=== PATIENT | female | born 1945 | race Caucasian/White ===

== ENCOUNTER 2016-07-01 16:48 | Emergency (ER) | payer OTHER ==
[~2016-07-01] VITALS: Ht 147.3 cm; Wt 80.3 kg
[~2016-07-01 16:48] MED LIST: ADVAIR 250-501 EACH INH; ADVAIR DISKUS1 UNIT INH; ALPHA LIPOIC A300 MG PO; AMITRIPTYLINE H25 M1 PO; AMLODIPINE BESY10 M1 PO; AMLODIPINE5 MG PO; ASPIRIN EC81 M1 PO; ATORVASTATIN CA20 MG PO; AVAPRO 150MG150 MG PO; AVAPRO300 M1 PO; CALCIUM CARBON500 M2 PO; CLON TOP; COREG12.5 M1 PO; CYMBALTA60 M1 PO; DEMADEX20 M1 PO; DILAUDID2 MG PO; DULOXETINE HYDR60 MG PO; FENTANYL TR12 MCG/HR TOP; FERROUS SULFAT325 M2 PO; FUROSEMIDE80 MG PO; GABA TOP; GABAPENTIN400 MG PO; HYDRALAZINE HCL50 M1 PO; HYDRALAZINE HCL50 MG PO; IRBESARTAN150 MG PO; IRBESARTAN75 MG PO; ISOSORBIDE MONO60 M1 PO; LASIX40 MG PO; LEVEMIR FL100 UNIT/1 SC; LEVOTHYROXINE100 MC1 PO; LEVOXYL88 MCG PO; LIDOCAINE51 TD; LIPITOR20 M2 PO; LYRICA25 MG PO; NEURONTIN300 MG PO; NORTRIPTYLINE H25 M1 PO; NOVOLOG100 UNIT/2 SC; OXYCODONE5 MG PO; PROAIR HFA8.5 GM INH; PROBIOTIC1 EAC1 PO; PROLIA60 MG/1 ML SC; TORSEMIDE20 M1 PO; TRIPLE OMEGA C400 MG PO; VITAMIN D33000 UNIT PO; [UNRECOGNIZED DRUG - OTHER] TOP
[2016-07-01 17:28] VITALS: BP 143/86
--- NOTE | 2016-07-01 18:01 | ED UPPER/LOWER EXTREMITY COMPL ---
History of Present Illness General Chief Complaint: Lower Extremity Problems Stated Complaint: LEFT ANKLE AND KNEE PAIN Source: patient Exam Limitations: no limitations Vital Signs & Intake/Output Vital Signs & Intake/Output Vital Signs Date Time Temp Pulse Resp B/P Pulse O2 O2 Flow FiO2 Ox Delivery Rate 07/01 1728 98.0 73 18 143/86 99 Room Air Allergies Coded Allergies: povidone-iodine (From BETADINE) (RASH 10/22/15) soap (From BETADINE) (RASH 10/22/15) PARISH Inhibitors (Mild, COUGH 10/22/15) Triage Note: C/O LEFT KNEE PAIN SINCE YESTERDAY. STATES HAS HX OF ARTHRITIS IN LEFT KNEE, CORTISONE SHOT 3 WEEKS AGO. STATES SHE HAS CHRONIC PAIN, BUT WORSE SINCE LAST NIGHT WITH ANKLE PAIN AND SWELLING. IS SCHEDULE TOMORROW FOR APPOINTMENT WITH DR. NIÑO FOR ANOTHER CORTISONE SHOT. N Triage Nurses Notes Reviewed? yes HPI: This patient is a 70-year-old female with a past medical history including arthritis and CHF who presented to the emergency department today for a chief complaint of left knee pain. The patient reported that she is scheduled for a cortisone injection into her left knee with known arthritis by Jose Luis Cotto MD tomorrow. However, she reported that yesterday she began having increased pain in her knee which gets up to an 8 out of 10 and is throbbing. She reported that today she also noticed pain in her ankle and some swelling in her lower leg. The patient denied any redness. The patient reported difficulty with ambulation. She reported, "I need something for pain to get me through until tomorrow." The patient denied any back pain, bowel or bladder incontinence, paresthesias, hip pain, abdominal pain, or any other associated symptoms. (MORELIA ALEX,BRANDY) Reconcile Medications Albuterol Sulfate (Proair Hfa) 8.5 GM HFA.AER.AD 1 PUF INH PRN ASTHMA ( Reported) Alpha Lipoic Acid 300 MG CAPSULE 1 CAP PO BID SUPPLEMENT (Reported) Amlodipine Besylate 10 MG TABLET 1 TAB PO DAILY BP (Reported) Aspirin (Ecotrin*) 81 MG TABLET.DR 1 TAB PO DAILY HEART/BLOOD (Reported) Atorvastatin Calcium (Lipitor) 20 MG TABLET 1 TAB PO DAILY CHOLESTEROL ( Reported) Calcium Carbonate 500 MG TABLET 1,250 MG PO TID calcium Carvedilol (Coreg) 25 MG TABLET 1 TAB PO BID BP (Reported) Cholecalciferol (Vitamin D3) (Vitamin D3) 3,000 UNIT TABLET 1 TAB PO DAILY SUPPLEMENT (Reported) [CLON/DIC/TAMMI/IMIP] OINT.APPL 2-4 RICARDO TOP AD PRN SHINGLES (Reported) Denosumab (Prolia) 60 MG/1 ML SYRINGE 60 MG SC Q6M BONES (Reported) Duloxetine HCl (Cymbalta) 60 MG CAPSULE. 1 CAP PO DAILY BACK PAIN/DEPRESSION (Reported) Ferrous Sulfate 325 MG TABLET.DR 325 MG PO BID iron deficiency Fish Oil/Borage/Flax/Om3,6,9#1 (Triple [place] Complex 3-6-9) 400 MG CAPSULE 1 CAP PO BID SUPPLEMENT (Reported) Fluticasone/Salmeterol (Advair 250-50 Diskus) 1 EACH BLST.W.DEV 1 PUF INH BID ASTHMA (Reported) Hydralazine HCl 50 MG TABLET 1 TAB PO TID BP (Reported) Insulin Aspart (Novolog) (Unknown Strength) VIAL 0 SC TIDAC DIABETES ( Reported) Blood Sugar: Insulin dose 80-150 No change 151-200 Plus 2 Units 201-250 Plus 4 Units 251-300 Plus 6 Units 301-350 Plus 8 Units 351-400 Plus 10 Units >400 Plus 12 Units Insulin Detemir (Levemir) 100 UNIT/1 ML VIAL 65 UNITS SC QPM DIABETES ( Reported) Irbesartan (Avapro) 300 MG TABLET 1 TAB PO DAILY BP (Reported) Isosorbide Mononitrate (Isosorbide Mononitrate ER) 60 MG TAB.ER.24H 60 MG PO DAILY htn Lactobacillus Combination No.4 (Probiotic) 1 EACH CAPSULE 2 CAP PO DAILY PROBIOTIC (Reported) Levothyroxine Sodium 100 MCG TABLET 1 TAB PO DAILY AC THYROID (Reported) Levothyroxine Sodium (Levoxyl) 88 MCG TABLET 1 TAB PO DAILY AC THYROID ( Reported) Torsemide (Demadex) 20 MG TABLET 3 TAB PO BID EDEMA Tramadol HCl 50 MG TABLET 1 TAB PO DAILY PAIN (JAZMIN FOREMAN DO) Past History Travel History Traveled to [place] past 21 day No Medical History Any Pertinent Medical History? 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 SISTER (Pancreatic cancer). Hx Contributory? No (BRANDY THIBODEAUX PA-C) Review of Systems Review of Systems Constitutional: Reports: no symptoms. EENTM: Reports: no symptoms. Respiratory: Reports: no symptoms. Cardiovascular: Reports: no symptoms. Gastrointestinal/Abdominal: Reports: no symptoms. Genitourinary: Reports: no symptoms. Musculoskeletal: Reports: see HPI. Skin: Reports: no symptoms. Neurological/Psychological: Reports: no symptoms. All Other Systems: Reviewed and Negative (BRANDY THIBODEAUX PA-C) Physical Exam Physical Exam General Appearance: well developed/nourished, no apparent distress, alert, awake Comments: Well-developed well-nourished person in no acute distress HEENT: Normal EENT exam, head normocephalic, moist mucous membranes Neck: Supple, no lymphadenopathy Back: Normal inspection Respiratory: No respiratory distress. Speaking in full sentences Left lower extremity: Full range of motion of the knee and ankle. Effusion noted to the lateral aspect of the knee. Tenderness to palpation over the lateral aspect of the knee and patellar tendon. Nonpitting edema to the lower extremity. No calf pain. Negative Homans sign. No tenderness to palpation over the ankle. Dorsalis pedis and posterior tibialis pulses 2+ and strong Neuro: Alert oriented x3, motor sensory normal, cranial nerves II through XII grossly intact. Skin: No appreciable rash on exposed skin, skin is warm and dry. Psych: Mood and affect is normal (BRANDY THIBODEAUX PA-C) Progress Differential Diagnosis: arterial insufficiency, cellulitis, CHF, compartment syndrome, contusion, dislocation, DVT, fracture, gout, septic arthritis, sprain, tendon injury Plan of Care: Orders Procedure Date/time Status XRY-KNEE, LEFT 07/01 1805 Active XRY-ANKLE 3 OR MORE VIEWS L 07/01 1805 Active Diagnostic Imaging: Viewed by Me: Ultrasound. Discussed w/RAD: Ultrasound. Radiology Impression: PATIENT: JOSELYN DUARTE PRESENT AGE: 70 PATIENT ACCOUNT NO: [id number] : 45 LOCATION: [facility] ORDERING PHYSICIAN: BRANDY THIBODEAUX PA-C SERVICE DATE: 07/01/16 EXAM TYPE: US - US-UNILATERAL VENOUS DOPPLER EXAMINATION: US TRIPLEX LOWER EXTREMITY, LEFT CLINICAL INFORMATION: Left lower extremity edema and swelling. COMPARISON: None. TECHNIQUE: Color-flow triplex imaging with spectral analysis and compression Doppler were performed on the left lower extremity. FINDINGS: Respiratory variation, normal compression and augmented flow are noted throughout the lower extremity. The visualized common femoral vein, femoral vein, profunda femoral vein, popliteal vein and midcalf peroneal and posterior tibial venous segments show no evidence of deep venous thrombosis. There is a small Cardoso's cyst within the left popliteal fossa measuring 3.8 x 1.4 x 1.9 cm. IMPRESSION: No evidence of deep venous thrombosis involving the left lower extremity. There is a small Cardoso's cyst within the left popliteal fossa, as detailed above. DICTATED BY: MELINDA DAS MD DATE/TIME DICTATED:07/01/161853 SOFTWARE DEVELOPMENT COORDINATOR:DEEP DATE/TIME TRANSCRIBED:07/01/161853 CONFIDENTIAL, DO NOT COPY WITHOUT APPROPRIATE AUTHORIZATION. <Electronically signed in Other Vendor System> SIGNED BY: MELINDA DAS MD 07/01/169 Comments: 07/01/2016 7:25:18 PM: Dr. Foreman was at the patient's bedside for [id number] evaluation. She will follow up with doctor, Dr. COTTO in the morning for a cortisone injection. No acute findings on ultrasound or x-ray. (MORELIA ALEX,BRANDY) Departure Departure Disposition: HOME OR SELF CARE Condition: Stable Clinical Impression Primary Impression: Osteoarthritis Qualifiers: Osteoarthritis location: knee Osteoarthritis type: unspecified Laterality: left Qualified Code: M17.12 - Unilateral primary osteoarthritis, left knee Referrals: [facility] CASTRO MD (PCP/Family) Additional Instructions: Please follow-up with the orthopedic physician as previously scheduled. Take medication for pain as prescribed. Return for any worsening symptoms or concerns. Departure Forms: Customer Survey General Discharge Information Prescriptions: Current Visit Scripts Tramadol HCl 1 TAB PO DAILY #4 TAB (BRANDY THIBODEAUX PA-C) PA/WORM SORTER Co-Sign Statement Statement: ED Attending supervision documentation- [x] I saw and evaluated the patient. I have also reviewed all the pertinent lab results and diagnostic results. I agree with the findings and the plan of care as documented in the PA's/WORM SORTER's documentation. [] I have reviewed the ED Record and agree with the PA's/WORM SORTER's documentation. [] Additions or exceptions (if any) to the PAs/WORM SORTER's note and plan are summarized below: [] (JAZMIN FOREMAN DO
--- NOTE | 2016-07-01 18:59 | ULTRASOUND REPORT ---
EXAMINATION: US TRIPLEX LOWER EXTREMITY, LEFT CLINICAL INFORMATION: Left lower extremity edema and swelling. COMPARISON: None. TECHNIQUE: Color-flow triplex imaging with spectral analysis and compression Doppler were performed on the left lower extremity. FINDINGS: Respiratory variation, normal compression and augmented flow are noted throughout the lower extremity. The visualized common femoral vein, femoral vein, profunda femoral vein, popliteal vein and midcalf peroneal and posterior tibial venous segments show no evidence of deep venous thrombosis. There is a small Cardoso's cyst within the left popliteal fossa measuring 3.8 x 1.4 x 1.9 cm. IMPRESSION: No evidence of deep venous thrombosis involving the left lower extremity. There is a small Cardoso's cyst within the left popliteal fossa, as detailed above.
--- NOTE | 2016-07-01 19:19 | RADIOLOGY REPORT ---
EXAMINATION: XR KNEE, LEFT XR LEFT ANKLE CLINICAL INFORMATION: Left ankle and left knee pain. COMPARISON: None. TECHNIQUE: AP, lateral and bilateral oblique views of the left knee. AP, lateral and oblique views of the left ankle. FINDINGS: Left knee: Multiple views of the left knee demonstrate tricompartmental osteoarthrosis of the left knee joint, characterized by joint space narrowing, subchondral sclerosis and juxta marginal osteophyte formation. Degenerative changes are most significant within the patellofemoral compartment. There is mild to moderate osteoarthrosis of the medial and lateral tibiofemoral compartments. Incidental note is made of a large enthesophyte arising from the upper pole of the patella. No acute fracture or dislocation of the left knee is identified. There is no significant joint effusion. Left ankle: No acute fracture or dislocation of the left ankle. The left ankle mortise is intact. There is no significant anterior posterior ankle joint effusion. Incidental note is made of mild degenerative changes involving the talonavicular joint. A small inferior calcaneal heel spur is identified at the site of insertion of the plantar aponeurosis. IMPRESSION: 1. Tricompartmental osteoarthrosis of the left knee joint, most significant within the patellofemoral compartment. No acute fracture or dislocation of the left knee. A large enthesophyte arising from the upper pole of the patella. 2. No acute fracture or dislocation of the left ankle.
[2016-07-01] MEDS ORDERED: TRAMADOL HCL50 M1 PO (19:27)
== END 2016-07-01 19:37 ==
LOC: ERH 16:48
DX: M17.9 Osteoarthritis of knee, unspecified (principal); M25.572 Pain in left ankle and joints of left foot
CPT/HCPCS: 73560-LT; 73610-LT

== ENCOUNTER 2016-07-08 12:38 | Inpatient (IN) | payer OTHER ==
[~2016-07-08] VITALS: Ht 147.3 cm; Wt 81.8 kg
[~2016-07-08 12:38] MED LIST changes: +TRAMADOL HCL50 M1 PO
--- NOTE | 2016-07-08 12:43 | ED GENERAL ADULT ---
History of Present Illness General Chief Complaint: Dyspnea (COPD, CHF, Other) Stated Complaint: SOB Source: patient Exam Limitations: no limitations Vital Signs & Intake/Output Vital Signs & Intake/Output Vital Signs Date Time Temp Pulse Resp B/P Pulse O2 O2 Flow FiO2 Ox Delivery Rate 07/08 1814 Nasal 4.0L Cannula 07/08 1727 98.5 79 22 172/60 95 Nasal 4.0L Cannula 07/08 1613 82 22 172/68 92 Nasal 3.0L Cannula 07/08 1446 99.3 80 18 92 Nasal 3.0L Cannula 07/08 1306 92 Nasal 2.0L Cannula 07/08 1242 88 Room Air 07/08 1241 99.5 84 24 191/78 88 Room Air Allergies Coded Allergies: povidone-iodine (From BETADINE) (RASH 10/22/15) soap (From BETADINE) (RASH 10/22/15) PARISH Inhibitors (Mild, COUGH 10/22/15) Reconcile Medications Albuterol Sulfate (Proair Hfa) 8.5 GM HFA.AER.AD 1 PUF INH PRN ASTHMA ( Reported) Alpha Lipoic Acid 300 MG CAPSULE 1 CAP PO BID SUPPLEMENT (Reported) Amlodipine Besylate 10 MG TABLET 1 TAB PO DAILY BP (Reported) Aspirin (Ecotrin*) 81 MG TABLET.DR 1 TAB PO DAILY HEART/BLOOD (Reported) Carvedilol (Coreg) 12.5 MG TABLET 1 TAB PO BID BP (Reported) Cholecalciferol (Vitamin D3) (Vitamin D3) 3,000 UNIT TABLET 1 TAB PO DAILY SUPPLEMENT (Reported) Denosumab (Prolia) 60 MG/1 ML SYRINGE 60 MG SC Q6M BONES (Reported) Duloxetine HCl (Cymbalta) 60 MG CAPSULE.DR 1 CAP PO DAILY BACK PAIN/DEPRESSION (Reported) Fish Oil/Borage/Flax/Om3,6,9#1 (Triple [place] Complex 3-6-9) 400 MG CAPSULE 1 CAP PO BID SUPPLEMENT (Reported) Fluticasone/Salmeterol (Advair 250-50 Diskus) 1 EACH BLST.W.DEV 1 PUF INH BID ASTHMA (Reported) Hydralazine HCl 50 MG TABLET 1 TAB PO TID BP (Reported) Hydrocodone/Acetaminophen (Vicodin 5-300 MG Tablet) 5 MG-300 MG TABLET 1 TAB PO Q4-6 PRN KNEE PAIN (Reported) Insulin Aspart (Novolog) (Unknown Strength) VIAL 0 SC TIDAC DIABETES ( Reported) Blood Sugar: Insulin dose 80-150 No change 151-200 Plus 2 Units 201-250 Plus 4 Units 251-300 Plus 6 Units 301-350 Plus 8 Units 351-400 Plus 10 Units >400 Plus 12 Units Insulin Detemir (Levemir Flextouch) 100 UNIT/ML (3 ML) INSULN.PEN 66 U SC DAILY DIABETES (Reported) Irbesartan 300 MG TABLET 0.5 TAB PO DAILY HTN (Reported) Isosorbide Mononitrate (Isosorbide Mononitrate ER) 60 MG TAB.ER.24H 60 MG PO DAILY htn Lactobacillus Combination No.4 (Probiotic) 1 EACH CAPSULE 2 CAP PO DAILY PROBIOTIC (Reported) Levothyroxine Sodium (Levoxyl) 88 MCG TABLET 1 TAB PO DAILY AC THYROID ( Reported) Levothyroxine Sodium 100 MCG TABLET 1 TAB PO DAILY AC THYROID (Reported) Rosuvastatin Calcium (Crestor) 20 MG TABLET 1 TAB PO DAILY HYPERCHOLESTROLEMIA (Reported) Torsemide (Demadex) 20 MG TABLET 3 TAB PO DAILY EDEMA 3 PILLS IN AM. MORE IN PM IF NEEDED Triage Nurses Notes Reviewed? yes Onset: Abrupt Duration: day(s): Timing: recent history HPI: 07/08/16 1 PM This is a 70-year-old female presents to the emergency department complaining of difficulty breathing. The patient states she has a history of asthma. Today she became short of breath. EMS was called and she had very low oxygen saturation. In the emergency department she has bilateral expiratory wheezes and poor air entry. She had a room air oxygen saturation of 88%. The onset of the symptoms was abrupt in duration was just today, the severity is significant; as her symptoms required to come to the emergency department for care by ambulance. Past History Travel History Traveled to [place] past 21 day No Medical History Any Pertinent Medical History? 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 SISTER (Pancreatic cancer). Hx Contributory? No Review of Systems Review of Systems Constitutional: Denies: fever. EENTM: Denies: visual changes. Respiratory: Reports: cough, short of breath. Cardiovascular: Denies: chest pain. GI: Denies: abdominal pain. Genitourinary: Reports: no symptoms. Musculoskeletal: Reports: back pain. Skin: Denies: rash. Neurological/Psychological: Reports: no symptoms. Hematologic/Endocrine: Reports: no symptoms. Immunologic/Allergic: Reports: no symptoms. Physical Exam Physical Exam General Appearance: awake, anxious, moderate distress Head: atraumatic, normal appearance Eyes: Bilateral: normal appearance, PERRL, EOMI. Ears, Nose, Throat: normal pharynx, normal ENT inspection, hearing grossly normal Neck: normal inspection Respiratory: decreased breath sounds, accessory muscle use, wheezing Cardiovascular: regular rate/rhythm Peripheral Pulses: 4+ radial (R), 4+ radial (L) Gastrointestinal: non-tender Back: decreased range of motion Extremities: normal inspection, pedal edema Neurologic/Psych: no motor/sensory deficits, awake, alert, oriented x 3 Skin: intact, normal color, warm/dry Core Measures ACS in differential dx? Yes CVA/TIA Diagnosis: No Severe Sepsis Present: No Septic Shock Present: No Progress Differential Diagnoses I considered the following diagnoses in my evaluation of the patient: [COPD, pneumonia, CHF, bronchitis, acute coronary syndrome, pulmonary embolism] Plan of Care: Orders Procedure Date/time Status Heart Healthy Diet 07/09 B Active TROPONIN LEVEL 07/09 0600 Active CBC WITHOUT DIFFERENTIAL 07/09 06 Active BASIC ELECTROLYTES PLUS BUN&CR 07/09 0600 Active EKG 07/09 0600 Active Heart Healthy Diet 07/08 D Complete TROPONIN LEVEL 07/08 1900 Active BASIC ELECTROLYTES PLUS BUN&CR 07/08 1900 Active EKG 07/08 1900 Active Vital Signs 07/08 1729 Active Teach/Educate 07/08 1729 Active Nutritional Intake, Monitor 07/08 172 Active Isolation 07/08 1729 Complete Intake & Output 07/08 1729 Active Patient Care Conference 07/08 1729 Active Activity/Ambulation 07/08 1729 Active TRC EVALUATION (GEN) 07/08 1649 Active OXYGEN SETUP (GEN) 07/08 1649 Active Pathway - chart 07/08 1649 Active House Staff 07/08 1649 Active Patient Data 07/08 1649 Active Code Status 07/08 1649 Active Add-on Test (ER Only) 07/08 1551 Active Patient Data 07/08 1545 Active RAPID VIRAL INFLUENZA A 07/08 1535 Active Admit to inpatient 07/08 1531 Active Vital Signs 07/08 1531 Active Code Status 07/08 1531 Complete Intake & Output 07/08 1343 Active B-TYPE NATRIURETIC PEP (BNP) 07/08 1255 Complete TROPONIN LEVEL 07/08 1254 Complete D-DIMER 07/08 1254 Complete COMPREHENSIVE METABOLIC PANEL 07/08 1254 Complete CBC WITHOUT DIFFERENTIAL 07/08 1254 Complete EKG 07/08 1239 Active VTE Mechanical Prophylaxis 07/08 UNK Active 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 [employer] 07/08 UNK Active FingerStick- Glucose 07/08 UNK Active ECHOCARDIOGRAM 07/08 UNK Active Current Medications Sig/Larissa Start time Last Medication Dose Stop Time Status Admin Atorvastatin Calcium 20 MG DAILY@1700 07/09 1700 AC (Lipitor) Amlodipine Besylate 10 MG DAILY 07/09 1000 AC (Norvasc) Aspirin Buffered 81 MG DAILY 07/09 1000 AC (Ecotrin) Cholecalciferol 3,000 IU DAILY 07/09 1000 AC (Vitamin D) Duloxetine HCl 60 MG DAILY 07/09 1000 AC (Cymbalta) Isosorbide 60 MG DAILY 07/09 1000 AC Mononitrate (Imdur) Levothyroxine Sodium 0.088 MG DAILY AC 07/09 0700 AC (Synthroid) Levothyroxine Sodium 0.1 MG DAILY AC 07/09 0700 AC (Synthroid) Budesonide/ 2 PUF BID 07/08 2200 AC Formoterol Fumarate (Symbicort) Carvedilol 12.5 MG BID 07/08 2200 AC (Coreg) Heparin Sodium 5,000 UNIT Q8 07/08 220 AC (Porcine) Hydralazine HCl 50 MG TID 07/08 2200 AC (Apresoline) Insulin Detemir 33 UNITS BID 07/08 2200 AC (Levemir) Docusate Sodium 100 MG DAILY NEEDED PRN 07/08 1900 UNVr (Colace) Senna/Docusate Sodium 1 TAB BID PRN 07/08 1900 UNVr (Senokot S) Polyethylene Glycol 17 GM DAILY 07/08 1854 UNVr (Miralax) Albuterol Sulfate 3 ML Q4P PRN 07/08 1715 AC (Proventil) Laboratory Tests 07/08/16 1255: Anion Gap 10, Estimated GFR 30 L, BUN/Creatinine Ratio 40.6 H, Glucose 191 H, Calcium 8.4, Total Bilirubin 0.6, AST 23, ALT 29, Alkaline Phosphatase 80, Troponin I < 0.01, Xzr-I-Ivazbqcxjvk Pept 4480 H, Total Protein 6.9, Albumin 3.7, Globulin 3.2, Albumin/Globulin Ratio 1.2, D-Dimer 856 H, CBC w Diff NO MAN DIFF REQ, RBC 3.32 L, MCV 85.4, MCH 28.5, RDW 12.6, MPV 9.0, Gran % 80.4 H, Lymphocytes % 6.3 L, Monocytes % 8.2, Eosinophils % 4.8, Basophils % 0.3, Absolute Granulocytes 9.6 H, Absolute Lymphocytes 0.8 L, Absolute Monocytes 1.0 H, Absolute Eosinophils 0.6, Absolute Basophils 0, PUBS MCHC 33.3 Initial ED EKG: nonspecific ST T wave chg Departure Departure Disposition: STILL A PATIENT Condition: Stable Clinical Impression Primary Impression: COPD exacerbation Secondary Impressions: CHF (congestive heart failure), Hypoxia Referrals: [facility] CASTR[facility] MD (PCP/Family) Departure Forms: Customer Survey General Discharge Information Prescriptions: Current Visit Scripts Torsemide (Demadex) 3 TAB PO DAILY 30 Days 3 PILLS IN AM. MORE IN PM IF NEEDED Admission Note Spoke With: NICK BASSETT MD Documentation of Exam: Documentation of any treatments & extenuating circumstances including Concerns Regarding Discharge (functional status, medication knowledge or non-compliance, living conditions, etc.) that warrant an admission rather than observation: [The patient needs admission for albuterol and Atrovent nebulizers, IV steroids, inpatient echocardiogram, oxygen. She is profoundly short of breath when she is not on oxygen. She needs telemetry monitoring for hyperkalemia] Critical Care Note Critical Care Note Critical Care Time: 30-74 min
--- NOTE | 2016-07-08 12:46 | NUR ---
70 Y/O FEMALE BIBA FROM HOME FOR EVAL OF SOB. PT STATES "I KNEW SOMETHING WASN'T RIGHT THIS MORNING" BUT REPORTS SOB X APPROX 1 HOUR. RECEIVED OXYGEN EN ROUTE VIA NRB MASK, SAT 100% ON ARRIVAL TO ED. PT DENIES PAIN. SAT 88% RA, PLACED ON 2L NC, SAT 93-95% DENIES COUGH OR OTHER RECENT URI SYMPTOMS. SKIN PINK, WARM AND DRY. NO DIAPHORESIS NOTED. PT STATES SHE TAKES A WATER PILL AND DID TAKE THIS AM. +1 PITTING EDEMA NOTED BILATERALLY, L>R WHICH PT STATES "IS NORMAL" EKG COMPLETED ON ARRIVAL (PT HAS PAIN STIMULATOR) NORMAL SINUS ON MONITOR, RATE 80S MD AT BEDSIDE
[2016-07-08] MEDS ORDERED: CRESTOR20 M2 PO ×2 (12:50→16:55)
--- NOTE | 2016-07-08 12:53 | NUR ---
RT CALLED AND WILL BE DOWN FOR BREATHING TX
[2016-07-08] MEDS ORDERED: VICODIN 5-3001 EACH PO (12:54)
[2016-07-08 13:03] LABS: ABSOLUTE BASOPHIL COUNT 0 /CUMM (0.0-0.2); ABSOLUTE EOSINOPHIL COUNT 0.6 /CUMM (0.0-0.7); ABSOLUTE GRANULOCYTE CT 9.6 /CUMM (1.4-6.5); ABSOLUTE LYMPH COUNT 0.8 /CUMM (1.2-3.4); BASOPHIL % 0.3 % (0.0-2.0); EOSINOPHIL % 4.8 % (0-5); GRANULOCYTE % 80.4 % (42.2-75.2); HEMATOCRIT 28.4 % (37-47); MEAN CORPUSCULAR HGB 28.5 PG (27.0-31.0); MEAN CORPUSCULAR HGB CONC 33.3 G/DL (33.0-37.0); MEAN CORPUSCULAR VOLUME 85.4 FL (81.0-99.0); PLATELET COUNT 280 /CUMM (130-400); RBC DISTRIBUTION WIDTH 12.6 % (11.5-14.5); RED BLOOD CELL CT 3.32 /CUMM (4.20-5.40); WHITE BLOOD CELL COUNT 11.9 /CUMM (4.8-10.8)
--- NOTE | 2016-07-08 13:49 | NUR ---
PT RESTING COMFORTABLY IN STRETCHER. STATES SHE FEELS "BETTER" SAT 91-95% ON 2L. DENIES PAIN AWAITING DISPO
--- NOTE | 2016-07-08 13:52 | RADIOLOGY REPORT ---
EXAMINATION: XR PORTABLE CHEST CLINICAL INFORMATION: Shortness of breath. COMPARISON: Chest radiograph 10/30/2015. TECHNIQUE: Portable AP view of the chest was obtained. FINDINGS: There are increased interstitial and alveolar opacities with a lower lobe predominant distribution consistent with pulmonary edema. The cardiac silhouette is grossly enlarged. Spinal stimulator electrodes are noted. No acute osseous finding. IMPRESSION: Airspace disease most consistent with pulmonary edema.
--- NOTE | 2016-07-08 14:57 | NUR ---
INCREASED TO 3L, SAT 90-94% AWAITING DISPO WITH NO ADDITIONAL COMPLAINTS
--- NOTE | 2016-07-08 15:18 | NUR ---
PT STATES SHE "FEELS GOOD, I WANT TO GO HOME". SAT 92% ON 3L. PULSE 70'S. DR FOREMAN INTO SPEAK WITH PATIENT REGARDING LIKELY ADMISSION REPORT GIVEN TO INCOMING NURSE HAZEL
--- NOTE | 2016-07-08 15:20 | NUR ---
ASSUMED CARE OF PT. PT SEEN BY DR FOREMAN AND PT VERBALIZED UNDERSTANDING OF PLAN TO BE ADMITTED. PT REMAINS WITH SOME SOB. VITALS TAKEN. RESTING QUIELTY ON STRETCHER. O2 SATS ON 3 LITERS 92%, INCREASED TO 4 LITERS OXYGEBN
--- NOTE | 2016-07-08 15:58 | History & Physical ---
YAZAN GUTIERREZ,JEFFREY 07/08/16 1554: General Information and HPI Source of Information: patient, old records Exam Limitations: no limitations History of Present Illness: Patient is a 70-year-old female with significant past medical history of shingles, spinal stenosis on spinal stimulator since last 6 years, osteoarthritis, history of parathyroidectomy, diabetes, chronic kidney disease, asthma obstructive sleep apnea on CPAP, hypertension, hyperlipidemia, chronic diastolic heart failure, hypothyroidism, presented with chief complaints of gradually progressive shortness of breath since last 2 or 3 days. According to her, she was feeling short of breath since last 2-3 days, which was more with the walking and on lying down/Orthopnea. But she was comfortable at rest. On the day of admission in the morning she started having shortness of breath. She tried nebulization 2-3 times and even we used rescue inhalers without any improvement, so she called EMS and presented to the ED. She claims that she gained 12lb over 2 weeks. She also claims that she is having swelling in the left leg since last 2 years. Recently, she is feeling that the amount of swelling in the left leg has been increased. She also claims that she is very compliant with the medication she is on results and she is avoiding salt and fluid intake. She denies fever, chills, nausea, vomiting, cough, chest pain, wheezing, sick contact, palpitation, headache, dizziness, fall, decreased urine output. She already had her flu shot. Social history -she is retired, walks with can, independent in her activity, less than has been, denies smoking, denies alcohol use, denies illicit drug abuse. Surgical history-parathyroidectomy, carpal tunnel surgery, surgery for trigger finger Allergies - cough with PARISH inhibitor, Betadine Family history- Father of CHF Siblings have diabetes Consultants - Accounts Payable Representative-Dr. crawford Reproduction Order Processor- Dr Fernandez PCP-Kaiser Castro MD Order Clerk-Deneen Preciado MD, visited a year ago. Pain clinic Following CHF clinic-last visit was in summer 2014 Allergies/Medications Allergies: Coded Allergies: povidone-iodine (From BETADINE) (RASH 10/22/15) soap (From BETADINE) (RASH 10/22/15) PARISH Inhibitors (Mild, COUGH 10/22/15) Home Med list Albuterol Sulfate (Proair Hfa) 8.5 GM HFA.AER.AD 1 PUF INH PRN ASTHMA ( Reported) Alpha Lipoic Acid 300 MG CAPSULE 1 CAP PO BID SUPPLEMENT (Reported) Amlodipine Besylate 10 MG TABLET 1 TAB PO DAILY BP (Reported) Aspirin (Ecotrin*) 81 MG TABLET.DR 1 TAB PO DAILY HEART/BLOOD (Reported) Bumetanide 2 MG TABLET 1 TAB PO BID chf Carvedilol (Coreg) 12.5 MG TABLET 1 TAB PO BID BP (Reported) Cholecalciferol (Vitamin D3) (Vitamin D3) 3,000 UNIT TABLET 1 TAB PO DAILY SUPPLEMENT (Reported) Denosumab (Prolia) 60 MG/1 ML SYRINGE 60 MG SC Q6M BONES (Reported) Duloxetine HCl (Cymbalta) 60 MG CAPSULE. 1 CAP PO DAILY BACK PAIN/DEPRESSION (Reported) Fish Oil/Borage/Flax/Om3,6,9#1 (Triple [place] Complex 3-6-9) 400 MG CAPSULE 1 CAP PO BID SUPPLEMENT (Reported) Fluticasone/Salmeterol (Advair 250-50 Diskus) 1 EACH BLST.W.DEV 1 PUF INH BID ASTHMA (Reported) Hydralazine HCl 50 MG TABLET 1 TAB PO TID BP (Reported) Hydrocodone/Acetaminophen (Vicodin 5-300 MG Tablet) 5 MG-300 MG TABLET 1 TAB PO Q4-6 PRN KNEE PAIN (Reported) Insulin Aspart (Novolog) (Unknown Strength) VIAL 0 SC TIDAC DIABETES ( Reported) Blood Sugar: Insulin dose 80-150 No change 151-200 Plus 2 Units 201-250 Plus 4 Units 251-300 Plus 6 Units 301-350 Plus 8 Units 351-400 Plus 10 Units >400 Plus 12 Units Insulin Detemir (Levemir Flextouch) 100 UNIT/ML (3 ML) INSULN.PEN 66 U SC DAILY DIABETES (Reported) Irbesartan 300 MG TABLET 0.5 TAB PO DAILY HTN (Reported) Isosorbide Mononitrate (Isosorbide Mononitrate ER) 60 MG TAB.ER.24H 60 MG PO DAILY htn Lactobacillus Combination No.4 (Probiotic) 1 EACH CAPSULE 2 CAP PO DAILY PROBIOTIC (Reported) Levothyroxine Sodium (Levoxyl) 88 MCG TABLET 1 TAB PO DAILY AC THYROID ( Reported) Levothyroxine Sodium 100 MCG TABLET 1 TAB PO DAILY AC THYROID (Reported) Rosuvastatin Calcium (Crestor) 20 MG TABLET 1 TAB PO DAILY HYPERCHOLESTROLEMIA (Reported) Past History Travel History Traveled to [place] past 21 day No Medical History Neurological: SHINGLES EENT: SLEEP APNEA Cardiovascular: CHF, hypertension Respiratory: NONE Gastrointestinal: NONE Hepatic: NONE Renal: NONE Musculoskeletal: SPINAL STENOSIS Psychiatric: NONE Endocrine: diabetes, HYPOTHYROID Blood Disorders: NONE Cancer(s): NONE CRIMP SETTER/Reproductive: NONE History of MRSA: No History of VRE: No History of CDIFF: No Surgical History Surgical History: Parathyroidectomy, carpal tunnel surgery, trigger finger surgery Past Family/Social History Family History Relations & Conditions if any MOTHER (Diabetes mellitus, from diabetic complications). SISTER (Pancreatic cancer). Psychosocial History Services at Home: None Functional Ability ADLs Independent: dressing, eating, toileting, bathing. Ambulation: cane, Patient used a cane when outside the house but ambulates independently indoors. Review of Systems Review of Systems Constitutional: Reports: malaise. Denies: no symptoms. EENTM: Denies: no symptoms. Cardiovascular: Reports: see HPI, edema, orthopena, palpitations, peripheral edema. Respiratory: Reports: orthopnea, short of breath. Denies: cough, hemoptysis, sputum production, stridor, wheezing. GI: Reports: constipation. Denies: abdominal pain, bloating, diarrhea, distention, bowel incontinence, melena, nausea, bloody stool, changes in stool. Genitourinary: Denies: discharge, dysuria, frequency, hematuria, hesitation, nocturia, pain, urgency. Musculoskeletal: Reports: back pain, joint pain. Denies: gout, joint swelling, muscle pain, muscle stiffness, neck pain. Skin: Denies: change in skin color, change in hair/nails, dryness, erythema, jaundice, lesions, lymphangitis, lumps, moles. Neurological/Psychological: Denies: anxiety, confusion, depressed, dementia. Exam & Diagnostic Data Last 24 Hrs of Vital Signs/I&O Vital Signs Date Time Temp Pulse Resp B/P Pulse O2 O2 Flow FiO2 Ox Delivery Rate 07/08 1814 Nasal 4.0L Cannula 07/08 1727 98.5 79 22 172/60 95 Nasal 4.0L Cannula 07/08 1613 82 22 172/68 92 Nasal 3.0L Cannula 07/08 1446 99.3 80 18 92 Nasal 3.0L Cannula 07/08 1306 92 Nasal 2.0L Cannula 07/08 1242 88 Room Air 07/08 1241 99.5 84 24 191/78 88 Room Air Intake & Output 07/08 1600 07/08 0800 07/08 0000 Intake Total 10 Output Total Balance 10 Intake, IV 10 Patient 85.729 kg Weight Physical Exam General Appearance Alert, Oriented X3, Cooperative, No Acute Distress Skin No Rashes, No Breakdown HEENT Atraumatic, PERRLA, EOMI Neck Supple, No JVD Cardiovascular Regular Rate, Normal S1, Normal S2 Lungs bilateral basilar rales Abdomen Soft, No Tenderness, distended Neurological Normal Gait, Normal Speech Extremities No Clubbing, No Cyanosis, bilateral lower leg swelling, more in the left than the right. Vascular Normal Pulses, Pulses Symmetrical Assessment/Plan Assessment: Patient is a 70-year-old female with significant past medical history of shingles, spinal stenosis on spinal stimulator since last 6 years, osteoarthritis, history of parathyroidectomy, diabetes, chronic kidney disease, asthma obstructive sleep apnea on CPAP, hypertension, hyperlipidemia, chronic diastolic heart failure, hypothyroidism, presented with chief complaints of gradually progressive shortness of breath since last 2 or 3 days. Vital signs at the time of admission-temperature 99.5, pulse 84, respiratory 24, blood pressure 191/70, SPO2 88% on room air, which becomes SPO2 92% on 3 liter oxygen by nasal cannula. Chest x-ray 07/08/2016 Airspace disease most consistent with pulmonary edema Echocardiogram on 10/22/2015- LVEF 65%, mild concentric hypertrophy of and TSH , grade 2 diastolic dysfunction , mildly dilated left atrium , mild TR with mild pulmonary hypertension , moderate mitral annular calcification, PFT 11/18/2011 -mild obstructive lung disease with reversible component Pertinent labs -WBC 11.9, hemoglobin 9.4, Na -130,K-5.8, creatinine 1.7, BUN 69, Problem list - Acute CHF Chronic diastolic heart failure Hyponatremia Hyperkalemia Asthma not on home oxygen Obstructive sleep apnea on CPAP Type 2 diabetes Chronic kidney disease Hypertension Hyperlipidemia Hypothyroidism History of shingles spinal stenosis on spinal stimulator since last 6 years, Osteoarthritis history of parathyroidectomy Morbid obesity Plan - * Keep the patient in telemetry * Oxygen inhalation to keep SPO2 more than 92% * Injection Lasix 40 milligrams IV twice a day * We will hold Irbesartan as she is having Hyperkalemia. * We will regularly monitor BEP * If repeat predation we will remain high, then we will think of giving Kayexalate * We will also repeat troponin and EKG at 7 p.m. and 6 a.m. in the morning * Discussed with Dr. Fernandez, he will see the patient today and will do repeat echocardiogram tomorrow to see the status of ejection fraction and wall motion abnormality. * Daily weight * Strict intake output charting * We'll continue CPAP at night * We will continue Levemir 66U subcutaneously daily * We will regularly monitor blood sugar 3 times a day and bedtime and adjust with NovoLog according to sliding scale. * We'll continue tablet levothyroxin/aspirin/atorvastatin/Carvidilol/amlodipine at home doses * Diet-low salt, fluid restrictiion 1000cc, diabetic and heart healthy diet * DVT prophylaxis-ALP S/heparin * CODE STATUS-full code, POA- As Ranked By This Provider Problem List: 1. CHF (congestive heart failure) 2. Leg edema 3. Hypothyroidism 4. Diabetes 5. Chronic kidney disease 6. Hyperkalemia 7. Hyponatremia 8. Asthma Core Measures/Miscellaneous Acute Coronary Syndrome ACS Diagnosis: No Cerebrovascular Accident CVA/TIA Diagnosis: No Congestive Heart Failure CHF Diagnosis: Yes Venous Thromboembolism VTE Risk Factors: Age > 40 VTE Prophylaxis Ordered Inpt: Mechanical (ALPS/TEDS) No Mech VTE prophylaxis d/t: No contraindications No VTE Pharm Prophylaxis d/t: No contraindications VTE Diagnosis: No VTE Type: NONE VTE Confirmed by (Test): NONE Severe Sepsis Severe Sepsis Present: No Septic Shock Septic Shock Present: No Miscellaneous Documentation Attending Case Discussed With: NICK BASSETT MD Primary Care Physician: KAISER CASTRO MD Patient sees these Specialists Accounts Payable Representative-Dr. crawford Reproduction Order Processor- Dr Fernandez PCP-Kaiser Castro MD Order Clerk-Deneen Preciado MD, visited a year ago. Pain clinic Following CHF clinic-last visit was in summer 2014 Level of Patient Care: Telemetry Consults Needed: Consulting Specialty: Cardiology Consulting Physician: Dr. Fernandez Reason for Consult: CHF NICK BASSETT MD 07/08/16 1659: Attending MD Review Statement Attending Statement Attending MD Statement: examined this patient, discuss w/resident/PA/SHEET MET[employer] LAY OUT WORKER, agreed w/resident/PA/SHEET METAL LAY OUT WORKER, reviewed EMR data (avail), reviewed images Attending Assessment/Plan: 70 year old female with PMH DM, CKD, Chronic Diastolic Heart Failure and HTN here with acute SOB and acute hypoxemic resp failure (sat 88 % on RA). Chest xray read as pul edema and clinically pt is edematous with elevated BNP. Would treat with IV diuretics for CHF, strict I/O, Given hyperkalemia and STEVE on CKD hold ARB and watch BUN/Cre closely. Cont Hydralazine/Nitrate combination. Cardiology eval and repeat echo. DVT prophylaxis and f/u JOVANREYNA 07/08/16 1722: Resident Review Statement Resident Statement: discussed with transportation logistics internship Other Findings: She is 70-year-old woman with past medical history of hypertension, diastolic congestive heart failure with preserved ejection fraction, hypothyroidism, diabetes mellitus, obstructive sleep apnea on CPAP at night, chronic renal insufficiency, hyperlipidemia, asthma, history of coronary artery disease status post PCI with BMS in 2013 and history of osteoarthritis and spinal stenosis having pain stimulator presented to ER with complaint of shortness of breath on exertion, orthopnea and lower extremity swelling L>R. she had nebulization treatment and also used her rescue inhaler this morning but did not help. She denies any fever, chills, cough, chest congestion, chest pain or discomfort, palpitations, dizziness or lightheadedness, nausea, vomiting, abdominal pain. She reports constipation. Last bowel movement was 3 days ago. She is independent and has very good appetite. Denies any sick contacts at home. She denies smoking, alcohol drinking or illicit drug use. Reproduction Order Processor: Dr. Smith crawford Pain management Vitals on admission Temperature 99.5, pulse 84, respiratory rate 24, blood pressure 191/78 and oxygen saturation was 88% on room air. She was put on 2 L of oxygen by nasal cannula that was later increased to 3 L. And she was saturating between 92-95%. Positive physical exam findings: Bilateral lung crackles. Tachycardia. Bilateral lower extremity swelling L>R. Pertinent lab findings: WBC 11.9, H&H 9.4/28.4 (baseline) , sodium 130, potassium 5.8, BUN 69, creatinine 1.7 (close to baseline), glucose 191, proBNP 4480, d-dimer 856 EKG: Normal sinus rhythm with Heart rate 83, no acute ST-T wave changes, QTc 447 CXR: Airspace disease most consistent with pulmonary edema. Assessment and plan She is 70-year-old woman with multiple comorbidities is going to be admitted on telemetry floor for: 1. Acute hypoxemic respiratory failure most likely secondary to Acute on chronic diastolic congestive heart failure probably secondary to noncompliance with diet and hypertension. Last echo on 10/22/2015 showed left ventricular ejection fraction 65% and grade 2 diastolic dysfunction. She has history of asthma that can also contribute to her shortness of breath. 2. Leukocytosis. Most likely reactive 3. Normocytic anemia. Most likely anemia of chronic disease. H&H closer to her baseline. 4. Hyponatremia. Most likely hypervolemic hyponatremia in the setting of CHF. 5. Hyperkalemia. Unknown etiology. Might be secondary to being on ARB 6. Chronic renal insufficiency. likely due to diabetic nephropathy Stable. Creatinine around baseline 7. Hypertension. Poorly controlled 8. History of diabetes mellitus 9. History of hypothyroidism We will monitor her vitals closely. Will monitor her blood pressure closely. Will continue TRC nebs. Will keep her oxygen saturation more than 92%. Patient uses CPAP at night so will try to give her CPAP at night for her obstructive sleep apnea. We will start patient on IV Lasix 40 mg twice a day. Cardio consult. Echocardiogram. Serial EKGs and troponins. Strict I's and O's. Daily weights. Will repeat electrolytes later tonight and if potassium is still high we can give her Kayexalate by mouth. Will repeat labs in a.m. Will hold her ARB. Will continue other antihypertensives. Will closely monitor kidney functions being on Lasix. Will continueall other home medications. Subcutaneous heparin for DVT prophylaxis. Full code. POA is .
--- NOTE | 2016-07-08 16:13 | NUR ---
PT GIVEN MENU TO LOOK OVER AND WILL LET ME KNOW WHAT SHE WOULD LIKE TO EAT. PT VERBALIZED NEED FOR INSULIN WITH HER MEAL. HOUSE STAFF NOW IN TO SEE PT
--- NOTE | 2016-07-08 16:23 | Admission Certification ---
Admission Certification Certification Statement - As attending physician, I certify that at the time of - admission, based on clinical presentation, severity of - symptoms, need for further diagnostic testing and - therapeutic interventions, and risk of adverse outcomes - without in-hospital treatment, in my clinical assessment, - this patient requires an acute hospital stay for a minimum - of two nights or longer. I have also considered psychsocial - factors such as support system, advanced age, financial - issues, cognitive issues, and failed out-patient treatments, - past re-admission history, safety of patient, and lack of - compliance as applicable. Specific rationale supporting this admission is: ACUTE ASTHMA ND CHF EXACERBATION
--- NOTE | 2016-07-08 16:38 | NUR ---
REPORT CALLED TO MICHAEL ON TELE UNIT. MICHAEL AWARE PT WILL NEED INSULIN WITH DINNER
[2016-07-08] MEDS ORDERED: IRBESARTAN300 M1 PO (16:59)
[2016-07-08] MEDS ORDERED: DEMADEX20 M1 PO (17:04)
[2016-07-08 17:27] VITALS: BP 172/60
--- NOTE | 2016-07-08 18:37 | Cons- Cardiology ---
General Information and HPI Consulting Request Date of Consult: 07/08/16 Requested By: NICK BASSETT MD Reason for Consult: CHF Source of Information: patient Exam Limitations: no limitations History of Present Illness: 70 year old female with h/o CAD, LCX stentx2 in 2013, HTN, dyslipidemia, DM, CRI , CHF presented with acute dyspnea which started today in the morning. She reports weight gain of 12 lbs over the past 2 weeks, increased leg edema, dyspnea on exertion with mild activity and at rest. She reports left knee pain. She started Vicodin last week and has been more sleepy, she wakes up several times during the day feeling SOB. She uses nebs which improve her symptoms. She used nebulizer today for acute dyspnea but it did not help. She called me and she could not almost talk on the phone due to SOB. She called ambulance and was brought to ER. Symptoms improved on oxygen. She just received lasix 40 mg iv. She received Solumedrol in ER. She does not report any chest pain, palpitations, dizzines, fever, cough or chills. Allergies/Medications Allergies: Coded Allergies: povidone-iodine (From BETADINE) (RASH 10/22/15) soap (From BETADINE) (RASH 10/22/15) PARISH Inhibitors (Mild, COUGH 10/22/15) Home Med List: Albuterol Sulfate (Proair Hfa) 8.5 GM HFA.AER.AD 1 PUF INH PRN ASTHMA ( Reported) Alpha Lipoic Acid 300 MG CAPSULE 1 CAP PO BID SUPPLEMENT (Reported) Amlodipine Besylate 10 MG TABLET 1 TAB PO DAILY BP (Reported) Aspirin (Ecotrin*) 81 MG TABLET.DR 1 TAB PO DAILY HEART/BLOOD (Reported) Carvedilol (Coreg) 12.5 MG TABLET 1 TAB PO BID BP (Reported) Cholecalciferol (Vitamin D3) (Vitamin D3) 3,000 UNIT TABLET 1 TAB PO DAILY SUPPLEMENT (Reported) Denosumab (Prolia) 60 MG/1 ML SYRINGE 60 MG SC Q6M BONES (Reported) Duloxetine HCl (Cymbalta) 60 MG CAPSULE.DR 1 CAP PO DAILY BACK PAIN/DEPRESSION (Reported) Fish Oil/Borage/Flax/Om3,6,9#1 ([place] Complex 3-6-9) 400 MG CAPSULE 1 CAP PO BID SUPPLEMENT (Reported) Fluticasone/Salmeterol (Advair 250-50 Diskus) 1 EACH BLST.W.DEV 1 PUF INH BID ASTHMA (Reported) Hydralazine HCl 50 MG TABLET 1 TAB PO TID BP (Reported) Hydrocodone/Acetaminophen (Vicodin 5-300 MG Tablet) 5 MG-300 MG TABLET 1 TAB PO Q4-6 PRN KNEE PAIN (Reported) Insulin Aspart (Novolog) (Unknown Strength) VIAL 0 SC TIDAC DIABETES ( Reported) Blood Sugar: Insulin dose 80-150 No change 151-200 Plus 2 Units 201-250 Plus 4 Units 251-300 Plus 6 Units 301-350 Plus 8 Units 351-400 Plus 10 Units >400 Plus 12 Units Insulin Detemir (Levemir Flextouch) 100 UNIT/ML (3 ML) INSULN.PEN 66 U SC DAILY DIABETES (Reported) Irbesartan 300 MG TABLET 0.5 TAB PO DAILY HTN (Reported) Isosorbide Mononitrate (Isosorbide Mononitrate ER) 60 MG TAB.ER.24H 60 MG PO DAILY htn Lactobacillus Combination No.4 (Probiotic) 1 EACH CAPSULE 2 CAP PO DAILY PROBIOTIC (Reported) Levothyroxine Sodium (Levoxyl) 88 MCG TABLET 1 TAB PO DAILY AC THYROID ( Reported) Levothyroxine Sodium 100 MCG TABLET 1 TAB PO DAILY AC THYROID (Reported) Rosuvastatin Calcium (Crestor) 20 MG TABLET 1 TAB PO DAILY HYPERCHOLESTROLEMIA (Reported) Torsemide (Demadex) 20 MG TABLET 3 TAB PO DAILY EDEMA 3 PILLS IN AM. MORE IN PM IF NEEDED Current Medications: Current Medications Sig/Larissa Start time Last Medication Dose Route Stop Time Status Admin Acetaminophen/ 1 TAB Q6P PRN 07/08 1715 AC 07/08 Hydrocodone Bitart PO 1805 Albuterol Sulfate 3 ML Q4P PRN 07/08 1715 AC INH Albuterol Sulfate 3 ML ONCE ONE 07/08 1300 DC 07/08 INH 07/08 1301 1305 Amlodipine Besylate 10 MG DAILY 07/09 1000 AC PO Aspirin Buffered 81 MG DAILY 07/09 1000 AC PO Atorvastatin Calcium 20 MG DAILY@1700 07/09 1700 AC PO Budesonide/ 2 PUF BID 07/08 2200 AC Formoterol Fumarate INH Carvedilol 12.5 MG BID 07/08 2200 AC PO Cholecalciferol 3,000 IU DAILY 07/09 1000 AC PO Duloxetine HCl 60 MG DAILY 07/09 1000 AC PO Furosemide 40 MG 7:30 AM, & 4:30 PM 07/08 1730 AC 07/08 IV 1805 Heparin Sodium 5,000 UNIT Q8 07/08 2200 AC (Porcine) SC Hydralazine HCl 50 MG TID 07/08 2200 AC PO Insulin Aspart 0 TIDAC 07/09 0800 AC 07/08 SC 1805 Insulin Detemir 33 UNITS BID 07/08 2200 AC SC Ipratropium [place] 2.5 ML ONCE ONE 07/08 1300 DC 07/08 INH 07/08 1301 1305 Isosorbide 60 MG DAILY 07/09 1000 AC Mononitrate PO Levothyroxine Sodium 0.088 MG DAILY AC 07/09 07 AC PO Levothyroxine Sodium 0.1 MG DAILY AC 07/09 07 AC PO Methylprednisolone 0 .STK-MED ONE 07/08 1308 DC .ROUTE Methylprednisolone 125 MG ONCE ONE 07/08 1300 DC 07/08 IV 07/08 1301 1311 Review of Systems Review of Systems: 12 point ROS negative except HPI. 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 SISTER (Pancreatic cancer). Psychosocial History Where Do You Live? Home Services at Home: None Smoking Status: Never Smoked Functional Ability ADLs Independent: dressing, eating, toileting, bathing. Ambulation: cane, Patient used a cane when outside the house but ambulates independently indoors. Exam & Diagnostic Data Vital Signs and I&O Vital Signs Date Time Temp Pulse Resp B/P Pulse O2 O2 Flow FiO2 Ox Delivery Rate 07/08 1814 Nasal 4.0L Cannula 07/08 1727 98.5 79 22 172/60 95 Nasal 4.0L Cannula 07/08 1613 82 22 172/68 92 Nasal 3.0L Cannula 07/08 1446 99.3 80 18 92 Nasal 3.0L Cannula 07/08 1306 92 Nasal 2.0L Cannula 07/08 1242 88 Room Air 07/08 1241 99.5 84 24 191/78 88 Room Air Intake & Output 07/08 1600 07/08 0807/08 0000 Intake Total 10 Output Total Balance 10 Intake, IV 10 Patient 189 lb Weight Physical Exam: HEENT-PERRLA Neck-JVP elevated, no bruit Lungs-fine bibasilar crackles Heart S1S2 regular 1/6 BARRON Abdomen-soft, obese,not tender, not distended, BS+, no organomegaly Extremities-2+ bilateral edema, more on the left, 2+ pulses, no cyanosis Neuro-non focal Labs/Jose Alejandro Results: Laboratory Tests 07/08 1255 Chemistry Sodium (137 - 145 mmol/L) 130 L Potassium (3.5 - 5.1 mmol/L) 5.8 H Chloride (98 - 107 mmol/L) 99 Carbon Dioxide (22 - 30 mmol/L) 21 L Anion Gap (5 - 16) 10 BUN (7 - 17 mg/dL) 69 H Creatinine (0.5 - 1.0 mg/dL) 1.7 H Estimated GFR (>60 ml/min) 30 L BUN/Creatinine Ratio (7 - 25 %) 40.6 H Glucose (65 - 99 mg/dL) 191 H Calcium (8.4 - 10.2 mg/dL) 8.4 Total Bilirubin (0.2 - 1.3 mg/dL) 0.6 AST (14 - 36 U/L) 23 ALT (9 - 52 U/L) 29 Alkaline Phosphatase (<127 U/L) 80 Troponin I (< 0.11 ng/ml) < 0.01 Tik-O-Rwlhrfiggkg Pept (<125 pg/mL) 4480 H Total Protein (6.3 - 8.2 g/dL) 6.9 Albumin (3.5 - 5.0 g/dL) 3.7 Globulin (1.9 - 4.2 gm/dL) 3.2 Albumin/Globulin Ratio (1.1 - 2.2 %) 1.2 Coagulation D-Dimer (70 - 232 ng/ml) 856 H Hematology CBC w Diff NO MAN DIFF REQ WBC (4.8 - 10.8 /CUMM) 11.9 H RBC (4.20 - 5.40 /CUMM) 3.32 L Hgb (12.0 - 16.0 G/DL) 9.4 L Hct (37 - 47 %) 28.4 L MCV (81.0 - 99.0 FL) 85.4 MCH (27.0 - 31.0 PG) 28.5 RDW (11.5 - 14.5 %) 12.6 Plt Count (130 - 400 /CUMM) 280 MPV (7.4 - 10.4 FL) 9.0 Gran % (42.2 - 75.2 %) 80.4 H Lymphocytes % (20.5 - 51.1 %) 6.3 L Monocytes % (1.7 - 9.3 %) 8.2 Eosinophils % (0 - 5 %) 4.8 Basophils % (0.0 - 2.0 %) 0.3 Absolute Granulocytes (1.4 - 6.5 /CUMM) 9.6 H Absolute Lymphocytes (1.2 - 3.4 /CUMM) 0.8 L Absolute Monocytes (0.10 - 0.60 /CUMM) 1.0 H Absolute Eosinophils (0.0 - 0.7 /CUMM) 0.6 Absolute Basophils (0.0 - 0.2 /CUMM) 0 PUBS MCHC (33.0 - 37.0 G/DL) 33.3 Diagnostic Data EKG Results SR, electrical nerve stimulator causing artifact,no acute ST abnormalities CXR Results reviewed-CHF Assessment/Plan Assessment/Plan 1. Acute HFpEF Probable etiology is secondary to HTN, need to r/o ischemia/ACS. She is known to have CAD and transient ischemia may contribute to CHF. Nuclear stress test in May revealed small anterior, inferior ischemia. I discussed with her cardiac catheterization, but she elected medical Tx for now. 2. Hypertension, BP now elevated, her BP as outpatient runs 130-150 systolic 3. CRI likely due to diabetic nephropathy 4. Hypekalemia, hyponatremia, hyponatremia likely dilutional due to CHf and use of torsemide. She is chronically on ARB but her Na, and K has been normal. Plan: Lasix she was given 40 mg iv now. If no adequate response, increase to 80 mg iv bid monitor I's and O's monitor electrolytes hold irbesartan for now troponin x3 q 8 hours echo tomorrow continue pre admission cardiac meds-amlodipine, carvedilol, hydralazine, imdur continue nebs D dimer significantly elevated-recommend left leg US to r/o DVT-asymetrical edema Copies To: GLORIA GUTIERREZ,[facility] Consult Acknowledgment - Thank you for your consult request.
[2016-07-09 00:37] VITALS: BP 146/60
[2016-07-09 06:36] VITALS: BP 150/80
--- NOTE | 2016-07-09 08:06 | PN- Cardiology ---
Subjective Subjective: Patient feels good but still SOB going to the bathroom. No chest pain or palpitations. Review of Systems: negative Objective Vital Signs and I&Os Vital Signs Date Time Temp Pulse Resp B/P Pulse O2 O2 Flow FiO2 Ox Delivery Rate 07/09 0636 150/80 07/09 0120 75 97 07/09 0037 98.4 70 20 146/60 97 Nasal Cannula 07/09 0000 Nasal 4.0L Cannula 07/08 2309 80 160/70 07/08 2309 160/70 07/08 1814 Nasal 4.0L Cannula 07/08 1727 98.5 79 22 172/60 95 Nasal 4.0L Cannula 07/08 1613 82 22 172/68 92 Nasal 3.0L Cannula 07/08 1446 99.3 80 18 92 Nasal 3.0L Cannula 07/08 1306 92 Nasal 2.0L Cannula 07/08 1242 88 Room Air 07/08 1241 99.5 84 24 191/78 88 Room Air Intake & Output 07/09 0800 07/09 0000 07/08 1600 07/08 0800 07/08 0000 07/07 1600 Intake Total 120 120 10 Output Total 550 400 Balance -430 -280 10 Intake, IV 10 Intake, Oral 120 120 Output, Urine 550 400 Patient 185 lb 188 lb 189 lb Weight Physical Exam: Neck JVP elevated, no bruit Lungs-bibasilar crackles Heart-S1S2 regular Abdomen-soft, not tender, BS+, no organomegaly Ext=1-2+ edema, more on the left, improved, 2+ pulses, no cyanosis neuro-non focal Current Medications: Current Medications Sig/Larissa Start time Last Medication Dose Route Stop Time Status Admin Acetaminophen 650 MG ONCE ONE 07/08 2014 DC 07/08 PO 07/08 2015 230 Acetaminophen/ 1 TAB Q6P PRN 07/08 1715 AC 07/08 Hydrocodone Bitart PO 1805 Albuterol Sulfate 3 ML Q4P PRN 07/08 1715 AC INH Albuterol Sulfate 3 ML ONCE ONE 07/08 1300 DC 07/08 INH 07/08 1301 1305 Amlodipine Besylate 10 MG DAILY 07/09 1000 AC PO Aspirin Buffered 81 MG DAILY 07/09 1000 AC PO Atorvastatin Calcium 20 MG DAILY@1700 07/09 1700 AC PO Budesonide/ 2 PUF BID 07/08 2200 AC 07/08 Formoterol Fumarate INH 2309 Carvedilol 12.5 MG BID 07/08 2200 AC 07/08 PO 2309 Cholecalciferol 3,000 IU DAILY 07/09 1000 AC PO Docusate Sodium 100 MG DAILY NEEDED PRN 07/08 1900 AC PO Duloxetine HCl 60 MG DAILY 07/09 1000 AC PO Furosemide 40 MG 7:30 AM, & 4:30 PM 07/08 1730 AC 07/09 IV 0626 Heparin Sodium 5,000 UNIT Q8 07/08 220 AC 07/09 (Porcine) SC 0626 Hydralazine HCl 50 MG TID 07/08 220 AC 07/08 PO 2309 Insulin Aspart 0 TIDAC 07/09 0800 AC 07/08 SC 1805 Insulin Aspart 2 UNITS .STK-MED ONE 07/08 1759 DC [place] 07/08 1800 Insulin Detemir 33 UNITS BID 07/08 220 AC 07/08 SC 2309 Ipratropium [place] 2.5 ML ONCE ONE 07/08 1300 DC 07/08 INH 07/08 1301 1305 Isosorbide 60 MG DAILY 07/09 1000 AC Mononitrate PO Levothyroxine Sodium 0.088 MG DAILY AC 07/09 0700 AC 07/09 PO 0625 Levothyroxine Sodium 0.1 MG DAILY AC 07/09 0700 AC 07/09 PO 0625 Methylprednisolone 0 .STK-MED ONE 07/08 1308 DC .ROUTE Methylprednisolone 125 MG ONCE ONE 07/08 1300 DC 07/08 IV 07/08 1301 1311 Polyethylene Glycol 17 GM DAILY 07/08 1854 AC PO Senna/Docusate Sodium 1 TAB BID PRN 07/08 1900 AC PO Sodium Polystyrene 120 ML ONCE ONE 07/09 0300 DC 07/09 Sulfonate PO 07/09 0301 0423 Results Last 48 Hrs of Labs/Mics: Laboratory Tests 07/09/16 0725: Sodium Pending, Potassium Pending, Chloride Pending, Carbon Dioxide Pending, Anion Gap Pending, BUN Pending, Creatinine Pending, BUN/Creatinine Ratio Pending , Troponin I Pending, CBC w Diff Pending, WBC Pending, RBC Pending, Hgb Pending, Hct Pending, MCV Pending, MCH Pending, RDW Pending, Plt Count Pending, MPV Pending, PUBS MCHC Pending 07/08/16 1904: Anion Gap 15, Estimated GFR 30 L, BUN/Creatinine Ratio 41.2 H, Troponin I 0.01 07/08/16 1255: Anion Gap 10, Estimated GFR 30 L, BUN/Creatinine Ratio 40.6 H, Glucose 191 H, Calcium 8.4, Total Bilirubin 0.6, AST 23, ALT 29, Alkaline Phosphatase 80, Troponin I < 0.01, Oue-V-Androlvfues Pept 4480 H, Total Protein 6.9, Albumin 3.7, Globulin 3.2, Albumin/Globulin Ratio 1.2, D-Dimer 856 H, CBC w Diff NO MAN DIFF REQ, RBC 3.32 L, MCV 85.4, MCH 28.5, RDW 12.6, MPV 9.0, Gran % 80.4 H, Lymphocytes % 6.3 L, Monocytes % 8.2, Eosinophils % 4.8, Basophils % 0.3, Absolute Granulocytes 9.6 H, Absolute Lymphocytes 0.8 L, Absolute Monocytes 1.0 H, Absolute Eosinophils 0.6, Absolute Basophils 0, PUBS MCHC 33.3 Assessment/Plan Assessment/Plan 1. Acute HFpEF overall improved, weight down 3 lbs, still [place]TEGA 2. Hypertension-BP better today 3. CRI likely due to diabetic nephropathy-labs pending 4. Hypekalemia, hyponatremia, hyponatremia likely dilutional due to CHf and use of torsemide. She is chronically on ARB but her Na, and K has been normal. Plan: BMP, troponinx1 echo today left leg US continue Lasix 40 mg iv bid, if not adequate diuresis, increase to 80 mg iv bid once stable, will change iv lasix to po bumetanide Continue telemetry? Yes
[2016-07-09 08:08] LABS: ABSOLUTE BASOPHIL COUNT 0 /CUMM (0.0-0.2); ABSOLUTE EOSINOPHIL COUNT 0 /CUMM (0.0-0.7); ABSOLUTE GRANULOCYTE CT 9.3 /CUMM (1.4-6.5); ABSOLUTE LYMPH COUNT 0.7 /CUMM (1.2-3.4); ABSOLUTE MONOCYTE COUNT 0.4 /CUMM (0.10-0.60); BASOPHIL % 0 % (0.0-2.0); EOSINOPHIL % 0 % (0-5); HEMATOCRIT 27.6 % (37-47); MEAN CORPUSCULAR HGB 28.5 PG (27.0-31.0); MEAN CORPUSCULAR HGB CONC 33.4 G/DL (33.0-37.0); MEAN CORPUSCULAR VOLUME 85.4 FL (81.0-99.0); PLATELET COUNT 290 /CUMM (130-400); RBC DISTRIBUTION WIDTH 12.8 % (11.5-14.5); RED BLOOD CELL CT 3.23 /CUMM (4.20-5.40)
[2016-07-09 08:22] VITALS: BP 176/60
[2016-07-09 09:36] LABS: WHITE BLOOD CELL COUNT 10.4 /CUMM (4.8-10.8)
--- NOTE | 2016-07-09 10:25 | PN- Att Addend ---
Attending Addendum Attending Brief Note Patient seen and examined. Agree with the fall intern's note. Patient is feeling overall slightly better but very short of breath when she does minimal activity like going to the bathroom. She is a 70-year-old with diabetes, hypertension, chronic kidney disease and heart failure with preserved ejection fraction. We are treating her as an acute exacerbation of heart failure. We have her on 40 IV twice a day of Lasix but appreciate cardiology eval and will have a low threshold to make it 80 IV twice a day. Her sugars are uncontrolled despite her 66 units given in 2 divided doses of 33 units of her long-acting insulin, will tighten up her Novolog scale. She was still hyperkalemic, got Kayexalate in the ER continues to be on hold and will keep a close watch her BUN/creatinine and K
--- NOTE | 2016-07-09 11:30 | PN- Housestaff ---
Subjective Follow-up For: Acute on Chronic CHF Complaints: SOB on exersion Tele-Events Since Last Visit: Episodes of 3 -4 VT beats during the day, overnight NSR. Subjective: Patient is seen and examined at the bed side. She was c/o SOB when she went to the bathroom. Otherwise she was able to sleep with CPAP, overnight. Denies chest pain, nausea, fever, constipation. Review of Systems Constitutional: Reports: malaise, weakness. EENTM: Denies: no symptoms. Cardiovascular: Reports: edema, orthopena, palpitations, peripheral edema. Denies: chest pain. Respiratory: Reports: orthopnea, short of breath. Denies: cough, hemoptysis, sputum production, stridor, wheezing. Gastrointestinal: Reports: constipation, distention. Denies: abdominal pain, bloating, diarrhea, bowel incontinence, nausea. Genitourinary: Reports: frequency. Denies: discharge, dysuria. Musculoskeletal: Reports: back pain, joint pain, joint swelling. Objective Last 24 Hrs of Vital Signs/I&O Vital Signs Date Time Temp Pulse Resp B/P Pulse O2 O2 Flow FiO2 Ox Delivery Rate 07/09 1733 72 144/70 07/09 1530 98.2 72 20 144/70 94 Nasal 3.0L Cannula 07/09 0936 176/60 07/09 0935 176/60 07/09 0935 176/60 07/09 0935 176/60 07/09 0841 Nasal 4.0L Cannula 07/09 0822 97.9 84 20 176/60 94 Nasal 4.0L Cannula 07/09 0800 Nasal 4.0L Cannula 07/09 0636 150/80 07/09 0120 75 97 07/09 0037 98.4 70 20 146/60 97 Nasal Cannula 07/09 0000 Nasal 4.0L Cannula 07/08 2309 80 160/70 07/08 2309 160/70 Intake & Output 07/09 1600 07/09 0800 07/09 0000 Intake Total 720 120 120 Output Total 550 400 Balance 720 -430 -280 Intake, Oral 720 120 120 Output, Urine 550 400 Patient 83.915 kg 85.275 kg Weight Physical Exam General Appearance: Alert, Oriented X3, Cooperative, Mild Distress Skin: No Rashes, No Breakdown Neck: Supple, No JVD Cardiovascular: Normal S1, Normal S2 Lungs: Bilateral basilar crackles Abdomen: Soft, No Tenderness, Distended Neurological: Normal Gait, Normal Speech Extremities: No Clubbing, No Cyanosis, Bilateral leg edema, more in left than right Vascular: Normal Pulses, Pulses Symmetrical Assessment/Plan Assessment: Patient is a 70-year-old female with significant past medical history of shingles, spinal stenosis on spinal stimulator since last 6 years, osteoarthritis, history of parathyroidectomy, diabetes, chronic kidney disease, asthma obstructive sleep apnea on CPAP, hypertension, hyperlipidemia, chronic diastolic heart failure, hypothyroidism, presented with chief complaints of gradually progressive shortness of breath since last 2 or 3 days. Vital signs -temperature 98.2, pulse 72, respiratory 20, blood pressure 144/70, SPO2 94% on 3 liter oxygen by nasal cannula. Intake/Output - Problem list - Acute CHF Chronic diastolic heart failure Hyponatremia Hyperkalemia Asthma not on home oxygen Obstructive sleep apnea on CPAP Type 2 diabetes Chronic kidney disease Hypertension Hyperlipidemia Hypothyroidism History of shingles spinal stenosis on spinal stimulator since last 6 years, Osteoarthritis history of parathyroidectomy Morbid obesity Plan - * We will continue telemetry * Oxygen inhalation to keep SPO2 more than 92% * We will continue to hold Irbesartan as she is having Hyperkalemia, and restart if it become normal. * We will regularly monitor BEP * Serial troponin were negative. * We will follow the rcms of Dr. Fernandez,according to him we need to increase the dose of lasix and need to do Doppler of LLE, to r/o DVT * We will increase the dose of Inj Lasix to 80 mgs IV BID; after patient get adequate diuresis we can change IV lasix to PO Bumetenide * Echo showed Stage-2 Diastolic failure * Daily weight * Strict intake output charting * We'll continue CPAP at night * We will continue Levemir 33U s/c BID * We also increased the Insulin scale to High dose insilin scale. * We will regularly monitor blood sugar 3 times a day and bedtime and adjust with NovoLog according to sliding scale. * We'll continue tablet levothyroxin/aspirin/atorvastatin/Carvidilol/amlodipine at home doses * Diet-low salt, fluid restriction 1000cc, diabetic and heart healthy diet * DVT prophylaxis-ALP S/heparin * CODE STATUS-full code, POA- Problem List: 1. CHF (congestive heart failure) 2. SUSIE on CPAP Pain Ratin Pain Location: Back and Left knee Pain Goal: Remain pain free Pain Plan: MIld Tomorrow's Labs & Rationales: CBC,BEP DVT/Prophylaxis: mechanical, pharmacological Consulting Request: Consulting Specialty: Cardiology Consulting Physician: Dr. Fernandez Reason for Consult: CHF
--- NOTE | 2016-07-09 14:51 | ECHOCARDIOGRAM REPORT ---
JOSELYN DUARTE Age: 70 : 1945 Gender: F Exam Date: 07/09/2016 10:49 Exam Location: [address] Ht (in): 58 Wt (lb): 189 BSA: 1.92 BP: 150 / 80 Ordering Physician: REYNA ALDANA MD Referring Physician: REYNA ALDANA MD Technologist: Karthik Lugo [facility] Room Number: 185-2 Indications: Shortness of breath Rhythm: Sinus Technical Quality: good FINDINGS Left Ventricle Normal left ventricular wall motion. Normal size left ventricle. Normal left ventricular ejection fraction visually estimated at 65%. Left ventricular wall thickness mildly increased. "pseudonormal" filling pattern of the left ventricle for age (stage 2 diastolic dysfunction). Right Ventricle Normal right ventricular size and function. Right Atrium Normal right atrial size. Left Atrium Normal left atrial size. Mitral Valve Mitral annular calcification. Mild mitral regurgitation. Aortic Valve Diffuse thickening (sclerosis) of the aortic valve cusps without reduced excursion. Tricuspid Valve Structurally normal tricuspid valve. Mild tricuspid regurgitation. Right ventricular systolic pressure estimated at 45 mmHg. Pulmonic Valve Structurally normal pulmonic valve. Pericardium No pleural effusion. No pericardial effusion. Great Vessels Normal size aortic root. CONCLUSIONS Normal left ventricular ejection fraction visually estimated at 65%. Left ventricular wall thickness mildly increased. Mitral annular calcification. Mild mitral regurgitation. Diffuse thickening (sclerosis) of the aortic valve cusps without reduced excursion. Mild tricuspid regurgitation. Right ventricular systolic pressure estimated at 45 mmHg. "pseudonormal" filling pattern of the left ventricle for age (stage 2 diastolic dysfunction). High E/E' ratio consistent with high left atrial pressure. Marcio Mtz M.D. (Electronically Signed) Final Date: 09 July 2016 14:50 MEASUREMENTS (Male / Female) Normal Values 2D ECHO LV Diastolic Diameter PLAX 4.9 cm 4.2 - 5.9 / 3.9 - 5.3 cm LV Systolic Diameter PLAX 2.6 cm 2.1 - 4.0 cm LV Fractional Shortening PLAX 46.9 % 25 - 46 % LV Ejection Fraction 2D Teich 78.2 % IVS Diastolic Thickness 1.2 cm LVPW Diastolic Thickness 1.2 cm LV Relative Wall Thickness 0.5 RV Internal Dim ED PLAX 3.2 cm 1.9 - 3.8 cm LVOT Diameter 1.8 cm Aortic Root Diameter 2.5 cm LA Systolic Diameter LX 3.3 cm 3.0 - 4.0 / 2.7 - 3.8 cm LA Volume 67.0 cm 18 - 58 / 22 - 52 cm Ascending Aorta Diameter 2.7 cm DOPPLER AV Peak Velocity 212.0 cm/s AV Peak Gradient 18.0 mmHg AV Mean Velocity 138.0 cm/s AV Mean Gradient 9.0 mmHg AV Velocity Time Integral 43.9 cm LVOT Peak Velocity 143.0 cm/s LVOT Peak Gradient 8.2 mmHg LVOT Mean Velocity 101.0 cm/s LVOT Mean Gradient 5.0 mmHg LVOT Velocity Time Integral 34.3 cm LVOT Stroke Volume 87.3 cm AV Area Cont Eq vti 2.0 cm AV Area Cont Eq pk 1.7 cm MV Peak Velocity 171.0 cm/s MV Peak Gradient 11.7 mmHg MV Mean Velocity 106.0 cm/s MV Mean Gradient 5.0 mmHg Mitral E Point Velocity 180.0 cm/s Mitral A Point Velocity 143.0 cm/s Mitral E to A Ratio 1.3 MV PHT Velocity 188.0 cm/s MV Deceleration [place] 821.0 cm/s MV Pressure Half Time 68.7 ms MV Area PHT 3.2 cm MV Deceleration Time 229.0 ms MR Peak Velocity 539.5 cm/s MR Peak Gradient 116.4 mmHg TR Peak Velocity 568.0 cm/s TR Peak Gradient 129.1 mmHg Right Atrial Pressure 10.0 mmHg Pulmonary Artery Systolic Pressu 139.1 mmHg Right Ventricular Systolic Press 45.0 mmHg PV Peak Velocity 167.0 cm/s PV Peak Gradient 11.2 mmHg PV Mean Velocity 112.0 cm/s PV Mean Gradient 6.0 mmHg PV Velocity Time Integral 33.9 cm LV E' Lateral Velocity 12.3 cm/s Mitral E to LV E' Lateral Ratio 14.6 LV E' Septal Velocity 9.1 cm/s Mitral E to LV E' Septal Ratio 19.8
[2016-07-09 15:30] VITALS: BP 144/70
--- NOTE | 2016-07-09 17:10 | ULTRASOUND REPORT ---
EXAMINATION: US TRIPLEX LOWER EXTREMITY, LEFT CLINICAL INFORMATION: Left leg swelling and edema. COMPARISON: Left leg venous ultrasound of 07/01/2016. TECHNIQUE: Color-flow triplex imaging with spectral analysis and compression Doppler were performed on the left lower extremity. FINDINGS: Respiratory variation, normal compression and augmented flow are noted throughout the lower extremity. The visualized common femoral vein, superficial femoral vein, profunda femoral vein, popliteal vein and midcalf peroneal and posterior tibial venous segments show no evidence of deep venous thrombosis. Again noted is a small Cardoso's cyst. IMPRESSION: Normal triplex scan without evidence of deep venous thrombosis involving the left lower extremity.
--- NOTE | 2016-07-09 18:40 | Discharge Summary ---
Visit Information Visit Dates Admission Date: 07/08/16 Discharge Date: 07/13/2016 Hospital Course Course Attending Physician: Dr. KRISTAL GILMAN MD Primary Care Physician: KAISER CASTRO MD Consulting Request: Consulting Specialty: Cardiology Consulting Physician: Dr. Fernandez Reason for Consult: CHF Hospital Course: Patient is a 70-year-old female with significant past medical history of shingles, spinal stenosis on spinal stimulator since last 6 years, osteoarthritis, history of parathyroidectomy, diabetes, chronic kidney disease, asthma obstructive sleep apnea on CPAP, hypertension, hyperlipidemia, chronic diastolic heart failure, hypothyroidism, presented with chief complaints of gradually progressive shortness of breath since last 2 or 3 days. Vital signs at the time of admission-temperature 99.5, pulse 84, respiratory 24, blood pressure 191/70, SPO2 88% on room air, which becomes SPO2 92% on 3 liter oxygen by nasal cannula. Chest x-ray 07/08/2016 Airspace disease most consistent with pulmonary edema Acute on chronic CHF- On evaluation we found that the patient has generalized edema and chest x-ray was showing pulmonary edema. We admitted the patient into the telemetry. We gave her oxygen with the nasal cannula. We also started her on high dose Lasix 80 milligrams IV twice a day. We took cardiology consult and followed their rcms. We did Echo which showed stage 2 diastolic dysfunction. She responded well in next 2 or 3 days. We discharged her on by tablet bumetanide 2 milligrams twice a day. At the time of discharge her SPO2 was 97% on sitting and 92% on walking without oxygen, although she was feeling short of breath on exertion. We advised her to decrease the amount of fluid intake to 5628-5199 per day, and measure weight daily, and show the log to requirements analyst for futher management of medication. Uncontrolled hypertension- Patient blood pressure was continuously high. So we adjusted dose of antihypertensive including carvedilol increased to 25mg BID. Initially we stopped irbesartan because she was having hyperkalemia, later we again started her on tablet losartan 50 milligrams OD and discharge with the home doses of irbesartan. Blood pressure at the time of discharge was 160/80. Swelling in left Leg We evaluated the patient for DVT,triplex scan didnt showed any evidence of deep venous thrombosis. Allergies: Coded Allergies: povidone-iodine (From BETADINE) (RASH 10/22/15) soap (From BETADINE) (RASH 10/22/15) PARISH Inhibitors (Mild, COUGH 10/22/15) Disposition Summary Disposition Principal Diagnosis: Acute on Chronic CHF,HFpEF Additional Diagnosis: Hyponatremia Hyperkalemia Asthma not on home oxygen Obstructive sleep apnea on CPAP Type 2 diabetes Chronic kidney disease Hypertension Hyperlipidemia Hypothyroidism History of shingles spinal stenosis on spinal stimulator since last 6 years, Osteoarthritis history of parathyroidectomy Morbid obesit Discharge Disposition: home or self care Discharge Instructions General Discharge Information Code Status: Full Code Patient's Diet: Diabetic, heart Helathy, low salt , with FLuid restriction to 1500cc/day Patient's Activity: as tolerated Follow-Up Instructions/Appts: Please follow up with Dr Mtz/ Air Brake Worker next day of the discharge. Continue all medication as prescribed. Medications at Discharge Discharge Medications: Continue taking these medications: Amlodipine Besylate (Amlodipine Besylate) 10 MG TABLET 1 Tablet ORAL DAILY Comments: Last Taken:07/13/16 Time:9 AM Hydralazine HCl (Hydralazine HCl) 50 MG TABLET 1 Tablet ORAL THREE TIMES DAILY Comments: Last Taken:07/13/16 Time:9 AM Duloxetine HCl (Cymbalta) [address] Arndt Capsule ORAL DAILY Comments: Last Taken:07/13/16 Time:9 AM Levothyroxine Sodium (Levothyroxine Sodium) 100 MCG TABLET 1 Tablet ORAL DAILY BEFORE BREAKFAST Comments: TAKES A 100MCG AND AN 88MCG TO EQUAL 188MCG - TAKES 188MCG MON THROUGH SAT ONLY AND ON SUN PT JUST TAKES 100MCG Last Taken:07/13/16 Time:6 AM Levothyroxine Sodium (Levoxyl) 88 MCG TABLET 1 Tablet ORAL DAILY BEFORE BREAKFAST Comments: TAKES 100MCG AND 88MCG TO EQUAL 188MCG; TAKES 188MCG ON MON THROUGH SAT ONLY, TAKES 100MCG ON WEDNESDAY Last Taken:07/13/16 Time:6 AM Aspirin (Ecotrin*) [address] Arndt Tablet ORAL DAILY Comments: Last Taken:07/13/16 Time:9 AM Insulin Detemir (Levemir Flextouch) 100 UNIT/ML (3 ML) INSULN.PEN 66 Units Inject into fatty tissue DAILY Comments: Last Taken:07/13/16 Time:915 AM Insulin Aspart (Novolog) (Unknown Strength) VIAL 0 Inject into fatty tissue 3 TIMES DAILY BEFORE MEALS Instructions: Blood Sugar: Insulin dose 80-150 No change 151-200 Plus 2 Units 201-250 Plus 4 Units 251-300 Plus 6 Units 301-350 Plus 8 Units 351-400 Plus 10 Units >400 Plus 12 Units Comments: Last Taken:10/23/15 Time:415 PM Fluticasone/Salmeterol (Advair 250-50 Diskus) 1 EACH BLST.W.DEV 1 Puff Inhale through mouth TWICE DAILY Comments: Last Taken:10/24/15 Time:9 AM Albuterol Sulfate (Proair Hfa) 8.5 GM HFA.AER.AD 1 Puff Inhale through mouth as needed for ASTHMA Comments: NOT GIVEN IN HOSPITAL Cholecalciferol (Vitamin D3) (Vitamin D3) 3,000 UNIT TABLET 1 Tablet ORAL DAILY Comments: Last Taken:07/13/16 Time:1000 Denosumab (Prolia) 60 MG/1 ML SYRINGE 60 Milligram Inject into fatty tissue Q6M Comments: NOT GIVEN IN HOSPITAL Alpha Lipoic Acid (Alpha Lipoic Acid) 300 MG CAPSULE 1 Capsule ORAL TWICE DAILY Comments: NOT GIVEN IN HOSPITAL Lactobacillus Combination No.4 (Probiotic) 1 EACH CAPSULE 2 Capsule ORAL DAILY Comments: NOT GIVEN IN HOSPITAL Fish Oil/Borage/Flax/Om3,6,9#1 (Triple Garfield Complex 3-6-9) 400 MG CAPSULE 1 Capsule ORAL TWICE DAILY Comments: NOT GIVEN IN HOSPITAL Isosorbide Mononitrate (Isosorbide Mononitrate ER) 60 MG TAB.ER.24H 60 Milligram ORAL DAILY Days = 30 Comments: Last Taken:07/13/16 Time:1000 Hydrocodone/Acetaminophen (Vicodin 5-300 MG Tablet) 5 MG-300 MG TABLET 1 Tablet ORAL EVERY 4-6 HOURS as needed for KNEE PAIN Qty = 40 Rosuvastatin Calcium (Crestor) 20 MG TABLET 1 Tablet ORAL DAILY Irbesartan (Irbesartan) 300 MG TABLET 0.5 Tablet ORAL DAILY Qty = 90 Start taking the following new medications: Bumetanide (Bumetanide) 2 MG TABLET 1 Tablet ORAL TWICE DAILY Qty = 60 No Refills Comments: Last Taken:07/13/16 Time:1000 The following medications have been changed: Old: Carvedilol (Coreg) 12.5 MG TABLET 1 Tablet ORAL TWICE DAILY New: Carvedilol (Coreg) 25 MG TABLET 1 Tablet ORAL TWICE DAILY Days = 30 Comments: Last Taken:07/13/16 Time:9 AM Copies To: GLORIA GUTIERREZ,[facility]ISER; KUSUM GUTIERREZ,ERIKA Attending MD Review Statement Documenting Attending: SERJIO GUTIERREZ,NICK [place]
[2016-07-09 23:53] VITALS: BP 130/60
--- NOTE | 2016-07-10 07:14 | PN- Housestaff ---
YAZAN GUTIERREZ,JEFFREY 07/10/16 0714: Subjective Follow-up For: Acute on chronic CHF Complaints: complaining of shortness of breath after walking few steps to the bathroom Tele-Events Since Last Visit: There is no any overnight events. Normal sinus rhythm, heart rate between 69-82 Subjective: Patient is seen and examined at the bedside. She was feeling much comfortable while lying down and sitting position. She was complaining of shortness of breath when she walks down to the bathroom. Denies any nausea, chest pain, dizziness. Review of Systems Constitutional: Reports: weakness. EENTM: Denies: no symptoms. Cardiovascular: Denies: no symptoms. Respiratory: Reports: short of breath. Denies: cough, hemoptysis, orthopnea, sputum production. Gastrointestinal: Denies: no symptoms. Genitourinary: Denies: no symptoms. Musculoskeletal: Denies: no symptoms. Neurological/Psychological: Denies: no symptoms. Objective Last 24 Hrs of Vital Signs/I&O Vital Signs Date Time Temp Pulse Resp B/P Pulse O2 O2 Flow FiO2 Ox Delivery Rate 07/10 1329 91 Room Air Room Air 07/10 0951 168/70 07/10 0950 168/70 07/10 0950 168/70 07/10 0950 168/70 07/10 0820 94 Nasal 3.0L Cannula 07/10 0820 98.3 85 18 173/65 95 Nasal 3.0L Cannula 07/10 0047 76 95 07/10 0000 CPAP 07/09 2353 98.3 78 20 130/60 94 CPAP 07/09 2234 94 93 07/09 2116 62 130/60 07/09 2115 65 130/60 07/09 2115 92 Nasal 3.0L Cannula 07/09 1733 72 144/70 Intake & Output 07/10 1600 07/10 0800 07/10 0000 Intake Total 500 50 410 Output Total 850 900 Balance -350 -850 410 Intake, IV 100 20 Intake, Oral 400 50 390 Output, Urine 850 900 Patient 84.425 kg Weight Physical Exam General Appearance: Alert, Oriented X3, Cooperative, No Acute Distress Skin: No Rashes, No Breakdown HEENT: Atraumatic, PERRLA, EOMI Neck: Supple, No JVD Cardiovascular: Normal S1, Normal S2 Lungs: Clear to Auscultation, Normal Air Movement Abdomen: Soft, distended Neurological: Normal Gait, Normal Speech Extremities: No Clubbing, No Cyanosis, edema in the both lower legs has been decreased Vascular: Normal Pulses Assessment/Plan Assessment: Patient is a 70-year-old female with significant past medical history of shingles, spinal stenosis on spinal stimulator since last 6 years, osteoarthritis, history of parathyroidectomy, diabetes, chronic kidney disease, asthma obstructive sleep apnea on CPAP, hypertension, hyperlipidemia, chronic diastolic heart failure, hypothyroidism, presented with chief complaints of gradually progressive shortness of breath since last 2 or 3 days. Vital signs -temperature 98.4, pulse 85, respiratory 20, blood pressure 155/57, SPO2 93% on 3 liter oxygen by nasal cannula. Intake/Output - Problem list - Acute CHF Chronic diastolic heart failure Hyponatremia Hyperkalemia Asthma not on home oxygen Obstructive sleep apnea on CPAP Type 2 diabetes Chronic kidney disease Hypertension Hyperlipidemia Hypothyroidism History of shingles spinal stenosis on spinal stimulator since last 6 years, Osteoarthritis history of parathyroidectomy Morbid obesity Plan - * We will continue telemetry * Oxygen inhalation to keep SPO2 more than 92%, we will taper the oxygen. * We will continue to hold Irbesartan as she is having Hyperkalemia, and restart if it become normal. * We will regularly monitor BEP * Serial troponin were negative. * We will follow the rcms of Dr. Fernandez, * We will continue Inj Lasix to 80 mgs IV BID; after patient get adequate diuresis we can change IV lasix to PO Bumetenide * Echo showed Stage-2 Diastolic failure * Left lower leg Color Doppler, showed no evidence of DVT * Daily weight * Strict intake output charting * We'll continue CPAP at night * We will continue Levemir 33U s/c BID * We will continue Insulin scale to High dose insilin scale. * We will regularly monitor blood sugar 3 times a day and bedtime and adjust with NovoLog according to sliding scale. * We'll continue tablet levothyroxin/aspirin/atorvastatin/Carvidilol/amlodipine at home doses * Diet-low salt, fluid restriction 1000cc, diabetic and heart healthy diet * DVT prophylaxis-ALP S/heparin * CODE STATUS-full code, POA- Problem List: 1. Chronic kidney disease 2. Diabetes 3. CHF (congestive heart failure) 4. Hyperkalemia 5. Hyponatremia 6. Hypothyroidism 7. Hypoxia Pain Ratin Pain Location: back left knee Pain Goal: Remain pain free Pain Plan: ld Tomorrow's Labs & Rationales: bep DVT/Prophylaxis: mechanical, pharmacological Consulting Request: Consulting Specialty: Cardiology Consulting Physician: Dr. Fernandez Reason for Consult: CHF NICK BASSETT MD 07/10/16 1009: Attending MD Review Statement Attending Statement Attending MD Statement: examined this patient, discuss w/resident/PA/WATER VESSEL CAPTAIN, agreed w/resident/PA/WATER VESSEL CAPTAIN, reviewed EMR data (avail), discussed with nursing, discussed with case mgmt Attending Assessment/Plan: Patient still feeling short of breath. She is still on 3 L. Appreciate cardiology follow-up and we can keep on the Lasix 80 IV twice a day today. If she is better, than probably Bumex in a.m. Will watch her BEP closely. Appreciate cardiology follow-up and agree keep her off the arnulfo/arb given the hyperkalemia and the Angeli and the plan for likely Entresto as an outpatient.
[2016-07-10 08:20] VITALS: BP 173/65
--- NOTE | 2016-07-10 09:57 | PN- Cardiology ---
Subjective Subjective: Breathing better, still on 3L O2. Objective Vital Signs and I&Os Vital Signs Date Time Temp Pulse Resp B/P Pulse O2 O2 Flow FiO2 Ox Delivery Rate 07/10 08 98.3 85 18 173/65 95 Nasal 3.0L Cannula 07/10 0047 76 95 07/10 0000 CPAP 07/09 2353 98.3 78 20 130/60 94 CPAP 07/09 2234 94 93 07/09 2115 62 130/60 07/09 2114 65 130/60 07/09 2114 92 Nasal 3.0L Cannula 07/09 1733 72 144/70 07/09 1599 94 Nasal 3.0L Cannula 07/09 1530 98.2 72 20 144/70 94 Nasal 3.0L Cannula Intake & Output 07/10 0807/10 0000 07/09 1600 07/09 0000 Intake Total 50 410 720 120 120 Output Total 900 550 400 Balance -850 410 720 -430 -280 Intake, IV 20 Intake, Oral 50 390 720 120 120 Output, Urine 900 550 400 Patient 186 lb 185 lb 188 lb Weight Physical Exam: Neck JVP normal Lungs-clear bilaterally Heart-S1S2 regular, no murmur Abdomen-soft,not tender, BS+, no organomegaly, no masses Ext-improved edema, 2+ pulses Current Medications: Current Medications Sig/Larissa Start time Last Medication Dose Route Stop Time Status Admin Acetaminophen/ 1 TAB Q6P PRN 07/08 171 AC 07/09 Hydrocodone Bitart PO 1747 Albuterol Sulfate 3 ML Q4P PRN 07/08 1715 AC 07/09 INH 0841 Amlodipine Besylate 10 MG DAILY 07/09 1000 AC 07/09 PO 0935 Aspirin Buffered 81 MG DAILY 07/09 1000 AC 07/09 PO 0935 Atorvastatin Calcium 20 MG DAILY@1700 07/09 1700 AC 07/09 PO 1733 Budesonide/ 2 PUF BID 07/08 2199 AC 07/09 Formoterol Fumarate INH 2115 Carvedilol 12.5 MG BID 07/08 2199 AC 07/09 PO 211 Cholecalciferol 3,000 IU DAILY 07/09 1000 AC 07/09 PO 0935 Docusate Sodium 100 MG DAILY NEEDED PRN 07/08 1900 AC PO Duloxetine HCl 60 MG DAILY 07/09 1000 AC 07/09 PO 0935 Furosemide 80 MG 7:30 AM, & 4:30 PM 07/09 1630 AC 07/09 IV 1733 Furosemide 40 MG 7:30 AM, & 4:30 PM 07/08 1730 DC 07/09 IV 0626 Heparin Sodium 5,000 UNIT Q8 07/08 2200 AC 07/10 (Porcine) SC 0604 Hydralazine HCl 50 MG TID 07/08 2200 AC 07/09 PO 2115 Insulin Aspart 0 TIDAC 07/09 0800 AC 07/09 SC 1731 Insulin Detemir 33 UNITS BID 07/08 220 AC 07/09 SC 2116 Isosorbide 60 MG DAILY 07/09 1000 AC 07/09 Mononitrate PO 0936 Levothyroxine Sodium 0.088 MG DAILY AC 07/09 0700 AC 07/10 PO 0604 Levothyroxine Sodium 0.1 MG DAILY AC 07/09 0700 AC 07/10 PO 0604 Patient Medication 1 ED .STK-MED ONE 07/09 1329 FL Teaching ED 07/09 1330 Polyethylene Glycol 17 GM DAILY 07/08 1854 AC PO Senna/Docusate Sodium 1 TAB BID PRN 07/08 1900 AC PO Results Last 48 Hrs of Labs/Mics: Laboratory Tests 07/10/16 0650: Anion Gap 11, Estimated GFR 32 L, BUN/Creatinine Ratio 50.0 H 07/09/16 0725: Anion Gap 13, Estimated GFR 30 L, BUN/Creatinine Ratio 42.9 H, Troponin I 0.01 , CBC w Diff MAN DIFF ORDERED, RBC 3.23 L, MCV 85.4, MCH 28.5, RDW 12.8, MPV 9.0, Gran % 89.0 H, Lymphocytes % 6.9 L, Monocytes % 4.1, Eosinophils % 0, Basophils % 0 L, Absolute Granulocytes 9.3 H, Absolute Lymphocytes 0.7 L, Absolute Monocytes 0.4, Absolute Eosinophils 0, Absolute Basophils 0, Platelet Estimate VERIFIED BY SMEAR, Polychromasia 1+, PUBS MCHC 33.4 07/08/16 1904: Anion Gap 15, Estimated GFR 30 L, BUN/Creatinine Ratio 41.2 H, Troponin I 0.01 07/08/16 1255: Anion Gap 10, Estimated GFR 30 L, BUN/Creatinine Ratio 40.6 H, Glucose 191 H, Calcium 8.4, Total Bilirubin 0.6, AST 23, ALT 29, Alkaline Phosphatase 80, Troponin I < 0.01, [id number] Pept 4480 H, Total Protein 6.9, Albumin 3.7, Globulin 3.2, Albumin/Globulin Ratio 1.2, D-Dimer 856 H, CBC w Diff NO MAN DIFF REQ, RBC 3.32 L, MCV 85.4, MCH 28.5, RDW 12.6, MPV 9.0, Gran % 80.4 H, Lymphocytes % 6.3 L, Monocytes % 8.2, Eosinophils % 4.8, Basophils % 0.3, Absolute Granulocytes 9.6 H, Absolute Lymphocytes 0.8 L, Absolute Monocytes 1.0 H, Absolute Eosinophils 0.6, Absolute Basophils 0, PUBS MCHC 33.3 Recent Imaging Studies: Echo-normal LVEF, diastolic dysfunction Leg US-no DVT Assessment/Plan Assessment/Plan 1. Acute HFpEF overall improved, but weight unchanged still on 3L O2 2. Hypertension-BP better today 3. CRI likely due to diabetic nephropathy-renal function stable 4. Hypekalemia, hyponatremia-improved Plan: Lasix 80 mg iv bid wean off O2 BMP in the morning if weight down, oxygenating well, change iv Lasix to bumetanide 2 mg po bid tomorrow or Wednesday f/u with me scheduled on 07/13/16. keep of irbesartan if outpatient labs stable, will start Enteresto Continue telemetry? Yes
[2016-07-10] MEDS ORDERED: BUMETANIDE2 M1 PO (14:23)
--- NOTE | 2016-07-10 14:26 | Patient Discharge Instructions ---
Discharge Instructions General Discharge Information You were seen/treated for: Acute on chronic diastolic heart failure Special Instructions: Please follow-up with your centralized traffic control operator, Dr. Rebecca ware, 07/14/2016, for further management. Please follow-up with your PCP within a week of discharge. Please take the medication as advised. Diet Continue normal diet: No (heart healthy diet) Recommended Diet: Heart Healthy, low salt Activity Full Activity/No Limits: No (as tolerated) Acute Coronary Syndrome Inclusion Criteria At DC or during hospital stay patient has or had the following: ACS DIAGNOSIS No Discharge Core Measures Meds if any: Prescribed or Continued at Discharge Meds if any: NOT Prescribed or Continued at Discharge Congestive Heart Failure Inclusion Criteria At DC or during hospital stay patient has or had the following: CHF DIAGNOSIS No Discharge Core Measures Meds if any: Prescribed or Continued at Discharge Meds if any: NOT Prescribed or Continued at Discharge Cerebrovascular accident Inclusion Criteria At DC or during hospital stay patient has or had the following: CVA/TIA Diagnosis No Discharge Core Measures Meds if any: Prescribed or Continued at Discharge Meds if any: NOT Prescribed or Continued at Discharge Venous thromboembolism Inclusion Criteria VTE Diagnosis No VTE Type NONE VTE Confirmed by (Test) NONE Discharge Core Measures - Per Current guidelines, there needs to be overlap - treatment for the first 5 days of Warfarin therapy. - If discharged on Warfarin prior to 5 days of - overlap therapy, the patient will need to be - assessed for post discharge needs including - *Post discharge parental anticoagulation - *Warfarin and/or parental anticoagulation education - *Follow up date to check INR post discharge At least 5 days overlap therapy as Inpatient No Meds if any: Prescribed or Continued at Discharge Warfarin No Note: Overlap Therapy is Warfarin and Anticoagulant Meds if any: NOT Prescribed or Continued at Discharge
[2016-07-10 16:34] VITALS: BP 155/57
[2016-07-10 23:58] VITALS: BP 128/62
--- NOTE | 2016-07-11 07:19 | PN- Housestaff ---
YAZAN GUTIERREZ,JEFFREY 07/11/16 0718: Subjective Follow-up For: Acute on chronic CHF Complaints: no complaints Tele-Events Since Last Visit: Normal sinus rhythm, heart rate 64-75, PVC, 6 beats of VT Subjective: Patient is seen and examined at the bedside. She was feeling much better. Even she claims that while going to the bathroom, she is less short of breath. I discussed with her about the further management. I told her that I'm going check the SPO2 after tapping down the oxygen. Review of Systems Constitutional: Denies: no symptoms. EENTM: Denies: no symptoms. Cardiovascular: Denies: chest pain, edema, orthopena, palpitations, peripheral edema. Respiratory: Denies: cough, hemoptysis, orthopnea, short of breath, sputum production. Gastrointestinal: Denies: abdominal pain, bloating, constipation, diarrhea. Genitourinary: Denies: discharge, dysuria, frequency, hematuria, hesitation. Musculoskeletal: Reports: back pain, joint pain. Denies: gout, joint swelling, muscle pain, muscle stiffness. Objective Last 24 Hrs of Vital Signs/I&O Vital Signs Date Time Temp Pulse Resp B/P Pulse O2 O2 Flow FiO2 Ox Delivery Rate 07/11 0839 94 Nasal 1.0L Cannula 07/11 0810 182/70 07/11 0810 182/70 07/11 0809 182/70 07/11 0809 182/70 07/11 0751 98.8 68 22 182/70 92 Room Air 07/11 0036 64 94 02/ 0000 CPAP 07/10 2358 98.0 67 20 128/62 95 BIPAP 07/10 2206 88 160/80 07/10 2206 88 160/80 07/10 2048 89 93 07/10 2047 93 Nasal 2.0L Cannula 07/10 1722 86 162/84 07/10 1634 98.4 85 20 155/57 93 Nasal 2.0L Cannula 07/10 1600 98 Nasal 1.5L Cannula 07/10 1329 91 Room Air Room Air 07/10 0951 168/70 07/10 0950 168/70 07/10 0950 168/70 07/10 0950 168/70 Intake & Output 07/11 1600 07/11 0800 07/11 0000 Intake Total 50 800 Output Total Balance 50 800 Intake, Oral 50 800 Patient 83.007 kg Weight Physical Exam General Appearance: Alert, Oriented X3, Cooperative, No Acute Distress Skin: No Rashes, No Breakdown Neck: Supple, No JVD Cardiovascular: Regular Rate, Normal S1, Normal S2 Lungs: Clear to Auscultation, Normal Air Movement Abdomen: Soft, No Tenderness, distended Neurological: Normal Speech Extremities: No Clubbing, No Cyanosis, mild edema Vascular: Normal Pulses, Pulses Symmetrical Assessment/Plan Assessment: Patient is a 70-year-old female with significant past medical history of shingles, spinal stenosis on spinal stimulator since last 6 years, osteoarthritis, history of parathyroidectomy, diabetes, chronic kidney disease, asthma obstructive sleep apnea on CPAP, hypertension, hyperlipidemia, chronic diastolic heart failure, hypothyroidism, presented with chief complaints of gradually progressive shortness of breath since last 2 or 3 days. Vital signs -temperature 98.4, pulse 85, respiratory 20, blood pressure 155/57, SPO2 93% on 3 liter oxygen by nasal cannula. Intake/Output - 1350/1750, - 400 Problem list - Acute CHF Chronic diastolic heart failure Hyponatremia Hyperkalemia Asthma not on home oxygen Obstructive sleep apnea on CPAP Type 2 diabetes Chronic kidney disease Hypertension Hyperlipidemia Hypothyroidism History of shingles spinal stenosis on spinal stimulator since last 6 years, Osteoarthritis history of parathyroidectomy Morbid obesity Plan - * We will follow the rcms of Dr. Fernandez, * While walking patient was desaturating between 80-88%. Discussed with Dr. Fernandez over the phone. According to him, continue IV furosemide 40 milligrams twice a day for today and will watch tomorrow. Her blood pressure is also very high between 180/60, discuss with Dr. Fernandez. He wanted to start patient on Entresto. It is available only in the medium doses to the pharmacy. So we decided to start the patient on tablet losartan 50 milligrams once a day and will start Entresto as an outpatient * We will continue telemetry * Later in the day Dr. Thornton advised to Increase Lasix to 60mg IV BID,Continue Losartan at 25mg daily for afterload reduction and increase Coreg to 25mg BID * We will follow the chest x-ray tomorrow. * Oxygen inhalation to keep SPO2 more than 92%, we will taper the oxygen. * We will regularly monitor BEP * Daily weight * Strict intake output charting * We'll continue CPAP at night * We will continue Levemir 33U s/c BID * We will continue Insulin scale to High dose insilin scale. * We will regularly monitor blood sugar 3 times a day and bedtime and adjust with NovoLog according to sliding scale. * We'll continue tablet levothyroxin/aspirin/atorvastatin/Carvidilol/amlodipine at home doses * Diet-low salt, fluid restriction 1000cc, diabetic and heart healthy diet * DVT prophylaxis-ALP S/heparin * CODE STATUS-full code, POA- Problem List: 1. CHF (congestive heart failure) 2. Hypothyroidism 3. Diabetes 4. Chronic kidney disease Pain Ratin Pain Location: back and knee Pain Goal: Remain pain free Pain Plan: mild Tomorrow's Labs & Rationales: bep DVT/Prophylaxis: mechanical, pharmacological Consulting Request: Consulting Specialty: Cardiology Consulting Physician: Dr. Fernandez Reason for Consult: CHF ACE GUTIERREZ,AMIR 07/11/16 1125: Attending MD Review Statement Attending Statement Attending MD Statement: examined this patient, agreed w/resident/PA/ENTRY LEVEL [employer]ALEGAL, discussed with family, reviewed EMR data (avail), discussed with nursing Attending Assessment/Plan: Ms. Weber was seen by me, chart reviewed. Currently reports doing better, on 1 L NC. During ambualtion she desaturated. However, denies SOB at rest or CP. Cr stable. Appreciate cards input. Cont to titrate Oxy, elevate legs while in bed. Family updated by me. Rest of the plan as per resident's note. Ms. Weber was seen by me, chart reviewed. Currently reports doing better, on 1 L NC. During ambualtion she desaturated. However, denies SOB at rest or CP. Cr stable. Appreciate cards input. Cont to titrate Oxy, elevate legs while in bed. Family updated by me. Rest of the plan as per resident's note.
[2016-07-11 07:51] VITALS: BP 182/70
--- NOTE | 2016-07-11 08:42 | NUR ---
PT WAS 90 AT REST ON ROOM AIR, 87 AFTER AMBULATION ON ROOM AIR PT WAS 94 ON 2L AT REST AND 92 ON 2L AFTER AMBULATION RAHUL SONG
--- NOTE | 2016-07-11 09:08 | Event Note ---
Event Note Event Note: While walking patient was desaturating between 80-88%. Discussed with Dr. Fernandez over the phone. According to him, continue IV furosemide 40 milligrams twice a day for today and will watch tomorrow. Her blood pressure is also very high between 180/60, discuss with Dr. Fernandez. He wanted to start patient on Entresto. It is available only in the medium doses to the pharmacy. So we decided to start the patient on tablet losartan 50 milligrams once a day and will start Entresto as an outpatient
--- NOTE | 2016-07-11 09:48 | PN- Cardiology ---
Subjective Subjective: * Patient is lying supine without any shortness of breath. She did desaturate with ambulation today. No other cardiovascular symptomatology. * creatinine elevated but stable at 1.6 * Mild anemia Objective Vital Signs and I&Os Vital Signs Date Time Temp Pulse Resp B/P Pulse O2 O2 Flow FiO2 Ox Delivery Rate 07/11 0924 166/70 07/11 0839 94 Nasal 1.0L Cannula 07/11 0810 182/70 07/11 0810 182/70 07/11 0809 182/70 07/11 0809 182/70 07/11 0751 98.8 68 22 182/70 92 Room Air 07/11 0036 64 94 02/ 0000 CPAP 07/10 2358 98.0 67 20 128/62 95 BIPAP 07/10 2206 88 160/80 07/10 2206 88 160/80 07/10 2048 89 93 07/10 2047 93 Nasal 2.0L Cannula 07/10 1722 86 162/84 07/10 1634 98.4 85 20 155/57 93 Nasal 2.0L Cannula 07/10 1600 98 Nasal 1.5L Cannula 07/10 1329 91 Room Air Room Air 07/10 0951 168/70 07/10 0950 168/70 07/10 0950 168/70 07/10 0950 168/70 Intake & Output 07/11 1600 07/11 0800 / 0000 /03 1600 07/10 0800 07/10 0000 Intake Total 50 800 500 50 410 Output Total 850 900 Balance 50 800 -350 -850 410 Intake, IV 100 20 Intake, Oral 50 800 400 50 390 Output, Urine 850 900 Patient 183 lb 186 lb Weight Physical Exam: General: WD/ obese female in NAD; alert and oriented x 3 Neck: no JVD Heart: RRR w/o murmur Lungs: clear bilaterally Extremities: 1+ left LE edema Assessment/Plan Assessment/Plan * Patient feels improved overall. She is hypertensive with decreased oxygenation upon ambulation. Continue Losartan at 25mg daily for afterload reduction and increase Coreg to 25mg BID to improve hemodynamics in the setting of restrictive filling patten. This will also improve her BP. * Increase Lasix to 60mg IV BID and monitor her BUN, creatinine and potassium. * Obtain a chest X-ray in the morning. Continue telemetry? Yes
[2016-07-11 16:22] VITALS: BP 158/62
--- NOTE | 2016-07-11 19:48 | RADIOLOGY REPORT ---
EXAMINATION: XR CHEST CLINICAL INFORMATION: Shortness of breath, CHF COMPARISON: October 21, 2015 and July 08, 2016 chest x-rays TECHNIQUE: 2 views of the chest were obtained. FINDINGS: Hypoventilatory exam. The cardiac size is unremarkable. Atherosclerotic calcifications of aortic arch is seen. The trachea and melissa are within normal limits. There has been interval improvement of aeration of lungs since July 08, 2016 chest x-ray. However there are bilateral patchy areas of airspace disease. Findings could represent pneumonia. Blunting of left costophrenic angle can be due to a small left-sided pleural effusion. No pneumothorax. Spinal stimulator electrodes again noted. IMPRESSION: 1. Interval improvement of pulmonary edema and aeration of lungs. Residual bilateral patchy airspace disease present at this time, which are in favor of pneumonia. Follow-up chest x-ray after completion of treatment of pneumonia is suggested to ensure clearance. 2. Small left-sided pleural effusion.
[2016-07-11 23:00] VITALS: BP 168/62
--- NOTE | 2016-07-12 08:00 | PN- Housestaff ---
LEELEE GUTIERREZ,[facility] 07/12/16 0759: Subjective Follow-up For: Acute on chronic CHF Subjective: Pt seen and examine, lying in bed in no acute distress, no complaints Review of Systems Constitutional: Denies: chills, fever. Cardiovascular: Denies: chest pain, palpitations. Respiratory: Denies: cough, short of breath, sputum production. Gastrointestinal: Denies: abdominal pain, constipation, diarrhea, nausea, vomiting. Genitourinary: Denies: dysuria, frequency. Objective Last 24 Hrs of Vital Signs/I&O Vital Signs Date Time Temp Pulse Resp B/P Pulse O2 O2 Flow FiO2 Ox Delivery Rate 07/12 1653 80 166/60 07/12 1600 Nasal 1.0L Cannula 07/12 1532 98.2 74 20 166/60 93 Nasal 1.0L Cannula 07/12 1020 95 Nasal 1.0L Cannula 07/12 0948 150/64 07/12 0948 150/64 07/12 0947 150/64 07/12 0947 150/64 07/12 0947 150/64 07/12 0823 97 Nasal 1.0L Cannula 07/12 0817 98.2 75 20 158/60 96 Nasal 1.0L Cannula 07/12 0039 67 96 07/11 2300 97.8 80 18 168/62 95 Nasal 1.0L Cannula 07/11 2137 81 200/78 07/11 2137 81 200/78 Intake & Output 07/12 1600 05 0800 07/12 0000 Intake Total 400 400 400 Output Total 1600 1400 750 Balance -1200 -1000 -350 Intake, Oral 400 400 400 Number 1 Bowel Movements Output, Urine 1600 1400 750 Patient 81.193 kg Weight Physical Exam General Appearance: Alert, Oriented X3, Cooperative, No Acute Distress Cardiovascular: Regular Rate, Normal S1, Normal S2, No Murmurs Lungs: Clear to Auscultation, Normal Air Movement Abdomen: Normal Bowel Sounds, Soft, No Tenderness Extremities: No Clubbing, No Cyanosis, No Edema Current Medications: Current Medications Sig/Larissa Start time Last Medication Dose Route Stop Time Status Admin Acetaminophen 650 MG ONCE ONE 07/12 1844 DC 07/12 PO 07/12 1845 1835 Acetaminophen/ 1 TAB Q6P PRN 07/08 1714 AC 07/09 Hydrocodone Bitart PO 174 Albuterol Sulfate 3 ML Q4P PRN 07/08 1715 DC 07/09 INH 0841 Amlodipine Besylate 10 MG Q24 07/12 1000 AC 07/12 PO 0948 Aspirin Buffered 81 MG DAILY 07/09 1000 AC 07/12 PO 0947 Atorvastatin Calcium 20 MG DAILY@1700 07/09 1700 AC 07/12 PO 1652 Budesonide/ 2 PUF BID 07/08 2200 AC 07/12 Formoterol Fumarate INH 0948 Bumetanide 2 MG BID 07/12 1557 AC 07/12 PO 1833 Carvedilol 25 MG BID 07/11 2200 AC 07/12 PO 0948 Cholecalciferol 3,000 IU DAILY 07/09 1000 AC 07/12 PO 0947 Docusate Sodium 100 MG DAILY NEEDED PRN 07/08 1900 AC 07/12 PO 0948 Duloxetine HCl 60 MG DAILY 07/09 1000 AC 07/12 PO 0947 Furosemide 60 MG 7:30 AM, & 4:30 PM 07/11 1630 DC 07/12 IV 0637 Heparin Sodium 5,000 UNIT Q8 07/08 2200 AC 07/12 (Porcine) SC 1256 Hydralazine HCl 50 MG TID 07/08 2200 AC 07/12 PO 1653 Insulin Aspart 0 TIDAC 07/09 0800 AC 07/12 SC 1719 Insulin Detemir 33 UNITS BID 07/08 2200 AC 07/12 SC 0949 Isosorbide 60 MG DAILY 07/09 1000 AC 07/12 Mononitrate PO 0947 Levothyroxine Sodium 0.088 MG DAILY AC 07/09 0700 AC 07/12 PO 0637 Levothyroxine Sodium 0.1 MG DAILY AC 07/09 0700 AC 07/12 PO 0637 Losartan Potassium 50 MG DAILY 07/11 1000 AC 07/12 PO 0947 Polyethylene Glycol 17 GM DAILY 07/08 1854 AC 07/11 PO 0808 Senna/Docusate Sodium 1 TAB BID PRN 07/08 1900 AC PO Assessment/Plan Assessment: Patient is a 70-year-old female with significant past medical history of shingles, spinal stenosis on spinal stimulator since last 6 years, osteoarthritis, history of parathyroidectomy, diabetes, chronic kidney disease, asthma obstructive sleep apnea on CPAP, hypertension, hyperlipidemia, chronic diastolic heart failure, hypothyroidism, presented with chief complaints of gradually progressive shortness of breath since last 2 or 3 days. Vital signs -temperature 98.4, pulse 85, respiratory 20, blood pressure 155/57, SPO2 93% on 3 liter oxygen by nasal cannula. Intake/Output - 1350/1750, - 400 Problem list - Acute CHF Chronic diastolic heart failure Hyponatremia Hyperkalemia Asthma not on home oxygen Obstructive sleep apnea on CPAP Type 2 diabetes Chronic kidney disease Hypertension Hyperlipidemia Hypothyroidism History of shingles spinal stenosis on spinal stimulator since last 6 years, Osteoarthritis history of parathyroidectomy Morbid obesity Plan - * We will follow the rcms of Dr. Fernandez, * While walking patient was desaturating between 80-88%. Discussed with Dr. Fernandez over the phone. According to him, continue IV furosemide 40 milligrams twice a day for today and will watch tomorrow. Her blood pressure is also very high between 180/60, discuss with Dr. Fernandez. He wanted to start patient on Entresto. It is available only in the medium doses to the pharmacy. So we decided to start the patient on tablet losartan 50 milligrams once a day and will start Entresto as an outpatient * We will continue telemetry * Later in the day Dr. Thornton advised to Increase Lasix to 60mg IV BID,Continue Losartan at 25mg daily for afterload reduction and increase Coreg to 25mg BID * We will follow the chest x-ray tomorrow. * Oxygen inhalation to keep SPO2 more than 92%, we will taper the oxygen. * We will regularly monitor BEP * Daily weight * Strict intake output charting * We'll continue CPAP at night * We will continue Levemir 33U s/c BID * We will continue Insulin scale to High dose insilin scale. * We will regularly monitor blood sugar 3 times a day and bedtime and adjust with NovoLog according to sliding scale. * We'll continue tablet levothyroxin/aspirin/atorvastatin/Carvidilol/amlodipine at home doses * Diet-low salt, fluid restriction 1000cc, diabetic and heart healthy diet * DVT prophylaxis-ALP S/heparin * CODE STATUS-full code, POA- Problem List: 1. Hypoxia 2. CHF (congestive heart failure) Pain Ratin Pain Location: none Pain Goal: Remain pain free Pain Plan: mild pp Tomorrow's Labs & Rationales: bep for lytes monitoring Consulting Request: Consulting Specialty: Cardiology Consulting Physician: Dr. Fernandez Reason for Consult: CHF ACE GUTIERREZ,AMIR 07/12/16 1153: Attending MD Review Statement Attending Statement Attending MD Statement: examined this patient, discuss w/resident/PA/SECURITY SUPPORT ANALYST, agreed w/resident/PA/SECURITY SUPPORT ANALYST, discussed with family, reviewed EMR data (avail), discussed with nursing Attending Assessment/Plan: Ms. Weber was seen by me, denies CP or SOB. Reports breathing has improved. CVR c/w improvement in pulm edema. Cr stable, Appreciate cards eval. Likely d/c in next 24 hts. Rest of the plan as per resident's note
[2016-07-12 08:17] VITALS: BP 158/60
--- NOTE | 2016-07-12 09:32 | PN- Cardiology ---
Subjective Subjective: * Patient is completely free of shortness of breath this morning and is lying flat. No chest discomfort or palpitations. She has minimal and transient lightheadedness. * Heart rate is well controlled with a sinus rhythm and occasional unifocal PVC' s * creatinine is 1.5 * WBC is now in the normal range Objective Vital Signs and I&Os Vital Signs Date Time Temp Pulse Resp B/P Pulse O2 O2 Flow FiO2 Ox Delivery Rate 07/12 822 97 Nasal 1.0L Cannula 07/12 08 98.2 75 20 158/60 96 Nasal 1.0L Cannula 07/12 0039 67 96 07/11 2300 97.8 80 18 168/62 95 Nasal 1.0L Cannula 07/11 2137 81 200/78 07/11 2137 81 200/78 07/11 1641 94 Nasal 1.0L Cannula 07/11 1622 98.1 76 16 158/62 95 Nasal 1.5L Cannula 07/11 1558 158/62 07/11 1204 98 Nasal 1.0L Cannula Intake & Output 07/12 1600 07/12 0807/12 0000 07/11 1600 07/11 0800 07/11 0000 Intake Total 400 400 400 50 800 Output Total 1400 750 800 Balance -1000 -350 -400 50 800 Intake, Oral 400 400 400 50 800 Output, Urine 1400 750 800 Patient 179 lb 183 lb Weight Physical Exam: General: WD/ obese female in NAD; alert and oriented x 3 Neck: no JVD Heart: RRR w/o murmur Lungs: clear bilaterally Extremities: no edema Assessment/Plan Assessment/Plan * Patient feels improved overall. She is mildly hypertensive. Continue Losartan at 25mg daily for afterload reduction and continue Coreg at 25mg BID to improve hemodynamics in the setting of restrictive filling patten as well as to lower her BP. * There is no evidence of persistent decompensated CHF clinically at this time. We will change to oral Bumex at 2mg BID. Stop IV Lasix. If the patient is stable on oral diuretics tomorrow then I would anticipate discharge. Continue to monitor her BUN, creatinine and potassium. * Obtain a chest X-ray today. Continue telemetry? Yes
[2016-07-12 15:32] VITALS: BP 166/60
--- NOTE | 2016-07-12 19:49 | RADIOLOGY REPORT ---
EXAMINATION: XR CHEST CLINICAL INFORMATION: CHF, shortness of breath COMPARISON: Prior chest x-rays 07/08/2016, July 11 2016. TECHNIQUE: 2 views of the chest were obtained. FINDINGS: The cardiomediastinal silhouette is stable and within normal limits. The trachea and melissa are unremarkable. Again noted the patchy bilateral areas of airspace disease, similar to the most recent comparison exam on 07/11/2016. The blunting of left costophrenic angle is unchanged and can represent a small left-sided pleural effusion. No pneumothorax. Spinal stimulator electrodes again noted. IMPRESSION: Bilateral patchy airspace disease, and a small left-sided pleural effusion similar to 07/11/2016 chest x-ray. Findings can represent pneumonia. Clinical correlation is advised.
[2016-07-12 21:00] VITALS: BP 204/58
[2016-07-12 22:07] VITALS: BP 158/50
[2016-07-12 23:47] VITALS: BP 175/64
--- NOTE | 2016-07-13 07:36 | PN- Housestaff ---
Subjective Follow-up For: acute on chronic CHF Complaints: no complaints Tele-Events Since Last Visit: No any overnight events Subjective: Patient is seen and examined at the bed side. She wants to go home. denies SOB, chest pain. Review of Systems Constitutional: Denies: no symptoms. EENTM: Denies: no symptoms. Cardiovascular: Denies: no symptoms. Respiratory: Denies: no symptoms. Gastrointestinal: Denies: no symptoms. Objective Last 24 Hrs of Vital Signs/I&O Vital Signs Date Time Temp Pulse Resp B/P Pulse O2 O2 Flow FiO2 Ox Delivery Rate 07/13 1153 94 160/80 Room Air 07/13 913 184/80 07/13 0914 184/80 07/13 0913 184/80 07/13 0913 184/80 07/13 0834 98.1 70 20 192/82 97 Nasal Cannula 07/13 0821 190/79 07/13 0000 Nasal 1.0L Cannula 07/13 0000 68 98 07/12 2347 98.7 70 20 175/64 97 07/12 2207 77 158/50 07/12 2100 82 204/58 Intake & Output 07/13 1600 07/13 0800 02 0000 Intake Total 100 720 Output Total Balance 100 720 Intake, Oral 100 720 Patient 81.817 kg 81.817 kg Weight Physical Exam General Appearance: Alert, Oriented X3, Cooperative, No Acute Distress Skin: No Rashes, No Breakdown HEENT: Atraumatic, PERRLA, EOMI Neck: Supple, No JVD Cardiovascular: Normal S1, Normal S2 Lungs: Clear to Auscultation, Normal Air Movement Abdomen: Soft, No Tenderness Neurological: Normal Speech Extremities: No Clubbing, No Cyanosis, No Edema, Normal Pulses Assessment/Plan Assessment: Patient is a 70-year-old female with significant past medical history of shingles, spinal stenosis on spinal stimulator since last 6 years, osteoarthritis, history of parathyroidectomy, diabetes, chronic kidney disease, asthma obstructive sleep apnea on CPAP, hypertension, hyperlipidemia, chronic diastolic heart failure, hypothyroidism, presented with chief complaints of gradually progressive shortness of breath since last 2 or 3 days. Vital signs -temperature 98.4, pulse 85, respiratory 20, blood pressure 155/57, SPO2 93% on 3 liter oxygen by nasal cannula. Intake/Output - 1520/3000, -1480 Problem list - Acute CHF Chronic diastolic heart failure Hyponatremia Hyperkalemia Asthma not on home oxygen Obstructive sleep apnea on CPAP Type 2 diabetes Chronic kidney disease Hypertension Hyperlipidemia Hypothyroidism History of shingles spinal stenosis on spinal stimulator since last 6 years, Osteoarthritis history of parathyroidectomy Morbid obesity Plan - * We will follow the rcms of Dr. Fernandez * While walking patients saturating 92 % off oxygen, and on sitting it was 97%. * Her BP was continuose towards higher side, discussed with Dr Fernandez acording to him he will see the patient as an outpatient and change the doses of antihypertensive medication. Advised to patient to follow Dr Fernandez on 07/14/2016 * We rechecked BP after some time and than BP was 160/80, discussed with Dr Michelle, and advised she can go. * Discussed with patient about the management of CHF, fluid restriction and daily weight mesurment. * We'll continue CPAP at night * We will continue Levemir 33U s/c BID * We will continue Insulin scale to High dose insilin scale. * We will regularly monitor blood sugar 3 times a day and bedtime and adjust with NovoLog according to sliding scale. * We'll continue tablet levothyroxin/aspirin/atorvastatin/Carvidilol/amlodipine at home doses * Diet-low salt, fluid restriction 1000cc, diabetic and heart healthy diet * DVT prophylaxis-ALP S/heparin * CODE STATUS-full code, POA- Problem List: 1. Diabetes 2. COPD exacerbation 3. Hypothyroidism 4. Chronic kidney disease 5. CKD stage G3b/A1, GFR 30-44 and albumin creatinine ratio <30 mg/g 6. CHF (congestive heart failure) Pain Ratin Pain Location: knee Pain Goal: Remain pain free Pain Plan: mild Tomorrow's Labs & Rationales: none DVT/Prophylaxis: mechanical, pharmacological Consulting Request: Consulting Specialty: Cardiology Consulting Physician: Dr. Fernandez Reason for Consult: CHF
[2016-07-13 08:34] VITALS: BP 192/82
[2016-07-13] MEDS ORDERED: COREG25 M1 PO (10:55)
[2016-07-13 11:53] VITALS: BP 160/80
--- NOTE | 2016-07-13 11:54 | NUR ---
PT WAS 94 AT REST ON RA AND 92 AFTER AMBULATION ON RA. MANI SONG
== END 2016-07-13 13:00 | DRG 291 ==
LOC: ENRESERVDT → ENRESERVTM → ERH 12:38 → ERHI 15:31 → ENPENDDIS 15:31 → 1NO 15:31
PROVIDERS: Emergency Medicine; Internal Medicine; ADMIT Internal Medicine
DX: I13.0 Hypertensive heart and chronic kidney disease with heart failure and stage 1 through stage 4 chronic kidney disease, or unspecified chronic kidney disease (principal); J96.01 Acute respiratory failure with hypoxia; I50.33 Acute on chronic diastolic (congestive) heart failure; E87.1 Hypo-osmolality and hyponatremia; J45.909 Unspecified asthma, uncomplicated; E87.5 Hyperkalemia; N18.9 Chronic kidney disease, unspecified; G47.33 Obstructive sleep apnea (adult) (pediatric); E66.01 Morbid (severe) obesity due to excess calories; Z68.39 Body mass index [BMI] 39.0-39.9, adult; E11.21 Type 2 diabetes mellitus with diabetic nephropathy; Z79.4 Long term (current) use of insulin; M48.00 Spinal stenosis, site unspecified; M19.90 Unspecified osteoarthritis, unspecified site; E78.5 Hyperlipidemia, unspecified; E03.9 Hypothyroidism, unspecified
CPT/HCPCS: 1NP; 1NSP; 36415; 82436; 87804; 87804-59; 93005; 93010; 93306; 96374; 99291; J1644; J1815; J1940; J2930; J3490

== ENCOUNTER 2016-11-02 13:54 | Inpatient (IN) | payer OTHER ==
[~2016-11-02] VITALS: Ht 147.3 cm; Wt 73.5 kg
[~2016-11-02 13:54] MED LIST changes: +BUMETANIDE2 M1 PO; +COREG25 M1 PO; +CRESTOR20 M2 PO; +IRBESARTAN300 M1 PO; +VICODIN 5-3001 EACH PO
--- NOTE | 2016-11-02 13:58 | ED SYNCOPE COMPLAINT ---
History of Present Illness General Chief Complaint: Syncope and Near-Syncope Stated Complaint: BIBA WITH SYNCOPE Source: patient, old records, EMS Exam Limitations: no limitations Vital Signs & Intake/Output Vital Signs & Intake/Output ED Intake and Output 11/05 0000 11/04 1200 Intake Total 200 Output Total 400 Balance -200 Intake, Oral 200 Output, Urine 400 Patient 162 lb Weight Allergies Coded Allergies: povidone-iodine (From BETADINE) (RASH 10/22/15) soap (From BETADINE) (RASH 10/22/15) PARISH Inhibitors (Mild, COUGH 10/22/15) Triage Nurses Notes Reviewed? yes Timing: recent history Precipitating Factors: lightheadedness Associated Symptoms: denies HPI: 71 Yearold female with significant past medical history of shingles, spinal stenosis on spinal stimulator since last 6 years, osteoarthritis, history of parathyroidectomy, diabetes, chronic kidney disease, asthma obstructive sleep apnea on CPAP, hypertension, hyperlipidemia, chronic diastolic heart failure, hypothyroidism presents brought in by ambulance after she had 2 near syncopal episodes prior to arrival. The patient states she was in her normal state of health this morning she took her 8 units of insulin after eating breakfast. She states she was sitting on the couch when she became dizzy lightheaded and felt nauseous. She states she's had similar symptoms in the past and was attributed to her blood sugar being low. She checked her sugar which was 144 and attempted to stand up when she states she became lightheaded and fell over. The patient denies passing out she denies any chest pain palpitations abdominal pain. No recent change in her bowel movements no black or bloody stools no change in her mental status per her who is now at bedside. The patient on my evaluation is without any complaints.. No recent change in her medication (STANTON NICHOLE,PUNEET) Reconcile Medications Albuterol Sulfate (Proair Hfa) 8.5 GM HFA.AER.AD 1 PUF INH PRN ASTHMA ( Reported) Alpha Lipoic Acid 300 MG CAPSULE 1 CAP PO BID SUPPLEMENT (Reported) Amitriptyline HCl 50 MG TABLET 25 MG PO BID SHINGLES PAIN (Reported) Amlodipine Besylate 5 MG TABLET 1 TAB PO DAILY htn Aspirin (Ecotrin*) 81 MG TABLET.DR 1 TAB PO DAILY HEART/BLOOD (Reported) Bumetanide 1 MG TABLET 2 TAB PO DAILY waterpill Carvedilol (Coreg) 25 MG TABLET 1 TAB PO BID HTN (Reported) Cholecalciferol (Vitamin D3) (Vitamin D3) 3,000 UNIT TABLET 1 TAB PO DAILY SUPPLEMENT (Reported) Denosumab (Prolia) 60 MG/1 ML SYRINGE 60 MG SC Q6M BONES (Reported) Duloxetine HCl (Cymbalta) 60 MG CAPSULE. 1 CAP PO DAILY BACK PAIN/DEPRESSION (Reported) Fish Oil/Borage/Flax/Om3,6,9#1 (Triple Quincy Complex 3-6-9) 400 MG CAPSULE 1 CAP PO BID SUPPLEMENT (Reported) Fluticasone/Salmeterol (Advair 250-50 Diskus) 1 EACH BLST.W.DEV 1 PUF INH BID ASTHMA (Reported) Hydralazine HCl 50 MG TABLET 1 TAB PO TID BP (Reported) Insulin Aspart (Novolog) (Unknown Strength) VIAL 0 SC TIDAC DIABETES ( Reported) Blood Sugar: Insulin dose 80-150 No change 151-200 Plus 2 Units 201-250 Plus 4 Units 251-300 Plus 6 Units 301-350 Plus 8 Units 351-400 Plus 10 Units >400 Plus 12 Units Insulin Aspart, Recombinant (Novolog Flexpen) 100 UNIT/ML INSULN.PEN 0 SC SI diabetes BEFORE MEALS Blood Insulin Sugar Units <80 0 81-100 2 101-200 4 201-250 6 251-300 8 301-350 10 351-400 12 >400 Call Doctor AT BEDTIME Blood Insulin Sugar Units <80 0 81-150 3 units bedtime scale 150-200 5 units 201-250 7 units 251-300 9 units 2 units 301-350 10 units 3 units 351-400 11 units 4 units >400 12 units 5 units >400 Call Doctor Insulin Detemir (Levemir) 100 UNIT/ML VIAL 20 UNITS SC AT BEDTIME diabetes Irbesartan 300 MG TABLET 0.5 TAB PO DAILY HTN (Reported) Isosorbide Mononitrate (Isosorbide Mononitrate ER) 60 MG TAB.ER.24H 60 MG PO DAILY htn Lactobacillus Combination No.4 (Probiotic) 1 EACH CAPSULE 2 CAP PO DAILY PROBIOTIC (Reported) Levothyroxine Sodium (Synthroid) 88 MCG TABLET 0.088 MG PO DAILY AC HYPOTHYROIDISM Rosuvastatin Calcium (Crestor) 20 MG TABLET 1 TAB PO DAILY HYPERCHOLESTROLEMIA (Reported) (AYDEE CARRANZA MD) Past History Travel History Traveled to [place] past 21 day No Medical History Any Pertinent Medical History? 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 SISTER (Pancreatic cancer). Hx Contributory? No (PUNEET SOLIS) Review of Systems Review of Systems Constitutional: Reports: see HPI. All Other Systems: Reviewed and Negative Comments Review of systems: See HPI, All other systems negative. Constitutional, no chills no fever, no malaise no weight loss HEENT: No visual changes no sore throat no congestion, no ear pain Cardiovascular: No chest pain , no palpitation , no orthopnea Skin: no rashes, no change in skin Respiratory: No dyspnea no cough no sputum no hemoptysis GI: No nausea no vomiting, no diarrhea, no bloating/constipation : No dysuria No hematuria, no frequency, no discharge Muscle skeletal: No joint pain, no joint swelling, no back pain, no neck pain, Neurologic: No numbness no confusion, no headache Psych: No stress no depression,. Heme/endocrine: No bruising no bleeding Immunology: No lymphadenopathy (PUNEET SOLIS) Physical Exam Physical Exam General Appearance: well developed/nourished, alert, awake Cranial Nerves: normal hearing, normal speech, PERRL Comments: Well-developed well-nourished person in no acute distress HEENT: Normal EENT exam; PERRL, EOMI, no nystagmus. HEAD is atraumatic. moist mucous membranes. Neck: Supple, no bruit, normal range of motion without pain or tenderness Back: Nontender, no CVA tenderness. Full range of motion Cardiovascular: Regular rate and rhythms no murmurs rubs or gallops, normal JVP Respiratory: Chest nontender.There were no bony deformities, no asymmetry. No respiratory distress. Patient speaking in full complete sentences. Breath sounds clear to auscultation bilaterally: NO W/R/R Abdomen: Soft, nontender nondistended, no appreciable organomegaly. Normal bowel sounds. No rebound/guarding, No appreciable enlargement of the abdominal aorta, No ascites. Extremity: No edema, full range of motion of extremities, normal and equal pulses bilaterally, 5 out of 5 strength noted to bilateral upper and lower extremities Neuro: Alert oriented x3, motor sensory normal, cranial nerves II through XII grossly intact. There were no obvious focal neurologic abnormalities. Skin: No appreciable rash on exposed skin, skin is warm and dry. Psych: Mood and affect is normal, memory and judgment is normal. Core Measures ACS in differential dx? Yes CVA/TIA Diagnosis: No Severe Sepsis Present: No Septic Shock Present: No (PUNEET SOLIS) Progress Differential Diagnosis: AMI, aortic valve, drug induced syncope, orthostatic syncope, other valvular disease, pericardial tamponade, pulmonary embolus, sick sinus syndrome, subarachnoid hem., TIA/CVA, vasodepressor syncope, GI BLEED Plan of Care: Orders Procedure Date/time Status CONTIN. POS. AIRWAY PRESS. CHG 11/04 UNK Complete Labs ordered old records reviewed patient is noted to be nor orthostatic IV fluids ordered CAT scans ordered case discussed with Dr. CARRANZA, PT IS CURRENTLY WITHOUT ANY COMPLAINTS D5 running however patient's blood pressure continues to decrease less than 50 at this time an amp of dextrose was ordered push, patient states that she only took her 8 units as well as previously prescribed. Discussed with the patient and her family at length all of her lab results CAT scan and chest x-ray findings. Need for admission which they're in agreement with Case discussed with Dr. estrella will admit (PUNEET SOLIS) Diagnostic Imaging: Viewed by Me: Radiology Read, CT Scan. Discussed w/RAD: Radiology Read, CT Scan. Radiology Impression: PATIENT: JOSELYN DUARTE PRESENT AGE: 71 PATIENT ACCOUNT NO: [id number] : 45 LOCATION: [facility] ORDERING PHYSICIAN: PUNEET NICHOLE SERVICE DATE: 11/02/16-0682 EXAM TYPE: CAT - CT HEAD WO IV CONTRAST EXAMINATION: CT HEAD WITHOUT CONTRAST CLINICAL INFORMATION: Near syncope. Head trauma. Rule out intracranial hemorrhage. COMPARISON: Head CT from 03/15/2014. TECHNIQUE: Contiguous axial imaging was performed from the skull base to vertex without intravenous administration of contrast. DLP: 617.7 mGy-cm FINDINGS: There is no evidence of acute intracranial hemorrhage or territorial infarction. No abnormal mass effect or midline shift is seen. Kyle to white matter differentiation is well preserved. No extra-axial fluid collections are identified. The ventricles are normal in size. Mild chronic white matter microangiopathic changes are again noted. The osseous structures and soft tissues are normal. The mastoid air cells are well aerated. There is moderate mucosal thickening and fluid subtotally opacifying the right sphenoid sinus. A smaller fluid level is visible in the left sphenoid sinus. IMPRESSION: No acute intracranial pathology. Mild chronic white matter microangiopathy. Moderate mucosal thickening and fluid subtotally opacifying the right sphenoid sinus with a smaller fluid level in the left sphenoid sinus. Correlate for any underlying symptoms of acute sinusitis. DICTATED BY: RICKEY DOE MD DATE/ TIME DICTATED:11/02/161510 WRITER TECHNICAL PUBLICATIONS:DEEP DATE/TIME TRANSCRIBED: 11/02/161510 CONFIDENTIAL, DO NOT COPY WITHOUT APPROPRIATE AUTHORIZATION. < Electronically signed in Other Vendor System> SIGNED BY: RICKEY DOE MD 11/02/161515, ATIENT: JOSELYN DUARTE PRESENT AGE: 71 PATIENT ACCOUNT NO: [id number] : 45 LOCATION: [facility] ORDERING PHYSICIAN: PUNEET NICHOLE SERVICE DATE: 11/02/16 EXAM TYPE: RAD - XRY- PORTABLE CHEST XRAY EXAMINATION: XR CHEST PORTABLE CLINICAL INFORMATION: Near syncope. Evaluate for cardiomegaly. COMPARISON: Multiple priors, most recent chest radiographs dated 09/04/2016. TECHNIQUE: Portable frontal view of the chest was obtained. FINDINGS: Mild bibasilar atelectasis. No focal airspace consolidation. No pleural effusion or pneumothorax. Stable cardiomediastinal silhouette. Surgical clips within the proximal right humerus, likely related to a prior rotator cuff repair. Spinal stimulator redemonstrated overlying the thoracic spine. IMPRESSION: Mild bibasilar atelectasis. DICTATED BY: MERCED STAFFORD MD DATE/TIME DICTATED:11/02/161454 WRITER TECHNICAL PUBLICATIONS:DEEP DATE/TIME TRANSCRIBED:05/29/17 / 1455 CONFIDENTIAL, DO NOT COPY WITHOUT APPROPRIATE AUTHORIZATION. <Electronically signed in Other Vendor System> SIGNED BY: MERCED STAFFORD MD 11/02/16 1502 Initial ED EKG: normal intervals, normal p-waves, normal QRS complex, normal sinus rhythm (70) Prior EKG: unchanged (07/2016) Rhythm Strip: normal sinus rhythm (PUNEET SOLIS) Departure Departure Time of Disposition: 1540 Disposition: STILL A PATIENT Condition: Stable Clinical Impression Primary Impression: Orthostatic hypotension Secondary Impressions: Chronic kidney disease, Hypoglycemia, Near syncope Referrals: KAISER CASTRO MD (PCP/Family) Departure Forms: Customer Survey General Discharge Information Admission Note Spoke With: GINGER ESTRELLA MD Documentation of Exam: Documentation of any treatments & extenuating circumstances including Concerns Regarding Discharge (functional status, medication knowledge or non-compliance, living conditions, etc.) that warrant an admission rather than observation: Trend labs, patient's blood sugar continues to drop despite being on dextrose telemetry monitoring premature discharge to be medically harmful (PUNEET SOLIS) Departure Prescriptions: Current Visit Scripts Levothyroxine Sodium (Synthroid) 0.088 MG PO DAILY AC #30 Insulin Detemir (Levemir) 20 UNITS SC AT BEDTIME 30 Days Insulin Aspart, Recombinant (Novolog Flexpen) 0 SC SI #1 Ref 1 BEFORE MEALS Blood Insulin Sugar Units <80 0 81-100 2 101-200 4 201-250 6 251-300 8 301-350 10 351-400 12 >400 Call Doctor AT BEDTIME Blood Insulin Sugar Units <80 0 81-150 3 units bedtime scale 150-200 5 units 201-250 7 units 251-300 9 units 2 units 301-350 10 units 3 units 351-400 11 units 4 units >400 12 units 5 units >400 Call Doctor Amlodipine Besylate 1 TAB PO DAILY #30 TAB Bumetanide 2 TAB PO DAILY #30 PA/IRON MINER BLASTING Co-Sign Statement Statement: ED Attending supervision documentation- x I saw and evaluated the patient. I have also reviewed all the pertinent lab results and diagnostic results. I agree with the findings and the plan of care as documented in the PA's/IRON MINER BLASTING's documentation. [] I have reviewed the ED Record and agree with the PA's/IRON MINER BLASTING's documentation. [] Additions or exceptions (if any) to the PAs/IRON MINER BLASTING's note and plan are summarized below: [] (DILLON GUTIERREZ,AYDEE) to white matter differentiation is well preserved. No extra-axial fluid collections are identified. The ventricles are normal in size. Mild chronic white matter microangiopathic changes are again noted. The osseous structures and soft tissues are normal. The mastoid air cells are well aerated. There is moderate mucosal thickening and fluid subtotally opacifying the right sphenoid sinus. A smaller fluid level is visible in the left sphenoid sinus. IMPRESSION: No acute intracranial pathology. Mild chronic white matter microangiopathy. Moderate mucosal thickening and fluid subtotally opacifying the right sphenoid sinus with a smaller fluid level in the left sphenoid sinus. Correlate for any underlying symptoms of acute sinusitis. DICTATED BY: RICKEY DOE MD DATE/ TIME DICTATED:11/02/161510 WRITER TECHNICAL PUBLICATIONS:DEEP DATE/TIME TRANSCRIBED: 11/02/161510 CONFIDENTIAL, DO NOT COPY WITHOUT APPROPRIATE AUTHORIZATION. < Electronically signed in Other Vendor System> SIGNED BY: RICKEY DOE MD 11/02/161515, ATIENT: JOSELYN DUARTE PRESENT AGE: 71 PATIENT ACCOUNT NO: [id number] : 45 LOCATION: [facility] ORDERING PHYSICIAN: PUNEET NICHOLE SERVICE DATE: 11/02/16 EXAM TYPE: RAD - XRY- PORTABLE CHEST XRAY EXAMINATION: XR CHEST PORTABLE CLINICAL INFORMATION: Near syncope. Evaluate for cardiomegaly. COMPARISON: Multiple priors, most recent chest radiographs dated 09/04/2016. TECHNIQUE: Portable frontal view of the chest was obtained. FINDINGS: Mild bibasilar atelectasis. No focal airspace consolidation. No pleural effusion or pneumothorax. Stable cardiomediastinal silhouette. Surgical clips within the proximal right humerus, likely related to a prior rotator cuff repair. Spinal stimulator redemonstrated overlying the thoracic spine. IMPRESSION: Mild bibasilar atelectasis. DICTATED BY: MERCED STAFFORD MD DATE/TIME DICTATED:11/02/161454 WRITER TECHNICAL PUBLICATIONS:DEEP DATE/TIME TRANSCRIBED:11/02/161454 CONFIDENTIAL, DO NOT COPY WITHOUT APPROPRIATE AUTHORIZATION. <Electronically signed in Other Vendor System> SIGNED BY: MERCED STAFFORD MD 11/02/16 1502 Initial ED EKG: normal intervals, normal p-waves, normal QRS complex, normal sinus rhythm (70) Prior EKG: unchanged (07/2016) Rhythm Strip: normal sinus rhythm Departure Departure Time of Disposition: 1540 Disposition: STILL A PATIENT Condition: Stable Clinical Impression Primary Impression: Orthostatic hypotension Secondary Impressions: Chronic kidney disease, Hypoglycemia, Near syncope Referrals: KAISER CASTRO MD (PCP/Family) Departure Forms: Customer Survey General Discharge Information Admission Note Spoke With: AMY GUTIERREZ,GINGER Kimball Documentation of Exam: Documentation of any treatments & extenuating circumstances including Concerns Regarding Discharge (functional status, medication knowledge or non-compliance, living conditions, etc.) that warrant an admission rather than observation: Trend labs, patient's blood sugar continues to drop despite being on dextrose telemetry monitoring premature discharge to be medically harmful
--- NOTE | 2016-11-02 14:46 | NUR ---
PT SEEN BY DIONISIO EID. ORTHOS +, IV EST AND IV BOLUS INFUSING. PT'S FSBS DECREASED FROMO 147 ON PT'S METER TO 99 ON EMS METER 10-20 MINUTES LATER TO 78 HERE; SPOUSE REPORTS FREQUENT SUDDEN DROPS. D5 STARTED AT 125 UNTIL PT ABLE TO EAT/DRINK.
--- NOTE | 2016-11-02 14:46 | NUR ---
CHRISTIE FROM HOME FOR NEAR-SYNCOPE. PT HAS HX OF DM2 ON INSULIN, HAS HAD MULTIPLE "CRASHES" IN BLOOD SUGAR LATELY, BEGAN FEELING DIZZY/NAUSEATED WHICH ARE GENERALLY SX OF HYPOGLYCERMIA. SAT ON STOOL TO CHECK BLOOD SUGAR AND SUGAR WAS 147. WHEN EMS ARRIVED THEY STOOD PT TO TRANSFER TO [facility] AND SHE BECAME VERY DIZZY, NAUSEATED, DIAPHORETIC AND NEARLY FELL. ON ARRIVAL PT AAOX3 WITH NO COMPLAINTS, NEUROS INTACT.
[2016-11-02 14:48] LABS: ABSOLUTE BASOPHIL COUNT 0 /CUMM (0.0-0.2); ABSOLUTE EOSINOPHIL COUNT 0.6 /CUMM (0.0-0.7); ABSOLUTE GRANULOCYTE CT 5.4 /CUMM (1.4-6.5); ABSOLUTE LYMPH COUNT 1.8 /CUMM (1.2-3.4); ABSOLUTE MONOCYTE COUNT 0.8 /CUMM (0.10-0.60); BASOPHIL % 0.4 % (0.0-2.0); EOSINOPHIL % 6.5 % (0-5); HEMATOCRIT 34.8 % (37-47); MEAN CORPUSCULAR HGB 26.8 PG (27.0-31.0); MEAN CORPUSCULAR HGB CONC 32.1 G/DL (33.0-37.0); MEAN CORPUSCULAR VOLUME 83.3 FL (81.0-99.0); PLATELET COUNT 220 /CUMM (130-400); RBC DISTRIBUTION WIDTH 14.4 % (11.5-14.5); RED BLOOD CELL CT 4.19 /CUMM (4.20-5.40); WHITE BLOOD CELL COUNT 8.5 /CUMM (4.8-10.8)
[2016-11-02 14:50] LABS: PT 11.5 SEC (9.4-12.5)
--- NOTE | 2016-11-02 14:54 | NUR ---
PT TO CT SCAN
--- NOTE | 2016-11-02 15:02 | RADIOLOGY REPORT ---
EXAMINATION: XR CHEST PORTABLE CLINICAL INFORMATION: Near syncope. Evaluate for cardiomegaly. COMPARISON: Multiple priors, most recent chest radiographs dated 09/04/2016. TECHNIQUE: Portable frontal view of the chest was obtained. FINDINGS: Mild bibasilar atelectasis. No focal airspace consolidation. No pleural effusion or pneumothorax. Stable cardiomediastinal silhouette. Surgical clips within the proximal right humerus, likely related to a prior rotator cuff repair. Spinal stimulator redemonstrated overlying the thoracic spine. IMPRESSION: Mild bibasilar atelectasis.
--- NOTE | 2016-11-02 15:16 | CT SCAN REPORT ---
EXAMINATION: CT HEAD WITHOUT CONTRAST CLINICAL INFORMATION: Near syncope. Head trauma. Rule out intracranial hemorrhage. COMPARISON: Head CT from 03/15/2014. TECHNIQUE: Contiguous axial imaging was performed from the skull base to vertex without intravenous administration of contrast. DLP: 617.7 mGy-cm FINDINGS: There is no evidence of acute intracranial hemorrhage or territorial infarction. No abnormal mass effect or midline shift is seen. Kyle to white matter differentiation is well preserved. No extra-axial fluid collections are identified. The ventricles are normal in size. Mild chronic white matter microangiopathic changes are again noted. The osseous structures and soft tissues are normal. The mastoid air cells are well aerated. There is moderate mucosal thickening and fluid subtotally opacifying the right sphenoid sinus. A smaller fluid level is visible in the left sphenoid sinus. IMPRESSION: No acute intracranial pathology. Mild chronic white matter microangiopathy. Moderate mucosal thickening and fluid subtotally opacifying the right sphenoid sinus with a smaller fluid level in the left sphenoid sinus. Correlate for any underlying symptoms of acute sinusitis.
--- NOTE | 2016-11-02 15:48 | NUR ---
PT STATING SHE FEELS "VERY TIRED," EASILY AROUSED TO VOICE. CONCERNED THIS IS A SIGN OF LOW BLOOD SUGAR, HAS BEEN RECIEVING D5 AT 125 FOR 1.5 HOURS. FSBS LESS THAN 50, D50 GIVEN AND RATE OF D5W DOUBLED TO 250/HR. NO OTHER COMPLAINTS, VSS, REMAINS NSR ON MONITOR WITH PVCS EVERY 5-10 BEATS.
--- NOTE | 2016-11-02 16:02 | NUR ---
REPEAT SUGAR IMPROVED, PT CLEARED FOR REG DIET, APPLE JUICE AT BEDSIDE, MEAL TRAY ORDERED.
--- NOTE | 2016-11-02 16:23 | History & Physical ---
General Information and HPI MD Statement: I have seen and personally examined JOSELYN DUARTE and documented this H&P. The patient is a 71 year old F who presented with a patient stated chief complaint of dizziness and episode of presyncope twice []. Source of Information: patient, family Exam Limitations: no limitations History of Present Illness: Patient is a 71-year-old female with past medical history significant for spinal stenosis on spinal stimulator since last 6 years, osteoarthritis, history of parathyroidectomy, hypothyroidism, diabetes, chronic kidney disease stage III, asthma, obstructive sleep apnea on nocturnal CPAP, hypertension on multiple antihypertensives, hyperlipidemia, chronic diastolic heart failure came with a chief complaint of near syncopal episode twice prior to ED arrival since morning. Patient mentioned that today around afternoon she went up and feels very funny and almost about to syncopized but fell back while sitting on couch. She thought her blood sugar were low at that point but when checked it was 78. Patient mentioned that she had the symptoms quite often lately and she decreased to units of insulin as instructed her primary. Her last admission at [facility] was in July with congestive heart failure and at that time her carvedilol was increased as well as her furosemide was changed to Bumex. Patient mentioned that she is very compliant with her medications and to call her medications this morning. She denied any dizziness with change in position, chest pain, palpitations, nausea, vomiting, any urinary or bowel complaints. She was told by her outsole beveler to limit her fluid intake but was told by her women nurse to increase fluid intake and she was balancing it by taking whenever she is thirsty. In ER her blood sugar dropped to 78 and then 51 and was given dextrose. Her vital signs were positive for orthostatics with blood pressure on standing 99/52 mmHg, sitting 121/58 and underlying it was 128/60 mmHg Allergies/Medications Allergies: Coded Allergies: povidone-iodine (From BETADINE) (RASH 10/22/15) soap (From BETADINE) (RASH 10/22/15) PARISH Inhibitors (Mild, COUGH 10/22/15) Home Med list Albuterol Sulfate (Proair Hfa) 8.5 GM HFA.AER.AD 1 PUF INH PRN ASTHMA ( Reported) Alpha Lipoic Acid 300 MG CAPSULE 1 CAP PO BID SUPPLEMENT (Reported) Amitriptyline HCl 50 MG TABLET 25 MG PO BID SHINGLES PAIN (Reported) Amlodipine Besylate 10 MG TABLET 1 TAB PO DAILY BP (Reported) Aspirin (Ecotrin*) 81 MG TABLET. 1 TAB PO DAILY HEART/BLOOD (Reported) Bumetanide 2 MG TABLET 1 TAB PO BID chf Carvedilol (Coreg) 25 MG TABLET 1 TAB PO BID HTN (Reported) Cholecalciferol (Vitamin D3) (Vitamin D3) 3,000 UNIT TABLET 1 TAB PO DAILY SUPPLEMENT (Reported) Denosumab (Prolia) 60 MG/1 ML SYRINGE 60 MG SC Q6M BONES (Reported) Duloxetine HCl (Cymbalta) 60 MG CAPSULE. 1 CAP PO DAILY BACK PAIN/DEPRESSION (Reported) Fish Oil/Borage/Flax/Om3,6,9#1 (Triple [place] Complex 3-6-9) 400 MG CAPSULE 1 CAP PO BID SUPPLEMENT (Reported) Fluticasone/Salmeterol (Advair 250-50 Diskus) 1 EACH BLST.W.DEV 1 PUF INH BID ASTHMA (Reported) Hydralazine HCl 50 MG TABLET 1 TAB PO TID BP (Reported) Insulin Aspart (Novolog) (Unknown Strength) VIAL 0 SC TIDAC DIABETES ( Reported) Blood Sugar: Insulin dose 80-150 No change 151-200 Plus 2 Units 201-250 Plus 4 Units 251-300 Plus 6 Units 301-350 Plus 8 Units 351-400 Plus 10 Units >400 Plus 12 Units Insulin Detemir (Levemir Flextouch) 100 UNIT/ML (3 ML) INSULN.PEN 66 U SC DAILY DIABETES (Reported) Insulin Detemir (Levemir Flextouch) 100 UNIT/ML (3 ML) INSULN.PEN 54 UNITS SQ DAILY DIABETES (Reported) Insulin Detemir (Levemir Flextouch) 100 UNIT/ML (3 ML) INSULN.PEN 54 UNITS SQ DAILY DIABETES (Reported) Irbesartan 300 MG TABLET 0.5 TAB PO DAILY HTN (Reported) Isosorbide Mononitrate (Isosorbide Mononitrate ER) 60 MG TAB.ER.24H 60 MG PO DAILY htn Lactobacillus Combination No.4 (Probiotic) 1 EACH CAPSULE 2 CAP PO DAILY PROBIOTIC (Reported) Levothyroxine Sodium 100 MCG TABLET 1 TAB PO DAILY AC THYROID (Reported) Levothyroxine Sodium (Levoxyl) 88 MCG TABLET 1 TAB PO DAILY AC THYROID ( Reported) Rosuvastatin Calcium (Crestor) 20 MG TABLET 1 TAB PO DAILY HYPERCHOLESTROLEMIA (Reported) Compliance With Home Meds: FAIR Past History Travel History Traveled to [place] past 21 day No Medical History Neurological: SHINGLES EENT: SLEEP APNEA Cardiovascular: CHF, hypertension Respiratory: SLEEP APNEA NOCTURNAL CPAP Gastrointestinal: NONE Hepatic: NONE Renal: CKD 3 Musculoskeletal: SPINAL STENOSIS PAIN STIMULATOR Psychiatric: NONE Endocrine: diabetes, HYPOTHYROID Blood Disorders: NONE Cancer(s): NONE RADIAL DRILL OPERATOR/Reproductive: NONE History of MRSA: No History of VRE: No History of CDIFF: No Influenza Vaccine: 04/07/16 Surgical History Surgical History: Parathyroidectomy carpal tunnel surgery trigger finger surgery Past Family/Social History Family History Relations & Conditions if any MOTHER (Diabetes mellitus, from diabetic complications). SISTER (Pancreatic cancer). Psychosocial History Where do you live? Home Who Do You Live With? spouse Services at Home: None Primary Language: Cypriot Functional Ability ADLs Independent: dressing, eating, toileting, bathing. Ambulation: cane, Patient used a cane when outside the house but ambulates independently indoors. Review of Systems Review of Systems Constitutional: Reports: weakness. Denies: chills, diaphoresis. Cardiovascular: Denies: chest pain, edema, orthopena. Respiratory: Denies: cough, hemoptysis, orthopnea. GI: Denies: bloating, constipation, diarrhea. Genitourinary: Denies: dysuria, frequency, hematuria. Musculoskeletal: Reports: back pain. Neurological/Psychological: Denies: anxiety, ataxia, cognitive dysfunction, confusion. Exam & Diagnostic Data Last 24 Hrs of Vital Signs/I&O Vital Signs Date Time Temp Pulse Resp B/P B/P Pulse O2 O2 Flow FiO2 Mean Ox Delivery Rate 11/02 1801 99.2 86 18 158/70 95 Room Air 11/02 1722 97.0 83 18 165/67 97 Room Air 11/02 1546 96.7 75 16 149/65 97 Room Air 11/02 1450 99 11/02 1400 96.2 59 16 116/58 99 Room Air Intake & Output 11/02 1600 11/02 0800 11/02 0000 Intake Total 1000 Output Total Balance 1000 Intake, IV 1000 Patient 163 lb Weight Weight Standing Scale Measurement Method Physical Exam General Appearance Alert, Oriented X3, Cooperative, No Acute Distress Cardiovascular Regular Rate, Normal S1, Normal S2, No Murmurs Lungs Normal Air Movement Abdomen Soft, No Tenderness Neurological Normal Speech, Strength at 5/5 X4 Ext, Normal Tone Extremities No Clubbing, No Cyanosis Last 24 Hrs of Labs/Jose Alejandro: Laboratory Tests 11/02/16 1432: Anion Gap 14, Estimated GFR 28 L, BUN/Creatinine Ratio 37.2 H, Glucose 51 L, Calcium 10.0, Magnesium 2.4 H, Total Bilirubin 0.7, AST 19, ALT 37, Alkaline Phosphatase 68, Troponin I < 0.01, Total Protein 8.0, Albumin 4.4, Globulin 3.6, Albumin/Globulin Ratio 1.2, PT 11.5, INR 1.10, CBC w Diff NO MAN DIFF REQ, RBC 4.19 L, MCV 83.3, MCH 26.8 L, RDW 14.4, MPV 9.0, Gran % 63.0, Lymphocytes % 21.2, Monocytes % 8.9, Eosinophils % 6.5 H, Basophils % 0.4, Absolute Granulocytes 5.4, Absolute Lymphocytes 1.8, Absolute Monocytes 0.8 H, Absolute Eosinophils 0.6, Absolute Basophils 0, PUBS MCHC 32.1 L Diagnostic Data EKG Results Normal sinus rhythm CXR Results IMPRESSION: Mild bibasilar atelectasis. Other Results No acute intracranial pathology. Mild chronic white matter microangiopathy. Moderate mucosal thickening and fluid subtotally opacifying the right sphenoid sinus with a smaller fluid level in the left sphenoid sinus. Correlate for any underlying symptoms of acute sinusitis. Assessment/Plan Assessment: Patient is a 71-year-old female with past medical history significant for spinal stenosis on spinal stimulator since last 6 years, osteoarthritis, history of parathyroidectomy, hypothyroidism, diabetes, chronic kidney disease stage III, asthma, obstructive sleep apnea on nocturnal CPAP, hypertension on multiple antihypertensives, hyperlipidemia, chronic diastolic heart failure came with a chief complaint of near syncopal episode twice prior to ED arrival since morning most likely due to hypoglycemia but at the same time her polypharmacy might playing a role as she was found to have orthostatic positive on multiple antihypertensives. We will admit patient on telemetry floor Problem list 1. Near-syncopal episode 2. History of hypertension on multiple antihypertensives 3. History of anxiety 4. History of spinal stenosis 5. History of hypothyroidism 6. History of hyperlipidemia 7. History of diastolic heart failure 8. History of insulin-dependent diabetes frequent episodes of hypoglycemia Plan 1. We will monitor her on telemetry floor 2. We will request cardiology evaluation by Dr. Palacios in a.m. of note patient was supposed to see Dr. PALACIOS this 3. We will hold her bumetanide and will restart after seen by cardiology. We will continue her carvedilol but will hold her amlodipine. We will continue her arms and hydralazine from tomorrow morning if blood pressure allows 4. We'll check orthostatics daily 5. Gentle IV hydration 6. We'll continue her levothyroxine 7. We will check blood sugars every 4 hours and will cover with NovoLog according to low dose sliding scale. We will check her blood sugar before bedtime and will decide if she needs Levemir half dose of her home dose. Will request endocrinology evaluation in a.m. 8. PT evaluation in a.m. Pharmacological DVT prophylaxis Heart healthy diet Patient is full code As Ranked By This Provider Problem List: 1. Orthostatic hypotension 2. Near syncope Core Measures/Miscellaneous Acute Coronary Syndrome ACS Diagnosis: No Cerebrovascular Accident CVA/TIA Diagnosis: No Congestive Heart Failure CHF Diagnosis: No Venous Thromboembolism VTE Risk Factors: Age > 40 [facility] prophylaxis d/t: No contraindications No VTE Pharm Prophylaxis d/t: No contraindications VTE Diagnosis: No VTE Type: NONE VTE Confirmed by (Test): NONE Severe Sepsis Severe Sepsis Present: No Septic Shock Septic Shock Present: No Miscellaneous Documentation Attending Case Discussed With: GINGER REYES MD Primary Care Physician: KAISER CASTRO MD Patient sees these Specialists Cardiology Level of Patient Care: Telemetry Resident Review Statement Resident Statement: examined this patient
--- NOTE | 2016-11-02 16:38 | NUR ---
Emergency Dept [facility] Admit Note: To be admitted to [facility] by DR REYES with SYNCOPE as the diagnosis, to TELE location. Nursing Extrusion Supervisor and admitting notified 11/02/16 at 1558 PT WILL GO TO ROOM 174-2
[2016-11-02] MEDS ORDERED: COREG25 M1 PO (16:56)
[2016-11-02] MEDS ORDERED: AMITRIPTYLINE H50 M2 PO (17:03)
[2016-11-02] MEDS ORDERED: LEVEMIR FL100 UNIT/1 SQ (17:04)
--- NOTE | 2016-11-02 17:04 | NUR ---
HOUSE STAFF AT BEDSIDE
--- NOTE | 2016-11-02 17:27 | NUR ---
REPORT CALLED TO [facility].
--- NOTE | 2016-11-02 17:44 | Admission Certification ---
Admission Certification Certification Statement - As attending physician, I certify that at the time of - admission, based on clinical presentation, severity of - symptoms, need for further diagnostic testing and - therapeutic interventions, and risk of adverse outcomes - without in-hospital treatment, in my clinical assessment, - this patient requires an acute hospital stay for a minimum - of two nights or longer. I have also considered psychsocial - factors such as support system, advanced age, financial - issues, cognitive issues, and failed out-patient treatments, - past re-admission history, safety of patient, and lack of - compliance as applicable. Specific rationale supporting this admission is: syncopal episode times 2, and orhtostatic hypotension and hypoglycemia.
--- NOTE | 2016-11-02 17:55 | PN- Att Addend ---
Attending MD Review Statement Attending Statement Attending MD Statement: examined this patient, discuss w/resident/PA/MAGNETO SPECIALIST, agreed w/resident/PA/MAGNETO SPECIALIST, discussed with family, reviewed EMR data (avail), discussed w/ nursing Attending Assessment/Plan: Laboratory Tests 11/02/16 1432: Anion Gap 14, Estimated GFR 28 L, BUN/Creatinine Ratio 37.2 H, Glucose 51 L, Calcium 10.0, Magnesium 2.4 H, Total Bilirubin 0.7, AST 19, ALT 37, Alkaline Phosphatase 68, Troponin I < 0.01, Total Protein 8.0, Albumin 4.4, Globulin 3.6, Albumin/Globulin Ratio 1.2, PT 11.5, INR 1.10, CBC w Diff NO MAN DIFF REQ, RBC 4.19 L, MCV 83.3, MCH 26.8 L, RDW 14.4, MPV 9.0, Gran % 63.0, Lymphocytes % 21.2, Monocytes % 8.9, Eosinophils % 6.5 H, Basophils % 0.4, Absolute Granulocytes 5.4, Absolute Lymphocytes 1.8, Absolute Monocytes 0.8 H, Absolute Eosinophils 0.6, Absolute Basophils 0, PUBS MCHC 32.1 L Vital Signs Date Time Temp Pulse Resp B/P B/P Pulse O2 O2 Flow FiO2 Mean Ox Delivery Rate 11/02 1722 97.0 83 18 165/67 97 Room Air 11/02 1546 96.7 75 16 149/65 97 Room Air 11/02 1450 99 11/02 1400 96.2 59 16 116/58 99 Room Air Patient seen and examined at bedside. Discussed with patient as well as patient 's family at bedside in emergency room the care plan. Patient is a 71-year-old female with past medical history of type 2 diabetes mellitus, chronic kidney disease stage III, hypothyroidism, diastolic CHF with last admission in July for CHF exacerbation when her Coreg was increased and her Lasix was changed to Bumex. Patient presented to the emergency room with 2 episodes of syncopal episodes at home and lightheadedness. Patient takes 40 units of Levemir at night and takes sliding scale NovoLog for her meals. This morning her blood sugar was around 140s and she took 8 units for breakfast. After she had the syncopal episode this morning with her falling back off the chair and losing consciousness EMS was called and they found her blood sugar to be around 78 and brought her to the emergency room. Patient in emergency room on basic electrolyte panel was found to have blood sugar of 51. Patient will also found to have orthostatic hypotension with drop her systolic blood pressure from 128 laying down to 99 on standing up. Patient was started on IV fluids and was also given D5 through IV fluids for her hypoglycemia. We will admit the patient for syncopal episode secondary to hypoglycemia and orthostatic hypotension. We will continue the D5 IV fluids and will recheck her blood sugar at night time to decide whether we give her Levemir 20 units at night or hold off Levemir altogether tonight. We will put her on low-dose sliding scale insulin once her sugars stay above 150 over the next blood sugar checks. We will do blood sugar checks every 4 hours for now till her blood sugars are stable. We will also hold her Bumex given her orthostatic hypotension.
[2016-11-02 18:01] VITALS: BP 158/70
[2016-11-02 22:24] VITALS: BP 148/64
--- NOTE | 2016-11-03 07:29 | PN- Housestaff ---
NATHALY HOLLAND 11/03/16 0728: Subjective Follow-up For: -syncope, hypoglycemia,antihypertensive Complaints: no complaints Subjective: I have seen and examiend the patient today morning. She seems to be doing good, no new complaints, feels much better. Vitals stable. No more episodes of dizziness. Review of Systems Constitutional: Reports: see HPI. Objective Last 24 Hrs of Vital Signs/I&O Vital Signs Date Time Temp Pulse Resp B/P B/P Pulse O2 O2 Flow FiO2 Mean Ox Delivery Rate 11/03 0056 71 94 11/03 0000 CPAP 11/02 2225 82 94 11/02 2224 98.8 87 18 148/64 95 Room Air 11/02 2144 87 138/50 11/02 1801 99.2 86 18 158/70 95 Room Air 11/02 1800 96 Room Air 11/02 1722 97.0 83 18 165/67 97 Room Air 11/02 1546 96.7 75 16 149/65 97 Room Air 11/02 1450 99 11/02 1400 96.2 59 16 116/58 99 Room Air Intake & Output 11/03 1600 11/03 0800 11/03 0000 Intake Total 370 Output Total 300 Balance 70 Intake, IV 20 Intake, Oral 350 Number 0 Bowel Movements Output, Urine 300 Patient 73.482 kg Weight Weight Reported by Patient Measurement Method Physical Exam General Appearance: Alert, Oriented X3, Cooperative Skin: No Rashes, No Breakdown Neck: Supple, No JVD Cardiovascular: Normal S1, Normal S2, No Murmurs Lungs: Clear to Auscultation, Normal Air Movement Abdomen: Normal Bowel Sounds, Soft, No Tenderness Current Medications: Current Medications Sig/Larissa Start time Last Medication Dose Route Stop Time Status Admin Acetaminophen 650 MG Q6P PRN 11/02 1630 AC PO Albuterol Sulfate 1 PUF Q4-6 PRN PRN 11/02 1645 AC INH Amitriptyline HCl 25 MG BID 11/02 2199 AC 11/03 PO 1037 Aspirin Buffered 81 MG DAILY 11/03 1000 AC 11/03 PO 1037 Atorvastatin Calcium 40 MG 1700 11/02 1700 AC 11/02 PO 1716 Budesonide/ 2 PUF BID 11/02 2199 AC 11/03 Formoterol Fumarate INH 1037 Carvedilol 50 MG BID 11/02 2199 DC PO Carvedilol 25 MG BID 11/02 2199 AC 11/03 PO 1037 Dextrose 25 GM ONCE ONE 11/02 1545 DC 11/02 IV 11/02 1546 1545 Dextrose/Water 1,000 ML ONCE ONE 11/02 1445 DC 11/02 IV 11/02 2244 1440 Duloxetine HCl 60 MG DAILY 11/03 1000 AC 11/03 PO 1035 Heparin Sodium 0 .STK-MED ONE 11/02 1713 DC (Porcine) .ROUTE Heparin Sodium 5,000 UNIT Q8 11/02 1625 AC 11/02 (Porcine) SC 2144 Hydralazine HCl 50 MG TID 11/03 1600 UNVr PO Insulin Aspart 0 TIDAC 11/03 0800 DC SC Insulin Aspart 0 TIDAC 11/02 1815 AC 11/03 SC 1231 Insulin Detemir 20 UNITS AT BEDTIME 11/02 2230 AC 11/02 SC 2252 Isosorbide 60 MG DAILY 11/03 1000 AC 11/03 Mononitrate PO 1037 Levothyroxine Sodium 0.1 MG QSUN 11/08 0700 CAN PO Levothyroxine Sodium 0.088 MG [id number] 11/04 0700 CAN PO Levothyroxine Sodium 0.088 MG DAILY AC 11/04 0700 AC PO Levothyroxine Sodium 0.1 MG QSUN 11/03 0800 DC PO Levothyroxine Sodium 0.088 MG DAILY AC 11/03 0700 DC PO Levothyroxine Sodium 0.1 MG DAILY AC 11/03 0700 DC PO Losartan Potassium 25 MG DAILY 11/03 1000 AC 11/03 PO 1037 Oxycodone HCl 5 MG Q6 PRN 11/02 1630 AC PO Oxycodone/ 2 TAB Q6P PRN 11/02 1630 AC Acetaminophen PO Sodium Chloride 1,000 ML BOLUS ONE 11/02 1430 DC 11/02 IV 11/02 1529 1425 Last 24 Hrs of Lab/Jose Alejandro Results Last 24 Hrs of Labs/Mics: Laboratory Tests 11/03/16 0636: Sodium Pending, Potassium Pending, Chloride Pending, Carbon Dioxide Pending, Anion Gap Pending, BUN Pending, Creatinine Pending, BUN/Creatinine Ratio Pending , CBC w Diff Pending, WBC Pending, RBC Pending, Hgb Pending, Hct Pending, MCV Pending, MCH Pending, RDW Pending, Plt Count Pending, MPV Pending, PUBS MCHC Pending 11/02/16 1432: Anion Gap 14, Estimated GFR 28 L, BUN/Creatinine Ratio 37.2 H, Glucose 51 L, Calcium 10.0, Magnesium 2.4 H, Total Bilirubin 0.7, AST 19, ALT 37, Alkaline Phosphatase 68, Troponin I < 0.01, Total Protein 8.0, Albumin 4.4, Globulin 3.6, Albumin/Globulin Ratio 1.2, PT 11.5, INR 1.10, CBC w Diff NO MAN DIFF REQ, RBC 4.19 L, MCV 83.3, MCH 26.8 L, RDW 14.4, MPV 9.0, Gran % 63.0, Lymphocytes % 21.2, Monocytes % 8.9, Eosinophils % 6.5 H, Basophils % 0.4, Absolute Granulocytes 5.4, Absolute Lymphocytes 1.8, Absolute Monocytes 0.8 H, Absolute Eosinophils 0.6, Absolute Basophils 0, PUBS MCHC 32.1 L Lines/Diet/Fluids Restraints: none Assessment/Plan Assessment: This is a 71-year-old female with past medical history of spinal stenosis on spinal stimulator since last 6 years, osteoarthritis, history of parathyroidectomy, hypothyroidism, diabetes, see Sangeeta stage III, asthma, obstructive sleep apnea and nocturnal CPAP, hypertension and multiple antihypertensive, hyperlipidemia, chronic diastolic heart failure came in with chief complaint of near syncopal episode 2 prior to arrival on 11/02/2016. She was also noted her BS to be low at 78 after the episode of dizziness.In the ER as well, she was noted to have BS of 78 and 51. She was also orthostatic positive in the ER. Relevant Labs : 9.5, 11.2/34.8. plt of 220 on presentation, Bun/creatinine - 67/ 1.8 ( baseline) EKG Was NSR. CXR : NAD Today morning vitals : stable, BP overnight : 148/64. Labs : pending. Problem list alongwith assesement and plan #1 Syncope Most likely 2/2 to dehydration v/s hypoglycemia. Ct Levemir [address] low dose novolog SS. Endocrine consult appreciated. #2 HTN Losartan 25 mg OD to start from 10 am 11/03/16 ( patient takes irbesartan 150mg daily at home) Ct Coreg 25 BID (received last night) Will restart hyrdralazine today Will decrease bumetanide to 2 mg OD and start tomorrow (11/03/16) Will amlodipine to 5 mg OD and start tomorrow. (11/03/16) Cardiology consulted appreciated. #[address] synthyroid 0.1mg qsun 88mcg mon to sat. #[address] aspirin #5 DM Levemir 20 units bedtime started. Novolog low dose SS. Last four fingerstick 155,228,228,234,156 home dosage : Patient takes 40 units of Levemir at night and takes sliding scale NovoLog for her meals ( recentyl reduced from 54 and 66) Endo to see patient today acuna further adjustment of insulin. #[address] cymbalta 60 mg OD. #[address] nocturnal cpap #[address] TRC/ nebs. DVt PX : heparin mild/mod/severe PP. FC Regular diet. Problem List: 1. Hypoglycemia 2. Near syncope 3. Orthostatic hypotension Pain Ratin Pain Location: none Pain Goal: Remain pain free Pain Plan: mild. moderate. severe PP. Tomorrow's Labs & Rationales: bep. cbc RICHIE GUTIERREZ,NILSA 11/03/16 1153: Attending MD Review Statement Attending Statement Attending MD Statement: examined this patient, discuss w/resident/PA/REGISTERED RESPIRATORY TECHNICIAN, agreed w/resident/PA/REGISTERED RESPIRATORY TECHNICIAN, discussed with family, discussed with nursing, discussed with case mgmt, reviewed images, amended to note Attending Assessment/Plan: Patient seen and examined, overall feeling better. Denies any further dizziness. Blood sugars are running in acceptable range. Blood pressure this morning was slightly high. Vital Signs Date Time Temp Pulse Resp B/P B/P Pulse O2 O2 Flow FiO2 Mean Ox Delivery Rate 11/03 1037 75 170/78 11/03 1037 98.1 75 20 170/78 11/03 1037 98.1 75 170/78 11/03 0800 98.1 69 20 154/62 95 Room Air 11/03 0056 71 94 11/03 0000 CPAP 11/02 2225 82 94 11/02 2224 98.8 87 18 148/64 95 Room Air 11/02 2144 87 138/50 11/02 1801 99.2 86 18 158/70 95 Room Air 11/02 1800 96 Room Air 11/02 1722 97.0 83 18 165/67 97 Room Air 11/02 1546 96.7 75 16 149/65 97 Room Air 11/02 1450 99 11/02 1400 96.2 59 16 116/58 99 Room Air on exam; aox3, nad. cv; s1, s2, rrr, + systolic murmur. resp; clear abd; soft, nt, bs+ ext; no edema. Laboratory Tests 11/03 11/02 0636 1432 Chemistry Sodium (137 - 145 mmol/L) 140 142 Potassium (3.5 - 5.1 mmol/L) 4.4 4.2 Chloride (98 - 107 mmol/L) 104 102 Carbon Dioxide (22 - 30 mmol/L) 26 26 Anion Gap (5 - 16) 10 14 BUN (7 - 17 mg/dL) 62 H 67 H Creatinine (0.5 - 1.0 mg/dL) 1.6 H 1.8 H Estimated GFR (>60 ml/min) 32 L 28 L BUN/Creatinine Ratio (7 - 25 %) 38.8 H 37.2 H Glucose (65 - 99 mg/dL) 51 L Calcium (8.4 - 10.2 mg/dL) 10.0 Magnesium (1.6 - 2.3 mg/dL) 2.4 H Total Bilirubin (0.2 - 1.3 mg/dL) 0.7 AST (14 - 36 U/L) 19 ALT (9 - 52 U/L) 37 Alkaline Phosphatase (<127 U/L) 68 Troponin I (< 0.11 ng/ml) < 0.01 Total Protein (6.3 - 8.2 g/dL) 8.0 Albumin (3.5 - 5.0 g/dL) 4.4 Globulin (1.9 - 4.2 gm/dL) 3.6 Albumin/Globulin Ratio (1.1 - 2.2 %) 1.2 TSH (0.270 - 4.200 uIU/mL) 0.155 L Free T4 (0.78 - 2.44 ng/dL) 1.39 Coagulation PT (9.4 - 12.5 SEC) 11.5 INR (0.90 - 1.19) 1.10 Hematology CBC w Diff NO MAN DIFF REQ NO MAN DIFF REQ WBC (4.8 - 10.8 /CUMM) 7.4 8.5 RBC (4.20 - 5.40 /CUMM) 3.38 L 4.19 L Hgb (12.0 - 16.0 G/DL) 9.1 L 11.2 L Hct (37 - 47 %) 27.9 L 34.8 L MCV (81.0 - 99.0 FL) 82.7 83.3 MCH (27.0 - 31.0 PG) 27.0 26.8 L RDW (11.5 - 14.5 %) 14.4 14.4 Plt Count (130 - 400 /CUMM) 185 220 MPV (7.4 - 10.4 FL) 9.3 9.0 Gran % (42.2 - 75.2 %) 55.2 63.0 Lymphocytes % (20.5 - 51.1 %) 26.1 21.2 Monocytes % (1.7 - 9.3 %) 10.1 H 8.9 Eosinophils % (0 - 5 %) 8.0 H 6.5 H Basophils % (0.0 - 2.0 %) 0.6 0.4 Absolute Granulocytes (1.4 - 6.5 /CUMM) 4.1 5.4 Absolute Lymphocytes (1.2 - 3.4 /CUMM) 1.9 1.8 Absolute Monocytes (0.10 - 0.60 /CUMM) 0.8 H 0.8 H Absolute Eosinophils (0.0 - 0.7 /CUMM) 0.6 0.6 Absolute Basophils (0.0 - 0.2 /CUMM) 0 0 PUBS MCHC (33.0 - 37.0 G/DL) 32.6 L 32.1 L A/P; 71-year-old female with past medical history of type 2 diabetes mellitus, chronic kidney disease stage III, hypothyroidism, ch diastolic CHF w seems like patient was on high-dose of Levemir as well as a lot of antihypertensive medications. Since she is here, her Levemir dose has been reduced in half. Ho is admitted with syncope likely 2/2 to hypoglycemia as well as hypotension. She was on large dose of Levemir as well as to many antihypertensives. Since she is here, her Levemir dose has been reduced in half. She has not received her amlodipine this morning. She has recieved her coreg, imdur, and ARB this am. Please check with Smith Mcknight who had seen pt this am about her Bumex and hydralazine. Endocrinology was consulted and her insulin will be adjusted. We'll monitor her blood sugars as well as her blood pressure for another 24 hours. Continue all other current medications. DVT px; Hep sq. If stable, likely discharge home tomorrow.
[2016-11-03 07:59] LABS: ABSOLUTE BASOPHIL COUNT 0 /CUMM (0.0-0.2); ABSOLUTE EOSINOPHIL COUNT 0.6 /CUMM (0.0-0.7); ABSOLUTE GRANULOCYTE CT 4.1 /CUMM (1.4-6.5); ABSOLUTE LYMPH COUNT 1.9 /CUMM (1.2-3.4); ABSOLUTE MONOCYTE COUNT 0.8 /CUMM (0.10-0.60); BASOPHIL % 0.6 % (0.0-2.0); GRANULOCYTE % 55.2 % (42.2-75.2); MEAN CORPUSCULAR HGB CONC 32.6 G/DL (33.0-37.0); MEAN CORPUSCULAR VOLUME 82.7 FL (81.0-99.0); MEAN PLATELET VOLUME 9.3 FL (7.4-10.4); PLATELET COUNT 185 /CUMM (130-400); RBC DISTRIBUTION WIDTH 14.4 % (11.5-14.5); RED BLOOD CELL CT 3.38 /CUMM (4.20-5.40); WHITE BLOOD CELL COUNT 7.4 /CUMM (4.8-10.8)
[2016-11-03 08:00] VITALS: BP 154/62
[2016-11-03 08:17] LABS: HEMATOCRIT 27.9 % (37-47)
--- NOTE | 2016-11-03 10:03 | Cons- Endocrinology ---
General Information and HPI Consulting Request Date of Consult: 11/03/16 Requested By: medical team Reason for Consult: evaluation and management of DM Source of Information: patient, old records Exam Limitations: no limitations History of Present Illness: Patient is a 71-year-old female with past medical history significant for spinal stenosis, osteoarthritis, history of parathyroidectomy, hypothyroidism, diabetes, chronic kidney disease stage III, asthma, obstructive sleep apnea, hypertension, hyperlipidemia, chronic diastolic heart failure came with a chief complaint of near syncopal episode twice. She was on a diet and lost 20 pounds. Her insulin was decreasesd accordingly. However, she is still on 40 units Levemir daily at bedtime and Novolog coverage before meals. In ER her blood sugar dropped to 51 and was given dextrose. In ER, she was found to have orthostatic hypotension as well. In hospital, she was put on Levemir 20 units daily and Novolog coverage before meals. Her FSGs were 78, 186, 155, 228, 234 and 156. With regards to hypothyroidism, she is on Levothyroxine 88 mcg x 6 days per week and 100 mg once a week on Wednesday. Her TSH was 0.155 and free T4 1.39. Allergies/Medications Allergies: Coded Allergies: povidone-iodine (From BETADINE) (RASH 10/22/15) soap (From BETADINE) (RASH 10/22/15) PARISH Inhibitors (Mild, COUGH 10/22/15) Home Med List: Albuterol Sulfate (Proair Hfa) 8.5 GM HFA.AER.AD 1 PUF INH PRN ASTHMA ( Reported) Alpha Lipoic Acid 300 MG CAPSULE 1 CAP PO BID SUPPLEMENT (Reported) Amitriptyline HCl 50 MG TABLET 25 MG PO BID SHINGLES PAIN (Reported) Amlodipine Besylate 10 MG TABLET 1 TAB PO DAILY BP (Reported) Aspirin (Ecotrin*) 81 MG TABLET.DR 1 TAB PO DAILY HEART/BLOOD (Reported) Bumetanide 2 MG TABLET 1 TAB PO BID chf Carvedilol (Coreg) 25 MG TABLET 1 TAB PO BID HTN (Reported) Cholecalciferol (Vitamin D3) (Vitamin D3) 3,000 UNIT TABLET 1 TAB PO DAILY SUPPLEMENT (Reported) Denosumab (Prolia) 60 MG/1 ML SYRINGE 60 MG SC Q6M BONES (Reported) Duloxetine HCl (Cymbalta) 60 MG CAPSULE.DR 1 CAP PO DAILY BACK PAIN/DEPRESSION (Reported) Fish Oil/Borage/Flax/Om3,6,9#1 (Triple Nemo Complex 3-6-9) 400 MG CAPSULE 1 CAP PO BID SUPPLEMENT (Reported) Fluticasone/Salmeterol (Advair 250-50 Diskus) 1 EACH BLST.W.DEV 1 PUF INH BID ASTHMA (Reported) Hydralazine HCl 50 MG TABLET 1 TAB PO TID BP (Reported) Insulin Aspart (Novolog) (Unknown Strength) VIAL 0 SC TIDAC DIABETES ( Reported) Blood Sugar: Insulin dose 80-150 No change 151-200 Plus 2 Units 201-250 Plus 4 Units 251-300 Plus 6 Units 301-350 Plus 8 Units 351-400 Plus 10 Units >400 Plus 12 Units Insulin Detemir (Levemir Flextouch) 100 UNIT/ML (3 ML) INSULN.PEN 66 U SC DAILY DIABETES (Reported) Insulin Detemir (Levemir Flextouch) 100 UNIT/ML (3 ML) INSULN.PEN 54 UNITS SQ DAILY DIABETES (Reported) Insulin Detemir (Levemir Flextouch) 100 UNIT/ML (3 ML) INSULN.PEN 54 UNITS SQ DAILY DIABETES (Reported) Irbesartan 300 MG TABLET 0.5 TAB PO DAILY HTN (Reported) Isosorbide Mononitrate (Isosorbide Mononitrate ER) 60 MG TAB.ER.24H 60 MG PO DAILY htn Lactobacillus Combination No.4 (Probiotic) 1 EACH CAPSULE 2 CAP PO DAILY PROBIOTIC (Reported) Levothyroxine Sodium 100 MCG TABLET 1 TAB PO DAILY AC THYROID (Reported) Levothyroxine Sodium (Levoxyl) 88 MCG TABLET 1 TAB PO DAILY AC THYROID ( Reported) Rosuvastatin Calcium (Crestor) 20 MG TABLET 1 TAB PO DAILY HYPERCHOLESTROLEMIA (Reported) Review of Systems Review of Systems Constitutional: Reports: see HPI. Cardiovascular: Reports: see HPI. Respiratory: Denies: short of breath. GI: Denies: abdominal pain. Genitourinary: Denies: dysuria. Neurological/Psychological: Reports: see HPI. Hematologic/Endocrine: Denies: polyuria, polydipsia. Past History Travel History Traveled to [place] past 21 day No Medical History Blood Transfusion Hx: Yes Neurological: SHINGLES EENT: SLEEP APNEA Cardiovascular: CHF, hypertension Respiratory: SLEEP APNEA NOCTURNAL CPAP Gastrointestinal: NONE Hepatic: NONE Renal: CKD 3 Musculoskeletal: SPINAL STENOSIS PAIN STIMULATOR Psychiatric: NONE Endocrine: diabetes, HYPOTHYROID Blood Disorders: NONE Cancer(s): NONE ASSEMBLER/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 SISTER (Pancreatic cancer). Psychosocial History Where Do You Live? Home Who Do You Live With? spouse Services at Home: None Primary Language: Eritrean Smoking Status: Never Smoked Functional Ability ADLs Independent: dressing, eating, toileting, bathing. Ambulation: cane, Patient used a cane when outside the house but ambulates independently indoors. Exam & Diagnostic Data Last 24 Hrs of Vital Signs/I&O Vital Signs Date Time Temp Pulse Resp B/P B/P Pulse O2 O2 Flow FiO2 Mean Ox Delivery Rate 11/03 1037 75 170/78 11/03 1037 98.1 75 20 170/78 11/03 1037 98.1 75 170/78 11/03 0800 98.1 69 20 154/62 95 Room Air 11/03 0056 71 94 11/03 0000 CPAP 11/02 2225 82 94 11/02 2224 98.8 87 18 148/64 95 Room Air 11/02 2144 87 138/50 11/02 1801 99.2 86 18 158/70 95 Room Air 11/02 1800 96 Room Air 11/02 1722 97.0 83 18 165/67 97 Room Air 11/02 1546 96.7 75 16 149/65 97 Room Air 11/02 1450 99 11/02 1400 96.2 59 16 116/58 99 Room Air Intake & Output 11/03 1600 11/03 0800 11/03 0000 Intake Total 100 370 Output Total 300 Balance 100 70 Intake, IV 20 Intake, Oral 100 350 Number 0 Bowel Movements Output, Urine 300 Patient 162 lb Weight Weight Reported by Patient Measurement Method Physical Exam General Appearance: no apparent distress Neck: normal inspection Respiratory: decreased breath sounds Cardiovascular: regular rate/rhythm Gastrointestinal: soft Extremities: no edema Labs/Jose Alejandro Results: Laboratory Tests 11/03 11/02 0636 1432 Chemistry Sodium (137 - 145 mmol/L) 140 142 Potassium (3.5 - 5.1 mmol/L) 4.4 4.2 Chloride (98 - 107 mmol/L) 104 102 Carbon Dioxide (22 - 30 mmol/L) 26 26 Anion Gap (5 - 16) 10 14 BUN (7 - 17 mg/dL) 62 H 67 H Creatinine (0.5 - 1.0 mg/dL) 1.6 H 1.8 H Estimated GFR (>60 ml/min) 32 L 28 L BUN/Creatinine Ratio (7 - 25 %) 38.8 H 37.2 H Glucose (65 - 99 mg/dL) 51 L Calcium (8.4 - 10.2 mg/dL) 10.0 Magnesium (1.6 - 2.3 mg/dL) 2.4 H Total Bilirubin (0.2 - 1.3 mg/dL) 0.7 AST (14 - 36 U/L) 19 ALT (9 - 52 U/L) 37 Alkaline Phosphatase (<127 U/L) 68 Troponin I (< 0.11 ng/ml) < 0.01 Total Protein (6.3 - 8.2 g/dL) 8.0 Albumin (3.5 - 5.0 g/dL) 4.4 Globulin (1.9 - 4.2 gm/dL) 3.6 Albumin/Globulin Ratio (1.1 - 2.2 %) 1.2 TSH (0.270 - 4.200 uIU/mL) 0.155 L Free T4 (0.78 - 2.44 ng/dL) 1.39 Coagulation PT (9.4 - 12.5 SEC) 11.5 INR (0.90 - 1.19) 1.10 Hematology CBC w Diff NO MAN DIFF REQ NO MAN DIFF REQ WBC (4.8 - 10.8 /CUMM) 7.4 8.5 RBC (4.20 - 5.40 /CUMM) 3.38 L 4.19 L Hgb (12.0 - 16.0 G/DL) 9.1 L 11.2 L Hct (37 - 47 %) 27.9 L 34.8 L MCV (81.0 - 99.0 FL) 82.7 83.3 MCH (27.0 - 31.0 PG) 27.0 26.8 L RDW (11.5 - 14.5 %) 14.4 14.4 Plt Count (130 - 400 /CUMM) 185 220 MPV (7.4 - 10.4 FL) 9.3 9.0 Gran % (42.2 - 75.2 %) 55.2 63.0 Lymphocytes % (20.5 - 51.1 %) 26.1 21.2 Monocytes % (1.7 - 9.3 %) 10.1 H 8.9 Eosinophils % (0 - 5 %) 8.0 H 6.5 H Basophils % (0.0 - 2.0 %) 0.6 0.4 Absolute Granulocytes (1.4 - 6.5 /CUMM) 4.1 5.4 Absolute Lymphocytes (1.2 - 3.4 /CUMM) 1.9 1.8 Absolute Monocytes (0.10 - 0.60 /CUMM) 0.8 H 0.8 H Absolute Eosinophils (0.0 - 0.7 /CUMM) 0.6 0.6 Absolute Basophils (0.0 - 0.2 /CUMM) 0 0 PUBS MCHC (33.0 - 37.0 G/DL) 32.6 L 32.1 L Assessment/Plan Assessment/Plan Patient is a 71-year-old female with past medical history significant for spinal stenosis, osteoarthritis, history of parathyroidectomy, hypothyroidism, diabetes, chronic kidney disease stage III, asthma, obstructive sleep apnea, hypertension, hyperlipidemia, chronic diastolic heart failure came with a chief complaint of near syncopal episode twice. In ER, her glucose level was 51 and she was having orthostatic hypotension. plan: 1. DM --continue Levemir 20 units daily at bedtime; --adjust Novolog coverage before meals--detail see the inpatient DM order; --add Novolog coverage at bedtime; --monitor FSGs. 2, hypothyroidism: --decrease Levothyroxine to 88 mcg daily; --repeat TFT in 4-6 weeks; 3. orthostatic hypotension --recommend checking am cortisol. will follow. Consult Acknowledgment - Thank you for your consult request.
--- NOTE | 2016-11-03 12:50 | Cons- Cardiology ---
General Information and HPI Consulting Request Date of Consult: 11/03/16 Requested By: GINGER REYES MD Reason for Consult: Presyncope Source of Information: patient Exam Limitations: no limitations History of Present Illness: 70 year old female with h/o CAD, LCX stentx2 in 2013, HTN, dyslipidemia, DM, CRI , CHF (last cath in August 2016 revealing non obstructive CAD, increased LVEDP). Patient admitted with 2 presyncopal episodes while sitting yesterday prior to having lunch. She reports having diaphoresis, dizziness. She fell backwards during 2nd episode which occured 5 min after the first one. Her sugar at home was 150. She reports having 1 episode of diarrhea that morning and 1 diarrhea in the ER without recurrence. No CP, palpitations or dyspnea. She Allergies/Medications Allergies: Coded Allergies: povidone-iodine (From BETADINE) (RASH 10/22/15) soap (From BETADINE) (RASH 10/22/15) PARISH Inhibitors (Mild, COUGH 10/22/15) Home Med List: Albuterol Sulfate (Proair Hfa) 8.5 GM HFA.AER.AD 1 PUF INH PRN ASTHMA ( Reported) Alpha Lipoic Acid 300 MG CAPSULE 1 CAP PO BID SUPPLEMENT (Reported) Amitriptyline HCl 50 MG TABLET 25 MG PO BID SHINGLES PAIN (Reported) Amlodipine Besylate 10 MG TABLET 1 TAB PO DAILY BP (Reported) Aspirin (Ecotrin*) 81 MG TABLET.DR 1 TAB PO DAILY HEART/BLOOD (Reported) Bumetanide 2 MG TABLET 1 TAB PO BID chf Carvedilol (Coreg) 25 MG TABLET 1 TAB PO BID HTN (Reported) Cholecalciferol (Vitamin D3) (Vitamin D3) 3,000 UNIT TABLET 1 TAB PO DAILY SUPPLEMENT (Reported) Denosumab (Prolia) 60 MG/1 ML SYRINGE 60 MG SC Q6M BONES (Reported) Duloxetine HCl (Cymbalta) 60 MG CAPSULE.DR 1 CAP PO DAILY BACK PAIN/DEPRESSION (Reported) Fish Oil/Borage/Flax/Om3,6,9#1 (Triple [place] Complex 3-6-9) 400 MG CAPSULE 1 CAP PO BID SUPPLEMENT (Reported) Fluticasone/Salmeterol (Advair 250-50 Diskus) 1 EACH BLST.W.DEV 1 PUF INH BID ASTHMA (Reported) Hydralazine HCl 50 MG TABLET 1 TAB PO TID BP (Reported) Insulin Aspart (Novolog) (Unknown Strength) VIAL 0 SC TIDAC DIABETES ( Reported) Blood Sugar: Insulin dose 80-150 No change 151-200 Plus 2 Units 201-250 Plus 4 Units 251-300 Plus 6 Units 301-350 Plus 8 Units 351-400 Plus 10 Units >400 Plus 12 Units Insulin Detemir (Levemir Flextouch) 100 UNIT/ML (3 ML) INSULN.PEN 66 U SC DAILY DIABETES (Reported) Insulin Detemir (Levemir Flextouch) 100 UNIT/ML (3 ML) INSULN.PEN 54 UNITS SQ DAILY DIABETES (Reported) Insulin Detemir (Levemir Flextouch) 100 UNIT/ML (3 ML) INSULN.PEN 54 UNITS SQ DAILY DIABETES (Reported) Irbesartan 300 MG TABLET 0.5 TAB PO DAILY HTN (Reported) Isosorbide Mononitrate (Isosorbide Mononitrate ER) 60 MG TAB.ER.24H 60 MG PO DAILY htn Lactobacillus Combination No.4 (Probiotic) 1 EACH CAPSULE 2 CAP PO DAILY PROBIOTIC (Reported) Levothyroxine Sodium 100 MCG TABLET 1 TAB PO DAILY AC THYROID (Reported) Levothyroxine Sodium (Levoxyl) 88 MCG TABLET 1 TAB PO DAILY AC THYROID ( Reported) Rosuvastatin Calcium (Crestor) 20 MG TABLET 1 TAB PO DAILY HYPERCHOLESTROLEMIA (Reported) Current Medications: Current Medications Sig/Larissa Start time Last Medication Dose Route Stop Time Status Admin Acetaminophen 650 MG Q6P PRN 11/02 1630 AC PO Albuterol Sulfate 1 PUF Q4-6 PRN PRN 11/02 1645 AC INH Amitriptyline HCl 25 MG BID 11/02 2199 AC 11/03 PO 1037 Aspirin Buffered 81 MG DAILY 11/03 1000 AC 11/03 PO 1037 Atorvastatin Calcium 40 MG 1700 11/02 1700 AC 11/02 PO 1716 Budesonide/ 2 PUF BID 11/02 2199 AC 11/03 Formoterol Fumarate INH 1037 Carvedilol 50 MG BID 11/02 2199 DC PO Carvedilol 25 MG BID 11/02 2199 AC 11/03 PO 1037 Dextrose 25 GM ONCE ONE 11/02 1545 DC 11/02 IV 11/02 1546 1545 Dextrose/Water 1,000 ML ONCE ONE 11/02 1445 DC 11/02 IV 11/02 2244 1440 Duloxetine HCl 60 MG DAILY 11/03 1000 AC 11/03 PO 1035 Heparin Sodium 0 .STK-MED ONE 11/02 1713 DC (Porcine) .ROUTE Heparin Sodium 5,000 UNIT Q8 11/02 1625 AC 11/02 (Porcine) SC 2144 Insulin Aspart 0 TIDAC 11/03 0800 DC SC Insulin Aspart 0 TIDAC 11/02 1815 AC 11/03 SC 1231 Insulin Detemir 20 UNITS AT BEDTIME 11/02 2230 AC 11/02 SC 2252 Isosorbide 60 MG DAILY 11/03 1000 AC 11/03 Mononitrate PO 1037 Levothyroxine Sodium 0.1 MG QSUN 11/08 0700 CAN PO Levothyroxine Sodium 0.088 MG [id number] 11/04 0700 CAN PO Levothyroxine Sodium 0.088 MG DAILY AC 11/04 0700 AC PO Levothyroxine Sodium 0.1 MG QSUN 11/03 0800 DC PO Levothyroxine Sodium 0.088 MG DAILY AC 11/03 0700 DC PO Levothyroxine Sodium 0.1 MG DAILY AC 11/03 0700 DC PO Losartan Potassium 25 MG DAILY 11/03 1000 AC 11/03 PO 1037 Oxycodone HCl 5 MG Q6 PRN 11/02 1630 AC PO Oxycodone/ 2 TAB Q6P PRN 11/02 1630 AC Acetaminophen PO Sodium Chloride 1,000 ML BOLUS ONE 11/02 1430 DC 11/02 IV 11/02 1529 1425 Review of Systems Review of Systems: 14 point ROS negative except for HPI. Past History Travel History Traveled to [place] past 21 day No Medical History Blood Transfusion Hx: Yes Neurological: SHINGLES EENT: SLEEP APNEA Cardiovascular: CHF, hypertension Respiratory: SLEEP APNEA NOCTURNAL CPAP Gastrointestinal: NONE Hepatic: NONE Renal: CKD 3 Musculoskeletal: SPINAL STENOSIS PAIN STIMULATOR Psychiatric: NONE Endocrine: diabetes, HYPOTHYROID Blood Disorders: NONE Cancer(s): NONE TONSORIAL ARTIST/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 SISTER (Pancreatic cancer). Psychosocial History Where Do You Live? Home Who Do You Live With? spouse Services at Home: None Primary Language: Thai Smoking Status: Never Smoked Functional Ability ADLs Independent: dressing, eating, toileting, bathing. Ambulation: cane, Patient used a cane when outside the house but ambulates independently indoors. Exam & Diagnostic Data Vital Signs and I&O Vital Signs Date Time Temp Pulse Resp B/P B/P Pulse O2 O2 Flow FiO2 Mean Ox Delivery Rate 11/03 1037 75 170/78 11/03 1037 98.1 75 20 170/78 11/03 1037 98.1 75 170/78 11/03 0800 98.1 69 20 154/62 95 Room Air 11/03 0056 71 94 11/03 0000 CPAP 11/02 2225 82 94 11/02 2224 98.8 87 18 148/64 95 Room Air 11/02 2144 87 138/50 11/02 1801 99.2 86 18 158/70 95 Room Air 11/02 1800 96 Room Air 11/02 1722 97.0 83 18 165/67 97 Room Air 11/02 1546 96.7 75 16 149/65 97 Room Air 11/02 1450 99 11/02 1400 96.2 59 16 116/58 99 Room Air Intake & Output 11/03 1600 11/03 0800 11/03 0000 11/02 1600 11/02 0800 11/02 0000 Intake Total 687 576 6045 Output Total 300 Balance 083 27 1219 Intake, IV 20 1000 Intake, Oral 100 350 Number 0 Bowel Movements Output, Urine 300 Patient 162 lb 163 lb Weight Weight Reported by Patient Standing Scale Measurement Method Physical Exam: HEENT-PERRLA Neck-JVP normal, no bruit Lungs-clear bilaterally Heart S1S2 regular,1/6SEM Abdomen-soft, not tender, BS+, no organomegaly Extr-no edema, 2+ pulses, no cyanosis Neuro-non focal Labs/Jose Alejandro Results: Laboratory Tests 11/03 11/02 0636 1432 Chemistry Sodium (137 - 145 mmol/L) 140 142 Potassium (3.5 - 5.1 mmol/L) 4.4 4.2 Chloride (98 - 107 mmol/L) 104 102 Carbon Dioxide (22 - 30 mmol/L) 26 26 Anion Gap (5 - 16) 10 14 BUN (7 - 17 mg/dL) 62 H 67 H Creatinine (0.5 - 1.0 mg/dL) 1.6 H 1.8 H Estimated GFR (>60 ml/min) 32 L 28 L BUN/Creatinine Ratio (7 - 25 %) 38.8 H 37.2 H Glucose (65 - 99 mg/dL) 51 L Calcium (8.4 - 10.2 mg/dL) 10.0 Magnesium (1.6 - 2.3 mg/dL) 2.4 H Total Bilirubin (0.2 - 1.3 mg/dL) 0.7 AST (14 - 36 U/L) 19 ALT (9 - 52 U/L) 37 Alkaline Phosphatase (<127 U/L) 68 Troponin I (< 0.11 ng/ml) < 0.01 Total Protein (6.3 - 8.2 g/dL) 8.0 Albumin (3.5 - 5.0 g/dL) 4.4 Globulin (1.9 - 4.2 gm/dL) 3.6 Albumin/Globulin Ratio (1.1 - 2.2 %) 1.2 TSH (0.270 - 4.200 uIU/mL) 0.155 L Free T4 (0.78 - 2.44 ng/dL) 1.39 Coagulation PT (9.4 - 12.5 SEC) 11.5 INR (0.90 - 1.19) 1.10 Hematology CBC w Diff NO MAN DIFF REQ NO MAN DIFF REQ WBC (4.8 - 10.8 /CUMM) 7.4 8.5 RBC (4.20 - 5.40 /CUMM) 3.38 L 4.19 L Hgb (12.0 - 16.0 G/DL) 9.1 L 11.2 L Hct (37 - 47 %) 27.9 L 34.8 L MCV (81.0 - 99.0 FL) 82.7 83.3 MCH (27.0 - 31.0 PG) 27.0 26.8 L RDW (11.5 - 14.5 %) 14.4 14.4 Plt Count (130 - 400 /CUMM) 185 220 MPV (7.4 - 10.4 FL) 9.3 9.0 Gran % (42.2 - 75.2 %) 55.2 63.0 Lymphocytes % (20.5 - 51.1 %) 26.1 21.2 Monocytes % (1.7 - 9.3 %) 10.1 H 8.9 Eosinophils % (0 - 5 %) 8.0 H 6.5 H Basophils % (0.0 - 2.0 %) 0.6 0.4 Absolute Granulocytes (1.4 - 6.5 /CUMM) 4.1 5.4 Absolute Lymphocytes (1.2 - 3.4 /CUMM) 1.9 1.8 Absolute Monocytes (0.10 - 0.60 /CUMM) 0.8 H 0.8 H Absolute Eosinophils (0.0 - 0.7 /CUMM) 0.6 0.6 Absolute Basophils (0.0 - 0.2 /CUMM) 0 0 PUBS MCHC (33.0 - 37.0 G/DL) 32.6 L 32.1 L Diagnostic Data EKG Results SR, stimulator artifact, no ST abnormalities Tely-no arrhytmia CXR Results Bibasilar atelectasis Other Results CT head-No acute change Assessment/Plan Assessment/Plan 70 year old female with h/o CAD, LCX stentx2 in 2013, HTN, dyslipidemia, DM, CRI , CHF presents with 2 presyncopal episodes, hypoglycemia in the ER and mild orthostasis. She had diarrhea in the morning prior to syncopal episode and mild dehydration may have contributed to orthostatsis. Low risk for arrhytmia. Plan: endocrinology recommendations as per Dr. Cardenas BP now high-continue losartan, carvedilol restart hyrdralazine today decrease bumetanide to 2 mg qd-start tomorrow decrease amlodipine to 5 mg po qd-start tomorrow if not orthostatic, she can be discharged tomorrow from cardiac standpoint f/u with me scheduled on 11/05/16 at 11 Am. Consult Acknowledgment - Thank you for your consult request.
[2016-11-03 15:30] VITALS: BP 154/62
[2016-11-04 01:13] VITALS: BP 148/64
--- NOTE | 2016-11-04 07:28 | PN- Housestaff ---
NATHALY HOLLAND 11/04/16 0728: Subjective Follow-up For: syncope, hypothyroidism Complaints: no complaints Tele-Events Since Last Visit: 1 degree block, PVC, 60 to 70 Subjective: I have seen and examined the patient today morning, she seems ot be doing good, no new complaints, no overnight tele events. Review of Systems Constitutional: Reports: see HPI. Objective Last 24 Hrs of Vital Signs/I&O Vital Signs Date Time Temp Pulse Resp B/P B/P Pulse O2 O2 Flow FiO2 Mean Ox Delivery Rate 11/04 0113 98.4 71 18 148/64 96 CPAP 11/04 0015 74 97 11/03 2246 66 97 11/03 2127 162/72 11/03 2127 162/72 11/03 1740 132/66 11/03 1530 98.6 74 16 154/62 96 Room Air 11/03 1037 75 17078 11/03 1037 98.1 75 20 170/78 11/03 1037 98.1 75 17078 11/03 0800 98.1 69 20 154/62 95 Room Air Intake & Output 11/04 0800 11/04 0000 11/03 1600 Intake Total 200 240 480 Output Total 400 Balance -200 240 480 Intake, Oral 200 240 480 Output, Urine 400 Physical Exam General Appearance: Alert, Oriented X3, Cooperative, No Acute Distress Skin: No Rashes, No Breakdown, No Significant Lesion HEENT: Atraumatic, PERRLA, EOMI Cardiovascular: Regular Rate, Normal S1, Normal S2, No Murmurs Lungs: Clear to Auscultation, Normal Air Movement Abdomen: Normal Bowel Sounds, Soft, No Tenderness Current Medications: Current Medications Sig/Larissa Start time Last Medication Dose Route Stop Time Status Admin Acetaminophen 650 MG Q6P PRN 11/02 1630 AC PO Albuterol Sulfate 1 PUF Q4-6 PRN PRN 11/02 1645 AC INH Amitriptyline HCl 25 MG BID 11/02 2199 AC 11/03 PO 212 Aspirin Buffered 81 MG DAILY 11/03 1000 AC 11/03 PO 1037 Atorvastatin Calcium 40 MG 1700 11/02 1700 AC 11/03 PO 1738 Budesonide/ 2 PUF BID 11/02 2199 AC 11/03 Formoterol Fumarate INH 2126 Carvedilol 25 MG BID 11/02 2199 AC 11/03 PO 2127 Duloxetine HCl 60 MG DAILY 11/03 1000 AC 11/03 PO 1035 Heparin Sodium 5,000 UNIT Q8 11/02 1625 AC 11/04 (Porcine) SC 0601 Hydralazine HCl 50 MG TID 11/03 1600 AC 11/03 PO 2127 Insulin Aspart 0 TIDAC/HS 11/03 2300 AC SC Insulin Aspart 0 TIDAC 11/02 1815 DC 11/03 SC 1739 Insulin Detemir 20 UNITS AT BEDTIME 11/02 2230 AC 11/03 SC 2127 Isosorbide 60 MG DAILY 11/03 1000 AC 11/03 Mononitrate PO 1037 Levothyroxine Sodium 0.1 MG QSUN 11/08 0700 CAN PO Levothyroxine Sodium 0.088 MG [id number] 11/04 0700 CAN PO Levothyroxine Sodium 0.088 MG DAILY AC 11/04 0700 AC 11/04 PO 0559 Levothyroxine Sodium 0.1 MG QSUN 11/03 0800 DC PO Levothyroxine Sodium 0.088 MG DAILY AC 11/03 0700 DC PO Levothyroxine Sodium 0.1 MG DAILY AC 11/03 0700 DC PO Losartan Potassium 25 MG DAILY 11/03 1000 AC 11/03 PO 1037 Oxycodone HCl 5 MG Q6 PRN 11/02 1630 AC PO Oxycodone/ 2 TAB Q6P PRN 11/02 1630 AC Acetaminophen PO Last 24 Hrs of Lab/Jose Alejandro Results Last 24 Hrs of Labs/Mics: Laboratory Tests 11/04/16 0605: Sodium Pending, Potassium Pending, Chloride Pending, Carbon Dioxide Pending, Anion Gap Pending, BUN Pending, Creatinine Pending, BUN/Creatinine Ratio Pending , Cortisol AM Sample Pending, CBC w Diff Pending, WBC Pending, RBC Pending, Hgb Pending, Hct Pending, MCV Pending, MCH Pending, RDW Pending, Plt Count Pending, MPV Pending, PUBS MCHC Pending Lines/Diet/Fluids Restraints: none Assessment/Plan Assessment: This is a 71-year-old female with past medical history of spinal stenosis on spinal stimulator since last 6 years, osteoarthritis, history of parathyroidectomy, hypothyroidism, diabetes, see Sangeeta stage III, asthma, obstructive sleep apnea and nocturnal CPAP, hypertension and multiple antihypertensive, hyperlipidemia, chronic diastolic heart failure came in with chief complaint of near syncopal episode 2 prior to arrival on 11/02/2016. She was also noted her BS to be low at 78 after the episode of dizziness.In the ER as well, she was noted to have BS of 78 and 51. She was also orthostatic positve in the ER. Relevant Labs : 9.5, 11.2/34.8. plt of 220 on presentation, Bun/creatinine - 67/ 1.8 ( baseline) EKG Was NSR. CXR : NAD Today morning vitals : stable, BP overnight : 148/64. Labs : pending. Problem list alongwith assesement and plan #1 Syncope most likely 2/2 to hypoglycemia v/s adverse effect of multiple antihypertensive medications causing hypotension Most likely 2/2 to dehydration v/s hypoglycemia v/s polypharmacy Restart levemir @ [address] low dose novolog SS. restart bumex at lower dose 2 mg OD. #2 HTN Losartan 25 mg OD to start from 10 am 11/03/16 ( patient takes irbesartan 150mg daily at home) Ct Coreg 25 BID (received last night) Ct amlodipine restarted at lower dosage [address] hydral[address] imdur 60 mg OD. Patient home regimen BP : Losartan 25 mg OD, amlodipine 5 mg OD , bumex 2 mg OD, imdur 60 mg OD. #3 Hypothyroidism levothyroxine changed to 88 mcg daily. #[address] aspirin #5 DM Levemir 20 units BID started. Novolog low dose SS. FS < 200 mostly. home dosage : Patient takes 40 units of Levemir at night and takes sliding scale NovoLog for her meals ( recentyl reduced from 54 and 66) patient will be discharge on above regimen. #[address] am[address]rpt[address] cymbalta 60 mg OD. #[address] nocturnal cpap #[address] TRC/ nebs. DVt PX : heparin mild/mod/severe PP. FC Regular diet. Problem List: 1. Hypoglycemia 2. Near syncope 3. Orthostatic hypotension 4. COPD exacerbation Pain Ratin Pain Location: none Pain Goal: Remain pain free Pain Plan: current plan Tomorrow's Labs & Rationales: nont needed Discharge Plan Discharge Disposition: home Stable for Discharge? Yes Anticipated Discharge (Day): today If Discharged Today/In 24 Hrs: enter [facility] discharge ord, CMR done NILSA QUIROZ MD 11/04/16 1217: Attending MD Review Statement Attending Statement Attending MD Statement: examined this patient, discuss w/resident/PA/FORK ASSEMBLER, agreed w/resident/PA/FORK ASSEMBLER, reviewed EMR data (avail), discussed with nursing, discussed with case mgmt, reviewed images, amended to note Attending Assessment/Plan: Patient seen and examined, overall feeling much better. Blood pressure was slightly high this morning. Reviewed cardiology recommendations. Patient will be resumed back on Bumex 2 mg daily as well as amlodipine 5 mg daily in addition to her rest off and evidence medications. She has been seen by endocrinology Dr. Cardenas and she is recommending keeping the patient on 20 units of Levemir. We will recheck her blood pressure this afternoon. If stable, she'll be discharged home today. She will follow with Dr. Jackman in his office tomorrow at 11 AM when she has an appointment. Patient should also follow with the primary care doctor as well as Dr. Cardenas as an outpatient.
[2016-11-04 07:52] LABS: ABSOLUTE BASOPHIL COUNT 0 /CUMM (0.0-0.2); ABSOLUTE EOSINOPHIL COUNT 0.4 /CUMM (0.0-0.7); ABSOLUTE GRANULOCYTE CT 3.3 /CUMM (1.4-6.5); ABSOLUTE LYMPH COUNT 1.8 /CUMM (1.2-3.4); ABSOLUTE MONOCYTE COUNT 0.6 /CUMM (0.10-0.60); BASOPHIL % 0.7 % (0.0-2.0); EOSINOPHIL % 7.1 % (0-5); GRANULOCYTE % 53.4 % (42.2-75.2); HEMATOCRIT 28.6 % (37-47); MEAN CORPUSCULAR HGB 27.5 PG (27.0-31.0); MEAN CORPUSCULAR HGB CONC 32.9 G/DL (33.0-37.0); MEAN CORPUSCULAR VOLUME 83.5 FL (81.0-99.0); MEAN PLATELET VOLUME 9.4 FL (7.4-10.4); RBC DISTRIBUTION WIDTH 14.1 % (11.5-14.5); RED BLOOD CELL CT 3.42 /CUMM (4.20-5.40); WHITE BLOOD CELL COUNT 6.2 /CUMM (4.8-10.8)
[2016-11-04 08:19] VITALS: BP 160/80
[2016-11-04] MEDS ORDERED: SYNTHROID88 MCG PO (08:30)
--- NOTE | 2016-11-04 08:48 | PN- Cardiology ---
Subjective Subjective: No recurrent dizziness Objective Vital Signs and I&Os Vital Signs Date Time Temp Pulse Resp B/P B/P Pulse O2 O2 Flow FiO2 Mean Ox Delivery Rate 11/04 0819 98.4 69 18 160/80 96 Room Air 11/04 0113 98.4 71 18 148/64 96 CPAP 11/04 0015 74 97 11/03 2246 66 97 11/03 2126 162/72 11/03 2127 162/72 11/03 1740 132/66 11/03 1530 98.6 74 16 154/62 96 Room Air 11/03 1037 75 170/78 11/03 1037 98.1 75 20 170/78 11/03 1037 98.1 75 170/78 Intake & Output 11/04 1600 11/04 0800 11/04 0000 11/03 1600 11/03 0800 11/03 0000 Intake Total 200 240 480 100 370 Output Total 400 300 Balance -200 240 480 100 70 Intake, IV 20 Intake, Oral 200 240 480 100 350 Number 0 Bowel Movements Output, Urine 400 300 Patient 162 lb Weight Weight Reported by Patient Measurement Method Physical Exam: Heent-PERRLA Neck-JVP normal, no bruits Lungs-clear bilaterally Heart S1S2 regular Abdomen-soft, not tender, BS+, no organomegaly Extr-no edema, 2+ pulses Neuro-non focal Current Medications: Current Medications Sig/Larissa Start time Last Medication Dose Route Stop Time Status Admin Acetaminophen 650 MG Q6P PRN 11/02 1630 AC PO Albuterol Sulfate 1 PUF Q4-6 PRN PRN 11/02 1645 AC INH Amitriptyline HCl 25 MG BID 11/020 AC 11/03 PO 2126 Aspirin Buffered 81 MG DAILY 11/03 1000 AC 11/03 PO 1037 Atorvastatin Calcium 40 MG 1700 11/02 1700 AC 11/03 PO 1738 Budesonide/ 2 PUF BID 11/02 2200 AC 11/03 Formoterol Fumarate INH 7 Carvedilol 25 MG BID 11/02 2199 AC 11/03 PO 212 Duloxetine HCl 60 MG DAILY 11/03 1000 AC 11/03 PO 1035 Heparin Sodium 5,000 UNIT Q8 11/02 1625 AC 11/04 (Porcine) SC 0601 Hydralazine HCl 50 MG TID 11/03 1600 AC 11/03 PO 2127 Insulin Aspart 0 TIDAC/HS 11/03 2300 AC 11/04 SC 0833 Insulin Aspart 0 TIDAC 11/02 1815 DC 11/03 LA 1739 Insulin Detemir 20 UNITS AT BEDTIME 11/02 2230 AC 11/03 LA 2127 Isosorbide 60 MG DAILY 11/03 1000 AC 11/03 Mononitrate PO 1037 Levothyroxine Sodium 0.1 MG QSUN 11/08 0700 CAN PO Levothyroxine Sodium 0.088 MG [id number] 11/04 0700 CAN PO Levothyroxine Sodium 0.088 MG DAILY AC 11/04 0700 AC 11/04 PO 0559 Losartan Potassium 25 MG DAILY 11/03 1000 AC 11/03 PO 1037 Oxycodone HCl 5 MG Q6 PRN 11/02 1630 AC PO Oxycodone/ 2 TAB Q6P PRN 11/02 1630 AC Acetaminophen PO Results Last 48 Hrs of Labs/Mics: Laboratory Tests 11/04/16 0605: Anion Gap 10, Estimated GFR 34 L, BUN/Creatinine Ratio 36.0 H, Cortisol AM Sample 12.3, CBC w Diff Pending, WBC Pending, RBC Pending, Hgb Pending, Hct Pending, MCV Pending, MCH Pending, RDW Pending, Plt Count Pending, MPV Pending, Gran % Pending, Lymphocytes % Pending, Monocytes % Pending, Eosinophils % Pending, Basophils % Pending, Absolute Granulocytes Pending, Absolute Lymphocytes Pending, Absolute Monocytes Pending, Absolute Eosinophils Pending, Absolute Basophils Pending, PUBS MCHC Pending 11/03/16 0636: Anion Gap 10, Estimated GFR 32 L, BUN/Creatinine Ratio 38.8 H, TSH 0.155 L, Free T4 1.39, CBC w Diff NO MAN DIFF REQ, RBC 3.38 L, MCV 82.7, MCH 27.0, RDW 14.4, MPV 9.3, Gran % 55.2, Lymphocytes % 26.1, Monocytes % 10.1 H, Eosinophils % 8.0 H, Basophils % 0.6, Absolute Granulocytes 4.1, Absolute Lymphocytes 1.9, Absolute Monocytes 0.8 H, Absolute Eosinophils 0.6, Absolute Basophils 0, PUBS MCHC 32.6 L 11/02/16 1432: Anion Gap 14, Estimated GFR 28 L, BUN/Creatinine Ratio 37.2 H, Glucose 51 L, Calcium 10.0, Magnesium 2.4 H, Total Bilirubin 0.7, AST 19, ALT 37, Alkaline Phosphatase 68, Troponin I < 0.01, Total Protein 8.0, Albumin 4.4, Globulin 3.6, Albumin/Globulin Ratio 1.2, PT 11.5, INR 1.10, CBC w Diff NO MAN DIFF REQ, RBC 4.19 L, MCV 83.3, MCH 26.8 L, RDW 14.4, MPV 9.0, Gran % 63.0, Lymphocytes % 21.2, Monocytes % 8.9, Eosinophils % 6.5 H, Basophils % 0.4, Absolute Granulocytes 5.4, Absolute Lymphocytes 1.8, Absolute Monocytes 0.8 H, Absolute Eosinophils 0.6, Absolute Basophils 0, PUBS MCHC 32.1 L Assessment/Plan Assessment/Plan 70 year old female with h/o CAD, LCX stentx2 in 2013, HTN, dyslipidemia, DM, CRI , CHF presents with 2 presyncopal episodes, hypoglycemia in the ER and mild orthostasis. She had diarrhea in the morning prior to syncopal episode and mild dehydration may have contributed to orthostatsis. Low risk for arrhytmia. Tely without significant arrhytmia. BP now high. Insulin adjusted by Dr. Cardenas. Plan: continue losartan, carvedilol, hydralazine restart amlodipine at lower dose 5 mg qd Bumetanide 2mg po qd Patient can be discharged tomorrow from cardiac standpoint f/u with me scheduled on 11/05/16 at 11 Am. Continue telemetry? No
[2016-11-04 08:53] LABS: PLATELET COUNT 182 /CUMM (130-400)
--- NOTE | 2016-11-04 10:42 | PN- Diabetes ---
Assessment/Plan Assessment: Patient is a 71-year-old female with past medical history significant for spinal stenosis, osteoarthritis, history of parathyroidectomy, hypothyroidism, diabetes, chronic kidney disease stage III, asthma, obstructive sleep apnea, hypertension, hyperlipidemia, chronic diastolic heart failure came with a chief complaint of near syncopal episode twice. In ER, her glucose level was 51 and she was having orthostatic hypotension. 1. DM --on Levemir 20 units daily at bedtime; --Novolog coverage before meals --Novolog coverage at bedtime; --her FSGs were 181, 141, 189 and 119. 2, hypothyroidism: --decreased Levothyroxine to 88 mcg daily; 3. orthostatic hypotension --am cortisol was 12.3 which is in the normal range. Plan: 1. continue the current treatment; 2. monitor FSGs 3. continue Levothyroxine 88 mcg daily. 4. If she is medically stable for discharge, the discharge plan for DM will be same insulin regimen as inpatient. 5. f/u in office after discharge. Subjective Subjective: She feels well this morning. Objective Last 24 Hrs of Vital Signs/I&O Vital Signs Date Time Temp Pulse Resp B/P B/P Pulse O2 O2 Flow FiO2 Mean Ox Delivery Rate 11/04 08 98.4 69 18 160/80 96 Room Air 11/04 0113 98.4 71 18 148/64 96 CPAP 11/04 0015 74 97 11/03 2246 66 97 11/03 2127 162/72 11/03 2127 162/72 11/03 1740 132/66 11/03 1530 98.6 74 16 154/62 96 Room Air Intake & Output 11/04 1600 11/04 0800 11/04 0000 Intake Total 200 240 Output Total 400 Balance -200 240 Intake, Oral 200 240 Output, Urine 400 Findings Pertinent Lab/Jose Alejandro Results: Laboratory Tests 11/04 06 Chemistry Sodium (137 - 145 mmol/L) 143 Potassium (3.5 - 5.1 mmol/L) 4.9 Chloride (98 - 107 mmol/L) 106 Carbon Dioxide (22 - 30 mmol/L) 27 Anion Gap (5 - 16) 10 BUN (7 - 17 mg/dL) 54 H Creatinine (0.5 - 1.0 mg/dL) 1.5 H Estimated GFR (>60 ml/min) 34 L BUN/Creatinine Ratio (7 - 25 %) 36.0 H Cortisol AM Sample (4.46 - 22.7 ug/dL) 12.3 Hematology CBC w Diff NO MAN DIFF REQ WBC (4.8 - 10.8 /CUMM) 6.2 RBC (4.20 - 5.40 /CUMM) 3.42 L Hgb (12.0 - 16.0 G/DL) 9.4 L Hct (37 - 47 %) 28.6 L MCV (81.0 - 99.0 FL) 83.5 MCH (27.0 - 31.0 PG) 27.5 RDW (11.5 - 14.5 %) 14.1 Plt Count (130 - 400 /CUMM) 182 MPV (7.4 - 10.4 FL) 9.4 Gran % (42.2 - 75.2 %) 53.4 Lymphocytes % (20.5 - 51.1 %) 29.0 Monocytes % (1.7 - 9.3 %) 9.8 H Eosinophils % (0 - 5 %) 7.1 H Basophils % (0.0 - 2.0 %) 0.7 Absolute Granulocytes (1.4 - 6.5 /CUMM) 3.3 Absolute Lymphocytes (1.2 - 3.4 /CUMM) 1.8 Absolute Monocytes (0.10 - 0.60 /CUMM) 0.6 Absolute Eosinophils (0.0 - 0.7 /CUMM) 0.4 Absolute Basophils (0.0 - 0.2 /CUMM) 0 PUBS MCHC (33.0 - 37.0 G/DL) 32.9 L
[2016-11-04 11:29] VITALS: BP 160/80
[2016-11-04] MEDS ORDERED: NOVOLOG FL100 UNIT/1 SC (11:46)
[2016-11-04] MEDS ORDERED: LEVEMIR100 UNIT/1 SC (11:46)
--- NOTE | 2016-11-04 11:52 | Patient Discharge Instructions ---
Discharge Instructions General Discharge Information You were seen/treated for: hypoglycemia,syncope and adverse effect of antihypertensvie with medication adjustment Special Instructions: Follow-up with the PCP within 1 week of discharge. Please follow up with the heart doctor upon discharge. Please follow-up with your lyric writer upon discharge. Continue taking medications as prescribed. Please note that her medications have been changed and you will need to take a medications according to the new regimen provided on discharge. Diet Continue normal diet: No Recommended Diet: Diabetic Activity Full Activity/No Limits: Yes Acute Coronary Syndrome Inclusion Criteria At DC or during hospital stay patient has or had the following: ACS DIAGNOSIS No Discharge Core Measures Meds if any: Prescribed or Continued at Discharge Meds if any: NOT Prescribed or Continued at Discharge Congestive Heart Failure Inclusion Criteria At DC or during hospital stay patient has or had the following: CHF DIAGNOSIS No Discharge Core Measures Meds if any: Prescribed or Continued at Discharge Meds if any: NOT Prescribed or Continued at Discharge Cerebrovascular accident Inclusion Criteria At DC or during hospital stay patient has or had the following: CVA/TIA Diagnosis No Discharge Core Measures Meds if any: Prescribed or Continued at Discharge Meds if any: NOT Prescribed or Continued at Discharge Venous thromboembolism Inclusion Criteria VTE Diagnosis No VTE Type NONE VTE Confirmed by (Test) NONE Discharge Core Measures - Per Current guidelines, there needs to be overlap - treatment for the first 5 days of Warfarin therapy. - If discharged on Warfarin prior to 5 days of - overlap therapy, the patient will need to be - assessed for post discharge needs including - *Post discharge parental anticoagulation - *Warfarin and/or parental anticoagulation education - *Follow up date to check INR post discharge At least 5 days overlap therapy as Inpatient No Meds if any: Prescribed or Continued at Discharge Note: Overlap Therapy is Warfarin and Anticoagulant Meds if any: NOT Prescribed or Continued at Discharge
[2016-11-04] MEDS ORDERED: BUMETANIDE1 M1 PO ×2 (11:53→14:19)
--- NOTE | 2016-11-04 11:54 | Discharge Summary ---
Hospital Course Allergies: Coded Allergies: povidone-iodine (From BETADINE) (RASH 10/22/15) soap (From BETADINE) (RASH 10/22/15) PARISH Inhibitors (Mild, COUGH 10/22/15) Discharge Instructions Medications at Discharge Discharge Medications: Stop taking the following medications: Levothyroxine Sodium (Levothyroxine Sodium) 100 MCG TABLET ORAL DAILY BEFORE BREAKFAST Levothyroxine Sodium (Levoxyl) 88 MCG TABLET ORAL DAILY BEFORE BREAKFAST Insulin Detemir (Levemir Flextouch) 100 UNIT/ML (3 ML) INSULN.PEN Inject into fatty tissue DAILY Bumetanide (Bumetanide) 2 MG TABLET ORAL TWICE DAILY Qty = 60 Insulin Detemir (Levemir Flextouch) 100 UNIT/ML (3 ML) INSULN.PEN SUB-Q DAILY Insulin Detemir (Levemir Flextouch) 100 UNIT/ML (3 ML) INSULN.PEN SUB-Q DAILY Continue taking these medications: Amlodipine Besylate (Amlodipine Besylate) 10 MG TABLET 1 Tablet ORAL DAILY Comments: GIVEN 11/04/16 @ 1130 Hydralazine HCl (Hydralazine HCl) 50 MG TABLET 1 Tablet ORAL THREE TIMES DAILY Comments: GIVEN 11/04/16 @ 1130 Duloxetine HCl (Cymbalta) 60 MG CAPSULE. 1 Capsule ORAL DAILY Comments: GIVEN 11/04/16 @ 1130 Aspirin (Ecotrin*) 81 MG TABLET.DR 1 Tablet ORAL DAILY Comments: GIVEN 11/04/16 @ 1130 Insulin Aspart (Novolog) (Unknown Strength) VIAL 0 Inject into fatty tissue 3 TIMES DAILY BEFORE MEALS Instructions: Blood Sugar: Insulin dose 80-150 No change 151-200 Plus 2 Units 201-250 Plus 4 Units 251-300 Plus 6 Units 301-350 Plus 8 Units 351-400 Plus 10 Units >400 Plus 12 Units Comments: GIVEN 11/04/16 @ 1230 Fluticasone/Salmeterol (Advair 250-50 Diskus) 1 EACH BLST.W.DEV 1 Puff Inhale through mouth TWICE DAILY Comments: GIVEN SYMBICORT IN HOSPITAL 11/04/16 @ 1130 Albuterol Sulfate (Proair Hfa) 8.5 GM HFA.AER.AD 1 Puff Inhale through mouth as needed for ASTHMA Comments: NOT GIVEN Cholecalciferol (Vitamin D3) (Vitamin D3) 3,000 UNIT TABLET 1 Tablet ORAL DAILY Comments: NOT GIVEN Denosumab (Prolia) 60 MG/1 ML SYRINGE 60 Milligram Inject into fatty tissue Q6M Comments: NOT GIVEN Alpha Lipoic Acid (Alpha Lipoic Acid) 300 MG CAPSULE 1 Capsule ORAL TWICE DAILY Comments: NOT GIVEN Lactobacillus Combination No.4 (Probiotic) 1 EACH CAPSULE 2 Capsule ORAL DAILY Comments: NOT GIVEN Fish Oil/Borage/Flax/Om3,6,9#1 (Triple [place] Complex 3-6-9) 400 MG CAPSULE 1 Capsule ORAL TWICE DAILY Comments: NOT GIVEN Isosorbide Mononitrate (Isosorbide Mononitrate ER) 60 MG TAB.ER.24H 60 Milligram ORAL DAILY Days = 30 Comments: GIVEN 11/04/16 @ 1130 Rosuvastatin Calcium (Crestor) 20 MG TABLET 1 Tablet ORAL DAILY Comments: GIVEN ATORVASTATIN IN HOSPITAL 11/03/16 @ 5:40 PM Irbesartan (Irbesartan) 300 MG TABLET 0.5 Tablet ORAL DAILY Qty = 90 Comments: GIVEN LOSARTAN IN HOSPITAL 11/04/16 @ 1130 Carvedilol (Coreg) 25 MG TABLET 1 Tablet ORAL TWICE DAILY Qty = 30 Comments: GIVEN 11/04/16 @ 1130 Amitriptyline HCl (Amitriptyline HCl) 50 MG TABLET 25 Milligram ORAL TWICE DAILY Qty = 30 Comments: GIVEN 11/04/16 @ 1130 Start taking the following new medications: Levothyroxine Sodium (Synthroid) 88 MCG TABLET 0.088 Milligram ORAL DAILY BEFORE BREAKFAST Qty = 30 No Refills Comments: GIVEN 11/04/16 @ 0600 Insulin Detemir (Levemir) 100 UNIT/ML VIAL 20 Units Inject into fatty tissue AT BEDTIME Days = 30 No Refills Comments: GIVEN 11/03/16 @ 9:30 PM Bumetanide (Bumetanide) 1 MG TABLET 1 Tablet ORAL DAILY Qty = 30 No Refills Comments: GIVEN 11/04/16 @ 1130 Insulin Aspart, Recombinant (Novolog Flexpen) 100 UNIT/ML INSULN.PEN 0 Inject into fatty tissue See Instructions Qty = 1 Refills = 1 Instructions: BEFORE MEALS Blood Insulin Sugar Units <80 0 81-100 2 101-200 4 201-250 6 251-300 8 301-350 10 351-400 12 >400 Call Doctor AT BEDTIME Blood Insulin Sugar Units <80 0 81-150 3 units bedtime scale 150-200 5 units 201-250 7 units 251-300 9 units 2 units 301-350 10 units 3 units 351-400 11 units 4 units >400 12 units 5 units >400 Call Doctor Comments: GIVEN 11/04/16 @ [id number]
--- NOTE | 2016-11-04 13:31 | Discharge Summary ---
Visit Information Visit Dates Admission Date: 11/02/16 Discharge Date: 11/04/16 Hospital Course Course Attending Physician: may bush Primary Care Physician: GLORIA GUTIERREZ,[facility] Course: This is a 71-year-old female with past medical history significant for spinal stenosis on spinal stimulator since last six years, osteoarthritis, history of parathyroidectomy, hypothyroidism, diabetes mellitus, chronic kidney disease stage III, asthma, obstructive sleep apnea on nocturnal CPAP, hypertension on multiple hypertensive medications, hyperlipidemia, chronic diastolic heart failure came in on 09 November 2016 with chief complaint of two episodes of near syncope on the morning prior to arrival to the emergency department. On the afternoon of the presentation she felt funny, she was about to have a fall, when she fell back while sitting on the couch. Her daughter did check her blood sugar was noted to be 78. On admission it was also noted that the patient had recently reduced the dosage of insulin. Vitals on presentation temperature of 99.2, pulse of 59, respiration of 16, pressure of 149/65, she was 95% saturating on room air. She did not have a white count, H/H was 11.2/34.8,platelet 220.Electrolytes within normal limits, BUN/creatinine - 67/1.8 initial set of troponin was negative.liver function tests were within normal limit. EKG showed normal sinus rhythm. Chest x-ray showed bibasilar atelectasis. CT head did not show any acute intracranial pathology, mild chronic white microangiopathy. She was admitted to the cardiac telemetry floor for continuos cardiac monitoring due to episode of syncope. Problem list along with assessment. #1 Near syncope EKG and troponin were trended and found ot be negative. The near syncope was thought to be most likely secondary to a combination of hypoglycemia and dehydration. Patient was initially supplemented with words. Levemir was continued at 20 units bedtime. Endocrinology was on board and insulin was adjusted. #2 Hypertension on multiple antihypertensives possibly contributing to near syncope causing low BP needing asjustment. Initially on presentation the patient was hypotensive therefore all antihypertensive medications were held. Patient was started on losartan 20 daily from 11/03/16, which was equivalent to her home medication of irbesartan 150 mg OD. Subsequently she was also started on Coreg 25 BID. Hydralazine 50 mg TID was started on day three. She was also taking amlodipine 5 mg daily ( reduced from home dosage of 10mg). Cardiology was on board in order to adjust the antihypertensive medications.Imdur was also continued at 60 mg OD. Therefore final medications on d/c : bumex 2 mg OD, amlodipine 5 mg OD were reduced dosage and hydralazine 5o tid, imdur 60 OD and Irbesartan 150 mg OD were continued as previous home dosage. #3 hypothyroidism. Thyroid function tests were also checked. Patient synthroid was changed to 88 g daily. Prior to admission she used to take 88 g daily from Wednesday to Wednesday and 0.1 mg on Sundays which was changed to 88 g. #4 hyperlipidemia. home medications of Lipitor and aspirin continued. #5 history of diabetes mellitus. The episode of near syncope was thought to be secondary to hypoglycemia as well. Her home dosage of 40 units of levemir at night time, was changed to 20 units. A new sliding scale was also administered as per endocrinology on discharge. She was continued on amitriptyline 25 BID and Cymbalta 60 daily. #6 obstructive sleep apnea on CPAP. Patient was encouraged to continue CPAP at night time. #7 COPD stable and TRC/Nebulisations were continued. DVT prophylaxis was provided with heparin Sc and mild moderate severe pain pathway for pain management was continued. She was Full code and regular diet was continued while in hospital. Allergies: Coded Allergies: povidone-iodine (From BETADINE) (RASH 10/22/15) soap (From BETADINE) (RASH 10/22/15) PARISH Inhibitors (Mild, COUGH 10/22/15) Significant Procedures: SERVICE DATE: 11/02/16 EXAM TYPE: CAT - CT HEAD WO IV CONTRAST EXAMINATION: CT HEAD WITHOUT CONTRAST CLINICAL INFORMATION: Near syncope. Head trauma. Rule out intracranial hemorrhage. COMPARISON: Head CT from 03/15/2014. TECHNIQUE: Contiguous axial imaging was performed from the skull base to vertex without intravenous administration of contrast. DLP: 617.7 mGy-cm FINDINGS: There is no evidence of acute intracranial hemorrhage or territorial infarction. No abnormal mass effect or midline shift is seen. Kyle to white matter differentiation is well preserved. No extra-axial fluid collections are identified. The ventricles are normal in size. Mild chronic white matter microangiopathic changes are again noted. The osseous structures and soft tissues are normal. The mastoid air cells are well aerated. There is moderate mucosal thickening and fluid subtotally opacifying the right sphenoid sinus. A smaller fluid level is visible in the left sphenoid sinus. IMPRESSION: No acute intracranial pathology. Mild chronic white matter microangiopathy. Moderate mucosal thickening and fluid subtotally opacifying the right sphenoid sinus with a smaller fluid level in the left sphenoid sinus. Correlate for any underlying symptoms of acute sinusitis. SERVICE DATE: 11/02/16 EXAM TYPE: RAD - XRY-PORTABLE CHEST XRAY EXAMINATION: XR CHEST PORTABLE CLINICAL INFORMATION: Near syncope. Evaluate for cardiomegaly. COMPARISON: Multiple priors, most recent chest radiographs dated 09/04/2016. TECHNIQUE: Portable frontal view of the chest was obtained. FINDINGS: Mild bibasilar atelectasis. No focal airspace consolidation. No pleural effusion or pneumothorax. Stable cardiomediastinal silhouette. Surgical clips within the proximal right humerus, likely related to a prior rotator cuff repair. Spinal stimulator redemonstrated overlying the thoracic spine. IMPRESSION: Mild bibasilar atelectasis. Disposition Summary Disposition Principal Diagnosis: #1 Near syncope 2/2 to medication Overdose. #2 HTN with anthypertensive medication adjustment #3 DM with Insulin adjustment #4 Hypothyroidism with antithyroid medication adjustment. Additional Diagnosis: #5 SUSIE on CPAP #6 COPD Discharge Disposition: home or self care Discharge Instructions General Discharge Information Code Status: Full Code Patient's Diet: Regular Patient's Activity: As tolerated Follow-Up Instructions/Appts: Follow-up with the PCP within 1 week of discharge. Please follow up with the heart doctor upon discharge. Please follow-up with your continuous washer operator upon discharge. Continue taking medications as prescribed. Please note that her medications have been changed and you will need to take a medications according to the new regimen provided on discharge. Medications at Discharge Discharge Medications: Stop taking the following medications: Amlodipine Besylate (Amlodipine Besylate) 10 MG TABLET ORAL DAILY Levothyroxine Sodium (Levothyroxine Sodium) 100 MCG TABLET ORAL DAILY BEFORE BREAKFAST Levothyroxine Sodium (Levoxyl) 88 MCG TABLET ORAL DAILY BEFORE BREAKFAST Insulin Detemir (Levemir Flextouch) 100 UNIT/ML (3 ML) INSULN.PEN Inject into fatty tissue DAILY Bumetanide (Bumetanide) 2 MG TABLET ORAL TWICE DAILY Qty = 60 Insulin Detemir (Levemir Flextouch) 100 UNIT/ML (3 ML) INSULN.PEN SUB-Q DAILY Insulin Detemir (Levemir Flextouch) 100 UNIT/ML (3 ML) INSULN.PEN SUB-Q DAILY Continue taking these medications: Hydralazine HCl (Hydralazine HCl) 50 MG TABLET 1 Tablet ORAL THREE TIMES DAILY Comments: GIVEN 11/04/16 @ 1130 Duloxetine HCl (Cymbalta) 60 MG CAPSULE.DR 1 Capsule ORAL DAILY Comments: GIVEN 11/04/16 @ 1130 Aspirin (Ecotrin*) 81 MG TABLET.DR 1 Tablet ORAL DAILY Comments: GIVEN 11/04/16 @ 1130 Insulin Aspart (Novolog) (Unknown Strength) VIAL 0 Inject into fatty tissue 3 TIMES DAILY BEFORE MEALS Instructions: Blood Sugar: Insulin dose 80-150 No change 151-200 Plus 2 Units 201-250 Plus 4 Units 251-300 Plus 6 Units 301-350 Plus 8 Units 351-400 Plus 10 Units >400 Plus 12 Units Comments: GIVEN 11/04/16 @ 1230 Fluticasone/Salmeterol (Advair 250-50 Diskus) 1 EACH BLST.W.DEV 1 Puff Inhale through mouth TWICE DAILY Comments: GIVEN SYMBICORT IN HOSPITAL 11/04/16 @ 1130 Albuterol Sulfate (Proair Hfa) 8.5 GM HFA.AER.AD 1 Puff Inhale through mouth as needed for ASTHMA Comments: NOT GIVEN Cholecalciferol (Vitamin D3) (Vitamin D3) 3,000 UNIT TABLET 1 Tablet ORAL DAILY Comments: NOT GIVEN Denosumab (Prolia) 60 MG/1 ML SYRINGE 60 Milligram Inject into fatty tissue Q6M Comments: NOT GIVEN Alpha Lipoic Acid (Alpha Lipoic Acid) 300 MG CAPSULE 1 Capsule ORAL TWICE DAILY Comments: NOT GIVEN Lactobacillus Combination No.4 (Probiotic) 1 EACH CAPSULE 2 Capsule ORAL DAILY Comments: NOT GIVEN Fish Oil/Borage/Flax/Om3,6,9#1 (Triple [place] Complex 3-6-9) 400 MG CAPSULE 1 Capsule ORAL TWICE DAILY Comments: NOT GIVEN Isosorbide Mononitrate (Isosorbide Mononitrate ER) 60 MG TAB.ER.24H 60 Milligram ORAL DAILY Days = 30 Comments: GIVEN 11/04/16 @ 1130 Rosuvastatin Calcium (Crestor) 20 MG TABLET 1 Tablet ORAL DAILY Comments: GIVEN ATORVASTATIN IN HOSPITAL 11/03/16 @ 5:40 PM Irbesartan (Irbesartan) 300 MG TABLET 0.5 Tablet ORAL DAILY Qty = 90 Comments: GIVEN LOSARTAN IN HOSPITAL 11/04/16 @ 1130 Carvedilol (Coreg) 25 MG TABLET 1 Tablet ORAL TWICE DAILY Qty = 30 Comments: GIVEN 11/04/16 @ 1130 Amitriptyline HCl (Amitriptyline HCl) 50 MG TABLET 25 Milligram ORAL TWICE DAILY Qty = 30 Comments: GIVEN 11/04/16 @ 1130 Start taking the following new medications: Bumetanide (Bumetanide) 1 MG TABLET 2 Tablet ORAL DAILY Qty = 30 No Refills Comments: GIVEN 11/04/16 @ 1130 Levothyroxine Sodium (Synthroid) 88 MCG TABLET 0.088 Milligram ORAL DAILY BEFORE BREAKFAST Qty = 30 No Refills Comments: GIVEN 11/04/16 @ 0600 Insulin Detemir (Levemir) 100 UNIT/ML VIAL 20 Units Inject into fatty tissue AT BEDTIME Days = 30 No Refills Comments: GIVEN 11/03/16 @ 9:30 PM Insulin Aspart, Recombinant (Novolog Flexpen) 100 UNIT/ML INSULN.PEN 0 Inject into fatty tissue See Instructions Qty = 1 Refills = 1 Instructions: BEFORE MEALS Blood Insulin Sugar Units <80 0 81-100 2 101-200 4 201-250 6 251-300 8 301-350 10 351-400 12 >400 Call Doctor AT BEDTIME Blood Insulin Sugar Units <80 0 81-150 3 units bedtime scale 150-200 5 units 201-250 7 units 251-300 9 units 2 units 301-350 10 units 3 units 351-400 11 units 4 units >400 12 units 5 units >400 Call Doctor Comments: GIVEN 11/04/16 @ 1230 Amlodipine Besylate (Amlodipine Besylate) 5 MG TABLET 1 Tablet ORAL DAILY Qty = 30 No Refills Copies To: GLORIA GUTIERREZ,[facility]; KUSUM GUTIERREZ,ERIKA; DILCIA GUTIERREZ,TITO Attending MD Review Statement Documenting Attending: RICHIE GUTIERREZ,NILSA
[2016-11-04] MEDS ORDERED: AMLODIPINE BESYL5 M1 PO (14:16)
[2016-11-27] MEDS ORDERED: PROAIR HFA8.5 GM INH (15:30)
[2016-11-27] MEDS ORDERED: LEVOTHYROXINE100 MC1 PO (15:30)
[2016-11-27] MEDS ORDERED: FERROUS SULFAT325 M3 PO (15:30)
== END 2016-11-04 13:15 | DRG 312 ==
LOC: ERH 13:54 → 1NO 15:34 → ERHI 15:34 → 1NO 15:34 → ENRESERV 16:26 → ENTRNSPT 17:24 → EDTRNSPTTYP 17:39 → EDTRNSPT 17:39 → 1NO 17:45 → CMPTRNSPT 17:53 → ENPENDDIS 11-04 11:53 → 1NO 11-04 13:15
PROVIDERS: Internal Medicine; Physician Assistant Medical; ADMIT Internal Medicine
DX: I95.2 Hypotension due to drugs (principal); I13.0 Hypertensive heart and chronic kidney disease with heart failure and stage 1 through stage 4 chronic kidney disease, or unspecified chronic kidney disease; I50.32 Chronic diastolic (congestive) heart failure; E11.42 Type 2 diabetes mellitus with diabetic polyneuropathy; T46.5X5A Adverse effect of other antihypertensive drugs, initial encounter; E11.649 Type 2 diabetes mellitus with hypoglycemia without coma; E86.0 Dehydration; N18.3 Chronic kidney disease, stage 3 (moderate); E03.9 Hypothyroidism, unspecified; J45.909 Unspecified asthma, uncomplicated; G47.33 Obstructive sleep apnea (adult) (pediatric); E78.5 Hyperlipidemia, unspecified; Z79.4 Long term (current) use of insulin
CPT/HCPCS: 1NSP; 36415; 82436; 93005; 93010; 96360; 96361; 97110-GO; 97116-GO; 97161-GP; J1644; J3490; J7060

== ENCOUNTER 2016-12-07 01:56 | Inpatient (IN) | payer OTHER ==
[~2016-12-07] VITALS: Ht 147.3 cm; Wt 77.1 kg
[~2016-12-07 01:56] MED LIST changes: +AMITRIPTYLINE H50 M2 PO; +AMLODIPINE BESYL5 M1 PO; +BUMETANIDE1 M1 PO; +FERROUS SULFAT325 M3 PO; +LEVEMIR FL100 UNIT/1 SQ; +LEVEMIR100 UNIT/1 SC; +NOVOLOG FL100 UNIT/1 SC; +SYNTHROID88 MCG PO
--- NOTE | 2016-12-07 09:34 | Operative Report ---
Operative/Inv Procedure Report Surgery Date: 12/07/16 Name of Procedure: Left total knee arthroplasty Pre-Operative Diagnosis: Left knee primary osteoarthritis Post-Operative Diagnosis: Same Estimated Blood Loss: less than 50ml Surgeon/Mold Inspector: JUAN DIEGO GUTIERREZ,Pako LANIER Anesthesia: general endotracheal tube Implants: Maria D triathlon total knee system-size 3 femur, size 3 tibia, 9 mm polyethylene insert cruciate retaining, 27 patella Drains: None Specimens: Femoral, tibial, patellar bone Microbiology: Urine Tourniquet: 53 minutes Complications: None Condition: Stable Operative Indication: Patient is a 71-year-old woman with a long history of bilateral knee pain left worse than right. She underwent treatments including conservative measures, medications activity modifications, injections. She experienced short-term relief from the conservative measures. X-rays revealed severe end-stage osteoarthritis of the medial and patellofemoral compartment. She wished to proceed with total knee arthroplasty after risks, benefits and expectations were discussed which included but were not limited to persistent knee pain, need for subsequent surgery, infection, DVT, injury to blood vessel or nerve, anesthesia risks Operative/Procedure Note Note: . Patient was brought to the operating room and transferred to the operating table. Once under appropriate anesthesia the left lower extremity was prepped and draped in standard fashion. Preoperative IV antibiotics were given prophylactically. A standard anterior incision was made after the leg was elevated exsanguinated and tourniquet was inflated. Incision was taken down sharply to the underlying retinaculum. A medial retinacular approach was used to enter the joint and extended into the quadriceps tendon. Severe end-stage degenerative changes were noted of the patellofemoral, and medial compartment as well as moderately severe degenerative changes in the lateral compartment. Osteophytes were excised. Remnants of the medial lateral meniscal tissues were excised. Remnants of the ACL excised. Retractors were placed medially and laterally. I use a drill to enter the intramedullary canal the femur for the intramedullary guide for the distal femoral cut. The cutting block was pinned in position and the cut was made with a 6 valgus orientation. The femur was incised was size 3. Size 3 cutting block was pinned in place and the 4 cuts were made while protecting the soft tissues. I then turned my attention to the tibia. I used posterior cruciate ligament retractor posteriorly and the medial and lateral retractors. PCL was recessed to balance. Remnants of the posterior horns of the medial lateral meniscal tissues were excised. Tibia was subluxed forward. The external tibial alignment guide was placed and the pins were placed for the neutral cut from medial to lateral and reproducing patient's posterior slope based on preoperative templating and intraoperative findings. The cut was made while protecting the soft tissues. I then sized the tibia to a size 3. I did a trial with a size 3 tibia size 3 femur and a 9 mm insert. I was satisfied with the soft tissue balancing medial to lateral and anterior to posterior. The knee was taken through range of motion. I then turned my attention to the patella. The patella was measured and the appropriate thickness was removed and replaced with a 27 mm patella. The 3 lug holes were drilled as medially as possible to maximize patellofemoral tracking. I then drilled my 2 lug holes for the femur marked my rotation of the tibia and then took all his rotation out of the knee. I finished preparation of the tibia with the appropriate sized tibial punch. All his rotation was removed and copious irrigation the knee followed as the cement was being mixed on the back table. The anterior chamfer bone of the femur was used to plug the distal femur to minimize postoperative hemarthrosis and swelling. Once the cement was ready was applied to the dry clean bony surfaces of the tibia. The size 3 tibia was impacted in place and excess cement was removed with curettes. Cement was applied to the dry clean bony surfaces of the femur. The size 3 femur was impacted in place and excess cement was removed with curettes. The 9 mm trial polyethylene was inserted and the knee was taken out to full extension which further pressurize the interfaces between prosthesis and bone cement and bone. Cement was applied to the dry clean bony surfaces of the patella. The size 27 patella was impacted in place and excess cement was removed with a knife. During the cement hardening process I did a periarticular pericapsular injection of a cocktail which included ropivacaine with epinephrine and Toradol for postoperative pain and inflammation management. Once the cement hardening took the knee through range of motion. Small pieces of excess cement were removed with osteotome. I was satisfied with the 9 mm insert excellent stability in full extension mid flexion and full flexion to gravity. I removed the trial polyethylene and copiously irrigated the tibial tray. I made sure there was no remaining soft tissue, bone fragments or cement fragments. The definitive 9 mm cruciate retaining polyethylene was impacted in place and the knee was taken out to full extension the locking mechanism was confirmed. I then proceeded with closure. Copious irrigation followed every level of closure. The medial retinacular approach was closed with #1 Vicryl suture in interrupted fashion. Subcutaneous tissues closed in 2 layers with 2-0 Vicryl and skin was closed with a running 3-0 Vicryl suture with the knee in flexion. Progestins were applied and patient was awakened and taken to recovery room in good condition. No intraoperative complications blood loss was less than 50 mL Discharge Disposition: PACU
[2016-12-07 14:40] VITALS: BP 166/86
--- NOTE | 2016-12-07 14:40 | NUR ---
ADMISSION NOTE: PT ARRIVED TO FLOOR WITH DISTRIBUTION ON STRETCHER A/OX3, 4L NC, SATTING 99%, 2 IV SITES INTACT, IVF RUNNING PER MD ORDER, ON Q PUMP TO LEFT ADDUCTOR CANAL RUNNING AT 12 ML/HR, SURG SITE TO LEFT KNEE WRAPPED IN PARISH DSG CDI, +CMS, +PP, ORIENTED TO ROOM, AMBULATED WITH PT, WILL CONTINUE TO MONITOR.
[2016-12-07 17:05] VITALS: BP 160/50
[2016-12-07 18:57] VITALS: BP 136/64
[2016-12-07 23:00] VITALS: BP 132/64
[2016-12-08 01:40] VITALS: BP 138/56
[2016-12-08 05:55] VITALS: BP 138/66
--- NOTE | 2016-12-08 07:51 | PN- Orthopedic ---
See Addendum Subjective Subjective: Awake, alert No complaints overngight Tolerating diet, pain well controlled at this time Has not ambulated yet Objective Vital Signs and I&Os Vital Signs Date Time Temp Pulse Resp B/P B/P Pulse O2 O2 Flow FiO2 Mean Ox Delivery Rate 12/08 0555 100.2 70 20 138/66 96 / 0140 98.4 70 20 138/56 95 / 2300 98.9 66 18 132/64 94 Nasal 0.5L Cannula 12/07 2234 66 132/64 12/07 2215 91 12/07 1857 98.8 63 18 136/64 95 Nasal 0.5L Cannula 12/07 1801 160/50 / 1800 160/50 12/07 1759 61 160/50 12/07 1705 97.7 61 20 160/50 98 Nasal 0.5L Cannula 12/07 1440 98.2 64 18 166/86 96 Nasal 4.0L Cannula Intake & Output 12/08 0800 12/08 0000 12/07 1600 12/07 0800 12/07 0000 12/06 1600 Intake Total 540 400 Output Total 600 250 Balance -600 290 400 Intake, IV 300 Intake, Oral 240 400 Number 0 Bowel Movements Output, Urine 600 250 Patient 170 lb Weight Weight Reported by Patient Measurement Method Physical Exam: T max 100.2 All other vss Urine output good in [place] General: alert and oriented times three Chest: clear anteriorly bilaterally, RRR Abd: soft, good bs Ext: warm, no edema, no calf tenderness, positive sensate BLE Wound: dressed, dry, on Q in place, ice pack in place Assessment/Plan Assessment/Plan POD 1 s/p L TKR pain management DVT ppx - coumadin per INR fu labs PT - WBAT dc planning - likely rehab 2-3 days kind[facility] [place] dc ivf Core Measures/Miscellaneous Venous Thromboembolism VTE Risk Factors: Age > 40, Surgery VTE Contraindications: No Contraindications VTE Diagnosis: No Beta Michael Is Beta Michael a Home Med? No Antibiotics Is Patient on Antibiotics? No
[2016-12-08 08:17] LABS: ABSOLUTE BASOPHIL COUNT 0.1 /CUMM (0.0-0.2); ABSOLUTE EOSINOPHIL COUNT 0.5 /CUMM (0.0-0.7); ABSOLUTE LYMPH COUNT 1.4 /CUMM (1.2-3.4); ABSOLUTE MONOCYTE COUNT 0.9 /CUMM (0.10-0.60); BASOPHIL % 0.8 % (0.0-2.0); EOSINOPHIL % 6.1 % (0-5); GRANULOCYTE % 63.4 % (42.2-75.2); HEMATOCRIT 24.3 % (37-47); MEAN CORPUSCULAR HGB 27.8 PG (27.0-31.0); MEAN CORPUSCULAR VOLUME 84.3 FL (81.0-99.0); MEAN PLATELET VOLUME 8.7 FL (7.4-10.4); PLATELET COUNT 158 /CUMM (130-400); RBC DISTRIBUTION WIDTH 14.9 % (11.5-14.5); RED BLOOD CELL CT 2.89 /CUMM (4.20-5.40); WHITE BLOOD CELL COUNT 7.9 /CUMM (4.8-10.8)
[2016-12-08 08:32] LABS: PT 11.4 SEC (9.4-12.5)
[2016-12-08 14:51] VITALS: BP 126/70
--- NOTE | 2016-12-08 16:37 | NUR ---
PATIENT'S INQUIRED ABOUT 2 VISIT WITH PT AT ABOUT 1620, WAS TOLD SHE WOULD BE SEEN AGAIN TODAY. AT 1630 PT WAS NOT AVAILABLE. PT & WERE UPSET ABOUT THIS, AND WANTED THIS NOTED.
[2016-12-08 21:55] VITALS: BP 152/58
--- NOTE | 2016-12-08 22:53 | NUR ---
RT CAME TO SEE PATIENT TO SET UP CPAP, UNABLE TO GET PATIENT PAST 90% ON 2L, IS CURRENTLY NOW ON 5L. RICHIE WINN PA INFORMED, PCXR TO BE ORDERED. PT STATED SHE HAD FELT SOB, BUT IS BETTER NOW. DOES NOT APPEAR TO BE IN DISTRESS.
--- NOTE | 2016-12-08 23:28 | RADIOLOGY REPORT ---
EXAMINATION: XR PORTABLE CHEST CLINICAL INFORMATION: Pneumonia COMPARISON: 11/02/2016 TECHNIQUE: Portable frontal view of the chest was obtained. FINDINGS: Suboptimal film. Suggest repeat. Just vascular congestion/early CHF on the right. There is a catheter tip once again overlying mid thoracic vertebrae. IMPRESSION: Suboptimal study. Early CHF cannot be excluded. Suggest repeat exam or PA and lateral films as the patient is able.
--- NOTE | 2016-12-09 03:46 | NUR ---
NURSING NOTE: PATIENTS O2 SAT 90% RR=20 ON CPAP AT THIS TIME AFTER RETURNING TO BED FROM BATHROOM. LS RONCHI THROUGH OUT, EXERTIONAL SOB NOTED. A&OX3, NO ACUTE DISTRESS, NO COMPLAINTS AT THIS TIME. RT ED MADE AWARE, AT BED SIDE EVALUATING PATIENT. WILL CONT TO MONITOR.
[2016-12-09 06:48] VITALS: BP 150/60
--- NOTE | 2016-12-09 07:30 | NUR ---
LATE ENTRY: RN RECEIVED REPORT FROM OVERNIGHT RN. PT'S O2 NEEDS INCREASED FROM YESTERDAY- PT WAS ONLY PLACED ON 1 LITER VIA NC AT APPROX 1500. PT NOW ON 5L VIA NC AND SATTING 90-93%. CXR PERFORMED LAST NIGHT- F/U IMAGING RECOMMENDED. PT NOTED W/CRACKLES. HX CHF. CONCERN FOR FLUID IN LUNGS. SURGICAL PA SANTY NOTIFIED OF ABOVE. SNO FOR F/U CXR. PENDING RESULTS OF IMAGING, LASIX LIKELY TO BE ORDERED. PT UPDATED. WILL CONT TO MONITOR.
--- NOTE | 2016-12-09 07:40 | PN- Orthopedic ---
See Addendum Subjective Subjective: POD#2 S/P LEFT TKA NO MAJOR ISSUES OVERNIGHT C/O "CRACKLES"" IN HER CHEST WHEN BREATHING NOW ON 5L NASAL O2 DENIES CP TOLERATING DIET NO BM Objective Vital Signs and I&Os Vital Signs Date Time Temp Pulse Resp B/P B/P Pulse O2 O2 Flow FiO2 Mean Ox Delivery Rate / 0648 98.0 69 20 150/60 90 Nasal 5.0L Cannula 12/09 0348 93 CPAP 5.0L / 0345 20 90 CPAP / 0000 95 CPAP / 2155 98.4 73 20 152/58 95 Nasal 2.0L Cannula 12/08 2110 73 152/58 / 2109 73 152/58 12/08 1639 Nasal 2.0L Cannula 12/08 1639 94 Nasal 2.0L Cannula 12/08 1616 68 126/70 12/08 1600 94 Nasal 1.0L Cannula 12/08 1451 98.6 68 20 126/70 94 Nasal 1.0L Cannula 12/08 1044 85 152/70 12/08 1044 85 152/70 12/08 1044 85 152/70 12/08 1043 85 152/70 12/08 1042 85 152/70 / 0800 92 Room Air Intake & Output 12/09 0800 07/ 0000 / 1600 /04 0800 / 0000 / 1600 Intake Total 500 720 575 540 400 Output Total 350 500 500 600 250 Balance 150 220 75 -600 290 400 Intake, IV 20 300 300 Intake, Oral 480 720 275 240 400 Number 0 0 0 Bowel Movements Output, Urine 350 500 500 600 250 Patient 170 lb Weight Weight Reported by Patient Measurement Method Physical Exam: CV: RRR LUNGS: DIFFUSE RHALES THROUGHOUT ABD: SOFT, +BS EXT: DRSG CHNAGED, WOUND C/D/I NO CALF TENDERNESS BILAT, SOFT DISTAL CMS INTACT Assessment/Plan Assessment/Plan ORTHO STABLE INCREASED O2 REQUIREMENTS PLAN CXR OOB PT ? HERMELINDO STILL WANT TO GO HOME AT D/C WILL REVIEW CXR AND TX OPTIONS WITH DR MERCEDES(HER GENETICS NURSE) Core Measures/Miscellaneous Venous Thromboembolism VTE Risk Factors: Age > 40, Surgery VTE Contraindications: No Contraindications VTE Diagnosis: No Beta Michael Is Beta Michael a Home Med? No Antibiotics Is Patient on Antibiotics? No
[2016-12-09 07:51] LABS: ABSOLUTE BASOPHIL COUNT 0.1 /CUMM (0.0-0.2); ABSOLUTE EOSINOPHIL COUNT 0.4 /CUMM (0.0-0.7); ABSOLUTE GRANULOCYTE CT 8.2 /CUMM (1.4-6.5); ABSOLUTE LYMPH COUNT 1.6 /CUMM (1.2-3.4); BASOPHIL % 0.6 % (0.0-2.0); EOSINOPHIL % 3.4 % (0-5); GRANULOCYTE % 72.9 % (42.2-75.2); HEMATOCRIT 24.2 % (37-47); MEAN CORPUSCULAR HGB 28.2 PG (27.0-31.0); MEAN CORPUSCULAR HGB CONC 33.6 G/DL (33.0-37.0); MEAN CORPUSCULAR VOLUME 84.1 FL (81.0-99.0); MEAN PLATELET VOLUME 8.4 FL (7.4-10.4); PLATELET COUNT 160 /CUMM (130-400); RBC DISTRIBUTION WIDTH 14.8 % (11.5-14.5); RED BLOOD CELL CT 2.88 /CUMM (4.20-5.40); WHITE BLOOD CELL COUNT 11.2 /CUMM (4.8-10.8)
--- NOTE | 2016-12-09 08:12 | Patient Discharge Instructions ---
Discharge Instructions General Discharge Information You were seen/treated for: PRIMARY RIGHT KNEE ARTHROPLASTY ACUTE KIDNEY INJURY POST OPERTIVE ANEMIA HEART FAILURE WITH PRESERVED EJECTION FRACTION ASPIRATION PNEUMONIA You had these procedures: [facility] TOTAL KNEE ARTHROPLASTY Watch for these problems: TEMP>101.5, INCREASED WOUND DRAINAGE/REDNESS, INCRESED PAIN WITH AMBULATION Call Surgeon to remove: [place] No bath, but you may shower: Yes Other wound care: KEEP WOUND C/BETO AND DRY Special Instructions: #1. PLEASE follow up with orthopedic doctor within 2 weeks of discharge #2 please follow-up with your protection agent Dr. Mtz within 1 week of discharge #3 please follow-up with your PCP within 1 week of discharge #4 Please have INR checked once a day while on coumdatin. Target INR level between 2-3. Call your PCP immediately if you have any bleeding from your nose, mouth, urine or stool #5 you have an intake appointment at [facility] psychiatric services on December 22 at 3:15 PM with Angela Whalen LCSW at [address] [place]. Please call [phone] Diet Continue normal diet: Yes Activity Full Activity/No Limits: No (PER ORTHO RECOMMENDATION) Activity Limited to: Weight bear as tolerated Other activity limits: NO STRENUOUS ACTIVITY Acute Coronary Syndrome Inclusion Criteria At DC or during hospital stay patient has or had the following: ACS DIAGNOSIS No Discharge Core Measures Meds if any: Prescribed or Continued at Discharge Meds if any: NOT Prescribed or Continued at Discharge Congestive Heart Failure Inclusion Criteria At DC or during hospital stay patient has or had the following: CHF DIAGNOSIS Yes Discharge Core Measures Meds if any: Prescribed or Continued at Discharge PARISH/ARB for EF <40% No Meds if any: NOT Prescribed or Continued at Discharge No PARISH/ARB d/t Renal Failure/Azotemia Cerebrovascular accident Inclusion Criteria At DC or during hospital stay patient has or had the following: CVA/TIA Diagnosis No Discharge Core Measures Meds if any: Prescribed or Continued at Discharge Meds if any: NOT Prescribed or Continued at Discharge No Anticoagulant d/t Warfarin therapy started Venous thromboembolism Inclusion Criteria VTE Diagnosis No VTE Type NONE VTE Confirmed by (Test) NONE Discharge Core Measures - Per Current guidelines, there needs to be overlap - treatment for the first 5 days of Warfarin therapy. - If discharged on Warfarin prior to 5 days of - overlap therapy, the patient will need to be - assessed for post discharge needs including - *Post discharge parental anticoagulation - *Warfarin and/or parental anticoagulation education - *Follow up date to check INR post discharge At least 5 days overlap therapy as Inpatient No Meds if any: Prescribed or Continued at Discharge Warfarin Yes Overlap Therapy No Note: Overlap Therapy is Warfarin and Anticoagulant Meds if any: NOT Prescribed or Continued at Discharge
[2016-12-09 08:39] LABS: PT 13.8 SEC (9.4-12.5)
--- NOTE | 2016-12-09 09:49 | RADIOLOGY REPORT ---
EXAMINATION: XR CHEST CLINICAL INFORMATION: Increased oxygen requirement COMPARISON: Chest x-ray from 12/08/2016. TECHNIQUE: Frontal and lateral films of the chest FINDINGS: There is mild cardiomegaly which is unchanged. There is a spinal stimulator catheter with the tip positioned at the level of the T6 vertebra, unchanged. There is diffuse alveolar pulmonary edema which has increased since the previous examination. There is some increasing focal opacity at the left lung base and in the superior segment of the right lower lobe which could represent areas of developing atelectasis or pneumonia. There is a small left pleural effusion. There is no pneumothorax. No acute bony abnormality is seen. IMPRESSION: Increased diffuse marrow edema in both lungs since the most recent prior study. Increasing focal opacities in the left lung base and superior segment of the right lower lobe may indicate some developing areas of atelectasis or pneumonia. Small left pleural effusion.
--- NOTE | 2016-12-09 10:37 | RADIOLOGY REPORT ---
EXAMINATION: XR KNEE, LEFT CLINICAL INFORMATION: Left total knee arthroplasty COMPARISON: 07/01/2016 TECHNIQUE: AP and lateral views of the left knee were obtained. FINDINGS: The components of the total knee arthroplasty are in their expected positions and there is anatomic alignment at the patellofemoral and tibiofemoral compartments. No acute periprosthetic fracture. Postoperative soft tissue swelling, soft tissue emphysema and knee joint effusion. IMPRESSION: Satisfactory position and alignment of components of the total knee arthroplasty.
--- NOTE | 2016-12-09 12:45 | NUR ---
LATE ENTRY: PT GIVEN 40 MG OF IV LASIX PER PA ORDERS. PT ALSO SEEN BY RESPIRATORY THERAPIST GEMMA EARLIER- O2 SAT NOW 94-96% ON 60% PARTIAL REBREATHER. PT'S BREATHING NOTED WITH IMPROVEMENT POST ADMINISTRATION OF LASIX AND WITH USE OF REBREATHER MASK. PT ALSO ASSESSED BY PULMONARY MD- DR. STEARNS. MOD SETVE ALSO UP TO SEE PT. SEE ORDERS TO TRANSFER PT TO TELE. DR. PALACIOS (PT'S LAN SUPPORT SPECIALIST) TO ASSESS PT SOMETIME TODAY PER MOD REPORT. COOKIE MIXER HELPER NOTIFIED. BORDERER KARMA MADE AWARE. PENDING ROOM #. PT INFORMED. SAFETY MAINTAINED. RN TO CONT TO MONITOR UNTIL PT TRANSFERRED DOWN TO TELE.
--- NOTE | 2016-12-09 12:51 | Cons- Medical ---
STEVE BARAHONA 12/09/16 1231: General Information and HPI Consulting Request Date of Consult: 12/09/16 Requested By: JUAN DIEGO GUTIERREZ,YANNICK Reason for Consult: Acute respiratory distress Source of Information: patient, family Exam Limitations: no limitations, unable to give history History of Present Illness: Patient is a 71-year-old woman with past medical history significant for coronary artery disease status post 2 stents LAD in 2013, history of hypertension hyperlipidemia, history of diabetes, history of CHF and history of recent catheterization in August 2016 revealing nonobstructive hernia artery disease with increased left ventricular and diastolic pressures, history of spinal stenosis on spinal stimulator since last 6 years, osteoarthritis, history of parathyroidectomy, hypothyroidism, diabetes, chronic kidney disease stage III , asthma, obstructive sleep apnea on nocturnal CPAP, was admitted under surgical service for total left knee arthroplasty. Patient tolerated the procedure well, apparently postoperatively patient received a lot of IV hydration. Initially she was on room air yesterday at around 3 PM yesterday she was put on week 1 L during the night oxygen requirement increased to 5 L. In the morning stat chest x-ray was done that showed evolving bilateral pulmonary edema, she was put on 60% partial rebreather mask and was given 20 of IV Lasix twice. At the time of evaluation patient denied any chest discomfort or palpitations, she still appeared dyspneic. Other review of system was negative. Allergies/Medications Allergies: Coded Allergies: povidone-iodine (From BETADINE) (RASH 12/04/16) ITCH PER ANTIBIOTIC ORDER SHEET OF 12/04/16 (SJS) soap (From BETADINE) (RASH 10/22/15) PARISH Inhibitors (Mild, COUGH 10/22/15) Home Med List: Albuterol Sulfate (Proair Hfa) 90 MCG HFA.AER.AD 2 PUF INH Q4-6 PRN PRN ASTHMA (Reported) Amlodipine Besylate 5 MG TABLET 1 TAB PO DAILY htn Aspirin (Ecotrin*) 81 MG TABLET.DR 1 TAB PO DAILY HEART/BLOOD (Reported) Bumetanide 1 MG TABLET 2 TAB PO DAILY waterpill Carvedilol (Coreg) 25 MG TABLET 1 TAB PO BID HTN (Reported) Denosumab (Prolia) 60 MG/1 ML SYRINGE 60 MG SC Q6M BONES (Reported) Duloxetine HCl (Cymbalta) 60 MG CAPSULE.DR 1 CAP PO DAILY BACK PAIN/DEPRESSION (Reported) Ferrous Sulfate 325 MG (65 MG IRON) TABLET 1 TAB PO DAILY PRE OLP (Reported) Fluticasone/Salmeterol (Advair 250-50 Diskus) 1 EACH BLST.W.DEV 1 PUF INH BID ASTHMA (Reported) Hydralazine HCl 50 MG TABLET 1 TAB PO TID BP (Reported) Insulin Aspart (Novolog) (Unknown Strength) VIAL 0 SC TIDAC DIABETES ( Reported) Blood Sugar: Insulin dose 80-150 No change 151-200 Plus 2 Units 201-250 Plus 4 Units 251-300 Plus 6 Units 301-350 Plus 8 Units 351-400 Plus 10 Units >400 Plus 12 Units Insulin Aspart, Recombinant (Novolog Flexpen) 100 UNIT/ML INSULN.PEN 0 SC SI diabetes BEFORE MEALS Blood Insulin Sugar Units <80 0 81-100 2 101-200 4 201-250 6 251-300 8 301-350 10 351-400 12 >400 Call Doctor AT BEDTIME Blood Insulin Sugar Units <80 0 81-150 3 units bedtime scale 150-200 5 units 201-250 7 units 251-300 9 units 2 units 301-350 10 units 3 units 351-400 11 units 4 units >400 12 units 5 units >400 Call Doctor Insulin Detemir (Levemir) 100 UNIT/ML VIAL 20 UNITS SC AT BEDTIME diabetes Irbesartan 300 MG TABLET 0.5 TAB PO DAILY HTN (Reported) Isosorbide Mononitrate (Isosorbide Mononitrate ER) 60 MG TAB.ER.24H 60 MG PO DAILY htn Levothyroxine Sodium 100 MCG TABLET 1 TAB PO DAILY HYPOTHYROID (Reported) Rosuvastatin Calcium (Crestor) 20 MG TABLET 1 TAB PO DAILY HYPERCHOLESTROLEMIA (Reported) Review of Systems Review of Systems Constitutional: Denies: chills, diaphoresis, fever. EENTM: Denies: blurred vision, double vision, visual changes. Cardiovascular: Denies: chest pain, edema, orthopena. Respiratory: Reports: short of breath. GI: Denies: abdominal pain, bloating, constipation, diarrhea. Genitourinary: Denies: dysuria, frequency, hematuria. Musculoskeletal: Denies: back pain, gout, joint pain. Skin: Denies: change in skin color, change in hair/nails, erythema. Neurological/Psychological: Denies: ataxia, cognitive dysfunction, dementia. Hematologic/Endocrine: Denies: bruising, bleeding. Past History Medical History Blood Transfusion Hx: No Neurological: vertigo EENT: SLEEP APNEA Cardiovascular: CHF, hypertension Respiratory: asthma, SLEEP APNEA NOCTURNAL CPAP Gastrointestinal: NONE Hepatic: NONE Renal: CKD 3 Musculoskeletal: SPINAL STENOSIS PAIN STIMULATOR Psychiatric: depression Endocrine: diabetes, HYPOTHYROID Blood Disorders: anemia Cancer(s): NONE PATTERN ROOM ATTENDANT/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 SISTER (Pancreatic cancer). Psychosocial History Where Do You Live? Home Who Do You Live With? spouse Services at Home: None Primary Language: Telugu Smoking Status: Never Smoked Functional Ability ADLs Independent: dressing, eating, toileting, bathing. Ambulation: cane, Patient used a cane when outside the house but ambulates independently indoors. Exam & Diagnostic Data Last 24 Hrs of Vital Signs/I&O Vital Signs Date Time Temp Pulse Resp B/P B/P Pulse O2 O2 Flow FiO2 Mean Ox Delivery Rate 12/09 1015 95 Part 60% ReBreather 12/09 0953 75 172/62 12/09 0953 75 172/62 12/09 0953 75 172/62 12/09 0952 75 172/62 12/09 0949 75 172/62 12/09 0800 90 Nasal 5.0L Cannula 12/09 0648 98.0 69 20 150/60 90 Nasal 5.0L Cannula 12/09 0348 93 CPAP 5.0L 12/09 0345 20 90 CPAP 07/ 0000 95 CPAP 12/08 2155 98.4 73 20 152/58 95 Nasal 2.0L Cannula 12/08 2110 73 152/58 12/08 2109 73 152/58 12/08 1639 Nasal 2.0L Cannula 12/08 1639 94 Nasal 2.0L Cannula 12/08 1616 68 126/70 07/04 1600 94 Nasal 1.0L Cannula 12/08 1451 98.6 68 20 126/70 94 Nasal 1.0L Cannula Intake & Output 07/05 1600 07/05 0800 07/05 0000 Intake Total 500 720 Output Total 350 500 Balance 150 220 Intake, IV 20 Intake, Oral 480 720 Number 0 Bowel Movements Output, Urine 350 500 Physical Exam General Appearance: well developed/nourished, mild distress Head: atraumatic, normal appearance Eyes: Bilateral: normal appearance, PERRL. Ears, Nose, Throat: normal pharynx, normal ENT inspection Neck: normal inspection, supple Respiratory: crackles Cardiovascular: regular rate/rhythm, edema, gallop Gastrointestinal: soft, non-tender Assessment/Plan Assessment/Plan Patient is a 71-year-old woman with past medical history significant for coronary artery disease status post 2 stents LAD in 2013, history of hypertension hyperlipidemia, history of diabetes, history of CHF and history of recent catheterization in August 2016 revealing nonobstructive hernia artery disease with increased left ventricular and diastolic pressures was admitted under surgical service for total left knee arthroplasty. Postoperatively patient received a lot of fluids and developed acute CHF exacerbation. Pertinent labs today: Leukocytosis 11.8 without any bandemia,H&H low 8.1 /24.2 elevated INR 1.3 to sodium 135, elevated BUN and creatinine: 46/1.7(creatinine close to baseline) Chest x-ray :Increased diffuse pulmonary edema in both lungs since the most recent prior study.Increasing focal opacities in the left lung base and superior segment of the right lower lobe may indicate some developing areas of atelectasis orpneumonia. Small left pleural effusion. Echocardiogram :Normal left ventricular wall motion. Normal size left ventricle. Normal left ventricular ejection fraction visually estimated at 65%. Left ventricular wall thickness mildly increased. "pseudonormal" filling pattern of the left ventricle for age (stage 2 diastolic dysfunction). Problem list Acute on chronic CHF exacerbation(acute pulmonary edema) Possible evolving pneumonia Plan Acute on chronic CHF exacerbation(acute pulmonary edema) * We'll transfer the patient to telemetry floor for close monitoring * Patient already received 40 of IV Lasix in the morning Will give another 20 of IV Lasix now, * Patient continues to remain on 60% rebreather mask on 4 L, will try to taper down the oxygen. * Obtain cardiology consult with Dr. Mtz * Consider Aggressively diurese the patient with IV Lasix , 40 mg now and 80 mg twice a day Monitor BeP every day. * Monitor strict in's and O's, today to output was 800. Put in the Tovar for strict in's and O's. * Elevated proBNP, 3730 * Hold home dose of Bumex * Repeat chest x-ray tomorrow. * Watch for any any hemodynamic instability. Possible evolving pneumonia(possible aspiration pneumonia) * Elevated WBC count with low-grade temperature today 100.2, also chest x-ray is consistent with underlying developing pneumonia. * Will do blood cultures. * Consider starting the patient on IV Unasyn for possible aspiration pneumonia * Monitor vitals every 4 hours. Total left knee arthroplasty * Continue management as per surgical team Consult Acknowledgment - Thank you for your consult request. SERJIO GUTIERREZ,NICK 12/09/16 1454: Exam & Diagnostic Data Last 24 Hrs of Labs/Jose Alejandro: Laboratory Tests 12/09/16 0654: Anion Gap 10, Estimated GFR 30 L, BUN/Creatinine Ratio 27.1 H, Pro-B- Natriuretic Pept 3730 H, PT 13.8 H, INR 1.32 H, CBC w Diff NO MAN DIFF REQ, RBC 2.88 L, MCV 84.1, MCH 28.2, RDW 14.8 H, MPV 8.4, Gran % 72.9, Lymphocytes % 14.1 L, Monocytes % 9.0, Eosinophils % 3.4, Basophils % 0.6, Absolute Granulocytes 8.2 H, Absolute Lymphocytes 1.6, Absolute Monocytes 1.0 H, Absolute Eosinophils 0.4, Absolute Basophils 0.1, PUBS MCHC 33.6 Assessment/Plan Consult Acknowledgment - Thank you for your consult request. Attending MD Review Statement Attending Statement Attending MD Statement: examined this patient, discuss w/resident/PA/COMMISSION CLERK, agreed w/resident/PA/COMMISSION CLERK, reviewed EMR data (avail), discussed with nursing, reviewed images Attending Assessment/Plan: 71-year-old female with multiple medical comorbidities including CAD, chronic diastolic heart failure, diabetes, CKD, obstructive sleep apnea with questionable mild COPD who came in for a left total knee arthroplasty. We were consulted for acute hypoxemic respiratory failure. Overnight the patient got a fair amount of hydration and her O2 requirement went up to 5 L of oxygen and then later today 60% Ventimask. She appears to be in acute congestive heart failure with crackles on exam, leg edema, a chest x-ray that's showing increased interstitial markings. Off note she also has a low-grade temp of 100.2 with some leukocytosis and the possibility of aspiration was also entertained. Plan to diurese her with IV Lasix as per Dr. Mtz's recommendations, following her BUN and creatinine closely. Will get blood cultures and consider starting IV Unasyn to cover for aspiration. Coumadin dosing per orthopedics - postoperatively. Will follow her O2 requirement and her I's and O's very closely.
[2016-12-09 12:56] VITALS: BP 146/70
--- NOTE | 2016-12-09 12:59 | Cons- Pulmonary ---
General Information and HPI Consulting Request Date of Consult: 12/09/16 Requested By: kyleigh Reason for Consult: Acute pulmonary edema hypoxic respiratory failure History of Present Illness: Patient is 71-year-old status post elective knee replacement who has a history of coronary artery disease CHF and obstructive sleep apnea developed acute hypoxic respiratory failure. Chest x-ray shows evidence of pulmonary edema. Patient denies chest pain. She has required FiO2 of 60%. She was given 20 mg of Lasix and diuresed 800 mL with some improvement in her shortness of breath. She's had no cough sputum production or hemoptysis. She's been started on Coumadin though her INR remains subtherapeutic. Allergies/Medications Allergies: Coded Allergies: povidone-iodine (From BETADINE) (RASH 12/04/16) ITCH PER ANTIBIOTIC ORDER SHEET OF 12/04/16 (SJS) soap (From BETADINE) (RASH 10/22/15) PARISH Inhibitors (Mild, COUGH 10/22/15) Home Med List: Albuterol Sulfate (Proair Hfa) 90 MCG HFA.AER.AD 2 PUF INH Q4-6 PRN PRN ASTHMA (Reported) Amlodipine Besylate 5 MG TABLET 1 TAB PO DAILY htn Aspirin (Ecotrin*) 81 MG TABLET.DR 1 TAB PO DAILY HEART/BLOOD (Reported) Bumetanide 1 MG TABLET 2 TAB PO DAILY waterpill Carvedilol (Coreg) 25 MG TABLET 1 TAB PO BID HTN (Reported) Denosumab (Prolia) 60 MG/1 ML SYRINGE 60 MG SC Q6M BONES (Reported) Duloxetine HCl (Cymbalta) 60 MG CAPSULE.DR 1 CAP PO DAILY BACK PAIN/DEPRESSION (Reported) Ferrous Sulfate 325 MG (65 MG IRON) TABLET 1 TAB PO DAILY PRE OLP (Reported) Fluticasone/Salmeterol (Advair 250-50 Diskus) 1 EACH BLST.W.DEV 1 PUF INH BID ASTHMA (Reported) Hydralazine HCl 50 MG TABLET 1 TAB PO TID BP (Reported) Insulin Aspart (Novolog) (Unknown Strength) VIAL 0 SC TIDAC DIABETES ( Reported) Blood Sugar: Insulin dose 80-150 No change 151-200 Plus 2 Units 201-250 Plus 4 Units 251-300 Plus 6 Units 301-350 Plus 8 Units 351-400 Plus 10 Units >400 Plus 12 Units Insulin Aspart, Recombinant (Novolog Flexpen) 100 UNIT/ML INSULN.PEN 0 SC SI diabetes BEFORE MEALS Blood Insulin Sugar Units <80 0 81-100 2 101-200 4 201-250 6 251-300 8 301-350 10 351-400 12 >400 Call Doctor AT BEDTIME Blood Insulin Sugar Units <80 0 81-150 3 units bedtime scale 150-200 5 units 201-250 7 units 251-300 9 units 2 units 301-350 10 units 3 units 351-400 11 units 4 units >400 12 units 5 units >400 Call Doctor Insulin Detemir (Levemir) 100 UNIT/ML VIAL 20 UNITS SC AT BEDTIME diabetes Irbesartan 300 MG TABLET 0.5 TAB PO DAILY HTN (Reported) Isosorbide Mononitrate (Isosorbide Mononitrate ER) 60 MG TAB.ER.24H 60 MG PO DAILY htn Levothyroxine Sodium 100 MCG TABLET 1 TAB PO DAILY HYPOTHYROID (Reported) Rosuvastatin Calcium (Crestor) 20 MG TABLET 1 TAB PO DAILY HYPERCHOLESTROLEMIA (Reported) Review of Systems Review of Systems Constitutional: Denies: chills, fever. Cardiovascular: Denies: chest pain, edema. Respiratory: Reports: orthopnea, short of breath. Denies: hemoptysis, sputum production. GI: Denies: abdominal pain, diarrhea, melena. 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 SISTER (Pancreatic cancer). Psychosocial History Where Do You Live? Home Who Do You Live With? spouse Services at Home: None Primary Language: Thai Smoking Status: Never Smoked Functional Ability ADLs Independent: dressing, eating, toileting, bathing. Ambulation: cane, Patient used a cane when outside the house but ambulates independently indoors. Exam & Diagnostic Data Last 24 Hrs of Vital Signs/I&O Vital Signs Date Time Temp Pulse Resp B/P B/P Pulse O2 O2 Flow FiO2 Mean Ox Delivery Rate 12/09 1015 95 Part 60% ReBreather 12/09 0953 75 172/62 12/09 0953 75 172/62 12/09 0953 75 172/62 12/09 0952 75 172/62 12/09 0949 75 172/62 12/09 0800 90 Nasal 5.0L Cannula 12/09 0648 98.0 69 20 150/60 90 Nasal 5.0L Cannula 12/09 0348 93 CPAP 5.0L 12/09 0345 20 90 CPAP 12/09 0000 95 CPAP 12/08 2155 98.4 73 20 152/58 95 Nasal 2.0L Cannula 12/08 2110 73 152/58 12/08 2109 73 152/58 12/08 1639 Nasal 2.0L Cannula 12/08 1639 94 Nasal 2.0L Cannula 12/08 1616 68 126/70 12/08 1600 94 Nasal 1.0L Cannula 12/08 1451 98.6 68 20 126/70 94 Nasal 1.0L Cannula Intake & Output 12/09 1600 12/09 0800 12/09 0000 Intake Total 500 720 Output Total 350 500 Balance 150 220 Intake, IV 20 Intake, Oral 480 720 Number 0 Bowel Movements Output, Urine 350 500 FiO2 60% 95% HEENT exam JVD is difficult to ascertain due to the nature of her neck exam her chest shows diffuse crackles are no expiratory wheezing cardiac exam shows regular rhythm there are no appreciable murmurs heard abdominal exam is soft nontender extremities are without calf tenderness or edema Last 48 Hrs of Labs/Jose Alejandro: Laboratory Tests 12/09/16 0654: Anion Gap 10, Estimated GFR 30 L, BUN/Creatinine Ratio 27.1 H, PT 13.8 H, INR 1.32 H, CBC w Diff NO MAN DIFF REQ, RBC 2.88 L, MCV 84.1, MCH 28.2, RDW 14.8 H, MPV 8.4, Gran % 72.9, Lymphocytes % 14.1 L, Monocytes % 9.0, Eosinophils % 3.4, Basophils % 0.6, Absolute Granulocytes 8.2 H, Absolute Lymphocytes 1.6, Absolute Monocytes 1.0 H, Absolute Eosinophils 0.4, Absolute Basophils 0.1, PUBS MCHC 33.6 12/08/16 0630: Anion Gap 9, Estimated GFR 28 L, BUN/Creatinine Ratio 26.7 H, PT 11.4, INR 1.09, CBC w Diff NO MAN DIFF REQ, RBC 2.89 L, MCV 84.3, MCH 27.8, RDW 14.9 H, MPV 8.7, Gran % 63.4, Lymphocytes % 18.0 L, Monocytes % 11.7 H, Eosinophils % 6.1 H, Basophils % 0.8, Absolute Granulocytes 5.0, Absolute Lymphocytes 1.4, Absolute Monocytes 0.9 H, Absolute Eosinophils 0.5, Absolute Basophils 0.1, PUBS MCHC 33.0 Assessment/Plan Impression/Plan: 71-year-old woman with history of coronary artery disease congestive heart failure hypertension and obstructive sleep apnea status post knee replacement has developed acute pulmonary edema. She has hypoxic respiratory failure secondary to pulmonary edema. Other considerations such as aspiration pneumonia seems less likely though she does have a leukocytosis which may be stress related Recommendations: Transferred to telemetry service. Obtain EKG BNP and serial troponins. Dr. Jackman her patient appointment coordinator was contacted and will see her within the hour. Optimize anticoagulation. Shortness of breath is improved with diuresis but otherwise BiPAP can be used as needed. Consult Acknowledgment - Thank you for your consult request.
--- NOTE | 2016-12-09 13:01 | NUR ---
PT TRANSFERRED TO TELE BY DAY [employer] MONA Sky AND EVENING [employer] KATHERINE. REPORT GIVEN TO WOODROW WHITAKER. ALSO SEE TRANSFER DISPOSITION.
--- NOTE | 2016-12-09 13:03 | NUR ---
Physical Therapy: Attempted to see pt this afternoon for treatment. Pt with downgrade in medical status from GM to tele. Also on Partial NR for respirtory issues. At this time will place pt on hold from skilled PT intervention per protocol. Please reconsult when pt is medically stable and appropriate. Thank you.
[2016-12-09 13:39] VITALS: BP 168/78
--- NOTE | 2016-12-09 14:35 | Cons- Cardiology ---
General Information and HPI Consulting Request Date of Consult: 12/09/16 Requested By: JUAN DIEGO GUTIERREZ,YANNICK Reason for Consult: sob Source of Information: patient Exam Limitations: no limitations History of Present Illness: 71 year old female with h/o CAD, LCX stentx2 in 2013, HTN, dyslipidemia, DM, CRI , CHF (last cath in August 2016 revealing non obstructive CAD, increased LVEDP), anemia, COPD. Patient underwent elective left TKR on Wednesday. She was doing fine untile yesterday evening when she developed progressive dyspnea at rest overnight associated with hypoxia. No CP, palpitations. She also developed fever. CXR showed pulmonary edema, ? LLL infiltrate. Allergies/Medications Allergies: Coded Allergies: povidone-iodine (From BETADINE) (RASH 12/04/16) ITCH PER ANTIBIOTIC ORDER SHEET OF 12/04/16 (SJS) soap (From BETADINE) (RASH 10/22/15) PARISH Inhibitors (Mild, COUGH 10/22/15) Home Med List: Albuterol Sulfate (Proair Hfa) 90 MCG HFA.AER.AD 2 PUF INH Q4-6 PRN PRN ASTHMA (Reported) Amlodipine Besylate 5 MG TABLET 1 TAB PO DAILY htn Aspirin (Ecotrin*) 81 MG TABLET.DR 1 TAB PO DAILY HEART/BLOOD (Reported) Bumetanide 1 MG TABLET 2 TAB PO DAILY waterpill Carvedilol (Coreg) 25 MG TABLET 1 TAB PO BID HTN (Reported) Denosumab (Prolia) 60 MG/1 ML SYRINGE 60 MG SC Q6M BONES (Reported) Duloxetine HCl (Cymbalta) 60 MG CAPSULE.DR 1 CAP PO DAILY BACK PAIN/DEPRESSION (Reported) Ferrous Sulfate 325 MG (65 MG IRON) TABLET 1 TAB PO DAILY PRE OLP (Reported) Fluticasone/Salmeterol (Advair 250-50 Diskus) 1 EACH BLST.W.DEV 1 PUF INH BID ASTHMA (Reported) Hydralazine HCl 50 MG TABLET 1 TAB PO TID BP (Reported) Insulin Aspart (Novolog) (Unknown Strength) VIAL 0 SC TIDAC DIABETES ( Reported) Blood Sugar: Insulin dose 80-150 No change 151-200 Plus 2 Units 201-250 Plus 4 Units 251-300 Plus 6 Units 301-350 Plus 8 Units 351-400 Plus 10 Units >400 Plus 12 Units Insulin Aspart, Recombinant (Novolog Flexpen) 100 UNIT/ML INSULN.PEN 0 SC SI diabetes BEFORE MEALS Blood Insulin Sugar Units <80 0 81-100 2 101-200 4 201-250 6 251-300 8 301-350 10 351-400 12 >400 Call Doctor AT BEDTIME Blood Insulin Sugar Units <80 0 81-150 3 units bedtime scale 150-200 5 units 201-250 7 units 251-300 9 units 2 units 301-350 10 units 3 units 351-400 11 units 4 units >400 12 units 5 units >400 Call Doctor Insulin Detemir (Levemir) 100 UNIT/ML VIAL 20 UNITS SC AT BEDTIME diabetes Irbesartan 300 MG TABLET 0.5 TAB PO DAILY HTN (Reported) Isosorbide Mononitrate (Isosorbide Mononitrate ER) 60 MG TAB.ER.24H 60 MG PO DAILY htn Levothyroxine Sodium 100 MCG TABLET 1 TAB PO DAILY HYPOTHYROID (Reported) Rosuvastatin Calcium (Crestor) 20 MG TABLET 1 TAB PO DAILY HYPERCHOLESTROLEMIA (Reported) Current Medications: Current Medications Sig/Larissa Start time Last Medication Dose Route Stop Time Status Admin Al Hydroxide/Mg 30 ML .STK-MED ONE 12/08 175 DC Hydroxide PO 12/08 1752 Al Hydroxide/Mg 30 ML Q6P PRN 12/07 1445 AC 12/08 Hydroxide PO 1750 Albuterol Sulfate 2 PUF Q4-6 PRN PRN 12/07 1445 AC INH Amlodipine Besylate 5 MG DAILY 12/07 1000 AC 12/09 PO 0953 Budesonide/ 2 PUF BID 12/07 2200 AC 12/09 Formoterol Fumarate INH 0946 Bumetanide 2 MG DAILY 12/07 1000 AC 12/09 PO 0951 Carvedilol 25 MG BID 12/07 1000 AC 12/09 PO 0952 Docusate Sodium 100 MG BID 12/08 1000 AC 12/09 PO 0952 Duloxetine HCl 60 MG DAILY 12/08 1000 AC 12/09 PO 0953 Furosemide 80 MG BID 12/09 2200 UNVr IV Furosemide 40 MG ONCE ONE 12/09 1430 UNVr 12/09 IV 12/09 1431 1425 Furosemide 20 MG ONCE ONE 12/09 1245 CAN IV 12/09 1246 Furosemide 20 MG ONCE ONE 12/09 1030 DC 12/09 IV 12/09 1031 1041 Furosemide 20 MG ONCE ONE 12/09 1015 DC 12/09 IV 12/09 1016 1003 Hydralazine HCl 50 MG TID 12/08 1000 AC 12/09 PO 0953 Insulin Aspart 0 TIDAC 12/07 1200 AC SC Insulin Detemir 20 UNITS AT BEDTIME 12/07 2200 AC 12/08 SC 2110 Isosorbide 60 MG DAILY 12/07 1000 AC 12/09 Mononitrate PO 0949 Levothyroxine Sodium 0.1 MG DAILY AC 12/07 0700 AC 12/09 PO 0615 Losartan Potassium 50 MG DAILY 12/08 1000 AC 12/09 PO 0953 Morphine Sulfate 2 MG Q3P PRN 12/07 1445 AC IV Morphine Sulfate 4 MG Q3P PRN 12/07 1445 AC IV Ondansetron HCl 4 MG Q6P PRN 12/07 1445 AC IV Oxycodone/ 1 TAB Q4P PRN 12/07 1445 AC 12/08 Acetaminophen PO 0553 Oxycodone/ 2 TAB Q4P PRN 12/07 1445 AC 12/09 Acetaminophen PO 0331 Polyethylene Glycol 17 GM DAILY 12/08 1000 AC 12/09 PO 0953 Senna/Docusate Sodium 2 TAB AT BEDTIME NEED.. 12/07 1445 AC PO Warfarin Sodium 5 MG COUMADIN 1700 ONE 12/09 1700 AC PO 12/09 1701 Warfarin Sodium 5 MG COUMADIN 1700 ONE 12/08 1700 DC 12/08 PO 12/08 1701 1616 Review of Systems Review of Systems Constitutional: Reports: weakness. Denies: no symptoms, see HPI, chills, diaphoresis, fever, malaise, unexplained weight loss. EENTM: Denies: no symptoms, see HPI, blurred vision, double vision, visual changes, eye pain, eye drainage, eye tearing, icterus, ear discharge, ear pain, ear redness, hearing changes, nasal congestion, epistaxis, nasal pain, throat pain, throat swelling, mouth pain, tooth pain. Cardiovascular: Reports: orthopena. Denies: no symptoms, see HPI, chest pain, edema, palpitations, peripheral edema, syncope. Respiratory: Reports: short of breath. Denies: no symptoms, see HPI, cough, hemoptysis, orthopnea, sputum production, stridor, wheezing. GI: Denies: no symptoms, see HPI, abdominal pain, bloating, constipation, diarrhea, distention, bowel incontinence, melena, nausea, bloody stool, changes in stool, vomiting, steatorrhea. Genitourinary: Denies: no symptoms, see HPI, discharge, dysuria, frequency, hematuria, hesitation, nocturia, pain, urgency. Musculoskeletal: Denies: no symptoms, see HPI, back pain, gout, joint pain, joint swelling, muscle pain, muscle stiffness, neck pain. Skin: Denies: no symptoms, see HPI, cysts, change in skin color, change in hair/nails, dryness, erythema, jaundice, lesions, lymphangitis, lumps, moles, rash. Neurological/Psychological: Denies: no symptoms, see HPI, anxiety, ataxia, cognitive dysfunction, confusion, depressed, dementia, emotional problems, headache, numbness, paresthesia, pre- existing deficit, petit mal seizures, tingling, tremors, tonic-clonic seizures, unable to move lower ext, unable to move upper ext, weakness, other. Hematologic/Endocrine: Denies: no symptoms, see HPI, bruising, bleeding, polyuria, polydipsia, other. Immunologic/Allergic: Denies: no symptoms, see HPI, splenectomy, HIV/AIDS, lymphadenopathy, other. 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 SISTER (Pancreatic cancer). Psychosocial History Where Do You Live? Home Who Do You Live With? spouse Services at Home: None Primary Language: Burkinan Smoking Status: Never Smoked Functional Ability ADLs Independent: dressing, eating, toileting, bathing. Ambulation: cane, Patient used a cane when outside the house but ambulates independently indoors. Exam & Diagnostic Data Vital Signs and I&O Vital Signs Date Time Temp Pulse Resp B/P B/P Pulse O2 O2 Flow FiO2 Mean Ox Delivery Rate 12/09 1339 101.0 73 20 168/78 91 Part 60% ReBreather 12/09 1256 100.2 75 20 146/70 95 Part ReBreather 12/09 1015 95 Part 60% ReBreather 12/09 0953 75 172/62 12/09 0953 75 172/62 07 0953 75 172/62 12/09 0952 75 172/62 12/09 0949 75 172/62 / 0800 90 Nasal 5.0L Cannula 12/09 0648 98.0 69 20 150/60 90 Nasal 5.0L Cannula 12/09 0348 93 CPAP 5.0L 12/09 0345 20 90 CPAP 12/09 0000 95 CPAP 12/08 2155 98.4 73 20 152/58 95 Nasal 2.0L Cannula 12/08 2110 73 152/58 12/08 2109 73 152/58 12/08 1639 Nasal 2.0L Cannula 12/08 1639 94 Nasal 2.0L Cannula 12/08 1616 68 126/70 12/08 1600 94 Nasal 1.0L Cannula 12/08 1451 98.6 68 20 126/70 94 Nasal 1.0L Cannula Intake & Output 12/09 1600 12/09 0800 12/09 0000 12/08 1600 12/08 0800 12/08 0000 Intake Total 500 720 575 940 Output Total 350 500 500 600 250 Balance 150 220 75 -600 690 Intake, IV 20 300 300 Intake, Oral 480 720 275 640 Number 0 0 0 Bowel Movements Output, Urine 350 500 500 600 250 Physical Exam: HEENT-PERRLA Neck-JVP elevated, no bruits Lungs-diffuse bilateral exspiratory crackles, rhonchi Heart-S1S2 regular, no murmur Abdomen-soft, not tender, BS+, no organomegaly Ext-trace edema, no cyanosis, 2+ pulses Neuro-non focal, AAO to time, place and person Labs/Jose Alejandro Results: Laboratory Tests 12/09 12/08 0654 0630 Chemistry Sodium (137 - 145 mmol/L) 135 L 136 L Potassium (3.5 - 5.1 mmol/L) 4.8 4.8 Chloride (98 - 107 mmol/L) 102 103 Carbon Dioxide (22 - 30 mmol/L) 23 24 Anion Gap (5 - 16) 10 9 BUN (7 - 17 mg/dL) 46 H 48 H Creatinine (0.5 - 1.0 mg/dL) 1.7 H 1.8 H Estimated GFR (>60 ml/min) 30 L 28 L BUN/Creatinine Ratio (7 - 25 %) 27.1 H 26.7 H Jse-C-Fzomjmecgra Pept (<125 pg/mL) 3730 H Coagulation PT (9.4 - 12.5 SEC) 13.8 H 11.4 INR (0.90 - 1.19) 1.32 H 1.09 Hematology CBC w Diff NO MAN DIFF REQ NO MAN DIFF REQ WBC (4.8 - 10.8 /CUMM) 11.2 H 7.9 RBC (4.20 - 5.40 /CUMM) 2.88 L 2.89 L Hgb (12.0 - 16.0 G/DL) 8.1 L 8.0 L Hct (37 - 47 %) 24.2 L 24.3 L MCV (81.0 - 99.0 FL) 84.1 84.3 MCH (27.0 - 31.0 PG) 28.2 27.8 RDW (11.5 - 14.5 %) 14.8 H 14.9 H Plt Count (130 - 400 /CUMM) 160 158 MPV (7.4 - 10.4 FL) 8.4 8.7 Gran % (42.2 - 75.2 %) 72.9 63.4 Lymphocytes % (20.5 - 51.1 %) 14.1 L 18.0 L Monocytes % (1.7 - 9.3 %) 9.0 11.7 H Eosinophils % (0 - 5 %) 3.4 6.1 H Basophils % (0.0 - 2.0 %) 0.6 0.8 Absolute Granulocytes (1.4 - 6.5 /CUMM) 8.2 H 5.0 Absolute Lymphocytes (1.2 - 3.4 /CUMM) 1.6 1.4 Absolute Monocytes (0.10 - 0.60 /CUMM) 1.0 H 0.9 H Absolute Eosinophils (0.0 - 0.7 /CUMM) 0.4 0.5 Absolute Basophils (0.0 - 0.2 /CUMM) 0.1 0.1 PUBS MCHC (33.0 - 37.0 G/DL) 33.6 33.0 Diagnostic Data EKG Results SR, 1st AVB, RAD, no significant ST abnormalities CXR Results Pulmonary edema, ?LLL infiltrate Assessment/Plan Assessment/Plan 70 year old female with h/o CAD, LCX stentx2 in 2013, HTN, dyslipidemia, DM, CRI , CHF (last cath in August 2016 revealing non obstructive CAD, increased LVEDP), anemia developed hypoxic respiratory failure 24 hours after elective left TKR. Etiology likely due to HFpEF but she also spiked fever and WBC is elevated, CXR concerning for LLL infiltrate. She starte diuresing after Lasix 40 mg iv given in the morning. Plan: Lasix 40 mg iv now, then 80 mg iv bid negative fluid balance Tovar catheter just place troponin x3 q8 hours continue warfarin ASA 81 mg qd continue other BP meds monitor renal function, blood count blood cultures Unasyn for possible aspiration CPAP at night Consult Acknowledgment - Thank you for your consult request.
--- NOTE | 2016-12-09 15:28 | RADIOLOGY REPORT ---
EXAMINATION: XR PORTABLE CHEST CLINICAL INFORMATION: Shortness of breath. COMPARISON: CXR from 12/08/2016 and 12/09/2016 at 9:01 am TECHNIQUE: Portable frontal view of the chest was obtained. FINDINGS: Cardiomegaly, engorged and indistinct pulmonary vessels, and persistent patchy bilateral pulmonary opacities, likely representing cardiogenic pulmonary edema. No overt pleural effusion. No pneumothorax or other significant interval change. IMPRESSION: Findings suggestive of cardiogenic pulmonary edema -- similar in appearance compared to the prior radiograph performed earlier in the day.
--- NOTE | 2016-12-09 15:46 | NUR ---
PT TRANSFERRED FROM . ON 60% PARTIAL REBREATHER SATING 90-91%. COARSE CRACKLES TO ALL LUNG ROTH. HAS INCREASED WORK OF BREATHING BUT NOT IN DISTRESS. IV LASIX 40MG GIVEN. HALE INSERTED FOR STRICT I+Os. TOLERATED PROCEDURE WELL. URINE CX SENT, BLOOD WORK ALONG WITH BLOOD CX SENT. CXR DONE. EKG DONE. TEMP IS 101. MD UPDATED. NSR ON TELEMETRY. SAFETY MAINTINED. CALL LIGHT IN REACH.
[2016-12-09 23:15] VITALS: BP 140/72
[2016-12-10 06:51] VITALS: BP 158/60
--- NOTE | 2016-12-10 07:20 | PN- Orthopedic ---
Subjective Subjective: Patient states her knee is doing better. She has less pain. She denies any fever or flulike illness. She feels as though her respiratory status is improving. Objective Vital Signs and I&Os Vital Signs Date Time Temp Pulse Resp B/P B/P Pulse O2 O2 Flow FiO2 Mean Ox Delivery Rate 12/10 0651 97.9 71 20 158/60 92 CPAP 12/10 0000 CPAP 12/09 2315 99.0 74 22 140/72 95 07/ 2231 91 CPAP 12/09 2150 80 140/78 12/09 2150 80 140/78 / 2030 98.6 12/09 2000 94 Part 60% ReBreather 12/09 1800 93 Nasal 80% Cannula 12/09 1438 94 Part 60% ReBreather 12/09 1400 Part 60% ReBreather 12/09 1339 101.0 73 20 168/78 91 Part 60% ReBreather 12/09 1256 100.2 75 20 146/70 95 Part ReBreather 12/09 1015 95 Part 60% ReBreather 12/09 0953 75 172/62 12/09 0953 75 172/62 12/09 0953 75 172/62 / 0952 75 172/62 / 0949 75 172/62 / 0800 90 Nasal 5.0L Cannula Intake & Output 12/10 0800 / 0000 / 1600 /05 0800 / 0000 / 1600 Intake Total 220 265 500 720 575 Output Total 300 300 800 350 500 500 Balance -300 -80 -535 150 220 75 Intake, IV 100 40 20 300 Intake, Oral 120 225 480 720 275 Number 0 0 0 Bowel Movements Output, Urine 300 300 800 350 500 500 Physical Exam: Well-developed well-nourished no apparent distress. HEENT: Atraumatic, extraocular motion intact Neck: Supple, no lymphadenopathy Respiratory: No respiratory distress Extremities: No edema LEFT lower extremity dressing in place, Incision line is clean dry and intact. No signs of infection. Mild joint effusion Range of motion is 0-60. Compression wrap in place. ALPS in place Neurovascularly intact distally Bilateral calves are supple, nontender. Neuro: Alert and oriented x3 Psych: Mood affect normal, normal memory normal judgment. Skin: Warm and dry, no rash on exposed skin Assessment/Plan Assessment/Plan 70 year old female postop day #3 status post left total knee arthroplasty with multiple medical comorbidities including coronary disease, CHF, hypertension, diabetes, chronic renal insufficiency. Postoperative course was Complicated by CHF and CXR concerning for LLL infiltrate. Plan: Appreciate cardiology and medical input, current diuresis with Lasix Labs pending this morning Acute blood loss anemia on chronic anemia , CBC pending this morning Physical therapy, out of bed and bedside exercises for the left knee for range of motion continue warfarin ASA 81 mg qd daily dsd changes L knee Unasyn for possible aspiration Consider transfer to medical service, will discuss with the medical team. Core Measures/Miscellaneous Venous Thromboembolism VTE Risk Factors: Age > 40, Surgery VTE Contraindications: No Contraindications VTE Diagnosis: No Beta Michael Is Beta Michael a Home Med? No Antibiotics Is Patient on Antibiotics? No
--- NOTE | 2016-12-10 07:21 | PN- Medicine Consult ---
STEVE BARAHONA 12/10/16 0720: Assessment/Plan Assessment/Plan Assessment: Patient is a 71-year-old woman with past medical history significant for coronary artery disease status post 2 stents LAD in 2013, history of hypertension hyperlipidemia, history of diabetes, history of CHF and history of recent catheterization in August 2016 revealing nonobstructive hernia artery disease with increased left ventricular and diastolic pressures was admitted under surgical service for total left knee arthroplasty. Postoperatively patient received a lot of fluids and developed acute CHF exacerbation. Pertinent labs today: Leukocytosis 11.8 without any bandemia,H&H low 8.1 /24.2 elevated INR 1.3 to sodium 135, elevated BUN and creatinine: 46/1.7(creatinine close to baseline) Chest x-ray :Increased diffuse pulmonary edema in both lungs since the most recent prior study.Increasing focal opacities in the left lung base and superior segment of the right lower lobe may indicate some developing areas of atelectasis orpneumonia. Small left pleural effusion. Echocardiogram :Normal left ventricular wall motion. Normal size left ventricle. Normal left ventricular ejection fraction visually estimated at 65%. Left ventricular wall thickness mildly increased. "pseudonormal" filling pattern of the left ventricle for age (stage 2 diastolic dysfunction). Problem list Acute on chronic CHF exacerbation(acute pulmonary edema) Possible evolving pneumonia Plan: Plan Acute on chronic CHF exacerbation(concerns of acute pulmonary edema) * Continue to monitor patient on telemetry floor. * Breathing is getting better , currently on CPAP,try to taper down the oxygen * Continue aggressive diuresis with with IV Lasix 80 mg twice a day, if kidney functions are stable creatinine below low 2 * Monitor BeP every day. * Monitor strict in's and O's, patient remains in negative fluid balance . * Elevated proBNP, 3730 * Repeat chest x-ray tomorrow. * Watch for any any hemodynamic instability. * Resume home dose of Bumex on discharge Possible evolving pneumonia(possible aspiration pneumonia) * Elevated WBC count with low-grade temperature today 100.2, also chest x-ray is consistent with underlying developing pneumonia. * blood cultures are pending. * Continue IV Unasyn for now for possible aspiration pneumonia. * Will consider discontinuing IV Unasyn tomorrow if repeated chest x-ray did not reveal any evidence of infiltrate/consolidation * Monitor vitals every 4 hours. Total left knee arthroplasty * Continue management as per surgical team. * Continue Coumadin as per surgery recommendations. . Problem List: 1. CHF (congestive heart failure) Subjective Subjective: Patient is seen and examined in the morning, seems better than yesterday slept well. On CPAP, denies any chest discomfort or breathing palpitations. Remains in negative balance overnight. Review of Systems Constitutional: Denies: chills, diaphoresis, fever, malaise. EENTM: Denies: blurred vision, double vision, visual changes, eye pain. Cardiovascular: Denies: chest pain, edema, orthopena. Respiratory: Reports: short of breath. Denies: cough, hemoptysis, orthopnea. Gastrointestinal: Denies: bloating, constipation, diarrhea. Genitourinary: Denies: discharge, dysuria, hematuria. Musculoskeletal: Denies: back pain, gout, joint pain. Skin: Denies: cysts, change in skin color, dryness. Neurological/Psychological: Denies: anxiety, ataxia, cognitive dysfunction. Objective Last 24 Hrs of Vital Signs/I&O Vital Signs Date Time Temp Pulse Resp B/P B/P Pulse O2 O2 Flow FiO2 Mean Ox Delivery Rate 12/10 0651 97.9 71 20 158/60 92 CPAP 12/10 0000 CPAP 12/09 2315 99.0 74 22 140/72 95 / 2231 91 CPAP 12/09 2150 80 140/78 12/09 2150 80 140/78 / 2030 98.6 12/09 2000 94 Part 60% ReBreather 12/09 1800 93 Nasal 80% Cannula 12/09 1438 94 Part 60% ReBreather 12/09 1400 Part 60% ReBreather 12/09 1339 101.0 73 20 168/78 91 Part 60% ReBreather 12/09 1256 100.2 75 20 146/70 95 Part ReBreather 12/09 1015 95 Part 60% ReBreather / 0953 75 172/62 07/05 0953 75 172/62 /05 0953 75 172/62 /05 0952 75 172/62 07/05 0949 75 172/62 / 0800 90 Nasal 5.0L Cannula Intake & Output 12/10 0800 07/06 0000 07/05 1600 Intake Total 220 265 Output Total 300 300 800 Balance -300 -80 -535 Intake, IV 100 40 Intake, Oral 120 225 Number 0 Bowel Movements Output, Urine 300 300 800 Physical Exam General Appearance: well developed/nourished, no apparent distress Head: atraumatic, normal appearance Ears, Nose, Throat: normal pharynx Neck: normal inspection, supple Cardiovascular: regular rate/rhythm Respiratory: normal breath sounds Peripheral Pulses: 4+ carotid (R), 4+ carotid (L) Abdomen: normal bowel sounds, soft, non-tender Extremities: swelling Neurologic/Psychiatric: no motor/sensory deficits, awake Current Medications: Current Medications Sig/Larissa Start time Last Medication Dose Route Stop Time Status Admin Acetaminophen 650 MG Q6P PRN 12/10 1045 AC PO Acetaminophen 1,000 MG Q8P PRN 12/10 1045 AC N/A 1 UNIT IV Al Hydroxide/Mg 30 ML Q6P PRN 12/07 1445 AC 12/08 Hydroxide PO 1750 Albuterol Sulfate 2 PUF Q4-6 PRN PRN 12/07 1445 AC INH Amlodipine Besylate 5 MG DAILY 12/07 1000 AC 12/10 PO 0816 Ampicillin Sodium/ 1,500 MG Q12H 12/09 1700 AC 12/11 Sulbactam Sodium IV 0440 Sodium Chloride 100 ML Aspirin Buffered 81 MG DAILY 12/09 1536 AC 12/10 PO 0815 Budesonide/ 2 PUF BID 12/07 2200 AC 12/10 Formoterol Fumarate INH 2205 Carvedilol 25 MG BID 12/07 1000 AC 12/10 PO 2205 Docusate Sodium 100 MG BID 12/08 1000 AC 12/10 PO 2206 Duloxetine HCl 60 MG DAILY 12/08 1000 AC 12/10 PO 0818 Furosemide 40 MG ONCE ONE 12/10 2044 DC 12/10 IV 12/10 Furosemide 80 MG BID 12/09 2200 AC 12/10 IV 0818 Hydralazine HCl 50 MG TID 12/08 1000 AC 12/10 PO 2206 Insulin Aspart 0 TIDAC 12/07 1200 AC 12/10 SC 1735 Insulin Detemir 20 UNITS AT BEDTIME 12/07 2200 AC 12/10 SC 2205 Isosorbide 60 MG DAILY 12/07 1000 AC 12/10 Mononitrate PO 0816 Levothyroxine Sodium 0.1 MG DAILY AC 12/07 0700 AC 12/11 PO 0535 Losartan Potassium 50 MG DAILY 12/08 1000 AC 12/10 PO 0815 Morphine Sulfate 2 MG Q3P PRN 12/07 1445 DC IV Morphine Sulfate 4 MG Q3P PRN 12/07 1445 DC IV Ondansetron HCl 4 MG Q6P PRN 12/07 1445 AC IV Oxycodone/ 1 TAB Q4P PRN 12/07 1445 DC 12/08 Acetaminophen PO 0553 Oxycodone/ 2 TAB Q4P PRN 12/07 1445 DC 12/10 Acetaminophen PO 0814 Polyethylene Glycol 17 GM DAILY 12/08 1000 AC 12/10 PO 0814 Senna/Docusate Sodium 2 TAB AT BEDTIME NEED.. 12/07 1445 AC 12/09 PO 2332 Warfarin Sodium 5 MG COUMADIN 1700 ONE 12/10 1700 DC 12/10 PO 12/10 1701 1726 Results Last 24 Hrs Lab/Jose Alejandro Results: . SERJIO GUTIERREZ,NICK 12/10/16 1012: Attending MD Review Statement Attending Sign Off Attending Cosign Statement: I have: examined this patient, reviewed [facility] EMR data, personally reviewd images, discussd w/resident/PA/BUCKET PUSHER, agreed w/resident/PA/BUCKET PUSHER. Other Findings: Pt is still requiring 50% Ventimask and her O2 sat on that is 90-93%. This is despite getting Lasix 80 IV twice a day. We'll continue the Lasix 80mg IV twice a day. Off note the creatinine has gone to 2 but she does have CKD her baseline creatinine appears to be in the 1.6-1.8 today so we will watch it closely. This is a 71-year-old female with a past medical history of diabetes, coronary artery disease, CKD, chronic diastolic heart failure and obstructive sleep apnea with mild COPD who is here status post left total knee arthroplasty. Postoperatively she went into acute hypoxemic respiratory failure with acute diastolic heart failure exacerbation requiring IV Lasix and because of the fever 101, leukocytosis and possible infiltrate on chest x-ray we are also treating her with IV Unasyn for a possible aspiration pneumonia. Given all of her comorbidities and issues I think she is better served in the medical service and I agree with transfer to the medical service. At this point she also needs blood as she has developed an acute on chronic blood loss anemia. We will have to be very careful given her diastolic heart failure and will give the blood really slowly over 4 hours and see if she needs any more additional Lasix after the blood. We will follow the creatinine closely, dose the Coumadin to keep the INR therapeutic per orthopedics and try and titrate down the oxygen. If tomorrow's chest x-ray shows considerable improvement will consider stopping the antibiotics.
--- NOTE | 2016-12-10 07:40 | PN- Cardiology ---
Subjective Subjective: Patient is currently on overnight CPAP, she states breathing is better. No CP or palpitations Review of Systems: 12 point ROS negative Objective Vital Signs and I&Os Vital Signs Date Time Temp Pulse Resp B/P B/P Pulse O2 O2 Flow FiO2 Mean Ox Delivery Rate 12/10 0651 97.9 71 20 158/60 92 CPAP 12/10 0000 CPAP 12/09 2315 99.0 74 22 140/72 95 / 2231 91 CPAP 12/09 2150 80 140/78 12/09 2150 80 140/78 12/09 2030 98.6 12/09 2000 94 Part 60% ReBreather 12/09 1800 93 Nasal 80% Cannula 12/09 1438 94 Part 60% ReBreather 12/09 1400 Part 60% ReBreather 12/09 1339 101.0 73 20 168/78 91 Part 60% ReBreather 12/09 1256 100.2 75 20 146/70 95 Part ReBreather 12/09 1015 95 Part 60% ReBreather 12/09 0953 75 172/62 12/09 0953 75 172/62 12/09 0953 75 172/62 12/09 0952 75 172/62 12/09 0949 75 172/62 12/09 0800 90 Nasal 5.0L Cannula Intake & Output 12/10 0800 12/10 0000 12/09 1600 12/09 0800 12/09 0000 12/08 1600 Intake Total 100 220 265 500 720 575 Output Total 600 300 800 350 500 500 Balance -500 -80 -535 150 220 75 Intake, IV 100 40 20 300 Intake, Oral 100 120 225 480 720 275 Number 0 0 0 Bowel Movements Output, Urine 600 300 800 350 500 500 Physical Exam: HEENT-PERRLA Neck-JVP mildly elevated, no carotid bruit Lungs-few rales on the left otherwise clear Heart-S1S2 regular, no murmur Abdomen-soft, not tender, BS+, no organomegally or masses Ext-no edema, 2+ pulses, no cyanosis Neuro-non focal, AAOx3 Skin-no rash Current Medications: Current Medications Sig/Larissa Start time Last Medication Dose Route Stop Time Status Admin Al Hydroxide/Mg 30 ML Q6P PRN 12/07 1445 AC / Hydroxide PO 1750 Albuterol Sulfate 2 PUF Q4-6 PRN PRN 07/03 1445 AC INH Amlodipine Besylate 5 MG DAILY 12/07 1000 AC 12/09 PO 0953 Ampicillin Sodium/ 1,500 MG Q12H 12/09 1700 AC 12/10 Sulbactam Sodium IV 0543 Sodium Chloride 100 ML Aspirin Buffered 81 MG DAILY 12/09 1536 AC 07 PO 1723 Budesonide/ 2 PUF BID 12/07 2200 AC 12/09 Formoterol Fumarate INH 2150 Bumetanide 2 MG DAILY 12/07 1000 DC 12/09 PO 0951 Carvedilol 25 MG BID 12/07 1000 AC 12/09 PO 2150 Docusate Sodium 100 MG BID 12/08 1000 AC 12/09 PO 2150 Duloxetine HCl 60 MG DAILY 12/08 1000 AC 12/09 PO 0953 Furosemide 80 MG BID 12/09 2200 AC 12/09 IV 2219 Furosemide 40 MG ONCE ONE 12/09 1830 DC 07 IV 12/09 1831 1833 Furosemide 40 MG ONCE ONE 12/09 1430 DC 12/09 IV 12/09 1431 1425 Furosemide 20 MG ONCE ONE 12/09 1245 CAN IV 12/09 1246 Furosemide 20 MG ONCE ONE 12/09 1030 DC 07/ IV 12/09 1031 1041 Furosemide 20 MG ONCE ONE 12/09 1015 DC 07 IV 12/09 1016 1003 Hydralazine HCl 50 MG TID 12/08 1000 AC 12/09 PO 2150 Insulin Aspart 0 TIDAC 12/07 1200 AC 12/09 SC 1734 Insulin Detemir 20 UNITS AT BEDTIME 12/07 2200 AC 12/09 SC 2150 Isosorbide 60 MG DAILY 12/07 1000 AC 12/09 [place]itrate PO 0949 Levothyroxine Sodium 0.1 MG DAILY AC 12/07 0700 AC 12/10 PO 0647 Losartan Potassium 50 MG DAILY 12/08 1000 AC 12/09 PO 0953 Morphine Sulfate 2 MG Q3P PRN 12/07 1445 AC IV Morphine Sulfate 4 MG Q3P PRN 12/07 1445 AC IV Ondansetron HCl 4 MG Q6P PRN 12/07 1445 AC IV Oxycodone/ 1 TAB Q4P PRN 12/07 1445 AC 12/08 Acetaminophen PO 0553 Oxycodone/ 2 TAB Q4P PRN 12/07 1445 AC 12/09 Acetaminophen PO 2332 Polyethylene Glycol 17 GM DAILY 12/08 1000 AC 12/09 PO 0953 Senna/Docusate Sodium 2 TAB AT BEDTIME NEED.. 12/07 1445 AC 12/09 PO 2332 Warfarin Sodium 5 MG COUMADIN 1700 ONE 12/09 1700 DC 12/09 PO 12/09 1701 1723 Results Last 48 Hrs of Labs/Mics: Laboratory Tests 12/10/16 0615: Troponin I Pending 12/10/16 0615: Sodium Pending, Potassium Pending, Chloride Pending, Carbon Dioxide Pending, Anion Gap Pending, BUN Pending, Creatinine Pending, BUN/Creatinine Ratio Pending , PT Pending, INR Pending, CBC w Diff Pending, WBC Pending, RBC Pending, Hgb Pending, Hct Pending, MCV Pending, MCH Pending, RDW Pending, Plt Count Pending, MPV Pending, PUBS MCHC Pending 12/10/16 0020: Troponin I 0.05 12/09/16 1500: Troponin I 0.03 12/09/16 0654: Anion Gap 10, Estimated GFR 30 L, BUN/Creatinine Ratio 27.1 H, Pro-B- Natriuretic Pept 3730 H, PT 13.8 H, INR 1.32 H, CBC w Diff NO MAN DIFF REQ, RBC 2.88 L, MCV 84.1, MCH 28.2, RDW 14.8 H, MPV 8.4, Gran % 72.9, Lymphocytes % 14.1 L, Monocytes % 9.0, Eosinophils % 3.4, Basophils % 0.6, Absolute Granulocytes 8.2 H, Absolute Lymphocytes 1.6, Absolute Monocytes 1.0 H, Absolute Eosinophils 0.4, Absolute Basophils 0.1, PUBS MCHC 33.6 Recent Imaging Studies: Tely-SR with rare PVC's Assessment/Plan Assessment/Plan Assessment/Plan 70 year old female with h/o CAD, LCX stentx2 in 2013, HTN, dyslipidemia, DM, CRI , CHF (last cath in August 2016 revealing non obstructive CAD, increased LVEDP), anemia developed hypoxic respiratory failure 24 hours after elective left TKR. Etiology likely due to HFpEF but she also spiked fever and WBC is elevated, CXR concerning for pulmonary edema and LLL infiltrate. She is overall improvede clinically with good response to iv diuretics Plan: Lasix 80 mg iv bid as long as renal function remains stable (creat below 2.0) negative fluid balance troponin x3 q8 hours so far flat, doubt ACS continue warfarin ASA 81 mg qd continue other BP meds monitor renal function, blood count F/U blood cultures continue Unasyn today CPAP at night Repeat CXR tomorrow-if cleared CHF and no infiltrate ?D/C Unasyn daily weights Continue telemetry? Yes
[2016-12-10 07:52] LABS: ABSOLUTE BASOPHIL COUNT 0.1 /CUMM (0.0-0.2); ABSOLUTE EOSINOPHIL COUNT 0.1 /CUMM (0.0-0.7); ABSOLUTE GRANULOCYTE CT 9.5 /CUMM (1.4-6.5); ABSOLUTE LYMPH COUNT 1.1 /CUMM (1.2-3.4); ABSOLUTE MONOCYTE COUNT 1.2 /CUMM (0.10-0.60); BASOPHIL % 0.6 % (0.0-2.0); EOSINOPHIL % 0.5 % (0-5); GRANULOCYTE % 79.7 % (42.2-75.2); HEMATOCRIT 22.3 % (37-47); MEAN CORPUSCULAR HGB 28.3 PG (27.0-31.0); MEAN CORPUSCULAR HGB CONC 33.4 G/DL (33.0-37.0); MEAN CORPUSCULAR VOLUME 84.8 FL (81.0-99.0); MEAN PLATELET VOLUME 9.7 FL (7.4-10.4); PLATELET COUNT 148 /CUMM (130-400); RBC DISTRIBUTION WIDTH 15.1 % (11.5-14.5); RED BLOOD CELL CT 2.63 /CUMM (4.20-5.40); WHITE BLOOD CELL COUNT 11.9 /CUMM (4.8-10.8)
--- NOTE | 2016-12-10 08:12 | PN- Pulmonary ---
Subjective HPI/Critical Care Issues: Patient shortness breath is markedly improved she is on her baseline CPAP for sleep apnea oxygen requirements remain elevated. She is affectively diuresing Objective Current Medications: Current Medications Sig/Larissa Start time Last Medication Dose Route Stop Time Status Admin Al Hydroxide/Mg 30 ML Q6P PRN 12/07 1445 AC 12/08 Hydroxide PO 1750 Albuterol Sulfate 2 PUF Q4-6 PRN PRN 12/07 1445 AC INH Amlodipine Besylate 5 MG DAILY 12/07 1000 AC 12/09 PO 0953 Ampicillin Sodium/ 1,500 MG Q12H 12/09 1700 AC 12/10 Sulbactam Sodium IV 0543 Sodium Chloride 100 ML Aspirin Buffered 81 MG DAILY 12/09 1536 AC 12/09 PO 1723 Budesonide/ 2 PUF BID 12/07 2200 AC 12/09 Formoterol Fumarate INH 2150 Bumetanide 2 MG DAILY 12/07 1000 DC 12/09 PO 0951 Carvedilol 25 MG BID 12/07 1000 AC 12/09 PO 2150 Docusate Sodium 100 MG BID 12/08 1000 AC 12/09 PO 2150 Duloxetine HCl 60 MG DAILY 12/08 1000 AC 12/09 PO 0953 Furosemide 80 MG BID 12/09 2200 AC 12/09 IV 2219 Furosemide 40 MG ONCE ONE 12/09 1830 DC 07/ IV 12/09 1831 1833 Furosemide 40 MG ONCE ONE 12/09 1430 DC 07/ IV 07/ 1431 1425 Furosemide 20 MG ONCE ONE 12/09 1245 CAN IV 12/09 1246 Furosemide 20 MG ONCE ONE 12/09 1030 DC 07/ IV 07/ 1031 1041 Furosemide 20 MG ONCE ONE 12/09 1015 DC 07/ IV 07/05 1016 1003 Hydralazine HCl 50 MG TID 12/08 1000 AC 12/09 PO 2150 Insulin Aspart 0 TIDAC 12/07 1200 AC 12/09 SC 1734 Insulin Detemir 20 UNITS AT BEDTIME 12/07 2200 AC 12/09 SC 2150 Isosorbide 60 MG DAILY 12/07 1000 AC 12/09 Mononitrate PO 0949 Levothyroxine Sodium 0.1 MG DAILY AC 12/07 0700 AC 12/10 PO 0647 Losartan Potassium 50 MG DAILY 12/08 1000 AC 12/09 PO 0953 Morphine Sulfate 2 MG Q3P PRN 12/07 1445 AC IV Morphine Sulfate 4 MG Q3P PRN 12/07 144 AC IV Ondansetron HCl 4 MG Q6P PRN 12/07 144 AC IV Oxycodone/ 1 TAB Q4P PRN 12/07 1445 AC 12/08 Acetaminophen PO 0553 Oxycodone/ 2 TAB Q4P PRN 12/07 1445 AC 12/09 Acetaminophen PO 2332 Polyethylene Glycol 17 GM DAILY 12/08 1000 AC 12/09 PO 0953 Senna/Docusate Sodium 2 TAB AT BEDTIME NEED.. 12/07 1445 AC 12/09 PO 2332 Warfarin Sodium 5 MG COUMADIN 1700 ONE 12/09 1700 DC 12/09 PO 12/09 1701 1723 Vital Signs & I&O Last 24 Hrs of Vitals and I&O: Vital Signs Date Time Temp Pulse Resp B/P B/P Pulse O2 O2 Flow FiO2 Mean Ox Delivery Rate 12/10 0651 97.9 71 20 158/60 92 CPAP 12/10 0000 CPAP 12/09 2315 99.0 74 22 140/72 95 12/09 2231 91 CPAP 12/09 2150 80 140/78 12/09 2150 80 140/78 12/09 2030 98.6 12/09 2000 94 Part 60% ReBreather 12/09 1800 93 Nasal 80% Cannula 12/09 1438 94 Part 60% ReBreather 12/09 1400 Part 60% ReBreather 12/09 1339 101.0 73 20 168/78 91 Part 60% ReBreather 12/09 1256 100.2 75 20 146/70 95 Part ReBreather 12/09 1015 95 Part 60% ReBreather 12/09 0953 75 172/62 12/09 0953 75 172/62 12/09 0953 75 172/62 12/09 0952 75 172/62 / 0949 75 172/62 Intake & Output 12/10 1600 0706 0800 12/10 0000 Intake Total 100 220 Output Total 600 300 Balance -500 -80 Intake, IV 100 Intake, Oral 100 120 Output, Urine 600 300 0 for chest shows better air entry and diminished crackles cardiac exam shows regular S1 and S2 abdomen is soft nontender Impression/Plan Impression/Plan Impression/Plan: 71-year-old woman with history of coronary artery disease congestive heart failure hypertension and obstructive sleep apnea status post knee replacement has developed acute pulmonary edema. She has hypoxic respiratory failure secondary to pulmonary edema. Other considerations such as aspiration pneumonia seems less likely though she does have a leukocytosis which may be stress related. Patient has cardiogenic pulmonary edema elevated BNP and his improved status post diuresis Recommendations: Continue negative fluid balance Taper FiO2 his saturations allow repeat chest x- ray. If infiltrates are cleared with diuresis would consider DC antibiotics. Optimize anticoagulation
[2016-12-10 08:34] LABS: PT 19.3 SEC (9.4-12.5)
[2016-12-10 14:47] VITALS: BP 126/52
--- NOTE | 2016-12-10 15:53 | Event Note ---
Event Note Event Note: 70 year old female with PMH OF CAD, LCX stentx2 in 2013, HTN, dyslipidemia, DM, CRI, CHF (last cath in August 2016 revealing non obstructive CAD, increased LVEDP ) patient developed acute hypoxic respiratory failure 24 hours after elective left total knee replacemt , most likely due to fluid overload after the surgery, patient also spiked fever of 101 and high WBCs of 11.9 which might be due to aspiration pnumonia after her surgery or other underlying infectious process. she was started on Lasix IV 80 mg BID with marked improvement of her SOB. Patient was also started on Unasyn 1,500 mg Q12 . will keep to follow up on her temp,WBCs count, I&O and her BEP, will repeat her CXR tomorrw patient also developed anemia , her hgb is 7.4, she will be given 1 unit or PRBCs slowly this afternoon, will follow up her CBC tomorrow. the patient will monitored in telelmetry unit.
[2016-12-10 23:50] VITALS: BP 162/64
[2016-12-11 01:35] VITALS: BP 150/78
[2016-12-11 04:50] LABS: ABSOLUTE BASOPHIL COUNT 0.1 /CUMM (0.0-0.2); ABSOLUTE EOSINOPHIL COUNT 0.7 /CUMM (0.0-0.7); ABSOLUTE GRANULOCYTE CT 8.7 /CUMM (1.4-6.5); ABSOLUTE LYMPH COUNT 1.4 /CUMM (1.2-3.4); ABSOLUTE MONOCYTE COUNT 1.2 /CUMM (0.10-0.60); BASOPHIL % 1.2 % (0.0-2.0); EOSINOPHIL % 5.5 % (0-5); HEMATOCRIT 25.4 % (37-47); MEAN CORPUSCULAR HGB 28.4 PG (27.0-31.0); MEAN CORPUSCULAR HGB CONC 33.8 G/DL (33.0-37.0); MEAN PLATELET VOLUME 8.4 FL (7.4-10.4); PLATELET COUNT 179 /CUMM (130-400); RBC DISTRIBUTION WIDTH 15.6 % (11.5-14.5); RED BLOOD CELL CT 3.03 /CUMM (4.20-5.40); WHITE BLOOD CELL COUNT 12.1 /CUMM (4.8-10.8)
[2016-12-11 04:54] LABS: PT 23.6 SEC (9.4-12.5)
--- NOTE | 2016-12-11 07:11 | PN- Housestaff ---
See Addendum Subjective Follow-up For: -Acute on chronic CHF exacerbation(acute pulmonary edema) -Possible evolving pneumonia Complaints: SOB Tele-Events Since Last Visit: not on tele monitor Subjective: I have personally seen and examined GERALD Green, this morning she was lying down in bed in no acute distress , she was on nasal oxygen ..... l, she reported feeling less SOB Review of Systems Constitutional: Denies: no symptoms. EENTM: Denies: no symptoms. Cardiovascular: Denies: no symptoms. Respiratory: Reports: short of breath. Gastrointestinal: Denies: no symptoms. Genitourinary: Denies: no symptoms. Objective Last 24 Hrs of Vital Signs/I&O Vital Signs Date Time Temp Pulse Resp B/P B/P Pulse O2 O2 Flow FiO2 Mean Ox Delivery Rate 12/11 0715 100.5 66 18 142/78 93 Venti Mask 55% 12/11 0135 150/78 12/11 0000 Venti Mask 55% 12/10 2350 99.0 68 18 162/64 92 Venti Mask 55% 12/10 2206 76 162/64 12/10 2205 73 162/64 12/10 1725 122/60 12/10 1600 Venti Mask 55% 12/10 1447 97.3 62 20 126/52 93 Venti Mask 5.0L 12/10 0932 93 Venti Mask 55% 12/10 0903 93 Venti Mask 55% Intake & Output 12/11 1600 07/07 0800 12/11 0000 Intake Total 220 120 Output Total 600 400 Balance -380 -280 Intake, IV 100 Intake, Oral 120 120 Output, Urine 600 400 Physical Exam General Appearance: Alert, Oriented X3, Cooperative, No Acute Distress, fever 100.5 Skin: No Rashes, No Breakdown, No Significant Lesion Skin Temp/Moisture Exam: Warm/Dry Sepsis Skin Exam (color): Normal for Ethnicity HEENT: Atraumatic, PERRLA Neck: Supple, neck vains were hard to be assessed due to the patient body habitus and posture Cardiovascular: Regular Rate, Normal S1, Normal S2, No Murmurs Lungs: few scattered crepitiation on both lung kern Abdomen: Normal Bowel Sounds, Soft, No Tenderness Neurological: Normal Speech Extremities: 2+ edema Current Medications: Current Medications Sig/Larissa Start time Last Medication Dose Route Stop Time Status Admin Acetaminophen 650 MG Q6P PRN 12/10 1045 AC PO Acetaminophen 1,000 MG Q8P PRN 07 1045 AC N/A 1 UNIT IV Al Hydroxide/Mg 30 ML Q6P PRN 07/ 1445 AC 12/08 Hydroxide PO 1750 Albuterol Sulfate 2 PUF Q4-6 PRN PRN 07 1445 AC INH Amlodipine Besylate 5 MG DAILY 12/07 1000 AC 12/10 PO 0816 Ampicillin Sodium/ 1,500 MG Q12H 12/09 1700 AC 12/11 Sulbactam Sodium IV 0440 Sodium Chloride 100 ML Aspirin Buffered 81 MG DAILY 12/09 1536 AC 12/10 PO 0815 Budesonide/ 2 PUF BID 12/07 2200 AC 12/10 Formoterol Fumarate INH 2205 Carvedilol 25 MG BID 12/07 1000 AC 12/10 PO 2205 Docusate Sodium 100 MG BID 12/08 1000 AC 12/10 PO 2206 Duloxetine HCl 60 MG DAILY 12/08 1000 AC 12/10 PO 0818 Furosemide 40 MG ONCE ONE 12/10 2044 DC 12/10 IV 12/10 Furosemide 80 MG BID 12/09 2200 AC 12/10 IV 0818 Hydralazine HCl 50 MG TID 12/08 1000 AC 12/10 PO 2206 Insulin Aspart 0 TIDAC 12/07 1200 AC 12/10 SC 1735 Insulin Detemir 20 UNITS AT BEDTIME 12/07 2200 AC 12/10 SC 2205 Isosorbide 60 MG DAILY 12/07 1000 AC 12/10 Mononitrate PO 0816 Levothyroxine Sodium 0.1 MG DAILY AC 12/07 0700 AC 12/11 PO 0535 Losartan Potassium 50 MG DAILY 12/08 1000 AC 12/10 PO 0815 Morphine Sulfate 2 MG Q3P PRN 12/07 1445 DC IV Morphine Sulfate 4 MG Q3P PRN 12/07 1445 DC IV Ondansetron HCl 4 MG Q6P PRN 12/07 1445 AC IV Oxycodone/ 1 TAB Q4P PRN 07 1445 DC 12/08 Acetaminophen PO 0553 Oxycodone/ 2 TAB Q4P PRN 07 1445 DC 12/10 Acetaminophen PO 0814 Polyethylene Glycol 17 GM DAILY 12/08 1000 AC 12/10 PO 0814 Senna/Docusate Sodium 2 TAB AT BEDTIME NEED.. 12/07 1445 AC 12/09 PO 2332 Warfarin Sodium 5 MG COUMADIN 1700 ONE 12/10 1700 DC 12/10 PO 12/10 1701 1726 Last 24 Hrs of Lab/Jose Alejandro Results Last 24 Hrs of Labs/Mics: Laboratory Tests 12/11/16 0430: Anion Gap 12, Estimated GFR 19 L, BUN/Creatinine Ratio 22.8, PT 23.6 H, INR 2.27 H, CBC w Diff NO MAN DIFF REQ, RBC 3.03 L, MCV 84.0, MCH 28.4, RDW 15.6 H, MPV 8.4, Gran % 72.0, Lymphocytes % 11.4 L, Monocytes % 9.9 H, Eosinophils % 5.5 H, Basophils % 1.2, Absolute Granulocytes 8.7 H, Absolute Lymphocytes 1.4, Absolute Monocytes 1.2 H, Absolute Eosinophils 0.7, Absolute Basophils 0.1 , PUBS MCHC 33.8 Assessment/Plan Assessment: 70 year old lady with PMH of CAD, LCX stent x 2 in 2013, HTN, dyslipidemia, DM, CRI, CHF (last cath in August 2016 revealing non obstructive CAD, increased LVEDP ), anemia. patient developed acute hypoxic respiratory failure 24 hours after elective left total knee replacemt , most likely due to fluid overload after the surgery, patient also spiked fever of 101 and high WBCs of 11.2 which might be due to aspiration pnumonia after her surgery or other underlying infectious process. # Acute on chronic CHF exacerbation(acute pulmonary edema): -most likely due to fluid overload after her surgery, today the patient reports feeling less SOB -will hold lasix today and moitor fluid balance as per Dr Simms recommendation as her cr today is 2.5 - continue to monitor her I & o (today's Intake is 220 , Output is 600) -daily weights -continue to moitor in telemetry -monitor BEP, BUN and Cr, - today BUN 57 , Cr 2.5 # possible aspiraton pneumonia: -today the patient spiked fever of 100.5 and her WBC was 12.1 -still have scattered wheezes and crepitation -continue Unasyn 1,500 mg Q12 today is day 3, -CXR today showed slight improvement of her pulmonary edema than 12/09/16 -TRC and Incentive spirometry -titrate her oxygen requirements down, to maintain her saturations greater than 92% as per Dr Preciado recomm. -sputum culture, urine Legionella and strep pneumonia pending as per Dr Preciado recomm -Continue CPAP at night # Anemia: -patient developed anemia after her surgery, her hgb was 7.4 on 12/10 , - she was given 1 unit or PRBCs yesterday,her hgb today is 8.6. continue to monitor her cbc #Total left knee arthroplasty -Continue management as per surgical team. -Continue Coumadin as per surgery recommendations. continue to check her INR, today it was 2.27 pt is full code Problem List: 1. Acute on chronic congestive heart failure 2. Pneumonia 3. Anemia Pain Ratin Pain Location: n/a Pain Goal: Remain pain free Pain Plan: acetaminophen Tomorrow's Labs & Rationales: cbc: anemai, infection BEP: pt on lasix INR: pt on coumadin DVT/Prophylaxis: pharmacological
[2016-12-11 07:15] VITALS: BP 142/78
--- NOTE | 2016-12-11 08:29 | PN- Cardiology ---
Subjective Subjective: Feels good, breathing improved. Objective Vital Signs and I&Os Vital Signs Date Time Temp Pulse Resp B/P B/P Pulse O2 O2 Flow FiO2 Mean Ox Delivery Rate 12/11 0715 100.5 66 18 142/78 93 Venti Mask 55% 12/11 0135 150/78 12/11 0000 Venti Mask 55% 12/10 2350 99.0 68 18 162/64 92 Venti Mask 55% 12/10 2206 76 162/64 12/10 2205 73 162/64 12/10 1725 122/60 12/10 1600 Venti Mask 55% 12/10 1447 97.3 62 20 126/52 93 Venti Mask 5.0L 12/10 0932 93 Venti Mask 55% 12/10 0903 93 Venti Mask 55% Intake & Output 12/11 0800 12/11 0000 12/10 1600 12/10 0800 12/10 0000 Intake Total 220 120 590 100 220 Output Total 600 400 100 600 300 Balance -380 -280 490 -500 -80 Intake, Blood 350 Product Intake, IV 100 100 Intake, Oral 120 120 240 100 120 Output, Urine 600 400 100 600 300 Patient 170 lb Weight Physical Exam: Neck-JVP normal, no bruit Lungs-clear bilaterally posteriorly, few exspiratory rhonchi anteriorly Heart-S1S2 regular, no murmur Abdomen-soft, not tender, BS+ Extr-no edema, 2+ pulses Current Medications: Current Medications Sig/Larissa Start time Last Medication Dose Route Stop Time Status Admin Acetaminophen 650 MG Q6P PRN 12/10 1045 AC PO Acetaminophen 1,000 MG Q8P PRN 12/10 1045 AC N/A 1 UNIT IV Al Hydroxide/Mg 30 ML Q6P PRN 12/07 1445 AC 12/08 Hydroxide PO 1750 Albuterol Sulfate 2 PUF Q4-6 PRN PRN 12/07 1445 AC INH Amlodipine Besylate 5 MG DAILY 12/07 1000 AC 12/10 PO 0816 Ampicillin Sodium/ 1,500 MG Q12H 12/09 1700 AC 12/11 Sulbactam Sodium IV 0440 Sodium Chloride 100 ML Aspirin Buffered 81 MG DAILY 12/09 1536 AC 12/10 PO 0815 Budesonide/ 2 PUF BID 12/07 2200 AC 12/10 Formoterol Fumarate INH 2205 Carvedilol 25 MG BID 12/07 1000 AC 12/10 PO 2205 Docusate Sodium 100 MG BID 12/08 1000 AC 12/10 PO 220 Duloxetine HCl 60 MG DAILY 12/08 1000 AC 12/10 PO 18 Furosemide 40 MG ONCE ONE 12/10 2044 DC 12/10 IV 12/10 Furosemide 80 MG BID 12/09 2199 AC 12/10 IV 08 Hydralazine HCl 50 MG TID 12/08 1000 AC 12/10 PO 220 Insulin Aspart 0 TIDAC 12/07 1200 AC 12/10 SC 1735 Insulin Detemir 20 UNITS AT BEDTIME 12/07 2199 AC 12/10 SC 2205 Isosorbide 60 MG DAILY 12/07 1000 AC 12/10 Mononitrate PO 0816 Levothyroxine Sodium 0.1 MG DAILY AC 12/07 07 AC 12/11 PO 0535 Losartan Potassium 50 MG DAILY 12/08 1000 AC 12/10 PO 0815 Morphine Sulfate 2 MG Q3P PRN 12/07 1445 DC IV Morphine Sulfate 4 MG Q3P PRN 12/07 1445 DC IV Ondansetron HCl 4 MG Q6P PRN 12/07 1445 AC IV Oxycodone/ 1 TAB Q4P PRN 12/07 1445 DC 12/08 Acetaminophen PO 0553 Oxycodone/ 2 TAB Q4P PRN 12/07 1445 DC 12/10 Acetaminophen PO 0814 Polyethylene Glycol 17 GM DAILY 12/08 1000 AC 12/10 PO 0814 Senna/Docusate Sodium 2 TAB AT BEDTIME NEED.. 12/07 1445 AC 12/09 PO 2332 Warfarin Sodium 5 MG COUMADIN 1700 ONE 12/10 1700 DC 12/10 PO 12/10 1701 1726 Results Last 48 Hrs of Labs/Mics: Laboratory Tests 12/11/16 0430: Anion Gap 12, Estimated GFR 19 L, BUN/Creatinine Ratio 22.8, PT 23.6 H, INR 2.27 H, CBC w Diff NO MAN DIFF REQ, RBC 3.03 L, MCV 84.0, MCH 28.4, RDW 15.6 H, MPV 8.4, Gran % 72.0, Lymphocytes % 11.4 L, Monocytes % 9.9 H, Eosinophils % 5.5 H, Basophils % 1.2, Absolute Granulocytes 8.7 H, Absolute Lymphocytes 1.4, Absolute Monocytes 1.2 H, Absolute Eosinophils 0.7, Absolute Basophils 0.1 , PUBS MCHC 33.8 12/10/16 0615: Troponin I Cancelled 12/10/16 0615: Anion Gap 14, Estimated GFR 25 L, BUN/Creatinine Ratio 25.0, Troponin I 0.04, PT 19.3 H, INR 1.85 H, CBC w Diff NO MAN DIFF REQ, RBC 2.63 L, MCV 84.8, MCH 28.3, RDW 15.1 H, MPV 9.7, Gran % 79.7 H, Lymphocytes % 9.5 L, Monocytes % 9.7 H, Eosinophils % 0.5, Basophils % 0.6, Absolute Granulocytes 9.5 H, Absolute Lymphocytes 1.1 L, Absolute Monocytes 1.2 H, Absolute Eosinophils 0.1 , Absolute Basophils 0.1, PUBS MCHC 33.4 12/10/16 0020: Troponin I 0.05 12/09/16 1500: Troponin I 0.03 Assessment/Plan Assessment/Plan Assessment/Plan 70 year old female with h/o CAD, LCX stentx2 in 2013, HTN, dyslipidemia, DM, CRI , CHF (last cath in August 2016 revealing non obstructive CAD, increased LVEDP), anemia developed hypoxic respiratory failure 24 hours after elective left TKR. Etiology likely due to HFpEF but she also spiked fever and WBC is elevated, CXR concerning for pulmonary edema and LLL infiltrate. She is overall improvede clinically with good response to iv diuretics. Creatilnine increased today likely due to diuresis. Anemia stable after blood transfusion. Still with low grade fever and elevated WBC, urine and blood cultures negative Plan: hold Lasix today monitor fluid balance PT continue warfarin ASA 81 mg qd continue other BP meds monitor renal function, blood count continue Unasyn CPAP at night Repeat CXR daily weights Continue telemetry? No
--- NOTE | 2016-12-11 08:53 | PN- Pulmonary ---
DAIJA GUTIERREZ,ISMAIL 12/11/16 0853: Subjective HPI/Critical Care Issues: Temperature 100.5 this morning, hemodynamically stable, saturating lower 90s on Ventimask 55%. Patient reported that her dyspnea has significantly improved. She is complaining that the Ventimask is making noise. She denies any other current active complaints. No acute overnight events were reported. Objective Current Medications: Current Medications Sig/Larissa Start time Last Medication Dose Route Stop Time Status Admin Acetaminophen 650 MG Q6P PRN 12/10 1045 AC PO Acetaminophen 1,000 MG Q8P PRN 12/10 1045 AC N/A 1 UNIT IV Al Hydroxide/Mg 30 ML Q6P PRN 12/07 1445 AC 12/08 Hydroxide PO 1750 Albuterol Sulfate 2 PUF Q4-6 PRN PRN 12/07 1445 AC INH Amlodipine Besylate 5 MG DAILY 12/07 1000 AC 12/10 PO 0816 Ampicillin Sodium/ 1,500 MG Q12H 12/09 1700 AC 12/11 Sulbactam Sodium IV 0440 Sodium Chloride 100 ML Aspirin Buffered 81 MG DAILY 12/09 1536 AC 12/10 PO 0815 Budesonide/ 2 PUF BID 12/07 2200 AC 12/10 Formoterol Fumarate INH 2205 Carvedilol 25 MG BID 12/07 1000 AC 12/10 PO 2205 Docusate Sodium 100 MG BID 12/08 1000 AC 12/10 PO 2206 Duloxetine HCl 60 MG DAILY 12/08 1000 AC 12/10 PO 0818 Furosemide 40 MG ONCE ONE 12/10 2044 DC 12/10 IV 12/10 Furosemide 80 MG BID 12/09 2200 AC 12/10 IV 0818 Hydralazine HCl 50 MG TID 12/08 1000 AC 12/10 PO 2206 Insulin Aspart 0 TIDAC 12/07 1200 AC 12/10 SC 1735 Insulin Detemir 20 UNITS AT BEDTIME 12/07 2200 AC 12/10 SC 2205 Isosorbide 60 MG DAILY 12/07 1000 AC 12/10 Mononitrate PO 0816 Levothyroxine Sodium 0.1 MG DAILY AC 12/07 0700 AC 12/11 PO 0535 Losartan Potassium 50 MG DAILY / 1000 AC 12/10 PO 0815 Morphine Sulfate 2 MG Q3P PRN 12/07 1445 DC IV Morphine Sulfate 4 MG Q3P PRN 12/07 1445 DC IV Ondansetron HCl 4 MG Q6P PRN 12/07 1445 AC IV Oxycodone/ 1 TAB Q4P PRN 12/07 1445 DC 12/08 Acetaminophen PO 0553 Oxycodone/ 2 TAB Q4P PRN 12/07 1445 DC 12/10 Acetaminophen PO 0814 Polyethylene Glycol 17 GM DAILY 12/08 1000 AC 12/10 PO 0814 Senna/Docusate Sodium 2 TAB AT BEDTIME NEED.. 12/07 1445 AC 12/09 PO 2332 Warfarin Sodium 5 MG COUMADIN 1700 ONE 12/10 1700 DC 12/10 PO 12/10 1701 1726 Vital Signs & I&O Last 24 Hrs of Vitals and I&O: Vital Signs Date Time Temp Pulse Resp B/P B/P Pulse O2 O2 Flow FiO2 Mean Ox Delivery Rate 12/11 714 100.5 66 18 142/78 93 Venti Mask 55% 12/11 0135 150/78 12/11 0000 Venti Mask 55% 12/10 2350 99.0 68 18 162/64 92 Venti Mask 55% 12/10 2206 76 162/64 12/10 2205 73 162/64 12/10 1725 122/60 12/10 1600 Venti Mask 55% 12/10 1447 97.3 62 20 126/52 93 Venti Mask 5.0L 12/10 0932 93 Venti Mask 55% Intake & Output 12/11 1600 12/11 0800 12/11 0000 Intake Total 220 120 Output Total 600 400 Balance -380 -280 Intake, IV 100 Intake, Oral 120 120 Output, Urine 600 400 Exam General Appearance: well developed/nourished, no apparent distress, alert, awake , comfortable Head: atraumatic, normal appearance Ears, Nose, Throat: normal pharynx Respiratory: normal breath sounds, chest non-tender, no respiratory distress, Scattered wheezing without other additional sounds, suffincient air entry over lung base bilaterally Cardiovascular: regular rate/rhythm, nl S/S2 with no MRGs Abdomen: soft, non-tender Extremities: no edema Results Last 24 Hrs of Lab Results: Laboratory Tests 12/11/16 0430: Anion Gap 12, Estimated GFR 19 L, BUN/Creatinine Ratio 22.8, PT 23.6 H, INR 2.27 H, CBC w Diff NO MAN DIFF REQ, RBC 3.03 L, MCV 84.0, MCH 28.4, RDW 15.6 H, MPV 8.4, Gran % 72.0, Lymphocytes % 11.4 L, Monocytes % 9.9 H, Eosinophils % 5.5 H, Basophils % 1.2, Absolute Granulocytes 8.7 H, Absolute Lymphocytes 1.4, Absolute Monocytes 1.2 H, Absolute Eosinophils 0.7, Absolute Basophils 0.1 , PUBS MCHC 33.8 Impression/Plan Impression/Plan Impression/Plan: 71-year-old female with a past medical history of diabetes, coronary artery disease, CKD, chronic diastolic heart failure and obstructive sleep apnea with mild COPD who presented with acute hypoxemic respiratory failure 24 hours after elective left TKR. Chest x-ray showed pulmonary edema and possible pneumonia. She is being treated for acute diastolic heart failure exacerbation with IV Lasix. Patient is afebrile with leukocytosis and chest x-ray suggestive of infiltrate for which she received IV Unasyn for a possible aspiration pneumonia. Creatilnine increased today likely due to diuresis. Anemia stable post blood transfusion. 1.Acute hypoxic respiratory failure 2.Obstructive sleep apnea 3.Diastolic heart failure exacerbation 4.Anemia status post blood transfusion 5.Left TKR 6.DM, CAD, LCX stentx2 in 2013, CKD. Plan * TRC and Incentive spirometry * Send for sputum culture, urine Legionella and strep pneumonia * Continue IV Unasyn * Continue CPAP at night * Strict I's/O's and daily weights * Hold Lasix today and repeat chest x-ray as per historiographer * Follow renal function * Diabetic diet, DVT prophylaxis on warfarin, full code MAGO GUTIERREZ,Deneen PEARL 12/11/16 0934: Impression/Plan Impression/Plan Recommendations: I have personally seen and examined the patient, and agree with the resident's assessment plan as detailed above. We will follow the plan of care. The patient will be changed over to high flow oxygen, and I asked respiratory to titrate her oxygen requirements down, to maintain her saturations greater than 92%. We will continue to follow along with you and provide further recommendations as necessary.
--- NOTE | 2016-12-11 10:59 | RADIOLOGY REPORT ---
EXAMINATION: XR PORTABLE CHEST CLINICAL INFORMATION: Shortness of breath. COMPARISON: 12/09/2016 TECHNIQUE: Portable frontal view of the chest was obtained. FINDINGS: Cardiomegaly and congested pulmonary vessels. Patchy groundglass opacities in both lobes have slightly decreased. No overt pleural effusion. No pneumothorax or other significant interval change. IMPRESSION: Pulmonary edema has slightly improved compared to 12/09/2016.
--- NOTE | 2016-12-11 14:27 | Cons- Psychiatry ---
Psychiatric Consult Date of Consult: 12/11/16 Reason for Consult: "Depression" History of Present Illness: Identifying Info: 71-year-old female presents to [facility] for Left total knee arthroplasty on 12/07/16. She subsequently experienced acute CHF exacerbation and required a longer than expected hospital stay. Seen today on Telemetry. CC: "It's been a little amrita actually" HPI: Patient reports "I had a major meltdown on Wednesday," endorsing severe confusion and high anxiety post surgery. She became paranoid regarding her and thought he was keeping her from moving to a house. This subsequently resolved. Patient reports for approximately the last 4-5 years she is experienced depression, stating "I can't quite get over this hump." She attributes this to her fpc and lack of mutual activities with her . She feels at present that she would benefit from having someone to discuss her issues with as well as an increase in her antidepressant medication. She would be agreeable to attending women's group at [facility]. Collateral obtained with permission from daughter Amber and Ed who were in hospital visiting. They report that the patient has been experiencing issues since the of her parents a few years ago which were subsequently made worse 1 year ago the of her older sister. She had become estranged from her sister after her parents and rebuild her relationship with her only to have it suddenly end when she of pancreatic cancer. They report that the patient has anger issues related to this. Her daughter reports she feels her mother is a "food addict," who uses food to cope with her feelings. They report she has she has had a difficult time with therapy in the past because she doesn' t want to confront her issues and his dropped out of individual therapy 3 separate times. PMH: Please see the H&P for a complete listing CHF, anemia Past Psych History: -Outpatient Most recently saw an Psychiatrist in [place] 1 year ago whose name she cannot recall. 3 previous unnamed therapists. -Inpatient Denies Family Psych History: Depression - Sister, mother Substance History Denies -Treatment Denies Family Substance History: Nephew -PSA, in recovery Social: . Born in [place], emigrated at age 4. Raised in intact family with 2 older sisters. 3 children and 6 grandchildren. 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 Currently active in her local pentecostalism, book club, and gardening club. Abuse/Trauma: Denies Current Home Psychotropic Medications: Cymbalta 60 mg daily - prescribed by PCP Current Hospital Psychotropic Medications: Med Duloxetine HCl 60 MG PO DAILY 12/08/16 1000 Allergies: Coded Allergies: povidone-iodine (From BETADINE) (RASH 12/04/16) ITCH PER ANTIBIOTIC ORDER SHEET OF 12/04/16 (SJS) soap (From BETADINE) (RASH 10/22/15) PARISH Inhibitors (Mild, COUGH 10/22/15) Current Medications: Current Medications Sig/Larissa Start time Last Medication Dose Route Stop Time Status Admin Acetaminophen 650 MG Q6P PRN 12/10 1045 AC PO Acetaminophen 1,000 MG Q8P PRN 12/10 1045 AC N/A 1 UNIT IV Al Hydroxide/Mg 30 ML Q6P PRN 12/07 1445 AC 12/08 Hydroxide PO 1750 Albuterol Sulfate 2 PUF Q4-6 PRN PRN 12/07 1445 AC INH Amlodipine Besylate 5 MG DAILY 12/07 1000 AC 12/11 PO 0922 Ampicillin Sodium/ 1,500 MG Q12H 12/09 1700 AC 12/11 Sulbactam Sodium IV 0440 Sodium Chloride 100 ML Aspirin Buffered 81 MG DAILY 12/09 1536 AC 12/11 PO 0921 Bisacodyl 10 MG ONCE ONE 12/11 1330 DC CO 12/11 1331 Bisacodyl 5 MG DAILY 12/11 1318 AC PO Budesonide/ 2 PUF BID 12/07 2200 AC 12/11 Formoterol Fumarate INH 0922 Carvedilol 25 MG BID 12/07 1000 AC 12/11 PO 0921 Docusate Sodium 100 MG BID 12/08 1000 AC 12/11 PO 0920 Duloxetine HCl 60 MG DAILY 12/08 1000 AC 12/11 PO 0920 Furosemide 40 MG ONCE ONE 12/105 DC 12/10 IV 12/106 205 Furosemide 80 MG BID 12/09 2200 DC 12/10 IV 0818 Hydralazine HCl 50 MG TID 12/08 1000 AC 12/11 PO 1040 Insulin Aspart 0 TIDAC 12/07 1200 AC 12/11 SC 1242 Insulin Detemir 20 UNITS AT BEDTIME 12/07 2200 AC 12/10 SC 2205 Isosorbide 60 MG DAILY 12/07 1000 AC 12/11 Mononitrate PO 0920 Levothyroxine Sodium 0.1 MG DAILY AC 12/07 0700 AC 12/11 PO 0535 Losartan Potassium 50 MG DAILY 12/08 1000 AC 12/11 PO 0920 Ondansetron HCl 4 MG Q6P PRN 12/07 1445 AC IV Polyethylene Glycol 17 GM DAILY 12/08 1000 AC 12/11 PO 0920 Senna/Docusate Sodium 2 TAB AT BEDTIME NEED.. 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 Substance Use/Abuse History Drug Use/Abuse Substances Used/Abused No Substance Abuse Treatment Substance Abuse Treatment Past Substance Abuse [place] No Assessment/Plan Mental Status Mental Status Exam: Mental Status Exam Presentation/Appearance: Cooperative with evaluation. [facility] gar. Orientation: x4 Sensorium: Awake and alert Eye contact: Appropriate Affect: Somewhat blunted but congruent with stated mood Mood: "Partially sad" Depression: endorses Anxiety: Denies Thought Content: - Denies SI/HI, AH/VH, PI. States and also believes they will not kill themselves. - Denies Hopeless/Helpless Thoughts Thought Process: Linear and goal directed Associations: Appropriate Speech: Normal tone and rate Judgment: Intact Insight: Intact Cognition: Memory: Endorses ST deficits Attention/Concentration: Intact Fund of Knowledge: Adequate Abstractions: Did not assess MMSE: Did not assess Brief ROS Gait: Impaired Sleep: Fair Appetite: Fair Energy: Low IADLs/ADLs: With assist at present Lab Results: Laboratory Tests 12/11/16 0430: Anion Gap 12, Estimated GFR 19 L, BUN/Creatinine Ratio 22.8, PT 23.6 H, INR 2.27 H, CBC w Diff NO MAN DIFF REQ, RBC 3.03 L, MCV 84.0, MCH 28.4, RDW 15.6 H, MPV 8.4, Gran % 72.0, Lymphocytes % 11.4 L, Monocytes % 9.9 H, Eosinophils % 5.5 H, Basophils % 1.2, Absolute Granulocytes 8.7 H, Absolute Lymphocytes 1.4, Absolute Monocytes 1.2 H, Absolute Eosinophils 0.7, Absolute Basophils 0.1 , PUBS MCHC 33.8 12/10/16 0615: Troponin I Cancelled 12/10/16 0615: Anion Gap 14, Estimated GFR 25 L, BUN/Creatinine Ratio 25.0, Troponin I 0.04, PT 19.3 H, INR 1.85 H, CBC w Diff NO MAN DIFF REQ, RBC 2.63 L, MCV 84.8, MCH 28.3, RDW 15.1 H, MPV 9.7, Gran % 79.7 H, Lymphocytes % 9.5 L, Monocytes % 9.7 H, Eosinophils % 0.5, Basophils % 0.6, Absolute Granulocytes 9.5 H, Absolute Lymphocytes 1.1 L, Absolute Monocytes 1.2 H, Absolute Eosinophils 0.1 , Absolute Basophils 0.1, [facility] [place] MCHC 33.4 12/10/16 0020: Troponin I 0.05 12/09/16 1500: Troponin I 0.03 12/09/16 0654: Anion Gap 10, Estimated GFR 30 L, BUN/Creatinine Ratio 27.1 H, Pro-B- Natriuretic Pept 3730 H, PT 13.8 H, INR 1.32 H, CBC w Diff NO MAN DIFF REQ, RBC 2.88 L, MCV 84.1, MCH 28.2, RDW 14.8 H, MPV 8.4, Gran % 72.9, Lymphocytes % 14.1 L, Monocytes % 9.0, Eosinophils % 3.4, Basophils % 0.6, Absolute Granulocytes 8.2 H, Absolute Lymphocytes 1.6, Absolute Monocytes 1.0 H, Absolute Eosinophils 0.4, Absolute Basophils 0.1, PUBS MCHC 33.6 Microbiology 12/09 1520 BLOOD: Blood Culture - RES 12/09 1500 BLOOD: Blood Culture - RES 12/09 1400 URINE ROUT: Urine Culture - COMP Diffential Diagnosis: Unspecified depressive disorder Rule out major depressive disorder Delirium due to anesthesia, resolved Impression: 71-year-old female presents with depressive symptoms in the context of knee surgery and hospital stay. She has a history of depression going back at least 5 years and has intermittently pursue treatment to mixed results. At present she is agreeable to seeing a psychiatric specific prescriber and joining a therapy group, specifically one of the women's therapy groups at [facility]. Additionally the patient recently recovered from an acute confusional state it would be prudent to promote sleep and avoid delirium triggers. Provisional Treatment Plan: 1. Please include the following inpatient discharge instructions: "Intake appointment scheduled for [facility] for December 22 at 3:15 PM with Angela Whalen LCSW. Clinic is at [address] [place] [address], please call [phone] with any questions." 2. Please increase Cymbalta to 90 mg daily. 3. Please continue to avoid benzodiazepines, opioid analgesics, and meds with strong anticholinergic properties as much as possible to prevent further confusion. 4. Please initiate the following nonpharmacologic interventions: -Avoid nursing and medical procedures during sleep hours whenever possible - Cluster at night interventions that must be completed as much as possible to minimize sleep disruption - Decrease noise patient area during sleeping hours - Reduce lighting at night - Ensure patient has any sensory aids close by that she regularly uses Thank you for including psychiatry in this case we will continue to follow.
[2016-12-11 17:00] VITALS: BP 142/84
[2016-12-12] VITALS: BP 138/70
[2016-12-12 07:35] VITALS: BP 132/62
[2016-12-12 08:37] LABS: PT 28.6 SEC (9.4-12.5)
[2016-12-12 08:40] LABS: ABSOLUTE BASOPHIL COUNT 0.1 /CUMM (0.0-0.2); ABSOLUTE GRANULOCYTE CT 6.7 /CUMM (1.4-6.5); ABSOLUTE LYMPH COUNT 1.3 /CUMM (1.2-3.4); ABSOLUTE MONOCYTE COUNT 0.9 /CUMM (0.10-0.60); BASOPHIL % 0.5 % (0.0-2.0); EOSINOPHIL % 10.4 % (0-5); GRANULOCYTE % 67.2 % (42.2-75.2); HEMATOCRIT 25.2 % (37-47); MEAN CORPUSCULAR HGB CONC 32.9 G/DL (33.0-37.0); MEAN PLATELET VOLUME 9.2 FL (7.4-10.4); PLATELET COUNT 202 /CUMM (130-400); RBC DISTRIBUTION WIDTH 15.9 % (11.5-14.5); RED BLOOD CELL CT 2.96 /CUMM (4.20-5.40); WHITE BLOOD CELL COUNT 9.9 /CUMM (4.8-10.8)
--- NOTE | 2016-12-12 09:28 | PN- Housestaff ---
MCKAY GUTIERREZ,LANRE 12/12/16 0928: Subjective Follow-up For: Acute on chronic CHF exacerbation(acute pulmonary edema) -Possible evolving pneumonia Complaints: SOB Tele-Events Since Last Visit: GM Subjective: I have personally seen and examined GERALD Green, this morning she was sitting in chair in no acute distress , she was on nasal oxygen , she reported feeling less SOB Review of Systems Constitutional: Denies: no symptoms. Objective Last 24 Hrs of Vital Signs/I&O Vital Signs Date Time Temp Pulse Resp B/P B/P Pulse O2 O2 Flow FiO2 Mean Ox Delivery Rate 12/13 927 130/70 12/12 926 130/70 12/12 0827 130/70 12/12 0916 132/62 12/12 0916 132/62 12/12 0826 94 Nasal 40% Cannula 12/12 0735 98.8 61 20 132/62 94 Nasal Cannula 12/12 0031 93 Nasal 50% Cannula 12/12 0000 98.5 76 18 138/70 93 Nasal Cannula 12/11 2302 94 Nasal 45% Cannula 12/11 2110 Nasal Cannula 12/11 2033 64 142/84 12/11 2032 64 142/84 12/11 1941 94 Nasal 45% Cannula 12/11 1704 94 Nasal Cannula 12/11 1700 98.9 69 20 142/84 96 Nasal Cannula 12/11 1634 96 Nasal 45% Cannula 12/11 1020 95 Nasal 45% Cannula Intake & Output 08 1600 07/08 0800 07/08 0000 Intake Total 450 240 Output Total 400 Balance 50 240 Intake, Oral 450 240 Output, Urine 400 Physical Exam General Appearance: Alert, Oriented X3, Cooperative, No Acute Distress Skin: No Rashes, No Breakdown, No Significant Lesion Skin Temp/Moisture Exam: Warm/Dry HEENT: Atraumatic, PERRLA, EOMI, Mucous Membr. moist/pink Neck: Supple Cardiovascular: Regular Rate, Normal S1, Normal S2, No Murmurs Lungs: SCATTERED CREPITATION Abdomen: Normal Bowel Sounds, Soft, No Tenderness Neurological: Normal Speech Extremities: BILATERAL 2+ PITTING EDEMA, MORE EDEMA AND REDNESS ON THE LEFT LEG Current Medications: Current Medications Sig/Larissa Start time Last Medication Dose Route Stop Time Status Admin Acetaminophen 650 MG .STK-MED ONE 12/11 144 DC PO 12/11 144 Acetaminophen 650 MG Q6P PRN 07 1045 AC 07 PO 1446 Acetaminophen 1,000 MG Q8P PRN 12/10 1045 AC N/A 1 UNIT IV Al Hydroxide/Mg 30 ML Q6P PRN 12/07 1445 AC 12/08 Hydroxide PO 1750 Albuterol Sulfate 2 PUF Q4-6 PRN PRN 12/07 1445 AC INH Amlodipine Besylate 5 MG DAILY 12/07 1000 AC 12/12 PO 0916 Ampicillin Sodium/ 1,500 MG Q12H 12/09 1700 AC 12/12 Sulbactam Sodium IV 0605 Sodium Chloride 100 ML Aspirin Buffered 81 MG DAILY 12/09 1536 AC 12/12 PO 0914 Bisacodyl 10 MG ONCE ONE 12/11 1330 DC FL 12/11 1331 Bisacodyl 5 MG DAILY 12/11 1318 AC 12/12 PO 0913 Budesonide/ 2 PUF BID 12/07 2200 AC 12/12 Formoterol Fumarate INH 0914 Carvedilol 25 MG BID 12/07 1000 AC 12/12 PO 0927 Docusate Sodium 100 MG BID 12/08 1000 AC 12/12 PO 0913 Duloxetine HCl 90 MG DAILY 12/12 1000 AC 12/12 PO 0913 Duloxetine HCl 60 MG DAILY 12/08 1000 DC 12/11 PO 0920 Furosemide 80 MG BID 12/09 2200 DC 12/10 IV 0818 Hydralazine HCl 50 MG TID 12/08 1000 AC 12/12 PO 0928 Insulin Aspart 0 TIDAC 12/07 1200 AC 12/11 SC 1242 Insulin Detemir 20 UNITS AT BEDTIME 12/07 2200 AC 12/11 SC 2230 Isosorbide 60 MG DAILY 12/07 1000 AC 12/12 Mononitrate PO 0927 Levothyroxine Sodium 0.1 MG DAILY AC 12/07 0700 AC 12/12 PO 0557 Losartan Potassium 50 MG DAILY 12/08 1000 AC 12/12 PO 0916 Magnesium Hydroxide 30 ML AT BEDTIME PRN 12/12 1000 UNVr PO Ondansetron HCl 4 MG Q6P PRN 12/07 1445 AC IV Polyethylene Glycol 17 GM DAILY 12/08 1000 AC 12/12 PO 0913 Senna/Docusate Sodium 2 TAB AT BEDTIME NEED.. 12/07 1445 AC 12/09 PO 2332 Warfarin Sodium 5 MG COUMADIN 1700 ONE 12/11 1700 DC 12/11 PO 12/11 1701 1629 Assessment/Plan Assessment: 70 year old lady with PMH of CAD, LCX stent x 2 in 2013, HTN, dyslipidemia, DM, CRI, CHF (last cath in August 2016 revealing non obstructive CAD, increased LVEDP ), anemia. patient developed acute hypoxic respiratory failure 24 hours after elective left total knee replacemt , most likely due to fluid overload after the surgery, patient also spiked fever of 101 and high WBCs of 11.2 which might be due to aspiration pnumonia after her surgery or other underlying infectious process. # Acute on chronic CHF exacerbation(acute pulmonary edema): -most likely due to fluid overload after her surgery, today the patient reports feeling less SOB -will hold lasix today and moitor fluid balance as per Dr Simms recommendation as her cr today is 2.1 - continue to monitor her I & o (today's Intake is 220 , Output is 600) -daily weights -continue to moitor in telemetry -monitor BEP, BUN and Cr, - today BUN 60, Cr 2.1 # possible aspiraton pneumonia: -today her WBC 9.9 -still have scattered wheezes and crepitation -continue Unasyn 1,500 mg Q12 today is day 4, -TRC and Incentive spirometry -titrate her oxygen requirements down, to maintain her saturations greater than 92% as per Dr Preciado recomm. -pending urine Legionella and strep pneumonia pending as per Dr Preciado recomm -Continue CPAP at night # Anemia: -patient developed anemia after her surgery, her hgb was 7.4 on 12/10 , - her hgb today is 8.3 -continue to monitor her cbc #Total left knee arthroplasty -Continue management as per surgical team. -Continue Coumadin as per surgery recommendations. continue to check her INR, today it was 2.75 # Depression: -Please increase Cymbalta to 90 mg daily as per psychiatry recommendation - will continue to avoid benzodiazepines, opioid analgesics, and meds with strong anticholinergic properties as much as possible to prevent further confusion, as per psych recomm pt is full code Problem List: 1. Acute on chronic congestive heart failure 2. Pneumonia 3. Anemia 4. Depression 5. S/P TKR (total knee replacement) Pain Ratin Pain Location: n/a Pain Goal: Remain pain free Pain Plan: acetaminophen Tomorrow's Labs & Rationales: cbc: anemai, infection BEP: pt on lasix INR: pt on coumadin DVT/Prophylaxis: pharmacological CHERYL YA 12/12/16 0939: Attending MD Review Statement Attending Statement Attending MD Statement: examined this patient, discuss w/resident/PA/BAKERY HELPER, agreed w/resident/PA/BAKERY HELPER, discussed with family, reviewed EMR data (avail), discussed with nursing, discussed with case mgmt, reviewed images, amended to note Attending Assessment/Plan: The patient was seen and discussed with house staff. Appreciate pulmonary and cardiology input. Now on high flow nasal oxygen. Lasix on hold at present. Low grade fever and WBC- will continue Unasyn. Continue to follow oxygen saturations , etc. Patient states that when ready to discharge would prefer home rather than STR. Will do TRC Nebs. Encourage incentive spiroemtry. Coumadin INR therapeutic, cont current care.
--- NOTE | 2016-12-12 11:16 | PN- Cardiology ---
Subjective Subjective: Brathing stable, no other complaints. Ambulates with mild knee pain Objective Vital Signs and I&Os Vital Signs Date Time Temp Pulse Resp B/P B/P Pulse O2 O2 Flow FiO2 Mean Ox Delivery Rate 12/13 927 130/70 12/12 926 130/70 12/12 0927 130/70 12/12 0916 132/62 12/12 0916 132/62 12/12 0826 94 Nasal 40% Cannula 12/12 0735 98.8 61 20 132/62 94 Nasal Cannula 12/12 0031 93 Nasal 50% Cannula 12/12 0000 98.5 76 18 138/70 93 Nasal Cannula 12/11 2302 94 Nasal 45% Cannula 12/11 2110 Nasal Cannula 12/11 2033 64 142/84 12/11 2032 64 142/84 12/11 1941 94 Nasal 45% Cannula 12/11 1704 94 Nasal Cannula 12/11 1700 98.9 69 20 142/84 96 Nasal Cannula 12/11 1634 96 Nasal 45% Cannula Intake & Output 12/12 1600 12/12 0000 12/11 1600 12/11 0812/11 0000 Intake Total 450 240 400 220 120 Output Total 400 600 600 400 Balance 50 240 -200 -380 -280 Intake, IV 100 Intake, Oral 450 240 400 120 120 Output, Urine 400 600 600 400 Physical Exam: Neck-JVP normal Lungs-few fine crackles at the left base, right is clear Heart-S1S2, regular, no murmur Abdomen-soft, not tender, BS+, no organomegaly Extr-no edema, 2+ pulses Current Medications: Current Medications Sig/Larissa Start time Last Medication Dose Route Stop Time Status Admin Acetaminophen 650 MG .STK-MED ONE 12/11 1447 DC PO 12/11 1448 Acetaminophen 650 MG Q6P PRN 12/10 1045 AC 12/11 PO 1446 Acetaminophen 1,000 MG Q8P PRN 12/10 1045 AC N/A 1 UNIT IV Al Hydroxide/Mg 30 ML Q6P PRN 12/07 1445 AC 12/08 Hydroxide PO 1750 Albuterol Sulfate 2 PUF Q4-6 PRN PRN 12/07 1445 AC INH Amlodipine Besylate 5 MG DAILY 12/07 1000 AC 12/12 PO 0916 Ampicillin Sodium/ 1,500 MG Q12H 12/09 1700 AC 12/12 Sulbactam Sodium IV 0605 Sodium Chloride 100 ML Aspirin Buffered 81 MG DAILY 12/09 1536 AC 12/12 PO 0914 Bisacodyl 10 MG ONCE ONE 12/11 1330 DC CO 12/11 1331 Bisacodyl 5 MG DAILY 12/11 1318 AC 12/12 PO 0913 Budesonide/ 2 PUF BID 12/07 2200 AC 12/12 Formoterol Fumarate INH 0914 Carvedilol 25 MG BID 12/07 1000 AC 12/12 PO 0927 Docusate Sodium 100 MG BID 12/08 1000 AC 12/12 PO 0913 Duloxetine HCl 90 MG DAILY 12/12 1000 AC 12/12 PO 0913 Duloxetine HCl 60 MG DAILY 12/08 1000 DC 12/11 PO 0920 Furosemide 80 MG BID 12/09 2200 DC 12/10 IV 0818 Hydralazine HCl 50 MG TID 12/08 1000 AC 12/12 PO 0928 Insulin Aspart 0 TIDAC 12/07 1200 AC 12/11 SC 1242 Insulin Detemir 20 UNITS AT BEDTIME 12/07 2200 AC 12/11 SC 2230 Isosorbide 60 MG DAILY 12/07 1000 AC 12/12 Mononitrate PO 0927 Levothyroxine Sodium 0.1 MG DAILY AC 12/07 0700 AC 12/12 PO 0557 Losartan Potassium 50 MG DAILY 12/08 1000 AC 12/12 PO 0916 Magnesium Hydroxide 30 ML ONE ONE 12/12 1015 DC PO 12/12 1016 Magnesium Hydroxide 30 ML AT BEDTIME PRN 12/12 1000 DC PO Ondansetron HCl 4 MG Q6P PRN 12/07 1445 AC IV Polyethylene Glycol 17 GM DAILY 12/08 1000 AC 12/12 PO 0913 Senna/Docusate Sodium 2 TAB AT BEDTIME NEED.. 12/07 1445 AC 12/09 PO 2332 Warfarin Sodium 5 MG COUMADIN 1700 ONE 12/11 1700 DC 12/11 PO 12/11 1701 1629 Results Last 48 Hrs of Labs/Mics: Laboratory Tests 12/12/16 0618: Anion Gap 12, Estimated GFR 23 L, BUN/Creatinine Ratio 28.6 H, PT 28.6 H, INR 2.75 H, CBC w Diff NO MAN DIFF REQ, RBC 2.96 L, MCV 85.0, MCH 28.0, RDW 15.9 H, MPV 9.2, Gran % 67.2, Lymphocytes % 12.9 L, Monocytes % 9.0, Eosinophils % 10.4 H, Basophils % 0.5, Absolute Granulocytes 6.7 H, Absolute Lymphocytes 1.3 , Absolute Monocytes 0.9 H, Absolute Eosinophils 1.0, Absolute Basophils 0.1, PUBS MCHC 32.9 L 12/11/16 0430: Anion Gap 12, Estimated GFR 19 L, BUN/Creatinine Ratio 22.8, PT 23.6 H, INR 2.27 H, CBC w Diff NO MAN DIFF REQ, RBC 3.03 L, MCV 84.0, MCH 28.4, RDW 15.6 H, MPV 8.4, Gran % 72.0, Lymphocytes % 11.4 L, Monocytes % 9.9 H, Eosinophils % 5.5 H, Basophils % 1.2, Absolute Granulocytes 8.7 H, Absolute Lymphocytes 1.4, Absolute Monocytes 1.2 H, Absolute Eosinophils 0.7, Absolute Basophils 0.1 , PUBS MCHC 33.8 Recent Imaging Studies: CXR-improved pulmonary edema Assessment/Plan Assessment/Plan Assessment/Plan 70 year old female with h/o CAD, LCX stentx2 in 2013, HTN, dyslipidemia, DM, CRI , CHF (last cath in August 2016 revealing non obstructive CAD, increased LVEDP), anemia developed hypoxic respiratory failure 24 hours after elective left TKR. Etiology likely due to HFpEF but she also spiked fever and WBC is elevated, CXR concerning for pulmonary edema and LLL infiltrate. She is overall improved clinically with good response to iv diuretics. Creatilnine improved today WBC, CXR improved Plan: hold Lasix today monitor fluid balance PT continue warfarin ASA 81 mg qd continue other BP meds monitor renal function, blood count continue Unasyn, change to po atb tomorrow CPAP at night if renal function stable, will restart bumetanide 2 mg po qd tomorrow Likely discharge on Wednesday Continue telemetry? No
--- NOTE | 2016-12-12 12:15 | ULTRASOUND REPORT ---
EXAMINATION: US TRIPLEX LOWER EXTREMITY, LEFT CLINICAL INFORMATION: Swelling left lower extremity. COMPARISON: None TECHNIQUE: Color-flow triplex imaging with spectral analysis and compression Doppler were performed on the lower extremity. FINDINGS: Respiratory variation, normal compression and augmented flow are noted throughout the left lower extremity. The visualized common femoral vein, superficial femoral vein, profunda femoral vein, popliteal vein and midcalf peroneal and posterior tibial venous segments show no evidence of deep venous thrombosis. There is no Cardoso's cyst. IMPRESSION: Normal triplex scan without evidence of deep venous thrombosis involving the lower extremity.
[2016-12-12 15:08] VITALS: BP 136/62
--- NOTE | 2016-12-12 15:26 | PN- Pulmonary ---
Subjective HPI/Critical Care Issues: The patient is awake and alert. She is feeling much improved. She is now on 4 lpm nasal cannula. Her lower extremities remain edematous. Her creatinine is down to 2.1 today. She offers no new complaints. Objective Current Medications: Current Medications Sig/Larissa Start time Last Medication Dose Route Stop Time Status Admin Acetaminophen 650 MG Q6P PRN 07 1045 AC 12/11 PO 1446 Acetaminophen 1,000 MG Q8P PRN 12/10 1045 AC N/A 1 UNIT IV Al Hydroxide/Mg 30 ML Q6P PRN 12/07 1445 AC 12/08 Hydroxide PO 1750 Albuterol Sulfate 2 PUF Q4-6 PRN PRN 12/07 1445 AC INH Amlodipine Besylate 5 MG DAILY 12/07 1000 AC 12/12 PO 0916 Ampicillin Sodium/ 1,500 MG Q12H 12/09 1700 AC 12/12 Sulbactam Sodium IV 0605 Sodium Chloride 100 ML Aspirin Buffered 81 MG DAILY 12/09 1536 AC 12/12 PO 0914 Bisacodyl 5 MG DAILY 12/11 1318 AC 12/12 PO 0913 Budesonide/ 2 PUF BID 12/07 2200 AC 12/12 Formoterol Fumarate INH 0914 Carvedilol 25 MG BID 12/07 1000 AC 12/12 PO 0927 Docusate Sodium 100 MG BID 12/08 1000 AC 12/12 PO 0913 Duloxetine HCl 90 MG DAILY 12/12 1000 AC 12/12 PO 0913 Hydralazine HCl 50 MG TID 12/08 1000 AC 12/12 PO 0928 Insulin Aspart 0 TIDAC 12/07 1200 AC 12/12 SC 1200 Insulin Detemir 20 UNITS AT BEDTIME 12/07 2200 AC 12/11 SC 2230 Isosorbide 60 MG DAILY 12/07 1000 AC 12/12 Mononitrate PO 0927 Levothyroxine Sodium 0.1 MG DAILY AC 12/07 0700 AC 12/12 PO 0557 Losartan Potassium 50 MG DAILY 12/08 1000 AC 12/12 PO 0916 Magnesium Hydroxide 30 ML ONE ONE 12/12 1015 DC 12/12 PO 12/12 1016 1131 Magnesium Hydroxide 30 ML AT BEDTIME PRN 12/12 1000 DC PO Ondansetron HCl 4 MG Q6P PRN 12/07 1445 AC IV Polyethylene Glycol 17 GM DAILY 12/08 1000 AC 12/12 PO 0913 Senna/Docusate Sodium 2 TAB AT BEDTIME NEED.. 12/07 1445 AC 12/09 PO 2332 Warfarin Sodium 5 MG COUMADIN 1700 ONE 12/11 1700 DC 12/11 PO 12/11 1701 1629 Vital Signs & I&O Last 24 Hrs of Vitals and I&O: Vital Signs Date Time Temp Pulse Resp B/P B/P Pulse O2 O2 Flow FiO2 Mean Ox Delivery Rate 12/12 1517 96 Nasal 4.0L Cannula 12/12 1508 99.4 62 18 136/62 97 Nasal 4.0L Cannula 12/12 0928 130/70 12/12 0927 130/70 12/12 0927 130/70 12/12 0916 132/62 12/12 0916 132/62 12/12 0826 94 Nasal 40% Cannula 12/12 0735 98.8 61 20 132/62 94 Nasal Cannula 12/12 0031 93 Nasal 50% Cannula 12/12 0000 98.5 76 18 138/70 93 Nasal Cannula 12/11 2302 94 Nasal 45% Cannula 12/11 2110 Nasal Cannula 12/11 2033 64 142/84 12/11 2032 64 142/84 12/11 1941 94 Nasal 45% Cannula 12/11 1704 94 Nasal Cannula 12/11 1700 98.9 69 20 142/84 96 Nasal Cannula 12/11 1634 96 Nasal 45% Cannula Intake & Output 12/12 1600 0708 0800 07/08 0000 Intake Total 400 450 240 Output Total 700 400 Balance -300 50 240 Intake, Oral 400 450 240 Output, Urine 700 400 Exam General Appearance: well developed/nourished, no apparent distress, alert, awake , comfortable Head: atraumatic, normal appearance Respiratory: no respiratory distress, few basilar crackles suffincient air entry over lung base bilaterally Cardiovascular: regular rate/rhythm, nl S/S2 with no MRGs Abdomen: soft, non-tender Extremities: Left greater than right lower extremity edema, left knee dressings in place Results Last 24 Hrs of Lab Results: Laboratory Tests 12/12/16 0618: Anion Gap 12, Estimated GFR 23 L, BUN/Creatinine Ratio 28.6 H, PT 28.6 H, INR 2.75 H, CBC w Diff NO MAN DIFF REQ, RBC 2.96 L, MCV 85.0, MCH 28.0, RDW 15.9 H, MPV 9.2, Gran % 67.2, Lymphocytes % 12.9 L, Monocytes % 9.0, Eosinophils % 10.4 H, Basophils % 0.5, Absolute Granulocytes 6.7 H, Absolute Lymphocytes 1.3 , Absolute Monocytes 0.9 H, Absolute Eosinophils 1.0, Absolute Basophils 0.1, PUBS MCHC 32.9 L Diagnostic Data CXR Findings: Pulmonary edema has slightly improved compared to 12/09/2016. US Findings: Normal triplex scan without evidence of deep venous thrombosis involving the lower extremity. Impression/Plan Impression/Plan Impression/Plan: 1. Acute hypoxic respiratory failure secondary to CHF. 2. Obstructive sleep apnea. 3. Diastolic heart failure exacerbation. 4. Anemia, without evidence of bleeding, status post blood transfusion. 5. Left TKR. 6. DM, CAD, LCX stentx2 in 2013, CKD. Recommendations: I have personally seen and examined the patient, and agree with the resident's assessment plan as detailed above. We will follow the plan of care. The patient will be changed over to high flow oxygen, and I asked respiratory to titrate her oxygen requirements down, to maintain her saturations greater than 92%. We will continue to follow along with you and provide further recommendations as necessary.
[2016-12-13] VITALS: BP 146/84
[2016-12-13 06:56] VITALS: BP 140/64
[2016-12-13 08:09] LABS: ABSOLUTE BASOPHIL COUNT 0 /CUMM (0.0-0.2); ABSOLUTE EOSINOPHIL COUNT 1.1 /CUMM (0.0-0.7); ABSOLUTE GRANULOCYTE CT 5.2 /CUMM (1.4-6.5); ABSOLUTE LYMPH COUNT 1.1 /CUMM (1.2-3.4); ABSOLUTE MONOCYTE COUNT 0.8 /CUMM (0.10-0.60); BASOPHIL % 0.4 % (0.0-2.0); EOSINOPHIL % 13.1 % (0-5); GRANULOCYTE % 63.5 % (42.2-75.2); HEMATOCRIT 25.4 % (37-47); MEAN CORPUSCULAR HGB 28.2 PG (27.0-31.0); MEAN CORPUSCULAR HGB CONC 33.5 G/DL (33.0-37.0); MEAN CORPUSCULAR VOLUME 84.3 FL (81.0-99.0); MEAN PLATELET VOLUME 8.7 FL (7.4-10.4); PLATELET COUNT 235 /CUMM (130-400); RBC DISTRIBUTION WIDTH 15.8 % (11.5-14.5); RED BLOOD CELL CT 3.01 /CUMM (4.20-5.40); WHITE BLOOD CELL COUNT 8.1 /CUMM (4.8-10.8)
--- NOTE | 2016-12-13 08:40 | PN- Cardiology ---
Subjective Subjective: Feels good, no CP or SOB Objective Vital Signs and I&Os Vital Signs Date Time Temp Pulse Resp B/P B/P Pulse O2 O2 Flow FiO2 Mean Ox Delivery Rate 12/13 0822 98 Nasal 3.0L Cannula 12/13 0656 98.2 57 18 140/64 96 Nasal Cannula 12/13 0000 98.5 64 18 146/84 95 Nasal 3.0L Cannula 12/12 2247 95 Nasal 3.0L Cannula 12/12 2104 98.5 62 18 146/84 12/12 2104 62 146/84 12/12 1652 94 Nasal 4.5L Cannula 12/12 1625 136/64 12/12 1517 96 Nasal 4.0L Cannula 12/12 1508 99.4 62 18 136/62 97 Nasal 4.0L Cannula 12/12 0928 130/70 12/12 0927 130/70 12/12 0927 130/70 12/12 0916 132/62 08 0916 132/62 Intake & Output 12/13 1600 12/13 0800 12/13 0000 12/12 1600 12/12 0800 12/12 0000 Intake Total 400 200 400 450 240 Output Total 650 350 700 400 Balance -250 -150 -300 50 240 Intake, IV 100 Intake, Oral 300 200 400 450 240 Number 1 Bowel Movements Output, Urine 650 350 700 400 Physical Exam: Neck-JVP normal, no bruit Lungs-few left base crackles, right is clear Heart S1S2 regular, no murmur Abdomen-soft, not tender, BS+, no organomegaly Extr-trace bilateral edema, 2+ pulses Current Medications: Current Medications Sig/Larissa Start time Last Medication Dose Route Stop Time Status Admin Acetaminophen 650 MG Q6P PRN 12/10 1045 AC 12/11 PO 1446 Acetaminophen 1,000 MG Q8P PRN 12/10 1045 AC N/A 1 UNIT IV Al Hydroxide/Mg 30 ML Q6P PRN 12/07 1445 AC 12/08 Hydroxide PO 1750 Albuterol Sulfate 2 PUF Q4-6 PRN PRN 12/07 1445 AC INH Amlodipine Besylate 5 MG DAILY 12/07 1000 AC 12/12 PO 0916 Ampicillin Sodium/ 1,500 MG Q12H 12/09 1700 AC 12/13 Sulbactam Sodium IV 0525 Sodium Chloride 100 ML Aspirin Buffered 81 MG DAILY 12/09 1536 AC 12/12 PO 0914 Bisacodyl 10 MG .STK-MED ONE 12/12 1812 DC MO 12/12 1813 Bisacodyl 5 MG DAILY 12/11 1318 AC 12/12 PO 0913 Budesonide/ 2 PUF BID 12/07 2200 AC 12/12 Formoterol Fumarate INH 2106 Carvedilol 25 MG BID 12/07 1000 AC 12/12 PO 210 Docusate Sodium 100 MG BID 12/08 1000 AC 12/12 PO 210 Duloxetine HCl 90 MG DAILY 12/12 1000 AC 12/12 PO 09 Hydralazine HCl 50 MG TID 12/08 1000 AC 12/12 PO 210 Insulin Aspart 0 TIDAC 12/07 1200 AC 12/12 SC 1200 Insulin Detemir 20 UNITS AT BEDTIME 12/07 2200 AC 12/12 SC 212 Isosorbide 60 MG DAILY 12/07 1000 AC 12/12 Mononitrate PO 0927 Levothyroxine Sodium 0.1 MG DAILY AC 12/07 0700 AC 12/13 PO 0525 Losartan Potassium 50 MG DAILY 12/08 1000 AC 12/12 PO 0916 Magnesium Hydroxide 30 ML ONE ONE 12/12 1015 DC 12/12 PO 12/12 1016 1131 Magnesium Hydroxide 30 ML AT BEDTIME PRN 12/12 1000 CA PO Ondansetron HCl 4 MG Q6P PRN 12/07 1445 AC IV Polyethylene Glycol 17 GM DAILY 12/08 1000 12/12 PO 0913 Senna/Docusate Sodium 2 TAB AT BEDTIME NEED.. 12/07 1445 12/09 PO 2332 Warfarin Sodium 4 MG COUMADIN 1700 ONE 12/12 1700 CA 12/12 PO 12/12 1701 1727 Results Last 48 Hrs of Labs/Mics: Laboratory Tests 12/13/16 0630: Anion Gap 10, Estimated GFR 28 L, BUN/Creatinine Ratio 33.3 H, PT Pending, INR Pending, CBC w Diff Pending, WBC Pending, RBC Pending, Hgb Pending, Hct Pending, MCV Pending, MCH Pending, RDW Pending, Plt Count Pending, MPV Pending, PUBS MCHC Pending 12/12/16 0618: Anion Gap 12, Estimated GFR 23 L, BUN/Creatinine Ratio 28.6 H, PT 28.6 H, INR 2.75 H, CBC w Diff NO MAN DIFF REQ, RBC 2.96 L, MCV 85.0, MCH 28.0, RDW 15.9 H, MPV 9.2, Gran % 67.2, Lymphocytes % 12.9 L, Monocytes % 9.0, Eosinophils % 10.4 H, Basophils % 0.5, Absolute Granulocytes 6.7 H, Absolute Lymphocytes 1.3 , Absolute Monocytes 0.9 H, Absolute Eosinophils 1.0, Absolute Basophils 0.1, PUBS MCHC 32.9 L Assessment/Plan Assessment/Plan Assessment/Plan 70 year old female with h/o CAD, LCX stentx2 in 2013, HTN, dyslipidemia, DM, CRI , CHF (last cath in August 2016 revealing non obstructive CAD, increased LVEDP), anemia developed hypoxic respiratory failure 24 hours after elective left TKR. Etiology likely due to HFpEF but she also spiked fever and WBC is elevated, CXR concerning for pulmonary edema and LLL infiltrate. She is overall improved, requiring less O2 Creatilnine back to baseline today Plan: start bumetanide 2 mg po qd today continue other BP meds monitor renal function, blood count po atb CPAP at night Likely discharge on Wednesday Continue telemetry? No
--- NOTE | 2016-12-13 08:44 | PN- Housestaff ---
JESS GUTIERREZ,ROSMERY 12/13/16 0844: Subjective Follow-up For: Acute on chronic CHF exacerbation Aspiration pneumonia Post total left knee arthroplasty Complaints: pain scale (0-10) Tele-Events Since Last Visit: [facility] Subjective: Patient examined bedside patient states that she feels good complains of some slight tenderness in her left knee post arthroplasty. No other complaints. Review of Systems Constitutional: Reports: no symptoms (TAPER aTIVAN 1). EENTM: Reports: no symptoms. Cardiovascular: Reports: no symptoms. Respiratory: Reports: no symptoms. Gastrointestinal: Reports: no symptoms (FOLLOWED BY ge). Genitourinary: Reports: no symptoms. Musculoskeletal: Reports: no symptoms, joint pain. Skin: Reports: no symptoms. Neurological/Psychological: Reports: no symptoms. Hematologic/Endocrine: Reports: no symptoms. Immunologic/Allergic: Reports: no symptoms. Objective Last 24 Hrs of Vital Signs/I&O Vital Signs Date Time Temp Pulse Resp B/P B/P Pulse O2 O2 Flow FiO2 Mean Ox Delivery Rate 12/13 1503 98.5 72 18 150/60 93 Nasal 2.0L Cannula 12/13 1159 58 18 134/70 99 Nasal 3.0L Cannula 12/13 0912 144/64 12/13 0912 144/64 12/13 0912 144/64 12/13 0912 144/64 12/13 0912 144/64 12/13 0822 98 Nasal 3.0L Cannula 12/13 0656 98.2 57 18 140/64 96 Nasal Cannula 12/13 0000 98.5 64 18 146/84 95 Nasal 3.0L Cannula 12/12 2247 95 Nasal 3.0L Cannula 12/12 2104 98.5 62 18 146/84 12/12 2104 62 146/84 Intake & Output 12/13 1600 12/13 0800 12/13 0000 Intake Total 240 400 200 Output Total 400 650 350 Balance -160 -250 -150 Intake, IV 100 Intake, Oral 240 300 200 Number 1 Bowel Movements Output, Urine 400 650 350 Physical Exam General Appearance: Alert, Oriented X3, Cooperative, No Acute Distress Skin: No Rashes, No Breakdown, No Significant Lesion Skin Temp/Moisture Exam: Warm/Dry Sepsis Skin Exam (color): Normal for Ethnicity HEENT: Atraumatic, EOMI, Mucous Membr. moist/pink Cardiovascular: Regular Rate, Normal S1, Normal S2, No Murmurs, Gallops, Rubs Lungs: CRACKLES BILATERALLY BASES Abdomen: Normal Bowel Sounds, Soft, No Tenderness Neurological: Normal Speech Extremities: No Clubbing, No Cyanosis, No Edema, Normal Pulses, No Tenderness/ Swelling Vascular: Normal Pulses Sepsis Peripheral Pulse Location: Radial Sepsis Peripheral Pulse Exam: Normal Current Medications: Current Medications Sig/Larissa Start time Last Medication Dose Route Stop Time Status Admin Acetaminophen 650 MG Q6P PRN 12/10 1045 AC 12/13 PO 1658 Acetaminophen 1,000 MG Q8P PRN 12/10 1045 AC N/A 1 UNIT IV Al Hydroxide/Mg 30 ML Q6P PRN 12/07 1445 AC 12/08 Hydroxide PO 1750 Albuterol Sulfate 2 PUF Q4-6 PRN PRN 12/07 1445 AC INH Amlodipine Besylate 5 MG DAILY 12/07 1000 AC 12/13 PO 0912 Ampicillin Sodium/ 1,500 MG Q12H 12/09 1700 DC 12/13 Sulbactam Sodium IV 1655 Sodium Chloride 100 ML Aspirin Buffered 81 MG DAILY 12/09 1536 AC 12/13 PO 0910 Bisacodyl 10 MG .STK-MED ONE 12/12 1812 DC CA 12/12 1813 Bisacodyl 5 MG DAILY 12/11 1318 AC 12/13 PO 0910 Budesonide/ 2 PUF BID 12/07 2200 AC 12/13 Formoterol Fumarate INH 0913 Bumetanide 2 MG DAILY 12/13 1000 AC 12/13 PO 1049 Carvedilol 25 MG BID 12/07 1000 AC 12/13 PO 0912 Docusate Sodium 100 MG BID 12/08 1000 AC 12/13 PO 0910 Duloxetine HCl 90 MG DAILY 12/12 1000 AC 12/13 PO 0911 Hydralazine HCl 50 MG TID 12/08 1000 AC 12/13 PO 1654 Insulin Aspart 0 TIDAC 12/07 1200 AC 12/12 SC 1200 Insulin Detemir 20 UNITS AT BEDTIME 12/07 2200 AC 12/12 SC 2122 Isosorbide 60 MG DAILY 12/07 1000 AC 12/13 Mononitrate PO 0912 Levothyroxine Sodium 0.1 MG DAILY AC 12/07 0700 AC 12/13 PO 0525 Losartan Potassium 50 MG DAILY 12/08 1000 AC 12/13 PO 0912 Ondansetron HCl 4 MG Q6P PRN 12/07 1445 AC IV Polyethylene Glycol 17 GM DAILY 12/08 1000 AC 12/13 PO 0910 Senna/Docusate Sodium 2 TAB AT BEDTIME NEED.. 12/07 1445 AC 12/09 PO 2332 Last 24 Hrs of Lab/Jose Alejandro Results Last 24 Hrs of Labs/Mics: Laboratory Tests 12/13/16 0630: Anion Gap 10, Estimated GFR 28 L, BUN/Creatinine Ratio 33.3 H, PT 35.8 H, INR 3.45 H, CBC w Diff NO MAN DIFF REQ, RBC 3.01 L, MCV 84.3, MCH 28.2, RDW 15.8 H, MPV 8.7, Gran % 63.5, Lymphocytes % 13.5 L, Monocytes % 9.5 H, Eosinophils % 13.1 H, Basophils % 0.4, Absolute Granulocytes 5.2, Absolute Lymphocytes 1.1 L, Absolute Monocytes 0.8 H, Absolute Eosinophils 1.1, Absolute Basophils 0, PUBS MCHC 33.5 Orders Radiology Findings: DOPPLER VENOUS IMPRESSION: Normal triplex scan without evidence of deep venous thrombosis involving the lower extremity. Lines/Diet/Fluids Restraints: none Assessment/Plan Assessment: 70 year old lady with PMH of CAD, LCX stent x 2 in 2013, HTN, dyslipidemia, DM, CRI, CHF (last cath in August 2016 revealing non obstructive CAD, increased LVEDP ), anemia. patient developed acute hypoxic respiratory failure 24 hours after elective left total knee replacemt , most likely due to fluid overload after the surgery, patient also spiked fever of 101 and high WBCs of 11.2 which might be due to aspiration pnumonia after her surgery or other underlying infectious process. He was dissected # Acute on chronic CHF exacerbation(acute pulmonary edema): -most likely due to fluid overload after her surgery, today the patient reports feeling less SOB, CRACKLES STILL PRESENT -will hold lasix today and moitor fluid balance as per Dr Simms recommendation as her cr today is 1.8 -she IS resumed on Bumex 2 mg daily(home dose) at discharge as per cardiology recommendations. - continue to monitor her I & o IVONNE 1NCE IS -410 -daily weights -continue to moitor in telemetry -monitor BEP, BUN and CR -Titrate oxygen down for saturations greater than 92%. -Continue nocturnal CPAP. # possible aspiraton pneumonia: -today her WBC 8.1 -BLOOD cultures negative -still have scattered wheezes and crepitation -discontinuation of antibiotics as per Deneen Preciado MD -TRC and Incentive spirometry -titrate her oxygen requirements down, to maintain her saturations greater than 92% as per Dr Preciado recomm. -pending urine Legionella and strep pneumonia pending as per Dr Preciado recomm -Continue CPAP at night # Anemia: -patient developed anemia after her surgery, her hgb was 7.4 on 12/10 , - her hgb today is 8.3 -continue to monitor her CBC Hypertension Continue home meds of amlodipine hydralazine Cozaar Hypothyroid Levothyroxine 0.1 mg daily #Total left knee arthroplasty -Continue management as per surgical team. -Continue Coumadin as per surgery recommendations. continue to check her INR, today it was 3.45 supratherapeutic. Do not dose COUMADIN today. # Depression: -Please increase Cymbalta to 90 mg daily as per psychiatry recommendation - will continue to avoid benzodiazepines, opioid analgesics, and meds with strong anticholinergic properties as much as possible to prevent further confusion, as per psych recomm pt is full code Problem List: 1. S/P TKR (total knee replacement) 2. Acute on chronic congestive heart failure 3. Pneumonia 4. Anemia 5. Hypothyroidism 6. History of - hypertension Pain Ratin Pain Location: LEFT KNEE Pain Goal: Remain pain free Pain Plan: Tylenol for pain Tomorrow's Labs & Rationales: SEND TO [facility] DVT/Prophylaxis: pharmacological CHERYL YA 12/13/16 0943: Attending MD Review Statement Attending Statement Attending MD Statement: examined this patient, discuss w/resident/PA/RAIL TRACK MAINTAINER, agreed w/resident/PA/RAIL TRACK MAINTAINER, discussed with family, reviewed EMR data (avail), discussed with nursing, discussed with case mgmt, reviewed images, amended to note Attending Assessment/Plan: The patient was seen and discussed with house staff. Appreciate pulmonary and cardiology input. Taper nasal oxygen. Lasix on hold at present, start bumex 2mg today, monitor renal functions. Low grade fever and WBC- will continue Unasyn. Continue to follow oxygen saturations, etc. Patient states that when ready to discharge would prefer home rather than STR. Will do TRC Nebs. Encourage incentive spiroemtry. Coumadin INR therapeutic, cont current care. anticipate d/ c soon.
[2016-12-13 08:46] LABS: PT 35.8 SEC (9.4-12.5)
[2016-12-13 11:59] VITALS: BP 134/70
--- NOTE | 2016-12-13 12:37 | Discharge Summary ---
Visit Information Visit Dates Admission Date: 12/07/16 Discharge Date: 12/14/2016 Hospital Course Course Attending Physician: NADJA PERALTA MD Primary Care Physician: GLORIA GUTIERREZ,[facility] Course: Patient is a 71-year-old woman with past medical history significant for coronary artery disease status post 2 stents LAD in 2013, history of hypertension hyperlipidemia, history of diabetes, history of CHF and history of recent catheterization in August 2016 revealing nonobstructive hernia artery disease with increased left ventricular and diastolic pressures, history of spinal stenosis on spinal stimulator since last 6 years, osteoarthritis, history of parathyroidectomy, hypothyroidism, diabetes, chronic kidney disease stage III , asthma, obstructive sleep apnea on nocturnal CPAP, was admitted under surgical service for total left knee arthroplasty. Postoperatively patient developed acute hypoxic respiratory failure and anemia. She also spiked a fever and chest x-ray showed left lower lobe infiltrate concerning for pneumonia. She was treated on the in the hospital for: Acute on chronic HFwPEF exacerbation(acute pulmonary edema): Post the procedure portion got fair amount of hydration and developed flash pulmonary edema. Cardiology, pulmonology was consulted. Her oxygen requirements went up to 5 L and later Ventimask. She also required BiPAP during the night. On examination she had crackles, leg edema and chest x-ray showed increasing interstitial markings. She was diuresed with IV Lasix with close monitoring of the kidney function. Patient showed significant improvement with diuresis with improvement of her leg edema and shortness of breath. Lasix was held for 2 days due to worsening renal failure. Later she was resumed on Bumex 2 mg daily(home dose) at discharge as per cardiology recommendations. Aspiraton pneumonia: Patient spiked a fever of 100.2 with some leukocytosis and there was a question of possible aspiration pneumonia since she had undergone anesthesia for the knee replacement. She was treated with IV Unasyn and later transitioned to by mouth antibiotics Augmentin 875 mg BID to complete 3 more days. Blood cultures remain negative. Symptomatically patient improved significantly. Acute kidney injury: Patient received IV diuresis which pushed her into acute kidney injury. Lasix was held for 2 days with significant improvement in her kidney function. When creatinine got back to baseline, she was resumed on Bumex 2 mg which is her home medication. Postoperative anemia: Postoperative replete patient had a drop in her H&H and got 1 unit of blood transfusion. Thereafter her CBC was monitored every day and it remained stable. Total left knee arthroplasty: Patient underwent total knee arthroplasty on 12/07 by . Patient tolerated the procedure well however postop day 2 Left acute hypoxic respiratory failure due to a combination of pulmonary edema , aspiration pneumonia. She was thereafter treated with IV Lasix and IV antibiotics. Patient needs to follow up with orthopedics post discharge. Physical therapy worked with the patient while in the hospital. Patient needs to be on 6 weeks of Coumadin post discharge. Have INR checked every day for target between 2 and 3 Depression: Patient had depressive symptoms post her surgery and was evaluated by psychiatrist. Her Cymbalta was increased from 60-91 g daily. We tried to avoid benzodiazepines, opioid analgesics, and meds with strong anticholinergic properties as much as possible to prevent further confusion. Nursing interventions produced a minimum, Noyce level was reduced with reduce lighting to help patient recovered fast. Her intake appointment scheduled for [facility] for December 22 at 3:15 PM with Bubba Whalen LCSW. Clinic is at [address] [place] [address], please call [phone] with any questions DVT prophylaxis Coumadin Full code Mild/moderate pain pathway Allergies: Coded Allergies: povidone-iodine (From BETADINE) (RASH 12/04/16) ITCH PER ANTIBIOTIC ORDER SHEET OF 12/04/16 (SJS) soap (From BETADINE) (RASH 10/22/15) PARISH Inhibitors (Mild, COUGH 10/22/15) Disposition Summary Disposition Principal Diagnosis: Total left knee arthroplasty Additional Diagnosis: Acute hypoxic respiratory failure Acute on chronic heart failure with preserved ejection fraction Aspiration pneumonia Acute on chronic renal insufficiency Postoperative anemia Discharge Disposition: home health services Discharge Instructions General Discharge Information Code Status: Full Code Patient's Diet: Heart healthy Patient's Activity: Weightbearing as tolerated Follow-Up Instructions/Appts: Follow-up with PCP within one week after discharge. Have INR checked daily while on Coumadin for target between 2 and 3 Please follow-up with your orthopedic doctor in 2 weeks. Please follow-up with your sourcing associate within 2 weeks. Please follow-up with dietary internship within 2 weeks. You have an intake appointment scheduled at [facility] December 22 at 3:15 PM with Bubba Whalen LCSW. Clinic is located at [address] [place] [address]. Please call [phone] Medications at Discharge Discharge Medications: Stop taking the following medications: Aspirin (Ecotrin*) 81 MG TABLET. ORAL DAILY Continue taking these medications: Hydralazine HCl (Hydralazine HCl) 50 MG TABLET 1 Tablet ORAL THREE TIMES DAILY Comments: GIVEN 11/04/16 @ 1130 Duloxetine HCl (Cymbalta) 60 MG CAPSULE. 1 Capsule ORAL DAILY Comments: GIVEN 11/04/16 @ 1130 Insulin Aspart (Novolog) (Unknown Strength) VIAL 0 Inject into fatty tissue 3 TIMES DAILY BEFORE MEALS Instructions: Blood Sugar: Insulin dose 80-150 No change 151-200 Plus 2 Units 201-250 Plus 4 Units 251-300 Plus 6 Units 301-350 Plus 8 Units 351-400 Plus 10 Units >400 Plus 12 Units Comments: GIVEN 11/04/16 @ 1230 Fluticasone/Salmeterol (Advair 250-50 Diskus) 1 EACH BLST.W.DEV 1 Puff Inhale through mouth TWICE DAILY Comments: GIVEN SYMBICORT IN HOSPITAL 11/04/16 @ 1130 Denosumab (Prolia) 60 MG/1 ML SYRINGE 60 Milligram Inject into fatty tissue Q6M Comments: NOT GIVEN Isosorbide Mononitrate (Isosorbide Mononitrate ER) 60 MG TAB.ER.24H 60 Milligram ORAL DAILY Days = 30 Comments: GIVEN 11/04/16 @ 1130 Rosuvastatin Calcium (Crestor) 20 MG TABLET 1 Tablet ORAL DAILY Comments: GIVEN ATORVASTATIN IN HOSPITAL 11/03/16 @ 5:40 PM Irbesartan (Irbesartan) 300 MG TABLET 0.5 Tablet ORAL DAILY Qty = 90 Comments: GIVEN LOSARTAN IN HOSPITAL 11/04/16 @ 1130 Carvedilol (Coreg) 25 MG TABLET 1 Tablet ORAL TWICE DAILY Qty = 30 Comments: GIVEN 11/04/16 @ 1130 Insulin Detemir (Levemir) 100 UNIT/ML VIAL 20 Units Inject into fatty tissue AT BEDTIME Days = 30 Comments: GIVEN 11/03/16 @ 9:30 PM Insulin Aspart, Recombinant (Novolog Flexpen) 100 UNIT/ML INSULN.PEN 0 Inject into fatty tissue See Instructions Qty = 1 Instructions: BEFORE MEALS Blood Insulin Sugar Units <80 0 81-100 2 101-200 4 201-250 6 251-300 8 301-350 10 351-400 12 >400 Call Doctor AT BEDTIME Blood Insulin Sugar Units <80 0 81-150 3 units bedtime scale 150-200 5 units 201-250 7 units 251-300 9 units 2 units 301-350 10 units 3 units 351-400 11 units 4 units >400 12 units 5 units >400 Call Doctor Comments: GIVEN 11/04/16 @ 1230 Amlodipine Besylate (Amlodipine Besylate) 5 MG TABLET 1 Tablet ORAL DAILY Qty = 30 Bumetanide (Bumetanide) 1 MG TABLET 2 Tablet ORAL DAILY Qty = 30 Comments: GIVEN 11/04/16 @ 1130 Levothyroxine Sodium (Levothyroxine Sodium) 100 MCG TABLET 1 Tablet ORAL DAILY Albuterol Sulfate (Proair Hfa) 90 MCG HFA.AER.AD 2 Puff Inhale through mouth EVERY 4-6 HOURS NEEDED as needed for ASTHMA Ferrous Sulfate (Ferrous Sulfate) 325 MG (65 MG IRON) TABLET 1 Tablet ORAL DAILY Start taking the following new medications: Warfarin Sodium (Coumadin) 1 MG TABLET 1 Tablet ORAL DAILY Qty = 30 No Refills Instructions: Please take 2mg today at 5pm, check INR and dose for a target of between 2 and 3 Amoxicillin/Potassium Clav (Augmentin 875-125 Tablet) 875 MG-125 MG TABLET 1 Tablet ORAL TWICE DAILY Qty = 6 No Refills Copies To: Deneen MERCEDES MD; KEVIN MERCEDES APRN; GLORIA GUTIERREZ,KAISER; JUAN DIEGO GUTIERREZ, YANNICK; REY LAYNE,BUBBA MICHEL; ERIKA NOE MD; EMILY CRUMP MD
--- NOTE | 2016-12-13 13:17 | PN- Pulmonary ---
Subjective HPI/Critical Care Issues: The patient is awake and alert. She reports that she is feeling much improved. She is less short of breath and she is now on 4 lpm with saturations in the mid 90s. She has less edema and she is now able to lay flat. Objective Current Medications: Current Medications Sig/Larissa Start time Last Medication Dose Route Stop Time Status Admin Acetaminophen 650 MG Q6P PRN 12/10 1045 AC 12/11 PO 1446 Acetaminophen 1,000 MG Q8P PRN 12/10 1045 AC N/A 1 UNIT IV Al Hydroxide/Mg 30 ML Q6P PRN 12/07 1445 AC 12/08 Hydroxide PO 1750 Albuterol Sulfate 2 PUF Q4-6 PRN PRN 12/07 1445 AC INH Amlodipine Besylate 5 MG DAILY 12/07 1000 AC 12/13 PO 0912 Ampicillin Sodium/ 1,500 MG Q12H 12/09 1700 AC 12/13 Sulbactam Sodium IV 0525 Sodium Chloride 100 ML Aspirin Buffered 81 MG DAILY 12/09 1536 AC 12/13 PO 0910 Bisacodyl 10 MG .STK-MED ONE 12/12 1812 DC VA 12/12 1813 Bisacodyl 5 MG DAILY 12/11 1318 AC 12/13 PO 0910 Budesonide/ 2 PUF BID 12/07 2200 AC 12/13 Formoterol Fumarate INH 0913 Bumetanide 2 MG DAILY 12/13 1000 AC 12/13 PO 1049 Carvedilol 25 MG BID 12/07 1000 AC 12/13 PO 0912 Docusate Sodium 100 MG BID 12/08 1000 AC 12/13 PO 0910 Duloxetine HCl 90 MG DAILY 12/12 1000 AC 12/13 PO 0911 Hydralazine HCl 50 MG TID 12/08 1000 AC 12/13 PO 0912 Insulin Aspart 0 TIDAC 12/07 1200 AC 12/12 SC 1200 Insulin Detemir 20 UNITS AT BEDTIME 12/07 2200 AC 12/12 SC 2122 Isosorbide 60 MG DAILY 12/07 1000 AC 12/13 Mononitrate PO 0912 Levothyroxine Sodium 0.1 MG DAILY AC 12/07 0700 AC 12/13 PO 0525 Losartan Potassium 50 MG DAILY 12/08 1000 AC 12/13 PO 0912 Ondansetron HCl 4 MG Q6P PRN 12/07 1445 AC IV Polyethylene Glycol 17 GM DAILY 12/08 1000 AC 12/13 PO 0910 Senna/Docusate Sodium 2 TAB AT BEDTIME NEED.. 12/07 1445 AC 12/09 PO 2332 Warfarin Sodium 4 MG COUMADIN 1700 ONE 12/12 1700 DC 12/12 PO 12/12 1701 1727 Vital Signs & I&O Last 24 Hrs of Vitals and I&O: Vital Signs Date Time Temp Pulse Resp B/P B/P Pulse O2 O2 Flow FiO2 Mean Ox Delivery Rate 12/13 1159 58 18 134/70 99 Nasal 3.0L Cannula 12/13 0812 144/64 12/13 0912 144/64 12/13 0912 144/64 12/13 0912 144/64 12/13 0912 144/64 12/13 0822 98 Nasal 3.0L Cannula 12/13 0656 98.2 57 18 140/64 96 Nasal Cannula 12/13 0000 98.5 64 18 146/84 95 Nasal 3.0L Cannula 12/12 2247 95 Nasal 3.0L Cannula 12/12 2104 98.5 62 18 146/84 12/12 2104 62 146/84 12/12 1652 94 Nasal 4.5L Cannula 12/12 1625 136/64 12/12 1517 96 Nasal 4.0L Cannula 12/12 1508 99.4 62 18 136/62 97 Nasal 4.0L Cannula Intake & Output 12/13 1600 12/13 0800 12/13 0000 Intake Total 400 200 Output Total 650 350 Balance -250 -150 Intake, IV 100 Intake, Oral 300 200 Number 1 Bowel Movements Output, Urine 650 350 Exam General Appearance: well developed/nourished, no apparent distress, alert, awake , comfortable Head: atraumatic, normal appearance Respiratory: no respiratory distress, few basilar crackles suffincient air entry over lung base bilaterally Cardiovascular: regular rate/rhythm, nl S/S2 with no MRGs Abdomen: soft, non-tender Extremities: Left greater than right lower extremity edema, left knee dressings in place Results Last 24 Hrs of Lab Results: Laboratory Tests 12/13/16 0630: Anion Gap 10, Estimated GFR 28 L, BUN/Creatinine Ratio 33.3 H, PT 35.8 H, INR 3.45 H, CBC w Diff NO MAN DIFF REQ, RBC 3.01 L, MCV 84.3, MCH 28.2, RDW 15.8 H, MPV 8.7, Gran % 63.5, Lymphocytes % 13.5 L, Monocytes % 9.5 H, Eosinophils % 13.1 H, Basophils % 0.4, Absolute Granulocytes 5.2, Absolute Lymphocytes 1.1 L, Absolute Monocytes 0.8 H, Absolute Eosinophils 1.1, Absolute Basophils 0, PUBS MCHC 33.5 Impression/Plan Impression/Plan Impression/Plan: 1. Acute hypoxic respiratory failure secondary to CHF. 2. Obstructive sleep apnea. 3. Diastolic heart failure exacerbation. 4. Anemia, without evidence of bleeding, status post blood transfusion. 5. Left TKR. 6. DM, CAD, LCX stentx2 in 2014, CKD. Recommendations: * Continue to follow cardiology recommendations. * Consider discontinuation of IV antibiotics. * Continue nebs/total respiratory care. * Titrate oxygen down for saturations greater than 92%. * Continue nocturnal CPAP. * Monitor for any evidence of bleeding. * Coumadin for therapeutic INR. * Continue all supportive care.
[2016-12-13 15:03] VITALS: BP 150/60
[2016-12-13 22:18] VITALS: BP 140/70
[2016-12-14 06:39] VITALS: BP 130/4
--- NOTE | 2016-12-14 07:47 | PN- Cardiology ---
Subjective Subjective: No complaints, she wants to go home. Objective Vital Signs and I&Os Vital Signs Date Time Temp Pulse Resp B/P B/P Pulse O2 O2 Flow FiO2 Mean Ox Delivery Rate 12/14 0639 98.1 56 18 130/4 97 Nasal 2.0L Cannula 12/14 0000 93 CPAP 2.0L 12/13 2218 97.7 68 20 140/70 96 12/13 1600 Nasal 2.0L Cannula 12/13 1503 98.5 72 18 150/60 93 Nasal 2.0L Cannula 12/13 1159 58 18 134/70 99 Nasal 3.0L Cannula 12/13 09 144/64 12/14 911 144/64 12/14 911 144/64 12/14 911 144/64 12/14 911 144/64 12/13 0822 98 Nasal 3.0L Cannula Intake & Output 12/14 0800 12/14 0000 12/13 1600 12/13 0800 12/13 0000 12/12 1600 Intake Total 120 150 240 400 200 400 Output Total 400 650 350 700 Balance 120 150 -160 -250 -150 -300 Intake, IV 150 100 Intake, Oral 120 240 300 200 400 Number 1 Bowel Movements Output, Urine 400 650 350 700 Physical Exam: Neck JVP normal, no bruit Lungs-few left base crackles Heart-S1S2, regular, no murmur Abdomen-soft, not tender, BS+, no organomegaly Extr-trace left edema, no cyanosis, 2+ pulses Neuro-non focal Current Medications: Current Medications Sig/Larissa Start time Last Medication Dose Route Stop Time Status Admin Acetaminophen 650 MG .STK-MED ONE 12/13 2221 DC PO 12/13 222 Acetaminophen 650 MG .STK-MED ONE 12/13 1659 DC PO 12/13 1700 Acetaminophen 650 MG Q6P PRN 12/10 1045 AC 12/13 PO 2222 Acetaminophen 1,000 MG Q8P PRN 12/10 1045 AC N/A 1 UNIT IV Al Hydroxide/Mg 30 ML Q6P PRN 12/07 1445 AC 12/08 Hydroxide PO 1750 Albuterol Sulfate 2 PUF Q4-6 PRN PRN 12/07 1445 AC INH Amlodipine Besylate 5 MG DAILY 12/07 1000 AC 12/13 PO 0912 Ampicillin Sodium/ 1,500 MG Q12H 12/09 1700 DC 12/13 Sulbactam Sodium IV 1655 Sodium Chloride 100 ML Aspirin Buffered 81 MG DAILY 12/09 1536 AC 12/13 PO 0910 Bisacodyl 5 MG DAILY 12/11 1318 AC 12/13 PO 0910 Budesonide/ 2 PUF BID 12/07 2200 AC 12/13 Formoterol Fumarate INH 2100 Bumetanide 2 MG DAILY 12/13 1000 AC 12/13 PO 1049 Carvedilol 25 MG BID 12/07 1000 AC 12/13 PO 205 Docusate Sodium 100 MG BID 12/08 1000 AC 12/13 PO 2059 Duloxetine HCl 90 MG DAILY 12/12 1000 AC 12/13 PO 0911 Hydralazine HCl 50 MG TID 12/08 1000 AC 12/13 PO 2100 Insulin Aspart 0 TIDAC 12/07 1200 AC 12/13 SC 1741 Insulin Detemir 20 UNITS AT BEDTIME 12/07 2200 AC 12/13 SC 2100 Isosorbide 60 MG DAILY 12/07 1000 AC 12/13 Mononitrate PO 0912 Levothyroxine Sodium 0.1 MG DAILY AC 12/07 0700 AC 12/14 PO 0519 Losartan Potassium 50 MG DAILY 12/08 1000 AC 12/13 PO 0912 Ondansetron HCl 4 MG Q6P PRN 12/07 1445 AC IV Polyethylene Glycol 17 GM DAILY 12/08 1000 AC 12/13 PO 0910 Senna/Docusate Sodium 2 TAB AT BEDTIME NEED.. 12/07 1445 AC 12/09 PO 2332 Assessment/Plan Assessment/Plan Assessment/Plan 70 year old female with h/o CAD, LCX stentx2 in 2013, HTN, dyslipidemia, DM, CRI , CHF (last cath in August 2016 revealing non obstructive CAD, increased LVEDP), anemia developed hypoxic respiratory failure 24 hours after elective left TKR. She is overall improved, requiring less O2 Creatinine back to baseline today Plan: wean off O2 she should finish 7 days of atb treatment for pneumonia (consider 2 more days of Augmentin) continue other BP meds OK discharge today, she may need O2 of a couple of weeks if unable to wean off O2 f/u with me 7-10 days BMP in 1 [address] on Wednesday [address] Mancera will determine duration of anticoagulation Continue telemetry? No
[2016-12-14 09:10] VITALS: BP 150/60
[2016-12-14 10:53] LABS: PT 27.9 SEC (9.4-12.5)
[2016-12-14 10:57] LABS: ABSOLUTE BASOPHIL COUNT 0 /CUMM (0.0-0.2); ABSOLUTE EOSINOPHIL COUNT 0.9 /CUMM (0.0-0.7); ABSOLUTE GRANULOCYTE CT 5.3 /CUMM (1.4-6.5); ABSOLUTE MONOCYTE COUNT 0.6 /CUMM (0.10-0.60); BASOPHIL % 0.5 % (0.0-2.0); EOSINOPHIL % 11.3 % (0-5); GRANULOCYTE % 67.5 % (42.2-75.2); HEMATOCRIT 26.1 % (37-47); MEAN CORPUSCULAR HGB 27.7 PG (27.0-31.0); MEAN CORPUSCULAR VOLUME 83.9 FL (81.0-99.0); MEAN PLATELET VOLUME 8.1 FL (7.4-10.4); PLATELET COUNT 268 /CUMM (130-400); RBC DISTRIBUTION WIDTH 15.3 % (11.5-14.5); RED BLOOD CELL CT 3.12 /CUMM (4.20-5.40); WHITE BLOOD CELL COUNT 7.9 /CUMM (4.8-10.8)
--- NOTE | 2016-12-14 10:58 | PN- Psychiatry ---
Assessment/Plan Impression: Identifying Info: 71-year-old female presents to [facility] for Left total knee arthroplasty on 12/07/16. She subsequently experienced acute CHF exacerbation and required a longer than expected hospital stay. Seen today on medicine. SUBJECTIVE Patient reports today she feels "grumpy" due to poor sleep. Expresses desire to go home. Denies any side effects of increase in Cymbalta. No other complaints offered. Brief ROS Gait: Reports fair Sleep: Poor Appetite: Fair OBJECTIVE Mental Status Exam Presentation/Appearance: Cooperative with evaluation. Hospital garb. Orientation: x4 Sensorium: Awake and alert Eye contact: Appropriate Affect: Somewhat blunted but congruent with stated mood Mood: "grumpy" Depression: "A little" Anxiety: "A little" Thought Content: - Denies SI/HI, AH/VH, PI. States and also believes they will not kill themselves. - Denies Hopeless/Helpless Thoughts Thought Process: Linear and goal directed Associations: Appropriate Speech: Normal tone and rate Judgment: Intact Insight: Intact Cognition: Memory: Endorses ST deficits Attention/Concentration: Intact Fund of Knowledge: Adequate Abstractions: Did not assess MMSE: Did not assess ASSESSMENT 71-year-old female presents with depressive symptoms in the context of knee surgery and hospital stay. She has a history of depression going back at least 5 years and has intermittently pursue treatment to mixed results. At present she is agreeable to seeing a psychiatric specific prescriber and joining a therapy group, specifically one of the women's therapy groups at [facility]. Additionally the patient recently recovered from an acute confusional state it would be prudent to promote sleep and avoid delirium triggers. Mild improvement since last visit. Diagnosis Unspecified depressive disorder Rule out major depressive disorder Delirium due to anesthesia, resolved A total of 30 minutes was spent with the patient with more than 50% of the time spent in counseling and/or coordination of care. Suggestion: 1. Please include the following inpatient discharge instructions: "Intake appointment scheduled for [facility] for December 22 at 3:15 PM with Angela Whalen LCSW. Clinic is at [address] [place], [place] [address] in [place], please call [phone] with any questions." 2. Continue Cymbalta as currently ordered Thank you for including psychiatry in this case we will sign off at discharge. Subjective Subjective: as above Objective Last 24 Hrs of Vital Signs/I&O Current Medications Sig/Larissa Start time Last Medication Dose Route Stop Time Status Admin Acetaminophen 650 MG .STK-MED ONE 12/13 2222 DC PO 12/13 2223 Acetaminophen 650 MG .STK-MED ONE 12/13 1659 DC PO 12/13 1700 Acetaminophen 650 MG Q6P PRN 12/10 1045 AC 12/13 PO 2222 Acetaminophen 1,000 MG Q8P PRN 12/10 1045 AC N/A 1 UNIT IV Al Hydroxide/Mg 30 ML Q6P PRN 12/07 1445 AC 12/08 Hydroxide PO 1750 Albuterol Sulfate 2 PUF Q4-6 PRN PRN 12/07 1445 AC INH Amlodipine Besylate 5 MG DAILY 12/07 1000 AC 12/14 PO 1004 Ampicillin Sodium/ 1,500 MG Q12H 12/09 1700 DC 12/13 Sulbactam Sodium IV 1655 Sodium Chloride 100 ML Aspirin Buffered 81 MG DAILY 12/09 1536 AC 12/14 PO 1004 Bisacodyl 5 MG DAILY 12/11 1318 AC 12/14 PO 1003 Budesonide/ 2 PUF BID 12/07 2200 AC 12/14 Formoterol Fumarate INH 1002 Bumetanide 2 MG DAILY 12/13 1000 AC 12/14 PO 1003 Carvedilol 25 MG BID 12/07 1000 AC 12/14 PO 1004 Docusate Sodium 100 MG BID 12/08 1000 AC 12/14 PO 1003 Duloxetine HCl 90 MG DAILY 12/12 1000 AC 12/14 PO 1003 Hydralazine HCl 50 MG TID 12/08 1000 AC 12/14 PO 1003 Insulin Aspart 0 TIDAC 12/07 1200 AC 12/14 SC 0852 Insulin Detemir 20 UNITS AT BEDTIME 12/07 2200 AC 12/13 SC 2100 Isosorbide 60 MG DAILY 12/07 1000 AC 12/14 Mononitrate PO 1003 Levothyroxine Sodium 0.1 MG DAILY AC 12/07 0700 AC 12/14 PO 0519 Losartan Potassium 50 MG DAILY 12/08 1000 AC 12/14 PO 1003 Ondansetron HCl 4 MG Q6P PRN 12/07 1445 AC IV Polyethylene Glycol 17 GM DAILY 12/08 1000 AC 12/13 PO 0910 Senna/Docusate Sodium 2 TAB AT BEDTIME NEED.. 12/07 1445 AC 12/09 PO 2332 Laboratory Tests 12/14/16 1007: Sodium Pending, Potassium Pending, Chloride Pending, Carbon Dioxide Pending, Anion Gap Pending, BUN Pending, Creatinine Pending, BUN/Creatinine Ratio Pending , PT 27.9 H, INR 2.68 H, CBC w Diff Pending, WBC Pending, RBC Pending, Hgb Pending, Hct Pending, MCV Pending, MCH Pending, RDW Pending, Plt Count Pending, MPV Pending, PUBS MCHC Pending Vital Signs Date Time Temp Pulse Resp B/P B/P Pulse O2 O2 Flow FiO2 Mean Ox Delivery Rate 12/14 1004 56 150/60 12/14 1004 56 150/60 12/14 1003 56 150/60 12/14 1003 56 150/60 12/14 1003 56 150/60 12/14 0910 150/60 12/14 0800 Nasal 2.0L Cannula 12/14 0639 98.1 56 18 130/4 97 Nasal 2.0L Cannula 12/14 0000 93 CPAP 2.0L 12/13 2218 97.7 68 20 140/70 96 12/13 1600 Nasal 2.0L Cannula 12/13 1503 98.5 72 18 150/60 93 Nasal 2.0L Cannula 12/13 1159 58 18 134/70 99 Nasal 3.0L Cannula Intake & Output 12/14 1600 12/14 0800 12/14 0000 Intake Total 120 150 Output Total Balance 120 150 Intake, IV 150 Intake, Oral 120
--- NOTE | 2016-12-14 11:35 | PN- Housestaff ---
See Addendum Subjective Follow-up For: S/P total left knee arthroplasty Acute on chronic CHF exacerbation Aspiration pneumonia Acute Blood Loss anemia Subjective: I have personally seen and examine dthe patient today. She reports having some SOB in the morning, but feels better after using oxygen. Denies any overnight events, fever, chills and chest pain. Review of Systems Constitutional: Denies: see HPI. Objective Last 24 Hrs of Vital Signs/I&O Vital Signs Date Time Temp Pulse Resp B/P B/P Pulse O2 O2 Flow FiO2 Mean Ox Delivery Rate 12/14 1004 56 150/60 12/14 1004 56 150/60 12/14 1003 56 150/60 12/14 1003 56 150/60 12/14 1003 56 150/60 12/14 0910 150/60 12/14 0800 Nasal 2.0L Cannula 12/14 0639 98.1 56 18 130/4 97 Nasal 2.0L Cannula 12/14 0000 93 CPAP 2.0L 12/13 2218 97.7 68 20 140/70 96 12/13 1600 Nasal 2.0L Cannula 12/13 1503 98.5 72 18 150/60 93 Nasal 2.0L Cannula Intake & Output 12/14 1600 12/14 0800 07 0000 Intake Total 120 150 Output Total Balance 120 150 Intake, IV 150 Intake, Oral 120 Physical Exam General Appearance: Alert, Oriented X3, Cooperative, No Acute Distress Other Physical Findings: Skin: No Rashes, No Breakdown, No Significant Lesion Skin Temp/Moisture Exam: Warm/Dry Sepsis Skin Exam (color): Normal for Ethnicity HEENT: Atraumatic, EOMI, Mucous Membr. moist/pink Cardiovascular: Regular Rate, Normal S1, Normal S2, No Murmurs, Gallops, Rubs Lungs: Mild CRACKLES BILATERALLY BASES Abdomen: Normal Bowel Sounds, Soft, No Tenderness Neurological: Normal Speech Extremities: No Clubbing, No Cyanosis, No Edema, Normal Pulses, No Tenderness/ Swelling Vascular: Normal Pulses Current Medications: Current Medications Sig/Larissa Start time Last Medication Dose Route Stop Time Status Admin Acetaminophen 650 MG .STK-MED ONE 12/13 2222 DC PO 12/13 2223 Acetaminophen 650 MG .STK-MED ONE 12/13 1659 DC PO 12/13 1700 Acetaminophen 650 MG Q6P PRN 12/10 1045 AC 12/13 PO 2222 Acetaminophen 1,000 MG Q8P PRN 12/10 1045 AC N/A 1 UNIT IV Al Hydroxide/Mg 30 ML Q6P PRN 12/07 1445 AC 12/08 Hydroxide PO 1750 Albuterol Sulfate 2 PUF Q4-6 PRN PRN 12/07 1445 AC INH Amlodipine Besylate 5 MG DAILY 12/07 1000 AC 12/14 PO 1004 Ampicillin Sodium/ 1,500 MG Q12H 12/09 1700 DC 12/13 Sulbactam Sodium IV 1655 Sodium Chloride 100 ML Aspirin Buffered 81 MG DAILY 12/09 1536 AC 12/14 PO 1004 Bisacodyl 5 MG DAILY 12/11 1318 AC 12/14 PO 1003 Budesonide/ 2 PUF BID 12/07 2200 AC 12/14 Formoterol Fumarate INH 1002 Bumetanide 2 MG DAILY 12/13 1000 AC 12/14 PO 1003 Carvedilol 25 MG BID 12/07 1000 AC 12/14 PO 1004 Docusate Sodium 100 MG BID 12/08 1000 AC 12/14 PO 1003 Duloxetine HCl 90 MG DAILY 12/12 1000 AC 12/14 PO 1003 Hydralazine HCl 50 MG TID 12/08 1000 AC 12/14 PO 1003 Insulin Aspart 0 TIDAC 12/07 1200 AC 12/14 SC 1215 Insulin Detemir 20 UNITS AT BEDTIME 12/07 2200 AC 12/13 SC 2100 Isosorbide 60 MG DAILY 12/07 1000 AC 12/14 Mononitrate PO 1003 Levothyroxine Sodium 0.1 MG DAILY AC 12/07 0700 AC 12/14 PO 0519 Losartan Potassium 50 MG DAILY 12/08 1000 AC 12/14 PO 1003 Ondansetron HCl 4 MG Q6P PRN 12/07 1445 AC IV Polyethylene Glycol 17 GM DAILY 12/08 1000 AC 12/13 PO 0910 Senna/Docusate Sodium 2 TAB AT BEDTIME NEED.. 12/07 1445 AC 12/09 PO 2332 Last 24 Hrs of Lab/Jose Alejandro Results Last 24 Hrs of Labs/Mics: Laboratory Tests 12/14/16 1007: Anion Gap 10, Estimated GFR 32 L, BUN/Creatinine Ratio 33.8 H, PT 27.9 H, INR 2.68 H, CBC w Diff NO MAN DIFF REQ, RBC 3.12 L, MCV 83.9, MCH 27.7, RDW 15.3 H, MPV 8.1, Gran % 67.5, Lymphocytes % 12.5 L, Monocytes % 8.2, Eosinophils % 11.3 H, Basophils % 0.5, Absolute Granulocytes 5.3, Absolute Lymphocytes 1.0 L , Absolute Monocytes 0.6, Absolute Eosinophils 0.9, Absolute Basophils 0, PUBS MCHC 33.0 Assessment/Plan Assessment: 70 year old lady with PMH of CAD, LCX stent x 2 in 2013, HTN, dyslipidemia, DM, CRI, CHF (last cath in August 2016 revealing non obstructive CAD, increased LVEDP ), anemia. patient developed acute hypoxic respiratory failure 24 hours after elective left total knee replacemt , most likely due to fluid overload after the surgery, patient also spiked fever of 101 and high WBCs of 11.2 which might be due to aspiration pnumonia after her surgery or other underlying infectious process. He was dissected # Acute on chronic CHF exacerbation(acute pulmonary edema): -most likely due to fluid overload after her surgery, today the patient reports feeling less SOB, CRACKLES STILL PRESENT -will hold lasix today and moitor fluid balance as per Dr Simms recommendation as her cr today is 1.8 -she is resumed on Bumex 2 mg daily(home dose) at discharge as per cardiology recommendations. - continue to monitor her I & O -daily weights -continue to moitor in telemetry -monitor BEP, BUN and CR -Titrate oxygen down for saturations greater than 92%. -Continue nocturnal CPAP. # possible aspiraton pneumonia: -today her WBC 7.9 -BLOOD cultures negative -still have scattered wheezes and crepitation -discontinuation of antibiotics as per Deneen Preciado MD -TRC and Incentive spirometry -titrate her oxygen requirements down, to maintain her saturations greater than 92% as per Dr Preciado recomm. -pending urine Legionella and strep pneumonia pending as per Dr Preciado recomm -Continue CPAP at night # Acute Blood Loss Anemia: -patient developed anemia after her surgery, her hgb was 7.4 on 12/10. SHe recieved 1 unit of PRBC. - Her hgb today is 8.6 -continue to monitor her CBC Hypertension Continue home meds of amlodipine hydralazine Cozaar Hypothyroid Levothyroxine 0.1 mg daily #Total left knee arthroplasty -Continue management as per surgical team. -Continue Coumadin as per surgery recommendations. -Continue to check her INR, 2.68 today. Will send her home on 4mg warfarin, follow INR as an outpatient. # Depression: -Please increase Cymbalta to 90 mg daily as per psychiatry recommendation -Will continue to avoid benzodiazepines, opioid analgesics, and meds with strong anticholinergic properties as much as possible to prevent further confusion, as per psych recomm pt is full code Problem List: 1. S/P TKR (total knee replacement) 2. Anemia 3. Acute on chronic congestive heart failure 4. Hypothyroidism 5. History of - hypertension Pain Ratin Pain Location: Knee Pain Goal: Remain pain free Pain Plan: Pain Pathway Tomorrow's Labs & Rationales: None
[2016-12-14] MEDS ORDERED: COUMADIN1 M1 PO (12:28)
--- NOTE | 2016-12-14 12:36 | NUR ---
PT ON 2L NC, SITTING O2 @ 94%, O2 ON AMBULATION WITH 2LNC @ 91%. PT ON RA SITTING O2 @ 94%, PT AMBULATED ON RA O2 AT 88%.
[2016-12-14] MEDS ORDERED: AUGMENTIN 875-1 EACH PO (12:38)
[2016-12-14 14:20] VITALS: BP 140/90
[2016-12-14] MEDS ORDERED: NOVOLOG100 UNIT/2 SC (15:01)
[2016-12-14] MEDS ORDERED: CYMBALTA30 M1 PO (15:47)
== END 2016-12-14 17:00 | disposition home health service (06) | DRG 469 ==
LOC: SDA 01:56 → 1NO 01:56 → ENRESERV 13:29 → ENTRNSPT 14:04 → EDTRNSPTSTS 14:08 → CMPTRNSPT 14:13 → 2NB 14:20 → 1NO 12-09 12:59 → 2NA 12-13 11:33 → ENPENDDIS 12-14 12:50 → 2NA 12-14 17:00
PROVIDERS: Hospitalist; Physician Assistant; Physician Assistant Surgical; Student in an Organized Health Care Education/Training Program; ADMIT Orthopaedic Surgery
PROC: 0SRD0J9 Replacement of Left Knee Joint with Synthetic Substitute, Cemented, Open Approach (ICD-10-PCS; principal; 2016-12-07)
PROC: 30233N1 Transfusion of Nonautologous Red Blood Cells into Peripheral Vein, Percutaneous Approach (ICD-10-PCS; 2016-12-10)
DX: M17.12 Unilateral primary osteoarthritis, left knee (principal); J69.0 Pneumonitis due to inhalation of food and vomit; J95.821 Acute postprocedural respiratory failure; I50.33 Acute on chronic diastolic (congestive) heart failure; N17.9 Acute kidney failure, unspecified; I97.131 Postprocedural heart failure following other surgery; I13.0 Hypertensive heart and chronic kidney disease with heart failure and stage 1 through stage 4 chronic kidney disease, or unspecified chronic kidney disease; D62 Acute posthemorrhagic anemia; J95.89 Other postprocedural complications and disorders of respiratory system, not elsewhere classified; N18.3 Chronic kidney disease, stage 3 (moderate); I25.10 Atherosclerotic heart disease of native coronary artery without angina pectoris; Z95.5 Presence of coronary angioplasty implant and graft; E78.5 Hyperlipidemia, unspecified; E11.9 Type 2 diabetes mellitus without complications; E89.0 Postprocedural hypothyroidism; G47.33 Obstructive sleep apnea (adult) (pediatric); J45.909 Unspecified asthma, uncomplicated; F32.9 Major depressive disorder, single episode, unspecified; M48.00 Spinal stenosis, site unspecified; R41.0 Disorientation, unspecified; T41.1X5A Adverse effect of intravenous anesthetics, initial encounter; Y92.234 Operating room of hospital as the place of occurrence of the external cause
CPT/HCPCS: 1NP; 2NASP; 2NBP; 36415; 73560-LT; 82436; 86920; 87040; 87086; 87449; 87450; 88305; 93005; 93010; 97110-GO; 97112-GO; 97116-GO; 97161-GP; 97164-GP; 97530-GO; C1713; J0131; J0171; J1885; J1940; J2405; J2795; J3370; J3490; J7040; P9016

== ENCOUNTER 2017-05-27 06:58 | Inpatient (IN) | payer OTHER ==
[~2017-05-27] VITALS: Ht 147.3 cm; Wt 81.9 kg
[~2017-05-27 06:58] MED LIST changes: +AUGMENTIN 875-1 EACH PO; +AVAPRO150 M1 PO; +CHARCOAL, ACTI260 MG PO; +COUMADIN1 M1 PO; +CYMBALTA30 M1 PO; +EPINASTINE HCL5 ML OU; +HYDRALAZINE HC100 M1 PO; -HYDRALAZINE HCL50 M1 PO; +HYDROCHLOROTH12.5 M3 PO; +LEVOTHYROXINE125 MCG PO; +NOVOLOG100 UNIT/2 SQ; +PROBIOTIC1 EACH PO; +VITAMIN D1000 UNIT PO
--- NOTE | 2017-05-27 07:12 | ED CRITICAL CARE ---
History of Present Illness General Chief Complaint: Dyspnea (COPD, CHF, Other) Stated Complaint: DIFF BREATHING Source: patient, family, old records, EMS Exam Limitations: clinical condition Vital Signs & Intake/Output Vital Signs & Intake/Output Vital Signs Date Time Temp Pulse Resp B/P B/P Pulse O2 O2 Flow FiO2 Mean Ox Delivery Rate 05/27 0810 100.2 75 32 188/79 93 BIPAP 05/27 0745 88 198/90 05/27 0745 93 92 05/27 0730 97 20 220/98 05/27 0709 104 95 05/27 0700 102 36 249/112 99 BIPAP 100% Allergies Coded Allergies: povidone-iodine (From BETADINE) (RASH 04/11/17) ITCH PER ANTIBIOTIC ORDER SHEET OF 12/04/16 (SJS) soap (From BETADINE) (RASH 04/11/17) PARISH Inhibitors (Mild, COUGH 04/11/17) Triage Note: 71YO FEMAL TO RM 7 VIA AMB FROM HOME W/CO DIFF BREATHING THIS AM. HX CHF. UPON ARRIVAL--AWAKE, ON BIPAP, RALES PRESENT 1/2 WAY UP BILAT Triage Nurses Notes Reviewed? yes Onset: Gradual Duration: day(s): (3), worse persistent since (today) Timing: recent history Injury Environment: home Severity: moderate, severe Associated Symptoms: shortness of breath HPI: This is a 71-year-old female with history of hypertension, congestive heart failure, COPD on oxygen and CPAP presents to the ER by EMS with mom with chief complaint of acute distress. According to the she has been slowly short of breath or past the 3 days getting worse. This morning they found her acutely distressed. According to EMS she was hypertensive in the field with rales in all lung kern. She was started on CPAP for transport. Patient arrives in moderate to severe distress, dyspneic, crackles in all kern. She is awake and alert. The patient has been on oxygen for the past one month after discharge from the hospital after an episode of pneumonia. She follows up with Dr. Preciado as well as Dr. Mtz for cardiology. (Ga GUTIERREZ,[facility]) Reconcile Medications Albuterol Sulfate (Proair Hfa) 90 MCG HFA.AER.AD 1 PUF INH AD PRN ASTHMA ( Reported) Alpha Lipoic Acid 300 MG CAPSULE 1 CAP PO BID NEUROPATHIC PAIN (Reported) Amlodipine Besylate 5 MG TABLET 1 TAB PO DAILY htn Aspirin (Ecotrin*) 81 MG TABLET.DR 1 TAB PO QPM HEART/BLOOD (Reported) Azilsartan Medoxomil (Edarbi) 80 MG TABLET 1 TAB PO DAILY HEART (Reported) Bumetanide 1 MG TABLET 1 TAB PO BID WATER RETENTION (Reported) Carvedilol (Coreg) 25 MG TABLET 1 TAB PO BID HTN (Reported) Cholecalciferol (Vitamin D3) (Vitamin D) 1,000 UNIT TABLET 1 TAB PO DAILY VITAMIN SUPPORT (Reported) Duloxetine HCl 60 MG CAPSULE.DR 1 CAP PO DAILY MOOD (Reported) Ferrous Sulfate 325 MG (65 MG IRON) TABLET.DR 1 TAB PO DAILY ANEMIA Fish Oil/Borage/Flax/Om3,6,9#1 ([place] 3-6-9) 400 MG-400 MG-400 MG CAPSULE 1 TAB PO DAILY SUPPLEMENT (Reported) Fluticasone/Salmeterol (Advair 250-50 Diskus) 1 EACH BLST.W.DEV 1 PUF INH BID ASTHMA (Reported) Hydralazine HCl 100 MG TABLET 1 TAB PO TID BP (Reported) Insulin Aspart (Novolog) 100 UNIT/ML VIAL 1 UNIT SQ SEE ADMIN DM (Reported) 80-120 TAKE 2 U 121-150 TAKE 4U 151-200 TAKE 6U 200-300 TAKE 8U ABOVE 300 CALL PCP Insulin Detemir (Levemir Flextouch) 100 UNIT/ML (3 ML) INSULN.PEN 30-40 UNITS SC DAILY DM (Reported) Irbesartan (Avapro) 150 MG TABLET 1 TAB PO DAILY HYPERTENSION Isosorbide Mononitrate (Isosorbide Mononitrate ER) 60 MG TAB.ER.24H 60 MG PO DAILY htn Levocetirizine Dihydrochloride 5 MG TABLET 1 TAB PO QPM UNKNOWN (Reported) Levothyroxine Sodium 125 MCG TABLET 1 TAB PO DAILY AC THYROID (Reported) Rosuvastatin Calcium (Crestor) 20 MG TABLET 1 TAB PO QPM HYPERCHOLESTROLEMIA (Reported) (Carolyn GUTIERREZ,Jude Barros) Past History Travel History Traveled to [place] past 21 day No Medical History Any Pertinent Medical History? see below for history Neurological: vertigo EENT: SLEEP APNEA Cardiovascular: CHF, hypertension Respiratory: asthma, SLEEP APNEA NOCTURNAL CPAP Gastrointestinal: NONE Hepatic: NONE Renal: CKD 3 Musculoskeletal: SPINAL STENOSIS PAIN STIMULATOR Psychiatric: depression Endocrine: diabetes, HYPOTHYROID Blood Disorders: anemia Cancer(s): NONE AURICULAR DETOXIFICATION SPECIALIST/Reproductive: NONE History of MRSA: No History of VRE: No History of CDIFF: No Influenza Vaccine: 03/31/17 Surgical History Surgical History: Parathyroidectomy carpal tunnel surgery trigger finger surgery Psychosocial History Who do you live with Spouse Services at Home None What is your primary language Finnish Family History Family History, If Any: MOTHER (Diabetes mellitus, from diabetic complications). SISTER (Pancreatic cancer). Hx Contributory? No (Analia Koroma MD) Review of Systems Review of Systems Constitutional: Denies: chills, fever. Eyes: Reports: no symptoms. Ears, Nose, Throat, Mouth: Reports: no symptoms. Respiratory: Reports: short of breath. Denies: cough, sputum production. Cardiovascular: Denies: chest pain, palpitations, peripheral edema. Gastrointestinal/Abdominal: Reports: no symptoms. Genitourinary: Reports: no symptoms. Musculoskeletal: Denies: back pain. Skin: Reports: no symptoms. Neurological/Psychological: Reports: no symptoms. All Other Systems: Reviewed and Negative (Analia Koroma MD) Physical Exam Physical Exam General Appearance: well developed/nourished, alert, awake, anxious, moderate distress, severe distress, obese Head: atraumatic, normal appearance Eyes: Bilateral: normal appearance, PERRL, normal inspection. Ears, Nose, Throat, Mouth: hearing grossly normal Neck: normal inspection, supple, full range of motion Respiratory: accessory muscle use, rales, respiratory distress Cardiovascular: tachycardia Peripheral Pulses: 2+ radial (R), 2+ radial (L) Gastrointestinal: soft Neurologic/Psych: no motor/sensory deficits, awake, alert Skin: cyanosis, diaphoresis Core Measures ACS in differential dx? Yes CVA/TIA Diagnosis No Sepsis Present: No Sepsis Focused Exam Completed? No (Analia Koroma MD) Progress Differential Diagnoses I considered the following diagnoses in my evaluation of the patient: [CHF, PNEUMONIA, PE, PTX, PLEURAL EFFUSION, COPD EXACERBATION] Plan of Care: Orders Procedure Date/time Status LACTIC ACID 05/27 1007 Active BLOOD CULTURE 05/27 715 Active BIPAP 05/27 714 Complete BIPAP 05/27 712 Complete ARTERIAL BLOOD GAS (GEN) 05/27 707 Complete Telemetry/Visual Communications Instructor 05/27 707 Active Tovar, Insertion/Removal/Asses 05/27 707 Active CULTURE,URINE 05/27 707 Active TROPONIN LEVEL 05/27 707 Complete PARTIAL THROMBOPLASTIN TIME 05/27 707 Complete PROTHROMBIN TIME 05/27 707 Complete LACTIC ACID 05/27 707 Complete COMPREHENSIVE METABOLIC PANEL 05/27 707 Complete CBC WITHOUT DIFFERENTIAL 05/27 707 Complete B-TYPE NATRIURETIC PEP (BNP) 05/27 707 Complete EKG 05/27 659 Active Current Medications Sig/Larissa Start time Last Medication Dose Stop Time Status Admin Azithromycin 500 MG ONCE ONE 05/27 845 UNVr (Zithromax) 05/27 944 Sodium Chloride 250 ML (Normal Saline 0.9%) Ceftriaxone Sodium 1,000 MG ONCE ONE 05/27 845 AC (Rocephin) 05/27 08 Laboratory Tests 05/27/17 0800: pH 7.36, pCO2 44, pO2 78 L, HCO3 24, ABG O2 Sat (Measured) 94.0 L, P-50 (Temp Corrected) N, Carboxyhemoglobin 0 L, O2 Concentration % .50, Respiration Rate 24, O2 Delivery Method BIPAP, Vent Mode ST, Expiratory Pressure 6, Inspiratory Pressure 20, Phlebotomy Draw Site RIGHT RADIAL 05/27/17 07: Anion Gap 12, Estimated GFR 26 L, BUN/Creatinine Ratio 20.0, Glucose 222 H, Lactic Acid 1.0, Calcium 9.6, Total Bilirubin 0.7, AST 20, ALT 36, Alkaline Phosphatase 66, Troponin I 0.03, Oqp-F-Gqgudefgclb Pept 4650 H, Total Protein 7.0, Albumin 4.0, Globulin 3.0, Albumin/Globulin Ratio 1.3, PT 12.0, INR 1.14, APTT 29, CBC w Diff NO MAN DIFF REQ, RBC 3.69 L, MCV 86.9, MCH 29.2, RDW 16.9 H, MPV 8.6, Gran % 79.2 H, Lymphocytes % 9.9 L, Monocytes % 6.6, Eosinophils % 3.9, Basophils % 0.4, Absolute Granulocytes 7.0 H, Absolute Lymphocytes 0.9 L, Absolute Monocytes 0.6, Absolute Eosinophils 0.3, Absolute Basophils 0, PUBS MCHC 33.6 Microbiology 05/27 08 BLOOD: Blood Culture - RECD 05/27 715 BLOOD: Blood Culture - ORD 05/27 707 URINE ROUT: Urine Culture - ORD Diagnostic Imaging: Viewed by Me: Radiology Read. Discussed w/RAD: Radiology Read. Initial ED EKG: PENDING Hand-Off Endorsed To: Jude Leon MD Endorsed Time: 714 Pending: EKG, labs, Xray (Ga GUTIERREZ,Analia) CXR Impression: PATIENT: JOSELYN DUARTE PRESENT AGE: 71 PATIENT ACCOUNT NO: [id number] : 45 LOCATION: [facility] ORDERING PHYSICIAN: Analia Koroma MD SERVICE DATE: 05/27/17 EXAM TYPE: RAD - XRY-PORTABLE CHEST XRAY EXAMINATION: XR PORTABLE CHEST CLINICAL INFORMATION: Respiratory distress. COMPARISON: Multiple chest x-rays, the most recent 04/19/2017. TECHNIQUE: Portable frontal 75 degrees semierect view of the chest was obtained. FINDINGS: The lung kern are moderately well-expanded. There are patchy areas of opacification in the lower zones bilaterally, as well as in the right upper zone. The cardiac silhouette is prominent, but appears stable. There is a small left pleural effusion. Fullness in the right greater than left israel may be consistent with lymphadenopathy, which appears unchanged. There is mild prominence of the central pulmonary vasculature, demonstrated on prior imaging. There are no pneumothoraces. The aortic arch is calcified. A spinal stimulator lead is noted projected over the mid thoracic region. There are no acute osseous findings. IMPRESSION: 1. The study redemonstrates patchy areas of opacification in the lower zones bilaterally and in the right upper zone, which may be consistent with multifocal infiltrates. There is a small left pleural effusion. 2. There is stable cardiomegaly and prominence of the hilar regions. DICTATED BY : Nick Falcon MD DATE/TIME DICTATED:05/27/17742 AUDITING MANAGER:DEEP DATE/TIME TRANSCRIBED:05/27/17742 CONFIDENTIAL, DO NOT COPY WITHOUT APPROPRIATE AUTHORIZATION. <Electronically signed in Other Vendor System> SIGNED BY: Nick Falcon MD 05/27/17 0758 Comments: 05/27/2017 7:33:22 AM patient signed out to me by Dr. Koroma at shift lead recoverer. Worsening shortness of breath over the past 2 days. Patient placed on BiPAP. Physical examination reveals crackles bilaterally. I reevaluated Joselyn moments ago and she seems improved. Appears clinically more comfortable, blood pressure decreasing. Oxygen saturation mid 90s. 05/27/2017 7:45:13 AM the respiratory therapist has repositioned patient's CPAP mask with resulting better fit. The patient appears again clinically comfortable and is answering questions. Oxygen saturation 95%. Heart rate low 90s. 05/27/2017 8:30:07 AM over patient's chest x-ray shows patchy infiltrates potentially consistent with multifocal pneumonia, I do not feel that Joselyn is septic at this time. She does not have an indication of end organ dysfunction for severe sepsis. In addition she does not have an elevated white blood cell count and her temperature does not meet criterion for Sirs. In addition given the patient's elevated BNP and blood pressure a possibility of CHF remains high. (Carolyn GUTIERREZ,Jude Barros) Departure Departure Disposition: STILL A PATIENT Condition: Stable Referrals: Deneen Preciado MD, MD,Jacinta (PCP/Family) Marcio Mtz MD Departure Forms: Customer Survey General Discharge Information (Ga GUTIERREZ,Analia) Departure Clinical Impression Primary Impression: CHF (congestive heart failure) Qualifiers: Congestive heart failure type: unspecified congestive heart failure type Congestive heart failure chronicity: acute on chronic Qualified Code: I50.9 - Heart failure, unspecified Secondary Impressions: Hypertensive urgency, Pulmonary infiltrates, Renal insufficiency, Respiratory distress Admission Note Spoke With: Malissa Abarca MD Documentation of Exam: Documentation of any treatments & extenuating circumstances including Concerns Regarding Discharge (functional status, medication knowledge or non-compliance, living conditions, etc.) that warrant an admission rather than observation: Patient presented in severe respiratory distress requiring BiPAP and substantial oxygen supplementation. In addition she was hypertensive and tachycardic requiring sublingual nitroglycerin and nitroglycerin paste for acute blood pressure control. The patient continues to require BiPAP for respiratory support and cannot be treated safely as an outpatient. She would return in worse clinical condition. Patient's current prognosis is guarded. She now requires substantial oxygen supplementation and monitoring of 02 saturations and vital signs. Oxygen should be supplemented and weaned accordingly. Blood pressure should be monitored and controlled. Intake and output and daily weights should also be monitored. Since it is unclear as to whether the patient 's multiple pulmonary infiltrates represents infectious etiology or atypical congestive heart failure, patient should be covered presumptively with antibiotics and pulmonary and/or infectious disease consultation should be considered. Given the possibility of congestive heart failure cardiology consultation should also be considered. Serial troponin determinations should be monitored and treated accordingly. I feel patient will require multiple day hospitalization. (Carolyn GUTIERREZ,Jude Barros) Critical Care Note Critical Care Note Critical Care Time: 30-74 min (Analia Koroma MD) Critical Care Note Critical Care Time: 30-74 min (Jude Leon MD)
[2017-05-27 07:36] LABS: ABSOLUTE BASOPHIL COUNT 0 /CUMM (0.0-0.2); ABSOLUTE EOSINOPHIL COUNT 0.3 /CUMM (0.0-0.7); ABSOLUTE LYMPH COUNT 0.9 /CUMM (1.2-3.4); ABSOLUTE MONOCYTE COUNT 0.6 /CUMM (0.10-0.60); BASOPHIL % 0.4 % (0.0-2.0); EOSINOPHIL % 3.9 % (0-5); GRANULOCYTE % 79.2 % (42.2-75.2); MEAN CORPUSCULAR HGB 29.2 PG (27.0-31.0); MEAN CORPUSCULAR HGB CONC 33.6 G/DL (33.0-37.0); MEAN CORPUSCULAR VOLUME 86.9 FL (81.0-99.0); MEAN PLATELET VOLUME 8.6 FL (7.4-10.4); PLATELET COUNT 216 /CUMM (130-400); RBC DISTRIBUTION WIDTH 16.9 % (11.5-14.5); RED BLOOD CELL CT 3.69 /CUMM (4.20-5.40); WHITE BLOOD CELL COUNT 8.8 /CUMM (4.8-10.8)
[2017-05-27 07:37] LABS: PTT 29 SEC (25-37)
--- NOTE | 2017-05-27 07:58 | RADIOLOGY REPORT ---
EXAMINATION: XR PORTABLE CHEST CLINICAL INFORMATION: Respiratory distress. COMPARISON: Multiple chest x-rays, the most recent 04/19/2017. TECHNIQUE: Portable frontal 75 degrees semierect view of the chest was obtained. FINDINGS: The lung kern are moderately well-expanded. There are patchy areas of opacification in the lower zones bilaterally, as well as in the right upper zone. The cardiac silhouette is prominent, but appears stable. There is a small left pleural effusion. Fullness in the right greater than left israel may be consistent with lymphadenopathy, which appears unchanged. There is mild prominence of the central pulmonary vasculature, demonstrated on prior imaging. There are no pneumothoraces. The aortic arch is calcified. A spinal stimulator lead is noted projected over the mid thoracic region. There are no acute osseous findings. IMPRESSION: 1. The study redemonstrates patchy areas of opacification in the lower zones bilaterally and in the right upper zone, which may be consistent with multifocal infiltrates. There is a small left pleural effusion. 2. There is stable cardiomegaly and prominence of the hilar regions.
[2017-05-27] MEDS ORDERED: BUMETANIDE1 M1 PO (08:14)
[2017-05-27] MEDS ORDERED: DULOXETINE HCL60 MG PO (08:16)
[2017-05-27] MEDS ORDERED: LEVOCETIRIZINE D5 M1 PO (08:17)
--- NOTE | 2017-05-27 09:13 | History & Physical ---
Wanad Solano 05/27/17 0912: General Information and HPI MD Statement: I have seen and personally examined JOSELYN WEBER and documented this H&P. The patient is a 71 year old F who presented with a patient stated chief complaint of [shortnes of breath]. Source of Information: patient, old records Exam Limitations: no limitations History of Present Illness: Joselyn Weber is a 71 year old woman who was known to be in her usual state of health until 2-3 days ago. She has a PMHx of CAD, LCX stent x 2 ( dx'ed 2013- last cath in August 2016 revealing non obstructive CAD, increased LVEDP) HTN, HLD , Insulin treated DM, Chronic renal insufficiency, CHF, anemia, COPD, Anemia, SUSIE on CPAP, Spinal stenosis( spinal stimulator ). She was brought to [facility] w/ a chief concern of an acute onset of dyspnea x 2 days. Patient was discharged on 04/19/2017 after being treated for multifactorial acute on chronic hypoxic respiratory failure 07/09 , by that time, CT proven multi lobar pneumonia and underlying mild CHF, which required noninvasive ventilation and IV antibiotic therapy (coverage for CPAP and HCAP) and she was discharged home on continuous home oxygen of 2 L. Patient is independent and ambulatory and lives with her , has been compliant with her medication diet and oxygen. According to patient she has been in her normal state of health up until 2-3 days ago when she developed worsening shortness of breath, which was highlighted by increasing in oxygen demand from 2-3 L within 2 days and or frequent rescue inhaler use, which was accompanied by development of dry cough. She had a sick contact last week with her grand son who had the very mild symptoms of upper respiratory tract infection. She denies developing any , URI symptoms, sore throat, fever, shaking chills, joint pain, GI and symptoms. Neither she reports chest pain, palpitation, feeling clammy sweaty feeling nauseous or vomiting, no recent weight weight gain, increase in abdominal girth,no peripheral edema. She has chronic back pain which has continued to be a problem secondary to her spinal stenosis. Allergies/Medications Allergies: Coded Allergies: povidone-iodine (From BETADINE) (RASH 04/11/17) ITCH PER ANTIBIOTIC ORDER SHEET OF 12/04/16 (SJS) soap (From BETADINE) (RASH 04/11/17) PARISH Inhibitors (Mild, COUGH 04/11/17) Home Med list Albuterol Sulfate (Proair Hfa) 90 MCG HFA.AER.AD 1 PUF INH AD PRN ASTHMA ( Reported) Alpha Lipoic Acid 300 MG CAPSULE 1 CAP PO BID NEUROPATHIC PAIN (Reported) Amlodipine Besylate 5 MG TABLET 1 TAB PO DAILY htn Aspirin (Ecotrin*) 81 MG TABLET.DR 1 TAB PO QPM HEART/BLOOD (Reported) Bumetanide 1 MG TABLET 1 TAB PO BID WATER RETENTION (Reported) Carvedilol (Coreg) 25 MG TABLET 1 TAB PO BID HTN (Reported) Cholecalciferol (Vitamin D3) (Vitamin D) 1,000 UNIT TABLET 1 TAB PO DAILY VITAMIN SUPPORT (Reported) Duloxetine HCl 60 MG CAPSULE.DR 1 CAP PO DAILY MOOD (Reported) Ferrous Sulfate 325 MG (65 MG IRON) TABLET.DR 1 TAB PO DAILY ANEMIA Fish Oil/Borage/Flax/Om3,6,9#1 (Triple [place] Complex 3-6-9) 400 MG-400 MG-400 MG CAPSULE 1 TAB PO DAILY SUPPLEMENT (Reported) Fluticasone/Salmeterol (Advair 250-50 Diskus) 1 EACH BLST.W.DEV 1 PUF INH BID ASTHMA (Reported) Hydralazine HCl 100 MG TABLET 1 TAB PO TID BP (Reported) Insulin Aspart (Novolog) 100 UNIT/ML VIAL 1 UNIT SQ SEE ADMIN DM (Reported) 80-120 TAKE 2 U 121-150 TAKE 4U 151-200 TAKE 6U 200-300 TAKE 8U ABOVE 300 CALL PCP Insulin Detemir (Levemir Flextouch) 100 UNIT/ML (3 ML) INSULN.PEN 30-40 UNITS SC DAILY DM (Reported) Irbesartan (Avapro) 150 MG TABLET 1 TAB PO DAILY HYPERTENSION Isosorbide Mononitrate (Isosorbide Mononitrate ER) 60 MG TAB.ER.24H 60 MG PO DAILY htn Levocetirizine Dihydrochloride 5 MG TABLET 1 TAB PO QPM UNKNOWN (Reported) Levothyroxine Sodium 125 MCG TABLET 1 TAB PO DAILY AC THYROID (Reported) Rosuvastatin Calcium (Crestor) 20 MG TABLET 1 TAB PO QPM HYPERCHOLESTROLEMIA (Reported) Compliance With Home Meds: GOOD Past History Travel History Traveled to [place] past 21 day No Medical History Neurological: vertigo EENT: SLEEP APNEA Cardiovascular: CHF, hypertension Respiratory: asthma, SLEEP APNEA NOCTURNAL CPAP Gastrointestinal: NONE Hepatic: NONE Renal: CKD 3 Musculoskeletal: SPINAL STENOSIS PAIN STIMULATOR Psychiatric: depression Endocrine: diabetes, HYPOTHYROID Blood Disorders: anemia Cancer(s): NONE CT TECH/Reproductive: NONE History of MRSA: No History of VRE: No History of CDIFF: No Influenza Vaccine: 03/31/17 Surgical History Surgical History: Parathyroidectomy carpal tunnel surgery trigger finger surgery Past Family/Social History Family History Relations & Conditions if any MOTHER (Diabetes mellitus, from diabetic complications). SISTER (Pancreatic cancer). Psychosocial History Who Do You Live With? spouse Services at Home: None Primary Language: Azeri Functional Ability ADLs Independent: dressing, eating, toileting, bathing. Ambulation: cane, Patient used a cane when outside the house but ambulates independently indoors. Review of Systems Review of Systems Constitutional: Denies: no symptoms, chills, diaphoresis, fever, malaise, weakness, unexplained weight loss. Respiratory: Reports: cough, short of breath, wheezing. Denies: orthopnea. GI: Reports: no symptoms. Musculoskeletal: Reports: back pain. Skin: Reports: no symptoms. All Other Systems: Reviewed and Negative Exam & Diagnostic Data Last 24 Hrs of Vital Signs/I&O Vital Signs Date Time Temp Pulse Resp B/P B/P Pulse O2 O2 Flow FiO2 Mean Ox Delivery Rate 05/27 1103 100.4 81 28 172/88 96 Non 9L ReBreather 05/27 1013 92 Nasal 6.0L Cannula 05/27 1006 100.5 78 30 177/81 96 CPAP 05/27 0959 75 97 05/27 0931 100.5 78 28 188/77 96 CPAP 05/27 0810 100.2 75 32 188/79 93 BIPAP 05/27 0745 88 198/90 05/27 0745 93 92 05/27 0730 97 20 220/98 05/27 0709 104 95 05/27 0700 102 36 249/112 99 BIPAP 100% Intake & Output 05/27 1600 05/27 0800 05/27 0000 Intake Total Output Total 300 Balance -300 Output, Urine 300 Physical Exam General Appearance Alert, Oriented X3, Cooperative, Moderate Distress Skin No Rashes, No Breakdown, No Significant Lesion HEENT PERRLA, Mucous Membr. moist/pink Neck Supple, No JVD Cardiovascular Normal S1, Normal S2, No S3 Lungs wheezing and prolonged expiratory wheezing Abdomen Soft Neurological Normal Speech Extremities No Edema Vascular Normal Pulses, Pulses Symmetrical Last 24 Hrs of Labs/Jose Alejandro: Laboratory Tests 05/27/17 1007: Lactic Acid Cancelled 05/27/17 0800: pH 7.36, pCO2 44, pO2 78 L, HCO3 24, ABG O2 Sat (Measured) 94.0 L, P-50 (Temp Corrected) N, Carboxyhemoglobin 0 L, O2 Concentration % .50, Respiration Rate 24, O2 Delivery Method BIPAP, Vent Mode ST, Expiratory Pressure 6, Inspiratory Pressure 20, Phlebotomy Draw Site RIGHT RADIAL 05/27/17 0715: Anion Gap 12, Estimated GFR 26 L, BUN/Creatinine Ratio 20.0, Glucose 222 H, Lactic Acid 1.0, Calcium 9.6, Total Bilirubin 0.7, AST 20, ALT 36, Alkaline Phosphatase 66, Troponin I 0.03, Iax-N-Lfmmljlgojm Pept 4650 H, Total Protein 7.0, Albumin 4.0, Globulin 3.0, Albumin/Globulin Ratio 1.3, PT 12.0, INR 1.14, APTT 29, CBC w Diff NO MAN DIFF REQ, RBC 3.69 L, MCV 86.9, MCH 29.2, RDW 16.9 H, MPV 8.6, Gran % 79.2 H, Lymphocytes % 9.9 L, Monocytes % 6.6, Eosinophils % 3.9, Basophils % 0.4, Absolute Granulocytes 7.0 H, Absolute Lymphocytes 0.9 L, Absolute Monocytes 0.6, Absolute Eosinophils 0.3, Absolute Basophils 0, PUBS MCHC 33.6 Microbiology 05/27 802 BLOOD: Blood Culture - RECD 05/27 715 BLOOD: Blood Culture - ORD 05/27 707 URINE ROUT: Urine Culture - ORD Diagnostic Data EKG Results 97 beats per minutes First degree AV block P mitrale Normal QT CXR Results 1. The study redemonstrates patchy areas of opacification in the lower zones bilaterally and in the right upper zone, which may be consistent with multifocal infiltrates. There is a small left pleural effusion. 2. There is stable cardiomegaly and prominence of the hilar regions. Assessment/Plan Assessment: 71-year-old pleasant woman with complicated past medical history and recent discharge for multifactorial acute on chronic hypoxic respiratory failure for, mainly, secondary to multilobar pneumonia and mild CHF decompensation was admitted to the hospital for acute on chronic hypoxic respiratory failure. Chest x-ray: Poor quality imaging; suggestive of multilobar infiltration and left-sided pleural effusion. Chest CT scan was ordered: Vital signs: Slight temperature of 100.200.500.5 and 100.4 Initial pressure of 249/112 last blood pressure is 177/81 Pertinent labs No leukocytosis left shift or bandemia, H&H: 10.8/32 AB.36/78 on BiPAP 50% TcQ6OXH2 of 24 and PaO2 78 Sodium 142 potassium 4.4 BUN 38, creatinine 1.9, glucose 222, lactic acid less than 2 ProBNP 4650 slightly higher than baseline List of active problems #1 acute on chronic hypoxic respiratory failure: Possibly multifactorial due to CAP or HCAP and/or bacterial or viral pneumonia and/or COPD exacerbation. #2 hypertension crisis #3 STEVE on CKD stage IIIB #4 diabetes2 w/o retinopathy on insulin #5 hypothyroidism #6 depression Plan #Acute on chronic hypoxic respiratory failure: We thought to be mostly multifactorial secondary to, either/and or, another multilobar PNA combined with an underlying mild CHF requiring NIV ( however, the presentation and PH/ex decreases the LR of CHF decompensation). Another possibility is an Upper respiratory viral infection that triggers her COPD and made her hypoxic. She was started on Ceftriaxone and Azithromycin for CAP. * Admit to general medical floor * Continue ceftriaxone 1 g IV daily * Continue azithromycin 500 mg IV daily * Follow up microbiology results * Daily CBC * In case of remaining febrile or worsening respiratory status broaden the antibiotic coverage for healthcare associated pneumonia (initiate coverage with vancomycin and ceftazidime) * Obtained repeat CT scan of the chest without IV contrast * Pulmonology consult with Dr. Miller was placed * TRC/nebs [id number] every 4 as needed * Continue home dose of Advair * IV Solu-Medrol 40 mg daily * Daily weights * Continue home dose of Bumetanide * Ins and outs controlled * Heart healthy diet * Low threshold for transfer to ICU #HTN urgency: she did not take her am medication; after receiving Nitrate SL blood pressure is around 180s. * Amlodipine 5mg daily, Hydralazine 100mg TID PO * Bumetanide 1mg BID * Isorbide MN 60 mg #STEVE on CKD Stage III B- close to base line, will recheck; slightly increased compared to her baseline of 1.5 * Pending CT scan results: Is negative pulmonary edema resume with gentle IV hydration #Hypothyroidism: Continue 125 mcg #CAD s/p stent: She was continued on ASA, Lipitor, and carvedilol and indoor #IDDM: Continue Levemir 15 U BID daily, and Novolog sliding scale. #Depression - Continue Cymbalta 60mg daily FC Hous keeping DVT PPx As Ranked By This Provider Problem List: 1. Diabetes mellitus 2. Hyperlipidemia 3. Hypothyroidism 4. Obesity 5. DVT prophylaxis 6. Pneumonia 7. SUSIE on CPAP 8. Hypertensive urgency 9. Pulmonary infiltrates 10. COPD (chronic obstructive pulmonary disease) 11. Fever 12. Chronic pain Core Measures/Misc (02/21) Acute Coronary Syndrome ACS Diagnosis: No Congestive Heart Failure Congestive Heart Failure Diagnosis Yes Last Known EF % 55 Cerebrovascular Accident CVA/TIA Diagnosis: No VTE (View Protocol) VTE Risk Factors CHF or Resp Failure No Mechanical VTE Prophylaxis d/t N/A MechProphylax Ordered No VTE Pharm Prophylaxis d/t NA PharmProphylax ordered Sepsis (View protocol) Sepsis Present: Yes Resident Review Statement Resident Statement: examined this patient, discussed with internet marketer, agreed with internet marketer, discussed with family, reviewed EMR data (avail), discussed with nursing , discussed with case mgmt, reviewed images, amended to note Bronwyn Garcia 05/27/17 6507: Attending MD Review Statement Attending Statement Attending MD Statement: examined this patient, discuss w/resident/PA/HVAC DESIGN MECHANICAL ENGINEER, agreed w/resident/PA/HVAC DESIGN MECHANICAL ENGINEER, discussed with family, reviewed EMR data (avail), discussed with nursing Attending Assessment/Plan: pt seen and examined at bedside. pt had an echo doen in april 2017 which showed stage 2 diastolic dysfunction, mild to moderate AR, RVSP of 48mm of hg. her last admission was for pneumonia. will get pulmonary consult and get a CT of the chest to evaluate further. will also get cardiology consult tomorrow . d/w pt and pts at bedside the care plan. pts integrated circuit fabricator is Dr Preciado.
[2017-05-27 12:23] VITALS: BP 260/100
[2017-05-27 12:43] VITALS: BP 210/80
[2017-05-27 13:59] VITALS: BP 182/80
--- NOTE | 2017-05-27 16:19 | CT SCAN REPORT ---
EXAMINATION: CT CHEST WITHOUT CONTRAST CLINICAL INFORMATION: Shortness of breath. Presumptive diagnosis of CHF versus pneumonia. COMPARISON: Chest x-ray dated 05/27/2017. CT scan of the chest dated 04/11/2017. TECHNIQUE: Multidetector volumetric CT imaging of the chest was obtained noncontrast. Sagittal and coronal reformations were obtained. DLP: 340.16 mGy-cm. FINDINGS: LUNGS: There are small bilateral posterior layering pleural effusions, which extend from the lung bases up to the lung apices, slightly larger on the right side than the left and overall larger compared to the prior exam. Compared to the prior exam, there are now diffuse bilateral patchy groundglass opacities, which are in a predominantly peribronchovascular distribution and are associated with air bronchograms. Findings are nonspecific and may represent interval development of multifocal pneumonitis (viral or atypical pneumonitis). However, there are also findings which would be compatible with and which would favor diffuse alveolar edema with subpleural reticulation, enlargement of the central vessels and septal thickening seen along with the bilateral enlarging pleural effusions. Close clinical correlation will be needed. The central airways are patent though mildly narrowed centrally due to the enlarged pulmonary vessels. Compared to the prior exam, there is now improved aeration in the previously densely consolidated left lower lobe and right lower lobe. No pneumothorax is seen. LYMPHOVASCULAR STRUCTURES: Aortic size normal. Mild atherosclerotic calcifications of the aorta are seen. Cardiac silhouette is enlarged. Moderate coronary artery calcifications is seen. No pericardial effusion. Abnormal mediastinal adenopathy is seen with 1.3 cm prevascular lymph nodes, 1.6 cm lower right paratracheal lymph nodes, 1.5 cm subcarinal lymph node, and 1 cm left AP window lymph nodes. Findings are unchanged from prior exam and may be reactive. The [place] are difficult to evaluate for adenopathy on noncontrast imaging. No definite axillary adenopathy is seen. THYROID GLAND: Markedly atrophic and suboptimally assessed. UPPER ABDOMEN: Included portions of the solid organs in the upper abdomen within normal limits. BONES: Multilevel moderate degenerative changes as seen in the thoracic spine. No suspicious focal findings. IMPRESSION: 1. Interval development of is bilateral groundglass opacities with associated septal thickening and peripheral subpleural reticulations. Findings are nonspecific, but in the setting of enlarging bilateral pleural effusions, cardiomegaly, enlarged central pulmonary vessels would favor alveolar pulmonary edema. Close clinical correlation is requested. Findings may also be related to multifocal diffuse pneumonitis (viral or atypical). 2. Persistent abnormal mediastinal adenopathy, unchanged from prior exam, likely reactive.
--- NOTE | 2017-05-27 17:05 | Admission Certification ---
Admission Certification Certification Statement - As attending physician, I certify that at the time of - admission, based on clinical presentation, severity of - symptoms, need for further diagnostic testing and - therapeutic interventions, and risk of adverse outcomes - without in-hospital treatment, in my clinical assessment, - this patient requires an acute hospital stay for a minimum - of two nights or longer. I have also considered psychsocial - factors such as support system, advanced age, financial - issues, cognitive issues, and failed out-patient treatments, - past re-admission history, safety of patient, and lack of - compliance as applicable. Specific rationale supporting this admission is: actue chf diastolic exacerbation and pneumonia
[2017-05-27 22:17] VITALS: BP 158/70
[2017-05-28 06:54] VITALS: BP 170/80
--- NOTE | 2017-05-28 07:34 | PN- Housestaff ---
Subjective Follow-up For: hypoxic respiratory failure Complaints: cough and rinorhea , swelling oh the right hand Tele-Events Since Last Visit: no event Subjective: patient was visited and examined this am. She did well last night on BiPAP. Currently saturating 94% on 3 L of oxygen nasal cannula. Vital signs showed slightly elevated blood pressure. Negative fluid balance of 460 Received an extra dose of IV Lasix 20 mg last night Tovar is in place Patient denies any chest pain, palpitation, edema, abdominal discomfort symptoms GI symptoms. Review of Systems Constitutional: Reports: see HPI. EENTM: Reports: see HPI. Cardiovascular: Reports: see HPI. Denies: chest pain, edema, orthopena, palpitations, peripheral edema, syncope. Respiratory: Reports: see HPI, cough, short of breath. Gastrointestinal: Reports: see HPI. Genitourinary: Reports: no symptoms. Musculoskeletal: Reports: no symptoms. Objective Last 24 Hrs of Vital Signs/I&O Vital Signs Date Time Temp Pulse Resp B/P B/P Pulse O2 O2 Flow FiO2 Mean Ox Delivery Rate 05/28 09 75 178/74 05/28 0900 75 178/74 05/28 0900 75 178/74 05/28 0900 75 178/74 05/28 0900 75 178/74 05/28 0858 75 178/74 05/28 0837 94 Nasal 3.0L Cannula 05/28 0837 85 94 05/28 0800 BIPAP 05/28 0654 97.8 56 18 170/80 96 BIPAP 05/28 0554 65 99 05/28 0318 67 05/28 0037 65 92 05/28 0000 BIPAP 40% 05/278 66 98 05/27 2217 97.8 68 18 158/70 99 05/27 2203 67 184/70 05/27 2203 67 184/70 05/27 2040 78 98 05/27 1805 BIPAP 50% 05/27 1727 79 192/80 05/27 1725 92 Nasal 7.0L Cannula 05/27 1645 98 BIPAP 60% 05/27 1645 70 98 05/27 1600 98 BIPAP 60% 05/27 1440 74 98 05/27 1359 99.2 80 17 182/80 97 05/27 1354 78 182/80 05/27 1354 182/80 05/27 1353 78 182/80 05/27 1243 210/80 12/21 1223 95 Non 100% ReBreather 05/27 1223 98.8 112 44 260/100 95 Non 100% ReBreather 05/27 1220 111 95 05/27 1103 100.4 81 28 172/88 96 Non 9L ReBreather 05/27 1100 BIPAP 50% Intake & Output 05/28 1600 05/28 0800 05/28 0000 Intake Total 205 488 Output Total 200 150 Balance 5 338 Intake, IV 5 8 Intake, Oral 200 480 Number 3 Bowel Movements Output, Urine 200 150 Physical Exam General Appearance: Alert, Oriented X3, Cooperative, Mild Distress HEENT: PERRLA Neck: No JVD Lungs: end expiratory wheeze, no crackles, decrease air movement Abdomen: Soft Neurological: Normal Speech Extremities: No Edema, right upper extremity swelling Current Medications: Current Medications Sig/Larissa Start time Last Medication Dose Route Stop Time Status Admin Acetaminophen 650 MG Q6P PRN 05/27 1245 AC 05/28 PO 0910 Acetaminophen 1,000 MG Q6P PRN 05/27 1245 AC IV Albuterol Sulfate 3 ML BID 05/27 2200 AC 05/28 INH 0835 Amlodipine Besylate 5 MG DAILY 05/27 1209 AC 05/28 PO 0900 Aspirin Buffered 81 MG QPM 05/27 2200 AC 05/27 PO 2203 Atorvastatin Calcium 20 MG DAILY 05/27 1216 AC 05/28 PO 0900 Azithromycin 500 MG DAILY 05/28 1000 AC 05/28 Sodium Chloride 250 ML IV 0901 Budesonide/ 2 PUF DAILY 05/27 1213 AC 05/28 Formoterol Fumarate INH 0907 Bumetanide 1 MG 1000,1400 05/28 1000 DC 05/28 PO 0901 Bumetanide 1 MG BID 05/27 1211 DC 05/27 PO 2203 Carvedilol 25 MG BID 05/27 1211 AC 05/28 PO 0900 Ceftriaxone Sodium 1,000 MG DAILY 05/28 1000 AC 05/28 IV 0901 Cholecalciferol 1,000 IU DAILY 05/28 1000 AC 05/28 PO 0901 Diphenhydramine HCl 25 MG ONCE ONE 05/28 0415 DC 05/28 PO 05/28 0416 0410 Duloxetine HCl 60 MG DAILY 05/28 1000 AC 05/28 PO 0900 Ferrous Sulfate 325 MG DAILY 05/28 1000 AC 05/28 PO 0900 Fish Oil 1,050 MG DAILY 05/28 1000 AC 05/28 PO 0901 Furosemide 20 MG ONCE ONE 05/27 1745 DC 05/27 IV 05/27 1746 1748 Furosemide 40 MG .STK-MED ONE 05/27 1743 DC IV 05/27 1744 Guaifenesin 600 MG Q12 05/28 1000 AC 05/28 PO 0910 Heparin Sodium 5,000 UNIT Q8 05/27 1400 AC 05/28 (Porcine) SC 0411 Hydralazine HCl 100 MG TID 05/27 1213 AC 05/28 PO 0900 Insulin Aspart 0 TIDAC 05/28 1200 AC SC Insulin Aspart 0 TIDAC 05/27 1700 DC 05/28 SC 0810 Insulin Detemir 15 UNITS BID 05/27 1225 AC 05/28 SC 0901 Isosorbide 60 MG DAILY 05/28 1000 AC 05/28 Mononitrate PO 0900 Levothyroxine Sodium 0.125 MG DAILY AC 05/27 1215 AC 05/28 PO 0410 Losartan Potassium 50 MG DAILY 05/28 1000 AC 05/28 PO 0900 Methylprednisolone 40 MG DAILY 05/27 1233 AC 05/28 IV 0901 Morphine Sulfate 4 MG Q4P PRN 05/27 1245 AC IV Non-Formulary 0 SEE ADMIN CRITERIA 05/27 1630 CAN Medication ANY Senna/Docusate Sodium 2 TAB AT BEDTIME 05/27 2200 AC 05/27 PO 2203 Last 24 Hrs of Lab/Jose Alejandro Results Last 24 Hrs of Labs/Mics: Laboratory Tests 05/28/17 0615: Anion Gap 14, Estimated GFR 21 L, BUN/Creatinine Ratio 25.2 H, CBC w Diff MAN DIFF ORDERED, RBC 3.15 L, MCV 87.5, MCH 29.8, RDW 16.9 H, MPV 9.2, Gran % 85.0 H, Lymphocytes % 7.9 L, Monocytes % 6.8, Eosinophils % 0, Basophils % 0.3, Absolute Granulocytes 6.3, Segmented Neutrophils 76 H, Band Neutrophils 9 H, Absolute Lymphocytes 0.6 L, Lymphocytes 10 L, Monocytes 5, Absolute Monocytes 0.5, Absolute Eosinophils 0, Absolute Basophils 0, Platelet Estimate VERIFIED BY SMEAR, Normocytic RBCs VERIFIED, Normochromic RBCs VERIFIED, PUBS MCHC 34.1 Microbiology 05/28 0957 NASOPHARYN: Influenza Virus A & B Rapid Smear - RECD 05/28 0637 STOOL: Clostridium difficile Toxin A & B - ORD Lines/Diet/Fluids Tovar Still Needed? Yes Assessment/Plan Assessment: 71-year-old pleasant woman with complicated past medical history SUSIE and chronic hypoxic respiratory failure on 2 lit home O2, SUSIE on CPAP, HFpHF, and previous multilobar pneumonia, COPD-asthma overlap syndrome was admitted hypoxic- respiratory failure. Pertinent data WBC 3.15 hemoglobin 9.4/hematocrit 27.5 Co2 21 ; sodium 141 ; potassium 3.8; BUN 58 from 38 ; and creatinine 2.[address] scan of the chest without IV contrast on 05/27/2017:1. Interval development of is bilateral groundglass opacities with associated septal thickening and peripheral subpleural reticulations. Findings are nonspecific, but in the setting of enlarging bilateral pleural effusions, cardiomegaly, enlarged central pulmonary vessels would favor alveolar pulmonary edema. Close clinical correlation is requested. Findings may also be related to multifocal diffuse pneumonitis (viral or atypical). 2. Persistent abnormal mediastinal adenopathy, unchanged from prior exam, likely reactive. Rapid flu test positive for influenza B List of active problems #Acute on chronic hypoxic respiratory failure: CT scan suggestive of nonspecific findings viral pneumonitis and diffuse alveolar edema (underlying CHF decompensation). * Continue admission on telemetry * Keep off antibiotics * Follow up microbiology results * C.diff screening * Daily CBC * Started patient on Tamiflu 75 mg by mouth twice a day * TRC/nebs [id number] every 4 as needed * Continue home dose of Advair * IV Solu-Medrol 40 mg daily * Daily weights * Avoid diuresis for worsening renal function * Ins and outs controlled; fluid restriction * Heart healthy diet * Low threshold for transfer to ICU if hypoxia get worse #HTN urgency: she did not take her am medication; after receiving Nitrate SL blood pressure is around 180s. * Amlodipine 5mg daily, Hydralazine 100mg TID PO * Bumetanide 1mg BID- hold * Isorbide MN 60 mg #STEVE on CKD Stage III B- close to base line, will recheck; slightly increased compared to her baseline of 1.5--> 2.3; possibly due to overdiuresis or cardiorenal syndrome * Hold diuretics and other nephrotoxic agents * Follow nephrology recommendation #Hypothyroidism: Continue 125 mcg #CAD s/p stent: She was continued on ASA, Lipitor, and carvedilol and indoor #IDDM: Continue Levemir 15 U BID daily, and Novolog sliding scale. #Depression - Continue Cymbalta 60mg daily Problem List: 1. Asthma 2. Diabetes mellitus 3. History of - hypertension 4. Hyperlipidemia 5. Hypothyroidism 6. METABOLIC SYNDROME 7. Obesity 8. Wound infection 9. DVT prophylaxis 10. Cellulitis 11. Pneumonia 12. SUSIE on CPAP 13. Acute on chronic kidney disease, stage 3 14. CHF (congestive heart failure) 15. Shingles 16. Acute kidney injury 17. Medication reaction 18. Altered mental status 19. Post herpetic neuralgia 20. Full code status 21. CHF (congestive heart failure) 22. Leg edema 23. CKD stage G3b/A1, GFR 30-44 and albumin creatinine ratio <30 mg/g 24. Hypocalcemia 25. Chest heaviness 26. Osteoarthritis 27. Hyponatremia 28. Hyperkalemia 29. Chronic kidney disease 30. Diabetes 31. Hypothyroidism 32. COPD exacerbation 33. Hypoxia 34. Orthostatic hypotension 35. Near syncope 36. Hypoglycemia 37. Adverse drug effect 38. Acute on chronic congestive heart failure 39. Pneumonia 40. Anemia 41. Depression 42. Acute prerenal azotemia 43. Fever 44. COPD (chronic obstructive pulmonary disease) 45. Respiratory distress 46. Pulmonary infiltrates 47. Renal insufficiency 48. Hypertensive urgency Pain Ratin Pain Location: na Pain Goal: Remain pain free Pain Plan: as plan Tomorrow's Labs & Rationales: as ordered
[2017-05-28 08:14] LABS: ABSOLUTE BASOPHIL COUNT 0 /CUMM (0.0-0.2); ABSOLUTE EOSINOPHIL COUNT 0 /CUMM (0.0-0.7); ABSOLUTE GRANULOCYTE CT 6.3 /CUMM (1.4-6.5); ABSOLUTE LYMPH COUNT 0.6 /CUMM (1.2-3.4); ABSOLUTE MONOCYTE COUNT 0.5 /CUMM (0.10-0.60); BASOPHIL % 0.3 % (0.0-2.0); EOSINOPHIL % 0 % (0-5); HEMATOCRIT 27.5 % (37-47); MEAN CORPUSCULAR HGB 29.8 PG (27.0-31.0); MEAN CORPUSCULAR HGB CONC 34.1 G/DL (33.0-37.0); MEAN CORPUSCULAR VOLUME 87.5 FL (81.0-99.0); MEAN PLATELET VOLUME 9.2 FL (7.4-10.4); PLATELET COUNT 191 /CUMM (130-400); RBC DISTRIBUTION WIDTH 16.9 % (11.5-14.5); RED BLOOD CELL CT 3.15 /CUMM (4.20-5.40); WHITE BLOOD CELL COUNT 7.4 /CUMM (4.8-10.8)
[2017-05-28 08:58] VITALS: BP 178/74
--- NOTE | 2017-05-28 11:32 | ULTRASOUND REPORT ---
EXAMINATION: DUPLEX VENOUS ULTRASOUND OF THE right UPPER EXTREMITY. CLINICAL HISTORY: Right upper extremity swelling COMPARISON: None. TECHNIQUE: Grayscale, color and Doppler ultrasound of the deep veins of the right upper extremity were performed. FINDINGS: The right internal jugular, subclavian and axillary veins demonstrate normal color Doppler flow suggesting patency. The right brachial and basilic veins are easily compressible and demonstrate normal color Doppler flow suggesting patency. The right cephalic vein is easily compressible suggesting patency. The right radial and ulnar veins are easily compressible suggesting patency. IMPRESSION: No thrombus identified within the veins of the right upper extremity. If clinical symptoms persist, consider repeat evaluation in 5-7 days.
--- NOTE | 2017-05-28 12:06 | PN- Att Addend ---
Attending MD Review Statement Attending Statement Attending MD Statement: examined this patient, discuss w/resident/PA/STRAWBERRY GROWER, agreed w/resident/PA/STRAWBERRY GROWER, reviewed EMR data (avail), discussed w/nursing, discussed w/ case mgmt Attending Assessment/Plan: Laboratory Tests 05/28/17 0957: Virus Culture Pending 05/28/17 0615: Anion Gap 14, Estimated GFR 21 L, BUN/Creatinine Ratio 25.2 H, CBC w Diff MAN DIFF ORDERED, RBC 3.15 L, MCV 87.5, MCH 29.8, RDW 16.9 H, MPV 9.2, Gran % 85.0 H, Lymphocytes % 7.9 L, Monocytes % 6.8, Eosinophils % 0, Basophils % 0.3, Absolute Granulocytes 6.3, Segmented Neutrophils 76 H, Band Neutrophils 9 H, Absolute Lymphocytes 0.6 L, Lymphocytes 10 L, Monocytes 5, Absolute Monocytes 0.5, Absolute Eosinophils 0, Absolute Basophils 0, Platelet Estimate VERIFIED BY SMEAR, Normocytic RBCs VERIFIED, Normochromic RBCs VERIFIED, PUBS MCHC 34.1 Microbiology 05/28 957 NASOPHARYN: Influenza Virus A & B Rapid Smear - COMP INFLUENZA TYPE B Vital Signs Date Time Temp Pulse Resp B/P B/P Pulse O2 O2 Flow FiO2 Mean Ox Delivery Rate 05/28 0900 75 178/74 05/28 0900 75 178/74 05/28 0900 75 178/74 05/28 0900 75 178/74 05/28 0900 75 178/74 05/28 0858 75 178/74 05/28 0837 94 Nasal 3.0L Cannula 05/28 0837 85 94 05/28 0800 BIPAP 05/28 0654 97.8 56 18 170/80 96 BIPAP 05/28 0554 65 99 05/28 0318 67 05/28 0037 65 92 05/28 0000 BIPAP 40% 05/27 2218 66 98 05/27 2217 97.8 68 18 158/70 99 05/27 2203 67 184/70 05/27 2203 67 184/70 05/27 2040 78 98 05/27 1805 BIPAP 50% 05/27 1727 79 192/80 05/27 1725 92 Nasal 7.0L Cannula 05/27 1645 98 BIPAP 60% 05/27 1645 70 98 05/27 1600 98 BIPAP 60% 05/27 1440 74 98 05/27 1359 99.2 80 17 182/80 97 05/27 1354 78 182/80 05/27 1354 182/80 05/27 1353 78 182/80 05/27 1243 210/80 05/27 1223 95 Non 100% ReBreather 05/27 1223 98.8 112 44 260/100 95 Non 100% ReBreather 05/27 1220 111 95 Acute respiratory failure in pt with positive influenza B- CT chest showing following findings. "Interval development of is bilateral groundglass opacities with associated septal thickening and peripheral subpleural reticulations. Findings are nonspecific, but in the setting of enlarging bilateral pleural effusions, cardiomegaly, enlarged central pulmonary vessels would favor alveolar pulmonary edema. Close clinical correlation is requested. Findings may also be related to multifocal diffuse pneumonitis (viral or atypical)." will start on tamiflu renal dosing. will put on contact precautions. will f/u on pulmonary recommendations. Diastolic chf - was given iv lasix 20mg last night but now renal functions worsening. so hold off on home diuretic for now. will get cardiology and renal consult. d/w pt the care plan.
[2017-05-28 13:42] VITALS: BP 154/58
--- NOTE | 2017-05-28 14:02 | Cons- Cardiology ---
General Information and HPI Consulting Request Date of Consult: 05/28/17 Requested By: Jose GUTIERREZ,Bronwyn Kimball Reason for Consult: Worsening shortness of breath in a patient with known heart disease and lung disease. Positive influenza rapid viral test. Source of Information: patient, old records Exam Limitations: no limitations History of Present Illness: The patient is a 71-year-old female who is followed in the office by Dr. Mtz, with history of coronary artery disease, status post stents 2 in 2013, hypertension, hyperlipidemia, diabetes mellitus, chronic renal insufficiency, heart failure with preserved ejection fraction. She presented to the hospital on Apr.11 with complaints of worsening shortness of breath over the past few days. She was initially admitted for pneumonia but subsequently became more short of breath and was thought to have a component of congestive heart failure as well. She was discharged finally after one week with diagnosis of multilobar pneumonia with underlying mild congestive heart failure on oxygen. She also developed some acute kidney injury and her creatinine stabilized at 1.4 on discharge. She was sent out on Bumex 1 mg daily. She was restarted on her other cardiac medications. Her echocardiogram in the hospital showed LVH with good systolic function and abnormal diastolic function. She had some mitral and aortic valve thickening. She had moderate pulmonary hypertension with right ventricular systolic pressure estimated to be 48 mmHg. She also had mild to moderate aortic regurgitation noted. The patient was doing well until 2 or 3 days ago when she began developing increasing shortness of breath and increasing oxygen demand. She called 911 and was found to be in acute respiratory distress by windows deployment technician. Initial evaluation in the emergency department included a positive rapid flu test for type B. Initial troponin is negative. EKG did not show any acute changes. Chest x-ray is suggestive of pulmonary vascular congestion but doesn't look a lot different from her older chest x-rays. BUN and creatinine have risen since admission and diuretics are currently on hold. Allergies/Medications Allergies: Coded Allergies: povidone-iodine (From BETADINE) (RASH 04/11/17) ITCH PER ANTIBIOTIC ORDER SHEET OF 12/04/16 (SJS) soap (From BETADINE) (RASH 04/11/17) PARISH Inhibitors (Mild, COUGH 04/11/17) Home Med List: Albuterol Sulfate (Proair Hfa) 90 MCG HFA.AER.AD 1 PUF INH AD PRN ASTHMA ( Reported) Alpha Lipoic Acid 300 MG CAPSULE 1 CAP PO BID NEUROPATHIC PAIN (Reported) Amlodipine Besylate 5 MG TABLET 1 TAB PO DAILY htn Aspirin (Ecotrin*) 81 MG TABLET.DR 1 TAB PO QPM HEART/BLOOD (Reported) Bumetanide 1 MG TABLET 1 TAB PO BID WATER RETENTION (Reported) Carvedilol (Coreg) 25 MG TABLET 1 TAB PO BID HTN (Reported) Cholecalciferol (Vitamin D3) (Vitamin D) 1,000 UNIT TABLET 1 TAB PO DAILY VITAMIN SUPPORT (Reported) Duloxetine HCl 60 MG CAPSULE. 1 CAP PO DAILY MOOD (Reported) Ferrous Sulfate 325 MG (65 MG IRON) TABLET.DR 1 TAB PO DAILY ANEMIA Fish Oil/Borage/Flax/Om3,6,9#1 (Triple [place] Complex 3-6-9) 400 MG-400 MG-400 MG CAPSULE 1 TAB PO DAILY SUPPLEMENT (Reported) Fluticasone/Salmeterol (Advair 250-50 Diskus) 1 EACH BLST.W.DEV 1 PUF INH BID ASTHMA (Reported) Hydralazine HCl 100 MG TABLET 1 TAB PO TID BP (Reported) Insulin Aspart (Novolog) 100 UNIT/ML VIAL 1 UNIT SQ SEE ADMIN DM (Reported) 80-120 TAKE 2 U 121-150 TAKE 4U 151-200 TAKE 6U 200-300 TAKE 8U ABOVE 300 CALL PCP Insulin Detemir (Levemir Flextouch) 100 UNIT/ML (3 ML) INSULN.PEN 30-40 UNITS SC DAILY DM (Reported) Irbesartan (Avapro) 150 MG TABLET 1 TAB PO DAILY HYPERTENSION Isosorbide Mononitrate (Isosorbide Mononitrate ER) 60 MG TAB.ER.24H 60 MG PO DAILY htn Levocetirizine Dihydrochloride 5 MG TABLET 1 TAB PO QPM UNKNOWN (Reported) Levothyroxine Sodium 125 MCG TABLET 1 TAB PO DAILY AC THYROID (Reported) Rosuvastatin Calcium (Crestor) 20 MG TABLET 1 TAB PO QPM HYPERCHOLESTROLEMIA (Reported) Current Medications: Current Medications Sig/Larissa Start time Last Medication Dose Route Stop Time Status Admin Acetaminophen 650 MG Q6P PRN 05/27 1245 AC 05/28 PO 0910 Acetaminophen 1,000 MG Q6P PRN 05/27 1245 AC IV Albuterol Sulfate 3 ML BID 05/27 2200 AC 05/28 INH 0835 Amlodipine Besylate 5 MG DAILY 05/27 1209 AC 05/28 PO 0900 Aspirin Buffered 81 MG QPM 05/27 2200 AC 05/27 PO 2203 Atorvastatin Calcium 20 MG DAILY 05/27 1216 AC 05/28 PO 0900 Azithromycin 500 MG DAILY 05/28 1000 AC 05/28 Sodium Chloride 250 ML IV 0901 Budesonide/ 2 PUF DAILY 05/27 1213 AC 05/28 Formoterol Fumarate INH 0907 Bumetanide 1 MG 1000,1400 05/28 1000 DC 05/28 PO 0901 Bumetanide 1 MG BID 05/27 1211 DC 05/27 PO 2203 Carvedilol 25 MG BID 05/27 1211 AC 05/28 PO 0900 Ceftriaxone Sodium 1,000 MG DAILY 05/28 1000 AC 05/28 IV 0901 Cholecalciferol 1,000 IU DAILY 05/28 1000 AC 05/28 PO 0901 Diphenhydramine HCl 25 MG ONCE ONE 05/28 0415 DC 05/28 PO 05/28 0416 0410 Duloxetine HCl 60 MG DAILY 05/28 1000 AC 05/28 PO 0900 Ferrous Sulfate 325 MG DAILY 05/28 1000 AC 05/28 PO 0900 Fish Oil 1,050 MG DAILY 05/28 1000 AC 05/28 PO 0901 Furosemide 20 MG ONCE ONE 05/27 1745 DC 05/27 IV 05/27 1746 1748 Furosemide 40 MG .STK-MED ONE 05/27 1743 DC IV 05/27 1744 Guaifenesin 600 MG Q12 05/28 1000 AC 05/28 PO 0910 Heparin Sodium 5,000 UNIT Q8 05/27 1400 AC 05/28 (Porcine) SC 1246 Hydralazine HCl 100 MG TID 05/27 1213 AC 05/28 PO 0900 Insulin Aspart 0 TIDAC 05/28 1200 AC 05/28 SC 1246 Insulin Aspart 0 TIDAC 05/27 1700 DC 05/28 SC 0810 Insulin Detemir 15 UNITS BID 05/27 1225 AC 05/28 SC 0901 Isosorbide 60 MG DAILY 05/28 1000 AC 05/28 Mononitrate PO 0900 Levothyroxine Sodium 0.125 MG DAILY AC 05/27 1215 AC 05/28 PO 0410 Losartan Potassium 50 MG DAILY 05/28 1000 DC 05/28 PO 0900 Methylprednisolone 40 MG DAILY 05/27 1233 AC 05/28 IV 0901 Morphine Sulfate 4 MG Q4P PRN 05/27 1245 AC IV Non-Formulary 0 SEE ADMIN CRITERIA 05/27 1630 CAN Medication ANY Oseltamivir Phosphate 30 MG DAILY 05/29 1000 AC PO 06/02 0959 Oseltamivir Phosphate 75 MG BID 05/28 1034 DC 05/28 PO 06/01 1033 1134 Senna/Docusate Sodium 2 TAB AT BEDTIME 05/27 2200 AC 05/27 PO 2202 Review of Systems Review of Systems: She has no other complaints in the review of systems Past History Travel History Traveled to [place] past 21 day No Medical History Blood Transfusion Hx: Yes Neurological: vertigo EENT: SLEEP APNEA Cardiovascular: CHF, hypertension Respiratory: asthma, pneumonia, SLEEP APNEA NOCTURNAL CPAP Gastrointestinal: NONE Hepatic: NONE Renal: CKD 3 Musculoskeletal: SPINAL STENOSIS 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 SISTER (Pancreatic cancer). Psychosocial History Where Do You Live? Home Who Do You Live With? spouse Services at Home: None Primary Language: Kazakh Smoking Status: Never Smoked Functional Ability ADLs Independent: dressing, eating, toileting, bathing. Ambulation: cane, Patient used a cane when outside the house but ambulates independently indoors. Exam & Diagnostic Data Vital Signs and I&O Vital Signs Date Time Temp Pulse Resp B/P B/P Pulse O2 O2 Flow FiO2 Mean Ox Delivery Rate 05/28 1342 98.7 72 18 154/58 95 Nasal 3.0L Cannula 05/28 09 75 178/74 05/28 0900 75 178/74 05/28 0900 75 178/74 05/28 0900 75 178/74 05/28 0900 75 178/74 05/28 0858 75 178/74 05/28 0837 94 Nasal 3.0L Cannula 05/28 0837 85 94 05/28 0800 BIPAP 05/28 0654 97.8 56 18 170/80 96 BIPAP 05/28 0554 65 99 05/28 0318 67 05/28 0037 65 92 05/28 0000 BIPAP 40% 05/27 2218 66 98 05/27 2217 97.8 68 18 158/70 99 05/273 67 184/70 05/27 2203 67 184/70 05/270 78 98 05/27 1805 BIPAP 50% 05/27 1727 79 192/80 05/27 1725 92 Nasal 7.0L Cannula 05/27 1645 98 BIPAP 60% 05/27 1645 70 98 05/27 1600 98 BIPAP 60% 05/27 1440 74 98 Intake & Output 05/28 1600 05/28 0800 05/28 0000 05/27 1600 05/27 0800 05/27 0000 Intake Total 205 488 Output Total 200 150 600 Balance 5 338 -600 Intake, IV 5 8 Intake, Oral 200 480 Number 3 Bowel Movements Output, Urine 200 150 600 Patient 188 lb 191 lb Weight Weight Bed scale Bed scale Measurement Method Physical Exam: Small obese late middle-aged female in no acute distress. HEENT exam normal Neck veins not distended Carotids are difficult to feel Chest mild expiratory wheezing, no rales Heart regular rhythm, no murmurs, gallops or rubs. Abdomen benign Extremities good pulses no edema Labs/Jose Alejandro Results: Laboratory Tests 05/28 05/28 05/27 0957 0615 1007 Chemistry Sodium (137 - 145 mmol/L) 141 Potassium (3.5 - 5.1 mmol/L) 3.8 Chloride (98 - 107 mmol/L) 107 Carbon Dioxide (22 - 30 mmol/L) 21 L Anion Gap (5 - 16) 14 BUN (7 - 17 mg/dL) 58 H Creatinine (0.5 - 1.0 mg/dL) 2.3 H Estimated GFR (>60 ml/min) 21 L BUN/Creatinine Ratio (7 - 25 %) 25.2 H Lactic Acid Cancelled Hematology CBC w Diff MAN DIFF ORDERED WBC (4.8 - 10.8 /CUMM) 7.4 RBC (4.20 - 5.40 /CUMM) 3.15 L Hgb (12.0 - 16.0 G/DL) 9.4 L Hct (37 - 47 %) 27.5 L MCV (81.0 - 99.0 FL) 87.5 MCH (27.0 - 31.0 PG) 29.8 RDW (11.5 - 14.5 %) 16.9 H Plt Count (130 - 400 /CUMM) 191 MPV (7.4 - 10.4 FL) 9.2 Gran % (42.2 - 75.2 %) 85.0 H Lymphocytes % (20.5 - 51.1 %) 7.9 L Monocytes % (1.7 - 9.3 %) 6.8 Eosinophils % (0 - 5 %) 0 Basophils % (0.0 - 2.0 %) 0.3 Absolute Granulocytes (1.4 - 6.5 /CUMM) 6.3 Segmented Neutrophils (42.2 - 75.2 %) 76 H Band Neutrophils (0.0 - 5.0 %) 9 H Absolute Lymphocytes (1.2 - 3.4 /CUMM) 0.6 L Lymphocytes (20.5 - 51.1 %) 10 L Monocytes (1.7 - 9.3 %) 5 Absolute Monocytes (0.10 - 0.60 /CUMM) 0.5 Absolute Eosinophils (0.0 - 0.7 /CUMM) 0 Absolute Basophils (0.0 - 0.2 /CUMM) 0 Platelet Estimate (ADEQUATE) VERIFIED BY SMEAR Normocytic RBCs VERIFIED Normochromic RBCs VERIFIED PUBS MCHC (33.0 - 37.0 G/DL) 34.1 Serology Virus Culture Pending 05/27 05/27 0800 0715 Blood Gas pH (7.35 - 7.45 PH) 7.36 pCO2 (35 - 45 TORR) 44 pO2 (80 - 100 TORR) 78 L HCO3 (21 - 28 MEQ/L) 24 ABG O2 Sat (Measured) (>96.0 %) 94.0 L P-50 (Temp Corrected) N Carboxyhemoglobin (1.5 - 5.0 %) 0 L O2 Concentration % .50 Respiration Rate (BPM) 24 O2 Delivery Method BIPAP Vent Mode ST Expiratory Pressure (CM H2O P) 6 Inspiratory Pressure (CM H2O P) 20 Chemistry Sodium (137 - 145 mmol/L) 142 Potassium (3.5 - 5.1 mmol/L) 4.4 Chloride (98 - 107 mmol/L) 105 Carbon Dioxide (22 - 30 mmol/L) 24 Anion Gap (5 - 16) 12 BUN (7 - 17 mg/dL) 38 H Creatinine (0.5 - 1.0 mg/dL) 1.9 H Estimated GFR (>60 ml/min) 26 L BUN/Creatinine Ratio (7 - 25 %) 20.0 Glucose (65 - 99 mg/dL) 222 H Lactic Acid (0.7 - 2.1 mmol/L) 1.0 Calcium (8.4 - 10.2 mg/dL) 9.6 Total Bilirubin (0.2 - 1.3 mg/dL) 0.7 AST (14 - 36 U/L) 20 ALT (9 - 52 U/L) 36 Alkaline Phosphatase (<127 U/L) 66 Troponin I (< 0.11 ng/ml) 0.03 Kyj-C-Bspnnbmzsaz Pept (<125 pg/mL) 4650 H Total Protein (6.3 - 8.2 g/dL) 7.0 Albumin (3.5 - 5.0 g/dL) 4.0 Globulin (1.9 - 4.2 gm/dL) 3.0 Albumin/Globulin Ratio (1.1 - 2.2 %) 1.3 Coagulation PT (9.4 - 12.5 SEC) 12.0 INR (0.90 - 1.19) 1.14 APTT (25 - 37 SEC) 29 Hematology CBC w Diff NO MAN DIFF REQ WBC (4.8 - 10.8 /CUMM) 8.8 RBC (4.20 - 5.40 /CUMM) 3.69 L Hgb (12.0 - 16.0 G/DL) 10.8 L Hct (37 - 47 %) 32.0 L MCV (81.0 - 99.0 FL) 86.9 MCH (27.0 - 31.0 PG) 29.2 RDW (11.5 - 14.5 %) 16.9 H Plt Count (130 - 400 /CUMM) 216 MPV (7.4 - 10.4 FL) 8.6 Gran % (42.2 - 75.2 %) 79.2 H Lymphocytes % (20.5 - 51.1 %) 9.9 L Monocytes % (1.7 - 9.3 %) 6.6 Eosinophils % (0 - 5 %) 3.9 Basophils % (0.0 - 2.0 %) 0.4 Absolute Granulocytes (1.4 - 6.5 /CUMM) 7.0 H Absolute Lymphocytes (1.2 - 3.4 /CUMM) 0.9 L Absolute Monocytes (0.10 - 0.60 /CUMM) 0.6 Absolute Eosinophils (0.0 - 0.7 /CUMM) 0.3 Absolute Basophils (0.0 - 0.2 /CUMM) 0 PUBS MCHC (33.0 - 37.0 G/DL) 33.6 Miscellaneous Phlebotomy Draw Site RIGHT RADIAL Diagnostic Data EKG Results EKG shows sinus rhythm rate of 97, first degree AV block, right axis deviation, borderline inferior T changes. CXR Results PATIENT: JOSELYN DUARTE PRESENT AGE: 71 PATIENT ACCOUNT NO: [id number] : 45 LOCATION: [facility] ORDERING PHYSICIAN: Analia Koroma MD SERVICE DATE: 05/27/17 EXAM TYPE: RAD - XRY-PORTABLE CHEST XRAY EXAMINATION: XR PORTABLE CHEST CLINICAL INFORMATION: Respiratory distress. COMPARISON: Multiple chest x-rays, the most recent 04/19/2017. TECHNIQUE: Portable frontal 75 degrees semierect view of the chest was obtained. FINDINGS: The lung kern are moderately well-expanded. There are patchy areas of opacification in the lower zones bilaterally, as well as in the right upper zone. The cardiac silhouette is prominent, but appears stable. There is a small left pleural effusion. Fullness in the right greater than left [place] may be consistent with lymphadenopathy, which appears unchanged. There is mild prominence of the central pulmonary vasculature, demonstrated on prior imaging. There are no pneumothoraces. The aortic arch is calcified. A spinal stimulator lead is noted projected over the mid thoracic region. There are no acute osseous findings. IMPRESSION: 1. The study redemonstrates patchy areas of opacification in the lower zones bilaterally and in the right upper zone, which may be consistent with multifocal infiltrates. There is a small left pleural effusion. 2. There is stable cardiomegaly and prominence of the hilar regions. DICTATED BY: Nick Falcon MD DATE/TIME DICTATED:05/27/17742 SECONDARY SPANISH TEACHER:DEEP DATE/TIME TRANSCRIBED:05/27/17742 CONFIDENTIAL, DO NOT COPY WITHOUT APPROPRIATE AUTHORIZATION. <Electronically signed in Other Vendor System> SIGNED BY: Nick Falcon MD 05/27/17 0758 Other Results IMPRESSION: 1. Interval development of is bilateral groundglass opacities with associated septal thickening and peripheral subpleural reticulations. Findings are nonspecific, but in the setting of enlarging bilateral pleural effusions, cardiomegaly, enlarged central pulmonary vessels would favor alveolar pulmonary edema. Close clinical correlation is requested. Findings may also be related to multifocal diffuse pneumonitis (viral or atypical). 2. Persistent abnormal mediastinal adenopathy, unchanged from prior exam, likely reactive. DICTATED BY: Melly Francois MD DATE/TIME DICTATED:05/27/171555 SECONDARY SPANISH TEACHER:DEEP DATE/TIME TRANSCRIBED:05/27/171555 Assessment/Plan Assessment/Plan The patient presents with increasing respiratory distress initially requiring BiPAP. She seems to be much improved at this time on just nasal oxygen. The presentation is not totally clear as to whether this represents a pulmonary issue versus congestive heart failure. Interestingly she has a positive rapid flu test. She has responded to diuretics, but her renal function has deteriorated significantly. I agree with holding diuretics for now and monitoring her BUN and creatinine closely. I would get another troponin for completeness. If this is negative then she can come off the monitor. I recommend pulmonary consultation as she is known to the speech language pathologist prn for their opinion. Copies To: Ilana GUTIERREZ,Deneen Main; Marcio Mtz MD Consult Acknowledgment - Thank you for your consult request.
--- NOTE | 2017-05-28 15:30 | Cons- Pulmonary ---
General Information and HPI Consulting Request Date of Consult: 05/28/17 Requested By: Dr. Chang Reason for Consult: Shortness of breath. Source of Information: patient, family, old records Exam Limitations: no limitations History of Present Illness: The patient is a 71 year old female with an extensive past history including significant obstructive sleep apnea on nocturnal CPAP, HTN, HLD, Insulin dependent DM, chronic renal insufficiency, CHF, anemia, COPD, spinal stenosis s/ p spinal stimulator with chronic pain. She was brought to [facility] with worsening dyspnea which began 2 days prior to admission. Of note, the patient was discharged on 04/19/2017 after being treated for multifactorial acute on chronic hypoxic respiratory failure. She had a CT at that time that showed multi lobar pneumonia and underlying mild CHF, which required noninvasive ventilation and IV antibiotic therapy. She was discharged to home on continuous home oxygen of 2 L. She developed a cough and dyspnea 2 days prior to admission , noting she required transient BIPAP. The patient was pancultured (negative so far but positive for influenza) and she was started on Tamiflu, ceftriaxone and azithro. Her CT of the chest is suggestive of pulmonary edema, however superimposed pneumonia can not be excluded. She is on solumedrol 40 mg daily, however she is not currently wheezing. She is on 3 lpm oxygen with saturations in the mid to high 90s. She reports feeling improved since her admission. She has chronic anemia without complaints of bleeding. Her renal function has worsenend since admission and diuretics are being held per cardiology. Allergies/Medications Allergies: Coded Allergies: povidone-iodine (From BETADINE) (RASH 04/11/17) ITCH PER ANTIBIOTIC ORDER SHEET OF 12/04/16 (SJS) soap (From BETADINE) (RASH 04/11/17) PARISH Inhibitors (Mild, COUGH 04/11/17) Home Med List: Albuterol Sulfate (Proair Hfa) 90 MCG HFA.AER.AD 1 PUF INH AD PRN ASTHMA ( Reported) Alpha Lipoic Acid 300 MG CAPSULE 1 CAP PO BID NEUROPATHIC PAIN (Reported) Amlodipine Besylate 5 MG TABLET 1 TAB PO DAILY htn Aspirin (Ecotrin*) 81 MG TABLET.DR 1 TAB PO QPM HEART/BLOOD (Reported) Bumetanide 1 MG TABLET 1 TAB PO BID WATER RETENTION (Reported) Carvedilol (Coreg) 25 MG TABLET 1 TAB PO BID HTN (Reported) Cholecalciferol (Vitamin D3) (Vitamin D) 1,000 UNIT TABLET 1 TAB PO DAILY VITAMIN SUPPORT (Reported) Duloxetine HCl 60 MG CAPSULE.DR 1 CAP PO DAILY MOOD (Reported) Ferrous Sulfate 325 MG (65 MG IRON) TABLET.DR 1 TAB PO DAILY ANEMIA Fish Oil/Borage/Flax/Om3,6,9#1 (Triple [place] Complex 3-6-9) 400 MG-400 MG-400 MG CAPSULE 1 TAB PO DAILY SUPPLEMENT (Reported) Fluticasone/Salmeterol (Advair 250-50 Diskus) 1 EACH BLST.W.DEV 1 PUF INH BID ASTHMA (Reported) Hydralazine HCl 100 MG TABLET 1 TAB PO TID BP (Reported) Insulin Aspart (Novolog) 100 UNIT/ML VIAL 1 UNIT SQ SEE ADMIN DM (Reported) 80-120 TAKE 2 U 121-150 TAKE 4U 151-200 TAKE 6U 200-300 TAKE 8U ABOVE 300 CALL PCP Insulin Detemir (Levemir Flextouch) 100 UNIT/ML (3 ML) INSULN.PEN 30-40 UNITS SC DAILY DM (Reported) Irbesartan (Avapro) 150 MG TABLET 1 TAB PO DAILY HYPERTENSION Isosorbide Mononitrate (Isosorbide Mononitrate ER) 60 MG TAB.ER.24H 60 MG PO DAILY htn Levocetirizine Dihydrochloride 5 MG TABLET 1 TAB PO QPM UNKNOWN (Reported) Levothyroxine Sodium 125 MCG TABLET 1 TAB PO DAILY AC THYROID (Reported) Rosuvastatin Calcium (Crestor) 20 MG TABLET 1 TAB PO QPM HYPERCHOLESTROLEMIA (Reported) Current Medications: Current Medications Sig/Larissa Start time Last Medication Dose Route Stop Time Status Admin Acetaminophen 650 MG Q6P PRN 05/27 1245 AC 05/28 PO 0910 Acetaminophen 1,000 MG Q6P PRN 05/27 1245 AC IV Albuterol Sulfate 3 ML BID 05/27 220 AC 05/28 INH 0835 Amlodipine Besylate 5 MG DAILY 05/27 1209 AC 05/28 PO 0900 Aspirin Buffered 81 MG QPM 05/27 2200 AC 05/27 PO 2203 Atorvastatin Calcium 20 MG DAILY 05/27 1216 AC 05/28 PO 0900 Azithromycin 500 MG DAILY 05/28 1000 AC 05/28 Sodium Chloride 250 ML IV 0901 Budesonide/ 2 PUF DAILY 05/27 1213 AC 05/28 Formoterol Fumarate INH 0907 Bumetanide 1 MG 1000,1400 05/28 1000 DC 05/28 PO 0901 Bumetanide 1 MG BID 05/27 1211 DC 05/27 PO 2203 Carvedilol 25 MG BID 05/27 1211 AC 05/28 PO 0900 Ceftriaxone Sodium 1,000 MG DAILY 05/28 1000 AC 05/28 IV 0901 Cholecalciferol 1,000 IU DAILY 05/28 1000 AC 05/28 PO 0901 Diphenhydramine HCl 25 MG ONCE ONE 05/28 0415 DC 05/28 PO 05/28 0416 0410 Duloxetine HCl 60 MG DAILY 05/28 1000 AC 05/28 PO 0900 Ferrous Sulfate 325 MG DAILY 05/28 1000 AC 05/28 PO 0900 Fish Oil 1,050 MG DAILY 05/28 1000 AC 05/28 PO 0901 Furosemide 20 MG ONCE ONE 05/27 1745 DC 05/27 IV 05/27 1746 1748 Furosemide 40 MG .STK-MED ONE 05/27 1743 DC IV 05/27 1744 Guaifenesin 600 MG Q12 05/28 1000 AC 05/28 PO 0910 Heparin Sodium 5,000 UNIT Q8 05/27 1400 AC 05/28 (Porcine) SC 1246 Hydralazine HCl 100 MG TID 05/27 1213 AC 05/28 PO 0900 Insulin Aspart 0 TIDAC 05/28 1200 AC 05/28 SC 1246 Insulin Aspart 0 TIDAC 05/27 1700 DC 05/28 SC 0810 Insulin Detemir 15 UNITS BID 05/27 1225 AC 05/28 SC 0901 Isosorbide 60 MG DAILY 05/28 1000 AC 05/28 Mononitrate PO 0900 Levothyroxine Sodium 0.125 MG DAILY AC 05/27 1215 AC 05/28 PO 0410 Losartan Potassium 50 MG DAILY 05/28 1000 DC 05/28 PO 0900 Methylprednisolone 40 MG DAILY 05/27 1233 AC 05/28 IV 0901 Morphine Sulfate 4 MG Q4P PRN 05/27 1245 AC IV Non-Formulary 0 SEE ADMIN CRITERIA 05/27 1630 CAN Medication ANY Oseltamivir Phosphate 30 MG DAILY 05/29 1000 AC PO 06/02 0959 Oseltamivir Phosphate 75 MG BID 05/28 1034 DC 05/28 PO 06/01 1033 1134 Senna/Docusate Sodium 2 TAB AT BEDTIME 05/27 2200 AC 05/27 PO 3 Review of Systems Review of Systems All Other Systems: Reviewed and Negative Past History Travel History Traveled to [place] past 21 day No Medical History Blood Transfusion Hx: Yes Neurological: vertigo EENT: SLEEP APNEA Cardiovascular: CHF, hypertension Respiratory: asthma, pneumonia, SLEEP APNEA NOCTURNAL CPAP Gastrointestinal: NONE Hepatic: NONE Renal: CKD 3 Musculoskeletal: SPINAL STENOSIS PAIN STIMULATOR Psychiatric: anxiety, depression Endocrine: diabetes, HYPOTHYROID Blood Disorders: anemia Cancer(s): NONE PHYSICIAN PRACTICE CONSULTANT/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 SISTER (Pancreatic cancer). Psychosocial History Where Do You Live? Home Who Do You Live With? spouse Services at Home: None Primary Language: Trinidadian Smoking Status: Never Smoked Functional Ability ADLs Independent: dressing, eating, toileting, bathing. Ambulation: cane, Patient used a cane when outside the house but ambulates independently indoors. Exam & Diagnostic Data Last 24 Hrs of Vital Signs/I&O Vital Signs Date Time Temp Pulse Resp B/P B/P Pulse O2 O2 Flow FiO2 Mean Ox Delivery Rate 05/28 1342 98.7 72 18 154/58 95 Nasal 3.0L Cannula 05/28 09 75 178/74 05/28 0900 75 178/74 05/28 0900 75 178/74 05/28 0900 75 178/74 05/28 0900 75 178/74 05/28 0858 75 178/74 05/28 0837 94 Nasal 3.0L Cannula 05/28 0837 85 94 05/28 0800 BIPAP 05/28 0654 97.8 56 18 170/80 96 BIPAP 05/28 0554 65 99 05/28 0318 67 05/28 0037 65 92 05/28 0000 BIPAP 40% 05/27 2218 66 98 05/27 2217 97.8 68 18 158/70 99 05/27 2203 67 184/70 05/27 2203 67 184/70 05/270 78 98 05/27 1805 BIPAP 50% 05/27 1727 79 192/80 05/27 1725 92 Nasal 7.0L Cannula 05/27 1645 98 BIPAP 60% 12/21 1645 70 98 05/27 1600 98 BIPAP 60% Intake & Output 05/28 1600 05/28 0800 05/28 0000 Intake Total 1211 205 488 Output Total 200 200 150 Balance 1011 5 338 Intake, IV 271 5 8 Intake, Oral 940 200 480 Number 1 3 Bowel Movements Output, Urine 200 200 150 Patient 188 lb Weight Weight Bed scale Measurement Method Physical Exam General Appearance: no apparent distress, alert, awake, comfortable Head: atraumatic, normal appearance Eyes: Bilateral: PERRL. Neck: supple Respiratory: decreased breath sounds, crackles, rhonchi Cardiovascular: S1 and S2 heard Gastrointestinal: normal bowel sounds, soft, non-tender Extremities: no edema Skin: intact, normal color, warm/dry Last 48 Hrs of Labs/Jose Alejandro: Laboratory Tests 05/28/17 0957: Virus Culture Pending 05/28/17 0615: Anion Gap 14, Estimated GFR 21 L, BUN/Creatinine Ratio 25.2 H, CBC w Diff MAN DIFF ORDERED, RBC 3.15 L, MCV 87.5, MCH 29.8, RDW 16.9 H, MPV 9.2, Gran % 85.0 H, Lymphocytes % 7.9 L, Monocytes % 6.8, Eosinophils % 0, Basophils % 0.3, Absolute Granulocytes 6.3, Segmented Neutrophils 76 H, Band Neutrophils 9 H, Absolute Lymphocytes 0.6 L, Lymphocytes 10 L, Monocytes 5, Absolute Monocytes 0.5, Absolute Eosinophils 0, Absolute Basophils 0, Platelet Estimate VERIFIED BY SMEAR, Normocytic RBCs VERIFIED, Normochromic RBCs VERIFIED, PUBS MCHC 34.1 05/27/17 1007: Lactic Acid Cancelled 05/27/17 0800: pH 7.36, pCO2 44, pO2 78 L, HCO3 24, ABG O2 Sat (Measured) 94.0 L, P-50 (Temp Corrected) N, Carboxyhemoglobin 0 L, O2 Concentration % .50, Respiration Rate 24, O2 Delivery Method BIPAP, Vent Mode ST, Expiratory Pressure 6, Inspiratory Pressure 20, Phlebotomy Draw Site RIGHT RADIAL 05/27/17 0715: Anion Gap 12, Estimated GFR 26 L, BUN/Creatinine Ratio 20.0, Glucose 222 H, Lactic Acid 1.0, Calcium 9.6, Total Bilirubin 0.7, AST 20, ALT 36, Alkaline Phosphatase 66, Troponin I 0.03, Zpy-S-Kjwjcrrrbsn Pept 4650 H, Total Protein 7.0, Albumin 4.0, Globulin 3.0, Albumin/Globulin Ratio 1.3, PT 12.0, INR 1.14, APTT 29, CBC w Diff NO MAN DIFF REQ, RBC 3.69 L, MCV 86.9, MCH 29.2, RDW 16.9 H, MPV 8.6, Gran % 79.2 H, Lymphocytes % 9.9 L, Monocytes % 6.6, Eosinophils % 3.9, Basophils % 0.4, Absolute Granulocytes 7.0 H, Absolute Lymphocytes 0.9 L, Absolute Monocytes 0.6, Absolute Eosinophils 0.3, Absolute Basophils 0, PUBS MCHC 33.6 Microbiology 05/28 0957 NASOPHARYN: Influenza Virus A & B Rapid Smear - COMP INFLUENZA TYPE B Diagnostic Data CXR Results 1. The study redemonstrates patchy areas of opacification in the lower zones bilaterally and in the right upper zone, which may be consistent with multifocal infiltrates. There is a small left pleural effusion. 2. There is stable cardiomegaly and prominence of the hilar regions. Other Results CT chest: 1. Interval development of is bilateral groundglass opacities with associate septal thickening and peripheral subpleural reticulations. Findings are nonspecific, but in the setting of enlarging bilateral pleural effusions, cardiomegaly, enlarged central pulmonary vessels would favor alveolar pulmonary edema. Close clinical correlation is requested. Findings may also be related to multifocal diffuse pneumonitis (viral or atypical). 2. Persistent abnormal mediastinal adenopathy, unchanged from prior exam, likely reactive. Lower extremity doppler: No thrombus identified within the veins of the right upper extremity. If clinical symptoms persist, consider repeat evaluation in 5-7 days. Assessment/Plan Impression/Plan: 1. Possible multilobar pneumonia, respiratory failure requiring temporary BIPAP , influenza swab positive. 2. Recurrent congestive heart failure. 3. History of hypertension. 4. Chronic anemia without evidence of active bleeding. 5. Chronic kidney disease, stage III, secondary to hypertensive/diabetic nephrosclerosis. Diuretics on hold due to worsening renal function. 6. History of obstructive sleep apnea, on nocturnal nasal CPAP. 7. History diabetes. 8. Hypothyroidism, on Synthroid. 9. History of asthma/COPD. Recommendations: * Continue ceftriaxone and azithro. * Follow up cultures. * Please check a follow-up PA and lateral chest x-ray tomorrow for ongoing evaluation. * Continue nocturnal CPAP. * Taper oxygen for saturations greater than 92%. * Monitor ambulatory oxygen saturations and titrate supplemental O2 for a saturation greater than 88% with activity and greater than 92% at rest. * Continue Symbicort and albuterol. * Continue nebs/TRC. * Attempt to wean solumedrol down to off as tolerated. * Continue home medications as per primary medicine team. * DVT prophylaxis at all times. * Continue all supportive care. Consult Acknowledgment - Thank you for your consult request.
--- NOTE | 2017-05-28 15:34 | Cons- Nephrology ---
General Information and HPI Consulting Request Date of Consult: 05/28/17 Requested By: Jose GUTIERREZ,Bronwyn Kimball History of Present Illness: Ms. Weber is a pleasant 71 yo F with known CKD III followed by Dr. Mitchell in our office with a baseline creatinine in the high 1's. She recently developed increasing SOB after a sick contact and had her diuretics doubled for increasing edema. She was admitted yesterday with SOB rhinorrhea and was diagnosed with influenza B. Cr is elevated at 2.3 and I am asked to see her for the same Allergies/Medications Allergies: Coded Allergies: povidone-iodine (From BETADINE) (RASH 04/11/17) ITCH PER ANTIBIOTIC ORDER SHEET OF 12/04/16 (SJS) soap (From BETADINE) (RASH 04/11/17) PARISH Inhibitors (Mild, COUGH 04/11/17) Home Med List: Albuterol Sulfate (Proair Hfa) 90 MCG HFA.AER.AD 1 PUF INH AD PRN ASTHMA ( Reported) Alpha Lipoic Acid 300 MG CAPSULE 1 CAP PO BID NEUROPATHIC PAIN (Reported) Amlodipine Besylate 5 MG TABLET 1 TAB PO DAILY htn Aspirin (Ecotrin*) 81 MG TABLET.DR 1 TAB PO QPM HEART/BLOOD (Reported) Bumetanide 1 MG TABLET 1 TAB PO BID WATER RETENTION (Reported) Carvedilol (Coreg) 25 MG TABLET 1 TAB PO BID HTN (Reported) Cholecalciferol (Vitamin D3) (Vitamin D) 1,000 UNIT TABLET 1 TAB PO DAILY VITAMIN SUPPORT (Reported) Duloxetine HCl 60 MG CAPSULE.DR 1 CAP PO DAILY MOOD (Reported) Ferrous Sulfate 325 MG (65 MG IRON) TABLET.DR 1 TAB PO DAILY ANEMIA Fish Oil/Borage/Flax/Om3,6,9#1 (Triple [place] Complex 3-6-9) 400 MG-400 MG-400 MG CAPSULE 1 TAB PO DAILY SUPPLEMENT (Reported) Fluticasone/Salmeterol (Advair 250-50 Diskus) 1 EACH BLST.W.DEV 1 PUF INH BID ASTHMA (Reported) Hydralazine HCl 100 MG TABLET 1 TAB PO TID BP (Reported) Insulin Aspart (Novolog) 100 UNIT/ML VIAL 1 UNIT SQ SEE ADMIN DM (Reported) 80-120 TAKE 2 U 121-150 TAKE 4U 151-200 TAKE 6U 200-300 TAKE 8U ABOVE 300 CALL PCP Insulin Detemir (Levemir Flextouch) 100 UNIT/ML (3 ML) INSULN.PEN 30-40 UNITS SC DAILY DM (Reported) Irbesartan (Avapro) 150 MG TABLET 1 TAB PO DAILY HYPERTENSION Isosorbide Mononitrate (Isosorbide Mononitrate ER) 60 MG TAB.ER.24H 60 MG PO DAILY htn Levocetirizine Dihydrochloride 5 MG TABLET 1 TAB PO QPM UNKNOWN (Reported) Levothyroxine Sodium 125 MCG TABLET 1 TAB PO DAILY AC THYROID (Reported) Rosuvastatin Calcium (Crestor) 20 MG TABLET 1 TAB PO QPM HYPERCHOLESTROLEMIA (Reported) Current Medications: Current Medications Sig/Larissa Start time Last Medication Dose Route Stop Time Status Admin Acetaminophen 650 MG Q6P PRN 05/27 1245 AC 05/28 PO 0910 Acetaminophen 1,000 MG Q6P PRN 05/27 1245 AC IV Albuterol Sulfate 3 ML BID 05/27 2200 AC 05/28 INH 0835 Amlodipine Besylate 5 MG DAILY 05/27 1209 AC 05/28 PO 0900 Aspirin Buffered 81 MG QPM 05/27 2200 AC 05/27 PO 2203 Atorvastatin Calcium 20 MG DAILY 05/27 1216 AC 05/28 PO 0900 Azithromycin 500 MG DAILY 05/28 1000 AC 05/28 Sodium Chloride 250 ML IV 0901 Budesonide/ 2 PUF DAILY 05/27 1213 AC 05/28 Formoterol Fumarate INH 0907 Bumetanide 1 MG 1000,1400 05/28 1000 DC 05/28 PO 0901 Bumetanide 1 MG BID 05/27 1211 DC 05/27 PO 2203 Carvedilol 25 MG BID 05/27 1211 AC 05/28 PO 0900 Ceftriaxone Sodium 1,000 MG DAILY 05/28 1000 AC 05/28 IV 0901 Cholecalciferol 1,000 IU DAILY 05/28 1000 AC 05/28 PO 0901 Diphenhydramine HCl 25 MG ONCE ONE 05/28 0415 DC 05/28 PO 05/28 0416 0410 Duloxetine HCl 60 MG DAILY 05/28 1000 AC 05/28 PO 0900 Ferrous Sulfate 325 MG DAILY 05/28 1000 AC 05/28 PO 0900 Fish Oil 1,050 MG DAILY 05/28 1000 AC 05/28 PO 0901 Furosemide 20 MG ONCE ONE 05/27 1745 DC 05/27 IV 05/27 1746 1748 Furosemide 40 MG .STK-MED ONE 05/27 1743 DC IV 05/27 1744 Guaifenesin 600 MG Q12 05/28 1000 AC 05/28 PO 0910 Heparin Sodium 5,000 UNIT Q8 05/27 1400 AC 05/28 (Porcine) SC 1246 Hydralazine HCl 100 MG TID 05/27 1213 AC 05/28 PO 0900 Insulin Aspart 0 TIDAC 05/28 1200 AC 05/28 SC 1246 Insulin Aspart 0 TIDAC 05/27 1700 DC 05/28 SC 0810 Insulin Detemir 15 UNITS BID 05/27 1225 AC 05/28 SC 0901 Isosorbide 60 MG DAILY 05/28 1000 AC 05/28 Mononitrate PO 0900 Levothyroxine Sodium 0.125 MG DAILY AC 05/27 1215 AC 05/28 PO 0410 Losartan Potassium 50 MG DAILY 05/28 1000 DC 05/28 PO 0900 Methylprednisolone 40 MG DAILY 05/27 1233 AC 05/28 IV 0901 Morphine Sulfate 4 MG Q4P PRN 05/27 1245 AC IV Non-Formulary 0 SEE ADMIN CRITERIA 05/27 1630 CAN Medication ANY Oseltamivir Phosphate 30 MG DAILY 05/29 1000 AC PO 06/02 0959 Oseltamivir Phosphate 75 MG BID 05/28 1034 DC 05/28 PO 06/01 1033 1134 Senna/Docusate Sodium 2 TAB AT BEDTIME 05/27 2200 AC 05/27 PO 2203 Review of Systems Review of Systems: As in HPI Past History Travel History Traveled to [place] past 21 day No Medical History Blood Transfusion Hx: Yes Neurological: vertigo EENT: SLEEP APNEA Cardiovascular: CHF, hypertension Respiratory: asthma, pneumonia, SLEEP APNEA NOCTURNAL CPAP Gastrointestinal: NONE Hepatic: NONE Renal: CKD 3 Musculoskeletal: SPINAL STENOSIS PAIN STIMULATOR Psychiatric: anxiety, depression Endocrine: diabetes, HYPOTHYROID Blood Disorders: anemia Cancer(s): NONE FLOAT NURSE/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 SISTER (Pancreatic cancer). Psychosocial History Where Do You Live? Home Who Do You Live With? spouse Services at Home: None Primary Language: Indonesian Smoking Status: Never Smoked Functional Ability ADLs Independent: dressing, eating, toileting, bathing. Ambulation: cane, Patient used a cane when outside the house but ambulates independently indoors. Exam & Diagnostic Data Vital Signs and I&O pleasant F NAD 154/58 72 98 Skin neg rash Eyes anicteric ENT moist Lungs clear Cor RRR Abd sof tN/t Ext tr edema Results Pertinent Lab Results: Laboratory Tests 05/28 05/28 05/27 0957 0615 1007 Chemistry Sodium (137 - 145 mmol/L) 141 Potassium (3.5 - 5.1 mmol/L) 3.8 Chloride (98 - 107 mmol/L) 107 Carbon Dioxide (22 - 30 mmol/L) 21 L Anion Gap (5 - 16) 14 BUN (7 - 17 mg/dL) 58 H Creatinine (0.5 - 1.0 mg/dL) 2.3 H Estimated GFR (>60 ml/min) 21 L BUN/Creatinine Ratio (7 - 25 %) 25.2 H Lactic Acid Cancelled Hematology CBC w Diff MAN DIFF ORDERED WBC (4.8 - 10.8 /CUMM) 7.4 RBC (4.20 - 5.40 /CUMM) 3.15 L Hgb (12.0 - 16.0 G/DL) 9.4 L Hct (37 - 47 %) 27.5 L MCV (81.0 - 99.0 FL) 87.5 MCH (27.0 - 31.0 PG) 29.8 RDW (11.5 - 14.5 %) 16.9 H Plt Count (130 - 400 /CUMM) 191 MPV (7.4 - 10.4 FL) 9.2 Gran % (42.2 - 75.2 %) 85.0 H Lymphocytes % (20.5 - 51.1 %) 7.9 L Monocytes % (1.7 - 9.3 %) 6.8 Eosinophils % (0 - 5 %) 0 Basophils % (0.0 - 2.0 %) 0.3 Absolute Granulocytes (1.4 - 6.5 /CUMM) 6.3 Segmented Neutrophils (42.2 - 75.2 %) 76 H Band Neutrophils (0.0 - 5.0 %) 9 H Absolute Lymphocytes (1.2 - 3.4 /CUMM) 0.6 L Lymphocytes (20.5 - 51.1 %) 10 L Monocytes (1.7 - 9.3 %) 5 Absolute Monocytes (0.10 - 0.60 /CUMM) 0.5 Absolute Eosinophils (0.0 - 0.7 /CUMM) 0 Absolute Basophils (0.0 - 0.2 /CUMM) 0 Platelet Estimate (ADEQUATE) VERIFIED BY SMEAR Normocytic RBCs VERIFIED Normochromic RBCs VERIFIED PUBS MCHC (33.0 - 37.0 G/DL) 34.1 Serology Virus Culture Pending 05/27 05/27 0800 0715 Blood Gas pH (7.35 - 7.45 PH) 7.36 pCO2 (35 - 45 TORR) 44 pO2 (80 - 100 TORR) 78 L HCO3 (21 - 28 MEQ/L) 24 ABG O2 Sat (Measured) (>96.0 %) 94.0 L P-50 (Temp Corrected) N Carboxyhemoglobin (1.5 - 5.0 %) 0 L O2 Concentration % .50 Respiration Rate (BPM) 24 O2 Delivery Method BIPAP Vent Mode ST Expiratory Pressure (CM H2O P) 6 Inspiratory Pressure (CM H2O P) 20 Chemistry Sodium (137 - 145 mmol/L) 142 Potassium (3.5 - 5.1 mmol/L) 4.4 Chloride (98 - 107 mmol/L) 105 Carbon Dioxide (22 - 30 mmol/L) 24 Anion Gap (5 - 16) 12 BUN (7 - 17 mg/dL) 38 H Creatinine (0.5 - 1.0 mg/dL) 1.9 H Estimated GFR (>60 ml/min) 26 L BUN/Creatinine Ratio (7 - 25 %) 20.0 Glucose (65 - 99 mg/dL) 222 H Lactic Acid (0.7 - 2.1 mmol/L) 1.0 Calcium (8.4 - 10.2 mg/dL) 9.6 Total Bilirubin (0.2 - 1.3 mg/dL) 0.7 AST (14 - 36 U/L) 20 ALT (9 - 52 U/L) 36 Alkaline Phosphatase (<127 U/L) 66 Troponin I (< 0.11 ng/ml) 0.03 Tnh-D-Ywlocqlzmew Pept (<125 pg/mL) 4650 H Total Protein (6.3 - 8.2 g/dL) 7.0 Albumin (3.5 - 5.0 g/dL) 4.0 Globulin (1.9 - 4.2 gm/dL) 3.0 Albumin/Globulin Ratio (1.1 - 2.2 %) 1.3 Coagulation PT (9.4 - 12.5 SEC) 12.0 INR (0.90 - 1.19) 1.14 APTT (25 - 37 SEC) 29 Hematology CBC w Diff NO MAN DIFF REQ WBC (4.8 - 10.8 /CUMM) 8.8 RBC (4.20 - 5.40 /CUMM) 3.69 L Hgb (12.0 - 16.0 G/DL) 10.8 L Hct (37 - 47 %) 32.0 L MCV (81.0 - 99.0 FL) 86.9 MCH (27.0 - 31.0 PG) 29.2 RDW (11.5 - 14.5 %) 16.9 H Plt Count (130 - 400 /CUMM) 216 MPV (7.4 - 10.4 FL) 8.6 Gran % (42.2 - 75.2 %) 79.2 H Lymphocytes % (20.5 - 51.1 %) 9.9 L Monocytes % (1.7 - 9.3 %) 6.6 Eosinophils % (0 - 5 %) 3.9 Basophils % (0.0 - 2.0 %) 0.4 Absolute Granulocytes (1.4 - 6.5 /CUMM) 7.0 H Absolute Lymphocytes (1.2 - 3.4 /CUMM) 0.9 L Absolute Monocytes (0.10 - 0.60 /CUMM) 0.6 Absolute Eosinophils (0.0 - 0.7 /CUMM) 0.3 Absolute Basophils (0.0 - 0.2 /CUMM) 0 PUBS MCHC (33.0 - 37.0 G/DL) 33.6 Miscellaneous Phlebotomy Draw Site RIGHT RADIAL Assessment/Plan Assessment/Recommendations Assessment: Mild STEVE in the setting of CKD III. I suspect the STEVE is related to diuresis. She has minimal edema and I agree with holding diuretics for now. Would continue to monitor daily labs. Pt now on Tamiflu for influenza. will follow with you. Recommendations: .
[2017-05-28 16:39] VITALS: BP 170/64
[2017-05-28 22:00] VITALS: BP 180/78
[2017-05-29 01:07] VITALS: BP 160/58
[2017-05-29 06:30] VITALS: BP 164/62
--- NOTE | 2017-05-29 10:42 | PN- Pulmonary ---
Subjective HPI/Critical Care Issues: Patient feels more comfortable note positive influenza. Objective Current Medications: Current Medications Sig/Larissa Start time Last Medication Dose Route Stop Time Status Admin Acetaminophen 650 MG Q6P PRN 05/27 1245 AC 05/28 PO 0910 Acetaminophen 1,000 MG Q6P PRN 05/27 1245 AC IV Albuterol Sulfate 3 ML BID 05/27 2200 AC 05/29 INH 0806 Amlodipine Besylate 5 MG DAILY 05/27 1209 AC 05/29 PO 1015 Aspirin 325 MG ONCE ONE 05/29 0945 DC 05/29 PO 05/29 0946 1017 Aspirin Buffered 81 MG QPM 05/27 2200 AC 05/28 PO 2042 Atorvastatin Calcium 20 MG DAILY 05/27 1216 AC 05/29 PO 1015 Azithromycin 500 MG DAILY 05/28 1000 AC 05/29 Sodium Chloride 250 ML IV 1019 Budesonide/ 2 PUF DAILY 05/27 1213 AC 05/29 Formoterol Fumarate INH 1019 Carvedilol 25 MG BID 05/27 1211 AC 05/29 PO 1015 Ceftriaxone Sodium 1,000 MG DAILY 05/28 1000 AC 05/29 IV 1018 Cholecalciferol 1,000 IU DAILY 05/28 1000 AC 05/29 PO 1016 Duloxetine HCl 60 MG DAILY 05/28 1000 AC 05/29 PO 1015 Ferrous Sulfate 325 MG DAILY 05/28 1000 AC 05/29 PO 1015 Fish Oil 1,050 MG DAILY 05/28 1000 AC 05/29 PO 1017 Guaifenesin 600 MG Q12 05/28 1000 AC 05/29 PO 1015 Guaifenesin/ 10 ML Q6P PRN 05/29 0615 AC 05/29 Dextromethorphan PO 0621 Heparin Sodium 5,000 UNIT Q8 05/27 1400 AC 05/29 (Porcine) SC 0526 Hydralazine HCl 100 MG TID 05/27 1213 AC 05/29 PO 1016 Insulin Aspart 0 TIDAC 05/28 1200 AC 05/29 SC 0816 Insulin Detemir 15 UNITS BID 05/27 1225 AC 05/29 SC 1030 Isosorbide 60 MG DAILY 05/28 1000 AC 05/29 Mononitrate PO 1015 Levothyroxine Sodium 0.125 MG DAILY AC 05/27 1215 AC 05/29 PO 0525 Losartan Potassium 50 MG DAILY 05/28 1000 DC 05/28 PO 0900 Methylprednisolone 40 MG DAILY 05/27 1233 AC 05/29 IV 1019 Morphine Sulfate 4 MG Q4P PRN 05/27 1245 AC IV Oseltamivir Phosphate 30 MG DAILY 05/29 1000 AC 05/29 PO 06/02 0959 1023 Oseltamivir Phosphate 75 MG BID 05/28 1034 DC 05/28 PO 06/01 1033 1134 Senna/Docusate Sodium 2 TAB AT BEDTIME 05/27 2200 AC 05/27 PO 2203 Vital Signs & I&O Last 24 Hrs of Vitals and I&O: Vital Signs Date Time Temp Pulse Resp B/P B/P Pulse O2 O2 Flow FiO2 Mean Ox Delivery Rate 05/29 1016 64 160/80 05/29 1015 64 160/80 05/29 1015 64 160/80 05/29 1015 64 160/80 05/29 0808 94 Nasal 3.0L Cannula 05/29 0808 67 94 05/29 0630 98.2 65 20 164/62 95 05/29 0127 66 97 05/29 0107 160/58 05/29 0000 94 Nasal 3.0L Cannula 05/28 2209 84 97 05/28 2200 98.6 79 20 180/78 94 Nasal 3.0L Cannula 05/28 204 79 180/78 05/28 204 79 180/78 05/28 2015 94 Nasal 3.0L Cannula 05/28 1643 77 170/64 05/28 1639 77 170/64 05/28 1342 98.7 72 18 154/58 95 Nasal 3.0L Cannula Intake & Output 05/29 1600 05/29 0800 05/29 0000 Intake Total 210 625 Output Total 220 225 Balance -10 400 Intake, IV 10 5 Intake, Oral 200 620 Number 0 0 Bowel Movements Output, Urine 220 225 Patient 192 lb Weight Weight Bed scale Measurement Method Oxygen saturation 3 L 94% exam for chest shows occasional crackles there are no wheezes cardiac exam shows regular S1 and S2 without murmurs Impression/Plan Impression/Plan Impression/Plan: 71-year-old with congestive heart failure admitted with suspected pneumonia and found to be flu positive Recommendations: Follow-up cultures. Treatment of influenza to be dressed by primary care team. Follow electrolytes closely with chronic kidney disease and CHF. Repeat PA and lateral chest x-ray today. Taper FiO2 his saturations allow
--- NOTE | 2017-05-29 10:53 | PN- Cardiology ---
Subjective Subjective: * Patient feels short of breath. Although she denies any chest discomfort a mildly elevated cardiac troponin is noted. * sinus rhythm * creatinine has risen to 2.3 Objective Vital Signs and I&Os Vital Signs Date Time Temp Pulse Resp B/P B/P Pulse O2 O2 Flow FiO2 Mean Ox Delivery Rate 05/29 1016 64 160/80 05/29 1015 64 160/80 05/29 1015 64 160/80 05/29 1015 64 160/80 05/29 0808 94 Nasal 3.0L Cannula 05/29 0808 67 94 05/29 0630 98.2 65 20 164/62 95 05/29 0127 66 97 05/29 0107 160/58 05/29 0000 94 Nasal 3.0L Cannula 05/28 2209 84 97 05/28 2200 98.6 79 20 180/78 94 Nasal 3.0L Cannula 05/28 2041 79 180/78 05/28 2041 79 180/78 05/28 2015 94 Nasal 3.0L Cannula 05/28 1643 77 170/64 05/28 1639 77 170/64 05/28 1342 98.7 72 18 154/58 95 Nasal 3.0L Cannula Intake & Output 05/29 1600 05/29 0800 05/29 0000 05/28 1600 05/28 0800 05/28 0000 Intake Total 283 362 2338 205 488 Output Total 220 225 200 200 150 Balance -10 400 1011 5 338 Intake, IV 10 5 271 5 8 Intake, Oral 200 620 940 200 480 Number 0 0 1 3 Bowel Movements Output, Urine 220 225 200 200 150 Patient 192 lb 188 lb Weight Weight Bed scale Bed scale Measurement Method Physical Exam: General: WD/WN female in NAD; alert and oriented x 3 Neck: no JVD Heart: RRR with 2/6 systolic murmur Lungs: decreased air movement and upper airway sounds, no crackles Extremities:no edema Assessment/Plan Assessment/Plan * Check a TSH and free T4. * Hold diuretics for now due to her rising creatinine. * The patient's elevated troponin is in the setting of an acutely increased creatinine and may be related to decreased clearance. Nevertheless, this patient has known coronary artery disease and may have true myocardial ischemia. Finally , the patient's breathing is a bit worse than yesterday despite treatment. A pulmonary embolism cannot be excluded and it should be noted that this is a common cause of borderline increased troponin. Obtain a D-dimer and ABG. Begin IV heparin for both the possibility of PE and for possible ACS. Continue aspirin. Continue her Coreg, Imdur and statin. Follow cardiac enzymes until they peak. * Obtain an echocardiogram. Continue telemetry? Yes
--- NOTE | 2017-05-29 12:02 | PN- Housestaff ---
Georgie Rios 05/29/17 1154: Subjective Follow-up For: Possible multilobar pneumonia Influenza B Positive troponins Acute on chronic kidney disease Subjective: This morning patient is complaining of being more short of breath. She is on 3.5 L of oxygen via nasal cannula right now. She denies any chest pain or discomfort, palpitations, dizziness or lightheadedness, nausea. She is also complaining of puffiness of her both arms. She used CPAP last night. Review of Systems Constitutional: Reports: see HPI. Objective Last 24 Hrs of Vital Signs/I&O Vital Signs Date Time Temp Pulse Resp B/P B/P Pulse O2 O2 Flow FiO2 Mean Ox Delivery Rate 05/29 1016 64 160/80 05/29 1015 64 160/80 05/29 1015 64 160/80 05/29 1015 64 160/80 05/29 0808 94 Nasal 3.0L Cannula 05/29 0808 67 94 05/29 0630 98.2 65 20 164/62 95 05/29 0127 66 97 05/29 0107 160/58 05/29 0000 94 Nasal 3.0L Cannula 05/289 84 97 05/28 2200 98.6 79 20 180/78 94 Nasal 3.0L Cannula 05/28 204 79 180/78 05/28 204 79 180/78 05/28 2015 94 Nasal 3.0L Cannula 05/28 1643 77 170/64 05/28 1639 77 170/64 05/28 1342 98.7 72 18 154/58 95 Nasal 3.0L Cannula Intake & Output 05/29 1600 05/29 0800 05/29 0000 Intake Total 210 625 Output Total 220 225 Balance -10 400 Intake, IV 10 5 Intake, Oral 200 620 Number 0 0 Bowel Movements Output, Urine 220 225 Patient 192 lb Weight Weight Bed scale Measurement Method Physical Exam General Appearance: Alert, Oriented X3, Cooperative, Mild Distress Skin: No Rashes Skin Temp/Moisture Exam: Warm/Dry Neck: Supple, No JVD Cardiovascular: Regular Rate, systolic murmur Lungs: coarse ronchi and wheezes B/L Abdomen: Normal Bowel Sounds, Soft, No Tenderness Neurological: Normal Speech, Sensation Intact, Cranial Nerves 3-12 NL Extremities: No Edema, puffiness of both hands and arms, no tenderness or erythema Current Medications: Current Medications Sig/Larissa Start time Last Medication Dose Route Stop Time Status Admin Acetaminophen 650 MG Q6P PRN 05/27 1245 AC 05/28 PO 0910 Acetaminophen 1,000 MG Q6P PRN 05/27 1245 AC IV Albuterol Sulfate 3 ML BID 05/27 2200 AC 05/29 INH 1151 Amlodipine Besylate 5 MG DAILY 05/27 1209 AC 05/29 PO 1015 Aspirin 325 MG ONCE ONE 05/29 0945 DC 05/29 PO 05/29 0946 1017 Aspirin Buffered 81 MG QPM 05/27 2200 AC 05/28 PO 2042 Atorvastatin Calcium 20 MG DAILY 05/27 1216 AC 05/29 PO 1015 Azithromycin 500 MG DAILY 05/28 1000 AC 05/29 Sodium Chloride 250 ML IV 1019 Budesonide/ 2 PUF DAILY 05/27 1213 AC 05/29 Formoterol Fumarate INH 1019 Carvedilol 25 MG BID 05/27 1211 AC 05/29 PO 1015 Ceftriaxone Sodium 1,000 MG DAILY 05/28 1000 AC 05/29 IV 1018 Cholecalciferol 1,000 IU DAILY 05/28 1000 AC 05/29 PO 1016 Duloxetine HCl 60 MG DAILY 05/28 1000 AC 05/29 PO 1015 Ferrous Sulfate 325 MG DAILY 05/28 1000 AC 05/29 PO 1015 Fish Oil 1,050 MG DAILY 05/28 1000 AC 05/29 PO 1017 Guaifenesin 600 MG Q12 05/28 1000 AC 05/29 PO 1015 Guaifenesin/ 10 ML Q6P PRN 05/29 0615 AC 05/29 Dextromethorphan PO 0621 Heparin Sodium 25,000 UNIT Q24H 05/29 1130 AC (Porcine) IV Sodium Chloride 500 ML Heparin Sodium 5,000 UNIT Q8 05/27 1400 DC 05/29 (Porcine) SC 0526 Hydralazine HCl 100 MG TID 05/27 1213 AC 05/29 PO 1016 Insulin Aspart 0 TIDAC 05/28 1200 AC 05/29 SC 0816 Insulin Detemir 15 UNITS BID 05/27 1225 AC 05/29 SC 1030 Isosorbide 60 MG DAILY 05/28 1000 AC 05/29 Mononitrate PO 1015 Levothyroxine Sodium 0.125 MG DAILY AC 05/27 1215 AC 05/29 PO 0525 Methylprednisolone 40 MG DAILY 05/27 1233 AC 05/29 IV 1019 Morphine Sulfate 4 MG Q4P PRN 05/27 1245 AC IV Oseltamivir Phosphate 30 MG DAILY 05/29 1000 AC 05/29 PO 06/02 0959 1023 Oseltamivir Phosphate 75 MG BID 05/28 1034 DC 05/28 PO 06/01 1033 1134 Senna/Docusate Sodium 2 TAB AT BEDTIME 05/27 2200 AC 05/27 PO 2203 Last 24 Hrs of Lab/Jose Alejandro Results Last 24 Hrs of Labs/Mics: Laboratory Tests 05/29/17 0617: Troponin I 0.13 *H Assessment/Plan Assessment: The patient is a 71 year old female with an extensive past history including significant obstructive sleep apnea on nocturnal CPAP, HTN, HLD, Insulin dependent DM, chronic renal insufficiency, CHF, anemia, COPD, spinal stenosis s/ p spinal stimulator with chronic pain. Active Problem list 1. Acute on chronic hypoxic respiratory failure secondary to Possible multilobar pneumonia and flu B. on 3.5L of O2 (baseline 2L) 2. Acute on chronic kidney disease stage III, Cr 2.3 yesterday (baseline hig 1' s) 3. Positive troponins, 0.13 4. Hypertension Plan - Monitor vitals every shift - Continue TRC nebs as needed - Try to taper down oxygen as tolerated - Continue ceftriaxone and azithromycin - Follow-up PA and lateral chest x-ray that was done this morning for any change - Continue IV steroids - We will try to get sputum cultures - Continue Tamiflu x 5 days - Cardio consult appreciated - Positive troponins seems likely due to type II HI but to rule out type I HI and PE we will check serial troponins and EKGs, d-dimer and ABGs - will start patient on heparin drip. Stool guaiac negative - Echocardiogram ordered - We will continue aspirin, Imdur, Coreg, statin - Continue hydralazine and amlodipine. Monitor blood pressure closely.if blood pressure is persistently high can increase the dose of amlodipine - Nephro consult appreciated. We'll continue holding diuretics for now - Monitor kidney functions daily - Continue other medications - DVT prophylaxis - Full codeFull code Problem List: 1. Respiratory failure Pain Ratin Pain Location: none Pain Goal: Pain 4 or less Pain Plan: tylenol Tomorrow's Labs & Rationales: BEP DVT/Prophylaxis: pharmacological Lima Bullock 05/29/17 1224: Attending MD Review Statement Attending Statement Attending MD Statement: examined this patient, discuss w/resident/PA/GOLF BALL WINDER, agreed w/resident/PA/GOLF BALL WINDER, discussed with family, reviewed EMR data (avail), discussed with nursing, discussed with case mgmt, reviewed images, amended to note Attending Assessment/Plan: Patient seen/examined bedside. Patient said she feels short of breath , found to have elevated cardiac enzymes , is on oxygen supplementation 3-4 l. Cardiology recommend starting heparin drip for NSTEMI possible ACS r/o PE. Patient does have acute kidney injury with elevation in creatinine. Patient LA wnl on admission. Patient lower extremity USG negative for DVT. Patient is on tamiflu with mutlifocal pneumonia on chest xray. cont current care gi/dvt prophylaixs plan of care discussed with patient/family bedside.
[2017-05-29 13:25] LABS: ABSOLUTE BASOPHIL COUNT 0 /CUMM (0.0-0.2); ABSOLUTE EOSINOPHIL COUNT 0 /CUMM (0.0-0.7); ABSOLUTE LYMPH COUNT 0.7 /CUMM (1.2-3.4); ABSOLUTE MONOCYTE COUNT 0.7 /CUMM (0.10-0.60); BASOPHIL % 0 % (0.0-2.0); EOSINOPHIL % 0 % (0-5); MEAN PLATELET VOLUME 8.9 FL (7.4-10.4)
[2017-05-29 13:30] LABS: ABSOLUTE GRANULOCYTE CT 10.9 /CUMM (1.4-6.5); HEMATOCRIT 26.4 % (37-47); MEAN CORPUSCULAR HGB 29.3 PG (27.0-31.0); MEAN CORPUSCULAR HGB CONC 33.2 G/DL (33.0-37.0); MEAN CORPUSCULAR VOLUME 88.4 FL (81.0-99.0); PLATELET COUNT 183 /CUMM (130-400); RBC DISTRIBUTION WIDTH 16.7 % (11.5-14.5); RED BLOOD CELL CT 2.99 /CUMM (4.20-5.40)
[2017-05-29 14:01] LABS: WHITE BLOOD CELL COUNT 12.3 /CUMM (4.8-10.8)
[2017-05-29 14:02] LABS: GRANULOCYTE % 88.8 % (42.2-75.2)
[2017-05-29 14:37] VITALS: BP 162/84
--- NOTE | 2017-05-29 16:04 | RADIOLOGY REPORT ---
EXAMINATION: XR CHEST CLINICAL INFORMATION: Shortness of breath COMPARISON: CT chest 05/27/2017. Portable chest 05/27/2014, 04/19/2017 TECHNIQUE: 2 views of the chest were obtained. FINDINGS: Persistent diffuse patchy airspace disease in the lungs bilateral. The severity however has mildly improved since 05/27/2017. There is mild improvement of the aeration of both lungs. Dense this area of opacity remains at the left lung base and retrocardiac area. Neural stimulator probe over the mid thoracic spine. Deformity the superior lateral humeral head is chronic deformity due to old trauma. IMPRESSION: Persistent diffuse patchy bilateral airspace disease. Severity has mildly improved since prior exam 05/27/2017.
[2017-05-29 19:36] LABS: PTT 58 SEC (25-37)
[2017-05-29 22:36] VITALS: BP 184/70
[2017-05-30 04:57] LABS: ABSOLUTE BASOPHIL COUNT 0 /CUMM (0.0-0.2); ABSOLUTE EOSINOPHIL COUNT 0 /CUMM (0.0-0.7); ABSOLUTE GRANULOCYTE CT 9.7 /CUMM (1.4-6.5); ABSOLUTE LYMPH COUNT 0.6 /CUMM (1.2-3.4); ABSOLUTE MONOCYTE COUNT 0.4 /CUMM (0.10-0.60); BASOPHIL % 0 % (0.0-2.0); EOSINOPHIL % 0 % (0-5); GRANULOCYTE % 90.9 % (42.2-75.2); HEMATOCRIT 26.7 % (37-47); MEAN CORPUSCULAR HGB 29.2 PG (27.0-31.0); MEAN CORPUSCULAR HGB CONC 33.2 G/DL (33.0-37.0); MEAN CORPUSCULAR VOLUME 87.9 FL (81.0-99.0); MEAN PLATELET VOLUME 8.8 FL (7.4-10.4); PLATELET COUNT 192 /CUMM (130-400); RBC DISTRIBUTION WIDTH 16.5 % (11.5-14.5); RED BLOOD CELL CT 3.04 /CUMM (4.20-5.40)
[2017-05-30 05:04] LABS: PTT 82 SEC (25-37)
[2017-05-30 05:46] LABS: WHITE BLOOD CELL COUNT 10.7 /CUMM (4.8-10.8)
[2017-05-30 06:59] VITALS: BP 150/80
--- NOTE | 2017-05-30 09:33 | PN- Pulmonary ---
Subjective HPI/Critical Care Issues: Patient continues to complain of shortness breath remains oxygen dependent Objective Current Medications: Current Medications Sig/Larissa Start time Last Medication Dose Route Stop Time Status Admin Acetaminophen 650 MG Q6P PRN 05/27 1245 AC 05/28 PO 0910 Acetaminophen 1,000 MG Q6P PRN 05/27 1245 AC IV Albuterol Sulfate 3 ML BID 05/27 2200 AC 05/29 INH 1839 Amlodipine Besylate 5 MG DAILY 05/27 1209 AC 05/29 PO 1015 Aspirin 325 MG ONCE ONE 05/29 0945 DC 05/29 PO 05/29 0946 1017 Aspirin Buffered 81 MG QPM 05/27 2200 AC 05/29 PO 2148 Atorvastatin Calcium 20 MG DAILY 05/27 1216 AC 05/29 PO 1015 Azithromycin 500 MG DAILY 05/28 1000 AC 05/29 Sodium Chloride 250 ML IV 1019 Budesonide/ 2 PUF DAILY 05/27 1213 AC 05/29 Formoterol Fumarate INH 1019 Carvedilol 25 MG BID 05/27 1211 AC 05/29 PO 2148 Ceftriaxone Sodium 1,000 MG DAILY 05/28 1000 AC 05/29 IV 1018 Cholecalciferol 1,000 IU DAILY 05/28 1000 AC 05/29 PO 1016 Duloxetine HCl 60 MG DAILY 05/28 1000 AC 05/29 PO 1015 Ferrous Sulfate 325 MG DAILY 05/28 1000 AC 05/29 PO 1015 Fish Oil 1,050 MG DAILY 05/28 1000 AC 05/29 PO 1017 Guaifenesin 600 MG Q12 05/28 1000 AC 05/29 PO 2148 Guaifenesin/ 10 ML Q6P PRN 05/29 0615 AC 05/29 Dextromethorphan PO 2149 Heparin Sodium 2,615 UNIT BOLUS ONE 05/29 2020 DC (Porcine) IV 05/29 202 Heparin Sodium 25,000 UNIT Q24H 05/29 1130 AC 05/29 (Porcine) IV 1208 Sodium Chloride 500 ML Heparin Sodium 5,000 UNIT Q8 05/27 1400 DC 05/29 (Porcine) SC 0526 Hydralazine HCl 100 MG TID 05/27 1213 AC 05/29 PO 2148 Insulin Aspart 0 TIDAC 05/28 1200 AC 05/29 SC 1705 Insulin Detemir 15 UNITS BID 05/27 1225 AC 05/29 SC 2151 Isosorbide 60 MG DAILY 05/28 1000 AC 05/29 Mononitrate PO 1015 Levothyroxine Sodium 0.125 MG DAILY AC 05/27 1215 AC 05/30 PO 0511 Methylprednisolone 40 MG DAILY 05/27 1233 AC 05/29 IV 1019 Morphine Sulfate 4 MG Q4P PRN 05/27 1245 IV Oseltamivir Phosphate 30 MG DAILY 05/29 1000 AC 05/29 PO 06/02 0959 1023 Senna/Docusate Sodium 2 TAB AT BEDTIME 05/27 2200 AC 05/29 PO 2148 Vital Signs & I&O Last 24 Hrs of Vitals and I&O: Vital Signs Date Time Temp Pulse Resp B/P B/P Pulse O2 O2 Flow FiO2 Mean Ox Delivery Rate 05/30 0659 98.1 62 26 150/80 98 05/30 0000 BIPAP 05/296 98.8 68 18 184/70 95 05/29 2148 68 184/70 05/29 2148 68 184/70 05/29 1840 96 Nasal 3.0L Cannula 05/29 1758 Nasal 3.0L Cannula 05/29 1704 62 162/84 05/29 1437 98.2 62 24 162/84 96 Nasal Cannula 05/29 1016 64 160/80 05/29 1015 64 160/80 05/29 1015 64 160/80 05/29 1015 64 160/80 Intake & Output 05/30 1600 05/30 0800 05/30 0000 Intake Total 288.8 480 Output Total 600 250 Balance -311.2 230 Intake, IV 188.8 80 Intake, Oral 100 400 Number 0 Bowel Movements Output, Urine 600 250 Patient 192 lb Weight Weight Bed scale Measurement Method Since saturation 3 L 95% exam for chest shows diminished breath sounds occasional crackles but no wheezes cardiac exam shows regular S1 and S2 without murmurs Impression/Plan Impression/Plan Impression/Plan: 71-year-old with congestive heart failure admitted with suspected pneumonia and found to be flu positive Recommendations: Follow-up cultures. Treatment of influenza to be dressed by primary care team. Follow electrolytes closely with chronic kidney disease and CHF. Chest x-ray is somewhat improved. Continue current care regimen Taper FiO2 his saturations allow
--- NOTE | 2017-05-30 10:27 | PN- Cardiology ---
Subjective Subjective: * Breathing is about the same. No chest discomfort. * sinus rhythm * creatinine improved to 2.4 * D-dimer is only mildly elevated and her ABG is not hightly suggestive of a PE * troponin has normalized. Objective Vital Signs and I&Os Vital Signs Date Time Temp Pulse Resp B/P B/P Pulse O2 O2 Flow FiO2 Mean Ox Delivery Rate 05/30 1000 94 Nasal 3.0L Cannula 05/30 0933 74 150/80 05/30 0933 74 150/80 05/30 0933 74 150/80 05/30 0933 74 150/80 05/30 0659 98.1 62 26 150/80 98 05/30 0000 BIPAP 05/29 2236 98.8 68 18 184/70 95 05/29 2148 68 184/70 05/29 2148 68 184/70 05/29 1840 96 Nasal 3.0L Cannula 05/29 1758 Nasal 3.0L Cannula 05/29 1704 62 162/84 05/29 1437 98.2 62 24 16284 96 Nasal Cannula Intake & Output 05/30 1600 05/30 0800 05/30 0000 05/29 1600 05/29 0800 05/29 0000 Intake Total 288.8 480 970 210 625 Output Total 600 250 250 220 225 Balance -311.2 230 720 -10 400 Intake, IV 188.8 80 350 10 5 Intake, Oral 100 400 620 200 620 Number 0 0 0 Bowel Movements Output, Urine 600 250 250 220 225 Patient 192 lb 192 lb Weight Weight Bed scale Bed scale Measurement Method Physical Exam: General: WD/WN female in NAD; alert and oriented x 3 Neck: no JVD Heart: RRR with 2/6 systolic murmur Lungs: decreased air movement and upper airway sounds, some wheezing noted on the left, no crackles Extremities:no edema Assessment/Plan Assessment/Plan * Increased TSH with normal free T4. * Creatinine is improving with holding of her diuretic. * The patient's elevated troponin is in the setting of an acutely increased creatinine and may be related to decreased clearance. Nevertheless, this patient has known coronary artery disease and may have true myocardial ischemia. The patient's D-dimer and ABG are borderline abnormal and not definitive for a PE although these values are being checked a few days out from the beginning of her illnes and may now be normalizing. A pulmonary embolism cannot be excluded and it should be noted that this is a common cause of borderline increased troponin. Continue IV heparin for both the possibility of PE and for possible ACS. Continue aspirin. Continue her Coreg, Imdur and statin. * Obtain an echocardiogram. Continue telemetry? Yes
--- NOTE | 2017-05-30 11:00 | RADIOLOGY REPORT ---
EXAMINATION: XR PORTABLE CHEST CLINICAL INFORMATION: Follow-up pneumonia COMPARISON: May 29, 2017 and studies dating back to April 13, 2017 TECHNIQUE: Portable frontal view of the chest was obtained. FINDINGS: There is again noted to be diffuse interstitial and airspace disease without significant change with indistinctness of the hilar regions and more confluent disease in the retrocardiac region. Hazy density left base is seen consistent with layering pleural effusion. The cardiopericardial silhouette appears to be mildly enlarged. No pneumothorax is seen. Nerve stimulator seen. IMPRESSION: Diffuse interstitial and airspace disease similar to previous day's study consistent with pulmonary edema of cardiogenic or noncardiogenic etiology. Region of more confluent disease left base with what appears to be left pleural effusion.
--- NOTE | 2017-05-30 13:56 | PN- Att Addend ---
Attending Addendum Attending Brief Note Patient seen/examined bedside. labs and vitals reviewed. Patient said she feels short of breath but better than yesterday, found to have elevated cardiac enzymes , is on oxygen supplementation 3l. D dimer elevated and ABG noted. Cardiology recommend starting heparin drip for NSTEMI possible ACS r/o PE. Patient does have acute kidney injury with elevation in creatinine. Patient LA wnl on admission. Patient lower extremity USG negative for DVT. Patient is on tamiflu with mutlifocal pneumonia on chest xray. cont current care gi/dvt prophylaixs plan of care discussed with patient/family bedside.
[2017-05-30 14:25] VITALS: BP 182/80
[2017-05-30 18:55] LABS: PTT 87 SEC (25-37)
[2017-05-30 22:14] VITALS: BP 190/82
[2017-05-31] VITALS (8 sets, daily range): BP systolic 140–200; BP diastolic 62–92
[2017-05-31 05:02] LABS: HEMATOCRIT 27.2 % (37-47); MEAN CORPUSCULAR HGB 29.2 PG (27.0-31.0); MEAN CORPUSCULAR HGB CONC 33.3 G/DL (33.0-37.0); MEAN CORPUSCULAR VOLUME 87.9 FL (81.0-99.0); MEAN PLATELET VOLUME 9.1 FL (7.4-10.4); PLATELET COUNT 190 /CUMM (130-400); RBC DISTRIBUTION WIDTH 16.5 % (11.5-14.5); WHITE BLOOD CELL COUNT 9.4 /CUMM (4.8-10.8)
[2017-05-31 05:06] LABS: PTT 88 SEC (25-37)
--- NOTE | 2017-05-31 08:44 | PN- Housestaff ---
Tobias GUTIERREZ,Kelsey 05/31/17 0843: Subjective Follow-up For: Influenza B. Acute on chronic kidney disease. Multilobar pneumonia. Complaints: no complaints Tele-Events Since Last Visit: Normal sinus rhythm, first-degree heart block, VT interval 0.12, heart rate 60 Subjective: Patient is seen and examined at the bedside. She denies for any active complaints. Review of Systems Constitutional: Denies: no symptoms. Objective Last 24 Hrs of Vital Signs/I&O Vital Signs Date Time Temp Pulse Resp B/P B/P Pulse O2 O2 Flow FiO2 Mean Ox Delivery Rate 05/31 1659 65 198/70 05/31 1657 65 198/70 05/31 1600 99 BIPAP 40% 05/31 1600 62 99 05/31 1503 96.6 63 18 180/80 98 05/31 1427 66 98 05/31 1100 64 188/78 05/31 1009 64 188/78 05/31 0851 65 204/70 05/31 0851 65 204/70 05/31 0850 65 204/70 05/31 0850 65 204/70 05/31 0834 93 Nasal 4.0L Cannula 05/31 0800 93 Nasal 4.0L Cannula 05/31 0656 98.3 60 22 142/62 99 BIPAP 05/31 0229 168/92 05/31 0130 60 96 05/31 0108 64 180/70 05/31 0024 64 180/70 05/31 0000 BIPAP 05/30 2302 65 96 05/30 2214 98.8 66 22 190/82 98 BIPAP 05/30 2121 70 200/90 05/30 2018 73 96 05/30 1815 94 Nasal 3.0L Cannula 05/30 1810 90 97 Intake & Output 05/31 1600 05/31 0800 05/31 0000 Intake Total 788.8 288.8 200 Output Total 250 425 400 Balance 538.8 -136.2 -200 Intake, IV 188.8 188.8 Intake, Oral 600 100 200 Output, Urine 250 425 400 Physical Exam General Appearance: Alert, Oriented X3, Cooperative, No Acute Distress Cardiovascular: Normal S1, Normal S2 Lungs: occasional wheezing Abdomen: Soft, No Tenderness Extremities: No Clubbing, No Cyanosis, No Edema Assessment/Plan Assessment: The patient is a 71 year old female with an extensive past history including significant obstructive sleep apnea on nocturnal CPAP, HTN, HLD, Insulin dependent DM, chronic renal insufficiency, CHF, anemia, COPD, spinal stenosis s/ p spinal stimulator with chronic pain. Active Problem list 1. Acute on chronic hypoxic respiratory failure secondary to Possible multilobar pneumonia and flu B. on 3.5L of O2 (baseline 2L) 2. Acute on chronic kidney disease stage III, Cr 2.3 yesterday (baseline hig 1' s) 3. Positive troponins, 0.13 4. Hypertension Plan - Continue ceftriaxone and azithromycin for 1 more day and we plan to switch to by mouth tomorrow -Today chest x-ray showed evidence of cor pulmonale/pulmonary edema with slight increase mild to moderate left and mild right-sided pleural effusion. - Continue IV steroids - Advised screening for MRSA - follow sputum and nasopharyngeal culture - Continue Tamiflu x 5 days (06/02/2017) - Cardio consult appreciated - Continue heparin drip, please discuss the dose of eliquis and can start from tommorow. - Follow Echocardiogram - We will continue aspirin, Imdur, Coreg, statin - Continue hydralazine and amlodipine.We increased the dose of amlodipine to 10mg /day. - Nephro consult appreciated. We'll continue holding diuretics for now - Monitor kidney functions daily - Continue other medications - Low threshold for ICU. - Monitor vitals every shift - Continue TRC nebs as needed - Try to taper down oxygen as tolerated - DVT prophylaxis - Heparin - Code status - Full code Problem List: 1. Respiratory failure 2. Hypertensive urgency 3. Renal insufficiency 4. Pulmonary infiltrates Pain Ratin Pain Location: n/a Pain Goal: Remain pain free Pain Plan: avoid NSAIds Tomorrow's Labs & Rationales: f/u CBC, BEP, CXR DVT/Prophylaxis: mechanical, pharmacological Lima Bullock 05/31/17 1340: Attending MD Review Statement Attending Statement Attending MD Statement: examined this patient, discuss w/resident/PA/CORNER BEAD OPERATOR, agreed w/resident/PA/CORNER BEAD OPERATOR, discussed with family, reviewed EMR data (avail), discussed with nursing, discussed with case mgmt, reviewed images, amended to note Attending Assessment/Plan: Patient seen/examined bedside. labs and vitals reviewed. Patient said she feels short of breath but better than yesterday, found to have elevated cardiac enzymes , is on oxygen supplementation 3l. D dimer elevated and ABG noted. Cardiology recommend continue heparin drip for NSTEMI possible ACS r/o PE. Patient does have acute kidney injury with elevation in creatinine with stabilsing function. Patient LA wnl on admission. Patient lower extremity USG negative for DVT. Patient is on tamiflu with mutlifocal pneumonia on chest xray. Repeat chest xray shows pulmonary edema with mild improvement. Overall clinical course with slow progression. cont current care gi/dvt prophylaixs plan of care discussed with patient/family bedside.
--- NOTE | 2017-05-31 09:48 | PN- Pulmonary ---
Subjective HPI/Critical Care Issues: She continues to complain of shortness of breath and remain oxygen dependent Objective Current Medications: Current Medications Sig/Larissa Start time Last Medication Dose Route Stop Time Status Admin Acetaminophen 650 MG Q6P PRN 05/27 1245 AC 05/28 PO 0910 Acetaminophen 1,000 MG Q6P PRN 05/27 1245 AC IV Albuterol Sulfate 3 ML BID 05/27 2200 AC 05/31 INH 0837 Amlodipine Besylate 10 MG DAILY 05/31 1000 AC PO Amlodipine Besylate 5 MG ONCE ONE 05/31 0100 DC 05/31 PO 05/31 0101 0108 Amlodipine Besylate 5 MG DAILY 05/27 1209 DC 05/31 PO 0850 Aspirin Buffered 81 MG QPM 05/27 2200 AC 05/30 PO 2117 Atorvastatin Calcium 20 MG DAILY 05/27 1216 AC 05/31 PO 0848 Azithromycin 500 MG DAILY 05/28 1000 AC 05/31 Sodium Chloride 250 ML IV 0857 Budesonide/ 2 PUF DAILY 05/27 1213 AC 05/31 Formoterol Fumarate INH 0858 Carvedilol 25 MG BID 05/27 1211 AC 05/31 PO 0850 Ceftriaxone Sodium 1,000 MG DAILY 05/28 1000 AC 05/31 IV 0845 Cholecalciferol 1,000 IU DAILY 05/28 1000 AC 05/31 PO 0848 Duloxetine HCl 60 MG DAILY 05/28 1000 AC 05/31 PO 0848 Ferrous Sulfate 325 MG DAILY 05/28 1000 AC 05/31 PO 0848 Fish Oil 1,050 MG DAILY 05/28 1000 AC 05/31 PO 0846 Guaifenesin 600 MG Q12 05/28 1000 AC 05/31 PO 0848 Guaifenesin/ 10 ML Q6P PRN 05/29 0615 AC 05/29 Dextromethorphan PO 2149 Heparin Sodium 25,000 UNIT Q24H 05/29 1130 AC 05/31 (Porcine) IV 0847 Sodium Chloride 500 ML Hydralazine HCl 100 MG TID 05/27 1213 AC 05/31 PO 0851 Insulin Aspart 0 TIDAC 05/28 1200 AC 05/31 SC 0846 Insulin Detemir 15 UNITS BID 05/27 1225 AC 05/31 SC 0846 Isosorbide 60 MG DAILY 05/28 1000 AC 05/31 Mononitrate PO 0851 Levothyroxine Sodium 0.125 MG DAILY AC 05/27 1215 AC 05/31 PO 0610 Methylprednisolone 40 MG DAILY 05/27 1233 AC 05/31 IV 0845 Morphine Sulfate 4 MG Q4P PRN 05/27 1245 IV Oseltamivir Phosphate 30 MG DAILY 05/29 1000 AC 05/31 PO 06/02 0959 0847 Senna/Docusate Sodium 2 TAB AT BEDTIME 05/27 2200 AC 05/30 PO 2117 Vital Signs & I&O Last 24 Hrs of Vitals and I&O: Vital Signs Date Time Temp Pulse Resp B/P B/P Pulse O2 O2 Flow FiO2 Mean Ox Delivery Rate 05/31 0851 65 204/70 05/31 0851 65 204/70 05/31 0850 65 204/70 05/31 0850 65 204/70 05/31 0834 93 Nasal 4.0L Cannula 05/31 0656 98.3 60 22 142/62 99 BIPAP 05/31 0229 168/92 05/31 0130 60 96 05/31 0108 64 180/70 05/31 0024 64 180/70 05/31 0000 BIPAP 05/30 2302 65 96 05/30 2214 98.8 66 22 190/82 98 BIPAP 05/30 2121 70 200/90 05/30 2018 73 96 05/30 1815 94 Nasal 3.0L Cannula 05/30 1810 90 97 05/30 1717 63 182/80 05/30 1600 Nasal 3.0L Cannula 05/30 1425 97.6 63 24 182/80 96 Nasal 3.0L Cannula 05/30 1000 94 Nasal 3.0L Cannula Intake & Output 05/31 1600 05/31 0800 05/31 0000 Intake Total 288.8 200 Output Total 425 400 Balance -136.2 -200 Intake, IV 188.8 Intake, Oral 100 200 Output, Urine 425 400 Since saturation 4 L 93% exam for chest shows decreased breath sounds there are occasional crackles present there are no wheezes cardiac exam shows normal S1 and S2 without murmurs Impression/Plan Impression/Plan Impression/Plan: 71-year-old with congestive heart failure admitted with suspected pneumonia and found to be flu positive Recommendations: Follow-up cultures. Treatment of influenza to be dressed by primary care team. Follow electrolytes closely with chronic kidney disease and CHF. Chest x-ray is somewhat improved. Continue current care regimen Taper FiO2 his saturations allow. No further pulmonary suggestions
--- NOTE | 2017-05-31 09:56 | PN- Cardiology ---
Subjective Subjective: * Breathing is about the same. No chest discomfort. * sinus rhythm * creatinine improved to 2.2 * D-dimer is only mildly elevated and her ABG is not highly suggestive of a PE * troponin has normalized. Objective Vital Signs and I&Os Vital Signs Date Time Temp Pulse Resp B/P B/P Pulse O2 O2 Flow FiO2 Mean Ox Delivery Rate 05/31 0851 65 204/70 05/31 0851 65 204/70 05/31 0850 65 204/70 05/31 0850 65 204/70 05/31 0834 93 Nasal 4.0L Cannula 05/31 0656 98.3 60 22 142/62 99 BIPAP 05/31 0229 168/92 05/31 0130 60 96 05/31 0108 64 180/70 05/31 0024 64 180/70 05/31 0000 BIPAP 05/30 2302 65 96 05/30 2214 98.8 66 22 190/82 98 BIPAP 05/30 2121 70 200/90 05/30 2018 73 96 05/30 1815 94 Nasal 3.0L Cannula 05/30 1810 90 97 05/30 1717 63 182/80 05/30 1600 Nasal 3.0L Cannula 05/30 1425 97.6 63 24 182/80 96 Nasal 3.0L Cannula 05/30 1000 94 Nasal 3.0L Cannula Intake & Output 05/31 1600 05/31 0800 05/31 0000 05/30 1600 05/30 0800 05/30 0000 Intake Total 288.8 200 1050 288.8 480 Output Total 425 400 350 600 250 Balance -136.2 -200 700 -311.2 230 Intake, IV 188.8 450 188.8 80 Intake, Oral 100 200 600 100 400 Number 0 Bowel Movements Output, Urine 425 400 350 600 250 Patient 192 lb Weight Weight Bed scale Measurement Method Physical Exam: General: WD/WN female in NAD; alert and oriented x 3 Neck: no JVD Heart: RRR with 2/6 systolic murmur Lungs: decreased air movement and upper airway sounds, some wheezing noted on the left, no crackles Extremities:no edema Assessment/Plan Assessment/Plan * Increased TSH with normal free T4. * Creatinine is improving with holding of her diuretic. We will reassess Lasix tomorrow. * The patient's elevated troponin is in the setting of an acutely increased creatinine and may be related to decreased clearance. Nevertheless, this patient has known coronary artery disease and may have true myocardial ischemia. The patient's D-dimer and ABG are borderline abnormal and not definitive for a PE although these values are being checked a few days out from the beginning of her illnes and may now be normalizing. A pulmonary embolism cannot be excluded and it should be noted that this is a common cause of borderline increased troponin. Continue IV heparin for both the possibility of PE and for possible ACS. Continue aspirin. Continue her Coreg, Imdur and statin. * Obtain an echocardiogram. Continue telemetry? Yes
--- NOTE | 2017-05-31 15:59 | RADIOLOGY REPORT ---
EXAMINATION: XR PORTABLE CHEST CLINICAL INFORMATION: Shortness of breath and concern for pneumonia. COMPARISON: Chest radiograph 05/30/2017. TECHNIQUE: Portable frontal view of the chest was obtained. FINDINGS: There is cardiomegaly with diffuse bilateral airspace opacities and prominence of the pulmonary vasculature. There are likely superimposed pleural effusions bilaterally, mild to moderate on the left and mild on the right which appear similar to slightly progressed from prior examination. Overall, the bilateral airspace opacities appear to have progressed from prior examination. Nerve stimulator is again seen projecting over the spine. No acute osseous findings. IMPRESSION: Progressive worsening of bilateral airspace opacities with cardiomegaly and pulmonary edema. There also appear to be similar to slightly increased mild to moderate left and mild right pleural effusions. These constellation of findings are nonspecific but most likely represent volume overload and/or superimposed multifocal pneumonia.
[2017-05-31 18:15] LABS: PTT 69 SEC (25-37)
[2017-06-01 06:25] LABS: ABSOLUTE BASOPHIL COUNT 0 /CUMM (0.0-0.2); ABSOLUTE EOSINOPHIL COUNT 0 /CUMM (0.0-0.7); ABSOLUTE GRANULOCYTE CT 7.5 /CUMM (1.4-6.5); ABSOLUTE LYMPH COUNT 0.7 /CUMM (1.2-3.4); ABSOLUTE MONOCYTE COUNT 0.8 /CUMM (0.10-0.60); BASOPHIL % 0 % (0.0-2.0); EOSINOPHIL % 0 % (0-5); HEMATOCRIT 27.1 % (37-47); MEAN CORPUSCULAR HGB 28.8 PG (27.0-31.0); MEAN CORPUSCULAR VOLUME 87.3 FL (81.0-99.0); MEAN PLATELET VOLUME 9.1 FL (7.4-10.4); PLATELET COUNT 198 /CUMM (130-400); RED BLOOD CELL CT 3.11 /CUMM (4.20-5.40); WHITE BLOOD CELL COUNT 9.1 /CUMM (4.8-10.8)
[2017-06-01 06:33] LABS: PTT 84 SEC (25-37)
[2017-06-01 06:52] VITALS: BP 154/72
--- NOTE | 2017-06-01 07:21 | PN- Housestaff ---
Wanda Solano 06/01/17 0718: Subjective Follow-up For: Acute on chronic hypoxic respiratory failure Fluid over Influenza B CKD III B HFpEF Complaints: productive cough Shortness of breath, particualry exertional Tele-Events Since Last Visit: None Subjective: patient was visited and examined today. After our conversation last night/ reviewing VS and images and labs and discussing with my attending Dr. Carpio, patient revceived one dose of lasix. This morning she reports improvement of her breathing, much less labored, patient weaned off BiPaP. Speakes in full sentences and does not seem to be in severe respitratory distress. VSS. Fluid B: - 1400 ml FS: persistently runs high; above 250 mg/dl on average Ferguson + Review of Systems Constitutional: Reports: see HPI. EENTM: Reports: see HPI. Cardiovascular: Reports: see HPI. Respiratory: Reports: cough, short of breath, sputum production, wheezing. Gastrointestinal: Reports: no symptoms. Genitourinary: Reports: no symptoms. Musculoskeletal: Reports: back pain. Skin: Reports: see HPI. Objective Last 24 Hrs of Vital Signs/I&O Vital Signs Date Time Temp Pulse Resp B/P B/P Pulse O2 O2 Flow FiO2 Mean Ox Delivery Rate 06/01 0751 67 97 06/01 0652 97.6 61 20 154/72 96 BIPAP 06/01 0623 64 94 06/01 0622 932 Nasal 4.0L Cannula 06/01 0348 61 97 06/01 0049 65 96 06/01 0000 95 BIPAP 05/31 2233 97.4 63 20 140/80 95 05/31 2208 96 66 05/31 1930 70 95 05/31 1817 70 200/78 05/31 1814 70 200/78 05/31 1659 65 198/70 05/31 1657 65 198/70 05/31 1600 99 BIPAP 40% 05/31 1600 62 99 05/31 1503 96.6 63 18 180/80 98 05/31 1427 66 98 05/31 1100 64 188/78 05/31 1009 64 188/78 05/31 0851 65 204/70 05/31 0851 65 204/70 05/31 0850 65 204/70 05/31 0850 65 204/70 05/31 0834 93 Nasal 4.0L Cannula Intake & Output 06/01 1600 06/01 0800 12/26 0000 Intake Total 200 984.4 Output Total 1600 Balance -1400 984.4 Intake, IV 104.4 Intake, Oral 200 880 Output, Urine 1600 Patient 188 lb Weight Weight Bed scale Measurement Method Physical Exam General Appearance: Alert, Oriented X3, Cooperative, Mild Distress Skin: No Rashes, No Breakdown, No Significant Lesion HEENT: PERRLA, EOMI Neck: Supple, No JVD, No thryomegaly Cardiovascular: Normal S1, Normal S2, No Murmurs, No S3 Lungs: Crackles: coarse; B/L basilar, diffuse proplonged expiratory wheezing Abdomen: Soft Neurological: Normal Gait Extremities: No Edema Current Medications: Current Medications Sig/Larissa Start time Last Medication Dose Route Stop Time Status Admin Acetaminophen 650 MG Q6P PRN 05/27 1245 AC 05/28 PO 0910 Acetaminophen 1,000 MG Q6P PRN 05/27 1245 AC IV Albuterol Sulfate 3 ML BID 05/27 2200 AC 06/01 INH 0607 Amlodipine Besylate 5 MG DAILY 06/01 1000 UNVr PO Amlodipine Besylate 10 MG DAILY 05/31 1000 DC 05/31 PO 1100 Amlodipine Besylate 5 MG DAILY 05/27 1209 DC 05/31 PO 0850 Apixaban 2.5 MG BID 06/01 1000 DC PO Apixaban 2.5 MG BID 05/31 1112 DC PO Aspirin Buffered 81 MG QPM 05/27 2200 AC 05/31 PO 2230 Atorvastatin Calcium 20 MG DAILY 05/27 1216 AC 05/31 PO 0848 Azithromycin 500 MG DAILY 05/28 1000 AC 05/31 Sodium Chloride 250 ML IV 0857 Budesonide/ 2 PUF DAILY 05/27 1213 AC 05/31 Formoterol Fumarate INH 0858 Carvedilol 25 MG BID 05/27 1211 AC 05/31 PO 1817 Ceftriaxone Sodium 1,000 MG DAILY 05/28 1000 AC 05/31 IV 0845 Cholecalciferol 1,000 IU DAILY 05/28 1000 AC 05/31 PO 0848 Duloxetine HCl 60 MG DAILY 05/28 1000 AC 05/31 PO 0848 Ferrous Sulfate 325 MG DAILY 05/28 1000 AC 05/31 PO 0848 Fish Oil 1,050 MG DAILY 05/28 1000 AC 05/31 PO 0846 Furosemide 40 MG 7:30 AM, & 4:30 PM 06/01 1630 AC IV Furosemide 40 MG ONCE ONE 05/31 2045 DC 05/31 IV 05/31 2046 2149 Guaifenesin 600 MG Q12 05/28 1000 AC 05/31 PO 223 Guaifenesin/ 10 ML Q6P PRN 05/29 0615 AC 05/29 Dextromethorphan PO 2149 Heparin Sodium 25,000 UNIT Q24H 05/29 1130 AC 05/31 (Porcine) IV 0847 Sodium Chloride 500 ML Hydralazine HCl 100 MG TID 05/27 1213 AC 05/31 PO 2232 Insulin Aspart 0 TIDAC 05/28 1200 AC 06/01 SC 0817 Insulin Detemir 20 UNITS BID 06/01 1000 UNVr SC Insulin Detemir 15 UNITS BID 05/27 1225 DC 05/31 SC 2233 Isosorbide 120 MG DAILY 06/01 1000 UNVr Mononitrate PO Isosorbide 60 MG DAILY 05/28 1000 DC 05/31 Mononitrate PO 0851 Levothyroxine Sodium 0.125 MG DAILY AC 05/27 1215 AC 06/01 PO 0544 Methylprednisolone 40 MG DAILY 05/27 1233 AC 05/31 IV 0845 Morphine Sulfate 4 MG Q4P PRN 05/27 1245 IV Oseltamivir Phosphate 30 MG DAILY 05/29 1000 AC 05/31 PO 06/02 0959 0847 Senna/Docusate Sodium 2 TAB AT BEDTIME 05/27 2200 AC 05/31 PO 2231 Last 24 Hrs of Lab/Jose Alejandro Results Last 24 Hrs of Labs/Mics: Laboratory Tests 06/01/17 0540: Anion Gap 12, Estimated GFR 23 L, BUN/Creatinine Ratio 45.2 H, Magnesium 2.4 H, APTT 84 H, CBC w Diff NO MAN DIFF REQ, RBC 3.11 L, MCV 87.3, MCH 28.8, RDW 17.0 H, MPV 9.1, Gran % 83.0 H, Lymphocytes % 8.1 L, Monocytes % 8.9, Eosinophils % 0, Basophils % 0, Absolute Granulocytes 7.5 H, Absolute Lymphocytes 0.7 L, Absolute Monocytes 0.8 H, Absolute Eosinophils 0, Absolute Basophils 0, PUBS MCHC 33.0 05/31/17 1655: APTT 69 H Microbiology 05/31 1700 UPPER RESP: Surveillance Culture - RECD 05/31 1247 UPPER RESP: Surveillance Culture - CAN Cancelled: Cancelled via OE: WRONG ORDER 05/31 1108 LOWER RESP: Surveillance Culture - CAN Cancelled: Cancelled via OE: WRONG ORDER Lines/Diet/Fluids Fluids/Infusions: heparin drip Catheters/Tubes: ferguson Ferguson Still Needed? Yes Assessment/Plan Assessment: The patient is a 71 year old female with an extensive past history including significant obstructive sleep apnea on nocturnal CPAP, HTN, HLD, Insulin dependent DM, chronic renal insufficiency, CHF, anemia, COPD, spinal stenosis s/ p spinal stimulator with chronic pain. Active Problem list 1. Acute on chronic hypoxic respiratory failure secondary to Possible multilobar pneumonia and flu B. on 3.5L of O2 (baseline 2L). increased A-a G that lasted for the past few day despite O2 therapy. The latest raise concern for intra-pulmonary shunt ( including PE, other causes could be ?? pneumonia, or severe pneumonitits 2/2 to Influenza, and/or fluid over load and pulmonary congestion). Her pretest probability is moderate for PE, in addition to getting V/Q we will check DD. For now patients needs to stay on IV heparin. 3. Acute on chronic kidney disease stage III, Cr 2.1 today (somewhat improved). 4. Positive troponins, 0.13, possible type II OK: Continue her antianginal and antiischemia medication ( statins, nitrate, B.blockers). 5. Hypertension: resume her home meds 6. Hx of type II DM and uncontrolled BS: increased levemir to 20 U BID and continue the same Novolog premeal SS Plan - Continue ceftriaxone and azithromycin and cefteriaxone for now; - Start Lasix IV 40 mg BID and check daily BEP -repeat CXR in the am - Continue IV steroids 40 ml daily - Last dose of Azithro and cefteriaxone today- 5 days of therapy - Advised screening for MRSA - follow sputum and nasopharyngeal culture - Continue Tamiflu x 5 days (06/02/2017) - last dose today - Continue heparin drip- for now before making the diagnosis of PE and comiting her to 3 or 6 month AC - Follow Echocardiogram - We will continue aspirin, Imdur, Coreg, statin - Continue hydralazine and amlodipine; home dose - Low threshold for ICU. - Monitor vitals every shift - Continue TRC nebs as needed - Try to taper down oxygen as tolerated - DVT prophylaxis - Heparin - Code status - Full code Problem List: 1. Respiratory failure 2. Renal insufficiency 3. Pulmonary infiltrates 4. Respiratory distress 5. COPD (chronic obstructive pulmonary disease) Pain Ratin Pain Location: back Pain Goal: Pain 4 or less Pain Plan: per pain pathway Tomorrow's Labs & Rationales: cbc bep Discharge Plan Discharge Disposition: home Stable for Discharge? No Anticipated Discharge (Day): unknown Harrison Michelle MD 06/01/17 1616: Attending MD Review Statement Attending Statement Attending MD Statement: examined this patient, discuss w/resident/PA/AUTOMATIC TOE LASTER, agreed w/resident/PA/AUTOMATIC TOE LASTER, reviewed EMR data (avail) Attending Assessment/Plan: 71F PMH obstructive sleep apnea on nocturnal CPAP, HTN, HLD, Insulin dependent DM, chronic renal insufficiency, CHF, anemia, COPD, spinal stenosis s/p spinal stimulator with chronic pain admitted with acute hypoxemic respiratory failure secondary to influenza pneumonia and acute on chronic diastolic CHF, complicated by Type 2 myocardial infarction and acute on chronic kidney injury. Patient has no complaints today and feels well, though she still has orthopnea when lying flat. She is diuresing well and her lungs have bibasilar crackles. Repeat CXR today shows improved aeration of lungs from prior. V/Q shows low likelihood of PE. 1. Acute hypoxemic respiratory failure 2. Influenza pneumonia, bilateral lower lobe 3. Type 2 myocardial infarction 4. Acute on chronic kidney injury stage 3 5. SUSIE on CPAP Plan - Continue on telemetry - Continue Lasix 40mg IV BID - Increase Imdur - Follow cardiology, nephrology, and pulmonary recommendations - Continue Prednisone - Nebulizer treatments - Can likely discontinue heparin drip but will confirm with cardiology - Continue home medications - Continue Tamiflu - DVT PPx
--- NOTE | 2017-06-01 07:41 | PN- Cardiology ---
Subjective Subjective: Received Lasix 40 mg iv last night, feels little better today but still with resting dyspnea Review of Systems: 12 point ROS + for dyspnea, cough otherwise negative Objective Vital Signs and I&Os Vital Signs Date Time Temp Pulse Resp B/P B/P Pulse O2 O2 Flow FiO2 Mean Ox Delivery Rate 06/01 0652 97.6 61 20 154/72 96 BIPAP 06/01 0623 64 94 06/01 0622 932 Nasal 4.0L Cannula 06/01 0348 61 97 06/01 0049 65 96 05/31 2233 97.4 63 20 140/80 95 05/31 2208 96 66 05/31 1930 70 95 05/31 1817 70 200/78 05/31 1814 70 200/78 05/31 1659 65 198/70 05/31 1657 65 198/70 05/31 1600 99 BIPAP 40% 05/31 1600 62 99 05/31 1503 96.6 63 18 180/80 98 05/31 1427 66 98 05/31 1100 64 188/78 05/31 1009 64 188/78 05/31 0851 65 204/70 05/31 0851 65 204/70 05/31 0850 65 204/70 05/31 0850 65 204/70 05/31 0834 93 Nasal 4.0L Cannula 05/31 0800 93 Nasal 4.0L Cannula Intake & Output 06/01 0800 06/01 0000 05/31 1600 05/31 0800 05/31 0000 05/30 1600 Intake Total 984.4 788.8 288.8 200 1050 Output Total 250 425 400 350 Balance 984.4 538.8 -136.2 -200 700 Intake, IV 104.4 188.8 188.8 450 Intake, Oral 880 600 100 200 600 Output, Urine 250 425 400 350 Patient 188 lb 192 lb Weight Weight Bed scale Bed scale Measurement Method Physical Exam: HEENT-PERRLA Neck JVP nl, no bruits Lungs-bibasilar crackles, and rhonchi Heart-S1S2 regular no murmur Abdomen-soft, not tender, BS+, no organomegaly Ext-trace edema, 2+ pulses, no cyanosis Neuro-non focal skin-no rash Current Medications: Current Medications Sig/Larissa Start time Last Medication Dose Route Stop Time Status Admin Acetaminophen 650 MG Q6P PRN 05/27 1245 AC 05/28 PO 0910 Acetaminophen 1,000 MG Q6P PRN 05/27 1245 AC IV Albuterol Sulfate 3 ML BID 05/27 2200 AC 06/01 INH 0607 Amlodipine Besylate 10 MG DAILY 05/31 1000 AC 05/31 PO 1100 Amlodipine Besylate 5 MG DAILY 05/27 1209 DC 05/31 PO 0850 Apixaban 2.5 MG BID 06/01 1000 DC PO Apixaban 2.5 MG BID 05/31 1112 DC PO Aspirin Buffered 81 MG QPM 05/27 2200 AC 05/31 PO 2230 Atorvastatin Calcium 20 MG DAILY 05/27 1216 AC 05/31 PO 0848 Azithromycin 500 MG DAILY 05/28 1000 AC 05/31 Sodium Chloride 250 ML IV 0857 Budesonide/ 2 PUF DAILY 05/27 1213 AC 05/31 Formoterol Fumarate INH 0858 Carvedilol 25 MG BID 05/27 1211 AC 05/31 PO 1817 Ceftriaxone Sodium 1,000 MG DAILY 05/28 1000 AC 05/31 IV 0845 Cholecalciferol 1,000 IU DAILY 05/28 1000 AC 05/31 PO 0848 Duloxetine HCl 60 MG DAILY 05/28 1000 AC 05/31 PO 0848 Ferrous Sulfate 325 MG DAILY 05/28 1000 AC 05/31 PO 0848 Fish Oil 1,050 MG DAILY 05/28 1000 AC 05/31 PO 0846 Furosemide 40 MG ONCE ONE 05/31 2045 DC 05/31 IV 05/31 204 2149 Guaifenesin 600 MG Q12 05/28 1000 AC 05/31 PO 2231 Guaifenesin/ 10 ML Q6P PRN 05/29 0615 AC 05/29 Dextromethorphan PO 2149 Heparin Sodium 25,000 UNIT Q24H 05/29 1130 AC 05/31 (Porcine) IV 0847 Sodium Chloride 500 ML Hydralazine HCl 100 MG TID 05/27 1213 AC 05/31 PO 2232 Insulin Aspart 0 TIDAC 05/28 1200 AC 05/31 SC 1700 Insulin Detemir 15 UNITS BID 05/27 1225 AC 05/31 SC 2233 Isosorbide 60 MG DAILY 05/28 1000 AC 05/31 Mononitrate PO 0851 Levothyroxine Sodium 0.125 MG DAILY AC 05/27 1215 AC 06/01 PO 0544 Methylprednisolone 40 MG DAILY 05/27 1233 AC 05/31 IV 0845 Morphine Sulfate 4 MG Q4P PRN 05/27 1245 AC IV Oseltamivir Phosphate 30 MG DAILY 05/29 1000 AC 05/31 PO 06/02 0959 0847 Senna/Docusate Sodium 2 TAB AT BEDTIME 05/27 2200 AC 05/31 PO 2231 Assessment/Plan Assessment/Plan 71 year old female with h/o CAD, LCX stentx2 in 2013, HTN, dyslipidemia, DM, CRI , CHF (last cath in August 2016 revealing non obstructive CAD, increased LVEDP), anemia, COPD admitted with respiratory failure secondary to pneumonia/flu, ARF on CRI. She remains oxygen dependent. Blood pressure not well controlled. Component of HFpEF. Borderline troponin non specific-likely demand ischemia from respiratory failure , ARF, hypoxia. No new ekg changes. Although PE is a possibility she would need definitive test before subjecting her to 3-6 months of anticoagulation. CTA not possible due to ARF, V/Q scan can be done but specificity will be lower due to her underlying lung disease and CHF. Plan: Lasix 40 mg iv bid today monitor daily weights, renal function and BMP CXR tomorrow increase Imdur 120 mg qd V/Q scan echo Continue telemetry? Yes
--- NOTE | 2017-06-01 08:58 | PN- Pulmonary ---
Subjective HPI/Critical Care Issues: The patient is awake and alert. She continues to feel short of breath but is slowly improving. She offers no new complaints today. Objective Current Medications: Current Medications Sig/Larissa Start time Last Medication Dose Route Stop Time Status Admin Acetaminophen 650 MG Q6P PRN 05/27 1245 AC 05/28 PO 0910 Acetaminophen 1,000 MG Q6P PRN 05/27 1245 AC IV Albuterol Sulfate 3 ML BID 05/27 2200 AC 06/01 INH 0607 Amlodipine Besylate 5 MG DAILY 06/01 1000 AC PO Amlodipine Besylate 10 MG DAILY 05/31 1000 DC 05/31 PO 1100 Amlodipine Besylate 5 MG DAILY 05/27 1209 DC 05/31 PO 0850 Apixaban 2.5 MG BID 06/01 1000 DC PO Apixaban 2.5 MG BID 05/31 1112 DC PO Aspirin Buffered 81 MG QPM 05/27 2200 AC 05/31 PO 2230 Atorvastatin Calcium 20 MG DAILY 05/27 1216 AC 05/31 PO 0848 Azithromycin 500 MG DAILY 05/28 1000 r 05/31 Sodium Chloride 250 ML IV 06/01 1200 0857 Budesonide/ 2 PUF DAILY 05/27 1213 AC 05/31 Formoterol Fumarate INH 0858 Carvedilol 25 MG BID 05/27 1211 AC 05/31 PO 1817 Ceftriaxone Sodium 1,000 MG DAILY 05/28 1000 r 05/31 IV 06/01 1200 0845 Cholecalciferol 1,000 IU DAILY 05/28 1000 AC 05/31 PO 0848 Duloxetine HCl 60 MG DAILY 05/28 1000 AC 05/31 PO 0848 Ferrous Sulfate 325 MG DAILY 05/28 1000 AC 05/31 PO 0848 Fish Oil 1,050 MG DAILY 05/28 1000 AC 05/31 PO 0846 Furosemide 40 MG 7:30 AM, & 4:30 PM 06/01 1630 AC IV Furosemide 40 MG ONCE ONE 05/31 2045 DC 05/31 IV 05/31 2046 2149 Guaifenesin 600 MG Q12 05/28 1000 AC 05/31 PO 2231 Guaifenesin/ 10 ML Q6P PRN 05/29 0615 AC 05/29 Dextromethorphan PO 2149 Heparin Sodium 25,000 UNIT Q24H 05/29 1130 AC 05/31 (Porcine) IV 0847 Sodium Chloride 500 ML Hydralazine HCl 100 MG TID 05/27 1213 AC 05/31 PO 2232 Insulin Aspart 0 TIDAC 05/28 1200 AC 06/01 SC 0817 Insulin Detemir 20 UNITS BID 06/01 1000 AC SC Insulin Detemir 15 UNITS BID 05/27 1225 DC 05/31 SC 2233 Isosorbide 120 MG DAILY 06/01 1000 AC Mononitrate PO Isosorbide 60 MG DAILY 05/28 1000 DC 05/31 Mononitrate PO 0851 Levothyroxine Sodium 0.125 MG DAILY AC 05/27 1215 AC 06/01 PO 0544 Methylprednisolone 40 MG DAILY 05/27 1233 AC 05/31 IV 0845 Morphine Sulfate 4 MG Q4P PRN 05/27 1245 AC IV Oseltamivir Phosphate 30 MG DAILY 05/29 1000 AC 05/31 PO 06/02 0959 0847 Senna/Docusate Sodium 2 TAB AT BEDTIME 05/27 2200 AC 05/31 PO 2231 Vital Signs & I&O Last 24 Hrs of Vitals and I&O: Vital Signs Date Time Temp Pulse Resp B/P B/P Pulse O2 O2 Flow FiO2 Mean Ox Delivery Rate 06/01 0751 67 97 06/01 0652 97.6 61 20 154/72 96 BIPAP 06/01 0623 64 94 06/01 0622 932 Nasal 4.0L Cannula 06/01 0348 61 97 06/01 0049 65 96 06/01 0000 95 BIPAP 05/31 2233 97.4 63 20 140/80 95 05/31 2208 96 66 05/31 1930 70 95 05/31 1817 70 200/78 05/31 1814 70 200/78 05/31 1659 65 198/70 05/31 1657 65 198/70 05/31 1600 99 BIPAP 40% 05/31 1600 62 99 05/31 1503 96.6 63 18 180/80 98 05/31 1427 66 98 05/31 1100 64 188/78 05/31 1009 64 188/78 Intake & Output 06/01 1600 06/01 0800 06/01 0000 Intake Total 200 984.4 Output Total 1600 Balance -1400 984.4 Intake, IV 104.4 Intake, Oral 200 880 Output, Urine 1600 Patient 188 lb Weight Weight Bed scale Measurement Method Physical Exam General Appearance: no apparent distress, alert, awake, comfortable Head: atraumatic, normal appearance Eyes: Bilateral: PERRL. Neck: supple Respiratory: decreased breath sounds, crackles, rhonchi Cardiovascular: S1 and S2 heard Gastrointestinal: normal bowel sounds, soft, non-tender Extremities: no edema Skin: intact, normal color, warm/dry Results Last 24 Hrs of Lab Results: Laboratory Tests 06/01/17 0540: Anion Gap 12, Estimated GFR 23 L, BUN/Creatinine Ratio 45.2 H, Magnesium 2.4 H, APTT 84 H, CBC w Diff NO MAN DIFF REQ, RBC 3.11 L, MCV 87.3, MCH 28.8, RDW 17.0 H, MPV 9.1, Gran % 83.0 H, Lymphocytes % 8.1 L, Monocytes % 8.9, Eosinophils % 0, Basophils % 0, Absolute Granulocytes 7.5 H, Absolute Lymphocytes 0.7 L, Absolute Monocytes 0.8 H, Absolute Eosinophils 0, Absolute Basophils 0, PUBS MCHC 33.0 05/31/17 1655: APTT 69 H Impression/Plan Impression/Plan Impression/Plan: 1. Multilobar pneumonia, respiratory failure requiring temporary BIPAP, influenza swab positive. 2. Recurrent congestive heart failure. 3. History of hypertension. 4. Chronic anemia without evidence of active bleeding. 5. Chronic kidney disease, stage III, secondary to hypertensive/diabetic nephrosclerosis. Diuretics on hold due to worsening renal function. 6. History of obstructive sleep apnea, on nocturnal nasal CPAP. 7. History diabetes. 8. Hypothyroidism, on Synthroid. 9. History of asthma/COPD. Recommendations: * Monitor off antibiotics * Please check a follow-up PA and lateral chest x-ray for ongoing evaluation. * Continue nocturnal CPAP. * Taper oxygen for saturations greater than 92%. * Monitor ambulatory oxygen saturations and titrate supplemental O2 for a saturation greater than 88% with activity and greater than 92% at rest. * Continue Symbicort and albuterol. * Continue nebs/TRC. * Lasix 40 mg IV bid today per cardiology. * Agree with V/Q scan and ECHO. * Attempt to wean solumedrol down to off as tolerated - change to prednisone 40 mg. * Continue home medications as per primary medicine team. * DVT prophylaxis at all times. * Continue all supportive care.
--- NOTE | 2017-06-01 09:54 | RADIOLOGY REPORT ---
EXAMINATION: XR PORTABLE CHEST CLINICAL INFORMATION: 71-year-old female with shortness of breath and pneumonia. COMPARISON: 05/31/2017 TECHNIQUE: Portable frontal view of the chest was obtained. FINDINGS: Stable cardiomegaly. Improved aeration noted throughout both lung kern. Persistent bilateral hazy airspace opacities are present, greatest in the lower lobes, left greater than right. There are probable small bilateral pleural effusions, left greater than right. No pneumothorax. No acute osseous ovale. Neurostimulator is again noted projecting over the spine. IMPRESSION: Improved aeration to both lungs with interval decrease in bilateral airspace opacities/pulmonary edema.
--- NOTE | 2017-06-01 10:58 | PN- Nephrology ---
Assessment/Plan Assessment: Stage III CKD - Thought to be 2/2 DM, HTN. Baseline SCr in high 1's. STEVE - Likely 2/2 mild ATN in the setting of influenza. Improving with time. Other potential etiology on the ddx would be volume depletion in the setting of overdiuresis - given findings on chest x-ray, doubt this is the case. Pulm edema - Improved with diuretics. Suggestion: -Lasix 40mg IV BID today -f/u labs/clinical status tomorrow before dosing more diuretics -Tamiflu Please call [phone] with ?'s Subjective Subjective: SCr down to 2.1 Given 40mg IV lasix - 675cc UOP recorded yesterday and 1600cc UOP so far today Chest x-ray done this AM noted to have decrease in pulm edema Breathing a little bit better Objective Vital Signs and I&Os Vital Signs Date Time Temp Pulse Resp B/P B/P Pulse O2 O2 Flow FiO2 Mean Ox Delivery Rate 06/01 1056 62 138/70 06/01 1056 62 138/70 06/01 1037 96 Nasal 4.0L Cannula 06/01 0917 64 150/70 06/01 0917 64 150/70 06/01 0751 67 97 06/01 0652 97.6 61 20 154/72 96 BIPAP 06/01 0623 64 94 06/01 0622 932 Nasal 4.0L Cannula 06/01 0348 61 97 06/01 0049 65 96 06/01 0000 95 BIPAP 05/31 2233 97.4 63 20 140/80 95 05/31 2208 96 66 05/31 1930 70 95 05/31 1817 70 200/78 05/31 1814 70 200/78 05/31 1659 65 198/70 05/31 1657 65 198/70 05/31 1600 99 BIPAP 40% 05/31 1600 62 99 05/31 1503 96.6 63 18 180/80 98 05/31 1427 66 98 Intake & Output 06/01 1600 06/01 0400 05/31 1600 05/31 0400 05/30 1600 05/30 0400 Intake Total 200 984.4 1077.6 200 1338.8 480 Output Total 1600 675 400 950 250 Balance -1400 984.4 402.6 -200 388.8 230 Intake, IV 104.4 377.6 638.8 80 Intake, Oral 200 880 700 200 700 400 Number 0 Bowel Movements Output, Urine 1600 675 400 950 250 Patient 188 lb 192 lb Weight Weight Bed scale Bed scale Measurement Method Physical Exam: Gen - OK appearing HEENT - supple CV - RRR, no m/r/g Chest - coarse breath sounds b/l Abd - soft, NTND Ext - no edema Neuro - AOX3, grossly nonfocal Current Medications: Current Medications Sig/Larissa Start time Last Medication Dose Route Stop Time Status Admin Acetaminophen 650 MG Q6P PRN 05/27 1245 AC 05/28 PO 0910 Acetaminophen 1,000 MG Q6P PRN 05/27 1245 AC IV Albuterol Sulfate 3 ML BID 05/27 2200 AC 06/01 INH 1033 Amlodipine Besylate 5 MG DAILY 06/01 1000 AC 06/01 PO 1056 Amlodipine Besylate 10 MG DAILY 05/31 1000 DC 05/31 PO 1100 Apixaban 2.5 MG BID 06/01 1000 DC PO Aspirin Buffered 81 MG QPM 05/27 2200 AC 05/31 PO 2230 Atorvastatin Calcium 20 MG DAILY 05/27 1216 AC 06/01 PO 0918 Azithromycin 500 MG DAILY 05/28 1000 AC 06/01 Sodium Chloride 250 ML IV 06/01 1200 0918 Budesonide/ 2 PUF DAILY 05/27 1213 AC 06/01 Formoterol Fumarate INH 0919 Carvedilol 25 MG BID 05/27 1211 AC 06/01 PO 0917 Ceftriaxone Sodium 1,000 MG DAILY 05/28 1000 AC 06/01 IV 06/01 1200 0918 Cholecalciferol 1,000 IU DAILY 05/28 1000 AC 06/01 PO 0918 Duloxetine HCl 60 MG DAILY 05/28 1000 AC 06/01 PO 0918 Ferrous Sulfate 325 MG DAILY 05/28 1000 AC 06/01 PO 0918 Fish Oil 1,050 MG DAILY 05/28 1000 AC 06/01 PO 0918 Furosemide 40 MG 7:30 AM, & 4:30 PM 06/01 1630 AC IV Furosemide 40 MG ONCE ONE 05/31 2045 DC 05/31 IV 05/31 Guaifenesin 600 MG Q12 05/28 1000 AC 06/01 PO 0918 Guaifenesin/ 10 ML Q6P PRN 05/29 0615 AC 05/29 Dextromethorphan PO 214 Heparin Sodium 25,000 UNIT Q24H 05/29 1130 AC 05/31 (Porcine) IV 0847 Sodium Chloride 500 ML Hydralazine HCl 100 MG TID 05/27 1213 AC 06/01 PO 0917 Insulin Aspart 0 TIDAC 05/28 1200 AC 06/01 SC 0817 Insulin Detemir 20 UNITS BID 06/01 1000 AC 06/01 SC 0918 Insulin Detemir 15 UNITS BID 05/27 1225 DC 05/31 SC 2233 Isosorbide 120 MG DAILY 06/01 1000 AC 06/01 Mononitrate PO 1056 Isosorbide 60 MG DAILY 05/28 1000 DC 05/31 Mononitrate PO 0851 Levothyroxine Sodium 0.125 MG DAILY AC 05/27 1215 AC 06/01 PO 0544 Methylprednisolone 40 MG DAILY 05/27 1233 AC 06/01 IV 0919 Morphine Sulfate 4 MG Q4P PRN 05/27 1245 AC IV Oseltamivir Phosphate 30 MG DAILY 05/29 1000 AC 06/01 PO 06/02 0959 0919 Senna/Docusate Sodium 2 TAB AT BEDTIME 05/27 2200 AC 05/31 PO 2231 Results Pertinent Lab Results: Laboratory Tests 06/01 05/31 0540 1655 Chemistry Sodium (137 - 145 mmol/L) 141 Potassium (3.5 - 5.1 mmol/L) 4.2 Chloride (98 - 107 mmol/L) 106 Carbon Dioxide (22 - 30 mmol/L) 23 Anion Gap (5 - 16) 12 BUN (7 - 17 mg/dL) 95 H Creatinine (0.5 - 1.0 mg/dL) 2.1 H Estimated GFR (>60 ml/min) 23 L BUN/Creatinine Ratio (7 - 25 %) 45.2 H Magnesium (1.6 - 2.3 mg/dL) 2.4 H Coagulation APTT (25 - 37 SEC) 84 H 69 H Hematology CBC w Diff NO MAN DIFF REQ WBC (4.8 - 10.8 /CUMM) 9.1 RBC (4.20 - 5.40 /CUMM) 3.11 L Hgb (12.0 - 16.0 G/DL) 9.0 L Hct (37 - 47 %) 27.1 L MCV (81.0 - 99.0 FL) 87.3 MCH (27.0 - 31.0 PG) 28.8 RDW (11.5 - 14.5 %) 17.0 H Plt Count (130 - 400 /CUMM) 198 MPV (7.4 - 10.4 FL) 9.1 Gran % (42.2 - 75.2 %) 83.0 H Lymphocytes % (20.5 - 51.1 %) 8.1 L Monocytes % (1.7 - 9.3 %) 8.9 Eosinophils % (0 - 5 %) 0 Basophils % (0.0 - 2.0 %) 0 Absolute Granulocytes (1.4 - 6.5 /CUMM) 7.5 H Absolute Lymphocytes (1.2 - 3.4 /CUMM) 0.7 L Absolute Monocytes (0.10 - 0.60 /CUMM) 0.8 H Absolute Eosinophils (0.0 - 0.7 /CUMM) 0 Absolute Basophils (0.0 - 0.2 /CUMM) 0 PUBS MCHC (33.0 - 37.0 G/DL) 33.0 05/31 05/30 0410 1730 Chemistry Sodium (137 - 145 mmol/L) 142 Potassium (3.5 - 5.1 mmol/L) 4.1 Chloride (98 - 107 mmol/L) 105 Carbon Dioxide (22 - 30 mmol/L) 22 Anion Gap (5 - 16) 15 BUN (7 - 17 mg/dL) 92 H Creatinine (0.5 - 1.0 mg/dL) 2.2 H Estimated GFR (>60 ml/min) 22 L BUN/Creatinine Ratio (7 - 25 %) 41.8 H Coagulation APTT (25 - 37 SEC) 88 H 87 H Hematology CBC w Diff MAN DIFF ORDERED WBC (4.8 - 10.8 /CUMM) 9.4 RBC (4.20 - 5.40 /CUMM) 3.10 L Hgb (12.0 - 16.0 G/DL) 9.1 L Hct (37 - 47 %) 27.2 L MCV (81.0 - 99.0 FL) 87.9 MCH (27.0 - 31.0 PG) 29.2 RDW (11.5 - 14.5 %) 16.5 H Plt Count (130 - 400 /CUMM) 190 MPV (7.4 - 10.4 FL) 9.1 Segmented Neutrophils (42.2 - 75.2 %) 93 H Lymphocytes (20.5 - 51.1 %) 5 L Monocytes (1.7 - 9.3 %) 2 Platelet Estimate (ADEQUATE) ADEQUATE Polychromasia 1+ Poikilocytosis 1+ Ovalocytes 1+ PUBS MCHC (33.0 - 37.0 G/DL) 33.3 Other Body Source Fld Total RBCs Counted (%) 100 05/30 05/29 05/29 0425 2105 1800 Chemistry Sodium (137 - 145 mmol/L) 139 Potassium (3.5 - 5.1 mmol/L) 4.1 Chloride (98 - 107 mmol/L) 104 Carbon Dioxide (22 - 30 mmol/L) 23 Anion Gap (5 - 16) 11 BUN (7 - 17 mg/dL) 90 H Creatinine (0.5 - 1.0 mg/dL) 2.4 H Estimated GFR (>60 ml/min) 20 L BUN/Creatinine Ratio (7 - 25 %) 37.5 H Troponin I (< 0.11 ng/ml) 0.09 Coagulation APTT (25 - 37 SEC) 82 H 58 H Hematology CBC w Diff NO MAN DIFF REQ WBC (4.8 - 10.8 /CUMM) 10.7 RBC (4.20 - 5.40 /CUMM) 3.04 L Hgb (12.0 - 16.0 G/DL) 8.9 L Hct (37 - 47 %) 26.7 L MCV (81.0 - 99.0 FL) 87.9 MCH (27.0 - 31.0 PG) 29.2 RDW (11.5 - 14.5 %) 16.5 H Plt Count (130 - 400 /CUMM) 192 MPV (7.4 - 10.4 FL) 8.8 Gran % (42.2 - 75.2 %) 90.9 H Lymphocytes % (20.5 - 51.1 %) 5.3 L Monocytes % (1.7 - 9.3 %) 3.8 Eosinophils % (0 - 5 %) 0 Basophils % (0.0 - 2.0 %) 0 Absolute Granulocytes (1.4 - 6.5 /CUMM) 9.7 H Absolute Lymphocytes (1.2 - 3.4 /CUMM) 0.6 L Absolute Monocytes (0.10 - 0.60 /CUMM) 0.4 Absolute Eosinophils (0.0 - 0.7 /CUMM) 0 Absolute Basophils (0.0 - 0.2 /CUMM) 0 PUBS MCHC (33.0 - 37.0 G/DL) 33.2 05/29 05/29 05/29 1220 1220 1220 Blood Gas pH (7.35 - 7.45 PH) 7.41 pCO2 (35 - 45 TORR) 33 L pO2 (80 - 100 TORR) 84 HCO3 (21 - 28 MEQ/L) 21 ABG O2 Sat (Measured) (>96.0 %) 95.0 L P-50 (Temp Corrected) N Carboxyhemoglobin (1.5 - 5.0 %) 1.0 L O2 Concentration % 3L Temperature (97.0 - 100.0 FARH) 98.2 O2 Delivery Method N/C Chemistry Sodium (137 - 145 mmol/L) Cancelled 142 Potassium (3.5 - 5.1 mmol/L) Cancelled 4.0 Chloride (98 - 107 mmol/L) Cancelled 106 Carbon Dioxide (22 - 30 mmol/L) Cancelled 22 Anion Gap (5 - 16) Cancelled 14 BUN (7 - 17 mg/dL) Cancelled 79 H Creatinine (0.5 - 1.0 mg/dL) Cancelled 2.5 H Estimated GFR (>60 ml/min) 19 L BUN/Creatinine Ratio (7 - 25 %) Cancelled 31.6 H Troponin I (< 0.11 ng/ml) 0.13 *H TSH (0.270 - 4.200 uIU/mL) Cancelled 6.310 H Free T4 (0.78 - 2.44 ng/dL) Cancelled 1.34 Coagulation D-Dimer High Sensitivty (0 - 243 ng/ml) 260 H Hematology CBC w Diff NO MAN DIFF REQ WBC (4.8 - 10.8 /CUMM) 12.3 H RBC (4.20 - 5.40 /CUMM) 2.99 L Hgb (12.0 - 16.0 G/DL) 8.8 L Hct (37 - 47 %) 26.4 L MCV (81.0 - 99.0 FL) 88.4 MCH (27.0 - 31.0 PG) 29.3 RDW (11.5 - 14.5 %) 16.7 H Plt Count (130 - 400 /CUMM) 183 MPV (7.4 - 10.4 FL) 8.9 Gran % (42.2 - 75.2 %) 88.8 H Lymphocytes % (20.5 - 51.1 %) 5.6 L Monocytes % (1.7 - 9.3 %) 5.6 Eosinophils % (0 - 5 %) 0 Basophils % (0.0 - 2.0 %) 0 Absolute Granulocytes (1.4 - 6.5 /CUMM) 10.9 H Absolute Lymphocytes (1.2 - 3.4 /CUMM) 0.7 L Absolute Monocytes (0.10 - 0.60 /CUMM) 0.7 H Absolute Eosinophils (0.0 - 0.7 /CUMM) 0 Absolute Basophils (0.0 - 0.2 /CUMM) 0 PUBS MCHC (33.0 - 37.0 G/DL) 33.2 Miscellaneous Phlebotomy Draw Site RIGHT RADIAL Imaging/Other Studies: EXAM TYPE: RAD - XRY-PORTABLE CHEST XRAY EXAMINATION: XR PORTABLE CHEST CLINICAL INFORMATION: 71-year-old female with shortness of breath and pneumonia. COMPARISON: 05/31/2017 TECHNIQUE: Portable frontal view of the chest was obtained. FINDINGS: Stable cardiomegaly. Improved aeration noted throughout both lung kern. Persistent bilateral hazy airspace opacities are present, greatest in the lower lobes, left greater than right. There are probable small bilateral pleural effusions, left greater than right. No pneumothorax. No acute osseous ovale. Neurostimulator is again noted projecting over the spine. IMPRESSION: Improved aeration to both lungs with interval decrease in bilateral airspace opacities/pulmonary edema.
--- NOTE | 2017-06-01 15:14 | NUCLEAR MEDICINE REPORT ---
EXAMINATION: PULMONARY VENTILATION PERFUSION STUDY CLINICAL INFORMATION: Persistent hypoxia. VTE suspected. COMPARISON: Chest x-ray earlier 06/01/2017. TECHNIQUE: Serial gamma scintillation camera images were obtained over the posterior chest during the single breath, equilibrium rebreathing and washout of 8.87 mCi Xe 133 gas. The patient then received 4.11 mCi Tc-99m MAA intravenously and a 6-view perfusion study was performed. FINDINGS: Ventilation images: On the single breath and equilibrium images there is homogeneous distribution of gas bilaterally, with a minimal amount of retention at the right base. This washes out on the washout phase and there is no abnormal retention at the end of the study. Perfusion images: No segmental perfusion defects are present. There is slightly heterogenous distribution of activity bilaterally. There are no focal anatomic appearing perfusion defects present. IMPRESSION: 1. Very low probability lung ventilation perfusion scan for pulmonary embolus.
[2017-06-01 16:00] VITALS: BP 140/80
[2017-06-02] VITALS (8 sets, daily range): BP systolic 188–244; BP diastolic 56–100
--- NOTE | 2017-06-02 07:13 | PN- Cardiology ---
Subjective Subjective: Breathing improved with iv lasix Objective Vital Signs and I&Os Vital Signs Date Time Temp Pulse Resp B/P B/P Pulse O2 O2 Flow FiO2 Mean Ox Delivery Rate 06/02 0656 97.8 65 24 188/80 92 BIPAP 06/02 0000 BIPAP 35% 06/01 2305 98.5 24 95 Nasal Cannula 06/01 2144 70 93 06/01 2132 74 184/72 06/01 2132 74 184/72 06/01 1825 94 Nasal 4.0L Cannula 06/01 1600 Nasal 4.0L Cannula 06/01 1600 98 18 140/80 94 Nasal 4.0L Cannula 06/01 1537 62 138/70 06/01 1209 Nasal 4.0L Cannula 06/01 1056 62 138/70 06/01 1056 62 138/70 06/01 1037 96 Nasal 4.0L Cannula 06/01 0917 64 150/70 06/01 0917 64 150/70 06/01 0800 95 Nasal 4.0L Cannula 06/01 0751 67 97 Intake & Output 06/02 0800 06/02 0000 06/01 1600 06/01 0800 06/01 0000 05/31 1600 Intake Total 200 918 200 984.4 788.8 Output Total 700 1600 250 Balance -500 918 -1400 984.4 538.8 Intake, IV 438 104.4 188.8 Intake, Oral 200 480 200 880 600 Number 1 Bowel Movements Output, Urine 700 1600 250 Patient 188 lb 188 lb Weight Weight Bed scale Measurement Method Physical Exam: HEENT-PERRLA Neck-jvp normal,no bruits Lungs-bilateral rhonchi Heart-S1S2 regular,no murmur Abdomen-soft, not tender, BS+,no organomegaly Extr- trace edema, 2+ distal pulses Neuro-non focal Current Medications: Current Medications Sig/Larissa Start time Last Medication Dose Route Stop Time Status Admin Acetaminophen 650 MG Q6P PRN 05/27 1245 AC 05/28 PO 0910 Acetaminophen 1,000 MG Q6P PRN 05/27 1245 AC IV Albuterol Sulfate 3 ML BID 05/27 2200 AC 06/01 INH 1825 Amlodipine Besylate 5 MG DAILY 06/01 1000 AC 06/01 PO 1056 Amlodipine Besylate 10 MG DAILY 05/31 1000 DC 05/31 PO 1100 Apixaban 2.5 MG BID 06/01 1000 DC PO Aspirin Buffered 81 MG QPM 05/27 2200 AC 06/01 PO 2131 Atorvastatin Calcium 20 MG DAILY 05/27 1216 AC 06/01 PO 0918 Azithromycin 500 MG DAILY 05/28 1000 DC 06/01 Sodium Chloride 250 ML IV 06/01 1200 0918 Budesonide/ 2 PUF DAILY 05/27 1213 AC 06/01 Formoterol Fumarate INH 0919 Carvedilol 25 MG BID 05/27 1211 AC 06/01 PO 2132 Ceftriaxone Sodium 1,000 MG DAILY 05/28 1000 DC 06/01 IV 06/01 1200 0918 Cholecalciferol 1,000 IU DAILY 05/28 1000 AC 06/01 PO 0918 Duloxetine HCl 60 MG DAILY 05/28 1000 AC 06/01 PO 0918 Ferrous Sulfate 325 MG DAILY 05/28 1000 AC 06/01 PO 0918 Fish Oil 1,050 MG DAILY 05/28 1000 AC 06/01 PO 0918 Furosemide 40 MG 7:30 AM, & 4:30 PM 06/02 0730 AC 06/02 IV 0653 Furosemide 40 MG 7:30 AM, & 4:30 PM 06/01 1630 DC 06/01 IV 06/01 2200 1537 Guaifenesin 600 MG Q12 05/28 1000 AC 06/01 PO 2131 Guaifenesin/ 10 ML Q6P PRN 05/29 0615 AC 05/29 Dextromethorphan PO 2149 Heparin Sodium 25,000 UNIT Q24H 05/29 1130 DC 06/01 (Porcine) IV 1339 Sodium Chloride 500 ML Hydralazine HCl 100 MG TID 05/27 1213 AC 06/01 PO 2132 Insulin Aspart 0 TIDAC 05/28 1200 AC 06/01 SC 1729 Insulin Detemir 20 UNITS BID 06/01 1000 AC 06/01 SC 2131 Insulin Detemir 15 UNITS BID 05/27 1225 DC 05/31 SC 2233 Isosorbide 120 MG DAILY 06/01 1000 AC 06/01 Mononitrate PO 1056 Isosorbide 60 MG DAILY 05/28 1000 DC 05/31 Mononitrate PO 0851 Levothyroxine Sodium 0.125 MG DAILY AC 05/27 1215 AC 06/02 PO 0642 Methylprednisolone 40 MG DAILY 05/27 1233 DC 06/01 IV 0919 Morphine Sulfate 4 MG Q4P PRN 05/27 1245 AC IV Oseltamivir Phosphate 30 MG DAILY 05/29 1000 AC 06/01 PO 06/02 0959 0919 Prednisone 40 MG DAILY 06/02 1000 AC PO Senna/Docusate Sodium 2 TAB AT BEDTIME 05/27 2200 AC 06/01 PO 2131 Results Last 48 Hrs of Labs/Mics: Laboratory Tests 06/02/17 0645: Sodium Pending, Potassium Pending, Chloride Pending, Carbon Dioxide Pending, Anion Gap Pending, BUN Pending, Creatinine Pending, BUN/Creatinine Ratio Pending , CBC w Diff Pending, WBC Pending, RBC Pending, Hgb Pending, Hct Pending, MCV Pending, MCH Pending, RDW Pending, Plt Count Pending, MPV Pending, PUBS MCHC Pending 06/01/17 1800: APTT Cancelled 06/01/17 0540: Anion Gap 12, Estimated GFR 23 L, BUN/Creatinine Ratio 45.2 H, Magnesium 2.4 H, APTT 84 H, CBC w Diff NO MAN DIFF REQ, RBC 3.11 L, MCV 87.3, MCH 28.8, RDW 17.0 H, MPV 9.1, Gran % 83.0 H, Lymphocytes % 8.1 L, Monocytes % 8.9, Eosinophils % 0, Basophils % 0, Absolute Granulocytes 7.5 H, Absolute Lymphocytes 0.7 L, Absolute Monocytes 0.8 H, Absolute Eosinophils 0, Absolute Basophils 0, PUBS MCHC 33.0 05/31/17 1655: APTT 69 H Recent Imaging Studies: CXR-improved pulmonary edema Assessment/Plan Assessment/Plan 71 year old female with h/o CAD, LCX stentx2 in 2013, HTN, dyslipidemia, DM, CRI , CHF (last cath in August 2016 revealing non obstructive CAD, increased LVEDP), anemia, COPD admitted with respiratory failure secondary to pneumonia/flu, ARF on CRI. She remains oxygen dependent. Blood pressure not well controlled. Component of HFpEF. Good response to iv Lasix. V/Q scan with low probability for PE. Plan: Lasix 40 mg iv qd today monitor daily weights, renal function and BMP increase Imdur 120 mg qd increase amlodipine back to 10mg qd will restart irbesartan once renal function stable cancel echo (low suspicion for PE and RVdysfunction, she had echo in April) ambulate, taper oxygen Continue telemetry? Yes
--- NOTE | 2017-06-02 07:24 | PN- Housestaff ---
Wanda Solano 06/02/17 0720: Subjective Follow-up For: Acute hypoxic chronic respiratory failure Acute on chronic hypoxic respiratory failure Fluid over Influenza B CKD III B HFpEF Complaints: no complaints Tele-Events Since Last Visit: no tele event Subjective: patient was visited and examined today used BiPaP overnight; currently on NC; comfortable; uses full sentences for communication. past 24 h fluid balance was -500 + ferguson reports mild shortness of breath, particulary exertional. Review of Systems Constitutional: Reports: see HPI. EENTM: Reports: no symptoms. Cardiovascular: Reports: no symptoms. Respiratory: Reports: see HPI, cough, short of breath, sputum production. Gastrointestinal: Reports: no symptoms. Musculoskeletal: Reports: see HPI. Objective Last 24 Hrs of Vital Signs/I&O Vital Signs Date Time Temp Pulse Resp B/P B/P Pulse O2 O2 Flow FiO2 Mean Ox Delivery Rate 06/02 0808 92 Nasal 4.0L Cannula 06/02 0803 61 92 06/02 0800 92 Nasal 4.0L Cannula 06/02 0656 97.8 65 24 188/80 92 BIPAP 06/02 0000 BIPAP 35% 06/01 2305 98.5 24 95 Nasal Cannula 06/01 2144 70 93 06/01 2132 74 184/72 06/01 2132 74 184/72 06/01 1825 94 Nasal 4.0L Cannula 06/01 1600 Nasal 4.0L Cannula 06/01 1600 98 18 140/80 94 Nasal 4.0L Cannula 06/01 1537 62 138/70 06/01 1209 Nasal 4.0L Cannula 06/01 1056 62 138/70 06/01 1056 62 138/70 06/01 1037 96 Nasal 4.0L Cannula 06/01 0917 64 150/70 06/01 0917 64 150/70 Intake & Output 06/02 1600 06/02 0800 06/02 0000 Intake Total 200 200 Output Total 700 700 Balance -500 -500 Intake, Oral 200 200 Output, Urine 700 700 Patient 191 lb Weight Weight Bed scale Measurement Method Physical Exam General Appearance: Alert, Oriented X3, Cooperative, Mild Distress Skin: No Rashes, No Breakdown, No Significant Lesion HEENT: PERRLA, EOMI Lymphatic: Axillary nl, Cervical nl Cardiovascular: Normal S1, Normal S2, No Murmurs Lungs: coarse bibasilar crackle Abdomen: Soft Extremities: No Cyanosis, No Edema Current Medications: Current Medications Sig/Larissa Start time Last Medication Dose Route Stop Time Status Admin Acetaminophen 650 MG Q6P PRN 05/27 1245 AC 05/28 PO 0910 Acetaminophen 1,000 MG Q6P PRN 05/27 1245 AC IV Albuterol Sulfate 3 ML BID 05/27 2200 AC 06/02 INH 0808 Amlodipine Besylate 10 MG DAILY 06/02 1000 AC PO Amlodipine Besylate 5 MG DAILY 06/01 1000 DC 06/01 PO 1056 Apixaban 2.5 MG BID 06/01 1000 DC PO Aspirin Buffered 81 MG QPM 05/27 2200 AC 06/01 PO 2131 Atorvastatin Calcium 20 MG DAILY 05/27 1216 AC 06/01 PO 0918 Azithromycin 500 MG DAILY 05/28 1000 DC 06/01 Sodium Chloride 250 ML IV 06/01 1200 0918 Budesonide/ 2 PUF DAILY 05/27 1213 AC 06/01 Formoterol Fumarate INH 0919 Carvedilol 25 MG BID 05/27 1211 AC 06/01 PO 2132 Ceftriaxone Sodium 1,000 MG DAILY 05/28 1000 DC 06/01 IV 06/01 1200 0918 Cholecalciferol 1,000 IU DAILY 05/28 1000 AC 06/01 PO 0918 Duloxetine HCl 60 MG DAILY 05/28 1000 AC 06/01 PO 0918 Ferrous Sulfate 325 MG DAILY 05/28 1000 AC 06/01 PO 0918 Fish Oil 1,050 MG DAILY 05/28 1000 AC 06/01 PO 0918 Furosemide 40 MG 7:30 AM, & 4:30 PM 06/02 0730 DC 06/02 IV 0653 Furosemide 40 MG ONCE ONE 06/02 0730 DC IV 06/02 0731 Furosemide 40 MG 7:30 AM, & 4:30 PM 06/01 1630 DC 06/01 IV 06/01 2200 1537 Guaifenesin 600 MG Q12 05/28 1000 AC 06/01 PO 2131 Guaifenesin/ 10 ML Q6P PRN 05/29 0615 AC 05/29 Dextromethorphan PO 2149 Heparin Sodium 25,000 UNIT Q24H 05/29 1130 DC 06/01 (Porcine) IV 1339 Sodium Chloride 500 ML Hydralazine HCl 100 MG TID 05/27 1213 AC 06/01 PO 2132 Insulin Aspart 0 TIDAC 05/28 1200 AC 06/02 SC 0832 Insulin Detemir 25 UNITS BID 06/02 1000 AC SC Insulin Detemir 20 UNITS BID 06/01 1000 DC 06/01 SC 2131 Isosorbide 120 MG DAILY 06/01 1000 AC 06/01 Mononitrate PO 1056 Levothyroxine Sodium 0.125 MG DAILY AC 05/27 1215 AC 06/02 PO 0642 Methylprednisolone 40 MG DAILY 05/27 1233 DC 06/01 IV 0919 Morphine Sulfate 4 MG Q4P PRN 05/27 1245 AC IV Oseltamivir Phosphate 30 MG DAILY 05/29 1000 AC 06/01 PO 06/02 0959 0919 Prednisone 40 MG DAILY 06/02 1000 AC PO Senna/Docusate Sodium 2 TAB AT BEDTIME 05/270 AC 06/01 PO 213 Last 24 Hrs of Lab/Jose Alejandro Results Last 24 Hrs of Labs/Mics: Laboratory Tests 06/02/17 0645: Sodium Pending, Potassium Pending, Chloride Pending, Carbon Dioxide Pending, Anion Gap Pending, BUN Pending, Creatinine Pending, BUN/Creatinine Ratio Pending , CBC w Diff NO MAN DIFF REQ, RBC 3.14 L, MCV 87.2, MCH 28.6, RDW 17.0 H, MPV 9.2, Gran % 82.5 H, Lymphocytes % 8.8 L, Monocytes % 8.6, Eosinophils % 0, Basophils % 0.1, Absolute Granulocytes 8.8 H, Absolute Lymphocytes 0.9 L, Absolute Monocytes 0.9 H, Absolute Eosinophils 0, Absolute Basophils 0, PUBS MCHC 32.8 L 06/01/17 1800: APTT Cancelled Lines/Diet/Fluids Ferguson Still Needed? Yes Assessment/Plan Assessment: The patient is a 71 year old female with an extensive past history including significant obstructive sleep apnea on nocturnal CPAP, HTN, HLD, Insulin dependent DM, chronic renal insufficiency, CHF, anemia, COPD, spinal stenosis s/ p spinal stimulator with chronic pain. Active Problem list 1. Acute on chronic hypoxic respiratory failure secondary to Possible multilobar pneumonia and flu B. on 3.5L of O2 (baseline 2L). increased A-a G that lasted for the past few day despite O2 therapy. The latest raise concern for intra-pulmonary shunt ( including PE, other causes could be ?? pneumonia, or severe pneumonitits 2/2 to Influenza, and/or fluid over load and pulmonary congestion). Her pretest probability is moderate for PE, in addition to getting V/Q we will check DD. For now patients needs to stay on IV heparin. 3. Acute on chronic kidney disease stage III, Cr 2.1 today (somewhat improved). 4. Positive troponins, 0.13, possible type II DE: Continue her antianginal and antiischemia medication ( statins, nitrate, B.blockers). 5. Hypertension: resume her home meds 6. Hx of type II DM and uncontrolled BS: increased levemir to 25 U BID and continue the same Novolog premeal SS Plan - watch off Abx -lasix dose; 40 mg IV push and daily dose; no standing order -fluid restriction; maintaine Neg fluid balance -repeat CXR in the am - Po prednisosne 40 mg daily - last dose of Tamiflu x 5 days - DC ed heparin drip-normal VQ scan and low probable wells score - Follow Echocardiogram-cancelled by Dr. Mtz - We will continue aspirin, Imdur, Coreg, statin - Continue hydralazine and amlodipine ( increased to 10 mg) - Continue TRC nebs as needed - Try to taper down oxygen as tolerated and ambulate - DVT prophylaxis - Heparin Code status - Full code Problem List: 1. Asthma 2. Diabetes mellitus 3. History of - hypertension 4. Hyperlipidemia 5. Hypothyroidism 6. METABOLIC SYNDROME 7. Obesity 8. Wound infection 9. DVT prophylaxis 10. Cellulitis 11. Pneumonia 12. SUSIE on CPAP 13. Acute on chronic kidney disease, stage 3 14. CHF (congestive heart failure) 15. Shingles 16. Acute kidney injury 17. Medication reaction 18. Altered mental status 19. Post herpetic neuralgia 20. Full code status 21. CHF (congestive heart failure) 22. Leg edema 23. CKD stage G3b/A1, GFR 30-44 and albumin creatinine ratio <30 mg/g 24. Hypocalcemia 25. Chest heaviness 26. Osteoarthritis 27. Hyponatremia 28. Hyperkalemia 29. Chronic kidney disease 30. Diabetes 31. Hypothyroidism 32. COPD exacerbation 33. Hypoxia 34. Orthostatic hypotension 35. Near syncope 36. Hypoglycemia 37. Adverse drug effect 38. Acute on chronic congestive heart failure 39. Pneumonia 40. Anemia 41. Depression 42. Acute prerenal azotemia 43. Fever 44. COPD (chronic obstructive pulmonary disease) 45. Respiratory distress 46. Pulmonary infiltrates 47. Renal insufficiency 48. Hypertensive urgency 49. Respiratory failure Pain Ratin Pain Location: none Pain Goal: Remain pain free Pain Plan: per pain pathway Tomorrow's Labs & Rationales: bep DVT/Prophylaxis: pharmacological Harrison Michelle MD 06/02/17 1114: Attending MD Review Statement Attending Statement Attending MD Statement: examined this patient, discuss w/resident/PA/VICE PRESIDENT FIXED INCOME, agreed w/resident/PA/VICE PRESIDENT FIXED INCOME, reviewed EMR data (avail) Attending Assessment/Plan: 71F PMH obstructive sleep apnea on nocturnal CPAP, HTN, HLD, Insulin dependent DM, chronic renal insufficiency, CHF, anemia, COPD, spinal stenosis s/p spinal stimulator with chronic pain admitted with acute hypoxemic respiratory failure secondary to influenza pneumonia and acute on chronic diastolic CHF, complicated by Type 2 myocardial infarction and acute on chronic kidney injury. Patient has no complaints today and feels well, though she still has orthopnea when lying flat. She is diuresing well and her lungs have bibasilar crackles. Repeat CXR today shows improved aeration of lungs from prior. V/Q shows low likelihood of PE. 1. Acute hypoxemic respiratory failure 2. Influenza pneumonia, bilateral lower lobe 3. Type 2 myocardial infarction 4. Acute on chronic kidney injury stage 3 5. SUSIE on CPAP Plan - Continue on telemetry - Continue Lasix 40mg IV BID - Continue Imdur - Follow cardiology, nephrology, and pulmonary recommendations - Continue Prednisone - Nebulizer treatments - Heparin and antibiotics discontinued - Continue home medications - Continue Tamiflu, last dose today - DVT PPx
[2017-06-02 08:01] LABS: ABSOLUTE BASOPHIL COUNT 0 /CUMM (0.0-0.2); ABSOLUTE EOSINOPHIL COUNT 0 /CUMM (0.0-0.7); ABSOLUTE GRANULOCYTE CT 8.8 /CUMM (1.4-6.5); ABSOLUTE LYMPH COUNT 0.9 /CUMM (1.2-3.4); ABSOLUTE MONOCYTE COUNT 0.9 /CUMM (0.10-0.60); BASOPHIL % 0.1 % (0.0-2.0); EOSINOPHIL % 0 % (0-5); GRANULOCYTE % 82.5 % (42.2-75.2); HEMATOCRIT 27.4 % (37-47); MEAN CORPUSCULAR HGB 28.6 PG (27.0-31.0); MEAN CORPUSCULAR HGB CONC 32.8 G/DL (33.0-37.0); MEAN CORPUSCULAR VOLUME 87.2 FL (81.0-99.0); MEAN PLATELET VOLUME 9.2 FL (7.4-10.4); PLATELET COUNT 193 /CUMM (130-400); RED BLOOD CELL CT 3.14 /CUMM (4.20-5.40); WHITE BLOOD CELL COUNT 10.6 /CUMM (4.8-10.8)
--- NOTE | 2017-06-02 08:56 | Discharge Summary ---
See Addendum Visit Information Visit Dates Admission Date: 05/27/17 Discharge Date: 06/03/17 Hospital Course Course Attending Physician: Bronwyn Garcia MD Primary Care Physician: Sal GUTIERREZ,[facility] Course: Mrs. Weber is a 71 year old woman who presented to us with worsening shortness of breath, mainly exertional, for a week. according to patient her grand kid was sick about week ago and after visiting [facility], patient felt worsening detorioration of her respiratory status. Over the stretch of one week prior to presentation patient has spikes of fever, symptoms of URI and body ache. She had to increase her O2 from 2 lit to 4 lit and had used rescue INH more frequently with minimal releif. In the ED department patient was found to have a slight temperature of 100.2. Her blood gas showed severe hypoxic respiratory failure which eventually needed NIV. Initial labs showed BUN of 39, Cr 1.8, WBC 8.8 and pro-BNP of 4600 and negative Trop x3 . CT scan of the chest was obtained, which was not certain for flesh pulmonary edema (CHF decompensation) and documented questionable edema and pneumonitis. High index of suspicious for viral infection was followed by rapid flu test, which came back positive for Influenza B. and patient was started on Tamiflu x5 day. IV cefteriaxone and Azithromycin, which was initially started for possible pneumonia, were stopped and patient was resumed on IV solumedrol. On the third day of hospitalization, patient had a surge in her troponin. ACS ( due to persistent hypoxia 2/2 to flu) and/or PTE eevents were considered to be the top priorities in the list of DDx. Patient was started on IV heparin ( after - Guiac test), Wells score was low-intermediate and IV heparin was stopped. EKGs remained unchanged and patient was diagnosed with [place] T2. During this admission, Mrs. Weber developed an STEVE (ATN) secondary to, persumably, influenza infection ( Cr. peacked at 2.9). As the reult of this insult, patients' recovery hampered by devloping pulmonary edema ( edema). Patient was seen and managed by medical team and her subspecialist ( cardiac nurse specialist, academic affairs coordinator and career agent). During the remainder of the course of hospital stay, patients' clinical condition improved and finally she was switched to Po prednisone slow taper and finished the tamiflu. Kidney function gradually, improved ( back to baseline on 06/03/2017) and patient diurised with Iv lasix and also fluid restriction. On 06/03/2017, patient O2 titrated down to 3 lit and she was documented to have satisfactory resting and ambulatory O2 % around, 92% and 89% respectively. Other issues that were addressed: #HTN urgency: Amlodipine was increased to 10 mg and lisinopril to 100 mg po. Bumetanide 1 mg BID was held and lasix was used instaed for diuresis. Hydralazine 100 mg TID was continued. #Hypothyroidism: Continue 125 mcg #CAD s/p stent: She was continued on ASA, Lipitor, and carvedilol and imdur. The dose of imdur was increased to 120 mg. #IDDM: Continue home dose for Levemir. #Depression: Continue Cymbalta 60mg daily Allergies: Coded Allergies: povidone-iodine (From BETADINE) (RASH 04/11/17) ITCH PER ANTIBIOTIC ORDER SHEET OF 12/04/16 (SJS) soap (From BETADINE) (RASH 04/11/17) PARISH Inhibitors (Mild, COUGH 04/11/17) Disposition Summary Disposition Principal Diagnosis: Acute Hypoxic respiratory failure 2/2 to flu Additional Diagnosis: CKD stage IIIB and fluid over load; ATN secondary to influeza Virus Discharge Disposition: home or self care Discharge Instructions General Discharge Information Code Status: Full Code Patient's Diet: CKD CHF DM Patient's Activity: as tolerated Follow-Up Instructions/Appts: Follow up with your cardiac nurse specialist Dr. Mtz Follow up with your career agent Follow up with your academic affairs coordinator Medications at Discharge Discharge Medications: Stop taking the following medications: Azilsartan Medoxomil (Edarbi) 80 MG TABLET ORAL DAILY Qty = 30 Copies To: Sal GUTIERREZ,Jacinta Attending MD Review Statement Documenting Attending: Harrison Michelle MD Other Findings: PATIENT: JOSELYN WEBER PRESENT AGE: 71 PATIENT ACCOUNT NO: [id number] : 45 LOCATION: 1NO ORDERING PHYSICIAN: Wanda Solano MD SERVICE DATE: 06/01/17- EXAM TYPE: NUC - LUNG SCAN (V/Q) EXAMINATION: PULMONARY VENTILATION PERFUSION STUDY CLINICAL INFORMATION: Persistent hypoxia. VTE suspected. COMPARISON: Chest x-ray earlier 06/01/2017. TECHNIQUE: Serial gamma scintillation camera images were obtained over the posterior chest during the single breath, equilibrium rebreathing and washout of 8.87 mCi Xe 133 gas. The patient then received 4.11 mCi Tc-99m MAA intravenously and a 6-view perfusion study was performed. FINDINGS: Ventilation images: On the single breath and equilibrium images there is homogeneous distribution of gas bilaterally, with a minimal amount of retention at the right base. This washes out on the washout phase and there is no abnormal retention at the end of the study. Perfusion images: No segmental perfusion defects are present. There is slightly heterogenous distribution of activity bilaterally. There are no focal anatomic appearing perfusion defects present. IMPRESSION: 1. Very low probability lung ventilation perfusion scan for pulmonary embolus. DICTATED BY: Nick Falcon MD DATE/TIME DICTATED:06/01/171503 [employer] VICE PRESIDENT [employer] (EX ):DEEP DATE/TIME TRANSCRIBED:06/01/171503 CONFIDENTIAL, DO NOT COPY WITHOUT APPROPRIATE AUTHORIZATION. <Electronically signed in Other Vendor System> SIGNED BY: Nick Falcon MD 06/01/17 1514 PATIENT: JOSELYN WEBER PRESENT AGE: 71 PATIENT ACCOUNT NO: [id number] : 45 LOCATION: [facility] ORDERING PHYSICIAN: Wanda Solano MD SERVICE DATE: 05/27/17- EXAM TYPE: CAT - CT CHEST WO IV CONTRAST EXAMINATION: CT CHEST WITHOUT CONTRAST CLINICAL INFORMATION: Shortness of breath. Presumptive diagnosis of CHF versus pneumonia. COMPARISON: Chest x-ray dated 05/27/2017. CT scan of the chest dated 04/11/2017. TECHNIQUE: Multidetector volumetric CT imaging of the chest was obtained noncontrast. Sagittal and coronal reformations were obtained. DLP: 340.16 mGy-cm. FINDINGS: LUNGS: There are small bilateral posterior layering pleural effusions, which extend from the lung bases up to the lung apices, slightly larger on the right side than the left and overall larger compared to the prior exam. Compared to the prior exam, there are now diffuse bilateral patchy groundglass opacities, which are in a predominantly peribronchovascular distribution and are associated with air bronchograms. Findings are nonspecific and may represent interval development of multifocal pneumonitis (viral or atypical pneumonitis). However, there are also findings which would be compatible with and which would favor diffuse alveolar edema with subpleural reticulation, enlargement of the central vessels and septal thickening seen along with the bilateral enlarging pleural effusions. Close clinical correlation will be needed. The central airways are patent though mildly narrowed centrally due to the enlarged pulmonary vessels. Compared to the prior exam, there is now improved aeration in the previously densely consolidated left lower lobe and right lower lobe. No pneumothorax is seen. LYMPHOVASCULAR STRUCTURES: Aortic size normal. Mild atherosclerotic calcifications of the aorta are seen. Cardiac silhouette is enlarged. Moderate coronary artery calcifications is seen. No pericardial effusion. Abnormal mediastinal adenopathy is seen with 1.3 cm prevascular lymph nodes, 1.6 cm lower right paratracheal lymph nodes, 1.5 cm subcarinal lymph node, and 1 cm left AP window lymph nodes. Findings are unchanged from prior exam and may be reactive. The [place] are difficult to evaluate for adenopathy on noncontrast imaging. No definite axillary adenopathy is seen. THYROID GLAND: Markedly atrophic and suboptimally assessed. UPPER ABDOMEN: Included portions of the solid organs in the upper abdomen within normal limits. BONES: Multilevel moderate degenerative changes as seen in the thoracic spine. No suspicious focal findings. IMPRESSION: 1. Interval development of is bilateral groundglass opacities with associated septal thickening and peripheral subpleural reticulations. Findings are nonspecific, but in the setting of enlarging bilateral pleural effusions, cardiomegaly, enlarged central pulmonary vessels would favor alveolar pulmonary edema. Close clinical correlation is requested. Findings may also be related to multifocal diffuse pneumonitis (viral or atypical). 2. Persistent abnormal mediastinal adenopathy, unchanged from prior exam, likely reactive. DICTATED BY: Melly Francois MD DATE/TIME DICTATED:05/27/171555 [employer] VICE PRESIDENT [employer] (EX ):DEEP DATE/TIME TRANSCRIBED:05/27/171555 CONFIDENTIAL, DO NOT COPY WITHOUT APPROPRIATE AUTHORIZATION. <Electronically signed in Other Vendor System> SIGNED BY: Melly Francois MD. [id number]
--- NOTE | 2017-06-02 09:15 | PN- Pulmonary ---
Subjective HPI/Critical Care Issues: The patient remains on BiPAP. She continues to have ongoing crackles bilaterally. Her chest x-ray yesterday showed improved aeration however there were findings consistent with pulmonary edema. Her BUN and creatinine have slightly improved this morning. Her blood pressure was elevated this morning. She remains afebrile. She has no leukocytosis or bandemia. Objective Current Medications: Current Medications Sig/Larissa Start time Last Medication Dose Route Stop Time Status Admin Acetaminophen 650 MG Q6P PRN 05/27 1245 AC 05/28 PO 0910 Acetaminophen 1,000 MG Q6P PRN 05/27 1245 AC IV Albuterol Sulfate 3 ML BID 05/27 2200 AC 06/02 INH 0808 Amlodipine Besylate 10 MG DAILY 06/02 1000 AC PO Amlodipine Besylate 5 MG DAILY 06/01 1000 DC 06/01 PO 1056 Apixaban 2.5 MG BID 06/01 1000 DC PO Aspirin Buffered 81 MG QPM 05/27 2200 AC 06/01 PO 2131 Atorvastatin Calcium 20 MG DAILY 05/27 1216 AC 06/01 PO 0918 Azithromycin 500 MG DAILY 05/28 1000 DC 06/01 Sodium Chloride 250 ML IV 06/01 1200 0918 Budesonide/ 2 PUF DAILY 05/27 1213 AC 06/01 Formoterol Fumarate INH 0919 Carvedilol 25 MG BID 05/27 1211 AC 06/01 PO 2132 Ceftriaxone Sodium 1,000 MG DAILY 05/28 1000 DC 06/01 IV 06/01 1200 0918 Cholecalciferol 1,000 IU DAILY 05/28 1000 AC 06/01 PO 0918 Duloxetine HCl 60 MG DAILY 05/28 1000 AC 06/01 PO 0918 Ferrous Sulfate 325 MG DAILY 05/28 1000 AC 06/01 PO 0918 Fish Oil 1,050 MG DAILY 05/28 1000 AC 06/01 PO 0918 Furosemide 40 MG 7:30 AM, & 4:30 PM 06/02 0730 DC 06/02 IV 0653 Furosemide 40 MG ONCE ONE 06/02 0730 DC IV 06/02 0731 Furosemide 40 MG 7:30 AM, & 4:30 PM 06/01 1630 DC 06/01 IV 06/01 2200 1537 Guaifenesin 600 MG Q12 05/28 1000 AC 06/01 PO 2131 Guaifenesin/ 10 ML Q6P PRN 05/29 0615 AC 05/29 Dextromethorphan PO 2149 Heparin Sodium 5,000 UNIT Q8 06/02 0853 AC (Porcine) SC Heparin Sodium 25,000 UNIT Q24H 05/29 1130 DC 06/01 (Porcine) IV 1339 Sodium Chloride 500 ML Hydralazine HCl 100 MG TID 05/27 1213 AC 06/01 PO 2132 Insulin Aspart 0 TIDAC 05/28 1200 AC 06/02 SC 0832 Insulin Detemir 25 UNITS BID 06/02 1000 AC SC Insulin Detemir 20 UNITS BID 06/01 1000 DC 06/01 SC 2131 Isosorbide 120 MG DAILY 06/01 1000 AC 06/01 Mononitrate PO 1056 Levothyroxine Sodium 0.125 MG DAILY AC 05/27 1215 AC 06/02 PO 0642 Methylprednisolone 40 MG DAILY 05/27 1233 DC 06/01 IV 0919 Morphine Sulfate 4 MG Q4P PRN 05/27 1245 AC IV Oseltamivir Phosphate 30 MG DAILY 05/29 1000 AC 06/01 PO 06/02 0959 0919 Prednisone 40 MG DAILY 06/02 1000 AC PO Senna/Docusate Sodium 2 TAB AT BEDTIME 05/27 2200 AC 06/01 PO 2131 Vital Signs & I&O Last 24 Hrs of Vitals and I&O: Vital Signs Date Time Temp Pulse Resp B/P B/P Pulse O2 O2 Flow FiO2 Mean Ox Delivery Rate 06/02 0808 92 Nasal 4.0L Cannula 06/02 0803 61 92 06/02 0800 92 Nasal 4.0L Cannula 06/02 0656 97.8 65 24 188/80 92 BIPAP 06/02 0000 BIPAP 35% 06/01 2305 98.5 24 95 Nasal Cannula 06/01 2144 70 93 06/01 2132 74 184/72 06/01 2132 74 184/72 06/01 1825 94 Nasal 4.0L Cannula 06/01 1600 Nasal 4.0L Cannula 06/01 1600 98 18 140/80 94 Nasal 4.0L Cannula 06/01 1537 62 138/70 06/01 1209 Nasal 4.0L Cannula 06/01 1056 62 138/70 06/01 1056 62 138/70 06/01 1037 96 Nasal 4.0L Cannula 06/01 0917 64 150/70 06/01 0917 64 150/70 Intake & Output 06/02 1600 06/02 0800 06/02 0000 Intake Total 200 200 Output Total 700 700 Balance -500 -500 Intake, Oral 200 200 Output, Urine 700 700 Patient 191 lb Weight Weight Bed scale Measurement Method Physical Exam General Appearance: no apparent distress, alert, awake, comfortable Head: atraumatic, normal appearance Eyes: Bilateral: PERRL. Neck: supple Respiratory: decreased breath sounds, crackles, rhonchi Cardiovascular: S1 and S2 heard Gastrointestinal: normal bowel sounds, soft, non-tender Extremities: no edema Skin: intact, normal color, warm/dry Results Last 24 Hrs of Lab Results: Laboratory Tests 06/02/17 0645: Anion Gap 9, Estimated GFR 26 L, BUN/Creatinine Ratio 45.3 H, CBC w Diff NO MAN DIFF REQ, RBC 3.14 L, MCV 87.2, MCH 28.6, RDW 17.0 H, MPV 9.2, Gran % 82.5 H, Lymphocytes % 8.8 L, Monocytes % 8.6, Eosinophils % 0, Basophils % 0.1, Absolute Granulocytes 8.8 H, Absolute Lymphocytes 0.9 L, Absolute Monocytes 0.9 H, Absolute Eosinophils 0, Absolute Basophils 0, PUBS MCHC 32.8 L 06/01/17 1800: APTT Cancelled Diagnostic Data CXR Findings: Findings consistent with pulmonary edema. Impression/Plan Impression/Plan Impression/Plan: 1. Multilobar pneumonia, respiratory failure requiring BIPAP, influenza swab positive. 2. Recurrent congestive heart failure, chest x-ray shows persistent pulmonary edema. 3. History of hypertension. 4. Chronic anemia without evidence of active bleeding. 5. Chronic kidney disease, stage III, secondary to hypertensive/diabetic nephrosclerosis. Diuretics were on hold due to worsening renal function. 6. History of obstructive sleep apnea, on nocturnal nasal CPAP. 7. History diabetes. 8. Hypothyroidism, on Synthroid. 9. History of asthma/COPD. Recommendations: * Monitor off antibiotics * Please check a follow-up PA and lateral chest x-ray for ongoing evaluation. * Continue BIPAP as tolerated. * Taper oxygen for saturations greater than 92%. * Monitor oxygen saturations if able, and titrate supplemental O2 for a saturation greater than 88% with activity and greater than 92% at rest. * Continue Symbicort and albuterol. * Continue nebs/TRC. * Cardiology to decide on diuresis - would suggest restarting Lasix. * Wean down steroids by 10 mg every 3 days. * Continue home medications as per primary medicine team. * DVT prophylaxis at all times. * Continue all supportive care.
--- NOTE | 2017-06-02 12:19 | PN- Nephrology ---
Assessment/Plan Assessment: Stage III CKD - Thought to be 2/2 DM, HTN. Baseline SCr in high 1's. STEVE - Likely 2/2 mild ATN in the setting of influenza. Has improved even despite IV lasix administration. Pulm edema - Improved with diuretics. Discussed with family that given pulm edema on chest imaging, would plan for BID lasix today. HTN - BP above goal. Given that her SCr is back to baseline, would be reasonable to restart her ARB. Should hopefully improve with diuresis as well. Suggestion: -Lasix 40mg IV BID today - I will write for 3pm dose -OK to restart irbesartan 150mg daily (home med) -f/u labs/clinical status tomorrow before dosing more diuretics -Tamiflu Please call [phone] with ?'s Subjective Subjective: Pt feeling a bit better SCr down to 1.9 Got a single dose of IV lasix BP very labile - 210/90 - written for Enalaprilat IV Objective Vital Signs and I&Os Vital Signs Date Time Temp Pulse Resp B/P B/P Pulse O2 O2 Flow FiO2 Mean Ox Delivery Rate 06/02 1146 65 210/90 06/02 1107 65 210/90 06/02 0954 60 208/100 06/02 0952 60 208/100 06/02 0952 60 208/100 06/02 0952 60 208/100 06/02 0952 60 208/100 06/02 0808 92 Nasal 4.0L Cannula 06/02 0803 61 92 06/02 0800 92 Nasal 4.0L Cannula 06/02 0656 97.8 65 24 188/80 92 BIPAP 06/02 0000 BIPAP 35% 06/01 2305 98.5 24 95 Nasal Cannula 06/01 2144 70 93 06/01 2132 74 184/72 06/01 2132 74 184/72 06/01 1825 94 Nasal 4.0L Cannula 06/01 1600 Nasal 4.0L Cannula 06/01 1600 98 18 140/80 94 Nasal 4.0L Cannula 06/01 1537 62 138/70 Intake & Output 06/02 1600 06/02 0400 06/01 1600 06/01 0400 05/31 1600 05/31 0400 Intake Total 388 004 7556 984.4 1077.6 200 Output Total 896 374 2429 675 400 Balance -500 -500 -482 984.4 402.6 -200 Intake, IV 438 104.4 377.6 Intake, Oral 200 200 680 880 700 200 Number 1 Bowel Movements Output, Urine 943 478 7871 675 400 Patient 191 lb 188 lb Weight Weight Bed scale Bed scale Measurement Method Physical Exam: Gen - OK appearing HEENT - supple CV - RRR, no m/r/g Chest - coarse breath sounds Abd - soft, NTND Ext - trace edema Neuro - AOX3, grossly nonfocal Current Medications: Current Medications Sig/Larissa Start time Last Medication Dose Route Stop Time Status Admin Acetaminophen 650 MG Q6P PRN 05/27 1245 AC 05/28 PO 0910 Acetaminophen 1,000 MG Q6P PRN 05/27 1245 AC IV Albuterol Sulfate 3 ML BID 05/27 2200 AC 06/02 INH 0808 Amlodipine Besylate 10 MG DAILY 06/02 1000 AC 06/02 PO 0954 Amlodipine Besylate 5 MG DAILY 06/01 1000 DC 06/01 PO 1056 Aspirin Buffered 81 MG QPM 05/27 2200 AC 06/01 PO 2131 Atorvastatin Calcium 20 MG DAILY 05/27 1216 AC 06/02 PO 0952 Budesonide/ 2 PUF DAILY 05/27 1213 AC 06/02 Formoterol Fumarate INH 0953 Carvedilol 25 MG BID 05/27 1211 AC 06/02 PO 0952 Cholecalciferol 1,000 IU DAILY 05/28 1000 AC 06/02 PO 0953 Duloxetine HCl 60 MG DAILY 05/28 1000 AC 06/02 PO 0952 Enalaprilat 1.25 MG ONCE ONE 06/02 1115 DC 06/02 IV 06/02 1116 1146 Ferrous Sulfate 325 MG DAILY 05/28 1000 AC 06/02 PO 0952 Fish Oil 1,050 MG DAILY 05/28 1000 AC 06/02 PO 0954 Furosemide 40 MG 7:30 AM, & 4:30 PM 06/02 0730 DC 06/02 IV 0653 Furosemide 40 MG ONCE ONE 06/02 0730 DC IV 06/02 0731 Furosemide 40 MG 7:30 AM, & 4:30 PM 06/01 1630 DC 06/01 IV 06/01 2200 1537 Guaifenesin 600 MG Q12 05/28 1000 AC 06/02 PO 0952 Guaifenesin/ 10 ML Q6P PRN 05/29 0615 AC 05/29 Dextromethorphan PO 2149 Heparin Sodium 5,000 UNIT Q8 06/02 0853 AC 06/02 (Porcine) SC 0954 Heparin Sodium 25,000 UNIT Q24H 05/29 1130 DC 06/01 (Porcine) IV 1339 Sodium Chloride 500 ML Hydralazine HCl 100 MG TID 05/27 1213 AC 06/02 PO 0952 Insulin Aspart 0 TIDAC 05/28 1200 AC 06/02 SC 0832 Insulin Detemir 25 UNITS BID 06/02 1000 AC 06/02 SC 0954 Insulin Detemir 20 UNITS BID 06/01 1000 DC 06/01 SC 2131 Isosorbide 120 MG DAILY 06/01 1000 AC 06/02 Mononitrate PO 0952 Levothyroxine Sodium 0.125 MG DAILY AC 05/27 1215 AC 06/02 PO 0642 Methylprednisolone 40 MG DAILY 05/27 1233 DC 06/01 IV 0919 Morphine Sulfate 4 MG Q4P PRN 05/27 1245 AC IV Oseltamivir Phosphate 30 MG DAILY 05/29 1000 DC 06/01 PO 06/02 0959 0919 Prednisone 40 MG DAILY 06/02 1000 AC 06/02 PO 0953 Senna/Docusate Sodium 2 TAB AT BEDTIME 05/27 2200 AC 06/01 PO 2131 Results Pertinent Lab Results: Laboratory Tests 06/02 06/01 0645 1800 Chemistry Sodium (137 - 145 mmol/L) 140 Potassium (3.5 - 5.1 mmol/L) 4.3 Chloride (98 - 107 mmol/L) 108 H Carbon Dioxide (22 - 30 mmol/L) 23 Anion Gap (5 - 16) 9 BUN (7 - 17 mg/dL) 86 H Creatinine (0.5 - 1.0 mg/dL) 1.9 H Estimated GFR (>60 ml/min) 26 L BUN/Creatinine Ratio (7 - 25 %) 45.3 H Coagulation APTT Cancelled Hematology CBC w Diff NO MAN DIFF REQ WBC (4.8 - 10.8 /CUMM) 10.6 RBC (4.20 - 5.40 /CUMM) 3.14 L Hgb (12.0 - 16.0 G/DL) 9.0 L Hct (37 - 47 %) 27.4 L MCV (81.0 - 99.0 FL) 87.2 MCH (27.0 - 31.0 PG) 28.6 RDW (11.5 - 14.5 %) 17.0 H Plt Count (130 - 400 /CUMM) 193 MPV (7.4 - 10.4 FL) 9.2 Gran % (42.2 - 75.2 %) 82.5 H Lymphocytes % (20.5 - 51.1 %) 8.8 L Monocytes % (1.7 - 9.3 %) 8.6 Eosinophils % (0 - 5 %) 0 Basophils % (0.0 - 2.0 %) 0.1 Absolute Granulocytes (1.4 - 6.5 /CUMM) 8.8 H Absolute Lymphocytes (1.2 - 3.4 /CUMM) 0.9 L Absolute Monocytes (0.10 - 0.60 /CUMM) 0.9 H Absolute Eosinophils (0.0 - 0.7 /CUMM) 0 Absolute Basophils (0.0 - 0.2 /CUMM) 0 PUBS MCHC (33.0 - 37.0 G/DL) 32.8 L 06/01 05/31 0540 1655 Chemistry Sodium (137 - 145 mmol/L) 141 Potassium (3.5 - 5.1 mmol/L) 4.2 Chloride (98 - 107 mmol/L) 106 Carbon Dioxide (22 - 30 mmol/L) 23 Anion Gap (5 - 16) 12 BUN (7 - 17 mg/dL) 95 H Creatinine (0.5 - 1.0 mg/dL) 2.1 H Estimated GFR (>60 ml/min) 23 L BUN/Creatinine Ratio (7 - 25 %) 45.2 H Magnesium (1.6 - 2.3 mg/dL) 2.4 H Coagulation APTT (25 - 37 SEC) 84 H 69 H Hematology CBC w Diff NO MAN DIFF REQ WBC (4.8 - 10.8 /CUMM) 9.1 RBC (4.20 - 5.40 /CUMM) 3.11 L Hgb (12.0 - 16.0 G/DL) 9.0 L Hct (37 - 47 %) 27.1 L MCV (81.0 - 99.0 FL) 87.3 MCH (27.0 - 31.0 PG) 28.8 RDW (11.5 - 14.5 %) 17.0 H Plt Count (130 - 400 /CUMM) 198 MPV (7.4 - 10.4 FL) 9.1 Gran % (42.2 - 75.2 %) 83.0 H Lymphocytes % (20.5 - 51.1 %) 8.1 L Monocytes % (1.7 - 9.3 %) 8.9 Eosinophils % (0 - 5 %) 0 Basophils % (0.0 - 2.0 %) 0 Absolute Granulocytes (1.4 - 6.5 /CUMM) 7.5 H Absolute Lymphocytes (1.2 - 3.4 /CUMM) 0.7 L Absolute Monocytes (0.10 - 0.60 /CUMM) 0.8 H Absolute Eosinophils (0.0 - 0.7 /CUMM) 0 Absolute Basophils (0.0 - 0.2 /CUMM) 0 PUBS MCHC (33.0 - 37.0 G/DL) 33.0 05/31 05/30 0410 1730 Chemistry Sodium (137 - 145 mmol/L) 142 Potassium (3.5 - 5.1 mmol/L) 4.1 Chloride (98 - 107 mmol/L) 105 Carbon Dioxide (22 - 30 mmol/L) 22 Anion Gap (5 - 16) 15 BUN (7 - 17 mg/dL) 92 H Creatinine (0.5 - 1.0 mg/dL) 2.2 H Estimated GFR (>60 ml/min) 22 L BUN/Creatinine Ratio (7 - 25 %) 41.8 H Coagulation APTT (25 - 37 SEC) 88 H 87 H Hematology CBC w Diff MAN DIFF ORDERED WBC (4.8 - 10.8 /CUMM) 9.4 RBC (4.20 - 5.40 /CUMM) 3.10 L Hgb (12.0 - 16.0 G/DL) 9.1 L Hct (37 - 47 %) 27.2 L MCV (81.0 - 99.0 FL) 87.9 MCH (27.0 - 31.0 PG) 29.2 RDW (11.5 - 14.5 %) 16.5 H Plt Count (130 - 400 /CUMM) 190 MPV (7.4 - 10.4 FL) 9.1 Segmented Neutrophils (42.2 - 75.2 %) 93 H Lymphocytes (20.5 - 51.1 %) 5 L Monocytes (1.7 - 9.3 %) 2 Platelet Estimate (ADEQUATE) ADEQUATE Polychromasia 1+ Poikilocytosis 1+ Ovalocytes 1+ PUBS MCHC (33.0 - 37.0 G/DL) 33.3 Other Body Source Fld Total RBCs Counted (%) 100 Imaging/Other Studies: EXAM TYPE: RAD - XRY-PORTABLE CHEST XRAY EXAMINATION: XR PORTABLE CHEST CLINICAL INFORMATION: 71-year-old female with shortness of breath and pneumonia. COMPARISON: 05/31/2017 TECHNIQUE: Portable frontal view of the chest was obtained. FINDINGS: Stable cardiomegaly. Improved aeration noted throughout both lung kern. Persistent bilateral hazy airspace opacities are present, greatest in the lower lobes, left greater than right. There are probable small bilateral pleural effusions, left greater than right. No pneumothorax. No acute osseous ovale. Neurostimulator is again noted projecting over the spine. IMPRESSION: Improved aeration to both lungs with interval decrease in bilateral airspace opacities/pulmonary edema.
--- NOTE | 2017-06-02 13:31 | RADIOLOGY REPORT ---
EXAMINATION: XR PORTABLE CHEST CLINICAL INFORMATION: Hypoxia COMPARISON: CXR from 05/31/2017 and 06/01/2017 TECHNIQUE: Portable frontal view of the chest was obtained. FINDINGS: Considering the technique differences, there has been no significant interval change in patchy airspace opacity of both lungs. Persistent small pleural effusions without pneumothorax. Cardiac silhouette is partially obscured by the pulmonary disease. Azygos vein remains engorged. No new findings in the chest compared to the prior exam. IMPRESSION: Cardiomegaly and persistent bilateral patchy airspace opacification from alveolar edema and/or pneumonia.
[2017-06-03 06:48] VITALS: BP 168/90
--- NOTE | 2017-06-03 07:11 | PN- Housestaff ---
Wanda Solano 06/03/17 0710: Subjective Follow-up For: -Acute on chronic hypoxic respiratory failure- secondary to flu and fluid overload secondary to HPI -Uncontrolled hypertension -Uncontrolled blood sugar- Complaints: complains of mild headache Tele-Events Since Last Visit: Normal sinus rate and rhythm no incidents over the past 24 hour telemetry monitoring Subjective: Patient was visited and examined this morning. Feels much better. She offers no complaints except for mild headache in the a.m. denies chest pain, palpitation, shortness of breath, abdominal discomfort and early satiety. Vital signs: Showed elevated hypertension of 180s systolic. Ins and outs: -600 mL fluid balance Fingersticks: Fluctuates between 154-294 Daily weights: 85.5 KG from 87.1 on May 29 + Ferguson catheter Review of Systems Constitutional: Reports: see HPI. Objective Last 24 Hrs of Vital Signs/I&O Vital Signs Date Time Temp Pulse Resp B/P B/P Pulse O2 O2 Flow FiO2 Mean Ox Delivery Rate 06/03 0904 70 180/90 06/03 0904 70 180/90 06/03 0904 70 180/90 06/03 0903 70 180/90 06/03 0903 70 180/90 06/03 0847 95 Nasal 4.0L Cannula 06/03 0648 98.2 62 22 168/90 96 BIPAP 06/03 0632 72 95 06/03 0347 88 95 06/03 0000 BIPAP 35% 06/02 2200 98.2 66 22 190/56 96 Nasal 3.0L Cannula 06/02 2200 72 93 06/02 2044 66 190/56 06/02 2044 66 190/56 06/02 1835 98 Nasal 4.0L Cannula 06/02 1805 68 194/70 06/02 1634 68 206/78 06/02 1633 68 206/78 06/02 1537 63 220/84 06/02 1533 63 220/84 06/02 1527 63 220/84 06/02 1452 98.0 06/02 1352 60 244/96 06/02 1330 61 96 06/02 1146 65 210/90 06/02 1107 65 210/90 06/02 0954 60 208/100 06/02 0952 60 208/100 06/02 0952 60 208/100 06/02 0952 60 208/100 06/02 0952 60 208/100 Intake & Output 06/03 1600 06/03 0800 06/03 0000 Intake Total 105 851 Output Total 700 Balance -595 851 Intake, IV 5 121 Intake, Oral 100 730 Number 0 1 Bowel Movements Output, Urine 700 Patient 188 lb Weight Weight Bed scale Measurement Method Physical Exam General Appearance: Alert, Oriented X3, Cooperative, No Acute Distress Skin: No Rashes, No Breakdown, No Significant Lesion Neck: No JVD, No thryomegaly Lymphatic: Axillary nl, Cervical nl Cardiovascular: Normal S1, Normal S2, No Murmurs Lungs: bibasilar coarse crackles more prominent on the right, no wheezing Abdomen: Soft, No Tenderness Neurological: Normal Speech, Strength at 5/5 X4 Ext, Normal Tone Extremities: No Clubbing, No Edema, Normal Pulses Current Medications: Current Medications Sig/Larissa Start time Last Medication Dose Route Stop Time Status Admin Acetaminophen 650 MG .STK-MED ONE 06/02 1355 DC PO 06/02 1356 Acetaminophen 650 MG Q6P PRN 05/27 1245 AC 05/28 PO 0910 Acetaminophen 1,000 MG Q6P PRN 05/27 1245 AC 06/02 IV 2046 Albuterol Sulfate 3 ML BID 05/27 2200 AC 06/03 INH 0845 Amlodipine Besylate 10 MG DAILY 06/02 1000 AC 06/03 PO 0903 Aspirin Buffered 81 MG QPM 05/27 2200 AC 06/02 PO 2044 Atorvastatin Calcium 20 MG DAILY 05/27 1216 AC 06/03 PO 0903 Budesonide/ 2 PUF DAILY 05/27 1213 AC 06/03 Formoterol Fumarate INH 0904 Carvedilol 25 MG BID 05/27 1211 AC 06/03 PO 0904 Cholecalciferol 1,000 IU DAILY 05/28 1000 AC 06/03 PO 0903 Duloxetine HCl 60 MG DAILY 05/28 1000 AC 06/03 PO 0903 Enalaprilat 1.25 MG ONCE ONE 06/02 1445 DC 06/02 IV 06/02 1446 1533 Enalaprilat 1.25 MG ONCE ONE 06/02 1115 DC 06/02 IV 06/02 1116 1146 Ferrous Sulfate 325 MG DAILY 05/28 1000 AC 06/03 PO 0903 Fish Oil 1,050 MG DAILY 05/28 1000 AC 06/03 PO 0904 Furosemide 40 MG 7:30 AM, & 4:30 PM 06/03 0730 AC 06/03 IV 06/03 1631 0808 Furosemide 40 MG ONCE ONE 06/02 1500 DC 06/02 IV 06/02 1501 1443 Guaifenesin 600 MG Q12 05/28 1000 AC 06/03 PO 0903 Guaifenesin/ 10 ML Q6P PRN 05/29 0615 AC 05/29 Dextromethorphan PO 2149 Heparin Sodium 5,000 UNIT Q8 06/02 0853 AC 06/03 (Porcine) SC 0558 Hydralazine HCl 20 MG .STK-MED ONE 06/02 1520 DC IM 06/02 1521 Hydralazine HCl 100 MG TID 05/27 1213 AC 06/03 PO 0904 Insulin Aspart 0 TIDAC 05/28 1200 AC 06/03 SC 0808 Insulin Detemir 25 UNITS BID 06/02 1000 AC 06/03 SC 0808 Isosorbide 120 MG DAILY 06/01 1000 AC 06/03 Mononitrate PO 0904 Levothyroxine Sodium 0.125 MG DAILY AC 05/27 1215 AC 06/03 PO 0557 Losartan Potassium 50 MG DAILY 06/03 1000 DC 06/03 PO 0903 Losartan Potassium 100 MG DAILY 06/03 1000 UNVr PO Losartan Potassium 50 MG ONCE ONE 06/02 1530 DC 06/02 PO 06/02 1531 1634 Morphine Sulfate 4 MG Q4P PRN 05/27 1245 AC IV Oseltamivir Phosphate 30 MG DAILY 05/29 1000 DC 06/01 PO 06/02 0959 0919 Prednisone 40 MG DAILY 06/03 1000 AC 06/03 PO 06/17 0959 0904 Prednisone 40 MG DAILY 06/02 1000 DC 06/02 PO 0953 Senna/Docusate Sodium 2 TAB AT BEDTIME 05/27 2200 AC 06/01 PO 2131 Last 24 Hrs of Lab/Jose Alejandro Results Last 24 Hrs of Labs/Mics: Laboratory Tests 06/03/17 0710: Anion Gap 8, Estimated GFR 28 L, BUN/Creatinine Ratio 47.8 H Lines/Diet/Fluids Fluids/Infusions: none Catheters/Tubes: ferguson Ferguson Still Needed? Yes Restraints: none Assessment/Plan Assessment: The patient is a 71 year old female with an extensive past history including significant obstructive sleep apnea on nocturnal CPAP, HTN, HLD, Insulin dependent DM, chronic renal insufficiency, CHF, anemia, COPD, spinal stenosis s/ p spinal stimulator with chronic pain. Active Problem list 1. Acute on chronic hypoxic respiratory failure secondary flu B. on and/or fluid over load and pulmonary congestion secondary to STEVE in thesetiing of influenza virus infection (treated) 3. Acute on chronic kidney disease stage III, Cr 1.8 from 1.9 4. type II NM: Continue her antianginal and antiischemia medication ( statins, nitrate, B.blockers). 5. Hypertension: resume her home meds 6. Hx of type II DM and uncontrolled BS: FS are much better controlled Plan - watch off Abx -lasix dose; 40 mg IV BID daily ; no standing order -fluid restriction; maintaine Neg fluid balance -repeat CXR in the am - Po prednisosne on slow taper - We will continue aspirin, Imdur, Coreg, statin -uncontrolled HTN; Losartan dose was increased to 100 mg daily - Continue hydralazine and amlodipine ( increased to 10 mg) - Continue TRC nebs as needed - Try to taper down oxygen as tolerated and ambulate; target O2% >= 90 resting and >=88%, respectively. DVT prophylaxis - Heparin Code status - Full code Problem List: 1. Respiratory failure 2. Hypertensive urgency 3. Renal insufficiency 4. Respiratory distress 5. COPD (chronic obstructive pulmonary disease) Pain Ratin Pain Location: headache Pain Goal: Pain 4 or less Pain Plan: mild headache Tomorrow's Labs & Rationales: BEP DVT/Prophylaxis: mechanical, pharmacological Apergis Harrison GUTIERREZ 06/03/17 1101: Attending MD Review Statement Attending Statement Attending MD Statement: examined this patient, discuss w/resident/PA/STEWARD/STEWARDESS DECK, agreed w/resident/PA/STEWARD/STEWARDESS DECK, reviewed EMR data (avail) Attending Assessment/Plan: 71F PMH obstructive sleep apnea on nocturnal CPAP, HTN, HLD, Insulin dependent DM, chronic renal insufficiency, CHF, anemia, COPD, spinal stenosis s/p spinal stimulator with chronic pain admitted with acute hypoxemic respiratory failure secondary to influenza pneumonia and acute on chronic diastolic CHF, complicated by Type 2 myocardial infarction and acute on chronic kidney injury. Patient has no complaints today and feels well, though she still has orthopnea when lying flat. She is diuresing well and her lungs have bibasilar crackles. Repeat CXR today shows improved aeration of lungs from prior. V/Q shows low likelihood of PE. 1. Acute hypoxemic respiratory failure 2. Influenza pneumonia, bilateral lower lobe 3. Type 2 myocardial infarction 4. Acute on chronic kidney injury stage 3 5. SUSIE on CPAP Plan - Continue on telemetry - Continue Lasix 40mg IV BID - Increase Losartan to 100mg - Follow cardiology, nephrology, and pulmonary recommendations - Continue Prednisone - Nebulizer treatments - Heparin and antibiotics discontinued - Continue home medications - Completed Tamiflu course - DVT PPx
--- NOTE | 2017-06-03 07:34 | PN- Cardiology ---
Subjective Subjective: Feels better Objective Vital Signs and I&Os Vital Signs Date Time Temp Pulse Resp B/P B/P Pulse O2 O2 Flow FiO2 Mean Ox Delivery Rate 06/03 0648 98.2 62 22 168/90 96 BIPAP 06/03 0632 72 95 06/03 0347 88 95 06/03 0000 BIPAP 35% 06/02 2200 98.2 66 22 190/56 96 Nasal 3.0L Cannula 06/02 2200 72 93 06/02 2044 66 190/56 06/02 2044 66 190/56 06/02 1835 98 Nasal 4.0L Cannula 06/02 1805 68 194/70 06/02 1634 68 206/78 06/02 1633 68 206/78 06/02 1537 63 220/84 06/02 1533 63 220/84 06/02 1527 63 220/84 06/02 1452 98.0 06/02 1352 60 244/96 06/02 1330 61 96 06/02 1146 65 210/90 06/02 1107 65 210/90 06/02 0954 60 208/100 06/02 0952 60 208/100 06/02 0952 60 208/100 06/02 0952 60 208/100 06/02 0952 60 208/100 06/02 0808 92 Nasal 4.0L Cannula 06/02 0803 61 92 06/02 0800 92 Nasal 4.0L Cannula Intake & Output 06/03 0800 06/03 0000 06/02 1600 06/02 0800 06/02 0000 06/01 1600 Intake Total 318 785 1345 200 200 918 Output Total 700 1150 700 700 Balance -595 851 -105 -500 -500 918 Intake, IV 5 121 145 438 Intake, Oral 100 730 900 200 200 480 Number 0 1 1 Bowel Movements Output, Urine 700 1150 700 700 Patient 191 lb 188 lb Weight Weight Bed scale Measurement Method Physical Exam: HEENT-PERRLA Neck JVP normal, no bruits Lungs few bibasilar rhonchi Heart-S1S2 regular Abdomen-soft, not tender, BS+ Extr-no edema, 2+ pulses Neuro-non focal Current Medications: Current Medications Sig/Larissa Start time Last Medication Dose Route Stop Time Status Admin Acetaminophen 650 MG .STK-MED ONE 06/02 1355 DC PO 06/02 1356 Acetaminophen 650 MG Q6P PRN 05/27 1245 AC 05/28 PO 0910 Acetaminophen 1,000 MG Q6P PRN 05/27 1245 AC 06/02 IV 2046 Albuterol Sulfate 3 ML BID 05/27 2200 AC 06/02 INH 0808 Amlodipine Besylate 10 MG DAILY 06/02 1000 AC 06/02 PO 0954 Aspirin Buffered 81 MG QPM 05/27 2200 AC 06/02 PO 2044 Atorvastatin Calcium 20 MG DAILY 05/27 1216 AC 06/02 PO 0952 Budesonide/ 2 PUF DAILY 05/27 1213 AC 06/02 Formoterol Fumarate INH 0953 Carvedilol 25 MG BID 05/27 1211 AC 06/02 PO 2044 Cholecalciferol 1,000 IU DAILY 05/28 1000 AC 06/02 PO 0953 Duloxetine HCl 60 MG DAILY 05/28 1000 AC 06/02 PO 0952 Enalaprilat 1.25 MG ONCE ONE 06/02 1445 DC 06/02 IV 06/02 1446 1533 Enalaprilat 1.25 MG ONCE ONE 06/02 1115 DC 06/02 IV 06/02 1116 1146 Ferrous Sulfate 325 MG DAILY 05/28 1000 AC 06/02 PO 0952 Fish Oil 1,050 MG DAILY 05/28 1000 AC 06/02 PO 0954 Furosemide 40 MG 7:30 AM, & 4:30 PM 06/03 0730 AC IV 06/03 1631 Furosemide 40 MG ONCE ONE 06/02 1500 DC 06/02 IV 06/02 1501 1443 Furosemide 40 MG 7:30 AM, & 4:30 PM 06/02 0730 DC 06/02 IV 0653 Guaifenesin 600 MG Q12 05/28 1000 AC 06/02 PO 2045 Guaifenesin/ 10 ML Q6P PRN 05/29 0615 AC 05/29 Dextromethorphan PO 2149 Heparin Sodium 5,000 UNIT Q8 06/02 0853 AC 06/03 (Porcine) SC 0558 Hydralazine HCl 20 MG .STK-MED ONE 06/02 1520 DC IM 06/02 1521 Hydralazine HCl 100 MG TID 05/27 1213 AC 06/02 PO 2044 Insulin Aspart 0 TIDAC 05/28 1200 AC 06/02 SC 1703 Insulin Detemir 25 UNITS BID 06/02 1000 AC 06/02 SC 2106 Insulin Detemir 20 UNITS BID 06/01 1000 DC 06/01 OR 213 Isosorbide 120 MG DAILY 06/01 1000 AC 06/02 Mononitrate PO 0952 Levothyroxine Sodium 0.125 MG DAILY AC 05/27 1215 AC 06/03 PO 0557 Losartan Potassium 50 MG DAILY 06/03 1000 AC PO Losartan Potassium 50 MG ONCE ONE 06/02 1530 DC 06/02 PO 06/02 1531 1634 Morphine Sulfate 4 MG Q4P PRN 05/27 1245 AC IV Oseltamivir Phosphate 30 MG DAILY 05/29 1000 DC 06/01 PO 06/02 0959 0919 Prednisone 40 MG DAILY 06/03 1000 AC PO 06/17 0959 Prednisone 40 MG DAILY 06/02 1000 DC 06/02 PO 0953 Senna/Docusate Sodium 2 TAB AT BEDTIME 05/270 AC 06/01 PO 2131 Results Last 48 Hrs of Labs/Mics: Laboratory Tests 06/03/17 0710: Sodium Pending, Potassium Pending, Chloride Pending, Carbon Dioxide Pending, Anion Gap Pending, BUN Pending, Creatinine Pending, BUN/Creatinine Ratio Pending 06/02/17 0645: Anion Gap 9, Estimated GFR 26 L, BUN/Creatinine Ratio 45.3 H, CBC w Diff NO MAN DIFF REQ, RBC 3.14 L, MCV 87.2, MCH 28.6, RDW 17.0 H, MPV 9.2, Gran % 82.5 H, Lymphocytes % 8.8 L, Monocytes % 8.6, Eosinophils % 0, Basophils % 0.1, Absolute Granulocytes 8.8 H, Absolute Lymphocytes 0.9 L, Absolute Monocytes 0.9 H, Absolute Eosinophils 0, Absolute Basophils 0, PUBS MCHC 32.8 L 06/01/17 1800: APTT Cancelled Assessment/Plan Assessment/Plan 71 year old female with h/o CAD, LCX stentx2 in 2013, HTN, dyslipidemia, DM, CRI , CHF (last cath in August 2016 revealing non obstructive CAD, increased LVEDP), anemia, COPD admitted with respiratory failure secondary to pneumonia/flu, ARF on CRI. She remains oxygen dependent. Blood pressure not well controlled. Component of HFpEF. Good response to iv Lasix. V/Q scan with low probability for PE. Uncontrolled hypertension yesterday Plan: Lasix 40 mg iv bid today monitor daily weights, renal function and BMP increase losartan to 100 mg qd OOB, PT Continue telemetry? Yes
--- NOTE | 2017-06-03 09:04 | ECHOCARDIOGRAM REPORT ---
JOSELYN DUARTE Age: 71 : 1945 Gender: F Exam Date: 06/01/2017 19:03 Exam Location: [facility] Ht (in): 58 Wt (lb): 192 BSA: 1.94 BP: 140 / 80 Ordering Physician: Georgie Rios MD Referring Physician: Marcio Mtz M.D. Technologist: Anna Marie Funez RDCS Room Number: 184 Indications: RESPIRATORY FAILURE Rhythm: Sinus Technical Quality: good FINDINGS Left Ventricle Normal left ventricular size, wall thickness and systolic function with no obvious regional wall motion abnormalities. Normal left ventricular diastolic filling pattern for age. The ejection fraction is visually estimated at 70%. Right Ventricle The right ventricle is normal in size and function. Right Atrium The right atrium is normal in size. Left Atrium The left atrium is moderately enlarged. The interatrial septum is intact. Mitral Valve The mitral valve demonstrates mild posterior annular calcification with normal function. There is mild to moderate mitral regurgitation. Aortic Valve Structurally normal aortic valve without significant sclerosis or stenosis. There is trace aortic regurgitation. Tricuspid Valve The tricuspid valve is normal in structure and function. There is mild to moderate tricuspid regurgitation. Pulmonary artery systolic pressure is severely elevated to 71mmHg. Pulmonic Valve Structurally normal pulmonic valve. There is trace to mild pulmonic regurgitation. Pericardium Normal pericardium without effusion. Left pleural effusion. Great Vessels Normal aortic root dimension. The aortic arch and great vessels are well seen and are normal. CONCLUSIONS 1. Normal EF of 70%. 2. Moderate left atrial enlargement. 3. Mild to moderate mitral regurgitation with mild posterior annular calcification. 4. Mild to moderate tricuspid regurgitation. 5. Trace aortic regurgitation. 6. Trace to mild pulmonic regurgitation. 7. Severe pulmonary hypertension. 8. Left pleural effusion. Manolo Thornton M.D. (Electronically Signed) Final Date: 03 June 2017 09:03 MEASUREMENTS (Male / Female) Normal Values 2D ECHO LV Diastolic Diameter PLAX 4.6 cm 4.2 - 5.9 / 3.9 - 5.3 cm LV Systolic Diameter PLAX 2.2 cm 2.1 - 4.0 cm LV Fractional Shortening PLAX 52.2 % 25 - 46 % LV Ejection Fraction 2D Teich 83.4 % IVS Diastolic Thickness 1.1 cm LVPW Diastolic Thickness 1.1 cm LV Relative Wall Thickness 0.5 RV Internal Dim ED PLAX 2.9 cm 1.9 - 3.8 cm LVOT Diameter 1.9 cm Aortic Root Diameter 2.7 cm LA Systolic Diameter LX 4.5 cm 3.0 - 4.0 / 2.7 - 3.8 cm LA Volume 62.0 cm 18 - 58 / 22 - 52 cm Ascending Aorta Diameter 3.4 cm DOPPLER AV Peak Velocity 197.0 cm/s AV Peak Gradient 15.5 mmHg AV Mean Velocity 132.0 cm/s AV Mean Gradient 8.0 mmHg AV Velocity Time Integral 46.6 cm LVOT Peak Velocity 144.0 cm/s LVOT Peak Gradient 8.3 mmHg LVOT Mean Velocity 101.0 cm/s LVOT Mean Gradient 5.0 mmHg LVOT Velocity Time Integral 34.8 cm LVOT Stroke Volume 98.7 cm AV Area Cont Eq vti 2.1 cm AV Area Cont Eq pk 2.1 cm MV Peak Velocity 174.0 cm/s MV Peak Gradient 12.1 mmHg MV Mean Velocity 85.7 cm/s MV Mean Gradient 4.0 mmHg Mitral E Point Velocity 171.0 cm/s Mitral A Point Velocity 106.0 cm/s Mitral E to A Ratio 1.6 MV PHT Velocity 179.0 cm/s MV Deceleration [place] 528.0 cm/s MV Pressure Half Time 101.7 ms MV Area PHT 2.2 cm MV Deceleration Time 194.0 ms TR Peak Velocity 405.0 cm/s TR Peak Gradient 65.6 mmHg Right Atrial Pressure 5.0 mmHg Pulmonary Artery Systolic Pressu 70.6 mmHg Right Ventricular Systolic Press 70.6 mmHg PV Peak Velocity 123.0 cm/s PV Peak Gradient 6.1 mmHg PV Mean Velocity 87.2 cm/s PV Mean Gradient 4.0 mmHg PV Velocity Time Integral 27.8 cm LV E' Lateral Velocity 9.0 cm/s Mitral E to LV E' Lateral Ratio 19.1 LV E' Septal Velocity 7.2 cm/s Mitral E to LV E' Septal Ratio 23.7
--- NOTE | 2017-06-03 10:09 | PN- Pulmonary ---
Subjective HPI/Critical Care Issues: The patient is awake and alert. She reports feeling significantly improved. She has less shortness of breath. She is no longer requiring BIPAP during the daytime. She continues on nocturnal BIPAP. She denies any cough or chest congestion. She has no fever or chills. Objective Current Medications: Current Medications Sig/Larissa Start time Last Medication Dose Route Stop Time Status Admin Acetaminophen 650 MG .STK-MED ONE 06/02 1355 DC PO 06/02 1356 Acetaminophen 650 MG Q6P PRN 05/27 1245 AC 05/28 PO 0910 Acetaminophen 1,000 MG Q6P PRN 05/27 1245 AC 06/02 IV 2046 Albuterol Sulfate 3 ML BID 05/27 2200 AC 06/03 INH 0845 Amlodipine Besylate 10 MG DAILY 06/02 1000 AC 06/03 PO 0903 Aspirin Buffered 81 MG QPM 05/27 2200 AC 06/02 PO 2044 Atorvastatin Calcium 20 MG DAILY 05/27 1216 AC 06/03 PO 0903 Budesonide/ 2 PUF DAILY 05/27 1213 AC 06/03 Formoterol Fumarate INH 0904 Carvedilol 25 MG BID 05/27 1211 AC 06/03 PO 0904 Cholecalciferol 1,000 IU DAILY 05/28 1000 AC 06/03 PO 0903 Duloxetine HCl 60 MG DAILY 05/28 1000 AC 06/03 PO 0903 Enalaprilat 1.25 MG ONCE ONE 06/02 1445 DC 06/02 IV 06/02 1446 1533 Enalaprilat 1.25 MG ONCE ONE 06/02 1115 DC 06/02 IV 06/02 1116 1146 Ferrous Sulfate 325 MG DAILY 05/28 1000 AC 06/03 PO 0903 Fish Oil 1,050 MG DAILY 05/28 1000 AC 06/03 PO 0904 Furosemide 40 MG 7:30 AM, & 4:30 PM 06/03 0730 AC 06/03 IV 06/03 1631 0808 Furosemide 40 MG ONCE ONE 06/02 1500 DC 06/02 IV 06/02 1501 1443 Guaifenesin 600 MG Q12 05/28 1000 AC 06/03 PO 0903 Guaifenesin/ 10 ML Q6P PRN 05/29 0615 AC 05/29 Dextromethorphan PO 2149 Heparin Sodium 5,000 UNIT Q8 06/02 0853 AC 06/03 (Porcine) SC 0558 Hydralazine HCl 20 MG .STK-MED ONE 06/02 1520 DC IM 06/02 1521 Hydralazine HCl 100 MG TID 05/27 1213 AC 06/03 PO 0904 Insulin Aspart 0 TIDAC 05/28 1200 AC 06/03 SC 0808 Insulin Detemir 25 UNITS BID 06/02 1000 AC 06/03 SC 0808 Isosorbide 120 MG DAILY 06/01 1000 AC 06/03 Mononitrate PO 0904 Levothyroxine Sodium 0.125 MG DAILY AC 05/27 1215 AC 06/03 PO 0557 Losartan Potassium 50 MG DAILY 06/03 1000 DC 06/03 PO 0903 Losartan Potassium 100 MG DAILY 06/03 1000 AC PO Losartan Potassium 50 MG ONCE ONE 06/02 1530 DC 06/02 PO 06/02 1531 1634 Morphine Sulfate 4 MG Q4P PRN 05/27 1245 AC IV Prednisone 40 MG DAILY 06/03 1000 AC 06/03 PO 06/17 0959 0904 Prednisone 40 MG DAILY 06/02 1000 DC 06/02 PO 0953 Senna/Docusate Sodium 2 TAB AT BEDTIME 05/27 2200 AC 06/01 PO 2131 Vital Signs & I&O Last 24 Hrs of Vitals and I&O: Vital Signs Date Time Temp Pulse Resp B/P B/P Pulse O2 O2 Flow FiO2 Mean Ox Delivery Rate 06/03 0904 70 180/90 06/03 0904 70 180/90 06/03 0904 70 180/90 06/03 0903 70 180/90 06/03 0903 70 180/90 06/03 0847 95 Nasal 4.0L Cannula 06/03 0648 98.2 62 22 168/90 96 BIPAP 06/03 0632 72 95 06/03 0347 88 95 06/03 0000 BIPAP 35% 06/02 2200 98.2 66 22 190/56 96 Nasal 3.0L Cannula 06/02 2200 72 93 06/02 2044 66 190/56 06/02 2044 66 190/56 06/02 1835 98 Nasal 4.0L Cannula 06/02 1805 68 194/70 06/02 1634 68 206/78 06/02 1633 68 206/78 06/02 1537 63 220/84 06/02 1533 63 220/84 06/02 1527 63 220/84 06/02 1452 98.0 06/02 1352 60 244/96 06/02 1330 61 96 06/02 1146 65 210/90 06/02 1107 65 Intake & Output 06/03 1600 06/03 0800 06/03 0000 Intake Total 105 851 Output Total 700 Balance -595 851 Intake, IV 5 121 Intake, Oral 100 730 Number 0 1 Bowel Movements Output, Urine 700 Patient 188 lb Weight Weight Bed scale Measurement Method Physical Exam General Appearance: no apparent distress, alert, awake, comfortable Head: atraumatic, normal appearance Eyes: Bilateral: PERRL. Neck: supple Respiratory: decreased breath sounds, crackles, rhonchi Cardiovascular: S1 and S2 heard Gastrointestinal: normal bowel sounds, soft, non-tender Extremities: no edema Skin: intact, normal color, warm/dry Results Last 24 Hrs of Lab Results: Laboratory Tests 06/03/17 0710: Anion Gap 8, Estimated GFR 28 L, BUN/Creatinine Ratio 47.8 H Last 24 Hrs of Micro Results: All cultures remain negative. Impression/Plan Impression/Plan Impression/Plan: 1. Multilobar pneumonia, respiratory failure, influenza swab positive. The patient has clinically improved with an improved oxygen requirement. She is no longer requiring BIPAP during the day. 2. Recurrent congestive heart failure, clinically improving on IV Lasix. 3. History of hypertension. 4. Chronic anemia without evidence of active bleeding. 5. Chronic kidney disease, stage III, secondary to hypertensive/diabetic nephrosclerosis. Diuretics were on hold due to worsening renal function. 6. History of obstructive sleep apnea, on nocturnal nasal CPAP. 7. History diabetes. 8. Hypothyroidism, on Synthroid. 9. History of asthma/COPD. Recommendations: * Monitor off antibiotics. * Continue BIPAP at night and during the day only as needed. * Taper oxygen for saturations greater than 92%. * Monitor oxygen saturations if able, and titrate supplemental O2 for a saturation greater than 88% with activity and greater than 92% at rest. * Continue Symbicort and albuterol. * Continue nebs/TRC. * Cardiology follow up recommendations noted. * Wean down steroids by 10 mg every 3 days. * Continue home medications as per primary medicine team. * Increase activity/out of bed to chair/PT. * DVT prophylaxis at all times. * Continue all supportive care.
[2017-06-03 14:31] VITALS: BP 180/74
--- NOTE | 2017-06-03 15:03 | Patient Discharge Instructions ---
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 Dumas w/in one week Please follow up w/ Dr. Preciado w/ in one week Diet Continue normal diet: No Recommended Diet: Diabetic, Heart Healthy, CKD Activity Full Activity/No Limits: Yes Activity Self Limited: Yes Additional ACTIVITY Info: PT recommended: Acute Coronary Syndrome Inclusion Criteria At DC or during hospital stay patient has or had the following: ACS DIAGNOSIS Yes Discharge Core Measures Meds if any: Prescribed or Continued at Discharge PARISH/ARB if EF <40% Yes Aspirin Yes Beta-Michael Yes Statin Yes Meds if any: NOT Prescribed or Continued at Discharge Congestive Heart Failure Inclusion Criteria At DC or during hospital stay patient has or had the following: CHF DIAGNOSIS Yes Discharge Core Measures Meds if any: Prescribed or Continued at Discharge Meds if any: NOT Prescribed or Continued at Discharge Cerebrovascular accident Inclusion Criteria At DC or during hospital stay patient has or had the following: CVA/TIA Diagnosis No Discharge Core Measures Meds if any: Prescribed or Continued at Discharge Meds if any: NOT Prescribed or Continued at Discharge Venous thromboembolism Inclusion Criteria VTE Diagnosis No VTE Type NONE VTE Confirmed by (Test) NONE Discharge Core Measures - Per Current guidelines, there needs to be overlap - treatment for the first 5 days of Warfarin therapy. - If discharged on Warfarin prior to 5 days of - overlap therapy, the patient will need to be - assessed for post discharge needs including - *Post discharge parental anticoagulation - *Warfarin and/or parental anticoagulation education - *Follow up date to check INR post discharge At least 5 days overlap therapy as Inpatient No Meds if any: Prescribed or Continued at Discharge Note: Overlap Therapy is Warfarin and Anticoagulant Meds if any: NOT Prescribed or Continued at Discharge
[2017-06-03] MEDS ORDERED: AMLODIPINE BESY10 M1 PO (15:07)
[2017-06-03] MEDS ORDERED: ISOSORBIDE MON120 M1 PO (15:07)
[2017-06-03] MEDS ORDERED: PREDNISONE10 M2 PO (15:09)
[2017-06-03 22:00] VITALS: BP 180/68
[2017-06-04 06:59] VITALS: BP 190/50
--- NOTE | 2017-06-04 07:29 | PN- Cardiology ---
Subjective Subjective: Breathing improved Objective Vital Signs and I&Os Vital Signs Date Time Temp Pulse Resp B/P B/P Pulse O2 O2 Flow FiO2 Mean Ox Delivery Rate 06/04 0659 64 190/50 06/04 0648 97.9 62 20 98 Nasal Cannula 06/04 0323 57 06/04 0021 67 98 06/04 0000 BIPAP 35% 06/03 2200 98.5 69 20 180/68 96 Nasal 3.0L Cannula 06/03 203 83 97 06/03 2028 69 180/68 06/03 2027 69 180/68 06/03 2016 96 Nasal 3.0L Cannula 06/03 1600 93 Nasal 3.0L Cannula 06/03 1538 64 184/64 06/03 1431 98.8 63 22 180/74 96 Nasal 3.0L Cannula 06/03 1204 64 164/80 06/03 1154 64 160/80 06/03 0904 70 180/90 06/03 0904 70 180/90 06/03 0904 70 180/90 06/03 0903 70 180/90 06/03 0903 70 180/90 06/03 0847 95 Nasal 4.0L Cannula 06/03 0800 98 Nasal 4.0L Cannula Intake & Output 06/04 0800 06/04 0000 06/03 1600 06/03 0800 06/03 0000 06/02 1600 Intake Total 200 205 515 195 630 6770 Output Total 600 750 334 841 5050 Balance -400 -545 -385 -595 851 -105 Intake, IV 5 35 5 121 145 Intake, Oral 200 200 480 100 730 900 Number 0 0 0 1 Bowel Movements Output, Urine 600 750 776 206 0506 Patient 188 lb Weight Weight Bed scale Measurement Method Physical Exam: HEENT-PERRLA Neck-JVP normal,no bruit Lungs-few bibasilar crackles, exsp rhonchi Abdomen-soft, not tender, BS+, no organomegaly Extr-no edema, 2+ pulses Neuro-non focal Current Medications: Current Medications Sig/Larissa Start time Last Medication Dose Route Stop Time Status Admin Acetaminophen 650 MG Q6P PRN 05/27 1245 AC 05/28 PO 0910 Acetaminophen 1,000 MG Q6P PRN 05/27 1245 AC 06/02 IV 2046 Albuterol Sulfate 3 ML BID 05/27 2200 AC 06/03 INH 2013 Amlodipine Besylate 10 MG DAILY 06/02 1000 AC 06/03 PO 0903 Aspirin Buffered 81 MG QPM 05/27 2200 AC 06/03 PO 2027 Atorvastatin Calcium 20 MG DAILY 05/27 1216 AC 06/03 PO 0903 Budesonide/ 2 PUF DAILY 05/27 1213 AC 06/03 Formoterol Fumarate INH 0904 Carvedilol 25 MG BID 05/27 1211 AC 06/03 PO 2027 Cholecalciferol 1,000 IU DAILY 05/28 1000 AC 06/03 PO 0903 Duloxetine HCl 60 MG DAILY 05/28 1000 AC 06/03 PO 0903 Ferrous Sulfate 325 MG DAILY 05/28 1000 AC 06/03 PO 0903 Fish Oil 1,050 MG DAILY 05/28 1000 AC 06/03 PO 0904 Furosemide 40 MG 7:30 AM, & 4:30 PM 06/03 0730 DC 06/03 IV 06/03 1631 1537 Guaifenesin 600 MG Q12 05/28 1000 AC 06/03 PO 2027 Guaifenesin/ 10 ML Q6P PRN 05/29 0615 AC 05/29 Dextromethorphan PO 2149 Heparin Sodium 5,000 UNIT Q8 06/02 0853 AC 06/04 (Porcine) SC 0429 Hydralazine HCl 100 MG TID 05/27 1213 AC 06/03 PO 2026 Insulin Aspart 0 TIDAC 05/28 1200 AC 06/03 LA 1705 Insulin Detemir 25 UNITS BID 06/02 1000 AC 06/03 LA 2102 Isosorbide 120 MG DAILY 06/01 1000 AC 06/03 Mononitrate PO 0904 Levothyroxine Sodium 0.125 MG DAILY AC 05/27 1215 AC 06/04 PO 0602 Losartan Potassium 50 MG ONCE ONE 06/03 1115 DC 06/03 PO 06/03 1116 1154 Losartan Potassium 50 MG DAILY 06/03 1000 DC 06/03 PO 0903 Losartan Potassium 100 MG DAILY 06/03 1000 AC PO Morphine Sulfate 4 MG Q4P PRN 05/27 1245 DC IV Prednisone 40 MG DAILY 06/03 1000 AC 06/03 PO 06/17 0959 0904 Senna/Docusate Sodium 2 TAB AT BEDTIME 05/27 2200 AC 06/01 PO 2131 Results Last 48 Hrs of Labs/Mics: Laboratory Tests 06/04/17 0645: Sodium Pending, Potassium Pending, Chloride Pending, Carbon Dioxide Pending, Anion Gap Pending, BUN Pending, Creatinine Pending, BUN/Creatinine Ratio Pending 06/03/17 0710: Anion Gap 8, Estimated GFR 28 L, BUN/Creatinine Ratio 47.8 H Assessment/Plan Assessment/Plan 71 year old female with h/o CAD, LCX stentx2 in 2013, HTN, dyslipidemia, DM, CRI , CHF (last cath in August 2016 revealing non obstructive CAD, increased LVEDP), anemia, COPD admitted with respiratory failure secondary to pneumonia/flu, ARF on CRI. She remains oxygen dependent. Blood pressure not well controlled. Component of HFpEF. Good response to iv Lasix. Creatinine trending down V/Q scan with low probability for PE. BP slightly better Plan: Lasix 40 mg iv bid today, change to bumetanide 2 mg po qd tomorrow monitor daily weights, renal function and BMP taper oxygen OOB, PT Continue telemetry? Yes
--- NOTE | 2017-06-04 10:05 | PN- Housestaff ---
Wanda Solano 06/04/17 1005: Subjective Follow-up For: acute on chronic CHF Acute on Chronic CKD Complaints: shortness of breath, headache Tele-Events Since Last Visit: 3 runs of [employer] this a.m. Subjective: Patient was visited and examined this morning. No incident overnight except for slight agitation. her reports minor/subtle confusion. VSS. Fluid balance -500 + Tovar catheter Review of Systems Constitutional: Reports: no symptoms. Cardiovascular: Reports: see HPI, edema, peripheral edema. Denies: chest pain, orthopena, palpitations. Respiratory: Reports: short of breath. Denies: cough. Gastrointestinal: Reports: no symptoms. Genitourinary: Reports: no symptoms. Objective Last 24 Hrs of Vital Signs/I&O Vital Signs Date Time Temp Pulse Resp B/P B/P Pulse O2 O2 Flow FiO2 Mean Ox Delivery Rate 06/04 0915 70 180/90 06/04 0915 70 180/90 06/04 0915 70 180/90 06/04 0914 70 180/90 06/04 0913 70 180/90 06/04 0846 94 Nasal 3.0L Cannula 06/04 0800 94 Nasal 3.0L Cannula 06/04 0659 64 190/50 06/04 0648 97.9 62 20 98 Nasal Cannula 06/04 0323 57 06/04 0021 67 98 06/04 0000 BIPAP 35% 06/03 2200 98.5 69 20 180/68 96 Nasal 3.0L Cannula 06/03 2035 83 97 06/03 2028 69 180/68 06/037 69 180/68 06/03 2016 96 Nasal 3.0L Cannula 06/03 1600 93 Nasal 3.0L Cannula 06/03 1538 64 184/64 06/03 1431 98.8 63 22 180/74 96 Nasal 3.0L Cannula 06/03 1204 64 164/80 06/03 1154 64 160/80 Intake & Output 06/04 1600 06/04 0800 06/04 0000 Intake Total 200 205 Output Total 600 750 Balance -400 -545 Intake, IV 5 Intake, Oral 200 200 Number 0 0 Bowel Movements Output, Urine 600 750 Patient 190 lb Weight Weight Bed scale Measurement Method Physical Exam General Appearance: Alert, Oriented X3, Cooperative, Mild Distress HEENT: PERRLA, EOMI, Mucous Membr. moist/pink Neck: No JVD Cardiovascular: Normal S1, Normal S2, No Murmurs Lungs: Clear to Auscultation Abdomen: Soft Current Medications: Current Medications Sig/Larissa Start time Last Medication Dose Route Stop Time Status Admin Acetaminophen 650 MG Q6P PRN 05/27 1245 AC 05/28 PO 0910 Acetaminophen 1,000 MG Q6P PRN 05/27 1245 AC 06/02 IV 2046 Albuterol Sulfate 3 ML BID 05/27 2200 AC 06/04 INH 0845 Amlodipine Besylate 10 MG DAILY 06/02 1000 AC 06/04 PO 0915 Aspirin Buffered 81 MG QPM 05/27 2200 AC 06/03 PO 2028 Atorvastatin Calcium 20 MG DAILY 05/27 1216 AC 06/04 PO 0915 Budesonide/ 2 PUF DAILY 05/27 1213 AC 06/04 Formoterol Fumarate INH 0916 Bumetanide 1 MG 0900,1200 06/05 0900 AC PO Bumetanide 1 MG .[9000, 1200] 06/04 1015 DC PO Carvedilol 25 MG BID 05/27 1211 AC 06/04 PO 0915 Cholecalciferol 1,000 IU DAILY 05/28 1000 AC 06/04 PO 0915 Duloxetine HCl 60 MG DAILY 05/28 1000 AC 06/04 PO 0915 Ferrous Sulfate 325 MG DAILY 05/28 1000 AC 06/04 PO 0915 Fish Oil 1,050 MG DAILY 05/28 1000 AC 06/04 PO 0912 Furosemide 40 MG 1000,1600 06/04 1600 AC IV 06/04 1601 Furosemide 40 MG .[1000, 1600] 06/04 1015 DC 06/04 IV 1051 Furosemide 40 MG 7:30 AM, & 4:30 PM 06/03 0730 DC 06/03 IV 06/03 1631 1537 Guaifenesin 600 MG Q12 05/28 1000 AC 06/04 PO 0915 Guaifenesin/ 10 ML Q6P PRN 05/29 0615 AC 05/29 Dextromethorphan PO 2149 Heparin Sodium 5,000 UNIT Q8 06/02 0853 AC 06/04 (Porcine) SC 0429 Hydralazine HCl 100 MG TID 05/27 1213 AC 06/04 PO 0914 Insulin Aspart 0 TIDAC 05/28 1200 AC 06/03 SC 1705 Insulin Detemir 25 UNITS BID 06/02 1000 AC 06/04 SC 0912 Isosorbide 120 MG DAILY 06/01 1000 AC 06/04 Mononitrate PO 0915 Levothyroxine Sodium 0.125 MG DAILY AC 05/27 1215 AC 06/04 PO 0602 Losartan Potassium 100 MG DAILY 06/03 1000 AC 06/04 PO 0913 Morphine Sulfate 4 MG Q4P PRN 05/27 1245 DC IV Prednisone 40 MG DAILY 06/03 1000 AC 06/04 PO 06/17 0959 0915 Senna/Docusate Sodium 2 TAB AT BEDTIME 05/270 AC 06/01 PO 2131 Last 24 Hrs of Lab/Jose Alejandro Results Last 24 Hrs of Labs/Mics: Laboratory Tests 06/04/17 0645: Anion Gap 10, Estimated GFR 23 L, BUN/Creatinine Ratio 38.6 H Lines/Diet/Fluids Tovar Still Needed? No Assessment/Plan Assessment: The patient is a 71 year old female with an extensive past history including significant obstructive sleep apnea on nocturnal CPAP, HTN, HLD, Insulin dependent DM, chronic renal insufficiency, CHF, anemia, COPD, spinal stenosis s/ p spinal stimulator with chronic pain. Active Problem list 1. Acute on chronic hypoxic respiratory failure; ambulatory desturation probably in the setting of acute illness and prolonged immobility 3. Acute on chronic kidney disease stage III, Cr 1.8 from 1.9>> 2.1 4. type II [place]: Continue her antianginal and antiischemia medication ( statins, nitrate, B.blockers). 5. Hypertension: resume her home meds 6. Hx of type II DM and uncontrolled BS: FS are much better controlled Plan - watch off Abx -lasix dose; 40 mg IV once - start Bumetanide 1 mg po BID -fluid restriction; maintaine Neg fluid balance - Po prednisosne; slow taper -continue aspirin, Imdur 120 mg , Coreg, statin -uncontrolled HTN; Losartan dose was increased to 100 mg daily - Continue hydralazine and amlodipine ( increased to 10 mg) - Continue TRC nebs as needed - SUSIE on CPAP; please try trial of her own CPAP tonight; target O2 sat% >90% - Taper down to 2 lit of O2 N/C target O2 sat> 90% - Desaturated to < 88% on ambulation on O2; recommended rehabilitation center for pulmonary rehab. - Ready to be discharged to SNF for mainly pulmonary rehab DVT prophylaxis - Heparin Code status - Full code Problem List: 1. Asthma 2. Diabetes mellitus 3. History of - hypertension 4. Hyperlipidemia 5. Hypothyroidism 6. METABOLIC SYNDROME 7. Obesity 8. Wound infection 9. DVT prophylaxis 10. Cellulitis 11. Pneumonia 12. SUSIE on CPAP 13. Acute on chronic kidney disease, stage 3 14. CHF (congestive heart failure) 15. Shingles 16. Acute kidney injury 17. Medication reaction 18. Altered mental status 19. Post herpetic neuralgia 20. Full code status 21. CHF (congestive heart failure) 22. Leg edema 23. CKD stage G3b/A1, GFR 30-44 and albumin creatinine ratio <30 mg/g 24. Hypocalcemia 25. Chest heaviness 26. Osteoarthritis 27. Hyponatremia 28. Hyperkalemia 29. Chronic kidney disease 30. Diabetes 31. Hypothyroidism 32. COPD exacerbation 33. Hypoxia 34. Orthostatic hypotension 35. Near syncope 36. Hypoglycemia 37. Adverse drug effect 38. Acute on chronic congestive heart failure 39. Pneumonia 40. Anemia 41. Depression 42. Acute prerenal azotemia 43. Fever 44. COPD (chronic obstructive pulmonary disease) 45. Respiratory distress 46. Pulmonary infiltrates 47. Renal insufficiency 48. Hypertensive urgency 49. Respiratory failure Pain Ratin Pain Location: back Pain Goal: Pain 4 or less Pain Plan: pain pathway Tomorrow's Labs & Rationales: BEP Discharge Plan Anticipated Discharge (Day): tomorrow Harrison Michelle MD 06/04/17 1250: Attending MD Review Statement Attending Statement Attending MD Statement: examined this patient, discuss w/resident/PA/GENETIC PHYSICIAN, agreed w/resident/PA/GENETIC PHYSICIAN, reviewed EMR data (avail) Attending Assessment/Plan: 71F PMH obstructive sleep apnea on nocturnal CPAP, HTN, HLD, Insulin dependent DM, chronic renal insufficiency, CHF, anemia, COPD, spinal stenosis s/p spinal stimulator with chronic pain admitted with acute hypoxemic respiratory failure secondary to influenza pneumonia and acute on chronic diastolic CHF, complicated by Type 2 myocardial infarction and acute on chronic kidney injury. Significant improvement, patient feels much better and is no longer SOB. Her creatinine has increased slightly to 2.1. She appears euvolemic. 1. Acute hypoxemic respiratory failure 2. Influenza pneumonia, bilateral lower lobe 3. Type 2 myocardial infarction 4. Acute on chronic kidney injury stage 3 5. SUSIE on CPAP Plan - Stable for discharge home today or tomorrow pending cardiology and nephrology recommendations - Hold Lasix today, will restart PO Bumex tomorrow - Increase Losartan to 100mg - Follow cardiology, nephrology, and pulmonary recommendations - Continue Prednisone - Nebulizer treatments - Heparin and antibiotics discontinued - Continue home medications - Completed Tamiflu course - DVT PPx
--- NOTE | 2017-06-04 10:32 | PN- Nephrology ---
Assessment/Plan Assessment: 1. Stage III CKD - suspected to be diabetic nephrosclerosis and diabetes 2. STEVE - renal function is returning close to her previous baseline. 3.HTN - BP above goal. Given that her SCr is back to baseline, Should hopefully improve with diuresis as well. 4. Volume status by weights, she reports she is 181 -189 while she is here. Her weight, at home, was 181. When she saw Michelet Mitchell MD it was 175 pounds. This may represent not only fluid accumulation from her current illness but perhaps some real body mass weight gain. Suggestion: 1. Would continue with furosemide 2. Strict I's and O's and daily weights 3. Would change diet 2 g sodium. Subjective Subjective: Patient seen. She feels better. Breathing okay today. Objective Vital Signs and I&Os Vital Signs Date Time Temp Pulse Resp B/P B/P Pulse O2 O2 Flow FiO2 Mean Ox Delivery Rate 06/04 0915 70 180/90 06/04 0915 70 180/90 06/04 0915 70 180/90 06/04 0914 70 180/90 06/04 0913 70 180/90 06/04 0846 94 Nasal 3.0L Cannula 06/04 0659 64 190/50 06/04 0648 97.9 62 20 98 Nasal Cannula 06/04 0323 57 06/04 0021 67 98 06/04 0000 BIPAP 35% 06/03 2200 98.5 69 20 180/68 96 Nasal 3.0L Cannula 06/03 2035 83 97 06/03 2028 69 180/68 06/03 2027 69 180/68 06/03 2016 96 Nasal 3.0L Cannula 06/03 1600 93 Nasal 3.0L Cannula 06/03 1538 64 184/64 06/03 1431 98.8 63 22 180/74 96 Nasal 3.0L Cannula 06/03 1204 64 164/80 06/03 1154 64 160/80 Intake & Output 06/04 1600 06/04 0400 06/03 1600 06/03 0400 06/02 1600 06/02 0400 Intake Total 200 205 031 854 3529 200 Output Total 027 981 9727 1850 700 Balance -400 -502 -980 851 -157 -500 Intake, IV 5 40 121 145 Intake, Oral 200 200 247 702 2934 200 Number 0 0 0 1 Bowel Movements Output, Urine 557 015 9613 1850 700 Patient 188 lb 191 lb Weight Weight Bed scale Bed scale Measurement Method Physical Exam General Appearance: well developed/nourished, no apparent distress, alert, awake , comfortable, obese Head: atraumatic Ears, Nose, Throat: hearing grossly normal Neck: normal inspection, supple, full range of motion, trachea mid line Respiratory: lungs clear Cardiovascular: regular rate/rhythm, edema Abdomen: normal bowel sounds, soft, non-tender Back: normal inspection Extremities: normal inspection, normal capillary refill, no edema Current Medications: Current Medications Sig/Larissa Start time Last Medication Dose Route Stop Time Status Admin Acetaminophen 650 MG Q6P PRN 05/27 1245 AC 05/28 PO 0910 Acetaminophen 1,000 MG Q6P PRN 05/27 1245 AC 06/02 IV 2046 Albuterol Sulfate 3 ML BID 05/27 2200 AC 06/04 INH 0845 Amlodipine Besylate 10 MG DAILY 06/02 1000 AC 06/04 PO 0915 Aspirin Buffered 81 MG QPM 05/27 2200 AC 06/03 PO 2028 Atorvastatin Calcium 20 MG DAILY 05/27 1216 AC 06/04 PO 0915 Budesonide/ 2 PUF DAILY 05/27 1213 AC 06/04 Formoterol Fumarate INH 0916 Bumetanide 1 MG .[9000, 1200] 06/04 1015 UNV PO Carvedilol 25 MG BID 05/27 1211 AC 06/04 PO 0915 Cholecalciferol 1,000 IU DAILY 05/28 1000 AC 06/04 PO 0915 Duloxetine HCl 60 MG DAILY 05/28 1000 AC 06/04 PO 0915 Ferrous Sulfate 325 MG DAILY 05/28 1000 AC 06/04 PO 0915 Fish Oil 1,050 MG DAILY 05/28 1000 AC 06/04 PO 0912 Furosemide 40 MG .[1000, 1600] 06/04 1015 UNV IV Furosemide 40 MG 7:30 AM, & 4:30 PM 06/03 0730 DC 06/03 IV 06/03 1631 1537 Guaifenesin 600 MG Q12 05/28 1000 AC 06/04 PO 0915 Guaifenesin/ 10 ML Q6P PRN 05/29 0615 AC 05/29 Dextromethorphan PO 2149 Heparin Sodium 5,000 UNIT Q8 06/02 0853 AC 06/04 (Porcine) SC 0429 Hydralazine HCl 100 MG TID 05/27 1213 AC 06/04 PO 0914 Insulin Aspart 0 TIDAC 05/28 1200 AC 06/03 SC 1705 Insulin Detemir 25 UNITS BID 06/02 1000 AC 06/04 SC 0912 Isosorbide 120 MG DAILY 06/01 1000 AC 06/04 Mononitrate PO 0915 Levothyroxine Sodium 0.125 MG DAILY AC 05/27 1215 AC 06/04 PO 0602 Losartan Potassium 50 MG ONCE ONE 06/03 1115 DC 06/03 PO 06/03 1116 1154 Losartan Potassium 100 MG DAILY 06/03 1000 AC 06/04 PO 0913 Morphine Sulfate 4 MG Q4P PRN 05/27 1245 DC IV Prednisone 40 MG DAILY 06/03 1000 AC 06/04 PO 06/17 0959 0915 Senna/Docusate Sodium 2 TAB AT BEDTIME 05/27 2200 AC 06/01 PO 2131 Results Pertinent Lab Results: Laboratory Tests 06/04 06/03 06/02 0645 0710 0645 Chemistry Sodium (137 - 145 mmol/L) 143 142 140 Potassium (3.5 - 5.1 mmol/L) 3.9 4.1 4.3 Chloride (98 - 107 mmol/L) 107 107 108 H Carbon Dioxide (22 - 30 mmol/L) 26 26 23 Anion Gap (5 - 16) 10 8 9 BUN (7 - 17 mg/dL) 81 H 86 H 86 H Creatinine (0.5 - 1.0 mg/dL) 2.1 H 1.8 H 1.9 H Estimated GFR (>60 ml/min) 23 L 28 L 26 L BUN/Creatinine Ratio (7 - 25 %) 38.6 H 47.8 H 45.3 H Hematology CBC w Diff NO MAN DIFF REQ WBC (4.8 - 10.8 /CUMM) 10.6 RBC (4.20 - 5.40 /CUMM) 3.14 L Hgb (12.0 - 16.0 G/DL) 9.0 L Hct (37 - 47 %) 27.4 L MCV (81.0 - 99.0 FL) 87.2 MCH (27.0 - 31.0 PG) 28.6 RDW (11.5 - 14.5 %) 17.0 H Plt Count (130 - 400 /CUMM) 193 MPV (7.4 - 10.4 FL) 9.2 Gran % (42.2 - 75.2 %) 82.5 H Lymphocytes % (20.5 - 51.1 %) 8.8 L Monocytes % (1.7 - 9.3 %) 8.6 Eosinophils % (0 - 5 %) 0 Basophils % (0.0 - 2.0 %) 0.1 Absolute Granulocytes (1.4 - 6.5 /CUMM) 8.8 H Absolute Lymphocytes (1.2 - 3.4 /CUMM) 0.9 L Absolute Monocytes (0.10 - 0.60 /CUMM) 0.9 H Absolute Eosinophils (0.0 - 0.7 /CUMM) 0 Absolute Basophils (0.0 - 0.2 /CUMM) 0 PUBS MCHC (33.0 - 37.0 G/DL) 32.8 L 06/01 1800 Coagulation APTT Cancelled
[2017-06-04 14:25] VITALS: BP 182/70
[2017-06-05] VITALS (7 sets, daily range): BP systolic 160–202; BP diastolic 68–104
--- NOTE | 2017-06-05 04:44 | PN- Housestaff ---
Subjective Follow-up For: acute hypoxic respiratory failure Complaints: no complaints Subjective: was examined improved no complains Review of Systems Constitutional: Reports: see HPI. EENTM: Reports: no symptoms. Cardiovascular: Reports: no symptoms. Respiratory: Reports: no symptoms. Gastrointestinal: Reports: no symptoms. Genitourinary: Reports: no symptoms. Musculoskeletal: Reports: see HPI. Objective Last 24 Hrs of Vital Signs/I&O Vital Signs Date Time Temp Pulse Resp B/P B/P Pulse O2 O2 Flow FiO2 Mean Ox Delivery Rate 06/07 1042 95 Nasal 1.5L Cannula 06/07 09 68 160/82 06/07 0901 68 160/82 06/07 0901 68 160/82 06/07 0900 68 160/82 06/07 09 68 160/82 06/07 0800 94 Nasal 2.0L Cannula 06/07 0719 97.8 56 20 160/82 99 06/07 0000 Nasal 2.0L Cannula 06/06 2304 98.9 65 20 174/70 98 Nasal 2.0L Cannula 06/06 2130 68 98 06/06 2050 65 174/70 06/06 205 65 174/70 06/06 1859 99 Nasal 2.0L Cannula 06/06 1551 62 184/82 06/06 1550 62 184/82 06/06 1439 98.7 63 20 162/60 97 Nasal 2.0L Cannula Intake & Output 06/07 1600 06/07 0800 06/07 0000 Intake Total 420 Output Total 350 400 Balance -350 20 Intake, Oral 420 Output, Urine 350 400 Patient 179 lb Weight Weight Bed scale Measurement Method Physical Exam General Appearance: Alert, Oriented X3, Cooperative, No Acute Distress HEENT: Atraumatic, PERRLA, EOMI, Mucous Membr. moist/pink Neck: Supple, No JVD Cardiovascular: Normal S1, Normal S2, No Murmurs, Gallops Lungs: Clear to Auscultation, Normal Air Movement Abdomen: Soft, No Tenderness, No Hepatospenomegaly Neurological: Normal Speech Extremities: No Clubbing, No Edema Vascular: Normal Pulses Assessment/Plan Assessment: The patient is a 71 year old female with an extensive past history including significant obstructive sleep apnea on nocturnal CPAP, HTN, HLD, Insulin dependent DM, chronic renal insufficiency, CHF, anemia, COPD, spinal stenosis s/ p spinal stimulator with chronic pain. Active Problem list 1. Acute on chronic hypoxic respiratory failure; ambulatory desturation probably in the setting of acute illness and prolonged immobility 3. Acute on chronic kidney disease stage III, Cr 1.8 from 1.9>> 2.1 4. type II [place]: Continue her antianginal and antiischemia medication ( statins, nitrate, B.blockers). 5. Hypertension: resume her home meds 6. Hx of type II DM and uncontrolled BS: FS are much better controlled Plan - start Bumetanide 1 mg po BID - Po prednisosne; slow taper -continue aspirin, Imdur 120 mg , Coreg, statin -uncontrolled HTN; Losartan dose was increased to 100 mg daily - add doxazosin 2 mg po bid - Continue hydralazine and amlodipine ( increased to 10 mg) - Continue TRC nebs as needed - SUSIE on CPAP; please try trial of her own CPAP tonight; target O2 sat% >90% - Taper down to 2 lit of O2 N/C target O2 sat> 90% - Desaturated to < 88% on ambulation on O2; recommended rehabilitation center for pulmonary rehab. - Ready to be discharged to SNF for mainly pulmonary rehab; insurance issues; case manage is working on discharge plan DVT prophylaxis - Heparin Code status - Full code Problem List: 1. CHF (congestive heart failure) 2. Acute on chronic kidney disease, stage 3 3. SUSIE on CPAP 4. Pneumonia 5. DVT prophylaxis Pain Ratin Pain Location: NA Pain Goal: Remain pain free Pain Plan: pain pathway Tomorrow's Labs & Rationales: bep Discharge Plan Discharge Disposition: STR/NH Stable for Discharge? Yes Anticipated Discharge (Day): unknown
--- NOTE | 2017-06-05 07:59 | PN- Cardiology ---
Subjective Subjective: Feels good, no new complaints Objective Vital Signs and I&Os Vital Signs Date Time Temp Pulse Resp B/P B/P Pulse O2 O2 Flow FiO2 Mean Ox Delivery Rate 06/05 0712 190/80 06/05 0652 98.6 68 20 202/104 94 Nasal Cannula 06/05 0639 78 190/80 06/05 0536 70 202/104 06/05 0349 93 BIPAP 1.5L 06/05 0048 160/78 06/05 0000 BIPAP 06/04 2148 178/84 06/04 2148 178/84 06/04 2145 76 94 06/04 1900 95 Nasal 1.5L Cannula 06/04 1652 184/72 06/04 1600 95 Nasal 3.0L Cannula 06/04 1425 98.2 66 20 182/70 96 Nasal 2.0L Cannula 06/04 1421 93 Nasal 2.0L Cannula 06/04 1228 Nasal 4.0L Cannula 06/04 0915 70 180/90 06/04 0915 70 180/90 06/04 0915 70 180/90 06/04 0914 70 180/90 06/04 0913 70 180/90 06/04 0846 94 Nasal 3.0L Cannula 06/04 0800 94 Nasal 3.0L Cannula Intake & Output 06/05 0800 06/05 0000 06/04 1600 06/04 0800 06/04 0000 06/03 1600 Intake Total 120 375 500 200 205 515 Output Total 350 450 650 600 750 900 Balance -230 -75 -150 -400 -545 -385 Intake, IV 5 35 Intake, Oral 120 375 500 200 200 480 Number 0 0 Bowel Movements Output, Urine 350 450 650 600 750 900 Patient 190 lb 188 lb Weight Weight Bed scale Bed scale Measurement Method Physical Exam: HEENT-PERRLA Neck-JVP normal,no bruit Lungs-bilateral exspiratory rhonchi Heart-S1S2 regular, no murmur Abdomen-soft, not tender, BS+, no organomegaly Extr-no edema, 2+ pulses Neuro-non focal Current Medications: Current Medications Sig/Larissa Start time Last Medication Dose Route Stop Time Status Admin Acetaminophen 650 MG Q6P PRN 05/27 1245 AC 05/28 PO 0910 Acetaminophen 1,000 MG Q6P PRN 05/27 1245 AC 06/02 IV 2046 Albuterol Sulfate 3 ML BID 05/27 2200 AC 06/04 INH 1900 Amlodipine Besylate 10 MG DAILY 06/02 1000 AC 06/05 PO 0639 Aspirin Buffered 81 MG QPM 05/27 2200 AC 06/04 PO 2148 Atorvastatin Calcium 20 MG DAILY 05/27 1216 AC 06/04 PO 0915 Budesonide/ 2 PUF DAILY 05/27 1213 AC 06/04 Formoterol Fumarate INH 0916 Bumetanide 1 MG 0900,1200 06/05 0900 AC PO Bumetanide 1 MG .[9000, 1200] 06/04 1015 DC PO Carvedilol 25 MG BID 05/27 1211 AC 06/04 PO 2148 Cholecalciferol 1,000 IU DAILY 05/28 1000 AC 06/04 PO 0915 Duloxetine HCl 60 MG DAILY 05/28 1000 AC 06/04 PO 0915 Ferrous Sulfate 325 MG DAILY 05/28 1000 AC 06/04 PO 0915 Fish Oil 1,050 MG DAILY 05/28 1000 AC 06/04 PO 0912 Furosemide 40 MG 1000,1600 06/04 1600 DC 06/04 IV 06/04 1601 1655 Furosemide 40 MG .[1000, 1600] 06/04 1015 DC 06/04 IV 1051 Guaifenesin 600 MG Q12 05/28 1000 AC 06/04 PO 2148 Guaifenesin/ 10 ML Q6P PRN 05/29 0615 AC 05/29 Dextromethorphan PO 2149 Heparin Sodium 5,000 UNIT Q8 06/02 0853 AC 06/05 (Porcine) SC 0524 Hydralazine HCl 100 MG TID 05/27 1213 AC 06/05 PO 0536 Insulin Aspart 0 TIDAC 05/28 1200 AC 06/04 SC 1702 Insulin Detemir 25 UNITS BID 06/02 1000 AC 06/04 SC 2149 Isosorbide 120 MG DAILY 06/01 1000 AC 06/04 Mononitrate PO 0915 Levothyroxine Sodium 0.125 MG DAILY AC 05/27 1215 AC 06/05 PO 0524 Losartan Potassium 100 MG DAILY 06/03 1000 AC 06/04 PO 0913 Prednisone 40 MG DAILY 06/03 1000 AC 06/04 PO 06/17 0959 0915 Senna/Docusate Sodium 2 TAB AT BEDTIME 05/270 AC 06/01 PO 2131 Results Last 48 Hrs of Labs/Mics: Laboratory Tests 06/04/17 0645: Anion Gap 10, Estimated GFR 23 L, BUN/Creatinine Ratio 38.6 H Assessment/Plan Assessment/Plan 71 year old female with h/o CAD, LCX stentx2 in 2013, HTN, dyslipidemia, DM, CRI , CHF (last cath in August 2016 revealing non obstructive CAD, increased LVEDP), anemia, COPD admitted with respiratory failure secondary to pneumonia/flu, ARF on CRI. She remains oxygen dependent. Blood pressure not well controlled. Component of HFpEF. Good response to iv Lasix. Creatinine trending down but increased yesterday. V/Q scan with low probability for PE. BP now again with uncontrolled HTN Plan: OK to use bumetanide 1 mg po qd check BMP add doxazosin 2 mg po bid Continue telemetry? Yes
--- NOTE | 2017-06-05 09:09 | PN- Housestaff ---
Subjective Follow-up For: chronic respiratory failure paln for discharge to rehab for pulmonaly rehab STEVE on CKD III B Unconcontrolled BP Hx of DM and uncontrolled BS Complaints: headache Tele-Events Since Last Visit: none Subjective: visited and examined today. Complains of mild headache and slightly worsening her breathing. Denies chest pain and palpitation and lightheadedness. - ferguson Fluid balance -300 VS: SBP 200 mmhg; received her morning hydralizine and bumethanide Review of Systems Constitutional: Reports: see HPI. Objective Last 24 Hrs of Vital Signs/I&O Vital Signs Date Time Temp Pulse Resp B/P B/P Pulse O2 O2 Flow FiO2 Mean Ox Delivery Rate 06/05 0808 200/90 93 Nasal 2.0L Cannula 06/05 0800 93 Nasal 2.0L Cannula 06/05 0712 190/80 06/05 0652 98.6 68 20 202/104 94 Nasal Cannula 06/05 0639 78 190/80 06/05 0536 70 202/104 06/05 0349 93 BIPAP 1.5L 06/05 0048 160/78 06/05 0000 BIPAP 06/04 2148 178/84 06/04 2148 178/84 06/04 2145 76 94 06/04 1900 95 Nasal 1.5L Cannula 06/04 1652 184/72 06/04 1600 95 Nasal 3.0L Cannula 06/04 1425 98.2 66 20 182/70 96 Nasal 2.0L Cannula 06/04 1421 93 Nasal 2.0L Cannula 06/04 1228 Nasal 4.0L Cannula 06/04 0915 70 180/90 06/04 0915 70 180/90 06/04 0915 70 180/90 06/04 0914 70 180/90 06/04 0913 70 180/90 Intake & Output 06/05 1600 06/05 0800 06/05 0000 Intake Total 120 375 Output Total 350 450 Balance -230 -75 Intake, Oral 120 375 Output, Urine 350 450 Physical Exam General Appearance: Alert, Oriented X3, Cooperative, No Acute Distress HEENT: PERRLA Neck: No JVD Cardiovascular: Normal S1, Normal S2, No Murmurs Lungs: Clear to Auscultation Abdomen: Soft Extremities: No Edema Current Medications: Current Medications Sig/Larissa Start time Last Medication Dose Route Stop Time Status Admin Acetaminophen 650 MG Q6P PRN 05/27 1245 AC 05/28 PO 0910 Acetaminophen 1,000 MG Q6P PRN 05/27 1245 AC 06/02 IV 2046 Albuterol Sulfate 3 ML BID 05/27 2200 AC 06/04 INH 1900 Amlodipine Besylate 10 MG ONCE ONE 06/05 0900 CAN PO 06/05 0901 Amlodipine Besylate 10 MG DAILY 06/02 1000 AC 06/05 PO 0639 Aspirin Buffered 81 MG QPM 05/27 2200 AC 06/04 PO 2148 Atorvastatin Calcium 20 MG DAILY 05/27 1216 AC 06/04 PO 0915 Budesonide/ 2 PUF DAILY 05/27 1213 AC 06/04 Formoterol Fumarate INH 0916 Bumetanide 1 MG 0900,1200 06/05 0900 AC 06/05 PO 0819 Bumetanide 1 MG .[9000, 1200] 06/04 1015 DC PO Carvedilol 25 MG BID 05/27 1211 AC 06/04 PO 2148 Cholecalciferol 1,000 IU DAILY 05/28 1000 AC 06/04 PO 0915 Doxazosin Mesylate 2 MG BID 06/05 1000 UNVr PO Duloxetine HCl 60 MG DAILY 05/28 1000 AC 06/04 PO 0915 Ferrous Sulfate 325 MG DAILY 05/28 1000 AC 06/04 PO 0915 Fish Oil 1,050 MG DAILY 05/28 1000 AC 06/04 PO 0912 Furosemide 40 MG 1000,1600 06/04 1600 DC 06/04 IV 06/04 1601 1655 Furosemide 40 MG .[1000, 1600] 06/04 1015 DC 06/04 IV 1051 Guaifenesin 600 MG Q12 05/28 1000 AC 06/04 PO 2148 Guaifenesin/ 10 ML Q6P PRN 05/29 0615 AC 05/29 Dextromethorphan PO 2149 Heparin Sodium 5,000 UNIT Q8 06/02 0853 AC 06/05 (Porcine) SC 0524 Hydralazine HCl 100 MG TID 05/27 1213 AC 06/05 PO 0536 Insulin Aspart 0 TIDAC 05/28 1200 AC 06/05 SC 0819 Insulin Detemir 25 UNITS BID 06/02 1000 AC 06/04 SC 2149 Isosorbide 120 MG DAILY 06/01 1000 AC 06/04 Mononitrate PO 0915 Levothyroxine Sodium 0.125 MG DAILY AC 05/27 1215 AC 06/05 PO 0524 Losartan Potassium 100 MG DAILY 06/03 1000 AC 06/04 PO 0913 Prednisone 40 MG DAILY 06/03 1000 AC 06/04 PO 06/17 0959 0915 Senna/Docusate Sodium 2 TAB AT BEDTIME 05/27 2200 AC 06/01 PO 2131 Lines/Diet/Fluids Ferguson Still Needed? No Assessment/Plan Assessment: The patient is a 71 year old female with an extensive past history including significant obstructive sleep apnea on nocturnal CPAP, HTN, HLD, Insulin dependent DM, chronic renal insufficiency, CHF, anemia, COPD, spinal stenosis s/ p spinal stimulator with chronic pain. Active Problem list 1. Acute on chronic hypoxic respiratory failure; ambulatory desturation probably in the setting of acute illness and prolonged immobility 3. Acute on chronic kidney disease stage III, Cr 1.8 from 1.9>> 2.1 4. type II [place]: Continue her antianginal and antiischemia medication ( statins, nitrate, B.blockers). 5. Hypertension: uncontrolled 6. Hx of type II DM and uncontrolled BS: FS are much better controlled Plan - watch off Abx - Bumetanide 1 mg po BID -liberate the fluid restriction to 1500 ml - Po prednisosne; slow taper -continue aspirin, Imdur 120 mg , Coreg, statin -uncontrolled HTN; Losartan dose was increased to 100 mg daily; doxazosin 2 mg po bid was added - Continue hydralazine and amlodipine - Continue TRC nebs as needed - SUSIE on CPAP; please try trial of her own CPAP tonight; target O2 sat% >90% - Taper down to 2 lit of O2 N/C target O2 sat> 90% - Desaturated to < 88% on ambulation on O2; recommended rehabilitation center for pulmonary rehab. - Ready to be discharged to [facility] for mainly pulmonary rehab; Insurance company did not approve d/c plan to [facility] for pulmonary rehab. DVT prophylaxis - Heparin Code status - Full code Problem List: 1. Diabetes mellitus 2. Obesity 3. DVT prophylaxis 4. SUSIE on CPAP 5. Acute on chronic kidney disease, stage 3 6. CHF (congestive heart failure) 7. CKD stage G3b/A1, GFR 30-44 and albumin creatinine ratio <30 mg/g 8. Respiratory failure 9. COPD (chronic obstructive pulmonary disease) 10. Hypertension Pain Ratin Pain Location: HPI Pain Goal: Pain 4 or less Pain Plan: pain pathway Tomorrow's Labs & Rationales: BEP Discharge Plan Discharge Disposition: STR/NH Anticipated Discharge (Day): unknown If Discharged Today/In 24 Hrs: W-10/discharge paper done, DC summary done, CMR done
--- NOTE | 2017-06-05 09:36 | PN- Housestaff ---
Rolan GUTIERREZ,Jhonatan 06/05/17 0936: Subjective Follow-up For: Unconcontrolled BP chronic respiratory failure STEVE on CKD III B Hx of DM and uncontrolled BS Complaints: no complaints Tele-Events Since Last Visit: Normal sinus rhythm, heart rate ranging from 68-73. Subjective: Patient followed by me today. She was resting comfortably in bed, did not have any active complaints, nursing staff noted high blood pressure (systolic and 200s) overnight. Patient denied any headache, weakness, blurring of vision, increased leg swelling. Review of Systems Constitutional: Reports: no symptoms. Objective Last 24 Hrs of Vital Signs/I&O Vital Signs Date Time Temp Pulse Resp B/P B/P Pulse O2 O2 Flow FiO2 Mean Ox Delivery Rate 06/05 0931 97 Nasal 2.0L Cannula 06/05 0859 68 200/90 06/05 0858 68 200/90 06/05 0808 200/90 93 Nasal 2.0L Cannula 06/05 0800 93 Nasal 2.0L Cannula 06/05 0712 190/80 06/05 0652 98.6 68 20 202/104 94 Nasal Cannula 06/05 0639 78 190/80 06/05 0536 70 202/104 06/05 0349 93 BIPAP 1.5L 06/05 0048 160/78 06/05 0000 BIPAP 06/04 2148 178/84 06/04 2148 178/84 06/04 2145 76 94 06/04 1900 95 Nasal 1.5L Cannula 06/04 1652 184/72 06/04 1600 95 Nasal 3.0L Cannula 06/04 1425 98.2 66 20 182/70 96 Nasal 2.0L Cannula 06/04 1421 93 Nasal 2.0L Cannula 06/04 1228 Nasal 4.0L Cannula Intake & Output 06/05 1600 06/05 0800 06/05 0000 Intake Total 120 375 Output Total 350 450 Balance -230 -75 Intake, Oral 120 375 Output, Urine 350 450 Physical Exam General Appearance: Alert, Oriented X3, Cooperative, No Acute Distress Other Physical Findings: HEENT: PERRLA Neck: No JVD Cardiovascular: Normal S1, Normal S2, No Murmurs Lungs: Clear to Auscultation Abdomen: Soft Extremities: No Edema Current Medications: Current Medications Sig/Larissa Start time Last Medication Dose Route Stop Time Status Admin Acetaminophen 650 MG Q6P PRN 05/27 1245 AC 05/28 PO 0910 Acetaminophen 1,000 MG Q6P PRN 05/27 1245 AC 06/02 IV 2046 Albuterol Sulfate 3 ML BID 05/27 2200 AC 06/05 INH 0929 Amlodipine Besylate 10 MG ONCE ONE 06/05 0900 CAN PO 06/05 0901 Amlodipine Besylate 10 MG DAILY 06/02 1000 AC 06/05 PO 0639 Aspirin Buffered 81 MG QPM 05/27 2200 AC 06/04 PO 2148 Atorvastatin Calcium 20 MG DAILY 05/27 1216 AC 06/05 PO 0859 Budesonide/ 2 PUF DAILY 05/27 1213 AC 06/05 Formoterol Fumarate INH 0900 Bumetanide 1 MG 0900,1200 06/05 0900 AC 06/05 PO 0819 Bumetanide 1 MG .[9000, 1200] 06/04 1015 DC PO Carvedilol 25 MG BID 05/27 1211 AC 06/05 PO 0859 Cholecalciferol 1,000 IU DAILY 05/28 1000 AC 06/05 PO 0859 Doxazosin Mesylate 2 MG BID 06/05 1000 AC PO Duloxetine HCl 60 MG DAILY 05/28 1000 AC 06/05 PO 0859 Ferrous Sulfate 325 MG DAILY 05/28 1000 AC 06/05 PO 0859 Fish Oil 1,050 MG DAILY 05/28 1000 AC 06/05 PO 0859 Furosemide 40 MG 1000,1600 06/04 1600 DC 06/04 IV 06/04 1601 1655 Furosemide 40 MG .[1000, 1600] 06/04 1015 DC 06/04 IV 1051 Guaifenesin 600 MG Q12 05/28 1000 AC 06/05 PO 0859 Guaifenesin/ 10 ML Q6P PRN 05/29 0615 AC 05/29 Dextromethorphan PO 2149 Heparin Sodium 5,000 UNIT Q8 06/02 0853 AC 06/05 (Porcine) SC 0524 Hydralazine HCl 100 MG TID 05/27 1213 AC 06/05 PO 0536 Insulin Aspart 0 TIDAC 05/28 1200 AC 06/05 SC 0819 Insulin Detemir 25 UNITS BID 06/02 1000 AC 06/05 SC 0859 Isosorbide 120 MG DAILY 06/01 1000 AC 06/04 Mononitrate PO 0915 Levothyroxine Sodium 0.125 MG DAILY AC 05/27 1215 AC 06/05 PO 0524 Losartan Potassium 100 MG DAILY 06/03 1000 AC 06/05 PO 0858 Prednisone 40 MG DAILY 06/03 1000 AC 06/05 PO 06/17 0959 0859 Senna/Docusate Sodium 2 TAB AT BEDTIME 05/27 2200 AC 06/01 PO 2131 Last 24 Hrs of Lab/Jose Alejandro Results Last 24 Hrs of Labs/Mics: Laboratory Tests 06/05/17 1212: Anion Gap 11, Estimated GFR 23 L, BUN/Creatinine Ratio 38.6 H Assessment/Plan Assessment: 71 year old female with an extensive past history including significant obstructive sleep apnea on nocturnal CPAP, HTN, HLD, Insulin dependent DM, chronic renal insufficiency, CHF, anemia, COPD, spinal stenosis s/p spinal stimulator with chronic pain. Active Problem list 1. Acute on chronic hypoxic respiratory failure; ambulatory desturation probably in the setting of acute illness and prolonged immobility 3. Acute on chronic kidney disease stage III, Cr 1.8 from 1.9>> 2.1 4. Type II [place]: Continue her antianginal and anti-ischemia medication ( statins, nitrate, B.blockers). 5. Hypertension: uncontrolled 6. Hx of type II DM and uncontrolled BS: FS are much better controlled Plan - continue to watch off Abx - Bumetanide 1 mg po BID - liberate the fluid restriction to 1500 ml - Po prednisosne; slow taper - continue aspirin, Imdur 120 mg , Coreg, statin - uncontrolled HTN; Losartan dose was increased to 100 mg daily; will keep her on same meds today to see effects of the meds that have just been changed. Cardiology input appreciated. Doxazocin added. - Continue hydralazine and amlodipine - Continue TRC nebs as needed - SUSIE on CPAP; trial of her own CPAP tonight; target O2 sat% >90% - O2 has been tapered at 1.5 L/min at rest via NC with target O2 sat> 90% - Desaturated to < 88% on ambulation on O2; recommended rehabilitation center for pulmonary rehab. - Ready to be discharged to [facility] for mainly pulmonary rehab ONCE HER BP IS UNDER CONTROL; Insurance company did not approve d/c plan to [facility] for pulmonary rehab. DVT prophylaxis - Heparin Code status - Full code Problem List: 1. Hypertension 2. Respiratory failure 3. Renal insufficiency Pain Ratin Pain Location: back Pain Goal: Pain 4 or less Pain Plan: as ordered, prn Tomorrow's Labs & Rationales: BEP Ty GUTIERREZ,Amir 06/05/17 1530: Attending MD Review Statement Attending Statement Attending MD Statement: examined this patient, discuss w/resident/PA/HEALTH PHYSICIST, agreed w/resident/PA/HEALTH PHYSICIST, discussed with family, reviewed EMR data (avail), discussed with nursing Attending Assessment/Plan: Ms. Lynn Weber is a 71 year old female with PMHx of CAD, LCX stentx2 in 2013 , HTN, dyslipidemia, DM, CRI, CHF (last cath in August 2016 revealing non obstructive CAD, increased LVEDP), anemia, COPD a/w respiratory failure secondary to pneumonia/flu, acute on chronic CHF, ARF on CRI. She has been evaluated by Cards. A/P: HTN: --BP elevated, appreciate Cards input -- cont to monitor lytes
--- NOTE | 2017-06-05 13:59 | PN- Pulmonary ---
Subjective HPI/Critical Care Issues: No acute events Feels ok Objective Current Medications: Current Medications Sig/Larissa Start time Last Medication Dose Route Stop Time Status Admin Acetaminophen 650 MG Q6P PRN 05/27 1245 AC 05/28 PO 0910 Acetaminophen 1,000 MG Q6P PRN 05/27 1245 AC 06/02 IV 2046 Albuterol Sulfate 3 ML BID 05/27 2200 AC 06/05 INH 0929 Amlodipine Besylate 10 MG ONCE ONE 06/05 0900 CAN PO 06/05 0901 Amlodipine Besylate 10 MG DAILY 06/02 1000 AC 06/05 PO 0639 Aspirin Buffered 81 MG QPM 05/27 2200 AC 06/04 PO 2148 Atorvastatin Calcium 20 MG DAILY 05/27 1216 AC 06/05 PO 0859 Budesonide/ 2 PUF DAILY 05/27 1213 AC 06/05 Formoterol Fumarate INH 0900 Bumetanide 1 MG 0900,1200 06/05 0900 AC 06/05 PO 1206 Carvedilol 25 MG BID 05/27 1211 AC 06/05 PO 0859 Cholecalciferol 1,000 IU DAILY 05/28 1000 AC 06/05 PO 0859 Doxazosin Mesylate 2 MG BID 06/05 1000 AC 06/05 PO 0946 Duloxetine HCl 60 MG DAILY 05/28 1000 AC 06/05 PO 0859 Ferrous Sulfate 325 MG DAILY 05/28 1000 AC 06/05 PO 0859 Fish Oil 1,050 MG DAILY 05/28 1000 AC 06/05 PO 0859 Furosemide 40 MG 1000,1600 06/04 1600 DC 06/04 IV 06/04 1601 1655 Guaifenesin 600 MG Q12 05/28 1000 AC 06/05 PO 0859 Guaifenesin/ 10 ML Q6P PRN 05/29 0615 AC 05/29 Dextromethorphan PO 2149 Heparin Sodium 5,000 UNIT Q8 06/02 0853 AC 06/05 (Porcine) SC 0524 Hydralazine HCl 100 MG TID 05/27 1213 AC 06/05 PO 0536 Insulin Aspart 0 TIDAC 05/28 1200 AC 06/05 SC 0819 Insulin Detemir 25 UNITS BID 06/02 1000 AC 06/05 SC 0859 Isosorbide 120 MG DAILY 06/01 1000 AC 06/05 Mononitrate PO 0946 Levothyroxine Sodium 0.125 MG DAILY AC 05/27 1215 AC 06/05 PO 0524 Losartan Potassium 100 MG DAILY 06/03 1000 AC 06/05 PO 0858 Prednisone 30 MG DAILY 06/03 1000 AC 06/05 PO 06/17 0959 0859 Senna/Docusate Sodium 2 TAB AT BEDTIME 05/27 2200 AC 06/01 PO 2131 Vital Signs & I&O Last 24 Hrs of Vitals and I&O: Vital Signs Date Time Temp Pulse Resp B/P B/P Pulse O2 O2 Flow FiO2 Mean Ox Delivery Rate 06/05 1035 62 180/68 06/05 0946 68 200/90 06/05 0931 97 Nasal 2.0L Cannula 06/05 0859 68 200/90 06/05 0858 68 200/90 06/05 0808 20090 93 Nasal 2.0L Cannula 06/05 0800 93 Nasal 2.0L Cannula 06/05 0712 190/80 06/05 0652 98.6 68 20 202/104 94 Nasal Cannula 06/05 0639 78 190/80 06/05 0536 70 202/104 06/05 0349 93 BIPAP 1.5L 06/05 0048 160/78 06/05 0000 BIPAP 06/04 2148 178/84 06/04 2148 178/84 06/04 2145 76 94 06/04 1900 95 Nasal 1.5L Cannula 06/04 1652 184/72 06/04 1600 95 Nasal 3.0L Cannula 06/04 1425 98.2 66 20 182/70 96 Nasal 2.0L Cannula 06/04 1421 93 Nasal 2.0L Cannula Intake & Output 06/05 1600 06/05 0800 06/05 0000 Intake Total 120 375 Output Total 350 450 Balance -230 -75 Intake, Oral 120 375 Output, Urine 350 450 Patient 182 lb Weight Weight Bed scale Measurement Method Impression/Plan Impression/Plan Impression/Plan: General Appearance: Alert, Oriented X3, Cooperative, No Acute Distress HEENT: PERRLA Neck: No JVD Cardiovascular: Normal S1, Normal S2, No Murmurs Lungs: Clear to Auscultation Abdomen: Soft Extremities: No Edema IMPRESSION 71 year old female with h/o CAD, LCX stentx2 in 2013, HTN, dyslipidemia, DM, CRI , CHF (last cath in August 2016 revealing non obstructive CAD, increased LVEDP), anemia, COPD admitted with respiratory failure secondary to pneumonia/flu, ARF on CRI. She remains oxygen dependent ISSUES Multilobar pna with Influenza SIg asthma and copd IHD REsolving resp failure Uncontrolled htn Chronic anemia SUSIE on nocturnal cpap DM / hypothyroid CKD REC Wean steriods to po 20 mg for one day, 10 for three days and 5 mg for three days and dc Cont nebs and inhalers COnt other meds BP control CPAP to use Wean oxygen off Xray in am PT alma Will follow
--- NOTE | 2017-06-05 20:47 | RADIOLOGY REPORT ---
EXAMINATION: XR CHEST CLINICAL INFORMATION: Multilobar pneumonia COMPARISON: Multiple prior chest x-rays, the most recent on 06/02/2017 TECHNIQUE: 2 views of the chest were obtained. FINDINGS: There has been interval improvement of of aeration of lungs since 06/02/2017 chest x-ray. Some residual opacities in the lower lungs are noted. There is mild cardiomegaly, pulmonary venous congestion and mild interstitial edema at the lung bases. There is prominence of the right paratracheal soft tissue, most likely representing engorged SVC. Small bilateral pleural effusions. No pneumothorax. Nerve stimulator again noted projecting over the spine. IMPRESSION: Interval improvement of bilateral pulmonary opacities which could represent improving pneumonia. Clinical correlation is suggested. Cardiomegaly, pulmonary venous congestion and interstitial edema. Small bilateral pleural effusions.
[2017-06-06 06:00] VITALS: BP 166/76
--- NOTE | 2017-06-06 08:24 | PN- Housestaff ---
See Addendum Subjective Follow-up For: Unconcontrolled BP chronic respiratory failure STEVE on CKD III B Tele-Events Since Last Visit: NSR with heart rate 64-74. No overnight events. Subjective: Patient was seen and examined at bedside. She reports doing well. She is anxious to know when she can be discharged home. She was informed her blood pressure is still pretty high and that she can go once it is down to normal limits. Review of Systems Constitutional: Reports: no symptoms. Objective Last 24 Hrs of Vital Signs/I&O Vital Signs Date Time Temp Pulse Resp B/P B/P Pulse O2 O2 Flow FiO2 Mean Ox Delivery Rate 06/06 1111 60 196/82 06/06 09 75 190/70 06/06 0936 75 190/70 06/06 0936 75 190/70 06/06 0936 75 190/70 06/06 0936 75 190/70 06/06 0934 75 190/70 06/06 0917 94 06/06 0800 Nasal 2.0L Cannula 06/06 0600 98.0 60 20 166/76 94 CPAP 06/06 0000 CPAP 06/05 2310 98.3 71 16 178/70 95 Nasal 2.0L Cannula 06/05 2130 95 06/05 2052 68 178/70 06/05 2051 68 178/70 06/05 1835 96 Nasal 1.5L Cannula 06/05 1600 Nasal 2.0L Cannula 06/05 1553 69 176/60 06/05 1440 98.6 72 18 178/72 93 Intake & Output 06/06 1600 06/06 0800 06/06 0000 Intake Total 110 450 Output Total 350 Balance 110 100 Intake, IV 10 Intake, Oral 100 450 Number 1 Bowel Movements Output, Urine 350 Patient 182 lb Weight Weight Bed scale Measurement Method Physical Exam General Appearance: Alert, Oriented X3, Cooperative, No Acute Distress Skin: No Rashes, No Breakdown Skin Temp/Moisture Exam: Warm/Dry Sepsis Skin Exam (color): Normal for Ethnicity HEENT: Atraumatic Cardiovascular: Normal S1, Normal S2, No Murmurs Lungs: Clear to Auscultation, Normal Air Movement Abdomen: Soft, No Tenderness Neurological: Normal Speech Extremities: No Edema Assessment/Plan Assessment: 71 year old female with an extensive past history including significant obstructive sleep apnea on nocturnal CPAP, HTN, HLD, Insulin dependent DM, chronic renal insufficiency, CHF, anemia, COPD, spinal stenosis s/p spinal stimulator with chronic pain. Active Problem list 1. Acute on chronic hypoxic respiratory failure; ambulatory desturation probably in the setting of acute illness and prolonged immobility 3. Acute on chronic kidney disease stage III, Cr 1.8 from 1.9>> 2.[address] [place]: Continue her antianginal and anti-ischemia medication ( statins, nitrate, B.blockers). 5. Hypertension: uncontrolled 6. Hx of type II DM and uncontrolled BS: FS are much better controlled Plan - continue to watch off Abx - continue Bumetanide 1 mg po BID - liberate the fluid restriction to 1500 ml - Po prednisosne; slow taper - continue aspirin, Imdur 120 mg , Coreg, statin - uncontrolled HTN; Losartan dose was increased to 100 mg daily; will keep her on same meds today to see effects of the meds that have just been changed. Cardiology input appreciated. - Continue doxacin 2mg BID - Continue hydralazine and amlodipine - Continue TRC nebs as needed - SUSIE on CPAP; trial of her own CPAP tonight; target O2 sat% >90% - O2 has been tapered at 1.5 L/min at rest via NC with target O2 sat> 90% - Desaturated to < 88% on ambulation on O2; recommended rehabilitation center for pulmonary rehab. - Ready to be discharged to SNF for mainly pulmonary rehab ONCE HER BP IS UNDER CONTROL; Insurance company did not approve d/c plan to [facility] for pulmonary rehab. - Her blood pressure remains to be elevated. She will need to be monitored until her blood pressure is within acceptable limits to be discharged. DVT prophylaxis - Heparin Code status - Full code Problem List: 1. Hypertension Pain Ratin Pain Location: none Pain Goal: Remain pain free Pain Plan: none Tomorrow's Labs & Rationales: CBC, BEP
[2017-06-06 09:34] VITALS: BP 190/70
[2017-06-06 11:11] VITALS: BP 196/82
--- NOTE | 2017-06-06 12:42 | PN- Pulmonary ---
Subjective HPI/Critical Care Issues: Patient was seen and examined at bedside. She reports doing well. She is anxious to know when she can be discharged home. Review of Systems Constitutional: Reports: no symptoms. Objective Current Medications: Current Medications Sig/Larissa Start time Last Medication Dose Route Stop Time Status Admin Acetaminophen 650 MG Q6P PRN 05/27 1245 AC 05/28 PO 0910 Acetaminophen 1,000 MG Q6P PRN 05/27 1245 AC 06/02 IV 2046 Albuterol Sulfate 3 ML BID 05/27 2200 AC 06/06 INH 1115 Amlodipine Besylate 10 MG DAILY 06/02 1000 AC 06/06 PO 0936 Aspirin Buffered 81 MG QPM 05/27 2200 AC 06/05 PO 2048 Atorvastatin Calcium 20 MG DAILY 05/27 1216 AC 06/06 PO 0936 Budesonide/ 2 PUF DAILY 05/27 1213 AC 06/06 Formoterol Fumarate INH 0939 Bumetanide 1 MG 0900,1200 06/05 0900 AC 06/06 PO 0935 Carvedilol 25 MG BID 05/27 1211 AC 06/06 PO 0936 Cholecalciferol 1,000 IU DAILY 05/28 1000 AC 06/06 PO 0936 Doxazosin Mesylate 2 MG BID 06/05 1000 AC 06/06 PO 0936 Duloxetine HCl 60 MG DAILY 05/28 1000 AC 06/06 PO 0936 Ferrous Sulfate 325 MG DAILY 05/28 1000 AC 06/06 PO 0936 Fish Oil 1,050 MG DAILY 05/28 1000 AC 06/06 PO 0935 Guaifenesin 600 MG Q12 05/28 1000 AC 06/06 PO 0936 Guaifenesin/ 10 ML Q6P PRN 05/29 0615 AC 05/29 Dextromethorphan PO 2149 Heparin Sodium 5,000 UNIT Q8 06/02 0853 AC 06/06 (Porcine) SC 0555 Hydralazine HCl 100 MG TID 05/27 1213 AC 06/06 PO 0936 Insulin Aspart 0 TIDAC 05/28 1200 AC 06/05 SC 1734 Insulin Detemir 25 UNITS BID 06/02 1000 AC 06/06 SC 0936 Isosorbide 120 MG DAILY 06/01 1000 AC 06/06 Mononitrate PO 0936 Levothyroxine Sodium 0.125 MG DAILY AC 05/27 1215 AC 06/06 PO 0555 Losartan Potassium 100 MG DAILY 06/03 1000 AC 06/06 PO 0936 Prednisone 5 MG DAILY 06/10 1000 AC PO 06/12 1001 Prednisone 10 MG DAILY 06/07 1000 AC PO 06/09 1001 Prednisone 20 MG DAILY 06/06 1000 CAN PO 06/13 0959 Prednisone 20 MG DAILY 06/06 1000 DC 06/06 PO 06/06 1001 0936 Prednisone 30 MG DAILY 06/03 1000 DC 06/05 PO 06/17 0959 0859 Senna/Docusate Sodium 2 TAB AT BEDTIME 05/27 2200 AC 06/05 PO 2047 Vital Signs & I&O Last 24 Hrs of Vitals and I&O: Vital Signs Date Time Temp Pulse Resp B/P B/P Pulse O2 O2 Flow FiO2 Mean Ox Delivery Rate 06/06 1115 98 Nasal 1.5L Cannula 06/06 1111 60 196/82 06/06 0936 75 190/70 06/06 0936 75 190/70 06/06 0936 75 190/70 06/06 0936 75 190/70 06/06 0936 75 190/70 06/06 0934 75 190/70 06/06 0917 94 06/06 0800 Nasal 2.0L Cannula 06/06 0600 98.0 60 20 166/76 94 CPAP 06/06 0000 CPAP 06/05 2310 98.3 71 16 178/70 95 Nasal 2.0L Cannula 06/05 2130 95 06/05 2052 68 178/70 06/05 2051 68 178/70 06/05 1835 96 Nasal 1.5L Cannula 06/05 1600 Nasal 2.0L Cannula 06/05 1553 69 176/60 06/05 1440 98.6 72 18 178/72 93 Intake & Output 06/06 1600 06/06 0800 06/06 0000 Intake Total 110 450 Output Total 350 Balance 110 100 Intake, IV 10 Intake, Oral 100 450 Number 1 Bowel Movements Output, Urine 350 Patient 182 lb Weight Weight Bed scale Measurement Method Laboratory Tests 06/06 06/05 0648 1212 Chemistry Sodium (137 - 145 mmol/L) 143 145 Potassium (3.5 - 5.1 mmol/L) 3.6 4.0 Chloride (98 - 107 mmol/L) 108 H 108 H Carbon Dioxide (22 - 30 mmol/L) 27 26 Anion Gap (5 - 16) 8 11 BUN (7 - 17 mg/dL) 83 H 81 H Creatinine (0.5 - 1.0 mg/dL) 2.1 H 2.1 H Estimated GFR (>60 ml/min) 23 L 23 L BUN/Creatinine Ratio (7 - 25 %) 39.5 H 38.6 H Impression/Plan Impression/Plan Impression/Plan: General Appearance: Alert, Oriented X3, Cooperative, No Acute Distress HEENT: PERRLA Neck: No JVD Cardiovascular: Normal S1, Normal S2, No Murmurs Lungs: Clear to Auscultation Abdomen: Soft Extremities: No Edema Cxr reviewed IMPRESSION: Interval improvement of bilateral pulmonary opacities which could represent improving pneumonia. Clinical correlation is suggested. Cardiomegaly, pulmonary venous congestion and interstitial edema. Small bilateral pleural effusions. DICTATED BY: Isabel Diaz MD DATE/TIME DICTATED:06/05/172038 IMPRESSION 71 year old female with h/o CAD, LCX stentx2 in 2013, HTN, dyslipidemia, DM, CRI , CHF (last cath in August 2016 revealing non obstructive CAD, increased LVEDP), anemia, COPD admitted with respiratory failure secondary to pneumonia/flu, ARF on CRI. She remains oxygen dependent ISSUES Multilobar pna with Influenza SIg asthma and copd IHD REsolving resp failure Uncontrolled htn Chronic anemia SUSIE on nocturnal cpap DM / hypothyroid CKD REC Wean steriods 10 for three days and 5 mg for three days and dc Cont nebs and inhalers COnt other meds BP control to be acheived per her primary team CPAP to use daily at hs Wean oxygen off if sue Xray in am PT eval Will follow
[2017-06-06 14:39] VITALS: BP 162/60
[2017-06-06 15:50] VITALS: BP 184/82
--- NOTE | 2017-06-06 20:02 | RADIOLOGY REPORT ---
EXAMINATION: XR PORTABLE CHEST CLINICAL INFORMATION: SOB. On oxygen. COMPARISON: Chest 2 views performed earlier today. TECHNIQUE: Portable frontal view of the chest was obtained. FINDINGS: Again visualized is mild cardiomegaly and increased pulmonary vascularity consistent with pulmonary vascular congestion. There is mild haziness in both lung bases likely atelectasis with effusion. The upper lungs are clear of consolidation. There is a new electrode overlying the sixth thoracic vertebra. No gross bony or mass seen. IMPRESSION: Cardiomegaly. Mild pulmonary vascular congestion stable to previous study. There is bibasilar haziness question effusion with underlying atelectasis.
[2017-06-06 23:04] VITALS: BP 174/70
[2017-06-07 07:19] VITALS: BP 160/82
[2017-06-07 08:22] LABS: ABSOLUTE BASOPHIL COUNT 0 /CUMM (0.0-0.2); ABSOLUTE EOSINOPHIL COUNT 0 /CUMM (0.0-0.7); ABSOLUTE GRANULOCYTE CT 6.7 /CUMM (1.4-6.5); ABSOLUTE LYMPH COUNT 0.9 /CUMM (1.2-3.4); ABSOLUTE MONOCYTE COUNT 0.7 /CUMM (0.10-0.60); BASOPHIL % 0 % (0.0-2.0); EOSINOPHIL % 0.2 % (0-5); GRANULOCYTE % 81.1 % (42.2-75.2); HEMATOCRIT 26.4 % (37-47); MEAN CORPUSCULAR HGB 29.2 PG (27.0-31.0); MEAN CORPUSCULAR HGB CONC 33.5 G/DL (33.0-37.0); MEAN CORPUSCULAR VOLUME 87.2 FL (81.0-99.0); MEAN PLATELET VOLUME 9.7 FL (7.4-10.4); PLATELET COUNT 201 /CUMM (130-400); RBC DISTRIBUTION WIDTH 15.9 % (11.5-14.5); RED BLOOD CELL CT 3.03 /CUMM (4.20-5.40); WHITE BLOOD CELL COUNT 8.3 /CUMM (4.8-10.8)
--- NOTE | 2017-06-07 08:42 | PN- Housestaff ---
See Addendum Subjective Follow-up For: Acute HRF on Chronic Respiratory failure Tele-Events Since Last Visit: Normal sinus rhythm Sinus bradycardia low 50s First-degree AV block [place] intervals 0.26 Subjective: Patient was visited and examined this morning. On nocturnal CPAP 2 L of oxygen nasal cannula continuous daytime (her baseline oxygen needs) Ambulates; using walker. Feels much better shortness of breath has improved. Fluid balance: Negative Vital signs are stable No Tovar Review of Systems Constitutional: Reports: see HPI. EENTM: Reports: no symptoms. Cardiovascular: Denies: chest pain, edema, orthopena, palpitations, peripheral edema, syncope. Respiratory: Denies: cough, hemoptysis, orthopnea, short of breath, sputum production, stridor, wheezing. Gastrointestinal: Reports: no symptoms. Genitourinary: Reports: no symptoms. Neurological/Psychological: Reports: no symptoms. Objective Last 24 Hrs of Vital Signs/I&O Vital Signs Date Time Temp Pulse Resp B/P B/P Pulse O2 O2 Flow FiO2 Mean Ox Delivery Rate 06/07 1042 95 Nasal 1.5L Cannula 06/07 0901 68 160/82 06/07 0901 68 160/82 06/07 0901 68 160/82 06/07 0900 68 160/82 06/07 0900 68 160/82 06/07 0800 94 Nasal 2.0L Cannula 06/07 0719 97.8 56 20 160/82 99 06/07 0000 Nasal 2.0L Cannula 06/06 2304 98.9 65 20 174/70 98 Nasal 2.0L Cannula 06/06 2130 68 98 06/06 2050 65 174/70 06/06 205 65 174/70 06/06 1859 99 Nasal 2.0L Cannula 06/06 1551 62 184/82 06/06 1550 62 184/82 06/06 1439 98.7 63 20 162/60 97 Nasal 2.0L Cannula Intake & Output 06/07 1600 06/07 0800 06/07 0000 Intake Total 420 Output Total 350 400 Balance -350 20 Intake, Oral 420 Output, Urine 350 400 Patient 179 lb Weight Weight Bed scale Measurement Method Physical Exam General Appearance: Alert, Oriented X3, Cooperative, No Acute Distress HEENT: PERRLA, EOMI, Mucous Membr. moist/pink Cardiovascular: Normal S1, Normal S2, No Murmurs Lungs: Clear to Auscultation, Normal Air Movement Abdomen: Soft Assessment/Plan Assessment: 71 year old female with an extensive past history including significant obstructive sleep apnea on nocturnal CPAP, HTN, HLD, Insulin dependent DM, chronic renal insufficiency, CHF, anemia, COPD, spinal stenosis s/p spinal stimulator with chronic pain. Active Problem list 1. Acute on chronic hypoxic respiratory failure; ambulatory desturation probably in the setting of acute illness and prolonged immobility 3. Acute on chronic kidney disease stage III, Cr 1.8 from 1.9>> 2.1 4. Type II [place]: Continue her antianginal and anti-ischemia medication ( statins, nitrate, B.blockers). 5. Hypertension: Controlled 6. Hx of type II DM and uncontrolled BS: FS are much better controlled Plan -Bumetanide 1 mg po BID - liberate the fluid restriction to 1500 ml - Po prednisosne; slow taper - continue aspirin, Imdur 120 mg , Coreg, statin - Losartan 100 mg daily - Continue doxazocin 2mg BID - Continue hydralazine and amlodipine - Continue TRC nebs as needed - SUSIE on CPAP; trial of her own CPAP tonight; target O2 sat% >90% - O2 has been tapered at 1.5 L/min at rest via NC with target O2 sat> 90% - Desaturated to < 88% on ambulation on O2; recommended rehabilitation center for pulmonary rehab. - Ready to be discharged to SNF; patient awaits peer review by pillowcase cleaner; insurance issues DVT prophylaxis - Heparin SQ Code status - Full code Problem List: 1. CHF (congestive heart failure) 2. Acute on chronic kidney disease, stage 3 Pain Ratin Pain Location: na Pain Goal: Remain pain free Pain Plan: pain pathway Tomorrow's Labs & Rationales: none DVT/Prophylaxis: mechanical, pharmacological
--- NOTE | 2017-06-07 10:28 | PN- Pulmonary ---
Subjective HPI/Critical Care Issues: Stable BP still running high but better Objective Current Medications: Current Medications Sig/Larissa Start time Last Medication Dose Route Stop Time Status Admin Acetaminophen 650 MG Q6P PRN 05/27 1245 AC 05/28 PO 0910 Acetaminophen 1,000 MG Q6P PRN 05/27 1245 AC 06/02 IV 2046 Albuterol Sulfate 3 ML BID 05/27 2200 AC 06/06 INH 1858 Amlodipine Besylate 10 MG DAILY 06/02 1000 AC 06/07 PO 0901 Aspirin Buffered 81 MG QPM 05/27 2200 AC 06/06 PO 2048 Atorvastatin Calcium 20 MG DAILY 05/27 1216 AC 06/07 PO 0901 Budesonide/ 2 PUF DAILY 05/27 1213 AC 06/07 Formoterol Fumarate INH 0901 Bumetanide 1 MG 0900,1200 06/05 0900 AC 06/07 PO 0825 Carvedilol 25 MG BID 05/27 1211 AC 06/07 PO 0901 Cholecalciferol 1,000 IU DAILY 05/28 1000 AC 06/07 PO 0901 Doxazosin Mesylate 2 MG BID 06/05 1000 AC 06/07 PO 0900 Duloxetine HCl 60 MG DAILY 05/28 1000 AC 06/07 PO 0901 Ferrous Sulfate 325 MG DAILY 05/28 1000 AC 06/07 PO 0901 Fish Oil 1,050 MG DAILY 05/28 1000 AC 06/07 PO 0901 Guaifenesin 600 MG Q12 05/28 1000 AC 06/07 PO 0901 Guaifenesin/ 10 ML Q6P PRN 05/29 0615 AC 05/29 Dextromethorphan PO 2149 Heparin Sodium 5,000 UNIT Q8 06/02 0853 AC 06/07 (Porcine) SC 0700 Hydralazine HCl 100 MG TID 05/27 1213 AC 06/07 PO 0900 Insulin Aspart 0 TIDAC 05/28 1200 AC 06/06 SC 1248 Insulin Detemir 25 UNITS BID 06/02 1000 AC 06/07 SC 0908 Isosorbide 120 MG DAILY 06/01 1000 AC 06/07 Mononitrate PO 0900 Levothyroxine Sodium 0.125 MG DAILY AC 05/27 1215 AC 06/07 PO 0700 Losartan Potassium 100 MG DAILY 06/03 1000 AC 06/07 PO 0901 Prednisone 5 MG DAILY 06/10 1000 AC PO 06/12 1001 Prednisone 10 MG DAILY 06/07 1000 AC 06/07 PO 06/09 1001 0901 Senna/Docusate Sodium 2 TAB AT BEDTIME 05/27 2200 AC 06/06 PO 2048 Vital Signs & I&O Last 24 Hrs of Vitals and I&O: Vital Signs Date Time Temp Pulse Resp B/P B/P Pulse O2 O2 Flow FiO2 Mean Ox Delivery Rate 06/07 09 68 160/82 06/07 09 68 160/82 06/07 09 68 160/82 06/07 09 68 160/82 06/07 0900 68 160/82 06/07 0719 97.8 56 20 160/82 99 06/07 0000 Nasal 2.0L Cannula 06/06 2304 98.9 65 20 174/70 98 Nasal 2.0L Cannula 06/06 2130 68 98 06/06 2050 65 174/70 06/06 2050 65 174/70 06/06 1859 99 Nasal 2.0L Cannula 06/06 1551 62 184/82 06/06 1550 62 184/82 06/06 1439 98.7 63 20 162/60 97 Nasal 2.0L Cannula 06/06 1115 98 Nasal 1.5L Cannula 06/06 1111 60 196/82 Intake & Output 06/07 1600 06/07 0800 06/07 0000 Intake Total 420 Output Total 350 400 Balance -350 20 Intake, Oral 420 Output, Urine 350 400 Patient 179 lb Weight Weight Bed scale Measurement Method Impression/Plan Impression/Plan Impression/Plan: General Appearance: Alert, Oriented X3, Cooperative, No Acute Distress HEENT: PERRLA Neck: No JVD Cardiovascular: Normal S1, Normal S2, No Murmurs Lungs: Clear to Auscultation Abdomen: Soft Extremities: No Edema Cxr reviewed IMPRESSION: Interval improvement of bilateral pulmonary opacities which could represent improving pneumonia. Clinical correlation is suggested. Cardiomegaly, pulmonary venous congestion and interstitial edema. Small bilateral pleural effusions. DICTATED BY: Isabel Diaz MD DATE/TIME DICTATED:06/05/172038 IMPRESSION 71 year old female with h/o CAD, LCX stentx2 in 2013, HTN, dyslipidemia, DM, CRI , CHF (last cath in August 2016 revealing non obstructive CAD, increased LVEDP), anemia, COPD admitted with respiratory failure secondary to pneumonia/flu, ARF on CRI. She remains oxygen dependent ISSUES Resolved Multilobar pna with Influenza SIg asthma and copd IHD REsolving resp failure Uncontrolled htn Chronic anemia SUSIE on nocturnal cpap DM / hypothyroid CKD REC Wean steriods 10 for two days and 5 mg for three days and dc Cont nebs and inhalers COnt other meds BP control to be acheived per her primary team CPAP to use daily at hs Wean oxygen off if sue ok to dc
[2017-06-07 14:33] VITALS: BP 158/62
[2017-06-07 22:00] VITALS: BP 158/80
[2017-06-08 07:10] VITALS: BP 160/76
--- NOTE | 2017-06-08 07:28 | PN- Housestaff ---
See Addendum Subjective Follow-up For: acute on chronic hypoxic respiratory failure due to influenza and fluid overload -impoving HTN urgency- controlled Hx of DM- Hpoglycemia Complaints: feels tired; her CPaP machine broke last night and she could not get enough sleep Tele-Events Since Last Visit: Sinus rhythm sinus rate-sinue ember as low as 50s stable; 1sth degree AV block Subjective: Patient feels tired today Cpap mahine broke last night and she could not sleep at all. VSS. Breathing much improved; on 2 lit NC at rest ( base line) Blood suger was as low as 50 this am. Patient denies any sweating, nausea, vomiting. Had two orange juices and improved. Fluid balance is negative Review of Systems Constitutional: Reports: see HPI. EENTM: Reports: see HPI. Cardiovascular: Reports: no symptoms, see HPI. Respiratory: Reports: no symptoms, see HPI. Gastrointestinal: Reports: no symptoms. Musculoskeletal: Reports: no symptoms. Objective Last 24 Hrs of Vital Signs/I&O Vital Signs Date Time Temp Pulse Resp B/P B/P Pulse O2 O2 Flow FiO2 Mean Ox Delivery Rate 06/08 0710 97.1 54 16 160/76 99 Nasal 2.0L Cannula 06/08 0000 Nasal 2.0L Cannula 06/07 2254 72 97 06/07 2200 98.4 62 18 158/80 100 06/07 2119 78 142/60 06/07 2119 78 142/60 06/07 1638 66 172/64 06/07 1600 Nasal 2.0L Cannula 06/07 1433 98.2 63 20 158/62 93 Nasal 1.5L Cannula 06/07 1042 95 Nasal 1.5L Cannula 06/07 0901 68 160/82 06/07 0901 68 160/82 06/07 0901 68 160/82 06/07 0900 68 160/82 06/07 0900 68 160/82 Intake & Output 06/08 1600 06/08 0800 06/08 0000 Intake Total 240 240 Output Total 400 350 Balance -160 -110 Intake, Oral 240 240 Output, Urine 400 350 Physical Exam General Appearance: Alert, Oriented X3, Cooperative HEENT: Atraumatic, PERRLA, EOMI, Mucous Membr. moist/pink Neck: No JVD Cardiovascular: Normal S1, Normal S2, No Murmurs Lungs: Clear to Auscultation, Normal Air Movement Abdomen: Soft Neurological: tired Extremities: No Cyanosis, No Edema Vascular: Normal Pulses, Pulses Symmetrical Current Medications: Current Medications Sig/Larissa Start time Last Medication Dose Route Stop Time Status Admin Acetaminophen 650 MG Q6P PRN 05/27 1245 AC 05/28 PO 0910 Acetaminophen 1,000 MG Q6P PRN 05/27 1245 AC 06/02 IV 2046 Albuterol Sulfate 3 ML BID 05/27 2200 AC 06/07 INH 1900 Amlodipine Besylate 10 MG DAILY 06/02 1000 AC 06/07 PO 0901 Aspirin Buffered 81 MG QPM 05/27 2200 AC 06/07 PO 2120 Atorvastatin Calcium 20 MG DAILY 05/27 1216 AC 06/07 PO 0901 Budesonide/ 2 PUF DAILY 05/27 1213 AC 06/07 Formoterol Fumarate INH 0901 Bumetanide 1 MG 0900,1200 06/05 0900 AC 06/07 PO 1208 Carvedilol 25 MG BID 05/27 1211 AC 06/07 PO 2119 Cholecalciferol 1,000 IU DAILY 05/28 1000 AC 06/07 PO 0901 Doxazosin Mesylate 2 MG BID 06/05 1000 AC 06/07 PO 2117 Duloxetine HCl 60 MG DAILY 05/28 1000 AC 06/07 PO 0901 Ferrous Sulfate 325 MG DAILY 05/28 1000 AC 06/07 PO 0901 Fish Oil 1,050 MG DAILY 05/28 1000 AC 06/07 PO 0901 Guaifenesin 600 MG Q12 05/28 1000 AC 06/07 PO 2120 Guaifenesin/ 10 ML Q6P PRN 05/29 0615 AC 05/29 Dextromethorphan PO 2149 Heparin Sodium 5,000 UNIT Q8 06/02 0853 AC 06/08 (Porcine) SC 0527 Hydralazine HCl 100 MG TID 05/27 1213 AC 06/07 PO 2119 Insulin Aspart 0 TIDAC 06/08 1200 UNVr SC Insulin Aspart 0 TIDAC 05/28 1200 DC 06/07 SC 1208 Insulin Detemir 20 UNITS DAILY 06/09 1000 UNVr SC Insulin Detemir 25 UNITS DAILY 06/08 1000 UNVr SC Insulin Detemir 25 UNITS BID 06/02 1000 DC 06/07 SC 2127 Isosorbide 120 MG DAILY 06/01 1000 AC 06/07 Mononitrate PO 0900 Levothyroxine Sodium 0.125 MG DAILY AC 05/27 1215 AC 06/08 PO 0526 Losartan Potassium 100 MG DAILY 06/03 1000 AC 06/07 PO 0901 Prednisone 5 MG DAILY 06/10 1000 AC PO 06/12 1001 Prednisone 10 MG DAILY 06/07 1000 AC 06/07 PO 06/09 1001 0901 Senna/Docusate Sodium 2 TAB AT BEDTIME 05/27 2200 AC 06/06 PO 2048 Assessment/Plan Assessment: The patient is a 71 year old female with an extensive past history including significant obstructive sleep apnea on nocturnal CPAP, HTN, HLD, Insulin dependent DM, chronic renal insufficiency, CHF, anemia, COPD, spinal stenosis s/ p spinal stimulator with chronic pain. Active Problem list 1. Acute on chronic hypoxic respiratory failure; ambulatory desturation probably in the setting of acute illness and prolonged immobility 3. Acute on chronic kidney disease stage III, Cr 1.8 from 1.9>> 2.1 4. type II [place]: Continue her antianginal and antiischemia medication ( statins, nitrate, B.blockers). 5. Hypertension: resume her home meds 6. Hx of type II DM and uncontrolled BS:hypoglycemic this am 7. SUSIE, CPaP is broken Plan - start Bumetanide 1 mg po BID - Po prednisosne; slow taper -continue aspirin, Imdur 120 mg , Coreg, statin -uncontrolled HTN; Losartan dose was increased to 100 mg daily - add doxazosin 2 mg po bid - Continue hydralazine and amlodipine ( increased to 10 mg) - SUSIE on CPAP; her CPAP machine is broken order for CPAP was placed - Ready to be discharged to SNF for mainly pulmonary rehab; insurance issues; case manage is working on discharge plan; her apron trimmer Dr. Jackman recommended discharge home with home PT DVT prophylaxis - Heparin Code status - Full code Problem List: 1. Acute on chronic kidney disease, stage 3 2. CHF (congestive heart failure) 3. Shingles 4. Acute kidney injury 5. Diabetes mellitus Pain Ratin Pain Location: none Pain Goal: Remain pain free Pain Plan: pain pathway Tomorrow's Labs & Rationales: none Discharge Plan Stable for Discharge? Yes Anticipated Discharge (Day): today Stable for Discharge? Yes Anticipated Discharge (Day): today
--- NOTE | 2017-06-08 07:39 | PN- Cardiology ---
Subjective Subjective: Reports occasional SOB. She is on 2L oxygen. Objective Vital Signs and I&Os Vital Signs Date Time Temp Pulse Resp B/P B/P Pulse O2 O2 Flow FiO2 Mean Ox Delivery Rate 06/08 0710 97.1 54 16 160/76 99 Nasal 2.0L Cannula 06/08 0000 Nasal 2.0L Cannula 06/07 2254 72 97 06/07 2200 98.4 62 18 158/80 100 06/07 211 78 142/60 06/07 2119 78 142/60 06/07 1638 66 172/64 06/07 1600 Nasal 2.0L Cannula 06/07 1433 98.2 63 20 158/62 93 Nasal 1.5L Cannula 06/07 1042 95 Nasal 1.5L Cannula 06/07 0901 68 160/82 06/07 0901 68 160/82 06/07 0901 68 160/82 06/07 0900 68 160/82 06/07 0900 68 160/82 06/07 0800 94 Nasal 2.0L Cannula Intake & Output 06/08 0800 06/08 0000 06/07 1600 06/07 0800 06/07 0000 06/06 1600 Intake Total 240 240 600 420 600 Output Total 400 350 750 350 400 650 Balance -160 -110 -150 -350 20 -50 Intake, Oral 240 240 600 420 600 Output, Urine 400 350 750 350 400 650 Patient 179 lb 182 lb Weight Weight Bed scale Bed scale Measurement Method Physical Exam: HEENT-PERRLA Neck-JVP normal, no bruits Lungs-very few rhonchi-much improved Heart-nl S1S1, regular, no murmur Abdomen-soft, not tender, BS+, no organomegaly Ext-trace edema, 2+ pulses Neuro-non focal Assessment/Plan Assessment/Plan 71 year old female with h/o CAD, LCX stentx2 in 2013, HTN, dyslipidemia, DM, CRI , CHF (last cath in August 2016 revealing non obstructive CAD, increased LVEDP), anemia, COPD admitted with respiratory failure secondary to pneumonia/flu, ARF on CRI. She remains oxygen dependent. Blood pressure not well controlled. Component of HFpEF. Currently on bumetanide. Creatinine stable HTN-BP better after doxazosina added Plan: continue current medications change losartan back to irbesartan for discharge D/C to [place] vs home with home PT Continue telemetry? No
--- NOTE | 2017-06-08 08:58 | PN- Pulmonary ---
Subjective HPI/Critical Care Issues: The patient is awake and alert. She reports feeling improved overall. Her blood sugar however was noted to be less than 50 and she is now feeling better after drinking orange juice. A serum blood sugar is being sent to the lab. She remains on 2 L nasal cannula. She is intermittently short of breath. Overall she's feeling improved and offers no new complaints today. Objective Current Medications: Current Medications Sig/Larissa Start time Last Medication Dose Route Stop Time Status Admin Acetaminophen 650 MG Q6P PRN 05/27 1245 AC 05/28 PO 0910 Acetaminophen 1,000 MG Q6P PRN 05/27 1245 AC 06/02 IV 2046 Albuterol Sulfate 3 ML BID 05/27 2200 AC 06/07 INH 1900 Amlodipine Besylate 10 MG DAILY 06/02 1000 AC 06/07 PO 0901 Aspirin Buffered 81 MG QPM 05/27 2200 AC 06/07 PO 2120 Atorvastatin Calcium 20 MG DAILY 05/27 1216 AC 06/07 PO 0901 Budesonide/ 2 PUF DAILY 05/27 1213 AC 06/07 Formoterol Fumarate INH 0901 Bumetanide 1 MG 0900,1200 06/05 0900 AC 06/07 PO 1208 Carvedilol 25 MG BID 05/27 1211 AC 06/07 PO 2119 Cholecalciferol 1,000 IU DAILY 05/28 1000 AC 06/07 PO 0901 Doxazosin Mesylate 2 MG BID 06/05 1000 AC 06/07 PO 2117 Duloxetine HCl 60 MG DAILY 05/28 1000 AC 06/07 PO 0901 Ferrous Sulfate 325 MG DAILY 05/28 1000 AC 06/07 PO 0901 Fish Oil 1,050 MG DAILY 05/28 1000 AC 06/07 PO 0901 Guaifenesin 600 MG Q12 05/28 1000 AC 06/07 PO 2120 Guaifenesin/ 10 ML Q6P PRN 05/29 0615 AC 05/29 Dextromethorphan PO 2149 Heparin Sodium 5,000 UNIT Q8 06/02 0853 AC 06/08 (Porcine) SC 0527 Hydralazine HCl 100 MG TID 05/27 1213 AC 06/07 PO 2119 Insulin Aspart 0 TIDAC 06/08 1200 AC SC Insulin Aspart 0 TIDAC 05/28 1200 DC 06/07 SC 1208 Insulin Detemir 20 UNITS DAILY 01/03 1000 UNVr SC Insulin Detemir 25 UNITS DAILY 06/08 1000 UNVr SC Insulin Detemir 25 UNITS BID 06/02 1000 DC 06/07 SC 2127 Isosorbide 120 MG DAILY 06/01 1000 AC 06/07 Mononitrate PO 0900 Levothyroxine Sodium 0.125 MG DAILY AC 05/27 1215 AC 06/08 PO 0526 Losartan Potassium 100 MG DAILY 06/03 1000 AC 06/07 PO 0901 Prednisone 5 MG DAILY 06/10 1000 AC PO 06/12 1001 Prednisone 10 MG DAILY 06/07 1000 AC 06/07 PO 06/09 1001 0901 Senna/Docusate Sodium 2 TAB AT BEDTIME 05/27 2200 AC 06/06 PO 2049 Vital Signs & I&O Last 24 Hrs of Vitals and I&O: Vital Signs Date Time Temp Pulse Resp B/P B/P Pulse O2 O2 Flow FiO2 Mean Ox Delivery Rate 06/08 0710 97.1 54 16 160/76 99 Nasal 2.0L Cannula 06/08 0000 Nasal 2.0L Cannula 06/07 2254 72 97 06/07 2200 98.4 62 18 158/80 100 06/07 2119 78 142/60 06/07 2119 78 142/60 06/07 1638 66 172/64 06/07 1600 Nasal 2.0L Cannula 06/07 1433 98.2 63 20 158/62 93 Nasal 1.5L Cannula 06/07 1042 95 Nasal 1.5L Cannula 06/07 0901 68 160/82 06/07 0901 68 160/82 06/07 0901 68 160/82 06/07 09 68 160/82 06/07 09 68 160/82 Intake & Output 06/08 1600 06/08 0800 06/08 0000 Intake Total 240 240 Output Total 400 350 Balance -160 -110 Intake, Oral 240 240 Output, Urine 400 350 Patient 181 lb Weight Weight Bed scale Measurement Method Physical Exam General Appearance: no apparent distress, alert, awake, comfortable Head: atraumatic, normal appearance Eyes: Bilateral: PERRL. Neck: supple Respiratory: decreased breath sounds, crackles, rhonchi Cardiovascular: S1 and S2 heard Gastrointestinal: normal bowel sounds, soft, non-tender Extremities: no edema Skin: intact, normal color, warm/dry Results Last 24 Hrs of Lab Results: No current labs Diagnostic Data CXR Findings: 06/06: Cardiomegaly. Mild pulmonary vascular congestion stable to previous study. There is bibasilar haziness question effusion with underlying atelectasis. Impression/Plan Impression/Plan Impression/Plan: 1. Multilobar pneumonia, respiratory failure, influenza swab positive. The patient has clinically improved with an improved oxygen requirement. She is no longer requiring BIPAP during the day. 2. Recurrent congestive heart failure, clinically improving on Lasix. 3. History of hypertension. 4. Chronic anemia without evidence of active bleeding. 5. Chronic kidney disease, stage III, secondary to hypertensive/diabetic nephrosclerosis. 6. History of obstructive sleep apnea, on nocturnal nasal CPAP. 7. History diabetes. 8. Hypothyroidism, on Synthroid. 9. History of asthma/COPD. Recommendations: * Monitor off antibiotics. * Continue nocturnal CPAP on discharge. * Continue oxygen for saturations greater than 92%. * Continue Symbicort and albuterol. * Continue nebs/TRC. * Cardiology follow up recommendations noted. * Taper steroids off. * Continue home medications as per primary medicine team. * Increase activity/out of bed to chair/PT. * DVT prophylaxis at all times. * Continue all supportive care.
[2017-06-08 15:00] VITALS: BP 140/70
[2017-06-08 23:05] VITALS: BP 158/70
[2017-06-09 06:51] VITALS: BP 162/80
--- NOTE | 2017-06-09 07:40 | PN- Cardiology ---
Subjective Subjective: Feels good, dyspnea significantly improved Objective Vital Signs and I&Os Vital Signs Date Time Temp Pulse Resp B/P B/P Pulse O2 O2 Flow FiO2 Mean Ox Delivery Rate 06/09 0651 98.1 63 18 162/80 96 BIPAP 06/09 0000 CPAP 06/08 2305 96.7 69 18 158/70 95 BIPAP 06/08 2241 70 140/70 06/08 2042 70 98 06/08 1600 Nasal 2.0L Cannula 06/08 1600 60 140/70 06/08 1500 140/70 06/08 1454 98.4 60 18 95 Nasal 2.0L Cannula 06/08 1207 Nasal 4.0L Cannula 06/08 1040 54 160/76 06/08 1039 54 160/76 06/08 1039 54 160/76 06/08 1038 54 160/76 06/08 1038 54 160/76 06/08 0915 99 Nasal 2.0L Cannula 06/08 0800 99 Nasal 2.0L Cannula Intake & Output 06/09 0800 06/09 0000 06/08 1600 06/08 0800 06/08 0000 06/07 1600 Intake Total 110 200 680 240 240 600 Output Total 375 500 300 400 350 750 Balance -265 -300 380 -160 -110 -150 Intake, IV 10 Intake, Oral 100 200 680 240 240 600 Output, Urine 375 500 300 400 350 750 Patient 181 lb 179 lb Weight Weight Bed scale Bed scale Measurement Method Physical Exam: HEENT-PERRLA dry oral mucosa Neck-JVP normal, no bruits Lungs-improved aeration, clear bilaterally Heart-S1S2 regular,no murmur Abdomen-soft, not tender, BS+, no organomegaly Extr-no edema, 2+ pulses neuro-non focal Assessment/Plan Assessment/Plan 71 year old female with h/o CAD, LCX stentx2 in 2013, HTN, dyslipidemia, DM, CRI , CHF (last cath in August 2016 revealing non obstructive CAD, increased LVEDP), anemia, COPD admitted with respiratory failure secondary to pneumonia/flu, ARF on CRI, HFpEF. Currently well compensated from cardiac standpoint. BP improved after doxazosin added. Renal function stable. Plan: continue current medications change losartan back to irbesartan for discharge She may be discharged to [facility]. In that case, I can see her in our [place] office next week. Monitor blood sugars while on prednisone Continue telemetry? No
--- NOTE | 2017-06-09 09:15 | PN- Housestaff ---
Edilson GUTIERREZ,[facility] 06/09/17 0915: Subjective Follow-up For: acute on chronic hypoxic respiratory failure due to influenza and fluid overload -impoving HTN urgency- controlled Hx of DM- Hpoglycemia Subjective: Patient was seen and examined, offer no complaints, vital signs stabel. Review of Systems Constitutional: Reports: see HPI. Objective Last 24 Hrs of Vital Signs/I&O Vital Signs Date Time Temp Pulse Resp B/P B/P Pulse O2 O2 Flow FiO2 Mean Ox Delivery Rate 06/09 1135 98.1 63 18 162/80 06/09 0918 98 Nasal 2.0L Cannula 06/09 0818 63 162/80 06/09 0817 63 162/80 06/09 0817 63 162/80 06/09 0816 63 162/80 06/09 0816 63 162/80 06/09 0800 Nasal 2.0L Cannula 06/09 0651 98.1 63 18 162/80 96 BIPAP 06/09 0000 CPAP 06/08 2305 96.7 69 18 158/70 95 BIPAP 06/08 2241 70 140/70 06/08 2042 70 98 Intake & Output 06/09 1600 06/09 0800 06/09 0000 Intake Total 110 200 Output Total 375 500 Balance -265 -300 Intake, IV 10 Intake, Oral 100 200 Output, Urine 375 500 Patient 81.902 kg Weight Weight Bed scale Measurement Method Physical Exam General Appearance: Alert, Oriented X3, Cooperative, No Acute Distress Skin: No Rashes Skin Temp/Moisture Exam: Warm/Dry HEENT: Atraumatic, PERRLA, EOMI, Mucous Membr. moist/pink Neck: Supple Cardiovascular: Regular Rate, Normal S1, Normal S2, No Murmurs Lungs: Clear to Auscultation, Normal Air Movement Abdomen: Normal Bowel Sounds, Soft, No Tenderness Neurological: Normal Gait, Normal Speech, Strength at 5/5 X4 Ext, Normal Tone, Sensation Intact, Cranial Nerves 3-12 NL, Reflexes 2+ Extremities: No Clubbing, No Cyanosis, No Edema, Normal Pulses Assessment/Plan Assessment: The patient is a 71 year old female with an extensive past history including significant obstructive sleep apnea on nocturnal CPAP, HTN, HLD, Insulin dependent DM, chronic renal insufficiency, CHF, anemia, COPD, spinal stenosis s/ p spinal stimulator with chronic pain. Active Problem list 1. Acute on chronic hypoxic respiratory failure; ambulatory desturation probably in the setting of acute illness and prolonged immobility 3. Acute on chronic kidney disease stage III, Cr 1.8 from 1.9>> 2.1 4. type II KS: Continue her antianginal and antiischemia medication ( statins, nitrate, B.blockers). 5. Hypertension: resume her home meds 6. Hx of type II DM and uncontrolled BS:hypoglycemic this am 7. SUSIE, CPaP is broken Plan - Continue Bumetanide 1 mg po BID - Po prednisosne; slow taper -continue aspirin, Imdur 120 mg , Coreg, statin -uncontrolled HTN; Losartan dose was increased to 100 mg daily, will stwitch to irbesartan upon discharge - doxazosin 2 mg po bid - Continue hydralazine and amlodipine ( increased to 10 mg) - SUSIE on CPAP; her CPAP machine is broken order for CPAP was placed - Ready to be discharged to SNF for mainly pulmonary rehab DVT prophylaxis - Heparin Code status - Full code Problem List: 1. Asthma 2. Diabetes mellitus Pain Ratin Pain Location: n/a Pain Goal: Pain 4 or less Pain Plan: see medication Tomorrow's Labs & Rationales: n/a Rima GUTIERREZ,[facility] 06/09/17 1242: Attending MD Review Statement Attending Statement Attending MD Statement: examined this patient, discuss w/resident/PA/[employer], agreed w/resident/PA/[employer], discussed with family, reviewed EMR data (avail), discussed with nursing, discussed with case mgmt, amended to note Attending Assessment/Plan: Patient seen and examined. Resting comfortably and not in any acute distress. No issues overnight reported by nursing staff. She did not have any episode of severe hypoglycemia again this morning. She reports feeling well. On examination she has good entry bilaterally lungs are clear to auscultation. She is medically stable to be discharged today. [facility] She is to complete her she will continue nocturnal BiPAP therapy as well follow-up with the security engineer service as an outpatient.
--- NOTE | 2017-06-09 09:17 | PN- Pulmonary ---
Subjective HPI/Critical Care Issues: The patient is awake and alert. She reports feeling markedly improved. She notes that her shortness of breath is much better overall. Her oxygen saturation is 96% on 2 L nasal cannula. She is afebrile. There were no overnight events reported. She is awaiting transfer to short-term rehabilitation. Objective Current Medications: Current Medications Sig/Larissa Start time Last Medication Dose Route Stop Time Status Admin Acetaminophen 650 MG Q6P PRN 05/27 1245 AC 05/28 PO 0910 Acetaminophen 1,000 MG Q6P PRN 05/27 1245 AC 06/02 IV 2046 Albuterol Sulfate 3 ML BID 05/27 2200 AC 06/08 INH 2030 Amlodipine Besylate 10 MG DAILY 06/02 1000 AC 06/09 PO 0818 Aspirin 81 MG .STK-MED ONE 06/088 DC PO 06/08 2249 Aspirin Buffered 81 MG QPM 05/27 2200 AC 06/07 PO 2120 Atorvastatin Calcium 20 MG DAILY 05/27 1216 AC 06/09 PO 0818 Budesonide/ 2 PUF DAILY 05/27 1213 AC 06/09 Formoterol Fumarate INH 0819 Bumetanide 1 MG 0900,1200 06/05 0900 AC 06/09 PO 0816 Carvedilol 25 MG BID 05/27 1211 AC 06/09 PO 0817 Cholecalciferol 1,000 IU DAILY 05/28 1000 AC 06/09 PO 0818 Doxazosin Mesylate 2 MG BID 06/05 1000 AC 06/09 PO 0817 Duloxetine HCl 60 MG DAILY 05/28 1000 AC 06/09 PO 0817 Ferrous Sulfate 325 MG DAILY 05/28 1000 AC 06/09 PO 0817 Fish Oil 1,050 MG DAILY 05/28 1000 AC 06/09 PO 0815 Guaifenesin 600 MG Q12 05/28 1000 AC 06/09 PO 0818 Guaifenesin/ 10 ML Q6P PRN 05/29 0615 AC 05/29 Dextromethorphan PO 2149 Heparin Sodium 5,000 UNIT Q8 06/02 0853 AC 06/09 (Porcine) SC 0550 Hydralazine HCl 100 MG TID 05/27 1213 AC 06/09 PO 0816 Insulin Aspart 0 TIDAC 06/08 1200 AC 06/08 SC 1700 Insulin Detemir 20 UNITS AT BEDTIME 06/08 2200 AC 06/08 SC 2200 Insulin Detemir 25 UNITS DAILY 06/08 1000 AC 06/09 SC 0815 Isosorbide 120 MG DAILY 06/01 1000 AC 06/09 Mononitrate PO 0816 Levothyroxine Sodium 0.125 MG DAILY AC 05/27 1215 AC 06/09 PO 0550 Losartan Potassium 100 MG DAILY 06/03 1000 AC 06/09 PO 0817 Prednisone 5 MG DAILY 06/10 1000 AC PO 06/12 1001 Prednisone 10 MG DAILY 06/07 1000 AC 06/09 PO 06/09 1001 0818 Senna/Docusate Sodium 2 TAB AT BEDTIME 05/27 2200 AC 06/06 PO 2049 Vital Signs & I&O Last 24 Hrs of Vitals and I&O: Vital Signs Date Time Temp Pulse Resp B/P B/P Pulse O2 O2 Flow FiO2 Mean Ox Delivery Rate 06/09 0818 63 162/80 06/09 0817 63 162/80 06/09 0817 63 162/80 06/09 0816 63 162/80 06/09 0816 63 162/80 06/09 0800 Nasal 2.0L Cannula 06/09 0651 98.1 63 18 162/80 96 BIPAP 06/09 0000 CPAP 06/08 2305 96.7 69 18 158/70 95 BIPAP 06/08 2241 70 140/70 06/08 2042 70 98 06/08 1600 Nasal 2.0L Cannula 06/08 1600 60 140/70 06/08 1500 140/70 06/08 1454 98.4 60 18 95 Nasal 2.0L Cannula 06/08 1207 Nasal 4.0L Cannula 06/08 1040 54 160/76 06/08 1039 54 160/76 06/08 1039 54 160/76 06/08 1038 54 160/76 06/08 1038 54 160/76 Intake & Output 06/09 1600 06/09 0800 06/09 0000 Intake Total 110 200 Output Total 375 500 Balance -265 -300 Intake, IV 10 Intake, Oral 100 200 Output, Urine 375 500 Patient 181 lb Weight Weight Bed scale Measurement Method Physical Exam General Appearance: no apparent distress, alert, awake, comfortable Head: atraumatic, normal appearance Eyes: Bilateral: PERRL. Neck: supple Respiratory: decreased breath sounds, crackles, rhonchi Cardiovascular: S1 and S2 heard Gastrointestinal: normal bowel sounds, soft, non-tender Extremities: no edema Skin: intact, normal color, warm/dry Results Last 24 Hrs of Lab Results: Laboratory Tests 06/08/17 1020: Anion Gap 9, Estimated GFR 28 L, BUN/Creatinine Ratio 38.3 H, Glucose 165 H Impression/Plan Impression/Plan Impression/Plan: 1. Multilobar pneumonia, improved respiratory failure. 2. Recurrent congestive heart failure, clinically improving on Lasix. 3. History of hypertension. 4. Chronic anemia without evidence of active bleeding. 5. Chronic kidney disease, stage III, secondary to hypertensive/diabetic nephrosclerosis. 6. History of obstructive sleep apnea, on nocturnal nasal CPAP. 7. History diabetes. 8. Hypothyroidism, on Synthroid. 9. History of asthma/COPD. Recommendations: * Continue nocturnal CPAP on discharge. * Continue oxygen for saturations greater than 92%. * Continue Symbicort and albuterol. * Continue nebs/TRC. * Taper steroids off. * Continue home medications as per primary medicine team. * Increase activity/out of bed to chair/PT. * DVT prophylaxis at all times. * Await transfer to short-term rehabilitation.
[2017-06-09] MEDS ORDERED: PREDNISONE5 M1 PO (10:08)
[2017-06-09] MEDS ORDERED: LEVEMIR100 UNIT/1 SC ×2 (10:20)
[2017-06-09] MEDS ORDERED: EDARBI80 M1 PO (11:32)
[2017-06-09 11:35] VITALS: BP 162/80
== END 2017-06-09 14:12 | DRG 189 ==
LOC: ERH 06:58 → ERHI 08:42 → 1NO 08:42 → ENRESERV 09:23 → ENTRNSPT 11:02 → EDTRNSPT 11:42 → EDTRNSPTSTS 11:42 → 1NO 11:57 → CMPTRNSPT 12:17 → 1NO 05-28 10:22 → ENPENDDIS 06-09 12:01 → 1NO 06-09 14:12
PROVIDERS: Emergency Medicine; Internal Medicine; Internal Medicine Adolescent Medicine; Radiology Vascular & Interventional Radiology; Student in an Organized Health Care Education/Training Program
DX: J96.21 Acute and chronic respiratory failure with hypoxia (principal); N17.0 Acute kidney failure with tubular necrosis; I21.A1 Myocardial infarction type 2; I13.0 Hypertensive heart and chronic kidney disease with heart failure and stage 1 through stage 4 chronic kidney disease, or unspecified chronic kidney disease; I50.32 Chronic diastolic (congestive) heart failure; J11.1 Influenza due to unidentified influenza virus with other respiratory manifestations; E11.22 Type 2 diabetes mellitus with diabetic chronic kidney disease; E11.649 Type 2 diabetes mellitus with hypoglycemia without coma; B02.9 Zoster without complications; J44.9 Chronic obstructive pulmonary disease, unspecified; E11.8 Type 2 diabetes mellitus with unspecified complications; N18.3 Chronic kidney disease, stage 3 (moderate); Z99.81 Dependence on supplemental oxygen; Z79.4 Long term (current) use of insulin; E03.9 Hypothyroidism, unspecified; E66.9 Obesity, unspecified; Z68.37 Body mass index [BMI] 37.0-37.9, adult; I16.0 Hypertensive urgency; G47.33 Obstructive sleep apnea (adult) (pediatric); I25.10 Atherosclerotic heart disease of native coronary artery without angina pectoris; Z95.5 Presence of coronary angioplasty implant and graft; E78.5 Hyperlipidemia, unspecified; G89.29 Other chronic pain; F41.9 Anxiety disorder, unspecified; F32.9 Major depressive disorder, single episode, unspecified; I44.0 Atrioventricular block, first degree; R01.1 Cardiac murmur, unspecified
CPT/HCPCS: 1NP; 1NSP; 36415; 78582; 82436; 87040; 87070; 87086; 87804; 87804-59; 93005; 93010; 93306; 97110-GO; 97116-GO; 97161-GP; 97530-GO; 99291; A9540; A9558; J0360; J0456; J0696; J1644; J1815; J1940; J2920; J3490; J7040; J7512

== ENCOUNTER → 2017-07-13 | Day surgery (SDC) | payer OTHER ==
[~2017-07-13] VITALS: Ht 147.3 cm; Wt 81.2 kg
[~2017-07-13] MED LIST changes: +CARDURA2 M1 PO; +DULOXETINE HCL60 MG PO; +EDARBI80 M1 PO; +FISH OIL 1,0001 EACH PO; +ISOSORBIDE MON120 M1 PO; +LEVOCETIRIZINE D5 M1 PO; +LEVOTHYROXINE137 MCG PO; +PREDNISONE10 M2 PO; +PREDNISONE5 M1 PO
--- NOTE | 2017-07-13 08:42 | Operative Report ---
Operative/Inv Procedure Report Surgery Date: 07/13/17 Name of Procedure: Cataract extraction lens implantation right eye Pre-Operative Diagnosis: Age-related cataract right eye 20/60 vision Post-Operative Diagnosis: Same Estimated Blood Loss: none Surgeon/Communication Equipment Repairer: Jermaine GUTIERREZ,Brett Wren Anesthesia: local monitored anesthesi Complications: None Operative/Procedure Note Note: The patient was brought to the operating room standard monitoring equipment was attached the patient was prepped and draped in the usual fashion for intraocular surgery. A lid speculum was placed to retract the lids. The case was begun by making a temporal incision with a 2.4 mm keratome. The eye was stabilized with a Patel ring during this incision. 1 mL of non-preserved lidocaine was introduced into the anterior chamber to provide anesthesia. The anterior chamber was then filled and deepened with viscoelastic. A curvilinear capsulorrhexis was achieved using a 30-gauge needle and is a cystotome and capsulorrhexis was finished using a Utrata forceps. A second or paracentesis incision was made temporally with a 1 mm MVR blade. The lens was then hydrodissected with balanced salt solution and found to be rotatable. The lens was emulsified using phacoemulsification and a modified four-quadrant cracking technique. The residual cortical material was removed using automated irrigation and aspiration and as much of the anterior capsular rim was cleaned as well as possible. The posterior capsule was cleaned first with the automated machine on a low setting and then manually with a Pedro Pablo squeegee. The capsular bag was deepened with viscoelastic. The lens a Technis 1 24.0 Diopter placed into the bag under direct visualization and rotated so that the haptics were at 12 and 6:00. Viscoelastic was then removed from the eye by flushing it out and then by automated irrigation and aspiration. The eye was pressurized to a normal tone. 1/10 of a cc of cefuroxime solution was introduced into the anterior chamber to provide antibiotic prophylaxis. The wounds were sealed by hydrating the stroma adjacent to them and the eye was left at a proper tone after the wounds were checked and found not to be leaking. The lid speculum was removed from the orbit. Antibiotic and steroid drops were placed on the eye and then the eye was shielded. Monitoring equipment was removed from the patient and the patient was removed from the operative suite to the holding area. The patient tolerated the procedure well and will be seen in the office tomorrow.
== END ==
LOC: STS 00:36
DX: H25.9 Unspecified age-related cataract (principal); I10 Essential (primary) hypertension; E11.22 Type 2 diabetes mellitus with diabetic chronic kidney disease; N18.3 Chronic kidney disease, stage 3 (moderate); Z79.4 Long term (current) use of insulin; J44.9 Chronic obstructive pulmonary disease, unspecified; Z99.81 Dependence on supplemental oxygen; E07.9 Disorder of thyroid, unspecified
CPT/HCPCS: J2250; V2632

== ENCOUNTER 2017-07-22 16:11 | Inpatient (IN) | payer OTHER ==
[~2017-07-22] VITALS: Ht 147.3 cm; Wt 82.1 kg
[2017-07-22 17:06] LABS: ABSOLUTE BASOPHIL COUNT 0.1 /CUMM (0.0-0.2); ABSOLUTE EOSINOPHIL COUNT 0.6 /CUMM (0.0-0.7); ABSOLUTE GRANULOCYTE CT 6.1 /CUMM (1.4-6.5); ABSOLUTE LYMPH COUNT 1.8 /CUMM (1.2-3.4); ABSOLUTE MONOCYTE COUNT 0.9 /CUMM (0.10-0.60); BASOPHIL % 0.7 % (0.0-2.0); EOSINOPHIL % 6.3 % (0-5); GRANULOCYTE % 64.8 % (42.2-75.2); HEMATOCRIT 25.7 % (37-47); MEAN CORPUSCULAR HGB 29.2 PG (27.0-31.0); MEAN CORPUSCULAR HGB CONC 33.6 G/DL (33.0-37.0); PLATELET COUNT 208 /CUMM (130-400); RBC DISTRIBUTION WIDTH 13.3 % (11.5-14.5); RED BLOOD CELL CT 2.95 /CUMM (4.20-5.40); WHITE BLOOD CELL COUNT 9.4 /CUMM (4.8-10.8)
--- NOTE | 2017-07-22 18:14 | ED DYSPNEA/ASTHMA COMPLAINT ---
History of Present Illness General Chief Complaint: General Adult Stated Complaint: SENT BY FOR SOB Source: patient, family, old records Exam Limitations: no limitations Vital Signs & Intake/Output Vital Signs & Intake/Output Vital Signs Date Time Temp Pulse Resp B/P B/P Pulse O2 O2 Flow FiO2 Mean Ox Delivery Rate 07/24 1534 61 164/66 07/24 1506 98.6 61 20 164/66 100 Nasal 2.5L Cannula 07/24 1357 95 Nasal 2.0L Cannula 07/24 0930 Nasal Cannula 07/24 0929 64 148/76 07/24 0921 64 148/76 07/24 0919 64 148/76 07/24 0918 64 148/76 07/24 0619 98.7 64 20 148/76 94 Nasal 3.0L Cannula 07/24 0250 96 CPAP 07/24 0052 73 97 07/24 0050 98 Nasal 2.5L Cannula 07/23 2308 78 150/78 07/23 2255 98.6 70 22 132/54 95 Nasal 2.0L Cannula ED Intake and Output 07/24 0000 07/23 1200 Intake Total 490 240 Output Total Balance 490 240 Intake, Oral 490 240 Patient 175 lb 183 lb Weight Weight Reported by Patient Measurement Method Allergies Coded Allergies: povidone-iodine (From BETADINE) (RASH 04/11/17) ITCH PER ANTIBIOTIC ORDER SHEET OF 12/04/16 (SJS) soap (From BETADINE) (RASH 04/11/17) PARISH Inhibitors (Mild, COUGH 04/11/17) Reconcile Medications Albuterol Sulfate (Proair Hfa) 90 MCG HFA.AER.AD 1 PUF INH AD PRN ASTHMA ( Reported) Alpha Lipoic Acid 300 MG CAPSULE 2 CAP PO BID NEUROPATHIC PAIN (Reported) Amlodipine Besylate 5 MG TABLET 1 TAB PO DAILY BP (Reported) Aspirin (Ecotrin*) 81 MG TABLET.DR 1 TAB PO QPM HEART/BLOOD (Reported) Azilsartan Medoxomil (Edarbi) 80 MG TABLET 1 TAB PO DAILY BP (Reported) Bumetanide 1 MG TABLET 2 TAB PO BID WATER RETENTION (Reported) Carvedilol (Coreg) 25 MG TABLET 1 TAB PO BID HTN (Reported) Cholecalciferol (Vitamin D3) (Vitamin D) 1,000 UNIT TABLET 2 TAB PO DAILY VITAMIN SUPPORT (Reported) Difluprednate (Durezol) 0.05 % DROPS 1 GTT OD TID RIGHT EYE (Reported) Doxazosin Mesylate (Cardura) 2 MG TABLET 1 TAB PO BID BP (Reported) Duloxetine HCl 60 MG CAPSULE.DR 1 CAP PO DAILY NERVE PAIN (Reported) Ferrous Sulfate 325 MG (65 MG IRON) TABLET.DR 1 TAB PO DAILY ANEMIA Fluticasone/Salmeterol (Advair 250-50 Diskus) 1 EACH BLST.W.DEV 1 PUF INH BID ASTHMA (Reported) Hydralazine HCl 100 MG TABLET 1 TAB PO TID BP (Reported) Insulin Aspart (Novolog) 100 UNIT/ML VIAL DM (Reported) Insulin Detemir (Levemir) 100 UNIT/ML VIAL 20-30 UNITS SC QPM DM (Reported) Isosorbide Mononitrate (Isosorbide Mononitrate ER) 60 MG TAB.ER.24H 1 TAB PO DAILY HEART (Reported) Levocetirizine Dihydrochloride 5 MG TABLET 1 TAB PO QPM ALLERGIES (Reported) Levothyroxine Sodium (Synthroid) 125 MCG TABLET 1 TAB PO DAILY HYPOTHYROIDISM (Reported) [place]-3 Fatty Acids/Fish Oil (Fish Oil 1,000 MG Capsule) 340 MG-1,000 MG CAPSULE 1 CAP PO TID SUPPLEMENT (Reported) Rosuvastatin Calcium (Crestor) 20 MG TABLET 1 TAB PO QPM HYPERCHOLESTROLEMIA (Reported) Triage Note: 71 YO FEMALE SENT TO ER BY RENE ROMAN FOR EVAL OF SOB. PT STATES SHE HAS NEEDED TO USE HER OXYGEN AGAIN (2L LITERS CONTINUOUS) OVER THE LAST 3 WEEKS. STATES SHE WENT TO SEE SILVANA LÓPEZ TODAY WHO STATES SHE HEARD CRACKLES. PT DENIES SOB WHILE USING HER OXYGEN. DENIES CHEST PAIN. OXYGEN SATS 97% ON 2L OXYGEN. Triage Nurses Notes Reviewed? yes Onset: Gradual Duration: week(s):, constant, getting worse Timing: recent history Severity: moderate Activities at Onset: none Prior Episodes/Possible Cause: frequent episodes Associated Symptoms: DENIES HPI: 71-year-old female history of coronary artery disease, status post stents 2 in 2013, hypertension, hyperlipidemia, diabetes mellitus, chronic renal insufficiency, heart failure with preserved ejection fraction presents to the ER sent in by her primary care physician for evaluation complaining of progressively worsening shortness of breath. Patient is recently discharged from this hospital for the flu last month. She states that she is normally not O2 dependent however over the past few weeks she has had to titrate herself up now to 2-1/2 L of oxygen at all time. She has been monitoring her pulse ox at home and states with ambulation on 2 L it drops to 8889%. She saw her primary care physician today who sent her to the ER for further evaluation because they or crackles. The patient went to the infusion center yesterday at which time she was medicated with 80 mg of Lasix IV. Her director utilization management is Dr. Mtz. She denies chest pain cough fever chills. She does report her legs and been more swollen than normal. (Rangel Mendoza) Past History Travel History Traveled to [place] past 21 day No Medical History Any Pertinent Medical History? 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 SISTER (Pancreatic cancer). Hx Contributory? No (Rangel Mendoza) Review of Systems Review of Systems Constitutional: Reports: see HPI. Comments Review of systems: See HPI, All other systems negative. Constitutional, no chills no fever, HEENT: no sore throat no congestion Cardiovascular: No chest pain , no palpitation Skin: no rashes, no change in skin Respiratory: dyspnea chronic cough no sputum no hemoptysis GI: No nausea no vomiting, no diarrhea : No dysuria No hematuria, no frequency Muscle skeletal: No joint pain, no back pain Neurologic: , no headache Psych: No stress Heme/endocrine: No bruising Immunology: No lymphadenopathy (Rangel Mendoza) Physical Exam Physical Exam General Appearance: well developed/nourished Respiratory: chest non-tender, no respiratory distress Comments: Well-developed well-nourished person in no acute distress HEENT: Normal EENT exam; PERRL, EOMI, HEAD is atraumatic. moist mucous membranes. Neck: Supple, no lymphadenopathy, normal range of motion Back: Nontender, no CVA tenderness. Full range of motion Cardiovascular: Regular rate and rhythms no murmurs Respiratory: No respiratory distress. Patient speaking in full complete sentences. Diminished breath sounds bilaterally at the bases crackles noted to the right lung base Abdomen: Soft, nontender nondistended, no appreciable organomegaly, No ascites. Extremity: 2+ B/L edema, full range of motion of extremities, normal and equal pulses bilaterally, 5 out of 5 strength noted to bilateral upper and lower extremities Neuro: Alert oriented x3, motor sensory normal. There were no obvious focal neurologic abnormalities. Skin: No appreciable rash on exposed skin, skin is warm and dry. Psych: Mood and affect is normal, memory and judgment is normal. Core Measures ACS in differential dx? Yes CVA/TIA Diagnosis No Sepsis Present: No Sepsis Focused Exam Completed? No (Rebekah NICHOLE,Rangel) Progress Differential Diagnosis: asthma, AMI, bronchitis, CHF, COPD, pulmonary embolism, pneumothorax, unstable angina Plan of Care: Orders Procedure Date/time Status BASIC ELECTROLYTES PLUS BUN&CR 07/25 0600 Active THERAPIST ORDERS 07/24 005 Complete CONTIN. POSITIVE AIRWAY PRESS 07/24 0057 Complete Current Medications Sig/Larissa Start time Last Medication Dose Stop Time Status Admin Insulin Detemir 30 UNITS AT BEDTIME 07/24 2200 AC (Levemir) Levothyroxine Sodium 0.137 MG DAILY AC 07/24 0700 AC 07/24 (Synthroid) 0711 Atorvastatin Calcium 80 MG 1700 07/23 1700 AC 07/24 (Lipitor) 1535 Albuterol Sulfate 3 ML Q4 HRS NEEDED PRN 07/23 1300 AC (Proventil) Insulin Aspart 0 TIDAC/HS 07/23 1200 AC 07/24 (NovoLOG) 1732 Amlodipine Besylate 5 MG DAILY 07/23 1000 AC 07/24 (Norvasc) 0919 Cholecalciferol 1,000 IU DAILY 07/23 1000 AC 07/24 (Vitamin D) 0919 Duloxetine HCl 60 MG DAILY 07/23 1000 AC 07/24 (Cymbalta) 0921 Ferrous Sulfate 325 MG DAILY 07/23 1000 AC 07/24 (Feosol) 0924 Isosorbide 60 MG DAILY 07/23 1000 AC 07/24 Mononitrate 0921 (Imdur) Carvedilol 25 MG BID 07/22 2229 AC 07/24 (Coreg) 0918 Doxazosin Mesylate 2 MG BID 07/22 2229 AC 07/24 (Cardura) 0924 Fish Oil 1,050 MG BID 07/22 2229 AC 07/24 ([place]-3) 0926 Hydralazine HCl 100 MG TID 07/22 2229 AC 07/24 (Apresoline) 1534 Aspirin Buffered 81 MG QPM 07/22 2199 AC 07/24 (Ecotrin) 0056 Budesonide/ 2 PUF BID 07/22 2199 AC 07/24 Formoterol Fumarate 0916 (Symbicort) Bumetanide 2 MG BID 07/22 2199 AC 07/24 (Bumex) 0915 Heparin Sodium 5,000 UNIT Q8 07/22 2199 AC 07/24 (Porcine) 1533 Albuterol Sulfate 2 PUF Q4P PRN 07/22 2129 AC (Ventolin) Laboratory Tests 07/24/17 0610: Anion Gap 14, Estimated GFR 20 L, BUN/Creatinine Ratio 38.3 H Labs ordered old records reviewed patient medicated with Lasix 20 IV Solu-Medrol 125 IV patient's H&H is at her baseline, her creatinine is at her baseline there is no chest pain case discussed with Dr. Leon. PATIENT: JOSELYN DUARTE PRESENT AGE: 71 PATIENT ACCOUNT NO: [id number] : 45 LOCATION: [facility] ORDERING PHYSICIAN: Wan NICHOLE SERVICE DATE: 07/22/17 EXAM TYPE: RAD - XRY-CHEST XRAY, TWO VIEWS EXAMINATION: XR CHEST CLINICAL INFORMATION: Shortness of breath and rales. COMPARISON: None. TECHNIQUE: Frontal and lateral views of the chest. FINDINGS: The cardiac silhouette and central pulmonary vasculature are prominent. There are diffuse reticular markings increasing in severity towards the bases. Small pleural effusions. Overall appearance is consistent with mild interstitial edema. No lobar pneumonia. Nonobstructive gas pattern. Spinal electrode again noted. IMPRESSION: Interstitial edema and small effusions. DICTATED BY: Donell Varner MD DATE/TIME DICTATED:07/22/171806 VICE PRESIDENT SALES AND MARKETING:DEEP DATE/TIME TRANSCRIBED:07/22/171806 CONFIDENTIAL, DO NOT COPY WITHOUT APPROPRIATE AUTHORIZATION. <Electronically signed in Other Vendor System> SIGNED BY: Donell Varner MD 07/23/17 7118 Diagnostic Imaging: Viewed by Me: Radiology Read. Discussed w/RAD: Radiology Read. Initial ED EKG: normal intervals, normal p-waves, normal QRS complex, normal sinus rhythm (Rangel Mendoza) Departure Departure Time of Disposition: 1951 Disposition: STILL A PATIENT Condition: Stable Clinical Impression Primary Impression: Acute on chronic congestive heart failure Qualifiers: Heart failure type: unspecified Qualified Code: I50.9 - Heart failure, unspecified Secondary Impressions: COPD exacerbation, Pleural effusion Referrals: Jacinta Huang MD (PCP/Family) Departure Forms: Customer Survey General Discharge Information Admission Note Spoke With: Fabien Carpio MD Documentation of Exam: Documentation of any treatments & extenuating circumstances including Concerns Regarding Discharge (functional status, medication knowledge or non-compliance, living conditions, etc.) that warrant an admission rather than observation: Pulmonology cardiology consult trend labs IV diuresis respiratory treatments IV steroids telemetry monitoring premature discharge would BE medically harmful (Rangel Mendoza) PA/ELECTRICAL INSPECTOR Co-Sign Statement Statement: ED Attending supervision documentation- [X] I saw and evaluated the patient. I have also reviewed all the pertinent lab results and diagnostic results. I agree with the findings and the plan of care as documented in the PA's/ELECTRICAL INSPECTOR's documentation. Patient presents the request of her primary care physician shortness of breath and crackles on examination. Physical examination reveals a conversant patient with decreased breath sounds bilaterally and bilateral posterior crackles. [] I have reviewed the ED Record and agree with the PA's/ELECTRICAL INSPECTOR's documentation. [] Additions or exceptions (if any) to the PAs/ELECTRICAL INSPECTOR's note and plan are summarized below: [] (Carolyn GUTIERREZ,Jude Barros) Critical Care Note Critical Care Note Critical Care Time: non-applicable (Rangel Mendoza) 18.100 H, Free T4 1.30, CBC w Diff NO MAN DIFF REQ, RBC 2.95 L, MCV 87.0, MCH 29.2, MCHC 33.6, RDW 13.3, MPV 9.0, Gran % 64.8, Lymphocytes % 19.2 L, Monocytes % 9.0, Eosinophils % 6.3 H, Basophils % 0.7, Absolute Granulocytes 6.1, Absolute Lymphocytes 1.8, Absolute Monocytes 0.9 H, Absolute Eosinophils 0.6, Absolute Basophils 0.1 Microbiology 07/22 2035 LOWER RESP: Respiratory Culture - COLB 07/22 2035 LOWER RESP: Gram Stain - COLB 07/22 2022 NASOPHARYN: Influenza Virus A & B Rapid Smear - COMP Labs ordered old records reviewed patient medicated with Lasix 20 IV Solu-Medrol 125 IV patient's H&H is at her baseline, her creatinine is at her baseline there is no chest pain case discussed with Dr. Leon. PATIENT: JOSELYN DUARTE PRESENT AGE: 71 PATIENT ACCOUNT NO: [id number] : 45 LOCATION: [facility] ORDERING PHYSICIAN: Wan NICHOLE SERVICE DATE: 07/22/17 EXAM TYPE: RAD - XRY-CHEST XRAY, TWO VIEWS EXAMINATION: XR CHEST CLINICAL INFORMATION: Shortness of breath and rales. COMPARISON: None. TECHNIQUE: Frontal and lateral views of the chest. FINDINGS: The cardiac silhouette and central pulmonary vasculature are prominent. There are diffuse reticular markings increasing in severity towards the bases. Small pleural effusions. Overall appearance is consistent with mild interstitial edema. No lobar pneumonia. Nonobstructive gas pattern. Spinal electrode again noted. IMPRESSION: Interstitial edema and small effusions. DICTATED BY: Donell Varner MD DATE/TIME DICTATED:07/22/171806 VICE PRESIDENT SALES AND MARKETING:DEEP DATE/TIME TRANSCRIBED:07/22/171806 CONFIDENTIAL, DO NOT COPY WITHOUT APPROPRIATE AUTHORIZATION. <Electronically signed in Other Vendor System> SIGNED BY: Donell Varner MD 07/23/17 0745 Diagnostic Imaging: Viewed by Me: Radiology Read. Discussed w/RAD: Radiology Read. Initial ED EKG: normal intervals, normal p-waves, normal QRS complex, normal sinus rhythm Departure Departure Time of Disposition: 1951 Disposition: STILL A PATIENT Condition: Stable Clinical Impression Primary Impression: Acute on chronic congestive heart failure Qualifiers: Heart failure type: unspecified Qualified Code: I50.9 - Heart failure, unspecified Secondary Impressions: COPD exacerbation, Pleural effusion Referrals: Jacinta Huang MD (PCP/Family) Departure Forms: Customer Survey General Discharge Information Admission Note Spoke With: Fabien Carpio MD Documentation of Exam: Documentation of any treatments & extenuating circumstances including Concerns Regarding Discharge (functional status, medication knowledge or non-compliance, living conditions, etc.) that warrant an admission rather than observation: Pulmonology cardiology consult trend labs IV diuresis respiratory treatments IV steroids telemetry monitoring premature discharge would BE medically harmful Critical Care Note Critical Care Note Critical Care Time: non-applicable
--- NOTE | 2017-07-22 20:12 | History & Physical ---
Brooklynn Conti MD 07/22/172010: General Information and HPI MD Statement: I have seen and personally examined JOSELYN DUARTE and documented this H&P. The patient is a 71 year old F who presented with a patient stated chief complaint of [shortness of breath]. Source of Information: patient, family Exam Limitations: no limitations History of Present Illness: 71-year-old female with past medical history of coronary artery disease status post 2 stent [last placed in 2013], asthma, hypertension, hyperlipidemia, diabetes, stage III kidney disease, hypothyroidism, congestive heart failure came to ER for progressive shortness of breath. Patient went to her primary care physician today for the same complaints she was referred here. Patient was Recently admitted for influenza in May 2017 to [facility]. Patient also treated for hypertensive urgency during the same admission. After discharge from the hospital patient she was sent to short-term rehabilitation for 5 days. She went home without any home oxygen. Eventually she developed shortness of breath for the past 2-3 weeks again requiring oxygen initially was 1 L and now it is increased to 2-3 L. According to the patient she has difficulty in breathing both at rest and exertion. This shortness of breath is not associated with chest pain, nausea, vomiting, palpitation, abdominal pain, weakness, altered sensation, orthopnea. Patient goes to congestive heart failure clinic regularly. Last event was yesterday and she was given 80 mg of IV Lasix. Patient states that she makes moderate amount of urine in spite of the IV Lasix. Her clinical outcomes manager is Dr. Mtz. Allergies/Medications Allergies: Coded Allergies: povidone-iodine (From BETADINE) (RASH 04/11/17) ITCH PER ANTIBIOTIC ORDER SHEET OF 12/04/16 (SJS) soap (From BETADINE) (RASH 04/11/17) PARISH Inhibitors (Mild, COUGH 04/11/17) Home Med list Albuterol Sulfate (Proair Hfa) 90 MCG HFA.AER.AD 1 PUF INH AD PRN ASTHMA ( Reported) Alpha Lipoic Acid 300 MG CAPSULE 2 CAP PO BID NEUROPATHIC PAIN (Reported) Amlodipine Besylate 5 MG TABLET 1 TAB PO DAILY BP (Reported) Aspirin (Ecotrin*) 81 MG TABLET.DR 1 TAB PO QPM HEART/BLOOD (Reported) Azilsartan Medoxomil (Edarbi) 80 MG TABLET 1 TAB PO DAILY BP (Reported) Bumetanide 1 MG TABLET 2 TAB PO BID WATER RETENTION (Reported) Carvedilol (Coreg) 25 MG TABLET 1 TAB PO BID HTN (Reported) Cholecalciferol (Vitamin D3) (Vitamin D) 1,000 UNIT TABLET 2 TAB PO DAILY VITAMIN SUPPORT (Reported) Difluprednate (Durezol) 0.05 % DROPS 1 GTT OD TID RIGHT EYE (Reported) Doxazosin Mesylate (Cardura) 2 MG TABLET 1 TAB PO BID BP (Reported) Duloxetine HCl 60 MG CAPSULE.DR 1 CAP PO DAILY NERVE PAIN (Reported) Ferrous Sulfate 325 MG (65 MG IRON) TABLET.DR 1 TAB PO DAILY ANEMIA Fluticasone/Salmeterol (Advair 250-50 Diskus) 1 EACH BLST.W.DEV 1 PUF INH BID ASTHMA (Reported) Hydralazine HCl 100 MG TABLET 1 TAB PO TID BP (Reported) Insulin Aspart (Novolog) 100 UNIT/ML VIAL DM (Reported) Insulin Detemir (Levemir) 100 UNIT/ML VIAL 20-30 UNITS SC QPM DM (Reported) Isosorbide Mononitrate (Isosorbide Mononitrate ER) 60 MG TAB.ER.24H 1 TAB PO DAILY HEART (Reported) Levocetirizine Dihydrochloride 5 MG TABLET 1 TAB PO QPM ALLERGIES (Reported) Levothyroxine Sodium (Synthroid) 125 MCG TABLET 1 TAB PO DAILY HYPOTHYROIDISM (Reported) Healy-3 Fatty Acids/Fish Oil (Fish Oil 1,000 MG Capsule) 340 MG-1,000 MG CAPSULE 1 CAP PO TID SUPPLEMENT (Reported) Rosuvastatin Calcium (Crestor) 20 MG TABLET 1 TAB PO QPM HYPERCHOLESTROLEMIA (Reported) Compliance With Home Meds: GOOD Past History Travel History Traveled to [place] past 21 day No Medical History Neurological: vertigo EENT: SLEEP APNEA Cardiovascular: CHF, hypertension Respiratory: asthma, pneumonia, SLEEP APNEA NOCTURNAL CPAP Gastrointestinal: NONE Hepatic: NONE Renal: CKD 3 Musculoskeletal: SPINAL STENOSIS PAIN STIMULATOR Psychiatric: anxiety, depression Endocrine: diabetes, HYPOTHYROID Blood Disorders: anemia Cancer(s): NONE FACILITY SALES AND ADMIN/Reproductive: NONE History of MRSA: No History of VRE: No History of CDIFF: No Influenza Vaccine: 03/31/17 Surgical History Surgical History: Parathyroidectomy carpal tunnel surgery trigger finger surgery Past Family/Social History Family History Relations & Conditions if any MOTHER (Diabetes mellitus, from diabetic complications). SISTER (Pancreatic cancer). Psychosocial History Where do you live? Home Who Do You Live With? spouse Services at Home: None Primary Language: Irish Smoking Status: Never Smoked ETOH Use: denies use Functional Ability ADLs Independent: dressing, eating, toileting, bathing. Ambulation: cane, Patient used a cane when outside the house but ambulates independently indoors. IADLs Independent: finances, food prep, telephone, medication admin. Needs Assist: shopping, housework, transportation. Review of Systems Review of Systems Constitutional: Reports: no symptoms. Cardiovascular: Reports: no symptoms. Respiratory: Reports: short of breath. GI: Reports: no symptoms. Genitourinary: Reports: no symptoms. Musculoskeletal: Reports: no symptoms. Skin: Reports: no symptoms. Neurological/Psychological: Reports: no symptoms. Exam & Diagnostic Data Last 24 Hrs of Vital Signs/I&O Vital Signs Date Time Temp Pulse Resp B/P B/P Pulse O2 O2 Flow FiO2 Mean Ox Delivery Rate 07/23 0042 64 95 07/22 2304 98.5 70 18 152/72 07/22 2304 98.5 70 18 152/72 07/22 2109 95 Nasal 2.0L Cannula 07/22 1958 98.5 70 18 152/72 97 Room Air Room Air 07/22 1625 98.6 64 18 169/75 97 Nasal 2.0L Cannula Intake & Output 07/23 0800 07/23 0000 07/22 1600 Intake Total 120 Output Total Balance 120 Intake, Oral 120 Patient 183 lb Weight Weight Reported by Patient Measurement Method Physical Exam General Appearance Alert, Oriented X3, Cooperative, No Acute Distress HEENT PERRLA, EOMI Cardiovascular Normal S1, Normal S2, No Murmurs Lungs bilateral faint crackles Abdomen No Tenderness, obese Neurological Strength at 5/5 X4 Ext, Normal Tone, Sensation Intact Extremities bilateral 1+ pitting pedal edema. Vascular Normal Pulses Last 24 Hrs of Labs/Jose Alejandro: Laboratory Tests 07/22/17 2253: Troponin I 0.02 07/22/17 1632: Anion Gap 13, Estimated GFR 26 L, BUN/Creatinine Ratio 38.4 H, Glucose 139 H, Calcium 9.4, Iron 44, TIBC 352, Ferritin 50.0, Total Bilirubin 0.5, AST 13 L, ALT 26, Alkaline Phosphatase 66, Troponin I 0.02, Ifn-K-Kmfitocehgb Pept 4500 H , Total Protein 6.4, Albumin 3.8, Globulin 2.6, Albumin/Globulin Ratio 1.5, TSH 18.100 H, Free T4 1.30, CBC w Diff NO MAN DIFF REQ, RBC 2.95 L, MCV 87.0, MCH 29.2, MCHC 33.6, RDW 13.3, MPV 9.0, Gran % 64.8, Lymphocytes % 19.2 L, Monocytes % 9.0, Eosinophils % 6.3 H, Basophils % 0.7, Absolute Granulocytes 6.1, Absolute Lymphocytes 1.8, Absolute Monocytes 0.9 H, Absolute Eosinophils 0.6, Absolute Basophils 0.1 Microbiology 07/22 2035 LOWER RESP: Respiratory Culture - COLB 07/22 2035 LOWER RESP: Gram Stain - COLB 07/22 2022 NASOPHARYN: Influenza Virus A & B Rapid Smear - COMP Diagnostic Data EKG Results Heart rate 64, MI interval 224, QTC 475, sinus rhythm Assessment/Plan Assessment: 71-year-old female with past medical history of coronary artery disease status post 2 stent [last placed in 2013], asthma, hypertension, hyperlipidemia, obstructive sleep apnea on CPAP, spinal stenosis [status post nerve stimulator] diabetes, stage III kidney disease, hypothyroidism, congestive heart failure came to ER for progressive shortness of breath. Admission vitals Temperature 98.6, pulse rate 64, respiratory rate 18, blood pressure 169/75, saturation 97 on 2 L via nasal cannula Admission labs WBC 9.4, hemoglobin 8.6, hematocrit 25.7, platelet count 203, influenza-negative , proBNP 4500, TSH-18.1oo, BUN 73, creatinine 1.9. 05/29/2017 Echocardiogram Ejection fraction 70%, pulmonary artery systolic pressure 71 ED treatment IV methylprednisone, Lasix 40 mg IV once Assessment and plan 1. Shortness of breath-most likely secondary to congestive heart failure We will admit the patient in telemetry. Serial troponin and EKG. IV Lasix to reduce the volume overload. Cardiology consult and echocardiogram in a.m. Patient is on bumetanide 2 mg twice a day and was also getting IV Lasix at the CHF clinic. We will continue the same. Strict I's and O's, daily weights. 2. Hypertension-patient is on amlodipine 5 mg, Edarbi 80 mg daily [patient will bring her home medication tomorrow], carvedilol 25 mg twice a day, doxazosin 2 mg twice a day, hydralazine 100 mg 3 times a day. Patient was admitted in the past for hypertensive urgency. Today her blood pressure is 150/ 72. We will continue monitoring her blood pressure. 3. Hypothyroidism- pt is on Synthyroid 125 g. According to the patient she is to take one 37 g. Her TSH today is 18.100. We will get endocrinology consult to guide us with the hypothyroidism management. We will continue rest of her home medication. -Full code -Diet Heart Healthy Diet As Ranked By This Provider Problem List: 1. Hypertension 2. Hypertensive urgency 3. Acute on chronic congestive heart failure 4. Chronic kidney disease 5. Diabetes Core Measures/Misc (02/21) Acute Coronary Syndrome ACS Diagnosis: No Congestive Heart Failure Congestive Heart Failure Diagnosis Yes Last Known EF % 70 Cerebrovascular Accident CVA/TIA Diagnosis: No VTE (View Protocol) VTE Risk Factors Age>40 No Mechanical VTE Prophylaxis d/t Other No VTE Pharm Prophylaxis d/t Other Sepsis (View protocol) Sepsis Present: No Melisa,Radha 07/22/172024: Resident Review Statement Resident Statement: examined this patient, discussed with senior internet sales consultant, agreed with senior internet sales consultant, discussed with family, reviewed EMR data (avail), discussed with nursing , discussed with case mgmt, reviewed images, amended to note Other Findings: 71-year-old female with a past medical history of coronary artery disease status post stents 2 in 2013, hypertension, asthma, CHF with preserved EF, CKD, diabetes, hypothyroidism who was sent to the ER by her primary care physician for evaluation of shortness of breath. According to the patient she was admitted at [facility] back in April for pneumonia and was discharged for the first time on 2 L of oxygen via nasal cannula. States that she was never really came off the supplemental oxygen and ended up getting readmitted in May at which time she was diagnosed with flu. She states that she was discharged to [facility] rehabilitation on June 08 and was discharged home from the rehabilitation on June 15. She states she had been doing well since up until about 2-3 weeks ago when she started to experience worsening shortness of breath on exertion. She states that she has been feeling winded even if she walks from the bedroom to her bathroom and back. Of note she has been going to CHF clinic and received 80 mg IV of Lasix on a weekly basis. She states that she put out quite a good amount of urine every time she was administered Lasix. Patient denies any chest discomfort, palpitations, lightheadedness, dizziness, abdominal distention, lower extremity edema. She denies any headache, recent upper respiratory tract infection, nausea, vomiting, diarrhea, constipation. Denies any fevers or chills. She does endorse using 2 pillows behind her back at baseline which has not changed within the past few years. She denies any PND. Of note she does endorse feeling better if she sits upright versus lying down flat. She also endorses cough that is nonproductive and has been chronic for her with no recent worsening. She states that she saw Dr. Jackman about 3-4 weeks ago and had an EKG done at his office and reports that everything at that time was within normal limits. Of note her symptoms started after she had seen Dr. Jackman in the office. She is not normally on oxygen at home however had been on 2-2-1/2 L of oxygen at all times. Her saturations on ambulation on 2 L dropped to 88%. She saw her primary care physician to send you further evaluation as she was found to have crackles on her exam. Vitals on admission blood pressure 169/75, respiratory rate of 18, pulse 64, afebrile saturating 97% 2 L of oxygen via nasal cannula. On physical exam she is alert, oriented 3 and in no acute distress lying comfortably in bed. HEENT revealed PERRLA, dry mucous membranes. Examination of the neck did not reveal an elevated JVD or sclerotic lymphadenopathy. Cardiovascular exam pertinent for normal S1, S2, no murmurs rubs or gallops appreciated. Auscultation of the chest revealed very mild bibasal crackles more so on the right side. On abdominal exam was benign with abdomen soft, nontender , nondistended with normal bowel sounds in all 4 quadrants. Examination of the lower extremities revealed 1-2+ bilateral pitting edema. Neuro exam was grossly unremarkable. Labs pertinent for normal with a thin count of 9400, normocytic anemia with an H &H of 8.6/35.7 and a platelet count of 208,000. Chemistries pertinent for sodium of 140, potassium 3.9, bicarbonate of 30, anion gap of 13, BUN 73 and a creatinine of 1.9. Serum glucose 139. LFTs unremarkable with an AST/ALT of 13/ 26, alkaline phosphatase of 66, total bili 0.5 with a proBNP of 4500. UA not receive Chest x-ray revealed.... EKG revealed normal sinus rhythm first degree AV block normal axis, no ST-T depression, poor R-wave progression. Last echocardiogram was done on 06/01/2017 which showed no diastolic filling pattern with an EF of 70%, moderate left atrial enlargement and severe pulmonary hypertension. In the ER she received 6 units of subcutaneous NovoLog insulin, Lasix 20 mg IV 1 and Solu-Medrol 125 mg IV 1. Assessment and plan Admit patient to telemetry #Dyspnea on exertion Most likely secondary to CHF exacerbation Will trend troponins and EKG to rule out ACS at 10 PM and 4 AM Echocardiogram in a.m. Cardiology consult with Dr. Jackman in a.m. Meanwhile we'll continue diuresis with 2 mg of IV Bumex Continue to monitor I's and O's and daily weights #Coronary artery disease Continue aspirin 81 mg daily, Lipitor 80 mg daily, Coreg 25 mg twice a day by mouth, hydralazine 100 mg 3 times a day by mouth, endorse 60 mg daily Patient is on a Edarbi 80 mg by mouth daily #Hypothyroidism Consider increasing levothyroxine to 137 from 125mcg daily Follow-up TSH was 18 from 06/30/2017 was 14. Patient states that her levothyroxine was recently decreased from 137-[address] crawford Endocrinology follow-up as an outpatient. #Diabetic neuropathy Continue on duloxetine #Hypertension Continue on doxazosin 2 mg daily, amlodipine 5mg daily. - DVT prophylaxis Heparin 5000 international units 3 times a day subcutaneous Diet CHF CODE STATUS Full code Fabien Carpio 07/23/17 0427: Attending MD Review Statement Attending Statement Attending MD Statement: examined this patient, discuss w/resident/PA/PATIENT CASE MANAGER, agreed w/resident/PA/PATIENT CASE MANAGER, reviewed EMR data (avail), reviewed images, amended to note Attending Assessment/Plan: CC: Sent by physician for persistent shortness of breath PMH: CAD S/P 2 stents for your back, HTN, HLD, DM, CKD, HFpEF, anemia, asthma, SUSIE on CPAP, spinal stenosis S/P nerve stimulator, parathyroidectomy Patient was initially admitted from Apr 11 - April 19 for pneumonia, was discharged on oxygen. Then patient came back again on May 27, was treated for influenza, acute on chronic heart failure and hypertensive urgency, at that time she was discharged to [facility] on 3 L nasal cannula. While in [facility] heart oxygen was tapered off and at home initially she was not requiring oxygen but eventually she noticed to have progressive worsening of shortness of breath and requiring progressively increased oxygen since last 2 -3 weeks. She was noticing shortness of breath on exertion and at rest, could not lie down flat, requiring 2 pillows, progressive worsening of leg swelling. She was following up with the heart failure clinic, most recent visit a day before where she received IV 80 mg Lasix. Because of this constellation of symptoms with increased shortness of breath and worsening pedal edema she went to follow-up with her physician who noticed crackles on auscultation and suggested her to go to ER. Patient states that even though she lost 2 pounds weight since the dose of Lasix, urinating but not as expected, her symptoms of shortness of breath did not resolve. She denies any chest pain, chest tightness, worsening cough or expectoration, fever or chills, flulike symptoms, nausea, vomiting, abdominal pain or urinary symptoms, any dizziness or passing out. Vitals: Afebrile, pulse in 60s, RR 18, blood pressure 169/75, saturating 97% on 2 L nasal cannula On exam: A O 3, cooperative, no acute distress, neck supple, JVD mildly elevated, no lymphadenopathy, mucosa moist, no focal neurological deficit, significant dependent edema, no obvious skin rashes or inflammation CVS: S1-S2, RRR, parasternal systolic murmur. RS: Bilateral crackles in all lung kern. Abdomen: Soft, NT, ND, bowel sounds present. Assessment and plan 71 year old female with multiple comorbidities presented in ER for gradual worsening of shortness of breath over last 2-3 weeks and dependent edema. She appears refractory to outpatient treatment for diuresis and even with the treatment at heart failure clinic. She may be developing diuretic resistance, consider adding HCTZ or metalozone. Her HTN may be uncontrolled outpatient which may be contributing to the problem. Acute on chronic heart failure is evident by crackles on auscultation, mildly elevated JVD, pedal edema, and CXR findings. No acute ECG changes or rise in Troponin. + Acute on chronic HFpEF + Hx of CAD S/P 2 stents for your back, HTN, HLD, DM, CKD, HFpEF, anemia, asthma , SUSIE on CPAP, spinal stenosis S/P nerve stimulator, parathyroidectomy - Admit to telemetry - Continuous telemetry monitoring - Continue O2 by nasal cannula - IV bumetanide 2 mg twice a day - Strict I's and O's - Daily weights - Serial troponin and EKGs - 2-D echo in a.m. - Cardiology consult in a.m. - DVT prophylaxis - Continue sliding scale insulin, continue rest of her home medications
[2017-07-22] MEDS ORDERED: SYNTHROID125 MCG PO ×2 (20:19→21:29)
[2017-07-22] MEDS ORDERED: DUREZOL5 ML OD (20:20)
[2017-07-23 04:14] LABS: ABSOLUTE BASOPHIL COUNT 0 /CUMM (0.0-0.2); ABSOLUTE EOSINOPHIL COUNT 0 /CUMM (0.0-0.7); ABSOLUTE GRANULOCYTE CT 7.9 /CUMM (1.4-6.5); ABSOLUTE LYMPH COUNT 0.8 /CUMM (1.2-3.4); ABSOLUTE MONOCYTE COUNT 0.1 /CUMM (0.10-0.60); BASOPHIL % 0.2 % (0.0-2.0); EOSINOPHIL % 0.3 % (0-5); HEMATOCRIT 24.7 % (37-47); MEAN CORPUSCULAR HGB 28.9 PG (27.0-31.0); MEAN CORPUSCULAR HGB CONC 33.3 G/DL (33.0-37.0); MEAN CORPUSCULAR VOLUME 86.7 FL (81.0-99.0); MEAN PLATELET VOLUME 8.9 FL (7.4-10.4); RED BLOOD CELL CT 2.85 /CUMM (4.20-5.40); WHITE BLOOD CELL COUNT 8.8 /CUMM (4.8-10.8)
--- NOTE | 2017-07-23 04:28 | Admission Certification ---
Admission Certification Certification Statement - As attending physician, I certify that at the time of - admission, based on clinical presentation, severity of - symptoms, need for further diagnostic testing and - therapeutic interventions, and risk of adverse outcomes - without in-hospital treatment, in my clinical assessment, - this patient requires an acute hospital stay for a minimum - of two nights or longer. I have also considered psychsocial - factors such as support system, advanced age, financial - issues, cognitive issues, and failed out-patient treatments, - past re-admission history, safety of patient, and lack of - compliance as applicable. Specific rationale supporting this admission is: acute on chronic HFpEF
[2017-07-23 04:43] LABS: GRANULOCYTE % 89.7 % (42.2-75.2); PLATELET COUNT 180 /CUMM (130-400)
--- NOTE | 2017-07-23 07:27 | PN- Housestaff ---
Anna Marie GUTIERREZ,[facility] 07/23/17 0727: Subjective Follow-up For: Acute on chronic CHF Subjective: Patient reports shortness of breath with leg swelling and chronic dry cough but denies any chest pain, palpitations , lightheaded and dizziness or fever/chills. Review of Systems Constitutional: Reports: no symptoms. EENTM: Reports: no symptoms. Cardiovascular: Reports: peripheral edema. Respiratory: Reports: cough, short of breath. Gastrointestinal: Reports: no symptoms. Genitourinary: Reports: no symptoms. Musculoskeletal: Reports: no symptoms. Skin: Reports: no symptoms. Neurological/Psychological: Reports: no symptoms. Hematologic/Endocrine: Reports: no symptoms. Immunologic/Allergic: Reports: no symptoms. Objective Last 24 Hrs of Vital Signs/I&O Vital Signs Date Time Temp Pulse Resp B/P B/P Pulse O2 O2 Flow FiO2 Mean Ox Delivery Rate 07/23 1551 98.9 69 18 144/69 99 Nasal 2.5L Cannula 07/23 1325 98.1 71 18 165/69 99 Nasal 2.0L Cannula 07/23 1249 Nasal 2.0L Cannula 07/23 1134 72 180/74 07/23 1134 72 180/74 07/23 1134 72 180/74 07/23 1134 72 180/74 07/23 1043 98.4 72 18 180/74 93 07/23 0848 98.0 70 18 178/74 93 07/23 0843 Nasal 2.0L Cannula 07/23 0643 96.7 71 18 194/77 98 CPAP 2.0L 07/23 0622 67 97 07/23 0042 64 95 07/22 2304 98.5 70 18 152/72 07/22 2304 98.5 70 18 152/72 07/22 2109 95 Nasal 2.0L Cannula 07/22 1958 98.5 70 18 152/72 97 Room Air Room Air 07/22 1625 98.6 64 18 169/75 97 Nasal 2.0L Cannula Intake & Output 07/23 1600 07/23 0800 07/23 0000 Intake Total 480 120 Output Total Balance 480 120 Intake, Oral 480 120 Patient 183 lb 183 lb Weight Weight Reported by Patient Reported by Patient Measurement Method Physical Exam General Appearance: Alert, Oriented X3, Cooperative, No Acute Distress Skin: No Rashes, No Breakdown Neck: Supple, No JVD Cardiovascular: Regular Rate, Normal S1, Normal S2 Lungs: crackles bilateral lung bases, wheezes bilaterally Abdomen: Normal Bowel Sounds, Soft, No Tenderness Extremities: No Clubbing, No Cyanosis, +1 pitting edema Current Medications: Current Medications Sig/Larissa Start time Last Medication Dose Route Stop Time Status Admin Albuterol Sulfate 3 ML Q4 HRS NEEDED PRN 07/23 1300 AC INH Albuterol Sulfate 2 PUF Q4P PRN 07/22 2130 AC INH Amlodipine Besylate 0 .STK-MED ONE 07/23 1123 DC PO Amlodipine Besylate 5 MG DAILY 07/23 1000 AC 07/23 PO 1134 Aspirin Buffered 81 MG QPM 07/22 2200 AC 07/22 PO 2304 Atorvastatin Calcium 80 MG 1700 07/23 1700 AC PO Brimonidine Tartrate 1 GTT TID 07/22 2200 AC 07/22 OPH 2304 Budesonide/ 2 PUF BID 07/22 2200 AC 07/23 Formoterol Fumarate INH 1201 Bumetanide 2 MG BID 07/22 2200 AC 07/23 IV 1134 Carvedilol 25 MG BID 07/22 2230 AC 07/23 PO 1134 Cholecalciferol 1,000 IU DAILY 07/23 1000 AC 07/23 PO 1134 Doxazosin Mesylate 2 MG BID 07/22 2230 AC 07/23 PO 1134 Duloxetine HCl 60 MG DAILY 07/23 1000 AC 07/23 PO 1134 Ferrous Sulfate 325 MG DAILY 07/23 1000 AC 07/23 PO 1134 Fish Oil 1,050 MG BID 07/22 2230 AC 07/23 PO 1134 Furosemide 0 .STK-MED ONE 07/22 202 DC IV Furosemide 20 MG ONCE ONE 07/22 1830 DC 07/22 IV 07/22 1831 2104 Heparin Sodium 0 .STK-MED ONE 07/23 0629 DC (Porcine) .ROUTE Heparin Sodium 5,000 UNIT Q8 07/22 2200 AC 07/23 (Porcine) SC 1408 Hydralazine HCl 100 MG TID 07/22 2230 AC 07/23 PO 1134 Insulin Aspart 0 TIDAC/HS 07/23 1200 AC 07/23 SC 1230 Insulin Aspart 0 TIDAC 07/23 0800 DC 07/23 SC 0743 Insulin Aspart 6 UNITS ONCE ONE 07/22 1900 DC 07/22 SC 07/22 1901 2030 Insulin Detemir 25 UNITS AT BEDTIME 07/22 2200 AC 07/22 SC 2304 Isosorbide 60 MG DAILY 07/23 1000 AC 07/23 Mononitrate PO 1134 Levothyroxine Sodium 0.137 MG DAILY AC 07/24 0700 AC PO Levothyroxine Sodium 0.125 MG DAILY AC 07/23 0700 DC 07/23 PO 0633 Methylprednisolone 0 .STK-MED ONE 07/22 2023 DC .ROUTE Methylprednisolone 125 MG ONCE ONE 07/22 1830 DC 07/22 IV 07/22 1830 210 Last 24 Hrs of Lab/Jose Alejandro Results Last 24 Hrs of Labs/Mics: Laboratory Tests 07/23/17 1143: Urinalysis LIGHT H, Urine Color YEL, Urine Clarity CLEAR, Urine pH 6.0, Ur Specific [place] 1.025, Urine Protein 100 H, Urine Ketones NEG, Urine Nitrite NEG, Urine Bilirubin NEG, Urine Urobilinogen 0.2, Ur Leukocyte Esterase NEG, Ur Microscopic SEDIMENT EXAMINED, Urine RBC 1-3, Urine WBC 3-5 H, Ur Epithelial Cells FEW, Urine Bacteria FEW H, Hyaline Casts 10-15 H, Urine Hemoglobin NEG, Urine Glucose NEG 07/23/17 0406: Anion Gap 14, Estimated GFR 22 L, BUN/Creatinine Ratio 35.5 H, Troponin I 0.02 , CBC w Diff NO MAN DIFF REQ, RBC 2.85 L, MCV 86.7, MCH 28.9, MCHC 33.3, RDW 14.0, MPV 8.9, Gran % 89.7 H, Lymphocytes % 8.7 L, Monocytes % 1.1 L, Eosinophils % 0.3, Basophils % 0.2, Absolute Granulocytes 7.9 H, Absolute Lymphocytes 0.8 L, Absolute Monocytes 0.1, Absolute Eosinophils 0, Absolute Basophils 0 07/22/17 2253: Troponin I 0.02 07/22/17 1632: Anion Gap 13, Estimated GFR 26 L, BUN/Creatinine Ratio 38.4 H, Glucose 139 H, Calcium 9.4, Iron 44, TIBC 352, Ferritin 50.0, Total Bilirubin 0.5, AST 13 L, ALT 26, Alkaline Phosphatase 66, Troponin I 0.02, Byy-[id number]-[id number] Pept 4500 H , Total Protein 6.4, Albumin 3.8, Globulin 2.6, Albumin/Globulin Ratio 1.5, TSH 18.100 H, Free T4 1.30, CBC w Diff NO MAN DIFF REQ, RBC 2.95 L, MCV 87.0, MCH 29.2, MCHC 33.6, RDW 13.3, MPV 9.0, Gran % 64.8, Lymphocytes % 19.2 L, Monocytes % 9.0, Eosinophils % 6.3 H, Basophils % 0.7, Absolute Granulocytes 6.1, Absolute Lymphocytes 1.8, Absolute Monocytes 0.9 H, Absolute Eosinophils 0.6, Absolute Basophils 0.1 Microbiology 07/22 2035 LOWER RESP: Respiratory Culture - CAN Cancelled: SPECIMEN NOT RECEIVED IN LABORATORY 07/22 2035 LOWER RESP: Gram Stain - CAN Cancelled: SPECIMEN NOT RECEIVED IN LABORATORY 07/22 2022 NASOPHARYN: Influenza Virus A & B Rapid Smear - COMP Assessment/Plan Assessment: 71-year-old female with a past medical history of coronary artery disease status post stents 2 in 2013, hypertension, asthma, CHF with preserved EF, CKD, diabetes, hypothyroidism who was sent to the ER by her primary care physician for evaluation of shortness of breath. #Dyspnea on exertion - Most likely secondary to CHF exacerbation - Troponins and EKG 3 negative. - Echocardiogram pending. - Appreciate cardiology recommendations. Suggest continuing IV Bumex 2 mg twice a day. Continue to monitor I's and O's and daily weights #Coronary artery disease - Continue aspirin, Lipitor, Coreg, hydralazine and endorse #Hypothyroidism - Appreciate endocrinology recommendations. - Increase levothyroxine to 137 MCG daily - Repeat TFTs in a week. #Diabetic neuropathy - Continue on duloxetine #Hypertension - Continue on doxazosin 2 mg daily, amlodipine 5mg daily. - Patient is on a Edarbi 80 mg by mouth daily, not available in our pharmacy, patient brought his own medication from home. DVT prophylaxis; subcutaneous heparin Patient is full code Problem List: 1. CHF (congestive heart failure) Pain Ratin Pain Location: None Pain Goal: Remain pain free Pain Plan: None Tomorrow's Labs & Rationales: BEP(on Bumex) Rita Villavicencio MD 07/23/17 1445: Attending Review Statement Attending Statement Attending MD Statement: examined this patient, discuss w/resident/PA/PAINT PREP TECHNICIAN, agreed w/resident/PA/PAINT PREP TECHNICIAN, reviewed EMR data (avail), discussed with nursing, discussed with case mgmt, reviewed images Attending Assessment/Plan: 71-year-old female multiple medical problems including CKD with GFR in the 20s, diastolic heart failure, coronary artery disease, hypertension, diabetes and obstructive sleep apnea who is here with acute diastolic heart failure. She has been going to the CHF clinic regularly and getting IV Lasix so this appears to be resistant to furosemide. Overnight team converted her to Bumex and she is on 2 mg IV twice a day. We'll continue the current dose, appreciate cardiology eval, keep a close watch on the BUN and creatinine given the CKD with the diuresis and will follow closely.
--- NOTE | 2017-07-23 07:45 | RADIOLOGY REPORT ---
EXAMINATION: XR CHEST CLINICAL INFORMATION: Shortness of breath and rales. COMPARISON: None. TECHNIQUE: Frontal and lateral views of the chest. FINDINGS: The cardiac silhouette and central pulmonary vasculature are prominent. There are diffuse reticular markings increasing in severity towards the bases. Small pleural effusions. Overall appearance is consistent with mild interstitial edema. No lobar pneumonia. Nonobstructive gas pattern. Spinal electrode again noted. IMPRESSION: Interstitial edema and small effusions.
--- NOTE | 2017-07-23 10:36 | Cons- Endocrinology ---
General Information and HPI Consulting Request Date of Consult: 07/23/17 Requested By: medical team Reason for Consult: management of hypothyroidism Source of Information: patient, old records Exam Limitations: no limitations History of Present Illness: 71-year-old female with past medical history of coronary artery disease status post 2 stent, asthma, hypertension, hyperlipidemia, diabetes type 2, stage III kidney disease, hypothyroidism, congestive heart failure came to ER for progressive shortness of breath. Blood work showed TSH 18.1 and free T4 1.3. She was on Levothyroxine 125 mcg daily. In 06/2017, her TSH was 14.5 and free T4 1.37. With regards to diabetes, she was on Levemir 30-40 units daily at bedtime, Novolog coverage before meals according to the scale. In hospital, she was put on Levbemir 25 units daily at bedtime and Novolog coverage before meals. Her FSGs were 192, 186 and 229. Allergies/Medications Allergies: Coded Allergies: povidone-iodine (From BETADINE) (RASH 04/11/17) ITCH PER ANTIBIOTIC ORDER SHEET OF 12/04/16 (SJS) soap (From BETADINE) (RASH 04/11/17) PARISH Inhibitors (Mild, COUGH 04/11/17) Home Med List: Albuterol Sulfate (Proair Hfa) 90 MCG HFA.AER.AD 1 PUF INH AD PRN ASTHMA ( Reported) Alpha Lipoic Acid 300 MG CAPSULE 2 CAP PO BID NEUROPATHIC PAIN (Reported) Amlodipine Besylate 5 MG TABLET 1 TAB PO DAILY BP (Reported) Aspirin (Ecotrin*) 81 MG TABLET.DR 1 TAB PO QPM HEART/BLOOD (Reported) Azilsartan Medoxomil (Edarbi) 80 MG TABLET 1 TAB PO DAILY BP (Reported) Bumetanide 1 MG TABLET 2 TAB PO BID WATER RETENTION (Reported) Carvedilol (Coreg) 25 MG TABLET 1 TAB PO BID HTN (Reported) Cholecalciferol (Vitamin D3) (Vitamin D) 1,000 UNIT TABLET 2 TAB PO DAILY VITAMIN SUPPORT (Reported) Difluprednate (Durezol) 0.05 % DROPS 1 GTT OD TID RIGHT EYE (Reported) Doxazosin Mesylate (Cardura) 2 MG TABLET 1 TAB PO BID BP (Reported) Duloxetine HCl 60 MG CAPSULE.DR 1 CAP PO DAILY NERVE PAIN (Reported) Ferrous Sulfate 325 MG (65 MG IRON) TABLET. 1 TAB PO DAILY ANEMIA Fluticasone/Salmeterol (Advair 250-50 Diskus) 1 EACH BLST.W.DEV 1 PUF INH BID ASTHMA (Reported) Hydralazine HCl 100 MG TABLET 1 TAB PO TID BP (Reported) Insulin Aspart (Novolog) 100 UNIT/ML VIAL DM (Reported) Insulin Detemir (Levemir) 100 UNIT/ML VIAL 20-30 UNITS SC QPM DM (Reported) Isosorbide Mononitrate (Isosorbide Mononitrate ER) 60 MG TAB.ER.24H 1 TAB PO DAILY HEART (Reported) Levocetirizine Dihydrochloride 5 MG TABLET 1 TAB PO QPM ALLERGIES (Reported) Levothyroxine Sodium (Synthroid) 125 MCG TABLET 1 TAB PO DAILY HYPOTHYROIDISM (Reported) [place]-3 Fatty Acids/Fish Oil (Fish Oil 1,000 MG Capsule) 340 MG-1,000 MG CAPSULE 1 CAP PO TID SUPPLEMENT (Reported) Rosuvastatin Calcium (Crestor) 20 MG TABLET 1 TAB PO QPM HYPERCHOLESTROLEMIA (Reported) Review of Systems Review of Systems Constitutional: Reports: see HPI. Cardiovascular: Reports: orthopena. Respiratory: Reports: short of breath. GI: Denies: abdominal pain. Musculoskeletal: Denies: back pain. Hematologic/Endocrine: Denies: polyuria, polydipsia. 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 SISTER (Pancreatic cancer). Psychosocial History Where Do You Live? Home Who Do You Live With? spouse Services at Home: None Primary Language: Scottish Smoking Status: Never Smoked ETOH Use: denies use Functional Ability ADLs Independent: dressing, eating, toileting, bathing. Ambulation: cane, Patient used a cane when outside the house but ambulates independently indoors. IADLs Independent: finances, food prep, telephone, medication admin. Needs Assist: shopping, housework, transportation. Exam & Diagnostic Data Last 24 Hrs of Vital Signs/I&O Vital Signs Date Time Temp Pulse Resp B/P B/P Pulse O2 O2 Flow FiO2 Mean Ox Delivery Rate 07/23 0848 98.0 70 18 178/74 93 07/23 0843 Nasal 2.0L Cannula 07/23 0643 96.7 71 18 194/77 98 CPAP 2.0L 07/23 0622 67 97 07/23 0042 64 95 07/22 2304 98.5 70 18 152/72 07/22 2304 98.5 70 18 152/72 07/22 2109 95 Nasal 2.0L Cannula 07/22 1958 98.5 70 18 152/72 97 Room Air Room Air 07/22 1625 98.6 64 18 169/75 97 Nasal 2.0L Cannula Intake & Output 07/23 1600 07/23 0800 07/23 0000 Intake Total 240 120 Output Total Balance 240 120 Intake, Oral 240 120 Patient 183 lb 183 lb Weight Weight Reported by Patient Reported by Patient Measurement Method Physical Exam General Appearance: no apparent distress Neck: normal inspection Respiratory: decreased breath sounds Cardiovascular: regular rate/rhythm Gastrointestinal: soft, non-tender Extremities: no edema Labs/Jose Alejandro Results: Laboratory Tests 07/23 07/22 0406 2253 Chemistry Sodium (137 - 145 mmol/L) 142 Potassium (3.5 - 5.1 mmol/L) 3.6 Chloride (98 - 107 mmol/L) 101 Carbon Dioxide (22 - 30 mmol/L) 27 Anion Gap (5 - 16) 14 BUN (7 - 17 mg/dL) 78 H Creatinine (0.5 - 1.0 mg/dL) 2.2 H Estimated GFR (>60 ml/min) 22 L BUN/Creatinine Ratio (7 - 25 %) 35.5 H Troponin I (< 0.11 ng/ml) 0.02 0.02 Hematology CBC w Diff NO MAN DIFF REQ WBC (4.8 - 10.8 /CUMM) 8.8 RBC (4.20 - 5.40 /CUMM) 2.85 L Hgb (12.0 - 16.0 G/DL) 8.2 L Hct (37 - 47 %) 24.7 L MCV (81.0 - 99.0 FL) 86.7 MCH (27.0 - 31.0 PG) 28.9 MCHC (33.0 - 37.0 G/DL) 33.3 RDW (11.5 - 14.5 %) 14.0 Plt Count (130 - 400 /CUMM) 180 MPV (7.4 - 10.4 FL) 8.9 Gran % (42.2 - 75.2 %) 89.7 H Lymphocytes % (20.5 - 51.1 %) 8.7 L Monocytes % (1.7 - 9.3 %) 1.1 L Eosinophils % (0 - 5 %) 0.3 Basophils % (0.0 - 2.0 %) 0.2 Absolute Granulocytes (1.4 - 6.5 /CUMM) 7.9 H Absolute Lymphocytes (1.2 - 3.4 /CUMM) 0.8 L Absolute Monocytes (0.10 - 0.60 /CUMM) 0.1 Absolute Eosinophils (0.0 - 0.7 /CUMM) 0 Absolute Basophils (0.0 - 0.2 /CUMM) 0 07/22 1632 Chemistry Sodium (137 - 145 mmol/L) 140 Potassium (3.5 - 5.1 mmol/L) 3.9 Chloride (98 - 107 mmol/L) 98 Carbon Dioxide (22 - 30 mmol/L) 30 Anion Gap (5 - 16) 13 BUN (7 - 17 mg/dL) 73 H Creatinine (0.5 - 1.0 mg/dL) 1.9 H Estimated GFR (>60 ml/min) 26 L BUN/Creatinine Ratio (7 - 25 %) 38.4 H Glucose (65 - 99 mg/dL) 139 H Calcium (8.4 - 10.2 mg/dL) 9.4 Iron (37 - 170 ug/dL) 44 TIBC (265 - 497 ug/dL) 352 Ferritin (11.1 - 264 ng/mL) 50.0 Total Bilirubin (0.2 - 1.3 mg/dL) 0.5 AST (14 - 36 U/L) 13 L ALT (9 - 52 U/L) 26 Alkaline Phosphatase (<127 U/L) 66 Troponin I (< 0.11 ng/ml) 0.02 [id number] Pept (<125 pg/mL) 4500 H Total Protein (6.3 - 8.2 g/dL) 6.4 Albumin (3.5 - 5.0 g/dL) 3.8 Globulin (1.9 - 4.2 gm/dL) 2.6 Albumin/Globulin Ratio (1.1 - 2.2 %) 1.5 TSH (0.270 - 4.200 uIU/mL) 18.100 H Free T4 (0.78 - 2.44 ng/dL) 1.30 Hematology CBC w Diff NO MAN DIFF REQ WBC (4.8 - 10.8 /CUMM) 9.4 RBC (4.20 - 5.40 /CUMM) 2.95 L Hgb (12.0 - 16.0 G/DL) 8.6 L Hct (37 - 47 %) 25.7 L MCV (81.0 - 99.0 FL) 87.0 MCH (27.0 - 31.0 PG) 29.2 MCHC (33.0 - 37.0 G/DL) 33.6 RDW (11.5 - 14.5 %) 13.3 Plt Count (130 - 400 /CUMM) 208 MPV (7.4 - 10.4 FL) 9.0 Gran % (42.2 - 75.2 %) 64.8 Lymphocytes % (20.5 - 51.1 %) 19.2 L Monocytes % (1.7 - 9.3 %) 9.0 Eosinophils % (0 - 5 %) 6.3 H Basophils % (0.0 - 2.0 %) 0.7 Absolute Granulocytes (1.4 - 6.5 /CUMM) 6.1 Absolute Lymphocytes (1.2 - 3.4 /CUMM) 1.8 Absolute Monocytes (0.10 - 0.60 /CUMM) 0.9 H Absolute Eosinophils (0.0 - 0.7 /CUMM) 0.6 Absolute Basophils (0.0 - 0.2 /CUMM) 0.1 Assessment/Plan Assessment/Plan 71-year-old female with past medical history of coronary artery disease status post 2 stent, asthma, hypertension, hyperlipidemia, diabetes type 2, stage III kidney disease, hypothyroidism, congestive heart failure came to ER for progressive shortness of breath. Blood work showed TSH 18.1 and free T4 1.3. She was on Levothyroxine 125 mcg daily. Hypothyroidism: 1. increase Levothyroxine to 137 mcg daily; 2. repeat TFT next week to look for a trend; DM: 1. continue Levemir 25 units daily; 2. adjust Novolog coverage before meals and add Novolog coverage at bedtime; detail see inpatient DM orders; 3. monitor FSGs. will follow. Inpatient Diabetes Orders Before Each Meal: Bolus Insulin: Novolog < 80 mg/dl: no covearge 80-100 mg/dl: 3 units 101-120 mg/dl: 3 units 121-150 mg/dl: 3 units 151-200 mg/dl: 4 units 201-250 mg/dl: 6 units 251-300 mg/dl: 8 units 301-350 mg/dl: 10 units 351-400 mg/dl: 11 units > 400 mg/dl: 12 units Bedtime: Bolus Insulin: Novolog < 80 mg/dl: no coverage 80-100 mg/dl: no coverage 101-120 mg/dl: no coverage 121-150 mg/dl: no coverage 151-200 mg/dl: no coverage 201-250 mg/dl: no coverage 251-300 mg/dl: 2 units 301-350 mg/dl: 3 units 351-400 mg/dl: 4 units > 400 mg/dl: 5 units Consult Acknowledgment - Thank you for your consult request.
--- NOTE | 2017-07-23 14:12 | Cons- Cardiology ---
General Information and HPI Consulting Request Date of Consult: 07/23/17 Requested By: Rtia Villavicencio MD Reason for Consult: Congestive heart failure Source of Information: patient, old records Exam Limitations: no limitations History of Present Illness: The patient is a 71-year-old female. Her regular metrologist is Dr. Mtz who I am covering for today. Her past medical history is remarkable for coronary artery disease, status post 2 stents. The last and was placed in 2013. She also has a history of asthma, hypertension, hyperlipidemia, diabetes, stage III chronic renal disease. She also has a history of prior heart failure with preserved ejection fraction. The patient is now minute to the hospital with progressive shortness of breath. Apparently she has been seeing her primary care physician and also been going to the [facility] CHF clinic. She reports having received IV diuretics several times over the last few weeks. Despite this fact, she has had progressive shortness of breath. The patient also has a history of hypertensive urgency for which she was recently treated. She adamantly denies any other cardiac symptoms. She has had no chest pain, palpitations, dizziness, etc. Allergies/Medications Allergies: Coded Allergies: povidone-iodine (From BETADINE) (RASH 04/11/17) ITCH PER ANTIBIOTIC ORDER SHEET OF 12/04/16 (SJS) soap (From BETADINE) (RASH 04/11/17) PARISH Inhibitors (Mild, COUGH 04/11/17) Home Med List: Albuterol Sulfate (Proair Hfa) 90 MCG HFA.AER.AD 1 PUF INH AD PRN ASTHMA ( Reported) Alpha Lipoic Acid 300 MG CAPSULE 2 CAP PO BID NEUROPATHIC PAIN (Reported) Amlodipine Besylate 5 MG TABLET 1 TAB PO DAILY BP (Reported) Aspirin (Ecotrin*) 81 MG TABLET.DR 1 TAB PO QPM HEART/BLOOD (Reported) Azilsartan Medoxomil (Edarbi) 80 MG TABLET 1 TAB PO DAILY BP (Reported) Bumetanide 1 MG TABLET 2 TAB PO BID WATER RETENTION (Reported) Carvedilol (Coreg) 25 MG TABLET 1 TAB PO BID HTN (Reported) Cholecalciferol (Vitamin D3) (Vitamin D) 1,000 UNIT TABLET 2 TAB PO DAILY VITAMIN SUPPORT (Reported) Difluprednate (Durezol) 0.05 % DROPS 1 GTT OD TID RIGHT EYE (Reported) Doxazosin Mesylate (Cardura) 2 MG TABLET 1 TAB PO BID BP (Reported) Duloxetine HCl 60 MG CAPSULE. 1 CAP PO DAILY NERVE PAIN (Reported) Ferrous Sulfate 325 MG (65 MG IRON) TABLET.DR 1 TAB PO DAILY ANEMIA Fluticasone/Salmeterol (Advair 250-50 Diskus) 1 EACH BLST.W.DEV 1 PUF INH BID ASTHMA (Reported) Hydralazine HCl 100 MG TABLET 1 TAB PO TID BP (Reported) Insulin Aspart (Novolog) 100 UNIT/ML VIAL DM (Reported) Insulin Detemir (Levemir) 100 UNIT/ML VIAL 20-30 UNITS SC QPM DM (Reported) Isosorbide Mononitrate (Isosorbide Mononitrate ER) 60 MG TAB.ER.24H 1 TAB PO DAILY HEART (Reported) Levocetirizine Dihydrochloride 5 MG TABLET 1 TAB PO QPM ALLERGIES (Reported) Levothyroxine Sodium (Synthroid) 125 MCG TABLET 1 TAB PO DAILY HYPOTHYROIDISM (Reported) [place]-3 Fatty Acids/Fish Oil (Fish Oil 1,000 MG Capsule) 340 MG-1,000 MG CAPSULE 1 CAP PO TID SUPPLEMENT (Reported) Rosuvastatin Calcium (Crestor) 20 MG TABLET 1 TAB PO QPM HYPERCHOLESTROLEMIA (Reported) Current Medications: Current Medications Sig/Larissa Start time Last Medication Dose Route Stop Time Status Admin Albuterol Sulfate 3 ML Q4 HRS NEEDED PRN 07/23 1300 AC INH Albuterol Sulfate 2 PUF Q4P PRN 07/22 2130 AC INH Amlodipine Besylate 0 .STK-MED ONE 07/23 1123 DC PO Amlodipine Besylate 5 MG DAILY 07/23 1000 AC 07/23 PO 1134 Aspirin Buffered 81 MG QPM 07/22 2200 AC 07/22 PO 2304 Atorvastatin Calcium 80 MG 1700 07/23 1700 AC PO Brimonidine Tartrate 1 GTT TID 07/22 2200 AC 07/22 OPH 2304 Budesonide/ 2 PUF BID 07/22 2200 AC 07/23 Formoterol Fumarate INH 1201 Bumetanide 2 MG BID 07/22 2200 AC 07/23 IV 1134 Carvedilol 25 MG BID 07/22 2230 AC 07/23 PO 1134 Cholecalciferol 1,000 IU DAILY 07/23 1000 AC 07/23 PO 1134 Doxazosin Mesylate 2 MG BID 07/22 2230 AC 07/23 PO 1134 Duloxetine HCl 60 MG DAILY 07/23 1000 AC 07/23 PO 1134 Ferrous Sulfate 325 MG DAILY 07/23 1000 AC 07/23 PO 1134 Fish Oil 1,050 MG BID 07/22 2230 AC 07/23 PO 1134 Furosemide 0 .STK-MED ONE 07/22 2023 DC IV Furosemide 20 MG ONCE ONE 07/22 1830 DC 07/22 IV 07/22 183 2104 Heparin Sodium 0 .STK-MED ONE 07/23 0629 DC (Porcine) .ROUTE Heparin Sodium 5,000 UNIT Q8 07/22 2200 AC 07/23 (Porcine) SC 1408 Hydralazine HCl 100 MG TID 07/22 2230 AC 07/23 PO 1134 Insulin Aspart 0 TIDAC/HS 07/23 1200 AC 07/23 SC 1230 Insulin Aspart 0 TIDAC 07/23 0800 DC 07/23 SC 0743 Insulin Aspart 6 UNITS ONCE ONE 07/22 1900 DC 07/22 SC 07/22 1901 2030 Insulin Detemir 25 UNITS AT BEDTIME 07/22 2200 AC 07/22 SC 2304 Isosorbide 60 MG DAILY 07/23 1000 AC 07/23 Mononitrate PO 1134 Levothyroxine Sodium 0.137 MG DAILY AC 07/24 0700 AC PO Levothyroxine Sodium 0.125 MG DAILY AC 07/23 0700 DC 07/23 PO 0633 Methylprednisolone 0 .STK-MED ONE 07/22 2023 DC .ROUTE Methylprednisolone 125 MG ONCE ONE 07/22 1830 DC 07/22 IV 07/22 183 210 Past History Travel History Traveled to [place] past 21 day No Medical History Neurological: vertigo EENT: SLEEP APNEA Cardiovascular: CHF, hypertension Respiratory: asthma, pneumonia, SLEEP APNEA NOCTURNAL CPAP Gastrointestinal: NONE Hepatic: NONE Renal: CKD 3 Musculoskeletal: SPINAL STENOSIS PAIN STIMULATOR Psychiatric: anxiety, depression Endocrine: diabetes, HYPOTHYROID Blood Disorders: anemia Cancer(s): NONE PLATE FINISHER/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 SISTER (Pancreatic cancer). Psychosocial History Where Do You Live? Home Who Do You Live With? spouse Services at Home: None Primary Language: Maori Smoking Status: Never Smoked ETOH Use: denies use Functional Ability ADLs Independent: dressing, eating, toileting, bathing. Ambulation: cane, Patient used a cane when outside the house but ambulates independently indoors. IADLs Independent: finances, food prep, telephone, medication admin. Needs Assist: shopping, housework, transportation. Exam & Diagnostic Data Vital Signs and I&O Vital Signs Date Time Temp Pulse Resp B/P B/P Pulse O2 O2 Flow FiO2 Mean Ox Delivery Rate 07/23 1325 98.1 71 18 165/69 99 Nasal 2.0L Cannula 07/23 1249 Nasal 2.0L Cannula 07/23 1134 72 180/74 07/23 1134 72 180/74 07/23 1134 72 180/74 07/23 1134 72 180/74 07/23 1043 98.4 72 18 180/74 93 07/23 0848 98.0 70 18 178/74 93 07/23 0843 Nasal 2.0L Cannula 07/23 0643 96.7 71 18 194/77 98 CPAP 2.0L 07/23 0622 67 97 07/23 0042 64 95 07/22 2304 98.5 70 18 152/72 07/22 2304 98.5 70 18 152/72 07/22 2109 95 Nasal 2.0L Cannula 07/22 1958 98.5 70 18 152/72 97 Room Air Room Air 07/22 1625 98.6 64 18 169/75 97 Nasal 2.0L Cannula Intake & Output 07/23 1600 07/23 0800 07/23 0000 07/22 1600 07/22 0800 07/22 0000 Intake Total 240 120 Output Total Balance 240 120 Intake, Oral 240 120 Patient 183 lb 183 lb Weight Weight Reported by Patient Reported by Patient Measurement Method Physical Exam: General Appearance Alert, Oriented X3, Cooperative, No Acute Distress HEENT PERRLA, EOMI Cardiovascular Normal S1, Normal S2, 1 to 2/6 systolic murmur left lower sternal border Lungs bibasal crackles Abdomen No Tenderness, obese Neurological nonfocal Extremities bilateral 1+ pitting pedal edema. Vascular Normal Pulses Labs/Jose Alejandro Results: Laboratory Tests 07/23 07/23 1143 0406 Chemistry Sodium (137 - 145 mmol/L) 142 Potassium (3.5 - 5.1 mmol/L) 3.6 Chloride (98 - 107 mmol/L) 101 Carbon Dioxide (22 - 30 mmol/L) 27 Anion Gap (5 - 16) 14 BUN (7 - 17 mg/dL) 78 H Creatinine (0.5 - 1.0 mg/dL) 2.2 H Estimated GFR (>60 ml/min) 22 L BUN/Creatinine Ratio (7 - 25 %) 35.5 H Troponin I (< 0.11 ng/ml) 0.02 Hematology CBC w Diff NO MAN DIFF REQ WBC (4.8 - 10.8 /CUMM) 8.8 RBC (4.20 - 5.40 /CUMM) 2.85 L Hgb (12.0 - 16.0 G/DL) 8.2 L Hct (37 - 47 %) 24.7 L MCV (81.0 - 99.0 FL) 86.7 MCH (27.0 - 31.0 PG) 28.9 MCHC (33.0 - 37.0 G/DL) 33.3 RDW (11.5 - 14.5 %) 14.0 Plt Count (130 - 400 /CUMM) 180 MPV (7.4 - 10.4 FL) 8.9 Gran % (42.2 - 75.2 %) 89.7 H Lymphocytes % (20.5 - 51.1 %) 8.7 L Monocytes % (1.7 - 9.3 %) 1.1 L Eosinophils % (0 - 5 %) 0.3 Basophils % (0.0 - 2.0 %) 0.2 Absolute Granulocytes (1.4 - 6.5 /CUMM) 7.9 H Absolute Lymphocytes (1.2 - 3.4 /CUMM) 0.8 L Absolute Monocytes (0.10 - 0.60 /CUMM) 0.1 Absolute Eosinophils (0.0 - 0.7 /CUMM) 0 Absolute Basophils (0.0 - 0.2 /CUMM) 0 Urines Urinalysis LIGHT H Urine Color (YEL,AMB,STR) YEL Urine Clarity (CLEAR) CLEAR Urine pH (5.0 - 8.0) 6.0 Ur Specific [place] (1.001 - 1.035) 1.025 Urine Protein (NEG,<30 MG/DL) 100 H Urine Ketones (NEG) NEG Urine Nitrite (NEG) NEG Urine Bilirubin (NEG) NEG Urine Urobilinogen (0.1 - 1.0 EU/dl) 0.2 Ur Leukocyte Esterase (NEG) NEG Ur Microscopic SEDIMENT EXAMINED Urine RBC (0 - 5 /HPF) 1-3 Urine WBC (0 - 2 /HPF) 3-5 H Ur Epithelial Cells (NONE,FEW) FEW Urine Bacteria (NEG/NONE) FEW H Hyaline Casts (0/LPF) 10-15 H Urine Hemoglobin (NEG) NEG Urine Glucose (N MG/DL) NEG 07/22 07/22 2313 1632 Chemistry Sodium (137 - 145 mmol/L) 140 Potassium (3.5 - 5.1 mmol/L) 3.9 Chloride (98 - 107 mmol/L) 98 Carbon Dioxide (22 - 30 mmol/L) 30 Anion Gap (5 - 16) 13 BUN (7 - 17 mg/dL) 73 H Creatinine (0.5 - 1.0 mg/dL) 1.9 H Estimated GFR (>60 ml/min) 26 L BUN/Creatinine Ratio (7 - 25 %) 38.4 H Glucose (65 - 99 mg/dL) 139 H Calcium (8.4 - 10.2 mg/dL) 9.4 Iron (37 - 170 ug/dL) 44 TIBC (265 - 497 ug/dL) 352 Ferritin (11.1 - 264 ng/mL) 50.0 Total Bilirubin (0.2 - 1.3 mg/dL) 0.5 AST (14 - 36 U/L) 13 L ALT (9 - 52 U/L) 26 Alkaline Phosphatase (<127 U/L) 66 Troponin I (< 0.11 ng/ml) 0.02 0.02 [id number] Pept (<125 pg/mL) 4500 H Total Protein (6.3 - 8.2 g/dL) 6.4 Albumin (3.5 - 5.0 g/dL) 3.8 Globulin (1.9 - 4.2 gm/dL) 2.6 Albumin/Globulin Ratio (1.1 - 2.2 %) 1.5 TSH (0.270 - 4.200 uIU/mL) 18.100 H Free T4 (0.78 - 2.44 ng/dL) 1.30 Hematology CBC w Diff NO MAN DIFF REQ WBC (4.8 - 10.8 /CUMM) 9.4 RBC (4.20 - 5.40 /CUMM) 2.95 L Hgb (12.0 - 16.0 G/DL) 8.6 L Hct (37 - 47 %) 25.7 L MCV (81.0 - 99.0 FL) 87.0 MCH (27.0 - 31.0 PG) 29.2 MCHC (33.0 - 37.0 G/DL) 33.6 RDW (11.5 - 14.5 %) 13.3 Plt Count (130 - 400 /CUMM) 208 MPV (7.4 - 10.4 FL) 9.0 Gran % (42.2 - 75.2 %) 64.8 Lymphocytes % (20.5 - 51.1 %) 19.2 L Monocytes % (1.7 - 9.3 %) 9.0 Eosinophils % (0 - 5 %) 6.3 H Basophils % (0.0 - 2.0 %) 0.7 Absolute Granulocytes (1.4 - 6.5 /CUMM) 6.1 Absolute Lymphocytes (1.2 - 3.4 /CUMM) 1.8 Absolute Monocytes (0.10 - 0.60 /CUMM) 0.9 H Absolute Eosinophils (0.0 - 0.7 /CUMM) 0.6 Absolute Basophils (0.0 - 0.2 /CUMM) 0.1 Diagnostic Data CXR Results FINDINGS: The cardiac silhouette and central pulmonary vasculature are prominent. There are diffuse reticular markings increasing in severity towards the bases. Small pleural effusions. Overall appearance is consistent with mild interstitial edema. No lobar pneumonia. Nonobstructive gas pattern. Spinal electrode again noted. IMPRESSION: Interstitial edema and small effusions Assessment/Plan Assessment/Plan Assessment: 1. Increasing shortness of breath, likely related to acute on chronic heart failure with preserved ejection fraction 2. Hypertension 3. Hypothyroidism significantly elevated TSH of 18 4. Lower extremity edema 5. Normocytic anemia 6. Chronic renal insufficiency Recommendations: -Admitted to telemetry monitored floor -Echocardiogram pending -IV diuretics as ordered -Strict monitoring of intakes, takes, and daily weights -Continue other cardiac medications -Recommendations as per endocrinology Consult Acknowledgment - Thank you for your consult request.
[2017-07-23 14:15] VITALS: BP 152/58
--- NOTE | 2017-07-23 17:42 | ECHOCARDIOGRAM REPORT ---
JOSELYN DUARTE Age: 71 : 1945 Gender: F Exam Date: 07/23/2017 10:04 Exam Location: ER Ht (in): 58 Wt (lb): 183 BSA: 1.89 BP: 194 / 77 Ordering Physician: Brooklynn Conti MD Referring Physician: Brooklynn Conti MD Technologist: Karthik Lugo [facility] Room Number: 9 Indications: Shortness of breath Rhythm: Sinus Technical Quality: Good FINDINGS Left Ventricle Normal size left ventricle. Mild concentric left ventricular hypertrophy. Normal left ventricular ejection fraction visually estimated at >60%. "pseudonormal" filling pattern of the left ventricle for age (stage 2 diastolic dysfunction). Right Ventricle Normal right ventricular size and function. Right Atrium Normal right atrial size. Left Atrium Mild left atrial dilatation. Mitral Valve Mitral valve thickened. Mild mitral regurgitation. Aortic Valve Aortic valve not well visualized, grossly normal. Diffuse thickening (sclerosis) of the aortic valve cusps without reduced excursion. No aortic stenosis. Mild aortic regurgitation. Tricuspid Valve Tricuspid valve not well visualized, grossly normal. Trace tricuspid regurgitation. Right ventricular systolic pressure estimated to be elevated at 49 mmHg. Pulmonic Valve Pulmonic valve not well visualized, grossly normal. Trace pulmonic regurgitation. Pericardium No pericardial effusion. Great Vessels Normal size aortic root. CONCLUSIONS Normal size left ventricle. Mild concentric left ventricular hypertrophy. Normal left ventricular ejection fraction visually estimated at > 60%. "pseudonormal" filling pattern of the left ventricle for age (stage 2 diastolic dysfunction). Mild left atrial dilatation. Mild mitral regurgitation. Mild aortic regurgitation. Right ventricular systolic pressure estimated to be elevated at 49 mmHg. Trace pulmonic regurgitation. Sherman Hernandez M.D. (Electronically Signed) Final Date: 23 July 2017 17:41 MEASUREMENTS (Male / Female) Normal Values 2D ECHO LV Diastolic Diameter PLAX 4.4 cm 4.2 - 5.9 / 3.9 - 5.3 cm LV Systolic Diameter PLAX 2.9 cm 2.1 - 4.0 cm LV Fractional Shortening PLAX 34.1 % 25 - 46 % LV Ejection Fraction 2D Teich 63.3 % IVS Diastolic Thickness 1.3 cm LVPW Diastolic Thickness 1.3 cm LV Relative Wall Thickness 0.6 LVOT Diameter 1.8 cm Aortic Root Diameter 2.3 cm LA Systolic Diameter LX 4.2 cm 3.0 - 4.0 / 2.7 - 3.8 cm LA Volume 64.0 cm 18 - 58 / 22 - 52 cm Ascending Aorta Diameter 3.1 cm DOPPLER AV Peak Velocity 204.0 cm/s AV Peak Gradient 16.6 mmHg AV Mean Velocity 131.0 cm/s AV Mean Gradient 8.0 mmHg AV Velocity Time Integral 42.8 cm LVOT Peak Velocity 134.0 cm/s LVOT Peak Gradient 7.2 mmHg LVOT Mean Velocity 90.1 cm/s LVOT Mean Gradient 4.0 mmHg LVOT Velocity Time Integral 30.7 cm LVOT Stroke Volume 78.1 cm AV Area Cont Eq vti 1.8 cm AV Area Cont Eq pk 1.7 cm MV Peak Velocity 165.0 cm/s MV Peak Gradient 10.9 mmHg MV Mean Velocity 99.5 cm/s MV Mean Gradient 5.0 mmHg Mitral E Point Velocity 172.0 cm/s Mitral A Point Velocity 112.0 cm/s Mitral E to A Ratio 1.5 MV PHT Velocity 178.0 cm/s MV Deceleration Long 615.0 cm/s MV Pressure Half Time 86.8 ms MV Area PHT 2.5 cm MV Deceleration Time 292.0 ms MR Peak Velocity 563.0 cm/s MR Peak Gradient 126.8 mmHg TR Peak Velocity 313.0 cm/s TR Peak Gradient 39.2 mmHg Right Atrial Pressure 10.0 mmHg Pulmonary Artery Systolic Pressu 49.2 mmHg Right Ventricular Systolic Press 49.2 mmHg PV Peak Velocity 142.0 cm/s PV Peak Gradient 8.1 mmHg PV Mean Velocity 96.7 cm/s PV Mean Gradient 4.0 mmHg PV Velocity Time Integral 29.5 cm LV E' Lateral Velocity 7.8 cm/s Mitral E to LV E' Lateral Ratio 22.1 LV E' Septal Velocity 5.9 cm/s Mitral E to LV E' Septal Ratio 28.9
[2017-07-23 22:55] VITALS: BP 132/54
[2017-07-24 06:19] VITALS: BP 148/76
--- NOTE | 2017-07-24 08:58 | PN- Housestaff ---
Gwendolyn Patel 07/24/17 0857: Subjective Follow-up For: Acute on chronic CHF Tele-Events Since Last Visit: NSR, PVCs, HR 67-71 SB, HR 58 Subjective: No complaints or acute events overnight. Son at bedside. FSG overnight 362. Review of Systems Constitutional: Reports: see HPI. Objective Last 24 Hrs of Vital Signs/I&O Vital Signs Date Time Temp Pulse Resp B/P B/P Pulse O2 O2 Flow FiO2 Mean Ox Delivery Rate 07/24 0929 64 148/76 07/24 0921 64 148/76 07/24 09 64 148/76 07/24 0918 64 148/76 07/24 0619 98.7 64 20 148/76 94 Nasal 3.0L Cannula 07/24 0250 96 CPAP 07/24 0052 73 97 07/24 0050 98 Nasal 2.5L Cannula 07/23 2308 78 150/78 07/23 2255 98.6 70 22 132/54 95 Nasal 2.0L Cannula 07/23 1858 98.0 76 16 150/80 07/23 1600 94 Nasal 2.5L Cannula 07/23 1551 98.9 69 18 144/69 99 Nasal 2.5L Cannula 07/23 1415 98.2 72 16 152/58 94 Nasal 2.5L Cannula 07/23 1325 98.1 71 18 165/69 99 Nasal 2.0L Cannula 07/23 1249 Nasal 2.0L Cannula 07/23 1134 72 180/74 07/23 1134 72 180/74 07/23 1134 72 180/74 07/23 1134 72 180/74 Intake & Output 07/24 1600 07/24 0800 07/24 0000 Intake Total 400 250 Output Total 350 Balance 50 250 Intake, Oral 400 250 Output, Urine 350 Patient 189 lb 175 lb Weight Physical Exam General Appearance: Alert, Oriented X3, Cooperative, No Acute Distress Cardiovascular: 1/6 systolic murmur Lungs: Clear to Auscultation, Normal Air Movement Abdomen: Normal Bowel Sounds, Soft, No Tenderness Extremities: 1+ pitting edema on RLE Current Medications: Current Medications Sig/Larissa Start time Last Medication Dose Route Stop Time Status Admin Albuterol Sulfate 3 ML Q4 HRS NEEDED PRN 07/23 1300 AC INH Albuterol Sulfate 2 PUF Q4P PRN 02/15 2130 AC INH Amlodipine Besylate 0 .STK-MED ONE 07/23 1123 DC PO Amlodipine Besylate 5 MG DAILY 07/23 1000 AC 07/24 PO 0919 Aspirin Buffered 81 MG QPM 07/22 2200 AC 07/24 PO 0056 Atorvastatin Calcium 80 MG 1700 07/23 1700 AC 07/23 PO 1856 Brimonidine Tartrate 1 GTT TID 07/22 2200 DC 07/23 OPH 1804 Budesonide/ 2 PUF BID 07/22 220 AC 07/24 Formoterol Fumarate INH 0916 Bumetanide 2 MG BID 07/22 2200 AC 07/24 IV 0915 Carvedilol 25 MG BID 07/22 2230 AC 07/24 PO 0918 Cholecalciferol 1,000 IU DAILY 07/23 1000 AC 07/24 PO 0919 Doxazosin Mesylate 2 MG BID 07/22 2230 AC 07/24 PO 0924 Duloxetine HCl 60 MG DAILY 07/23 1000 AC 07/24 PO 0921 Ferrous Sulfate 325 MG DAILY 07/23 1000 AC 07/24 PO 0924 Fish Oil 1,050 MG BID 07/22 2230 AC 07/24 PO 0926 Heparin Sodium 5,000 UNIT Q8 07/22 220 AC 07/24 (Porcine) SC 0711 Hydralazine HCl 100 MG TID 07/22 223 AC 07/24 PO 0929 Insulin Aspart 0 TIDAC/HS 07/23 1200 AC 07/24 SC 0947 Insulin Detemir 25 UNITS AT BEDTIME 07/22 2200 AC 07/23 SC 2307 Isosorbide 60 MG DAILY 07/23 1000 AC 07/24 Mononitrate PO 0921 Levothyroxine Sodium 0.137 MG DAILY AC 07/24 0700 AC 07/24 PO 0711 Last 24 Hrs of Lab/Jose Alejandro Results Last 24 Hrs of Labs/Mics: Laboratory Tests 07/24/17 0610: Anion Gap 14, Estimated GFR 20 L, BUN/Creatinine Ratio 38.3 H 07/23/17 1143: Urinalysis LIGHT H, Urine Color YEL, Urine Clarity CLEAR, Urine pH 6.0, Ur Specific [place] 1.025, Urine Protein 100 H, Urine Ketones NEG, Urine Nitrite NEG, Urine Bilirubin NEG, Urine Urobilinogen 0.2, Ur Leukocyte Esterase NEG, Ur Microscopic SEDIMENT EXAMINED, Urine RBC 1-3, Urine WBC 3-5 H, Ur Epithelial Cells FEW, Urine Bacteria FEW H, Hyaline Casts 10-15 H, Urine Hemoglobin NEG, Urine Glucose NEG Assessment/Plan Assessment: Ms Nieves is a 71-year-old female with a past medical history of coronary artery disease status post stents 2 in 2013, hypertension, asthma, CHF with preserved EF, CKD, diabetes, hypothyroidism who was sent to the ER by her primary care physician for evaluation of shortness of breath. Problem list: Acute on chronic CHF Plan: ECHO: EF 60%, Stage 2 diastolic dysfunction Cr trending up (2.2>>2.4) Repeat CXR to evaluation resolution of interstitial edema and small effusions Strict I&Os, daily weights Increase Levemir to 30 units at bedtime daily, FSG 242 Problem List: 1. Acute on chronic congestive heart failure Pain Ratin Pain Location: NA Pain Goal: Remain pain free Pain Plan: NA Tomorrow's Labs & Rationales: BEP for renal function Tonja GUTIERREZ,Peña 07/24/17 1314: Attending MD Review Statement Attending Statement Attending MD Statement: examined this patient, discuss w/resident/PA/ONLINE AFFILIATE MARKETING MANAGER, agreed w/resident/PA/ONLINE AFFILIATE MARKETING MANAGER, reviewed EMR data (avail), discussed with nursing, reviewed images, amended to note Attending Assessment/Plan: 71-year-old obese pleasant female with past medical history significant for coronary artery disease status post PCI with stents, hypertension, hyperlipidemia, diabetes mellitus, COPD, diastolic heart failure, asthma, anemia , obstructive sleep apnea on CPAP, spinal stenosis status post nerve stimulator, parathyroidectomy has been admitted to the floor for progressive shortness of breath and failing outpatient therapy for heart failure with Lasix. Patient was seen and examined on the bedside, and comfortably but still complained to have shortness of breath with 2 L of oxygen by nasal cannula. Given her refractoriness to Lasix she was started on Bumex for acute on chronic heart failure evidenced by both clinical and radiological findings. Her kidney functions are gradually worsening and needs to be discussed with manager credit. Echo has been red that shows stage II diastolic heart failure with normal ejection fraction. Already seen by the agriculture teacher and helped adjustment in her insulin and he does of levothyroxine given her elevated TSH. We will repeat a chest x-ray in the morning, strict intake output record, continue to the rest of her home medications and DVT prophylaxis
--- NOTE | 2017-07-24 11:31 | PN- Diabetes ---
Assessment/Plan Diabetes Assessment: This 71-year-old woman came to emergency room because of shortness of breath. She has a history of coronary artery disease asthma hypertension chronic kidney disease hypothyroidism and congestive heart failure. Her TSH was elevated on admission and Dr. crawford increased her levothyroxine to 137 mcg yesterday. The patient is currently on Levemir 25 units at bedtime. Her sliding scale before meals was adjusted yesterday. This morning her fingerstick blood sugar was 263. Yesterday her sugars were high with 229 before breakfast, 289 before lunch, 332 before dinner, and 362 at bedtime. Plan: Suggest increase the patient's Levemir to 30 units at bedtime daily. Continue present sliding scale NovoLog before meals with a separate sliding scale at bedtime. Subjective Subjective: Feels okay Objective Last 24 Hrs of Vital Signs/I&O Vital Signs Date Time Temp Pulse Resp B/P B/P Pulse O2 O2 Flow FiO2 Mean Ox Delivery Rate 07/24 0929 64 148/76 07/24 0921 64 148/76 07/24 0919 64 148/76 07/24 0918 64 148/76 07/24 0619 98.7 64 20 148/76 94 Nasal 3.0L Cannula 07/24 0250 96 CPAP 07/24 0052 73 97 07/24 0050 98 Nasal 2.5L Cannula 07/23 2308 78 150/78 07/23 2255 98.6 70 22 132/54 95 Nasal 2.0L Cannula 07/23 1858 98.0 76 16 150/80 07/23 1600 94 Nasal 2.5L Cannula 07/23 1551 98.9 69 18 144/69 99 Nasal 2.5L Cannula 07/23 1415 98.2 72 16 152/58 94 Nasal 2.5L Cannula 07/23 1325 98.1 71 18 165/69 99 Nasal 2.0L Cannula 07/23 1249 Nasal 2.0L Cannula 07/23 1134 72 180/74 07/23 1134 72 180/74 07/23 1134 72 180/74 07/23 1134 72 180/74 Intake & Output 07/24 1600 07/24 0800 07/24 0000 Intake Total 400 250 Output Total 350 Balance 50 250 Intake, Oral 400 250 Output, Urine 350 Patient 189 lb 175 lb Weight Vital Signs Date Time Temp Pulse Resp B/P B/P Pulse O2 O2 Flow FiO2 Mean Ox Delivery Rate 07/24 0929 64 148/76 07/24 0921 64 148/76 07/24 0919 64 148/76 07/24 0918 64 148/76 07/24 0619 98.7 64 20 148/76 94 Nasal 3.0L Cannula 07/24 0250 96 CPAP 07/24 0052 73 97 07/24 0050 98 Nasal 2.5L Cannula 07/23 2308 78 150/78 07/23 2255 98.6 70 22 132/54 95 Nasal 2.0L Cannula 07/23 1858 98.0 76 16 150/80 07/23 1600 94 Nasal 2.5L Cannula 07/23 1551 98.9 69 18 144/69 99 Nasal 2.5L Cannula 07/23 1415 98.2 72 16 152/58 94 Nasal 2.5L Cannula 07/23 1325 98.1 71 18 165/69 99 Nasal 2.0L Cannula 07/23 1249 Nasal 2.0L Cannula 07/23 1134 72 180/74 07/23 1134 72 180/74 07/23 1134 72 180/74 07/23 1134 72 180/74 Intake & Output 07/24 1600 07/24 0800 07/24 0000 Intake Total 400 250 Output Total 350 Balance 50 250 Intake, Oral 400 250 Output, Urine 350 Patient 189 lb 175 lb Weight Physical Exam General Appearance: alert, awake Neck: normal inspection Respiratory: normal breath sounds Cardiovascular: regular rate/rhythm Current Medications: Current Medications Sig/Larissa Start time Last Medication Dose Route Stop Time Status Admin Albuterol Sulfate 3 ML Q4 HRS NEEDED PRN 07/23 1300 AC INH Albuterol Sulfate 2 PUF Q4P PRN 07/22 2130 AC INH Amlodipine Besylate 5 MG DAILY 07/23 1000 AC 07/24 PO 0919 Aspirin Buffered 81 MG QPM 07/22 2200 AC 07/24 PO 0056 Atorvastatin Calcium 80 MG 1700 07/23 1700 AC 07/23 PO 1856 Brimonidine Tartrate 1 GTT TID 07/22 2200 DC 07/23 OPH 1804 Budesonide/ 2 PUF BID 07/22 2200 AC 07/24 Formoterol Fumarate INH 0916 Bumetanide 2 MG BID 07/22 2200 AC 07/24 IV 0915 Carvedilol 25 MG BID 022229 AC 07/24 PO 0918 Cholecalciferol 1,000 IU DAILY 07/23 1000 AC 07/24 PO 0919 Doxazosin Mesylate 2 MG BID 07/22 2229 AC 07/24 PO 0924 Duloxetine HCl 60 MG DAILY 07/23 1000 AC 07/24 PO 0921 Ferrous Sulfate 325 MG DAILY 07/23 1000 AC 07/24 PO 0924 Fish Oil 1,050 MG BID 07/22 2229 AC 07/24 PO 0926 Heparin Sodium 5,000 UNIT Q8 07/22 220 AC 07/24 (Porcine) SC 0711 Hydralazine HCl 100 MG TID 07/22 2229 AC 07/24 PO 0929 Insulin Aspart 0 TIDAC/HS 07/23 1200 AC 07/24 SC 0947 Insulin Detemir 25 UNITS AT BEDTIME 07/22 2199 AC 07/23 SC 2307 Isosorbide 60 MG DAILY 07/23 1000 AC 07/24 Mononitrate PO 0921 Levothyroxine Sodium 0.137 MG DAILY AC 07/24 0700 AC 07/24 PO 0711 Findings Pertinent Lab/Jose Alejandro Results: Laboratory Tests 07/24 07/23 0610 1143 Chemistry Sodium (137 - 145 mmol/L) 137 Potassium (3.5 - 5.1 mmol/L) 3.8 Chloride (98 - 107 mmol/L) 97 L Carbon Dioxide (22 - 30 mmol/L) 26 Anion Gap (5 - 16) 14 BUN (7 - 17 mg/dL) 92 H Creatinine (0.5 - 1.0 mg/dL) 2.4 H Estimated GFR (>60 ml/min) 20 L BUN/Creatinine Ratio (7 - 25 %) 38.3 H Urines Urinalysis LIGHT H Urine Color (YEL,AMB,STR) YEL Urine Clarity (CLEAR) CLEAR Urine pH (5.0 - 8.0) 6.0 Ur Specific [place] (1.001 - 1.035) 1.025 Urine Protein (NEG,<30 MG/DL) 100 H Urine Ketones (NEG) NEG Urine Nitrite (NEG) NEG Urine Bilirubin (NEG) NEG Urine Urobilinogen (0.1 - 1.0 EU/dl) 0.2 Ur Leukocyte Esterase (NEG) NEG Ur Microscopic SEDIMENT EXAMINED Urine RBC (0 - 5 /HPF) 1-3 Urine WBC (0 - 2 /HPF) 3-5 H Ur Epithelial Cells (NONE,FEW) FEW Urine Bacteria (NEG/NONE) FEW H Hyaline Casts (0/LPF) 10-15 H Urine Hemoglobin (NEG) NEG Urine Glucose (N MG/DL) NEG
--- NOTE | 2017-07-24 14:30 | RADIOLOGY REPORT ---
EXAMINATION: XR PORTABLE CHEST CLINICAL INFORMATION: Evaluate interstitial edema for improvement. Diuretic. COMPARISON: Chest x-ray from 07/22/2017. TECHNIQUE: Portable frontal view of the chest was obtained. FINDINGS: Central vascular congestion is again evident with prominence of the interstitial and perihilar lung markings. More peripheral interstitial prominence on prior imaging is slightly improved. Small pleural effusions again evident. Enlargement of the cardiac silhouette is unchanged. Mediastinal contours are normal. No new airspace opacities are seen. A spinal electrode is again visible. No acute osseous abnormality is seen. IMPRESSION: No significant changes in central pulmonary vascular congestion. More peripheral interstitial prominence is slightly improved. Small pleural effusions. No new airspace disease. Cardiomegaly.
[2017-07-24 15:06] VITALS: BP 164/66
[2017-07-24 22:39] VITALS: BP 158/74
[2017-07-25 06:19] VITALS: BP 151/70
--- NOTE | 2017-07-25 08:52 | PN- Housestaff ---
Anna Marie GUTIERREZ,[facility] 07/25/17 0852: Subjective Follow-up For: CHF exacerbation Tele-Events Since Last Visit: Sinus bradycardia with first-degree AV block Heart rate 50-62 Subjective: Patient was eating her breakfast when I went to see her this morning, reports improvement in her shortness of breath. She was able to take a walk this morning without getting short of breath but she continues to be on oxygen though. Review of Systems Constitutional: Reports: no symptoms. EENTM: Reports: no symptoms. Cardiovascular: Reports: no symptoms. Respiratory: Reports: cough, short of breath. Gastrointestinal: Reports: no symptoms. Genitourinary: Reports: no symptoms. Musculoskeletal: Reports: no symptoms. Skin: Reports: no symptoms. Neurological/Psychological: Reports: no symptoms. Hematologic/Endocrine: Reports: no symptoms. Immunologic/Allergic: Reports: no symptoms. Objective Last 24 Hrs of Vital Signs/I&O Vital Signs Date Time Temp Pulse Resp B/P B/P Pulse O2 O2 Flow FiO2 Mean Ox Delivery Rate 07/25 1135 100 Nasal 2.5L Cannula 07/25 0834 60 150/90 07/25 0834 60 150/90 07/25 0833 60 150/90 07/25 0833 60 150/90 07/25 0800 94 Nasal 2.5L Cannula 07/25 0619 97.4 54 18 151/70 96 CPAP 07/24 2316 68 96 07/24 2239 98.9 60 20 158/74 99 Nasal 3.0L Cannula 07/24 2231 72 158/76 07/24 2230 72 158/64 Intake & Output 07/25 1600 07/25 0800 07/25 0000 Intake Total 620 Output Total 400 Balance 220 Intake, Oral 620 Output, Urine 400 Patient 181 lb Weight Weight Chair scale Measurement Method Physical Exam General Appearance: Alert, Oriented X3, Cooperative, No Acute Distress Skin: No Rashes, No Breakdown Cardiovascular: Regular Rate, Normal S1, Normal S2 Lungs: Normal Air Movement, bilateral lung base crackles Abdomen: Normal Bowel Sounds, Soft, No Tenderness Extremities: No Clubbing, No Cyanosis, trace pedal edema Current Medications: Current Medications Sig/Larissa Start time Last Medication Dose Route Stop Time Status Admin Acetaminophen 650 MG Q6P PRN 07/25 1430 AC 07/25 PO 1437 Albuterol Sulfate 3 ML Q4 HRS NEEDED PRN 07/23 1300 AC INH Albuterol Sulfate 2 PUF Q4P PRN 07/22 2130 AC INH Amlodipine Besylate 10 MG DAILY 07/26 1000 AC PO Amlodipine Besylate 5 MG DAILY 07/23 1000 DC 07/25 PO 0833 Aspirin Buffered 81 MG QPM 07/22 2200 AC 07/24 PO 2232 Atorvastatin Calcium 80 MG 1700 07/23 1700 AC 07/24 PO 1535 Budesonide/ 2 PUF BID 07/22 2200 AC 07/25 Formoterol Fumarate INH 0834 Bumetanide 2 MG BID 07/25 2200 AC PO Bumetanide 2 MG BID 07/22 2200 DC 07/25 IV 0833 Carvedilol 25 MG BID 07/22 2230 AC 07/25 PO 0833 Cholecalciferol 1,000 IU DAILY 07/23 1000 AC 07/25 PO 0829 Doxazosin Mesylate 2 MG BID 07/22 2230 AC 07/25 PO 0833 Duloxetine HCl 60 MG DAILY 07/23 1000 AC 07/25 PO 0833 Ferrous Sulfate 325 MG DAILY 07/23 1000 AC 07/25 PO 0833 Fish Oil 1,050 MG BID 07/22 2230 AC 07/25 PO 0829 Heparin Sodium 5,000 UNIT Q8 07/22 2200 AC 07/25 (Porcine) SC 1436 Hydralazine HCl 100 MG TID 07/22 2230 AC 07/25 PO 0834 Insulin Aspart 0 TIDAC/HS 07/23 1200 AC 07/25 SC 1211 Insulin Detemir 26 UNITS AT BEDTIME 07/25 2200 AC SC Insulin Detemir 30 UNITS AT BEDTIME 07/24 2200 DC 07/24 SC 2229 Isosorbide 60 MG DAILY 07/23 1000 AC 07/25 Mononitrate PO 0834 Levothyroxine Sodium 0.137 MG DAILY AC 07/24 0700 AC 07/25 PO 0646 Last 24 Hrs of Lab/Jose Alejandro Results Last 24 Hrs of Labs/Mics: Laboratory Tests 07/25/17 0626: Anion Gap 9, Estimated GFR 17 L, BUN/Creatinine Ratio 36.7 H Assessment/Plan Assessment: Assessment: 71-year-old female with a past medical history of coronary artery disease status post stents 2 in 2013, hypertension, asthma, CHF with preserved EF, CKD, diabetes, hypothyroidism who was sent to the ER by her primary care physician for evaluation of shortness of breath. #Dyspnea on exertion - Most likely secondary to CHF exacerbation - Troponins and EKG 3 negative. - Echocardiogram showed an EF of 60% and Stage 2 diastolic dysfunction. - Appreciate cardiology recommendations. Suggest switching IV Bumex to her home dose of oral Bumex because of worsening creatinine. Continue to monitor I's and O's and daily weights #Coronary artery disease - Continue aspirin, Lipitor, Coreg, hydralazine and endorse #Hypothyroidism - Appreciate endocrinology recommendations. - Increase levothyroxine to 137 MCG daily - Repeat TFTs in a week. #Diabetes - Levemir decreased to 26 units at bedtime per endocrinology - Continue NovoLog sliding scale - Continue on duloxetine for diabetic neuropathy #Hypertension - Continue on doxazosin 2 mg daily, - Amlodipine increased to 10 mg daily per cardiology recommendations. - Patient is on a Edarbi 80 mg by mouth daily, not available in our pharmacy, patient brought his own medication from home. DVT prophylaxis; subcutaneous heparin Patient is full code Problem List: 1. Diabetes mellitus 2. Acute on chronic congestive heart failure 3. Hypothyroidism 4. Hypertension Pain Ratin Pain Location: None Pain Goal: Remain pain free Pain Plan: None Tomorrow's Labs & Rationales: BEP(worsening creatinine while on Bumex) Tonja GUTIERREZ,Pe[place] 07/25/17 1122: Attending MD Review Statement Attending Statement Attending MD Statement: examined this patient, discuss w/resident/PA/TE[employer]IAN [employer], agreed w/resident/PA/TE[employer], reviewed EMR data (avail), discussed with nursing, reviewed images, amended to note Attending Assessment/Plan: 71-year-old obese pleasant female with past medical history significant for coronary artery disease status post PCI with stents, hypertension, hyperlipidemia, diabetes mellitus, COPD, diastolic heart failure, asthma, anemia , obstructive sleep apnea on CPAP, spinal stenosis status post nerve stimulator, and parathyroidectomy has been admitted to the floor for progressive shortness of breath and failing outpatient therapy for heart failure with Lasix. Patient was seen and examined on the bedside, and comfortably lying in the bed with no further complaints of shortness of breath. Given her refractoriness to Lasix she was started on Bumex 2mg IV Bid for acute on chronic heart failure evidenced by both clinical and radiological findings. Her kidney functions are gradually worsening with a creatinine bumped up from 1.9 to 2.7. Please discuss with director television for further dose adjustment as needs to cut down on bumax. Echo has been red that shows stage II diastolic heart failure with normal ejection fraction. Already seen by the drophammer operator and helped adjustment in her insulin and he does of levothyroxine given her elevated TSH. Chest xray improved her previous xrays. Will continue to the rest of her home medications and DVT prophylaxis
--- NOTE | 2017-07-25 11:41 | PN- Diabetes ---
Assessment/Plan Diabetes Assessment: The patient went to the hospital with increased shortness of breath and has been found to have congestive heart failure. The patient feels improved today. She is eating okay. We had increased her Levemir to 30 units once a day yesterday. Her fingerstick blood sugar before breakfast today is 154. She is also on sliding scale NovoLog before meals starting with 3 units for 80-150. The patient brought in a copy of her blood sugars from home. She varies her dose of Levemir from [address] up to 45 units depending on her evening blood sugar. I explained to her that we usually do not like to vary the dose of Levemir but would like to find a fixed dose that works for her. Of note her creatinine has gone up to 2.7. She has stage IV chronic kidney disease. Plan: Suggest reduce the dose of Levemir to 26 units daily. Continue the present sliding scale NovoLog. Dietary consult should be considered. The patient's serum creatinine is progressively increasing on her present regimen. Cardiology should see the patient again. Subjective Subjective: Feels okay Review of Systems Constitutional: Denies: chills, fever. Cardiovascular: Denies: chest pain. Respiratory: Denies: cough. Gastrointestinal: Denies: nausea, vomiting. Skin: Reports: no symptoms. Objective Last 24 Hrs of Vital Signs/I&O Vital Signs Date Time Temp Pulse Resp B/P B/P Pulse O2 O2 Flow FiO2 Mean Ox Delivery Rate 07/25 1135 100 Nasal 2.5L Cannula 07/25 0834 60 150/90 07/25 0834 60 150/90 07/25 0833 60 150/90 07/25 0833 60 150/90 07/25 0800 94 Nasal 2.5L Cannula 07/25 0619 97.4 54 18 151/70 96 CPAP 07/24 2316 68 96 07/24 2239 98.9 60 20 158/74 99 Nasal 3.0L Cannula 07/24 2231 72 158/76 07/24 2230 72 158/64 07/24 1534 61 164/66 07/24 1506 98.6 61 20 164/66 100 Nasal 2.5L Cannula 07/24 1357 95 Nasal 2.0L Cannula Intake & Output 07/25 1600 07/25 0800 07/25 0000 Intake Total Output Total Balance Patient 181 lb Weight Weight Chair scale Measurement Method Vital Signs Date Time Temp Pulse Resp B/P B/P Pulse O2 O2 Flow FiO2 Mean Ox Delivery Rate 07/25 1135 100 Nasal 2.5L Cannula 07/25 0834 60 150/90 07/25 0834 60 150/90 07/25 0833 60 150/90 07/25 0833 60 150/90 07/25 0800 94 Nasal 2.5L Cannula 07/25 0619 97.4 54 18 151/70 96 CPAP 07/24 2316 68 96 07/24 2239 98.9 60 20 158/74 99 Nasal 3.0L Cannula 07/24 2231 72 158/76 07/24 2230 72 158/64 07/24 1534 61 164/66 07/24 1506 98.6 61 20 164/66 100 Nasal 2.5L Cannula 07/24 1357 95 Nasal 2.0L Cannula Intake & Output 07/25 1600 07/25 0800 07/25 0000 Intake Total Output Total Balance Patient 181 lb Weight Weight Chair scale Measurement Method Physical Exam General Appearance: well developed/nourished, alert, awake Head: normal appearance Neck: normal inspection Respiratory: normal breath sounds Cardiovascular: regular rate/rhythm Abdomen: normal bowel sounds Extremities: normal inspection Current Medications: Current Medications Sig/Larissa Start time Last Medication Dose Route Stop Time Status Admin Albuterol Sulfate 3 ML Q4 HRS NEEDED PRN 07/23 1300 AC INH Albuterol Sulfate 2 PUF Q4P PRN 07/22 2130 AC INH Amlodipine Besylate 5 MG DAILY 07/23 1000 AC 07/25 PO 0833 Aspirin Buffered 81 MG QPM 07/22 2200 AC 07/24 PO 2232 Atorvastatin Calcium 80 MG 1700 07/23 1700 AC 07/24 PO 1535 Budesonide/ 2 PUF BID 07/22 2200 AC 07/25 Formoterol Fumarate INH 0834 Bumetanide 2 MG BID 07/22 2200 AC 07/25 IV 0833 Carvedilol 25 MG BID 07/22 2230 AC 07/25 PO 0833 Cholecalciferol 1,000 IU DAILY 07/23 1000 AC 07/25 PO 0829 Doxazosin Mesylate 2 MG BID 07/22 2230 AC 07/25 PO 0833 Duloxetine HCl 60 MG DAILY 07/23 1000 AC 07/25 PO 0833 Ferrous Sulfate 325 MG DAILY 07/23 1000 AC 07/25 PO 0833 Fish Oil 1,050 MG BID 07/22 2230 AC 07/25 PO 0829 Heparin Sodium 5,000 UNIT Q8 07/22 2199 AC 07/25 (Porcine) SC 0646 Hydralazine HCl 100 MG TID 07/22 223 AC 07/25 PO 0834 Insulin Aspart 0 TIDAC/HS 07/23 1200 AC 07/25 SC 0804 Insulin Detemir 30 UNITS AT BEDTIME 07/24 2199 AC 07/24 [place] 2229 Insulin Detemir 25 UNITS AT BEDTIME 07/22 2200 DC 07/23 IL 2307 Isosorbide 60 MG DAILY 07/23 1000 AC 07/25 Mononitrate PO 0834 Levothyroxine Sodium 0.137 MG DAILY AC 07/24 0700 AC 07/25 PO 0646 Findings Pertinent Lab/Jose Alejandro Results: Laboratory Tests 07/25 0626 Chemistry Sodium (137 - 145 mmol/L) 136 L Potassium (3.5 - 5.1 mmol/L) 3.7 Chloride (98 - 107 mmol/L) 95 L Carbon Dioxide (22 - 30 mmol/L) 31 H Anion Gap (5 - 16) 9 BUN (7 - 17 mg/dL) 99 H Creatinine (0.5 - 1.0 mg/dL) 2.7 H Estimated GFR (>60 ml/min) 17 L BUN/Creatinine Ratio (7 - 25 %) 36.7 H
--- NOTE | 2017-07-25 12:06 | PN- Cardiology ---
Subjective Subjective: Feeling well today. Denied significant dyspnea with ambulation. No chest pain or palpitations. Objective Vital Signs and I&Os Vital Signs Date Time Temp Pulse Resp B/P B/P Pulse O2 O2 Flow FiO2 Mean Ox Delivery Rate 07/25 1135 100 Nasal 2.5L Cannula 07/25 0834 60 150/90 07/25 0834 60 150/90 07/25 0833 60 150/90 07/25 0833 60 150/90 07/25 0800 94 Nasal 2.5L Cannula 07/25 0619 97.4 54 18 151/70 96 CPAP 07/24 2316 68 96 07/24 2239 98.9 60 20 158/74 99 Nasal 3.0L Cannula 07/24 2231 72 158/76 07/24 2230 72 158/64 07/24 1534 61 164/66 07/24 1506 98.6 61 20 164/66 100 Nasal 2.5L Cannula 07/24 1357 95 Nasal 2.0L Cannula Intake & Output 07/25 1600 07/25 0800 07/25 0000 07/24 1600 07/24 0800 07/24 0000 Intake Total 500 400 250 Output Total 500 350 Balance 0 50 250 Intake, Oral 500 400 250 Number 1 Bowel Movements Output, Urine 500 350 Patient 181 lb 189 lb 175 lb Weight Weight Chair scale Measurement Method Physical Exam: General: no apparent distress. Alert. Nasal cannula. Eyes: No obvious scleral icterus. HEENT: No jugular venous distention or abnormal jugular venous pulsations. Cardiovascular: Normal intensity S1/S2. Regular. Respiratory: No rales or rhonchi Abdomen: Soft, nontender with no guarding or rebound tenderness. Musculoskeletal: No clubbing or cyanosis noted, trace lower extremity edema Skin: Warm Neurologic: No gross focal deficits noted. Current Medications: Current Medications Sig/Larissa Start time Last Medication Dose Route Stop Time Status Admin Albuterol Sulfate 3 ML Q4 HRS NEEDED PRN 07/23 1300 AC INH Albuterol Sulfate 2 PUF Q4P PRN 07/22 2130 AC INH Amlodipine Besylate 5 MG DAILY 07/23 1000 AC 07/25 PO 0833 Aspirin Buffered 81 MG QPM 07/22 2200 AC 07/24 PO 2232 Atorvastatin Calcium 80 MG 1700 07/23 1700 AC 07/24 PO 1535 Budesonide/ 2 PUF BID 07/22 220 AC 07/25 Formoterol Fumarate INH 0834 Bumetanide 2 MG BID 07/22 2200 AC 07/25 IV 0833 Carvedilol 25 MG BID 07/22 2230 AC 07/25 PO 0833 Cholecalciferol 1,000 IU DAILY 07/23 1000 AC 07/25 PO 0829 Doxazosin Mesylate 2 MG BID 07/22 2230 AC 07/25 PO 0833 Duloxetine HCl 60 MG DAILY 07/23 1000 AC 07/25 PO 0833 Ferrous Sulfate 325 MG DAILY 07/23 1000 AC 07/25 PO 0833 Fish Oil 1,050 MG BID 07/22 2230 AC 07/25 PO 0829 Heparin Sodium 5,000 UNIT Q8 07/22 2200 AC 07/25 (Porcine) SC 0646 Hydralazine HCl 100 MG TID 07/22 2229 AC 07/25 PO 0834 Insulin Aspart 0 TIDAC/HS 07/23 1200 AC 07/25 SC 0804 Insulin Detemir 30 UNITS AT BEDTIME 07/24 2200 AC 07/24 SC 2229 Insulin Detemir 25 UNITS AT BEDTIME 07/22 2200 DC 07/23 SC 2307 Isosorbide 60 MG DAILY 07/23 1000 AC 07/25 Mononitrate PO 0834 Levothyroxine Sodium 0.137 MG DAILY AC 07/24 0700 AC 07/25 PO 0646 Results Last 48 Hrs of Labs/Mics: Laboratory Tests 07/25/17 0626: Anion Gap 9, Estimated GFR 17 L, BUN/Creatinine Ratio 36.7 H 07/24/17 0610: Anion Gap 14, Estimated GFR 20 L, BUN/Creatinine Ratio 38.3 H Recent Imaging Studies: Telemetry tracings were personally reviewed and shows sinus rhythm and sinus bradycardia CXR yesterday IMPRESSION: No significant changes in central pulmonary vascular congestion. More peripheral interstitial prominence is slightly improved. Small pleural effusions. No new airspace disease. Cardiomegaly. Assessment/Plan Assessment/Plan 1. Increasing shortness of breath, likely related to acute on chronic heart failure with preserved ejection fraction 2. Hypertension 3. Hypothyroidism significantly elevated TSH of 18 4. Lower extremity edema 5. Normocytic anemia 6. Chronic renal insufficiency Patient is feeling better and denies any dyspnea at rest or with ambulation. As her creatinine is trending up I would switch her back to her oral Bumex regimen. Echocardiogram showed normal ejection fraction with pseudo-normal filling. She remains in sinus rhythm on telemetry. If blood pressure remains above goal can consider increasing the amlodipine to 10 mg daily. Rubens Barron MD [facility] Continue telemetry? Yes
[2017-07-25 16:26] VITALS: BP 128/56
[2017-07-25 21:44] VITALS: BP 132/58
[2017-07-26 06:35] VITALS: BP 164/60
--- NOTE | 2017-07-26 07:03 | PN- Housestaff ---
Anna Marie GUTIERREZ,[facility] 07/26/17 0703: Subjective Follow-up For: Acute on chronic CHF Tele-Events Since Last Visit: Sinus bradycardia with first-degree AV block Heart rate in mid 50s Subjective: Patient states she feels better. Wouldn't want to be tapered off the oxygen before going home. Review of Systems Constitutional: Reports: no symptoms. EENTM: Reports: no symptoms. Cardiovascular: Reports: no symptoms. Respiratory: Reports: no symptoms. Gastrointestinal: Reports: no symptoms. Genitourinary: Reports: no symptoms. Musculoskeletal: Reports: no symptoms. Skin: Reports: no symptoms. Neurological/Psychological: Reports: no symptoms. Hematologic/Endocrine: Reports: no symptoms. Immunologic/Allergic: Reports: no symptoms. Objective Last 24 Hrs of Vital Signs/I&O Vital Signs Date Time Temp Pulse Resp B/P B/P Pulse O2 O2 Flow FiO2 Mean Ox Delivery Rate 07/26 1408 98.0 55 20 138/50 100 Nasal 2.5L Cannula 07/26 1039 100 Nasal 2.0L Cannula 07/26 1031 60 164/60 07/26 1031 164/60 07/26 1031 164/60 07/26 1031 164/60 07/26 0800 Nasal 2.5L Cannula 07/26 0635 97.4 60 20 164/60 94 CPAP 07/26 0000 CPAP 07/25 2233 62 9 07/25 2144 98.1 63 16 132/58 96 07/25 1652 60 Intake & Output 07/26 1600 07/26 0800 07/26 0000 Intake Total 240 110 250 Output Total 1000 Balance -760 110 250 Intake, IV 10 Intake, Oral 240 100 250 Output, Urine 1000 Patient 181 lb Weight Weight Bed scale Measurement Method Physical Exam General Appearance: Alert, Oriented X3, Cooperative, No Acute Distress Skin: No Rashes, No Breakdown Cardiovascular: Regular Rate, Normal S1, Normal S2 Lungs: Normal Air Movement, mild bibasilar crackles Abdomen: Normal Bowel Sounds, Soft, No Tenderness Extremities: No Clubbing, No Cyanosis, trace pedal edema Current Medications: Current Medications Sig/Larissa Start time Last Medication Dose Route Stop Time Status Admin Acetaminophen 650 MG Q6P PRN 07/25 1430 AC 07/25 PO 1437 Albuterol Sulfate 3 ML Q4 HRS NEEDED PRN 07/23 1300 DC INH Albuterol Sulfate 2 PUF Q4P PRN 07/22 2130 AC INH Amlodipine Besylate 10 MG DAILY 07/26 1000 AC 07/26 PO 1031 Aspirin Buffered 81 MG QPM 07/22 2200 AC 07/25 PO 2209 Atorvastatin Calcium 80 MG 1700 07/23 1700 AC 07/25 PO 1651 Budesonide/ 2 PUF BID 07/22 2200 AC 07/26 Formoterol Fumarate INH 1030 Bumetanide 2 MG BID 07/25 2200 AC 07/26 PO 1031 Carvedilol 25 MG BID 07/22 2230 AC 07/26 PO 1031 Cholecalciferol 1,000 IU DAILY 07/23 1000 AC 07/26 PO 1031 Doxazosin Mesylate 2 MG BID 07/22 2230 AC 07/26 PO 1031 Duloxetine HCl 60 MG DAILY 07/23 1000 AC 07/26 PO 1031 Ferrous Sulfate 325 MG DAILY 07/23 1000 AC 07/26 PO 1031 Fish Oil 1,050 MG BID 07/22 2230 AC 07/26 PO 1032 Heparin Sodium 5,000 UNIT Q8 07/22 2200 AC 07/26 (Porcine) SC 0613 Hydralazine HCl 100 MG TID 07/22 2230 AC 07/26 PO 1031 Insulin Aspart 0 TIDAC/HS 07/23 1200 AC 07/26 SC 1221 Insulin Detemir 26 UNITS AT BEDTIME 07/25 2200 AC 07/25 SC 2209 Isosorbide 60 MG DAILY 07/23 1000 AC 07/26 Mononitrate PO 1031 Levothyroxine Sodium 0.137 MG DAILY AC 07/24 0700 AC 07/26 PO 0613 Last 24 Hrs of Lab/Jose Alejandro Results Last 24 Hrs of Labs/Mics: Laboratory Tests 07/26/17 0630: Anion Gap 13, Estimated GFR 18 L, BUN/Creatinine Ratio 41.2 H Assessment/Plan Assessment: Assessment: 71-year-old female with a past medical history of coronary artery disease status post stents 2 in 2013, hypertension, asthma, CHF with preserved EF, CKD, diabetes, hypothyroidism who was sent to the ER by her primary care physician for evaluation of shortness of breath. #Dyspnea on exertion - Most likely secondary to CHF exacerbation - Troponins and EKG 3 negative. - Echocardiogram showed an EF of 60% and Stage 2 diastolic dysfunction. - Appreciate cardiology recommendations. - Continue by mouth Bumex 2 mg twice a day. We will repeat BEP tomorrow morning , if the creatinine improves patient can be sent home on current dose of Bumex. - Continue to monitor I's and O's and daily weights. - Try to taper off oxygen. #Coronary artery disease - Continue aspirin, Lipitor, Coreg, hydralazine and endorse #Hypothyroidism - Appreciate endocrinology recommendations. - Continue levothyroxine 137 MCG daily - Repeat TFTs in a week. #Diabetes - Continue Levemir 26 units at bedtime. - Continue NovoLog sliding scale - Continue on duloxetine for diabetic neuropathy #Hypertension - Continue on doxazosin 2 mg daily, -Continue amlodipine 10 mg daily.. - Patient is on a Edarbi 80 mg by mouth daily, not available in our pharmacy, patient brought his own medication from home. DVT prophylaxis; subcutaneous heparin Patient is full code Problem List: 1. CHF (congestive heart failure) Pain Ratin Pain Location: None Pain Goal: Remain pain free Pain Plan: None Tomorrow's Labs & Rationales: BEP(worsening creatinine on Bumex) Rita Villavicencio MD 07/26/17 1405: Attending MD Review Statement Attending Statement Attending MD Statement: examined this patient, discuss w/resident/PA/TECHNICAL MGR, agreed w/resident/PA/TECHNICAL MGR, reviewed EMR data (avail), discussed with nursing, discussed with case mgmt, reviewed images Attending Assessment/Plan: Patient feels better and her breathing is back to her baseline. She is back on her 2.5 L nasal cannula that she takes all the time and CPAP at night. We treated her for diastolic heart failure and she is relatively diuretic resistance so she responded to IV Bumex. She also has CKD and she had STEVE over CKD and her creatinine peaked at 2.8. I am still concerned about the creatinine. We switched her to by mouth Bumex but the cre is 2.7 today and I worry about the fragility of her renal status. At this point will keep her on the 2mg twice a day of Bumex and watch the creatinine closely. If it's stable then will anticipate discharge in the next 24 hours.
--- NOTE | 2017-07-26 08:29 | PN- Diabetes ---
Assessment/Plan Diabetes Assessment: 71-year-old female with past medical history of coronary artery disease status post 2 stent, asthma, hypertension, hyperlipidemia, diabetes type 2, stage III kidney disease, hypothyroidism, congestive heart failure came to ER for progressive shortness of breath. Blood work showed TSH 18.1 and free T4 1.3. She was on Levothyroxine 125 mcg daily. In 06/2017, her TSH was 14.5 and free T4 1.37. Levothyroxine was increased to 137 mcg daily. With regards to diabetes, she was on Levemir 30-40 units daily at bedtime, Novolog coverage before meals according to the scale at home. In hospital, she was put on Levbemir 26 units daily at bedtime and Novolog coverage before meals. Her FSGs were 179, 199 and 188. Repeat CR 2.6. Plan: 1. continue the current insulin regimen for now; 2. continue monitoring FSGs; 3, request nutrition consult; 4. continue Levothyroxine 137 mcg daily; 5. monitor TSH, free T4 tomorrow. will follow. Subjective Subjective: She feels better. Objective Last 24 Hrs of Vital Signs/I&O Vital Signs Date Time Temp Pulse Resp B/P B/P Pulse O2 O2 Flow FiO2 Mean Ox Delivery Rate 07/26 0635 97.4 60 20 164/60 94 CPAP 07/26 0000 CPAP 07/25 2233 62 9 07/25 2144 98.1 63 16 132/58 96 07/25 1652 60 07/25 1626 98.7 87 20 128/56 100 Nasal 2.5L Cannula 07/25 1600 94 Nasal 2.5L Cannula 07/25 1135 100 Nasal 2.5L Cannula 07/25 0834 60 150/90 07/25 0834 60 150/90 07/25 0833 60 150/90 07/25 0833 60 150/90 Intake & Output 07/26 1600 07/26 0800 07/26 0000 Intake Total 110 250 Output Total Balance 110 250 Intake, IV 10 Intake, Oral 100 250 Patient 181 lb Weight Weight Bed scale Measurement Method Findings Pertinent Lab/Jose Alejandro Results: Laboratory Tests 07/26 0630 Chemistry Sodium (137 - 145 mmol/L) 138 Potassium (3.5 - 5.1 mmol/L) 3.9 Chloride (98 - 107 mmol/L) 97 L Carbon Dioxide (22 - 30 mmol/L) 27 Anion Gap (5 - 16) 13 BUN (7 - 17 mg/dL) 107 *H Creatinine (0.5 - 1.0 mg/dL) 2.6 H Estimated GFR (>60 ml/min) 18 L BUN/Creatinine Ratio (7 - 25 %) 41.2 H
--- NOTE | 2017-07-26 10:09 | PN- Cardiology ---
Subjective Subjective: Feeling better. Shortness of breath has resolved. No chest pain. No palpitations. No diaphoresis. Lower extremity edema is improved Objective Vital Signs and I&Os Vital Signs Date Time Temp Pulse Resp B/P B/P Pulse O2 O2 Flow FiO2 Mean Ox Delivery Rate 07/26 0635 97.4 60 20 164/60 94 CPAP 07/26 0000 CPAP 07/25 2233 62 9 07/25 2144 98.1 63 16 132/58 96 07/25 1652 60 07/25 1626 98.7 87 20 128/56 100 Nasal 2.5L Cannula 07/25 1600 94 Nasal 2.5L Cannula 07/25 1135 100 Nasal 2.5L Cannula Intake & Output 07/26 1600 07/26 0800 07/26 0000 07/25 1600 07/25 0800 07/25 0000 Intake Total 110 250 620 Output Total 400 Balance 110 250 220 Intake, IV 10 Intake, Oral 100 250 620 Output, Urine 400 Patient 181 lb 181 lb Weight Weight Bed scale Chair scale Measurement Method Physical Exam: General: no apparent distress. Alert. Nasal cannula. Eyes: No obvious scleral icterus. HEENT: No jugular venous distention or abnormal jugular venous pulsations. Cardiovascular: Normal intensity S1/S2. Regular. Respiratory: No rales or rhonchi Abdomen: Soft, nontender with no guarding or rebound tenderness. Musculoskeletal: No clubbing or cyanosis noted, trace lower extremity edema Skin: Warm Neurologic: No gross focal deficits noted. Current Medications: Current Medications Sig/Larissa Start time Last Medication Dose Route Stop Time Status Admin Acetaminophen 650 MG Q6P PRN 07/25 1430 AC 07/25 PO 1437 Albuterol Sulfate 3 ML Q4 HRS NEEDED PRN 07/23 1300 AC INH Albuterol Sulfate 2 PUF Q4P PRN 07/22 2130 AC INH Amlodipine Besylate 10 MG DAILY 07/26 1000 AC PO Amlodipine Besylate 5 MG DAILY 07/23 1000 DC 07/25 PO 0833 Aspirin Buffered 81 MG QPM 07/22 2200 AC 07/25 PO 220 Atorvastatin Calcium 80 MG 1700 07/23 1700 AC 07/25 PO 1651 Budesonide/ 2 PUF BID 07/22 220 AC 07/25 Formoterol Fumarate INH 220 Bumetanide 2 MG BID 07/25 2199 AC 07/25 PO 220 Bumetanide 2 MG BID 07/22 2200 DC 07/25 IV 0833 Carvedilol 25 MG BID 07/22 2230 AC 07/25 PO 2209 Cholecalciferol 1,000 IU DAILY 07/23 1000 AC 07/25 PO 0829 Doxazosin Mesylate 2 MG BID 07/22 2230 AC 07/25 PO 2209 Duloxetine HCl 60 MG DAILY 07/23 1000 AC 07/25 PO 0833 Ferrous Sulfate 325 MG DAILY 07/23 1000 AC 07/25 PO 0833 Fish Oil 1,050 MG BID 07/22 2230 AC 07/25 PO 2210 Heparin Sodium 5,000 UNIT Q8 07/22 220 AC 07/26 (Porcine) SC 0613 Hydralazine HCl 100 MG TID 07/22 223 AC 07/25 PO 2208 Insulin Aspart 0 TIDAC/HS 07/23 1200 AC 07/26 SC 0754 Insulin Detemir 26 UNITS AT BEDTIME 07/25 2200 AC 07/25 SC 2209 Insulin Detemir 30 UNITS AT BEDTIME 07/24 2200 DC 07/24 SC 2229 Isosorbide 60 MG DAILY 07/23 1000 AC 07/25 Mononitrate PO 0834 Levothyroxine Sodium 0.137 MG DAILY AC 07/24 0700 AC 07/26 PO 0613 Results Last 48 Hrs of Labs/Mics: Laboratory Tests 07/26/17 0630: Anion Gap 13, Estimated GFR 18 L, BUN/Creatinine Ratio 41.2 H 07/25/17 0626: Anion Gap 9, Estimated GFR 17 L, BUN/Creatinine Ratio 36.7 H Assessment/Plan Assessment/Plan 1. Increasing shortness of breath, likely related to acute on chronic heart failure with preserved ejection fraction 2. Hypertension 3. Hypothyroidism significantly elevated TSH of 18 4. Lower extremity edema 5. Normocytic anemia 6. Chronic renal insufficiency Recommendations: * Continue oral Bumex 2 mg p.o. twice daily * Continue current hypertension medications * Possible discharge today if stable * Follow up in the office with Dr. Mtz 1 week after discharge * Basic metabolic profile should be rechecked as an outpatient Continue telemetry? Yes
[2017-07-26 14:08] VITALS: BP 138/50
[2017-07-26] MEDS ORDERED: LEVOTHYROXINE137 MCG PO (15:41)
[2017-07-26] MEDS ORDERED: NORVASC10 M1 PO (15:41)
[2017-07-26] MEDS ORDERED: LEVEMIR100 UNIT/1 SC (15:41)
--- NOTE | 2017-07-26 15:48 | Patient Discharge Instructions ---
Discharge Instructions General Discharge Information You were seen/treated for: CHF exacerbation Hypothyroidism Diabetes Special Instructions: 1. Please follow up with your PCP within a week after discharge. 2. Please follow up with your Housekeeper Caregiver within a week after discharge. Check your Basic electrolyte panel blood test on 07/29/17 and report results to your mold cleaning and storage supervisor, Dr. Mtz to monitor your blood urea and creatinine which was elevated on admission. 3. Please follow up with your Fish And Wildlife Technician within a week after discharge. Diet Continue normal diet: Yes Recommended Diet: Diabetic, Heart Healthy Activity Full Activity/No Limits: No Activity Self Limited: Yes Acute Coronary Syndrome Inclusion Criteria At DC or during hospital stay patient has or had the following: ACS DIAGNOSIS No Discharge Core Measures Meds if any: Prescribed or Continued at Discharge Meds if any: NOT Prescribed or Continued at Discharge Congestive Heart Failure Inclusion Criteria At DC or during hospital stay patient has or had the following: CHF DIAGNOSIS Yes Discharge Core Measures Meds if any: Prescribed or Continued at Discharge Meds if any: NOT Prescribed or Continued at Discharge Cerebrovascular accident Inclusion Criteria At DC or during hospital stay patient has or had the following: CVA/TIA Diagnosis No Discharge Core Measures Meds if any: Prescribed or Continued at Discharge Meds if any: NOT Prescribed or Continued at Discharge Venous thromboembolism Inclusion Criteria VTE Diagnosis No VTE Type NONE VTE Confirmed by (Test) NONE Discharge Core Measures - Per Current guidelines, there needs to be overlap - treatment for the first 5 days of Warfarin therapy. - If discharged on Warfarin prior to 5 days of - overlap therapy, the patient will need to be - assessed for post discharge needs including - *Post discharge parental anticoagulation - *Warfarin and/or parental anticoagulation education - *Follow up date to check INR post discharge At least 5 days overlap therapy as Inpatient No Meds if any: Prescribed or Continued at Discharge Note: Overlap Therapy is Warfarin and Anticoagulant Meds if any: NOT Prescribed or Continued at Discharge Meds if any: NOT Prescribed or Continued at Discharge
[2017-07-26 22:08] VITALS: BP 148/60
[2017-07-27 06:58] VITALS: BP 160/58
--- NOTE | 2017-07-27 07:19 | PN- Housestaff ---
Anna Marie GUTIERREZ,[facility] 07/27/17 0718: Subjective Follow-up For: Acute on chronic CHF Hypothyroidism Diabetes Acute on chronic CKD Tele-Events Since Last Visit: Normal sinus rhythm/Sinus bradycardia with first-degree AV block Heart rate 53-87 Subjective: Patient states she feels much improved and she was able to take a walk off oxygen last evening without getting short of breath. Denies any chest pain, palpitations, leg swelling. Review of Systems Constitutional: Reports: no symptoms. EENTM: Reports: no symptoms. Cardiovascular: Reports: no symptoms. Respiratory: Reports: no symptoms. Gastrointestinal: Reports: no symptoms. Genitourinary: Reports: no symptoms. Musculoskeletal: Reports: no symptoms. Skin: Reports: no symptoms. Neurological/Psychological: Reports: no symptoms. Hematologic/Endocrine: Reports: no symptoms. Immunologic/Allergic: Reports: no symptoms. Objective Last 24 Hrs of Vital Signs/I&O Vital Signs Date Time Temp Pulse Resp B/P B/P Pulse O2 O2 Flow FiO2 Mean Ox Delivery Rate 07/27 1020 18 94 Room Air 07/27 1011 59 160/58 07/27 1010 59 160/58 07/27 1010 59 160/58 07/27 1010 59 160/58 07/27 0658 98.2 59 20 160/58 96 CPAP 07/27 0043 59 95 07/26 2226 67 96 07/26 2208 98.5 67 20 148/60 94 Room Air 07/26 2120 66 148/68 07/26 2120 66 148/68 07/26 1659 63 132/70 07/26 1408 98.0 55 20 138/50 100 Nasal 2.5L Cannula Intake & Output 07/27 1600 07/27 0800 07/27 0000 Intake Total 110 574 Output Total 700 700 Balance -590 -126 Intake, IV 10 Intake, Oral 100 574 Output, Urine 700 700 Physical Exam General Appearance: Alert, Oriented X3, Cooperative Skin: No Rashes, No Breakdown Cardiovascular: Regular Rate, Normal S1, Normal S2 Lungs: Normal Air Movement, crackles bilateral lung bases,left > right Abdomen: Normal Bowel Sounds, Soft, No Tenderness Extremities: No Clubbing, No Cyanosis, trace pedal edema Current Medications: Current Medications Sig/Larissa Start time Last Medication Dose Route Stop Time Status Admin Acetaminophen 650 MG Q6P PRN 07/25 1430 DCD 07/25 PO 1437 Albuterol Sulfate 3 ML Q4 HRS NEEDED PRN 07/23 1300 DC INH Albuterol Sulfate 2 PUF Q4P PRN 07/22 2130 DCD INH Amlodipine Besylate 10 MG DAILY 07/26 1000 DCD 07/27 PO 1010 Aspirin Buffered 81 MG QPM 07/22 2200 DCD 07/26 PO 2116 Atorvastatin Calcium 80 MG 1700 07/23 1700 DCD 07/26 PO 1657 Budesonide/ 2 PUF BID 07/22 2200 DCD 07/27 Formoterol Fumarate INH 1011 Bumetanide 2 MG BID 07/25 220 DCD 07/27 PO 1011 Carvedilol 25 MG BID 07/22 2230 DCD 07/27 PO 1011 Cholecalciferol 1,000 IU DAILY 07/23 1000 DCD 07/27 PO 1010 Doxazosin Mesylate 2 MG BID 07/22 2230 DCD 07/27 PO 1010 Duloxetine HCl 60 MG DAILY 07/23 1000 DCD 07/27 PO 1010 Ferrous Sulfate 325 MG DAILY 07/23 1000 DCD 07/27 PO 1010 Fish Oil 1,050 MG BID 07/22 2230 DCD 07/27 PO 1009 Heparin Sodium 5,000 UNIT Q8 07/22 2199 DCD 07/27 (Porcine) SC 0631 Hydralazine HCl 100 MG TID 07/22 223 DCD 07/27 PO 1010 Insulin Aspart 0 TIDAC/HS 07/23 1200 DCD 07/27 SC 0754 Insulin Detemir 26 UNITS AT BEDTIME 07/25 2199 DCD 07/26 SC 2123 Isosorbide 60 MG DAILY 07/23 1000 DCD 07/27 Mononitrate PO 1010 Levothyroxine Sodium 0.137 MG DAILY AC 07/24 0700 DCD 07/27 PO 0640 Potassium Chloride 40 MEQ ONCE ONE 07/27 0830 DC 07/27 PO 07/27 0831 1008 Last 24 Hrs of Lab/Jose Alejandro Results Last 24 Hrs of Labs/Mics: Laboratory Tests 07/27/17 0627: Anion Gap 12, Estimated GFR 22 L, BUN/Creatinine Ratio 46.4 H, TSH 21.900 H, Free T4 1.24 Assessment/Plan Assessment: 71-year-old female with a past medical history of coronary artery disease status post stents 2 in 2014, hypertension, asthma, CHF with preserved EF, CKD, diabetes, hypothyroidism who was sent to the ER by her primary care physician for evaluation of shortness of breath. #Dyspnea on exertion - Likely secondary to CHF exacerbation - Echocardiogram showed an EF of 60% and Stage 2 diastolic dysfunction. - Appreciate cardiology recommendations. - Continue by mouth Bumex 2 mg twice a day. Creatinine and BUN this morning are 2.2 and 102, improved from yesterday(2.7 and 107). Patient advised to repeat her BEP in 2 days after discharge to ensure improvement of creatinine in the BUN back to her baseline. - Continue to monitor I's and O's and daily weights. -Patient is off supplemental oxygen, O2 sats were 94% on room air while ambulating. #Coronary artery disease - Continue aspirin, Lipitor, Coreg, hydralazine and endorse #Hypothyroidism - Appreciate endocrinology recommendations. -Repeat TSH this morning was 21(increased from 18). Levothyroxine was increased to 150 MCG daily per endocrinology recommendations. Also recommends repeating TFTs in 2 weeks. #Diabetes - Continue Levemir 26 units at bedtime. - Continue NovoLog sliding scale - Continue on duloxetine for diabetic neuropathy #Hypertension - Continue on doxazosin, amlodipine and Edarbi. DVT prophylaxis; subcutaneous heparin Patient is full code Problem List: 1. Acute on chronic congestive heart failure 2. Diabetes 3. Renal insufficiency Pain Ratin Pain Location: None Pain Goal: Remain pain free Pain Plan: None Tomorrow's Labs & Rationales: None Maye GUTIERREZ,Rita 07/27/17 1309: Attending MD Review Statement Attending Statement Attending MD Statement: examined this patient, discuss w/resident/PA/ASSET PROTECTION PROFESSIONAL, agreed w/resident/PA/ASSET PROTECTION PROFESSIONAL, reviewed EMR data (avail), discussed with nursing, discussed with case mgmt, reviewed images Attending Assessment/Plan: Pt feels well and is eager to leave. I sat down and explained to the patient at length the issue with the renal function and the delicate balance between STEVE and volume overload. We are treating her for acute diastolic heart failure in the setting of chronic normocytic anemia, hypertension and diabetes. Dr. crawford has been helping us out with the hypothyroidism and her recommendation is to increase the levothyroxine all the way to 150 g. The patient is going to leave on Bumex 2 twice a day and continue all of her other medications including her arb as she was taking here. She was taking her own arb here- is nonformulary in the hospital throughout. Her creatinine has settled down at 2.2 which is her baseline a BUN is all the way to 100. I asked for a repeat electrolyte panel with BUN and creatinine on and to report results to her lead caster helper. She's also been set up at the CHF clinic and with visiting nurse and she understands closely that she is very high risk for readmissions. Total time spent coordinating discharge and talking to the patient was 35 minutes.
--- NOTE | 2017-07-27 07:24 | Discharge Summary ---
Visit Information Visit Dates Admission Date: 07/22/17 Discharge Date: 07/27/17 Hospital Course Course Attending Physician: Maye GUTIERREZ,Rita Machuca Primary Care Physician: Sal GUTIERREZ,[facility] Course: 71-year-old female with a past medical history of coronary artery disease status post stents 2 in 2013, hypertension, asthma, CHF with preserved EF, CKD, diabetes, hypothyroidism who was sent to the ER by her primary care physician for evaluation of shortness of breath. Patient was admitted to telemetry floor and following issues were addressed; - Acute on chronic CHF - Coronary artery disease - Hypothyroidism - Diabetes - Hypertension #Acute on chronic CHF - Patient presented with shortness of breath which was found to be secondary to CHF exacerbation. ACS was ruled out with negative troponin and EKG 3. She was started on IV Bumex 2 mg twice a day per cardiology recommendations. Echocardiogram was obtained which showed an EF of 60% and Stage 2 diastolic dysfunction. She was also continued on supplemental oxygen to keep O2 sats above 90%. I's and O's and daily weights were monitored. She had worsening of her creatinine while on IV Bumex, which was improved after she was switched to by mouth diuretics. She is instructed to repeat her BEP in 2 days to ensure further improvement in BUN and creatinine. #Coronary artery disease Aspirin, Lipitor, Coreg, hydralazine and endorse were continued. #Hypothyroidism Patient's TSH has been slightly worsened from 16 to 18 after she her dose of levothyroxine was decreased to 125 recently as an outpatient. Endocrinology was consulted who recommended increasing the levothyroxine back to 137 mcg daily. Repeat TFTs showed even higher TSH of 21, and levothyroxine was further increased to 150 MCG daily. Will follow up with Dr. crawford as an outpatient. #Diabetes Patient was continued on Levemir 26 units at bedtime and insulin sliding scale. Duloxetine was also continued for diabetic neuropathy. #Hypertension Doxazosin and Edarbi were continued. Amlodipine was increased from 5 to 10 mg daily to keep the blood pressure below 140/80. DVT prophylaxis; subcutaneous heparin Patient is full code. Sat down with pt and explained to the patient at length the issue with the renal function and the delicate balance between STEVE and volume overload. We are treating her for acute diastolic heart failure in the setting of chronic normocytic anemia, hypertension and diabetes. Dr. crawford has been helping us out with the hypothyroidism and her recommendation is to increase the levothyroxine all the way to 150 g. The patient is going to leave on Bumex 2 twice a day and continue all of her other medications including her arb as she was taking here. She was taking her own arb here- is nonformulary in the hospital throughout. Her creatinine has settled down at 2.2 which is her baseline a BUN is all the way to 100. I asked for a repeat electrolyte panel with BUN and creatinine on and to report results to her medical facilities section director. She's also been set up at the CHF clinic and with visiting nurse and she understands closely that she is very high risk for readmissions. Total time spent coordinating discharge and talking to the patient was 35 minutes. Allergies: Coded Allergies: povidone-iodine (From BETADINE) (RASH 04/11/17) ITCH PER ANTIBIOTIC ORDER SHEET OF 12/04/16 (SJS) soap (From BETADINE) (RASH 04/11/17) PARISH Inhibitors (Mild, COUGH 04/11/17) Significant Procedures: RY-CHEST XRAY, TWO VIEWS 07/22/17 IMPRESSION: Interstitial edema and small effusions. XRY-PORTABLE CHEST XRAY IMPRESSION: No significant changes in central pulmonary vascular congestion. More peripheral interstitial prominence is slightly improved. Small pleural effusions. No new airspace disease. Cardiomegaly. ECHOCARDIOGRAM CONCLUSIONS Normal size left ventricle. Mild concentric left ventricular hypertrophy. Normal left ventricular ejection fraction visually estimated at > 60%. "pseudonormal" filling pattern of the left ventricle for age (stage 2 diastolic dysfunction). Mild left atrial dilatation. Mild mitral regurgitation. Mild aortic regurgitation. Right ventricular systolic pressure estimated to be elevated at 49 mmHg. Trace pulmonic regurgitation. Disposition Summary Disposition Principal Diagnosis: Acute on chronic diastolic CHF STEVE on CKD Hypothyroidism Additional Diagnosis: Diabetes Hypertension Hypothyroidism Chronic Anemia Discharge Disposition: home health services Discharge Instructions General Discharge Information Code Status: Full Code Patient's Diet: Diabetic Patient's Activity: As tolerated Follow-Up Instructions/Appts: 1. Please follow up with your PCP within a week after discharge. 2. Please follow up with your Plumbing Instructor within a week after discharge. Check your Basic electrolyte panel blood test on 07/29/17 and report results to your medical facilities section director, Dr. Mtz to monitor your blood urea and creatinine which was elevated on admission. 3. Please follow up with your Gardener within a week after discharge. Medications at Discharge Discharge Medications: Stop taking the following medications: Amlodipine Besylate (Amlodipine Besylate) 5 MG TABLET ORAL DAILY Levothyroxine Sodium (Synthroid) 125 MCG TABLET ORAL DAILY Qty = 30 Continue taking these medications: Hydralazine HCl (Hydralazine HCl) 100 MG TABLET 1 Tablet ORAL THREE TIMES DAILY Comments: Fluticasone/Salmeterol (Advair 250-50 Diskus) 1 EACH BLST.W.DEV 1 Puff Inhale through mouth TWICE DAILY Rosuvastatin Calcium (Crestor) 20 MG TABLET 1 Tablet ORAL Every night Comments: GIVEN LIPITOR IN HOSPITAL Last Taken: 06/09/17 Time: 817 Carvedilol (Coreg) 25 MG TABLET 1 Tablet ORAL TWICE DAILY Qty = 30 Comments: Albuterol Sulfate (Proair Hfa) 90 MCG HFA.AER.AD 1 Puff Inhale through mouth As Directed as needed for ASTHMA Comments: NOT GIVEN IN HOSPITAL Aspirin (Ecotrin*) 81 MG TABLET.DR 1 Tablet ORAL Every night Comments: Last Taken: 06/07/17 Time: 2119 Alpha Lipoic Acid (Alpha Lipoic Acid) 300 MG CAPSULE 2 Capsule ORAL TWICE DAILY Comments: NOT GIVEN IN HOSPITAL Cholecalciferol (Vitamin D3) (Vitamin D) 1,000 UNIT TABLET 2 Tablet ORAL DAILY Comments: NOT GIVEN IN HOSPITAL Ferrous Sulfate (Ferrous Sulfate) 325 MG (65 MG IRON) TABLET.DR 1 Tablet ORAL DAILY Qty = 30 Comments: Bumetanide (Bumetanide) 1 MG TABLET 2 Tablet ORAL TWICE DAILY Comments: Last Taken: 06/09/17 Time: 08 Duloxetine HCl (Duloxetine HCl) 60 MG CAPSULE.DR 1 Capsule ORAL DAILY Levocetirizine Dihydrochloride (Levocetirizine Dihydrochloride) 5 MG TABLET 1 Tablet ORAL Every night Qty = 30 Comments: NOT GIVEN IN HOSPITAL Azilsartan Medoxomil (Edarbi) 80 MG TABLET 1 Tablet ORAL DAILY Isosorbide Mononitrate (Isosorbide Mononitrate ER) 60 MG TAB.ER.24H 1 Tablet ORAL DAILY Doxazosin Mesylate (Cardura) 2 MG TABLET 1 Tablet ORAL TWICE DAILY Insulin Aspart (Novolog) 100 UNIT/ML VIAL Units Inject into fatty tissue 3 TIMES DAILY BEFORE MEALS [place]-3 Fatty Acids/Fish Oil (Fish Oil 1,000 MG Capsule) 340 MG-1,000 MG CAPSULE 1 Capsule ORAL THREE TIMES DAILY Difluprednate (Durezol) 0.05 % DROPS 1 Drop Right Eye THREE TIMES DAILY Qty = 5 Start taking the following new medications: Amlodipine Besylate (Norvasc) 10 MG TABLET 1 Tablet ORAL DAILY Qty = 30 No Refills Instructions: . Levothyroxine Sodium (Levothyroxine Sodium) 150 MCG TABLET 1 Tablet ORAL DAILY Qty = 30 No Refills Instructions: . The following medications have been changed: Old: Insulin Detemir (Levemir) 100 UNIT/ML VIAL 20-30 Units Inject into fatty tissue Every night New: Insulin Detemir (Levemir) 100 UNIT/ML VIAL 26 Units Inject into fatty tissue Every night Qty = 1 Copies To: Sal GUTIERREZ,Jacinta; Marcio Mtz MD
[2017-07-27] MEDS ORDERED: LEVOTHYROXINE150 MCG PO ×2 (10:05→10:07)
[2017-07-27] MEDS ORDERED: NORVASC10 M1 PO (10:07)
[2017-07-27 10:11] VITALS: BP 160/58
--- NOTE | 2017-07-27 11:32 | PN- Diabetes ---
Assessment/Plan Diabetes Assessment: 71-year-old female with past medical history of coronary artery disease status post 2 stent, asthma, hypertension, hyperlipidemia, diabetes type 2, stage III kidney disease, hypothyroidism, congestive heart failure came to ER for progressive shortness of breath. Blood work showed TSH 18.1 and free T4 1.3. She was on Levothyroxine 125 mcg daily. In 06/2017, her TSH was 14.5 and free T4 1.37. Levothyroxine was increased to 137 mcg daily. Repeat TFT today showed TSH 21.9 and free T4 1.24. With regards to diabetes, she was on Levemir 30-40 units daily at bedtime, Novolog coverage before meals according to the scale at home. In hospital, she was put on Levbemir 26 units daily at bedtime and Novolog coverage before meals. Her FSGs were 188, 135, 215, 201 and 133. Repeat CR 2.2. Plan: 1. continue the current insulin regimen for now; 2. increase Levothyroxine to 150 mcg daily; 3. monitor FSGs. 4. repeat TFT in 2 weeks 5. f/u in office after discharge. Subjective Subjective: She feels well this morning. Objective Last 24 Hrs of Vital Signs/I&O Vital Signs Date Time Temp Pulse Resp B/P B/P Pulse O2 O2 Flow FiO2 Mean Ox Delivery Rate 07/27 1020 18 94 Room Air 07/27 1011 59 160/58 07/27 1010 59 160/58 07/27 1010 59 160/58 07/27 1010 59 160/58 07/27 0658 98.2 59 20 160/58 96 CPAP 07/27 0043 59 95 07/26 2226 67 96 07/26 2208 98.5 67 20 148/60 94 Room Air 07/26 2120 66 148/68 07/26 2120 66 148/68 07/26 1659 63 132/70 07/26 1408 98.0 55 20 138/50 100 Nasal 2.5L Cannula Intake & Output 07/27 1600 07/27 0800 07/27 0000 Intake Total 110 574 Output Total 700 700 Balance -590 -126 Intake, IV 10 Intake, Oral 100 574 Output, Urine 700 700 Findings Pertinent Lab/Jose Alejandro Results: Laboratory Tests 07/27 06 Chemistry Sodium (137 - 145 mmol/L) 138 Potassium (3.5 - 5.1 mmol/L) 3.7 Chloride (98 - 107 mmol/L) 100 Carbon Dioxide (22 - 30 mmol/L) 26 Anion Gap (5 - 16) 12 BUN (7 - 17 mg/dL) 102 *H Creatinine (0.5 - 1.0 mg/dL) 2.2 H Estimated GFR (>60 ml/min) 22 L BUN/Creatinine Ratio (7 - 25 %) 46.4 H TSH (0.270 - 4.200 uIU/mL) 21.900 H Free T4 (0.78 - 2.44 ng/dL) 1.24
== END 2017-07-27 11:20 | disposition home health service (06) | DRG 291 ==
LOC: ERH 16:11 → ERHI 19:41 → 1NO 19:41 → ERHI 07-23 10:04 → ENRESERV 07-23 12:57 → ENTRNSPT 07-23 15:47 → EDTRNSPT 07-23 16:00 → EDTRNSPTSTS 07-23 16:00 → 1NO 07-23 16:16 → CMPTRNSPT 07-23 16:29 → ENPENDDIS 07-27 10:07 → 1NO 07-27 11:20
PROVIDERS: Internal Medicine Infectious Disease; Physician Assistant Medical
DX: I13.0 Hypertensive heart and chronic kidney disease with heart failure and stage 1 through stage 4 chronic kidney disease, or unspecified chronic kidney disease (principal); I50.33 Acute on chronic diastolic (congestive) heart failure; N17.9 Acute kidney failure, unspecified; E11.40 Type 2 diabetes mellitus with diabetic neuropathy, unspecified; E11.22 Type 2 diabetes mellitus with diabetic chronic kidney disease; J44.9 Chronic obstructive pulmonary disease, unspecified; N18.3 Chronic kidney disease, stage 3 (moderate); I25.10 Atherosclerotic heart disease of native coronary artery without angina pectoris; Z95.5 Presence of coronary angioplasty implant and graft; I44.0 Atrioventricular block, first degree; E03.9 Hypothyroidism, unspecified; G47.33 Obstructive sleep apnea (adult) (pediatric); E78.5 Hyperlipidemia, unspecified; Z88.8 Allergy status to other drugs, medicaments and biological substances; Z91.048 Other nonmedicinal substance allergy status; Z79.82 Long term (current) use of aspirin; Z79.4 Long term (current) use of insulin; Z79.51 Long term (current) use of inhaled steroids; F41.9 Anxiety disorder, unspecified; F32.9 Major depressive disorder, single episode, unspecified; M48.00 Spinal stenosis, site unspecified; D64.9 Anemia, unspecified; R00.1 Bradycardia, unspecified
CPT/HCPCS: 1NP; ERO; 36415; 36592; 71045; 71046; 81001; 82436; 87070; 87804; 87804-59; 93005; 93010; 93306; 96372; 99291; J1644; J1940; J2930; J3490

== ENCOUNTER 2017-08-10 15:22 | Inpatient (IN) | payer OTHER ==
[~2017-08-10] VITALS: Ht 147.3 cm; Wt 84.1 kg
[~2017-08-10 15:22] MED LIST changes: +DUREZOL5 ML OD; +LEVOTHYROXINE150 MCG PO; +NORVASC10 M1 PO; +SYNTHROID125 MCG PO
--- NOTE | 2017-08-10 16:18 | ED CARDIAC/CP/PALPITATIONS ---
History of Present Illness General Chief Complaint: Dyspnea (COPD, CHF, Other) Stated Complaint: SIB DR JUDD SOB, FLUID BUILD UP Source: patient, old records Exam Limitations: no limitations Vital Signs & Intake/Output Vital Signs & Intake/Output Vital Signs Date Time Temp Pulse Resp B/P B/P Pulse O2 O2 Flow FiO2 Mean Ox Delivery Rate 08/109 98.1 73 16 160/60 97 Nasal 2.0L Cannula 08/10 2153 65 18 131/60 98 Nasal 2.0L Cannula 08/10 1952 98.3 63 20 141/63 99 Nasal 2.0L Cannula 08/10 1808 62 18 161/70 100 Nasal 2.0L Cannula 08/10 1659 Nasal 3.0L Cannula 08/10 1542 97.2 70 22 138/64 97 Nasal 2.0L Cannula Allergies Coded Allergies: povidone-iodine (From BETADINE) (RASH 04/11/17) ITCH PER ANTIBIOTIC ORDER SHEET OF 12/04/16 (SJS) soap (From BETADINE) (RASH 04/11/17) PARISH Inhibitors (Mild, COUGH 04/11/17) Triage Note: 71 YEAR OLD FEMALE SENT TO ER FROM CHF CLINIC FOR WEIGHT GAIN OF 15 LBS IN ONE WEEK, EVEN AFTER TO IV LASIX TREATMENTS. PT NOTED WITH EDEMA FROM FEET TO ABOVE HER BILATERAL KNEES, PERIORBITAL EDEMA. PT IS O2 DEPENDENT ON 2L AND SAT 95 % . DENIES COUGH. Triage Nurses Notes Reviewed? 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 Noted worsening leg edema (Rangel Davies) Reconcile Medications Albuterol Sulfate (Proair Hfa) 90 MCG HFA.AER.AD 1 PUF INH AD PRN ASTHMA ( Reported) Alpha Lipoic Acid 300 MG CAPSULE 2 CAP PO BID NEUROPATHIC PAIN (Reported) Amlodipine Besylate (Norvasc) 10 MG TABLET 1 TAB PO DAILY HTN . Aspirin (Ecotrin*) 81 MG TABLET.DR 1 TAB PO QPM HEART/BLOOD (Reported) Azilsartan Medoxomil (Edarbi) 80 MG TABLET 1 TAB PO DAILY BP (Reported) Bumetanide 1 MG TABLET 4 TAB PO BID WATER RETENTION (Reported) Carvedilol (Coreg) 25 MG TABLET 1 TAB PO BID HTN (Reported) Cholecalciferol (Vitamin D3) (Vitamin D) 1,000 UNIT TABLET 2 TAB PO DAILY VITAMIN SUPPORT (Reported) Difluprednate (Durezol) 0.05 % DROPS 1 GTT OD TID RIGHT EYE (Reported) Doxazosin Mesylate (Cardura) 2 MG TABLET 1 TAB PO BID BP (Reported) Dulaglutide (Trulicity) 0.75 MG/0.5 ML PEN.INJCTR 0.5 MG SC QMON diabetes ( Reported) Duloxetine HCl 60 MG CAPSULE.DR 1 CAP PO DAILY NERVE PAIN (Reported) Ferrous Sulfate 325 MG (65 MG IRON) TABLET.DR 1 TAB PO DAILY ANEMIA Fluticasone/Salmeterol (Advair 250-50 Diskus) 1 EACH BLST.W.DEV 1 PUF INH BID ASTHMA (Reported) Hydralazine HCl 100 MG TABLET 1 TAB PO TID BP (Reported) Insulin Aspart (Novolog) 100 UNIT/ML VIAL DM (Reported) Insulin Detemir (Levemir) 100 UNIT/ML VIAL 26 UNITS SC QPM DM Isosorbide Mononitrate (Isosorbide Mononitrate ER) 60 MG TAB.ER.24H 1 TAB PO DAILY HEART (Reported) Levothyroxine Sodium 150 MCG TABLET 1 TAB PO DAILY Hypothyroidism . [place]-3 Fatty Acids/Fish Oil (Fish Oil 1,000 MG Capsule) 340 MG-1,000 MG CAPSULE 1 CAP PO TID SUPPLEMENT (Reported) Rosuvastatin Calcium (Crestor) 20 MG TABLET 1 TAB PO QPM HYPERCHOLESTROLEMIA (Reported) (Jude Foreman DO) Past History Travel History Traveled to [place] past 21 day No Medical History Any Pertinent Medical History? 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 Psychiatric: anxiety, depression Endocrine: diabetes, HYPOTHYROID Blood Disorders: anemia Cancer(s): NONE SUPERINTENDENT REFUSE DISPOSAL/Reproductive: NONE History of MRSA: No History of VRE: No History of CDIFF: No Influenza Vaccine: 03/31/17 Surgical History Surgical History: Parathyroidectomy carpal tunnel surgery trigger finger surgery Psychosocial History Who do you live with Spouse Services at Home None What is your primary language Upper Sorbian Tobacco Use: Never used ETOH Use: denies use Illicit Drug Use: denies illicit drug use Family History Family History, If Any: MOTHER (Diabetes mellitus, from diabetic complications). SISTER (Pancreatic cancer). Hx Contributory? No (Rangel Davies) Review of Systems Review of Systems Constitutional: Reports: no symptoms. EENTM: Reports: no symptoms. Respiratory: Reports: see HPI. Cardiovascular: Reports: see HPI, peripheral edema. GI: Reports: no symptoms. Genitourinary: Reports: no symptoms. Musculoskeletal: Reports: no symptoms. Skin: Reports: no symptoms. Neurological/Psychological: Reports: no symptoms. Hematologic/Endocrine: Reports: no symptoms. Immunologic/Allergic: Reports: no symptoms. All Other Systems: Reviewed and Negative (Rangel Davies) Physical Exam Physical Exam General Appearance: no apparent distress Head: atraumatic Eyes: Bilateral: normal appearance. Ears, Nose, Throat: hearing grossly normal Neck: normal inspection Respiratory: crackles Cardiovascular: regular rate/rhythm Peripheral Pulses: 2+ dorsalis pedis (R), 2+ dorsalis pedis (L) Gastrointestinal: normal bowel sounds, soft, non-tender Extremities: +3 BILATERAL LOWER EXTREMITY PITTING EDEMA Neurologic/Psych: no motor/sensory deficits, awake Skin: intact, normal color, warm/dry Core Measures ACS in differential dx? Yes CVA/TIA Diagnosis No Sepsis Present: No Sepsis Focused Exam Completed? No (Rangel Davies) Progress Differential Diagnosis: AMI, aortic dissection, atrial fibrillation, cholecystitis, CHF/pulm edema, costochondritis, hyperkalemia, hypovolemia, hyperthyroid, hyperventilation, intracranial hemorrhage, musculoskeletal pain, myocarditis, pancreatitis, pericarditis, pneumonia, pneumothorax, PSVT, pulmonary embolism, PUD/GERD, PVCs/PACs, respiratory failure, rib fracture, sepsis, unstable angina, V-fib/V-Tach, WPW syndrome Plan of Care: Orders Procedure Date/time Status CHF Diet 08/11 B Active Vital Signs 08/10 2228 Active Teach/Educate 08/10 2228 Active Pain Treatment and Response 08/10 2228 Active Nutritional Intake, Monitor 08/10 2228 Active Isolation 08/10 2228 Active Intake & Output 08/10 2228 Active Patient Care Conference 08/10 2228 Active Activity/Ambulation 08/[address] in observation 08/11 2107 Active Pathway - chart 08/11 2047 Active House Staff 08/11 2047 Active Patient Data 08/10 2010 Active FingerStick- Glucose 08/10 2001 Active Vital Signs 08/10 192 Active Code Status 08/10 192 Active TSH REFLEX 08/10 1745 Complete TOTAL TRIODOTHYROXINE 08/10 1745 Complete TOTAL IRON BINDING CAPACITY 08/10 1745 Complete FREE T4 08/10 1745 Complete FERRITIN 08/10 1745 Complete SERUM IRON 08/10 1745 Complete VITAMIN B12 08/10 1745 Complete Intake & Output 08/10 1658 Active Tovar, Insertion/Removal/Asses 08/10 1622 Active Telemetry/Sail Repairer 08/10 1618 Active TROPONIN LEVEL 08/10 1600 Complete B-TYPE NATRIURETIC PEP (BNP) 08/10 1600 Complete COMPREHENSIVE METABOLIC PANEL 08/10 1547 Complete CBC WITHOUT DIFFERENTIAL 08/10 1547 Complete EKG 08/10 1524 Active TRC EVALUATION (GEN) 08/10 UNK Active Saline Lock 08/10 UNK Active CHF Core Measures 08/10 UNK Active Lab Add-on Test 08/10 UNK Active Weight 08/10 UNK Active VTE Mechanical Prophylaxis 08/10 UNK Active Vital Signs 08/10 UNK Complete Intake & Output 08/10 UNK Complete Hemoccult 08/10 UNK Active FingerStick- Glucose 08/10 UNK Active Activity/Ambulation 08/10 UNK Active ECHOCARDIOGRAM 08/10 UNK Active Current Medications Sig/Larissa Start time Last Medication Dose Stop Time Status Admin Atorvastatin Calcium 40 MG 1700 08/11 1700 AC (Lipitor) Amlodipine Besylate 10 MG DAILY 08/11 1000 AC (Norvasc) Cholecalciferol 1,000 IU DAILY 08/11 1000 AC (Vitamin D) Duloxetine HCl 60 MG DAILY 08/11 1000 AC (Cymbalta) Ferrous Sulfate 325 MG DAILY 08/11 1000 AC (Feosol) Fish Oil 1,050 MG DAILY 08/11 1000 AC ([place]-3) Furosemide 120 MG BID 08/11 1000 UNVr (Lasix) Isosorbide 60 MG DAILY 08/11 1000 AC Mononitrate (Imdur) Insulin Aspart 0 TIDAC 08/11 08 AC (NovoLOG) Levothyroxine Sodium 0.15 MG 0700 08/11 07 AC (Synthroid) Heparin Sodium 5,000 UNIT Q8 08/11 599 UNVr (Porcine) Albuterol Sulfate 1 PUF Q4P PRN 08/10 2199 AC (Ventolin) Aspirin Buffered 81 MG QPM 08/10 2199 AC (Ecotrin) Budesonide/ 2 PUF BID 08/10 2199 AC Formoterol Fumarate (Symbicort) Carvedilol 25 MG BID 08/10 2199 AC (Coreg) Doxazosin Mesylate 2 MG BID 08/10 2199 AC (Cardura) Hydralazine HCl 100 MG TID 08/10 2199 AC (Apresoline) Insulin Detemir 10 UNITS BID 08/10 2199 AC (Levemir) Non-Formulary 0 SEE ADMIN CRITERIA 08/10 2129 UNVr Medication (NON FORMULARY) Furosemide 60 MG ONCE ONE 08/10 1929 CAN (Lasix) 08/10 1930 Laboratory Tests 08/10/17 1745: Anion Gap 16, Estimated GFR 15 L, BUN/Creatinine Ratio 31.0 H, Glucose 129 H, Calcium 8.8, Iron 30 L, TIBC 347, Ferritin 39.8, Total Bilirubin 0.5, AST 8 L, ALT 25, Alkaline Phosphatase 62, Troponin I < 0.01, Hwv-V-Ihqfisffbfo Pept 8210 H, Total Protein 6.3, Albumin 3.7, Globulin 2.6, Albumin/Globulin Ratio 1.4, Vitamin B12 703, Free T4 1.57, Total T3 0.82 L, TSH &T3 &Free T4 Intrp 12.400 H 08/10/17 1618: Troponin I Cancelled, [id number] Pept Cancelled 08/10/17 1600: CBC w Diff NO MAN DIFF REQ, RBC 3.02 L, MCV 86.3, MCH 28.5, MCHC 33.0, RDW 13.9 , MPV 10.5 H, Gran % 64.2, Lymphocytes % 19.8 L, Monocytes % 8.7, Eosinophils % 6.3 H, Basophils % 1.0, Absolute Granulocytes 7.0 H, Absolute Lymphocytes 2.2, Absolute Monocytes 1.0 H, Absolute Eosinophils 0.7, Absolute Basophils 0.1 Patient on initial presentation was in no respiratory distress however due to history of present illness of 15 pound weight gain and shortness of breath dyspnea on exertion leg swelling increased BNP and chest x-ray findings of pleural effusion vascular congestion that there is concern of CHF. Discussed patient with who evaluated patient emergency room and advised patient to receive 120 mg of Lasix in the emergency room. Patient will be placed to [facility] for observation Diagnostic Imaging: Viewed by Me: Radiology Read. Radiology Impression: SEE COMMENTS Initial ED EKG: normal QRS complex, normal sinus rhythm, 64 BPM, FIRST DEG AV BLOCK Prior EKG: unchanged Comments: PATIENT: JOSELYN DUARTE PRESENT AGE: 71 PATIENT ACCOUNT NO: [id number] : 45 LOCATION: [facility] ORDERING PHYSICIAN: Jude Foreman DO SERVICE DATE: 08/10/17 EXAM TYPE: RAD - XRY-CHEST XRAY, TWO VIEWS EXAMINATION: XR CHEST CLINICAL INFORMATION: Shortness of breath and increased edema. COMPARISON: 07/24/2017 TECHNIQUE: 2 views of the chest were obtained. FINDINGS: The lungs are well expanded. There is central vascular prominence with diffuse bronchial wall thickening. This is increased from prior. There is no pleural effusion. No pneumothorax. The cardiomediastinal silhouette remains prominent with a calcified aorta. Spinal stimulator wiring noted. IMPRESSION: Central vascular prominence with increasing bronchial wall thickening favoring worsening edema. DICTATED BY: Chilo Mcdaniel MD DATE/TIME DICTATED:08/10/171646 MERCHANDISE PLANNER:DEEP DATE/TIME TRANSCRIBED:08/10/17 (Rangel Davies) Departure Departure Disposition: STILL A PATIENT Condition: Stable Clinical Impression Primary Impression: CHF exacerbation Referrals: Jacinta Huang MD (PCP/Family) Departure Forms: Customer Survey General Discharge Information Observation Note Spoke With: Nasir Sullivan MD Physician Advisor Notified: JUDE FOREMAN DO Place Patient In: Non-ED OBS Care Area Rationale for Observation: My rational for observation is as follows [patient has failed outpatient treatment of diuretics patient requires telemetry observation IV diuretics cardiology consultation telemetry observation repeat EKG echocardiogram]. (Rangel Davies) PA/DEPUTY ATTORNEY GENERAL Co-Sign Statement Statement: ED Attending supervision documentation- [X] I saw and evaluated the patient. I have also reviewed all the pertinent lab results and diagnostic results. I agree with the findings and the plan of care as documented in the PA's/DEPUTY ATTORNEY GENERAL's documentation. [] I have reviewed the ED Record and agree with the PA's/DEPUTY ATTORNEY GENERAL's documentation. [] Additions or exceptions (if any) to the PAs/DEPUTY ATTORNEY GENERAL's note and plan are summarized below: [] (Jude Foreman DO) Critical Care Note Critical Care Note Critical Care Time: 30-74 min (Rangel Davies)
[2017-08-10 16:50] LABS: ABSOLUTE BASOPHIL COUNT 0.1 /CUMM (0.0-0.2); ABSOLUTE EOSINOPHIL COUNT 0.7 /CUMM (0.0-0.7); ABSOLUTE LYMPH COUNT 2.2 /CUMM (1.2-3.4); EOSINOPHIL % 6.3 % (0-5); GRANULOCYTE % 64.2 % (42.2-75.2); HEMATOCRIT 26.1 % (37-47); MEAN CORPUSCULAR HGB 28.5 PG (27.0-31.0); MEAN CORPUSCULAR VOLUME 86.3 FL (81.0-99.0); MEAN PLATELET VOLUME 10.5 FL (7.4-10.4); RBC DISTRIBUTION WIDTH 13.9 % (11.5-14.5); RED BLOOD CELL CT 3.02 /CUMM (4.20-5.40)
--- NOTE | 2017-08-10 16:52 | RADIOLOGY REPORT ---
EXAMINATION: XR CHEST CLINICAL INFORMATION: Shortness of breath and increased edema. COMPARISON: 07/24/2017 TECHNIQUE: 2 views of the chest were obtained. FINDINGS: The lungs are well expanded. There is central vascular prominence with diffuse bronchial wall thickening. This is increased from prior. There is no pleural effusion. No pneumothorax. The cardiomediastinal silhouette remains prominent with a calcified aorta. Spinal stimulator wiring noted. IMPRESSION: Central vascular prominence with increasing bronchial wall thickening favoring worsening edema.
[2017-08-10 17:38] LABS: PLATELET COUNT 213 /CUMM (130-400)
[2017-08-10 17:39] LABS: WHITE BLOOD CELL COUNT 12.1 /CUMM (4.8-10.8)
--- NOTE | 2017-08-10 19:52 | Cons- Cardiology ---
General Information and HPI Consulting Request Date of Consult: 08/10/17 Requested By: Jude Haney MD Reason for Consult: CHF Source of Information: patient, family Exam Limitations: no limitations History of Present Illness: I was asked by Dr. Haney in ED to evaluate patient for CHF. 71 year old female with h/o CAD, s/p 2 LCX stents in 2013, difficult to control HTN, HFpEF, DM, CRI, anemia, COPD. Patient was hospitalized in April and May for pneumonia and flu, complicated by HFpEF. She was rehospitalized in mid July 2017 with exacerabation of diastolic congestive heart failure. She was discharged home on bumetanide 2 mg bid. She did well for a couple of weeks but over the past 10 days she has been experiencing 15 lbs weight gain, legs edema, mild dyspnea on exertion. She attended CHF clinic once a week where she received Lasix 80 mg iv. She did not respond to iv Lasix last Wednesday. I increased bumetanide to 4 mg bid yesterday but patient continued to gain weight. She was seen in CHF clinic but was sent to ER due to increased edema, weight gain and creatinine. She reports no angina, palpitations or dizziness. Recently found to have elevated TSH, Synthroid increased to 150 mg qd. 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 Allergies/Medications Allergies: Coded Allergies: povidone-iodine (From BETADINE) (RASH 04/11/17) ITCH PER ANTIBIOTIC ORDER SHEET OF 12/04/16 (SJS) soap (From BETADINE) (RASH 04/11/17) PARISH Inhibitors (Mild, COUGH 04/11/17) Home Med List: Albuterol Sulfate (Proair Hfa) 90 MCG HFA.AER.AD 1 PUF INH AD PRN ASTHMA ( Reported) Alpha Lipoic Acid 300 MG CAPSULE 2 CAP PO BID NEUROPATHIC PAIN (Reported) Amlodipine Besylate (Norvasc) 10 MG TABLET 1 TAB PO DAILY HTN . Aspirin (Ecotrin*) 81 MG TABLET.DR 1 TAB PO QPM HEART/BLOOD (Reported) Azilsartan Medoxomil (Edarbi) 80 MG TABLET 1 TAB PO DAILY BP (Reported) Bumetanide 1 MG TABLET 2 TAB PO BID WATER RETENTION (Reported) Carvedilol (Coreg) 25 MG TABLET 1 TAB PO BID HTN (Reported) Cholecalciferol (Vitamin D3) (Vitamin D) 1,000 UNIT TABLET 2 TAB PO DAILY VITAMIN SUPPORT (Reported) Difluprednate (Durezol) 0.05 % DROPS 1 GTT OD TID RIGHT EYE (Reported) Doxazosin Mesylate (Cardura) 2 MG TABLET 1 TAB PO BID BP (Reported) Duloxetine HCl 60 MG CAPSULE.DR 1 CAP PO DAILY NERVE PAIN (Reported) Ferrous Sulfate 325 MG (65 MG IRON) TABLET.DR 1 TAB PO DAILY ANEMIA Fluticasone/Salmeterol (Advair 250-50 Diskus) 1 EACH BLST.W.DEV 1 PUF INH BID ASTHMA (Reported) Hydralazine HCl 100 MG TABLET 1 TAB PO TID BP (Reported) Insulin Aspart (Novolog) 100 UNIT/ML VIAL DM (Reported) Insulin Detemir (Levemir) 100 UNIT/ML VIAL 26 UNITS SC QPM DM Isosorbide Mononitrate (Isosorbide Mononitrate ER) 60 MG TAB.ER.24H 1 TAB PO DAILY HEART (Reported) Levocetirizine Dihydrochloride 5 MG TABLET 1 TAB PO QPM ALLERGIES (Reported) Levothyroxine Sodium 150 MCG TABLET 1 TAB PO DAILY Hypothyroidism . [place]-3 Fatty Acids/Fish Oil (Fish Oil 1,000 MG Capsule) 340 MG-1,000 MG CAPSULE 1 CAP PO TID SUPPLEMENT (Reported) Rosuvastatin Calcium (Crestor) 20 MG TABLET 1 TAB PO QPM HYPERCHOLESTROLEMIA (Reported) Current Medications: Current Medications Sig/Larissa Start time Last Medication Dose Route Stop Time Status Admin Furosemide 120 MG ONCE ONE 08/10 1944 AC 08/10 IV 08/10 Furosemide 0 .STK-MED ONE 08/10 1941 DC IV Furosemide 0 .STK-MED ONE 08/10 1936 DC IV Furosemide 60 MG ONCE ONE 08/10 1929 CAN IV 08/10 1930 Insulin Aspart 4 UNITS ONCE ONE 08/10 1929 DC 08/10 SC 08/10 Review of Systems Review of Systems Constitutional: Reports: weakness. Denies: no symptoms, see HPI, chills, diaphoresis, fever, malaise, unexplained weight loss. EENTM: Denies: no symptoms, see HPI, blurred vision, double vision, visual changes, eye pain, eye drainage, eye tearing, icterus, ear discharge, ear pain, ear redness, hearing changes, nasal congestion, epistaxis, nasal pain, throat pain, throat swelling, mouth pain, tooth pain. Cardiovascular: Reports: edema, orthopena. Denies: no symptoms, see HPI, chest pain, palpitations, peripheral edema, syncope. Respiratory: Reports: short of breath. Denies: no symptoms, see HPI, cough, hemoptysis, orthopnea, sputum production, stridor, wheezing. GI: Denies: no symptoms, see HPI, abdominal pain, bloating, constipation, diarrhea, distention, bowel incontinence, melena, nausea, bloody stool, changes in stool, vomiting, steatorrhea. Genitourinary: Denies: no symptoms, see HPI, discharge, dysuria, frequency, hematuria, hesitation, nocturia, pain, urgency. Musculoskeletal: Reports: back pain. Denies: no symptoms, see HPI, gout, joint pain, joint swelling, muscle pain, muscle stiffness, neck pain. Skin: Denies: no symptoms, see HPI, cysts, change in skin color, change in hair/nails, dryness, erythema, jaundice, lesions, lymphangitis, lumps, moles, rash. Neurological/Psychological: Denies: no symptoms, see HPI, anxiety, ataxia, cognitive dysfunction, confusion, depressed, dementia, emotional problems, headache, numbness, paresthesia, pre- existing deficit, petit mal seizures, tingling, tremors, tonic-clonic seizures, unable to move lower ext, unable to move upper ext, weakness, other. Hematologic/Endocrine: Denies: no symptoms, see HPI, bruising, bleeding, polyuria, polydipsia, other. Immunologic/Allergic: Denies: no symptoms, see HPI, splenectomy, HIV/AIDS, lymphadenopathy, other. 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 SISTER (Pancreatic cancer). Psychosocial History Who Do You Live With? spouse Services at Home: None Primary Language: Taiwanese ETOH Use: denies use Illicit Drug Use: denies illicit drug use Functional Ability ADLs Independent: dressing, eating, toileting, bathing. Ambulation: cane, Patient used a cane when outside the house but ambulates independently indoors. IADLs Independent: finances, food prep, telephone, medication admin. Needs Assist: shopping, housework, transportation. Exam & Diagnostic Data Vital Signs and I&O Vital Signs Date Time Temp Pulse Resp B/P B/P Pulse O2 O2 Flow FiO2 Mean Ox Delivery Rate 08/10 1808 62 18 161/70 100 Nasal 2.0L Cannula 08/10 1659 Nasal 3.0L Cannula 08/10 1542 97.2 70 22 138/64 97 Nasal 2.0L Cannula Intake & Output 08/10 1600 08/10 0800 08/10 0000 08/09 1600 08/09 0800 08/09 0000 Intake Total Output Total Balance Patient 191 lb Weight Physical Exam: Mild respiratory distress Skin-no rash HEENT-PERRLA, moist oral mucosa Neck-JVP elevated, no carotid bruits Lungs-few bibasilar crackles Heart-S1S2 regular, 1/6SEM at the base Abdomen-soft,not tender, BS+, no organomegaly, no masses Extr-1+ edema, 2+ pulses Neuro-non focal, AAOx3 Vascular-good distal pulses, no carotid bruits Labs/Jose Alejandro Results: Laboratory Tests 08/10 08/10 08/10 1745 1618 1600 Chemistry Sodium (137 - 145 mmol/L) 134 L Potassium (3.5 - 5.1 mmol/L) 4.2 Chloride (98 - 107 mmol/L) 97 L Carbon Dioxide (22 - 30 mmol/L) 21 L Anion Gap (5 - 16) 16 BUN (7 - 17 mg/dL) 96 H Creatinine (0.5 - 1.0 mg/dL) 3.1 H Estimated GFR (>60 ml/min) 15 L BUN/Creatinine Ratio (7 - 25 %) 31.0 H Glucose (65 - 99 mg/dL) 129 H Calcium (8.4 - 10.2 mg/dL) 8.8 Total Bilirubin (0.2 - 1.3 mg/dL) 0.5 AST (14 - 36 U/L) 8 L ALT (9 - 52 U/L) 25 Alkaline Phosphatase (<127 U/L) 62 Troponin I (< 0.11 ng/ml) < 0.01 Cancelled Sab-B-Eohujsptnro Pept (<125 pg/mL) 8210 H Cancelled Total Protein (6.3 - 8.2 g/dL) 6.3 Albumin (3.5 - 5.0 g/dL) 3.7 Globulin (1.9 - 4.2 gm/dL) 2.6 Albumin/Globulin Ratio (1.1 - 2.2 %) 1.4 Hematology CBC w Diff NO MAN DIFF REQ WBC (4.8 - 10.8 /CUMM) 12.1 H RBC (4.20 - 5.40 /CUMM) 3.02 L Hgb (12.0 - 16.0 G/DL) 8.6 L Hct (37 - 47 %) 26.1 L MCV (81.0 - 99.0 FL) 86.3 MCH (27.0 - 31.0 PG) 28.5 MCHC (33.0 - 37.0 G/DL) 33.0 RDW (11.5 - 14.5 %) 13.9 Plt Count (130 - 400 /CUMM) 213 MPV (7.4 - 10.4 FL) 10.5 H Gran % (42.2 - 75.2 %) 64.2 Lymphocytes % (20.5 - 51.1 %) 19.8 L Monocytes % (1.7 - 9.3 %) 8.7 Eosinophils % (0 - 5 %) 6.3 H Basophils % (0.0 - 2.0 %) 1.0 Absolute Granulocytes (1.4 - 6.5 /CUMM) 7.0 H Absolute Lymphocytes (1.2 - 3.4 /CUMM) 2.2 Absolute Monocytes (0.10 - 0.60 /CUMM) 1.0 H Absolute Eosinophils (0.0 - 0.7 /CUMM) 0.7 Absolute Basophils (0.0 - 0.2 /CUMM) 0.1 Diagnostic Data EKG Results SR, RAD, no acute ST abnormalities CXR Results CHF Assessment/Plan Assessment/Plan 71 year old female with h/o CAD, s/p 2 LCX stents in 2013, difficult to control HTN, HFpEF, DM, CRI, anemia, COPD presents with another episode of HFpEF. Last hospitalization was 3 weeks ago. Etiology likely due to difficult to control hypertension. Echo last hospitalization showed nl EF, moderate diastolic dysfunction. Now with evidence of ARF on CRI secondary to heart failure and underlying diabetic nephrophathy. Ekg negative, tropoinin negative. She (and her ) watch sodium at home closely. TSH (hypothyroidism may contribute to fluid retention) improving on higher dose of Synthroid. BP still elevated. Plan: Admit to hospitalist to telemetry Tovar catheter continue pre-admission antihypertensive therapy Start iv Lasix 120 mg bid negative fluid balance if not adequate diuretic response overnight, add metolazone 5 mg po 30 min before am dose of Lasix Renal consult We may try outpatient (off label) Entresto (studied only in patients with reduced EF, studies for HFpEF ongoing) which has natriuretic effect (sacubitril) in addition to BP lowering Consult Acknowledgment - Thank you for your consult request.
--- NOTE | 2017-08-10 20:12 | History & Physical ---
See Addendum Juan GUTIERREZ,[facility] 08/10/172010: General Information and [facility] MD Statement: I have seen and personally examined JOSELYN WEBER and documented this H&P. The patient is a 71 year old F who presented with a patient stated chief complaint of [SOB]. Source of Information: patient, family Exam Limitations: no limitations History of Present Illness: 71 yo F past medical history of coronary artery disease status post stents 2 in 2013, spinal stenosis, hypertension, asthma, CHF with preserved EF, CKD, diabetes, hypothyroidism recently discharged on July 27 for acute exacerbation of CHF presenting for 15 pound weight gain found in CHF clinic. The patient's family states that the patient has been on a decline since April and has been getting a worse baseline with each admission. She has had 4 admissions since April. The patient states that she is on 1.5 L at baseline and has been using 2.0 L of oxygen today the patient states that she goes to the CHF clinic twice weekly. She states that she was started on oxygen April. And since a few days ago she has been using 1.5 L continuously. States that within the past few days she's been able to take off her oxygen for periods of 2-4 hours. She states that she has increased shortness of breath when she is on oxygen. She states that she is not very active at home and states that she has been compliant with her medications. She states that she has had increased leg swelling, fatigue, increased sleep, headache, diffuse arm and leg aching, and decrease urination the past few days. The patient states that she has a chronic cough that is ongoing. Of note the patient has had her levothyroxine switched to name brand Synthroid increased to 150 g daily. The patient was also started on to list to the yesterday 0.5 mg weekly. The patient denies any fevers, chills, night sweats, changes in appetite, chest pain, palpitations, abdominal pain, sick contacts, sore throat, or congestion. Allergies/Medications Allergies: Coded Allergies: povidone-iodine (From BETADINE) (RASH 04/11/17) ITCH PER ANTIBIOTIC ORDER SHEET OF 12/04/16 (SJS) soap (From BETADINE) (RASH 04/11/17) PARISH Inhibitors (Mild, COUGH 04/11/17) Past History Travel History Traveled to [place] past 21 day No Medical History Neurological: vertigo EENT: SLEEP APNEA Cardiovascular: CHF, hypertension Respiratory: asthma, pneumonia, SLEEP APNEA NOCTURNAL CPAP Gastrointestinal: NONE Hepatic: NONE Renal: CKD 3 Musculoskeletal: SPINAL STENOSIS PAIN STIMULATOR Psychiatric: anxiety, depression Endocrine: diabetes, HYPOTHYROID Blood Disorders: anemia Cancer(s): NONE CRANIOLOGIST/Reproductive: NONE History of MRSA: No History of VRE: No History of CDIFF: No Influenza Vaccine: 03/31/17 Surgical History Surgical History: Parathyroidectomy carpal tunnel surgery trigger finger surgery Past Family/Social History Family History Relations & Conditions if any MOTHER (Diabetes mellitus, from diabetic complications). SISTER (Pancreatic cancer). Psychosocial History Who Do You Live With? spouse Services at Home: None Primary Language: [place] ETOH Use: denies use Illicit Drug Use: denies illicit drug use Functional Ability ADLs Independent: dressing, eating, toileting, bathing. Ambulation: cane, Patient used a cane when outside the house but ambulates independently indoors. IADLs Independent: finances, food prep, telephone, medication admin. Needs Assist: shopping, housework, transportation. Review of Systems Review of Systems Constitutional: Reports: see HPI. Respiratory: Reports: short of breath. Genitourinary: Reports: see HPI (decrease urination). Musculoskeletal: Reports: see HPI (LE edema, diffuse aches). Neurological/Psychological: Reports: headache. Exam & Diagnostic Data Last 24 Hrs of Vital Signs/I&O Vital Signs Date Time Temp Pulse Resp B/P B/P Pulse O2 O2 Flow FiO2 Mean Ox Delivery Rate 08/11 0106 67 97 08/11 0026 68 160/60 08/11 0026 68 160/60 08/11 0000 Nasal 2.0L Cannula 08/10 2250 68 98 08/10 2229 98.1 73 16 160/60 97 Nasal 2.0L Cannula 08/10 2153 65 18 131/60 98 Nasal 2.0L Cannula 08/10 1952 98.3 63 20 141/63 99 Nasal 2.0L Cannula 08/10 1808 62 18 161/70 100 Nasal 2.0L Cannula 08/10 1659 Nasal 3.0L Cannula 08/10 1542 97.2 70 22 138/64 97 Nasal 2.0L Cannula Intake & Output 08/11 0800 08/11 0000 08/10 1600 Intake Total 0 Output Total 200 Balance -200 Intake, Oral 0 Output, Urine 200 Patient 185 lb 191 lb Weight Weight Bed scale Measurement Method Physical Exam General Appearance Alert, Oriented X3, Cooperative HEENT b/l base neck edema Cardiovascular Regular Rate, Normal S1, Normal S2 Lungs basilar crackles Abdomen Normal Bowel Sounds, Soft, No Tenderness Extremities 2+ edema to mid thigh Vascular 2+ radial pulses Last 24 Hrs of Labs/Jose Alejandro: Laboratory Tests 08/11/17 0203: Troponin I < 0.01 08/10/17 1745: Anion Gap 16, Estimated GFR 15 L, BUN/Creatinine Ratio 31.0 H, Glucose 129 H, Calcium 8.8, Iron 30 L, TIBC 347, Ferritin 39.8, Total Bilirubin 0.5, AST 8 L, ALT 25, Alkaline Phosphatase 62, Troponin I < 0.01, Fga-N-Loejgmeyjbo Pept 8210 H, Total Protein 6.3, Albumin 3.7, Globulin 2.6, Albumin/Globulin Ratio 1.4, Vitamin B12 703, Free T4 1.57, Total T3 0.82 L, TSH &T3 &Free T4 Intrp 12.400 H 08/10/17 1618: Troponin I Cancelled, Rws-B-Sdfdrbqetdi Pept Cancelled 08/10/17 1600: CBC w Diff NO MAN DIFF REQ, RBC 3.02 L, MCV 86.3, MCH 28.5, MCHC 33.0, RDW 13.9 , MPV 10.5 H, Gran % 64.2, Lymphocytes % 19.8 L, Monocytes % 8.7, Eosinophils % 6.3 H, Basophils % 1.0, Absolute Granulocytes 7.0 H, Absolute Lymphocytes 2.2, Absolute Monocytes 1.0 H, Absolute Eosinophils 0.7, Absolute Basophils 0.1 Diagnostic Data EKG Results SR, RAD, no acute ST abnormalities CXR Results CHF Assessment/Plan Assessment: A: 71 yo F past medical history of coronary artery disease status post stents 2 in 2013, spinal stenosis, hypertension, asthma, CHF with preserved EF, CKD, diabetes, hypothyroidism recently discharged on July 27 for acute exacerbation of CHF presenting for 15 pound weight gain found in CHF clinic 07/09 to CHF exascerbation. P: #Acute on chronic CHF exacerbation Last echo 2017 with LVEF > 60% and stage 2 diastolic dysfunction BNP 8210 CXR: Central vascular prominence with increasing bronchial wall thickening favoring worsening edema. -cont iv lasix -monitor I/O -PT eval for discharge -cards consult #Rising Cr Cr 3.1 (baseline 2.5) -nephro consult with Dr. Mitchell #chronic anemia H/H8.6/26.1 -At baseline continue to monitor -Continue iron #Leukocytosis WBC 12.1 Pt afebrile #Hx of hypothyroidism -Continue Synthroid 150 g #diabetes -cont novolog sliding scale -cont levemir 10 units #hx of cad -Continue atorvastatin, isosorbide mononitrate, fish oil, cont doxazosin, aspirin, carvedilol #hx of COPD -cont symbicort and albuterol #hx of htn -cont amlodipine, hydralazine #Mental health #Vitamin supplementation #DVT prophylaxis with subcutaneous heparin #FULL CODE As Ranked By This Provider Problem List: 1. CHF (congestive heart failure) Core Measures/Misc (02/21) Acute Coronary Syndrome ACS Diagnosis: No Congestive Heart Failure Congestive Heart Failure Diagnosis Yes Cerebrovascular Accident CVA/TIA Diagnosis: No VTE (View Protocol) VTE Risk Factors Acute Medical Illness No Mechanical VTE Prophylaxis d/t Other No VTE Pharm Prophylaxis d/t NA PharmProphylax ordered Sepsis (View protocol) Sepsis Present: No Rolando Strange 08/10/17 7139: General Information and HPI Allergies/Medications Home Med list Albuterol Sulfate (Proair Hfa) 90 MCG HFA.AER.AD 1 PUF INH AD PRN ASTHMA ( Reported) Alpha Lipoic Acid 300 MG CAPSULE 2 CAP PO BID NEUROPATHIC PAIN (Reported) Amlodipine Besylate (Norvasc) 10 MG TABLET 1 TAB PO DAILY HTN . Aspirin (Ecotrin*) 81 MG TABLET.DR 1 TAB PO QPM HEART/BLOOD (Reported) Azilsartan Medoxomil (Edarbi) 80 MG TABLET 1 TAB PO DAILY BP (Reported) Bumetanide 1 MG TABLET 4 TAB PO BID WATER RETENTION (Reported) Carvedilol (Coreg) 25 MG TABLET 1 TAB PO BID HTN (Reported) Cholecalciferol (Vitamin D3) (Vitamin D) 1,000 UNIT TABLET 2 TAB PO DAILY VITAMIN SUPPORT (Reported) Difluprednate (Durezol) 0.05 % DROPS 1 GTT OD TID RIGHT EYE (Reported) Doxazosin Mesylate (Cardura) 2 MG TABLET 1 TAB PO BID BP (Reported) Dulaglutide (Trulicity) 0.75 MG/0.5 ML PEN.INJCTR 0.5 MG SC QMON diabetes ( Reported) Duloxetine HCl 60 MG CAPSULE.DR 1 CAP PO DAILY NERVE PAIN (Reported) Ferrous Sulfate 325 MG (65 MG IRON) TABLET.DR 1 TAB PO DAILY ANEMIA Fluticasone/Salmeterol (Advair 250-50 Diskus) 1 EACH BLST.W.DEV 1 PUF INH BID ASTHMA (Reported) Hydralazine HCl 100 MG TABLET 1 TAB PO TID BP (Reported) Insulin Aspart (Novolog) 100 UNIT/ML VIAL DM (Reported) Insulin Detemir (Levemir) 100 UNIT/ML VIAL 26 UNITS SC QPM DM Isosorbide Mononitrate (Isosorbide Mononitrate ER) 60 MG TAB.ER.24H 1 TAB PO DAILY HEART (Reported) Levothyroxine Sodium 150 MCG TABLET 1 TAB PO DAILY Hypothyroidism . [place]-3 Fatty Acids/Fish Oil (Fish Oil 1,000 MG Capsule) 340 MG-1,000 MG CAPSULE 1 CAP PO TID SUPPLEMENT (Reported) Rosuvastatin Calcium (Crestor) 20 MG TABLET 1 TAB PO QPM HYPERCHOLESTROLEMIA (Reported) Resident Review Statement Resident Statement: examined this patient, discussed with compensation intern, agreed with compensation intern, amended to note Other Findings: Ms Weber is a 71-year-old woman with past medical history of coronary artery disease status post 2 LCx stents done in 2013, hypothyroidism, CHF hypertension, diabetes, chronic renal insufficiency, anemia, COPD, depression, multiple admissions to [facility] for management of acute exacerbation of CHF. She came in to [facility] with a chief concern of worsening dyspnea, increasing weight gain and pedal edema. She was known to be in her usual state of health until a few months ago, when she started having increased exacerbations of heart failure. Stated that she has been compliant with taking her medications, and follows up with CHF clinic every week. She was notified that she has gained approximately 15 pounds in the last 1 week, and also had worsening pedal edema. She uses oxygen 2 L oxygen at night, which was started a few months ago. Reported increased use of oxygen in the last few days. Also reported decreased urination , but did not have any symptoms of dysuria. No new symptoms of exertional dyspnea. No fever, sore throat, abdominal pain. No chest pain, palpitations. There was a recent change in her medications notably increasing the dose of Bumex from 2 mg to 4 mg, increasing Synthroid dose to 150 g g by mouth daily, and addition of trulicity. She follows up with Dr. Jackman, collaborative physician, Dr. crawford-moth exterminator. No change in dietary intake of sodium, which this is very minimal. At the time of vvthwyxey-aomgwf-ygxyxocfvj 98.3, pulse rate 63, respiration 20, blood pressure 141/63, 95% on 2 L. On examination-she was comfortable, General Exam: AAOx3, No acute distress, Skin: No rashes, no breakdown HEENT: PERRLA, EOMI Neck: Supple, No JVD No cervical lymphadenopathy CVS: Reg Rate, Normal S1,S2, systolic murmur. Resp: Normal air entry, no ronchi/rales Abdomen: Soft, No tenderness, Normal Bowel Sounds Neuro: Normal Speech, Strength 5/5 b/l x 4 extremities, Sensation intact, CN III -XII NL, Reflexes 2+ Extremities: No cyanosis, 3+ pedal edema extending up to her knee. Pertinent lab findings-WC 12.1, hemoglobin 8.6 (chronic anemia), hematocrit 26.1 , platelets 213 Sodium 134, potassium 4.2, chloride 97, bicarbonate 21 (mild acidosis) cyst, BUN 96, serum creatinine 3.1 (baseline 2.0) indicating HPI on C daily. Chest x-ray reveals regular findings suggestive of fluid overload. Echocardiogram Problem list: #1 congestive heart failure #2 diabetes #3 hypothyroidism #4 hyperlipidemia #5 depression #6 acute kidney injury on chronic renal insufficiency. Etiology of frequent acute exacerbations of congestive heart failure but more likely due to either diet or need for adequate medication adjustment. She also has hypothyroidism which could be contributing to fluid overload. In the setting of chronic renal insufficiency, treatment of acute heart failure becomes very challenging. Plan: 1. Congestive heart failure- -24 obs on telemetry -Serial cardiac grams and cardiac enzymes -Daily weights -Strict ins and outs -Bumex would be on hold for now, instead treat with furosemide 120 mg IV twice a day as per the recommendation of collaborative physician. -Add metolazone in the a.m., if there is inadequate urine output. -CHF diet 2. Diabetes- -Accu-Cheks 3 times a day before meals -Insulin sliding scale medium dose -Last A1c was known to be around 6. 3. Hypothyroidism -Continue Synthroid at 150 g daily dose. 4. Anemia- -Check Hemoccult, iron studies. 5. Acute on chronic renal insufficiency -Strict ins and outs -Monitor serum creatinine while on diuretics. -Nephrology consult in the a.m. Housekeepin. DVT prophylaxis-subcutaneous heparin. 2. Lens-peripheral 3. Code-full code 4. Diet CHF diet 5. Medication reconciliation-done. 6. Consults-nephrology, collaborative physician. Nate GUTIERREZ, [facility] 08/11/17 0540: Attending MD Review Statement Attending Statement Attending MD Statement: examined this patient, discuss w/resident/PA/ONLINE RETAILER, agreed w/resident/PA/ONLINE RETAILER, discussed with family, reviewed images, amended to note Attending Assessment/Plan: 71 yo F with h/o CAD s/p stents, HTN, DM, HfpEF, CKD stage 4, COPD, most recently admitted for CHF (Jul 2017), is brought in for evaluation of dyspnea, weight gain of 15 lbs in 1 week and LE edema. She reports using oxygen at home, and had to increase it from 2 to 3 L. Patient also has had decreased urination despite taking bumex. She called Dr. Mtz 1 day prior and he increased the bumex to 4 mg BID. Patient also goes to the CHF clinic once a week where she gets IV lasix. Despite this she continued to have symptoms and presents to the ER. Denies chest pain or palpitations. Also, her levothyroxine dose was increased recently due to elevated TSH despite treatment. Vitals stable, except sats 97% on 3L. Exam: JVD not appreciated due to body habitus, Chest bibasilar crackles+, LE: 3+ edema. Labs: WBC 12.1, H/H 8.6/26.1 (baseline), Na 134, bicarb 21, BUN 96, creat 3.1 ( baseline 1.6 2.0), glucose 129, trop neg, proBNP 8210. CXR: central vascular prominence with increasing bronchial wall thickening favoring worsening edema. EKG: sinus rhythm, first degree AV block, RAD, no acute changes. Echo (2018): EF > 60%, stage 2 diastolic dysfunction. Assessment and plan: 1. Acute on chronic hypoxic respiratory failure 2. Acute on chronic exacerbation of diastolic heart failure 3. 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 Hypothyroidism 5. History of CAD and HTN 6. Anemia of chronic disease - 23 hour observation on Telemetry - Monitor for arrhythmias - Daily weights, strict I/O's - Tovar placed - IV lasix 120 BID as per Cardio recs - Hold bumex - Cardio consult (Dr. Mtz) seen patient in ER - Serial EKG and troponin - No need to repeat Echo - Monitor renal functions on diuretics - Nephro consult - Check UA, urine lytes - Resume home meds amlodipine, insulin, hydralazine, crestor, coreg, imdur, edarbi (patient's own med). - TSH was checked on August 09 - .7 (trending down), would continue current dose of levothyroxine - PT eval - Diabetes management DVT ppx Hep SC. Full code. Observation Initial Note - I have personally examined JOSELYN WEBER on 08/11/17 at 0644. The disposition of JOSELYN WEBER is uncertain at this time and before a determination can be made, she requires a period of observation for the following reasons [CHF exacerbation needs IV diuresis]
[2017-08-10] MEDS ORDERED: TRULICITY0.75 MG/01 SC (20:57)
[2017-08-10 22:29] VITALS: BP 160/60
[2017-08-11 07:18] VITALS: BP 158/68
--- NOTE | 2017-08-11 08:47 | PN- Housestaff ---
Jean Mc 08/11/17 0832: Subjective Follow-up For: Acute on chronic CHF. Subjective: 71-year-old woman with history of coronary artery disease status post 2 left circumflex stents in 2013, resistant hypertension, heart failure with preserved ejection fraction, diabetes with recent hospitalizations for heart failure. This morning patient seen and examined, sleeping comfortably in bed, no shortness of breath. On BiPAP. Offers no complaints, no breathing difficulty. No pain in lower abdomen, or flank. No fevers or chills. She reports less than usual urination, especially on high-dose of Lasix. No history of nephrolithiasis. No reported urinary frequency, or burning. Output--500 this morning. Reported recent weight gain 15 pounds in 1 week. Review of Systems Constitutional: Reports: see HPI. Objective Last 24 Hrs of Vital Signs/I&O Vital Signs Date Time Temp Pulse Resp B/P B/P Pulse O2 O2 Flow FiO2 Mean Ox Delivery Rate 08/11 717 98.0 79 18 158/68 98 CPAP 08/11 0106 67 97 08/11 0026 68 160/60 08/11 0026 68 160/60 08/11 0000 Nasal 2.0L Cannula 08/10 2250 68 98 08/10 2229 98.1 73 16 160/60 97 Nasal 2.0L Cannula 08/10 2153 65 18 131/60 98 Nasal 2.0L Cannula 08/10 1952 98.3 63 20 141/63 99 Nasal 2.0L Cannula 08/10 1808 62 18 161/70 100 Nasal 2.0L Cannula 08/10 1659 Nasal 3.0L Cannula 08/10 1542 97.2 70 22 138/64 97 Nasal 2.0L Cannula Intake & Output 08/11 1600 08/11 0800 08/11 0000 Intake Total 250 0 Output Total 750 200 Balance -500 -200 Intake, Oral 250 0 Output, Urine 750 200 Patient 185 lb Weight Weight Bed scale Measurement Method Physical Exam General Appearance: Alert, Oriented X3, Cooperative Neck: Supple, No JVD Cardiovascular: Regular Rate, Normal S1, Normal S2 Lungs: Clear to Auscultation, Normal Air Movement Abdomen: Normal Bowel Sounds, Soft Extremities: No Clubbing, No Cyanosis, 2+ pitting edema bilaterally. Current Medications: Current Medications Sig/Larissa Start time Last Medication Dose Route Stop Time Status Admin Albuterol Sulfate 1 PUF Q4P PRN 08/10 2200 AC INH Amlodipine Besylate 10 MG DAILY 08/11 1000 AC PO Aspirin Buffered 81 MG QPM 08/10 2200 AC 08/11 PO 0026 Atorvastatin Calcium 40 MG 1700 08/11 1700 AC PO Budesonide/ 2 PUF BID 08/10 2200 AC 08/11 Formoterol Fumarate INH 0026 Carvedilol 25 MG BID 08/10 2200 AC 08/11 PO 0026 Cholecalciferol 1,000 IU DAILY 08/11 1000 AC PO Doxazosin Mesylate 2 MG BID 08/10 2200 AC 08/11 PO 0026 Duloxetine HCl 60 MG DAILY 08/11 1000 AC PO Ferrous Sulfate 325 MG DAILY 08/11 1000 AC PO Fish Oil 1,050 MG DAILY 08/11 1000 AC PO Furosemide 120 MG BID 08/11 1000 AC IV Furosemide 120 MG ONCE ONE 08/10 1944 DC 08/10 IV 08/10 1945 193 Furosemide 0 .STK-MED ONE 08/10 1941 DC IV Furosemide 0 .STK-MED ONE 08/10 1936 DC IV Furosemide 60 MG ONCE ONE 08/10 1929 CAN IV 08/10 1930 Heparin Sodium 5,000 UNIT Q8 08/11 06 AC 08/11 (Porcine) SC 0645 Hydralazine HCl 100 MG TID 08/10 2199 AC 08/11 PO 0026 Insulin Aspart 0 TIDAC 08/11 0800 AC SC Insulin Aspart 4 UNITS ONCE ONE 08/10 193 DC 08/10 SC 08/10 193 193 Insulin Detemir 10 UNITS BID 08/10 220 AC 08/11 SC 0027 Isosorbide 60 MG DAILY 08/11 1000 AC Mononitrate PO Levothyroxine Sodium 0.15 MG 0708/11 0700 AC PO Non-Formulary 0 SEE ADMIN CRITERIA 08/10 2129 UNV Medication ANY Last 24 Hrs of Lab/Jose Alejandro Results Last 24 Hrs of Labs/Mics: Laboratory Tests 08/11/17 0705: Troponin I Pending 08/11/17 0203: Troponin I < 0.01 08/10/17 1745: Anion Gap 16, Estimated GFR 15 L, BUN/Creatinine Ratio 31.0 H, Glucose 129 H, Calcium 8.8, Iron 30 L, TIBC 347, Ferritin 39.8, Total Bilirubin 0.5, AST 8 L, ALT 25, Alkaline Phosphatase 62, Troponin I < 0.01, Ewy-J-Hcmybaghkbh Pept 8210 H, Total Protein 6.3, Albumin 3.7, Globulin 2.6, Albumin/Globulin Ratio 1.4, Vitamin B12 703, Free T4 1.57, Total T3 0.82 L, TSH &T3 &Free T4 Intrp 12.400 H 08/10/17 1618: Troponin I Cancelled, Uxo-K-Xwjoloiccij Pept Cancelled 08/10/17 1600: CBC w Diff NO MAN DIFF REQ, RBC 3.02 L, MCV 86.3, MCH 28.5, MCHC 33.0, RDW 13.9 , MPV 10.5 H, Gran % 64.2, Lymphocytes % 19.8 L, Monocytes % 8.7, Eosinophils % 6.3 H, Basophils % 1.0, Absolute Granulocytes 7.0 H, Absolute Lymphocytes 2.2, Absolute Monocytes 1.0 H, Absolute Eosinophils 0.7, Absolute Basophils 0.1 Assessment/Plan Assessment: 71-year-old woman with extensive cardiac history with frequent recent CHF exacerbations, recent nonrespondence weekly Lasix infusion, increase Bumex dose, with subsequent 15 pound weight gain in last 1 week, warranting telemetry admission for CHF exacerbation. 1. Acute on chronic CHF exacerbation. ACS ruled out. Last echo in July 2017, with left ventricular hypertrophy and diastolic dysfunction. -500 overnight. On high-dose Lasix, 100 mg twice a day. Daily weights. Monitor BUN /creatinine. 2. Acute kidney injury, history of CKD. We will add on BEP to morning troponin. 15 pound weight gain, in and out imbalance, decreased urinary output despite high-dose Lasix. Will rule out obstruction with a renal ultrasound. Nephrology consult placed by night team. 3. Diabetes. Sugars well controlled on Levemir 10 mg twice a day and insulin sliding scale. Continue to monitor. 4. Hypertension. Continue amlodipine, Imdur, hydralazine, Coreg and Cardura. 5. History of CAD. Continue aspirin and statin. Continue other meds. Full code. CHF diet. Heparin for DVT prophylaxis. Problem List: 1. CHF (congestive heart failure) Pain Ratin Pain Location: None Pain Goal: Remain pain free Pain Plan: PRN Tomorrow's Labs & Rationales: CHF Rima GUTIERREZ,Malissa 08/11/17 1541: Attending MD Review Statement Attending Statement Attending MD Statement: examined this patient, discuss w/resident/PA/PUBLIC POLICY ASSOCIATE, agreed w/resident/PA/PUBLIC POLICY ASSOCIATE, reviewed EMR data (avail), discussed with nursing, discussed with case mgmt, amended to note Attending Assessment/Plan: Patient seen and examined. Resting comfortably and not in any acute distress. No events on telemetry monitoring. She is lethargic. Denies chest pain or shortness of breath at rest. Input output noted. Weights noted. On examination she is not in any respiratory distress. She is stable on oxygen supplementation. She has diminished breath sounds in lung bases bilaterally. Abdomen soft and nontender. She has bilateral pedal edema. Renal sonogram shows small atrophic right kidney. No renal calculi or hydronephrosis. She has a collapsed urinary bladder. Hemoglobin level is not far off from her baseline. Serum creatinine is elevated from baseline. TSH is elevated however it is improvement compared to July after a dose change in her Synthroid. Recommendations: -Nephrology follow-up appreciated. I agree that if she has no significant weight loss and urine output metolazone should be added to her regimen. -Monitor blood pressure closely. BP was elevated this morning but this afternoon is in the low 100s. -Repeat serum chemistry in a.m. -Repeat CBCs in a.m. to reevaluate her leukocytosis. -Mobilize patient as tolerated.
--- NOTE | 2017-08-11 10:12 | PN- Cardiology ---
Subjective Subjective: Breathing slightly improved, felt slightly dizzy when walking with PT. Objective Vital Signs and I&Os Vital Signs Date Time Temp Pulse Resp B/P B/P Pulse O2 O2 Flow FiO2 Mean Ox Delivery Rate 08/11 717 98.0 79 18 158/68 98 CPAP 08/11 0106 67 97 08/11 0026 68 160/60 08/11 0026 68 160/60 08/11 0000 Nasal 2.0L Cannula 08/10 2250 68 98 08/10 2229 98.1 73 16 160/60 97 Nasal 2.0L Cannula 08/10 2153 65 18 131/60 98 Nasal 2.0L Cannula 08/10 1952 98.3 63 20 141/63 99 Nasal 2.0L Cannula 08/10 1808 62 18 161/70 100 Nasal 2.0L Cannula 08/10 1659 Nasal 3.0L Cannula 08/10 1542 97.2 70 22 138/64 97 Nasal 2.0L Cannula Intake & Output 08/11 1600 08/11 0800 08/11 0000 08/10 1600 08/10 0800 08/10 0000 Intake Total 250 0 Output Total 750 200 Balance -500 -200 Intake, Oral 250 0 Output, Urine 750 200 Patient 185 lb 191 lb Weight Weight Bed scale Measurement Method Physical Exam: HEENT-PERRLA Neck-JVP normal Lungs-improved crackles [id number] regular, 1/6 BARRON at the base Abdomen-soft, not tender, BS+, no organomegaly Extr-1+ edema, 2+ pulses\ Neuro-non focal, oriented to time, place, person vasc-2+ distal pulses Current Medications: Current Medications Sig/Larissa Start time Last Medication Dose Route Stop Time Status Admin Albuterol Sulfate 1 PUF Q4P PRN 08/10 2199 AC INH Amlodipine Besylate 10 MG DAILY 08/11 1000 AC PO Aspirin Buffered 81 MG QPM 08/10 2199 AC 08/11 PO 0026 Atorvastatin Calcium 40 MG 1700 08/11 1700 AC PO Budesonide/ 2 PUF BID 08/10 2199 AC 08/11 Formoterol Fumarate INH 0026 Carvedilol 25 MG BID 08/10 2199 AC 08/11 PO 0026 Cholecalciferol 1,000 IU DAILY 08/11 1000 AC PO Doxazosin Mesylate 2 MG BID 08/10 2199 AC 08/11 PO 0026 Duloxetine HCl 60 MG DAILY 08/11 1000 AC PO Ferrous Sulfate 325 MG DAILY 08/11 1000 AC PO Fish Oil 1,050 MG DAILY 08/11 1000 AC PO Furosemide 120 MG BID 08/11 1000 AC IV Furosemide 120 MG ONCE ONE 08/10 1944 DC 08/10 IV 08/10 Furosemide 0 .STK-MED ONE 08/10 1941 DC IV Furosemide 0 .STK-MED ONE 08/10 1936 DC IV Furosemide 60 MG ONCE ONE 08/10 1929 CAN IV 08/10 1930 Heparin Sodium 5,000 UNIT Q8 08/11 599 AC 08/11 (Porcine) [place] 0645 Hydralazine HCl 100 MG TID 08/10 2199 AC 08/11 PO 0026 Insulin Aspart 0 TIDAC 08/11 08 AC SC Insulin Aspart 4 UNITS ONCE ONE 08/10 1929 DC 08/10 SC 08/10 Insulin Detemir 10 UNITS BID 08/10 220 AC 08/11 SC 0027 Isosorbide 60 MG DAILY 08/11 1000 AC Mononitrate PO Levothyroxine Sodium 0.15 MG 0708/11 07 AC PO Non-Formulary 0 SEE ADMIN CRITERIA 08/10 2129 UNV Medication ANY Results Last 48 Hrs of Labs/Mics: Laboratory Tests 08/11/17 0705: Anion Gap 16, Estimated GFR 15 L, BUN/Creatinine Ratio 31.3 H, Troponin I < 0.01 08/11/17 0203: Troponin I < 0.01 08/10/17 1745: Anion Gap 16, Estimated GFR 15 L, BUN/Creatinine Ratio 31.0 H, Glucose 129 H, Calcium 8.8, Iron 30 L, TIBC 347, Ferritin 39.8, Total Bilirubin 0.5, AST 8 L, ALT 25, Alkaline Phosphatase 62, Troponin I < 0.01, Wkl-P-Xmqzgktokvh Pept 8210 H, Total Protein 6.3, Albumin 3.7, Globulin 2.6, Albumin/Globulin Ratio 1.4, Vitamin B12 703, Free T4 1.57, Total T3 0.82 L, TSH &T3 &Free T4 Intrp 12.400 H 08/10/17 1618: Troponin I Cancelled, Axp-I-Qypoeekhqzp Pept Cancelled 08/10/17 1600: CBC w Diff NO MAN DIFF REQ, RBC 3.02 L, MCV 86.3, MCH 28.5, MCHC 33.0, RDW 13.9 , MPV 10.5 H, Gran % 64.2, Lymphocytes % 19.8 L, Monocytes % 8.7, Eosinophils % 6.3 H, Basophils % 1.0, Absolute Granulocytes 7.0 H, Absolute Lymphocytes 2.2, Absolute Monocytes 1.0 H, Absolute Eosinophils 0.7, Absolute Basophils 0.1 Assessment/Plan Assessment/Plan 71 year old female with h/o CAD, s/p 2 LCX stents in 2013, difficult to control HTN, HFpEF, DM, CRI, anemia, COPD presents with another episode of HFpEF. Last hospitalization was 3 weeks ago. Etiology likely due to difficult to control hypertension. Echo last hospitalization showed nl EF, moderate diastolic dysfunction. 1. HFpEF-diuresed 700 ml overnight-will continue lasix 120mg iv bid check daily weights keep Tovar in add metolazone if not adequated diuresis 2. ARF on CRI-creatinine unchanged since last night nephrology consult 3. HTN-BP elevated but this is baseline for the patient agree to hold ARB until renal function stable 4. CAD-stable, troponin negative 5. Hypothyroidism with elevated but improving TSH-continue Synthroid Continue telemetry? Yes
--- NOTE | 2017-08-11 13:56 | ULTRASOUND REPORT ---
EXAMINATION: US RETROPERITONEAL COMPLETE (RENAL) CLINICAL INFORMATION: Worsening kidney function. Evaluate for obstruction.. COMPARISON: Renal ultrasound 09/15/2016 TECHNIQUE: Real-time imaging of the kidneys and bladder. Examination limited secondary to patient body habitus. FINDINGS: RIGHT KIDNEY: 7.9 x 3.2 x 2.9 cm (SAG x AP x TRV). Diffuse mild cortical thinning. No calculi or focal parenchymal lesions. No hydronephrosis. LEFT KIDNEY: 10.9 x 5.7 x 5.6 cm (SAG x AP x TRV). The kidney is normal in size, contour, and echogenicity. Renal cortical thickness is normal. No calculi or focal parenchymal lesions. No hydronephrosis. BLADDER: The bladder is collapsed around a Tovar catheter and therefore cannot be evaluated. IMPRESSION: Similar appearance of atrophic right kidney. No renal calculi or hydronephrosis bilaterally. The bladder is collapsed around a Tovar catheter and cannot be evaluated.
[2017-08-11 14:00] VITALS: BP 108/60
--- NOTE | 2017-08-11 15:10 | Cons- Nephrology ---
General Information and HPI Consulting Request Date of Consult: 08/11/17 Requested By: Rima GUTIERREZ,Malissa Reason for Consult: STEVE on CKD Source of Information: patient, old records Exam Limitations: no limitations History of Present Illness: The patient is a 71-year-old woman with a past medical history most significant for stage IV chronic kidney disease with a baseline creatinine in the mid twos with subnephrotic proteinuria - follows with Dr Michelet Mitchell - thought to be secondary to a combination of hypertensive nephrosclerosis/diabetic nephropathy/ cardiorenal syndrome, heart failure with a preserved ejection fraction but elevated right-sided pressures, hypertension, diabetes, COPD who presents with shortness of breath. The patient fortunately has been hospitalized multiple times over the last few months -most recently 07/22 until 07/31 the CHF exacerbation. She required 2 mg IV Bumex twice a day. She was discharged on 2 mg Bumex twice daily. He now comes in with increasing shortness of breath, 15 pound weight gain, worsening edema in the legs over the last week or so. She has been continued on the Bumex 2 mg twice a day and follows at the CHF clinic once a week to get 80 mg of IV Lasix. Her bumetanide was increased to 4 mg twice a day just prior to coming to the hospital without much effect. Ultimately she was sent in the ER for the symptoms. In presentation, blood pressure 138/64afebrile. Notable for creatinine 3.3 which had been 2.5 on August 05. She notes that on 07/29 was 1.9 which is during the last admission. This x-ray with worsening edema. An ultrasound with left kidney 10.9 cm and right kidney 7.8 cm without any hydronephrosis. She does have a Tovar catheter. He has been given 120 mg of IV Lasix twice. He is laying flat. Note that she denies any NSAID use at home. She denies any urinary difficulty. Allergies/Medications Allergies: Coded Allergies: povidone-iodine (From BETADINE) (RASH 04/11/17) ITCH PER ANTIBIOTIC ORDER SHEET OF 12/04/16 (SJS) soap (From BETADINE) (RASH 04/11/17) PARISH Inhibitors (Mild, COUGH 04/11/17) Home Med List: Albuterol Sulfate (Proair Hfa) 90 MCG HFA.AER.AD 1 PUF INH AD PRN ASTHMA ( Reported) Alpha Lipoic Acid 300 MG CAPSULE 2 CAP PO BID NEUROPATHIC PAIN (Reported) Amlodipine Besylate (Norvasc) 10 MG TABLET 1 TAB PO DAILY HTN . Aspirin (Ecotrin*) 81 MG TABLET.DR 1 TAB PO QPM HEART/BLOOD (Reported) Azilsartan Medoxomil (Edarbi) 80 MG TABLET 1 TAB PO DAILY BP (Reported) Bumetanide 1 MG TABLET 4 TAB PO BID WATER RETENTION (Reported) Carvedilol (Coreg) 25 MG TABLET 1 TAB PO BID HTN (Reported) Cholecalciferol (Vitamin D3) (Vitamin D) 1,000 UNIT TABLET 2 TAB PO DAILY VITAMIN SUPPORT (Reported) Difluprednate (Durezol) 0.05 % DROPS 1 GTT OD TID RIGHT EYE (Reported) Doxazosin Mesylate (Cardura) 2 MG TABLET 1 TAB PO BID BP (Reported) Dulaglutide (Trulicity) 0.75 MG/0.5 ML PEN.INJCTR 0.5 MG SC QMON diabetes ( Reported) Duloxetine HCl 60 MG CAPSULE.DR 1 CAP PO DAILY NERVE PAIN (Reported) Ferrous Sulfate 325 MG (65 MG IRON) TABLET.DR 1 TAB PO DAILY ANEMIA Fluticasone/Salmeterol (Advair 250-50 Diskus) 1 EACH BLST.W.DEV 1 PUF INH BID ASTHMA (Reported) Hydralazine HCl 100 MG TABLET 1 TAB PO TID BP (Reported) Insulin Aspart (Novolog) 100 UNIT/ML VIAL DM (Reported) Insulin Detemir (Levemir) 100 UNIT/ML VIAL 26 UNITS SC QPM DM Isosorbide Mononitrate (Isosorbide Mononitrate ER) 60 MG TAB.ER.24H 1 TAB PO DAILY HEART (Reported) Levothyroxine Sodium 150 MCG TABLET 1 TAB PO DAILY Hypothyroidism . [place]-3 Fatty Acids/Fish Oil (Fish Oil 1,000 MG Capsule) 340 MG-1,000 MG CAPSULE 1 CAP PO TID SUPPLEMENT (Reported) Rosuvastatin Calcium (Crestor) 20 MG TABLET 1 TAB PO QPM HYPERCHOLESTROLEMIA (Reported) Current Medications: Current Medications Sig/Larissa Start time Last Medication Dose Route Stop Time Status Admin Albuterol Sulfate 3 ML Q4P PRN 08/11 1045 AC INH Albuterol Sulfate 1 PUF Q4P PRN 08/10 2200 AC INH Amlodipine Besylate 10 MG DAILY 08/11 1000 AC 08/11 PO 1033 Aspirin Buffered 81 MG QPM 08/10 2200 AC 08/11 PO 0026 Atorvastatin Calcium 40 MG 1700 08/11 1700 AC PO Budesonide/ 2 PUF BID 08/10 2200 AC 08/11 Formoterol Fumarate INH 1032 Carvedilol 25 MG BID 08/10 2200 AC 08/11 PO 1033 Cholecalciferol 1,000 IU DAILY 08/11 1000 AC 08/11 PO 1033 Doxazosin Mesylate 2 MG BID 08/10 2200 AC 08/11 PO 1033 Duloxetine HCl 60 MG DAILY 08/11 1000 AC 08/11 PO 1033 Ferrous Sulfate 325 MG DAILY 08/11 1000 AC 08/11 PO 1033 Fish Oil 1,050 MG DAILY 08/11 1000 AC 08/11 PO 1033 Furosemide 120 MG BID 08/11 1000 AC 08/11 IV 1032 Furosemide 120 MG ONCE ONE 08/10 1944 DC 08/10 IV 08/10 194 193 Furosemide 0 .STK-MED ONE 08/10 1941 DC IV Furosemide 0 .STK-MED ONE 08/10 1936 DC IV Furosemide 60 MG ONCE ONE 08/10 193 CAN IV 08/10 193 Heparin Sodium 5,000 UNIT Q8 08/11 0600 AC 08/11 (Porcine) SC 1448 Hydralazine HCl 100 MG TID 08/10 2200 AC 08/11 PO 1033 Insulin Aspart 0 TIDAC 08/11 0800 AC SC Insulin Aspart 4 UNITS ONCE ONE 08/10 193 DC 08/10 SC 08/10 193 193 Insulin Detemir 10 UNITS BID 08/10 2200 AC 08/11 SC 1052 Isosorbide 60 MG DAILY 08/11 1000 AC 08/11 Mononitrate PO 1033 Levothyroxine Sodium 0.15 MG 0700 08/11 0700 AC 08/11 PO 1033 Non-Formulary 0 SEE ADMIN CRITERIA 08/10 2129 UNV Medication ANY Patient Medication 1 ED ONE ONE 08/11 1145 DC Teaching ED 08/11 1146 Review of Systems Review of Systems: Complete 14 point ROS neg except as per HPI Past History Travel History Traveled to [place] past 21 day No Medical History Blood Transfusion Hx: No Neurological: vertigo EENT: SLEEP APNEA Cardiovascular: CHF, hypertension Respiratory: asthma, pneumonia, SLEEP APNEA NOCTURNAL CPAP Gastrointestinal: NONE Hepatic: NONE Renal: CKD 3 Musculoskeletal: SPINAL STENOSIS 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 SISTER (Pancreatic cancer). Psychosocial History Who Do You Live With? spouse Services at Home: None Primary Language: Ivorian Smoking Status: Never Smoked ETOH Use: denies use Illicit Drug Use: denies illicit drug use Functional Ability ADLs Independent: dressing, eating, toileting, bathing. Ambulation: cane, Patient used a cane when outside the house but ambulates independently indoors. IADLs Independent: finances, food prep, telephone, medication admin. Needs Assist: shopping, housework, transportation. Exam & Diagnostic Data Vital Signs and I&O Vital Signs Date Time Temp Pulse Resp B/P B/P Pulse O2 O2 Flow FiO2 Mean Ox Delivery Rate 08/11 1400 97.3 63 18 108/60 97 Nasal 2.0L Cannula 08/11 1033 158/68 08/11 1033 158/68 03/ 1033 158/68 03/ 1033 158/68 03/07 1032 Room Air 08/11 1032 96 Nasal 2.0L Cannula 08/11 0800 96 Nasal 2.0L Cannula 08/11 0718 98.0 79 18 158/68 98 CPAP / 0106 67 97 /07 0026 68 160/60 03/ 0026 68 160/60 03/ 0000 Nasal 2.0L Cannula 08/10 2250 68 98 / 2229 98.1 73 16 160/60 97 Nasal 2.0L Cannula 08/10 2153 65 18 131/60 98 Nasal 2.0L Cannula 08/10 1952 98.3 63 20 141/63 99 Nasal 2.0L Cannula 08/10 1808 62 18 161/70 100 Nasal 2.0L Cannula 08/10 1659 Nasal 3.0L Cannula 08/10 1542 97.2 70 22 138/64 97 Nasal 2.0L Cannula Intake & Output 08/11 1600 07 0400 08/10 1600 08/10 0400 08/09 1600 08/09 0400 Intake Total 250 0 Output Total 1200 200 Balance -950 -200 Intake, Oral 250 0 Output, Urine 1200 200 Patient 185 lb 191 lb Weight Weight Bed scale Measurement Method Physical Exam: Gen - OK appearing, laying flat Head - NCAT Eyes - anicteric sclera, EOMI Neck - supple, no LAD CV - RRR, no m/r/g Chest - clear, no w/r/r Abd - soft, NTND Upper ext - warm, no edema Lower ext - warm, +edema Skin - no rash or jaundice Neuro - AOX3, grossly nonfocal Results Pertinent Lab Results: Laboratory Tests 08/11 08/11 08/10 0705 0203 1745 Chemistry Sodium (137 - 145 mmol/L) 134 L 134 L Potassium (3.5 - 5.1 mmol/L) 4.0 4.2 Chloride (98 - 107 mmol/L) 99 97 L Carbon Dioxide (22 - 30 mmol/L) 20 L 21 L Anion Gap (5 - 16) 16 16 BUN (7 - 17 mg/dL) 97 H 96 H Creatinine (0.5 - 1.0 mg/dL) 3.1 H 3.1 H Estimated GFR (>60 ml/min) 15 L 15 L BUN/Creatinine Ratio (7 - 25 %) 31.3 H 31.0 H Glucose (65 - 99 mg/dL) 129 H Calcium (8.4 - 10.2 mg/dL) 8.8 Iron (37 - 170 ug/dL) 30 L TIBC (265 - 497 ug/dL) 347 Ferritin (11.1 - 264 ng/mL) 39.8 Total Bilirubin (0.2 - 1.3 mg/dL) 0.5 AST (14 - 36 U/L) 8 L ALT (9 - 52 U/L) 25 Alkaline Phosphatase (<127 U/L) 62 Troponin I (< 0.11 ng/ml) < 0.01 < 0.01 < 0.01 Nmi-Q-Gdwihyzfbur Pept (<125 pg/mL) 8210 H Total Protein (6.3 - 8.2 g/dL) 6.3 Albumin (3.5 - 5.0 g/dL) 3.7 Globulin (1.9 - 4.2 gm/dL) 2.6 Albumin/Globulin Ratio (1.1 - 2.2 %) 1.4 Vitamin B12 (239 - 931 pg/mL) 703 Free T4 (0.78 - 2.44 ng/dL) 1.57 Total T3 (0.97 - 1.69 ng/mL) 0.82 L TSH &T3 &Free T4 Intrp (0.270 - 4.20 uIU/mL) 12.400 H /08/10 1618 1600 Chemistry Troponin I Cancelled Ghk-X-Dxlocsbtyat Pept Cancelled Hematology CBC w Diff NO MAN DIFF REQ WBC (4.8 - 10.8 /CUMM) 12.1 H RBC (4.20 - 5.40 /CUMM) 3.02 L Hgb (12.0 - 16.0 G/DL) 8.6 L Hct (37 - 47 %) 26.1 L MCV (81.0 - 99.0 FL) 86.3 MCH (27.0 - 31.0 PG) 28.5 MCHC (33.0 - 37.0 G/DL) 33.0 RDW (11.5 - 14.5 %) 13.9 Plt Count (130 - 400 /CUMM) 213 MPV (7.4 - 10.4 FL) 10.5 H Gran % (42.2 - 75.2 %) 64.2 Lymphocytes % (20.5 - 51.1 %) 19.8 L Monocytes % (1.7 - 9.3 %) 8.7 Eosinophils % (0 - 5 %) 6.3 H Basophils % (0.0 - 2.0 %) 1.0 Absolute Granulocytes (1.4 - 6.5 /CUMM) 7.0 H Absolute Lymphocytes (1.2 - 3.4 /CUMM) 2.2 Absolute Monocytes (0.10 - 0.60 /CUMM) 1.0 H Absolute Eosinophils (0.0 - 0.7 /CUMM) 0.7 Absolute Basophils (0.0 - 0.2 /CUMM) 0.1 Imaging/Other Studies: Chest X-ray and Renal US reviewed Assessment/Plan Assessment/Recommendations Assessment: Stage IV CKD - subnephrotic proteinuria - Thought to be multifactorial 2/2 diabetic nephropathy, hypertensive nephrosclerosis, and cardiorenal factors - should also mention that she has an atrophic kidney suggestive of renovascular disease. STEVE on CKD - Presumably 2/2 cardiorenal factors with primarily R sided symptoms and venous congestion. May improve with diuresis. No evidence of urinary obstruction. Anemia - May be 2/2 decreased erythropoetin production from CKD. Should check iron stores, folate, Vit B12, stool guaiac, and retic count. But may ultimately need RENZO. Recommendations: -Cont diuretics as you are - if no improvement in weight with current regimen, would add metolazone 5mg 30min prior to lasix dose -Standing daily weights -Check iron stores, folate, Vit B12, stool guaiac, and retic count -Check UA with microscopic analysis, Uprot, UCr Please call [phone] with ?'s
[2017-08-11 23:58] VITALS: BP 138/62
--- NOTE | 2017-08-12 01:48 | Event Note ---
Event Note Event Note: S: Pt in new onset afib B: Pt admitted for chf exascerbation A/R: Called cardiology (Dr. Mtz). Informed him the patient went into afib around 12:50AM. Explained the patient's HR was controlled in the mid 80s-90s with occasional increases to <110. Informed that the patient is taking .15mg levothyroxine and carvedilol 25mg BID. We asked regarding anticoagulation at this time. He states that they will decide in the AM wether or not to anticoagulate her. Patient was found to be back in NSR around 230AM. EKG at 253 revealed NSR with multiple pvcs.
[2017-08-12 07:20] VITALS: BP 130/64
--- NOTE | 2017-08-12 07:42 | PN- Cardiology ---
Subjective Subjective: Patient feels good, no dyspnea at rest, no palpitations, dizziness or chest pain Review of Systems: 12 point ROS negative Objective Vital Signs and I&Os Vital Signs Date Time Temp Pulse Resp B/P B/P Pulse O2 O2 Flow FiO2 Mean Ox Delivery Rate 08/12 0720 98.3 69 18 130/64 93 Nasal Cannula 08/12 0304 66 95 08/12 0008 87 97 08/11 2358 98.6 67 18 138/62 96 Nasal 1.5L Cannula 08/11 2231 69 94 08/11 2119 63 110/70 08/11 2119 63 110/70 08/11 2106 Nasal 2.0L Cannula 08/11 1827 110/70 08/11 1400 97.3 63 18 108/60 97 Nasal 2.0L Cannula 08/11 1033 158/68 08/11 1033 158/68 08/11 1033 158/68 08/11 1033 158/68 08/11 1032 Room Air 08/11 1032 96 Nasal 2.0L Cannula 08/11 0800 96 Nasal 2.0L Cannula Intake & Output 08/12 0800 08/12 0000 08/11 1600 08/11 0800 08/11 0000 08/10 1600 Intake Total 250 0 Output Total 300 450 750 200 Balance -300 -450 -500 -200 Intake, Oral 250 0 Output, Urine 300 450 750 200 Patient 188 lb 185 lb 191 lb Weight Weight Bed scale Measurement Method Physical Exam: HEENT-PERRLA Neck-JVP mildly elevated, no bruits Lungs-clear bilaterally Heart-S1S2 regular Abdomen-soft, not tender, BS+, no organomegaly no masses Extr-trace edema, 2+ pulses, no cyanosis Neuro-non focal Skin-no rasch Current Medications: Current Medications Sig/Larissa Start time Last Medication Dose Route Stop Time Status Admin Acetaminophen 650 MG ONCE ONE 08/12 314 DC 08/12 PO 08/12 031 0300 Albuterol Sulfate 3 ML Q4P PRN 08/11 1045 AC INH Albuterol Sulfate 1 PUF Q4P PRN 08/10 2200 AC INH Amlodipine Besylate 10 MG DAILY 08/11 1000 AC 08/11 PO 1033 Aspirin Buffered 81 MG QPM 08/10 2200 AC 08/11 PO 2119 Atorvastatin Calcium 40 MG 1700 08/11 1700 AC 08/11 PO 1827 Budesonide/ 2 PUF BID 08/100 AC 08/11 Formoterol Fumarate INH 2120 Carvedilol 25 MG BID 08/10 2200 AC 08/11 PO 2119 Cholecalciferol 1,000 IU DAILY 08/11 1000 AC 08/11 PO 1033 Doxazosin Mesylate 2 MG BID 08/10 2200 AC 08/11 PO 2119 Duloxetine HCl 60 MG DAILY 08/11 1000 AC 08/11 PO 1033 Ferrous Sulfate 325 MG DAILY 08/11 1000 AC 08/11 PO 1033 Fish Oil 1,050 MG DAILY 08/11 1000 AC 08/11 PO 1033 Furosemide 120 MG BID 08/11 1000 AC 08/11 IV 2241 Heparin Sodium 5,000 UNIT Q8 08/11 0600 AC 08/12 (Porcine) SC 0625 Hydralazine HCl 100 MG TID 08/100 AC 08/11 PO 211 Insulin Aspart 0 TIDAC 08/11 0800 AC 08/11 SC 1827 Insulin Detemir 10 UNITS BID 08/10 2200 AC 08/11 SC 2246 Isosorbide 60 MG DAILY 08/11 1000 AC 08/11 Mononitrate PO 103 Levothyroxine Sodium 0.15 MG 0700 08/11 0700 AC 08/12 PO 0625 Metolazone 5 MG 08/11 213 AC 08/11 PO 211 Non-Formulary 0 SEE ADMIN CRITERIA 08/10 2129 UNV Medication ANY Nystatin 1 RICARDO TID PRN 08/11 2345 AC TOP Patient Medication 1 ED ONE ONE 08/11 1145 DC Teaching ED 08/11 1146 Results Last 48 Hrs of Labs/Mics: Laboratory Tests 08/12/17 0638: Sodium Pending, Potassium Pending, Chloride Pending, Carbon Dioxide Pending, Anion Gap Pending, BUN Pending, Creatinine Pending, BUN/Creatinine Ratio Pending , CBC w Diff Pending, WBC Pending, RBC Pending, Hgb Pending, Hct Pending, MCV Pending, MCH Pending, MCHC Pending, RDW Pending, Plt Count Pending, MPV Pending, Retic Count Pending 08/12/17 0115: Troponin I < 0.01 08/11/17 1810: Ur Random Creatinine 67.8, U Random Total Protein 83 H 08/11/17 1810: Urinalysis LIGHT H, Urine Color YEL, Urine Clarity HAZY H, Urine pH 6.0, Ur Specific [place] 1.020, Urine Protein 30 H, Urine Ketones NEG, Urine Nitrite NEG, Urine Bilirubin NEG, Urine Urobilinogen 0.2, Ur Leukocyte Esterase TRACE H , Ur Microscopic SEDIMENT EXAMINED, Urine RBC 5-10 H, Urine WBC 3-5 H, Ur Epithelial Cells FEW, Urine Bacteria FEW H, Hyaline Casts 5-10 H, Urine Mucus FEW, Urine Hemoglobin TRACE-INTACT, Urine Glucose NEG 08/11/17 0705: Anion Gap 16, Estimated GFR 15 L, BUN/Creatinine Ratio 31.3 H, Iron 35 L, TIBC 331, Ferritin 39.1, Troponin I < 0.01, Vitamin B12 652, Folate 14.0 08/11/17 0203: Troponin I < 0.01 08/10/17 1745: Anion Gap 16, Estimated GFR 15 L, BUN/Creatinine Ratio 31.0 H, Glucose 129 H, Calcium 8.8, Iron 30 L, TIBC 347, Ferritin 39.8, Total Bilirubin 0.5, AST 8 L, ALT 25, Alkaline Phosphatase 62, Troponin I < 0.01, Mfp-I-Lwnuckwyihp Pept 8210 H, Total Protein 6.3, Albumin 3.7, Globulin 2.6, Albumin/Globulin Ratio 1.4, Vitamin B12 703, Free T4 1.57, Total T3 0.82 L, TSH &T3 &Free T4 Intrp 12.400 H 08/10/17 1618: Troponin I Cancelled, Omp-V-Vydgvtyabzc Pept Cancelled 08/10/17 1600: CBC w Diff NO MAN DIFF REQ, RBC 3.02 L, MCV 86.3, MCH 28.5, MCHC 33.0, RDW 13.9 , MPV 10.5 H, Gran % 64.2, Lymphocytes % 19.8 L, Monocytes % 8.7, Eosinophils % 6.3 H, Basophils % 1.0, Absolute Granulocytes 7.0 H, Absolute Lymphocytes 2.2, Absolute Monocytes 1.0 H, Absolute Eosinophils 0.7, Absolute Basophils 0.1 Recent Imaging Studies: ekg- AF, 90 BPM, PVC, no ST changes f/u ekg-SR with PVC Assessment/Plan Assessment/Plan Problems: 1. 2 hour episode of asymptomatic PAF at night, SAS may have trigerred but she used CPAP. This is first time we detected PAF. She is currently back in sinus with occasional PVC's CHADVAsc score is 5. Risk and benefit of anticoagulation discussed with the patient. Will start low dose Eliquis 2.5 mg bid 2. HFpEF-clinically improved, metolazone added last night 3 ARFon CRI-renal function pending today 4. HTN-BP lower last night 5. CAD-stable, no ekg replarization changes, no angina Plan: metolazone 5 mg po today 30 min prior am dose of Lasix continue Lasix 120 mg iv bid check renal function, electrolytes Keep K+ 4.0-5.0 start Eliquis 2.5 mg po bid continue low dose aspirin keep on tely keep of ARB until renal function stable Continue telemetry? Yes
[2017-08-12 08:14] LABS: ABSOLUTE BASOPHIL COUNT 0 /CUMM (0.0-0.2); ABSOLUTE EOSINOPHIL COUNT 0.3 /CUMM (0.0-0.7); ABSOLUTE GRANULOCYTE CT 4.8 /CUMM (1.4-6.5); ABSOLUTE LYMPH COUNT 1.4 /CUMM (1.2-3.4); ABSOLUTE MONOCYTE COUNT 0.9 /CUMM (0.10-0.60); BASOPHIL % 0.6 % (0.0-2.0); EOSINOPHIL % 3.9 % (0-5); GRANULOCYTE % 64.2 % (42.2-75.2); HEMATOCRIT 22.6 % (37-47); MEAN CORPUSCULAR HGB CONC 34.1 G/DL (33.0-37.0); MEAN CORPUSCULAR VOLUME 85.1 FL (81.0-99.0); MEAN PLATELET VOLUME 9.8 FL (7.4-10.4); PLATELET COUNT 194 /CUMM (130-400); RBC DISTRIBUTION WIDTH 13.8 % (11.5-14.5); RED BLOOD CELL CT 2.66 /CUMM (4.20-5.40); WHITE BLOOD CELL COUNT 7.4 /CUMM (4.8-10.8)
--- NOTE | 2017-08-12 08:35 | PN- Housestaff ---
Jean Mc 08/12/17822: Subjective Follow-up For: CHF exacerbation. Paroxysmal atrial fibrillation. Tele-Events Since Last Visit: Patient went into A. fib overnight. Subjective: Denies any palpitations. Denies any chest pain. No prior history of atrial fibrillation. Report improve breathing. Continues to be on CPAP overnight. Complains of mild earache. Review of Systems Constitutional: Reports: see HPI. Objective Last 24 Hrs of Vital Signs/I&O Vital Signs Date Time Temp Pulse Resp B/P B/P Pulse O2 O2 Flow FiO2 Mean Ox Delivery Rate 08/12 08 93 08/12 0822 93 Nasal 1.0L Cannula 08/12 0720 98.3 69 18 130/64 93 Nasal Cannula 08/12 0304 66 95 08/12 0008 87 97 08/11 2358 98.6 67 18 138/62 96 Nasal 1.5L Cannula 08/11 2231 69 94 / 2119 63 110/70 / 2119 63 110/70 08/11 2106 Nasal 2.0L Cannula 08/11 1827 110/70 / 1400 97.3 63 18 108/60 97 Nasal 2.0L Cannula 08/11 1033 158/68 03/07 1033 158/68 03/07 1033 158/68 03/07 1033 158/68 03/07 1032 Room Air 08/11 1032 96 Nasal 2.0L Cannula Intake & Output 08/12 1600 /08 0800 /08 0000 Intake Total 325 Output Total 1050 Balance -725 Intake, Oral 325 Output, Urine 1050 Patient 188 lb Weight Physical Exam General Appearance: Alert, Oriented X3 HEENT: dry mucous membranes. No erythema, exudates on pharyngeal exam. Neck: Supple, No LAD Cardiovascular: Regular Rate, Normal S1, Normal S2 Lungs: Clear to Auscultation, decreased bibasilar crackles, good air movement. Extremities: No Clubbing, No Cyanosis, 2+ pitting edema bilaterally. Current Medications: Current Medications Sig/Larissa Start time Last Medication Dose Route Stop Time Status Admin Acetaminophen 650 MG ONCE ONE 08/12 314 DC 08/12 PO 08/13 315 0300 Albuterol Sulfate 3 ML Q4P PRN 08/11 1045 AC INH Albuterol Sulfate 1 PUF Q4P PRN 08/10 2200 AC INH Amlodipine Besylate 10 MG DAILY 08/11 1000 AC 08/11 PO 1033 Aspirin Buffered 81 MG QPM 08/10 2200 AC 08/11 PO 2119 Atorvastatin Calcium 40 MG 1700 08/11 1700 AC 08/11 PO 1827 Budesonide/ 2 PUF BID 08/10 2200 AC 08/11 Formoterol Fumarate INH 2120 Carvedilol 25 MG BID 08/10 2200 AC 08/11 PO 2119 Cholecalciferol 1,000 IU DAILY 08/11 1000 AC 08/11 PO 1033 Doxazosin Mesylate 2 MG BID 08/10 2200 AC 08/11 PO 2119 Duloxetine HCl 60 MG DAILY 08/11 1000 AC 08/11 PO 1033 Ferrous Sulfate 325 MG DAILY 08/11 1000 AC 08/11 PO 1033 Fish Oil 1,050 MG DAILY 08/11 1000 AC 08/11 PO 1033 Furosemide 120 MG BID 08/11 1000 AC 08/11 IV 2241 Heparin Sodium 5,000 UNIT Q8 08/11 0600 AC 08/12 (Porcine) SC 0625 Hydralazine HCl 100 MG TID 08/10 2200 AC 08/11 PO 2119 Insulin Aspart 0 TIDAC 08/11 0800 AC 08/11 SC 1827 Insulin Detemir 10 UNITS BID 08/10 2200 AC 08/11 SC 2246 Isosorbide 60 MG DAILY 08/11 1000 AC 08/11 Mononitrate PO 1033 Levothyroxine Sodium 0.15 MG 0700 08/11 0700 AC 08/12 PO 0625 Metolazone 5 MG 2130 08/11 2130 AC 08/11 PO 2119 Non-Formulary 0 SEE ADMIN CRITERIA 08/10 2129 UNV Medication ANY Nystatin 1 RICARDO TID PRN 08/11 2345 AC TOP Oxycodone/ 1 TAB ONCE ONE 08/12 0815 DC Acetaminophen PO 08/12 0816 Patient Medication 1 ED ONE ONE 08/11 1145 DC Teaching ED 08/11 1146 Phenol 2 SPRAY Q2P PRN 08/12 0830 UNVr EXT Last 24 Hrs of Lab/Jose Alejandro Results Last 24 Hrs of Labs/Mics: Laboratory Tests 08/12/17 0638: Sodium Pending, Potassium Pending, Chloride Pending, Carbon Dioxide Pending, Anion Gap Pending, BUN Pending, Creatinine Pending, BUN/Creatinine Ratio Pending , CBC w Diff Pending, WBC Pending, RBC Pending, Hgb Pending, Hct Pending, MCV Pending, MCH Pending, MCHC Pending, RDW Pending, Plt Count Pending, MPV Pending, Retic Count Pending 08/12/17 0115: Troponin I < 0.01 08/11/17 1810: Ur Random Creatinine 67.8, U Random Total Protein 83 H 08/11/17 181: Urinalysis LIGHT H, Urine Color YEL, Urine Clarity HAZY H, Urine pH 6.0, Ur Specific [place] 1.020, Urine Protein 30 H, Urine Ketones NEG, Urine Nitrite NEG, Urine Bilirubin NEG, Urine Urobilinogen 0.2, Ur Leukocyte Esterase TRACE H , Ur Microscopic SEDIMENT EXAMINED, Urine RBC 5-10 H, Urine WBC 3-5 H, Ur Epithelial Cells FEW, Urine Bacteria FEW H, Hyaline Casts 5-10 H, Urine Mucus FEW, Urine Hemoglobin TRACE-INTACT, Urine Glucose NEG Assessment/Plan Assessment: 71-year-old woman with extensive cardiac history with frequent recent CHF exacerbations, recent nonrespondence 2 weekly Lasix infusion, increased Bumex dose, with subsequent 15 pound weight gain in last 1 week, warranting telemetry admission for CHF exacerbation. 1. Acute on chronic CHF exacerbation. ACS ruled out. Weight increased by 3 pounds. - 725 overnight. On high-dose Lasix, 120 mg twice a day. Metolazone added yesterday. Continue Daily weights. Monitor BUN/creatinine. 2. New onset A. Fib. CHADsVasc of 5. Started on 2.5 mg BID. 3. Acute kidney injury, history of CKD. Likely a result of decreased cardiac output and resultant decreased renal perfusion. Obstruction ruled out. Continue aggressive diuresis. 4. Diabetes. Sugars well controlled on Levemir 10 mg twice a day and insulin sliding scale. Continue to monitor. 5. Hypertension. Continue amlodipine, Imdur, hydralazine, Coreg and Cardura. 6. History of CAD. Continue aspirin and statin. 7. Hypothyroidism. TSH has trended down since July 2017. Dose has been increased from 0.125 to 0.15 daily. Outpatient follow-up with endocrinology. Continue other meds. Full code. CHF diet. Heparin for DVT prophylaxis. Problem List: 1. CHF (congestive heart failure) Pain Ratin Pain Location: Ear Pain Goal: Remain pain free Pain Plan: Oxycodone once Tylenol PRN Tomorrow's Labs & Rationales: STEVE on CKD Erasmo Abarca MD[place]atana 08/12/17 1126: Attending MD Review Statement Attending Statement Attending MD Statement: examined this patient, discuss w/resident/PA/LEAD DEVELOPER, agreed w/resident/PA/LEAD DEVELOPER, reviewed EMR data (avail), discussed with nursing, discussed with case mgmt, amended to note Attending Assessment/Plan: Patient seen and examined. Resting comfortably not in any acute distress. Overnight on telemetry monitoring she went briefly into atrial fibrillation and converted back to normal sinus rhythm. She has remained asymptomatic. She actually reports feeling less short of breath compared to presentation. She diuresed about 1200 cc yesterday and was in a negative fluid balance of 950 cc however she appears to have had with gain overnight. Laboratory data shows creatinine level to be stable however there is some worsening of her BUN. Recommendations: -Discontinue Tovar catheter. -Continue current dose of diuresis. If no significant weight loss noted overnight may consider increasing dose of diuretic therapy further. -Mobilize patient as tolerated. -Awaiting results of hemoglobin level this morning. Start Venofer as recommended by the nephrology service. -Check stool guaiac. -Anticoagulant therapy has been initiated on account of her proximal atrial fibrillation with an elevated chads 2 vascular score. -Given need for ongoing diuresis level of care will be changed to inpatient status today.
--- NOTE | 2017-08-12 10:41 | Discharge Summary ---
Visit Information Visit Dates Admission Date: 08/10/17 Discharge Date: 08/16/17 Hospital Course Course Attending Physician: Malissa Abarca MD Primary Care Physician: Sal GUTIERREZ,[facility] Course: 71 year old woman with history of CAD status post stents, hypertension, diabetes , heart failure with preserved ejection fraction, CKD stage IV, COPD with recent admissions for CHF exacerbation, was brought in for evaluation of dyspnea on 11/2017. Patient's jail reported 15 pound weight gain in the preceding 1 week and worsening lower extremity edema. She does use oxygen at home, but her requirement had to be increased from 2-3 L. She also reported decreased urination despite taking higher dose of Bumex 4 mg twice a day. Patient also goes to CHF clinic where she receives IV Lasix, but despite the aforementioned her breathing started continued to worsen and she was admitted for acute on chronic CHF exacerbation. Vitals upon presentation were stable, except for oxygen saturations 97% on 3 L. Exam was significant for bibasilar crackles and bilateral lower extremity edema. Labs showed a white count of 12.1, H&H at baseline, sodium 134, bicarbonate of 21, BUN/creatinine of 96/3.1. Troponin negative and proBNP 8210. Checks x-ray revealed central vascular prominence with increasing bronchial wall thickening favoring worsening edema. EKG showed sinus rhythm, with no acute changes. 1. Acute on chronic CHF. Patient was admitted to telemetry. ACS was ruled out with serial troponins and EKGs. Patient was aggressively diuresed with Lasix 120 mg IV twice a day, and dose of metolazone 5 mg daily was added as well. Patient continued to diurese well, with subsequent improvement in her respiratory status. On 08/16/2017, patient was deemed stable from respiratory standpoint, her CHF improved and stable to be discharged on her home dose of Bumex with close follow -up with CHF clinic, fabricator artificial breast and copy coordinator. She'll also receive 2.5 mg metolazone 2 times a week. 2. New onset atrial fibrillation. On the night of 08/11/2017, patient had an episode of atrial fibrillation, which was documented with an EKG. Patient denied any previous history, denied any chest pain or palpitations at that time. Given her high chadsvasc score of 5, she was started on Eliquis 2.5 mg twice a day. 3. STEVE on CKD. A renal ultrasound was obtained to rule out obstruction, which remained negative for any obstruction. Her worsening BUN/creatinine was thought presumably to be secondary to cardiorenal factors. She was diuresed to improve her cardiac status. Her kidney function remained stable, at baseline on 08/16/2017. 4. Anemia, likely related to CKD and iron deficiency. She received Venofer for her iron deficient status. She received 3 doses of IV iron sucrose, and is pending for 2 more doses which she received at the CHF clinic. She will also follow-up with nephrology for Epogen dosing for her chronic anemia as an outpatient. Allergies: Coded Allergies: povidone-iodine (From BETADINE) (RASH 04/11/17) ITCH PER ANTIBIOTIC ORDER SHEET OF 12/04/16 (SJS) soap (From BETADINE) (RASH 04/11/17) PARISH Inhibitors (Mild, COUGH 04/11/17) Disposition Summary Disposition Principal Diagnosis: Heart failure with preserved ejection fraction Additional Diagnosis: Paroxysmal atrial fibrillation Iron deficiency anemia Anemia of chronic disease Hypertension Discharge Disposition: home health services Discharge Instructions General Discharge Information Code Status: Full Code Patient's Diet: Low sodium diet/CHF diet Patient's Activity: As tolerated. Follow-Up Instructions/Appts: Please follow-up with the CHF clinic as advised. Please follow-up with fabricator artificial breast as an outpatient. Please follow-up with primary care physician as an outpatient. Please follow-up with copy coordinator as an outpatient. Medications at Discharge Discharge Medications: Continue taking these medications: Hydralazine HCl (Hydralazine HCl) 100 MG TABLET 1 Tablet ORAL THREE TIMES DAILY Comments: Fluticasone/Salmeterol (Advair 250-50 Diskus) 1 EACH BLST.W.DEV 1 Puff Inhale through mouth TWICE DAILY Comments: NOT GIVEN THIS ADMISSION. SYMBOCORT GIVEN SUBSTITUTE Rosuvastatin Calcium (Crestor) 20 MG TABLET 1 Tablet ORAL Every night Comments: GIVEN LIPITOR IN HOSPITAL Last Taken: 08/15/17 Time: 4:02P.M Carvedilol (Coreg) 25 MG TABLET 1 Tablet ORAL TWICE DAILY Qty = 30 Comments: Last Taken:08/16/17 Time: 9:14A.M Albuterol Sulfate (Proair Hfa) 90 MCG HFA.AER.AD 1 Puff Inhale through mouth As Directed as needed for ASTHMA Comments: NOT GIVEN IN HOSPITAL Aspirin (Ecotrin*) 81 MG TABLET. 1 Tablet ORAL Every night Comments: Last Taken: 08/15/17 Time: 9:44P.M Alpha Lipoic Acid (Alpha Lipoic Acid) 300 MG CAPSULE 2 Capsule ORAL TWICE DAILY Comments: NOT GIVEN IN HOSPITAL Cholecalciferol (Vitamin D3) (Vitamin D) 1,000 UNIT TABLET 2 Tablet ORAL DAILY Comments: Last Taken:08/16/17 Time:9:14A.M Ferrous Sulfate (Ferrous Sulfate) 325 MG (65 MG IRON) TABLET. 1 Tablet ORAL DAILY Qty = 30 Comments: Last Taken:08/16/17 Time: 9:14A.M Bumetanide (Bumetanide) 1 MG TABLET 4 Tablet ORAL TWICE DAILY Comments: NOT GIVEN THIS ADMISSION Duloxetine HCl (Duloxetine HCl) 60 MG CAPSULE.DR 1 Capsule ORAL DAILY Comments: Last Taken:08/16/17 Time:9:14A.M Azilsartan Medoxomil (Edarbi) 80 MG TABLET 1 Tablet ORAL DAILY Comments: NOT GIVEN THIS ADMISSION Isosorbide Mononitrate (Isosorbide Mononitrate ER) 60 MG TAB.ER.24H 1 Tablet ORAL DAILY Comments: Last Taken:08/16/17 Time:9:14A.M Doxazosin Mesylate (Cardura) 2 MG TABLET 1 Tablet ORAL TWICE DAILY Comments: Last Taken:08/16/17 Time:9:14A.M Insulin Aspart (Novolog) 100 UNIT/ML VIAL Units Inject into fatty tissue 3 TIMES DAILY BEFORE MEALS Comments: Last Taken:08/16/17 Time:12:15P.M [place]-3 Fatty Acids/Fish Oil (Fish Oil 1,000 MG Capsule) 340 MG-1,000 MG CAPSULE 1 Capsule ORAL THREE TIMES DAILY Comments: Last Taken:08/16/17 Time:9:14A.M Difluprednate (Durezol) 0.05 % DROPS 1 Drop Right Eye THREE TIMES DAILY Qty = 5 Comments: NOT GIVEN THIS ADMISSION Insulin Detemir (Levemir) 100 UNIT/ML VIAL 26 Units Inject into fatty tissue Every night Qty = 1 Comments: Last Taken:08/16/17 Time:9:14A.M Amlodipine Besylate (Norvasc) 10 MG TABLET 1 Tablet ORAL DAILY Qty = 30 Instructions: . Comments: Last Taken:08/16/17 Time:9:14A.M Levothyroxine Sodium (Levothyroxine Sodium) 150 MCG TABLET 1 Tablet ORAL DAILY Qty = 30 Instructions: . Comments: Last Taken:08/16/17 Time:7A.M Dulaglutide (Trulicity) 0.75 MG/0.5 ML PEN.INJCTR 0.5 Milligram Inject into fatty tissue EVERY WEDNESDAY Comments: NOT GIVEN THIS ADMISSION Start taking the following new medications: Iron Sucrose Complex (Venofer) 200 MG IRON/10 ML VIAL 200 Milligram INTRAVEN Every other day Qty = 2 No Refills Comments: Last Taken:08/16/17 Time:10:42A.M Apixaban (Eliquis) 2.5 MG TABLET 2.5 Milligram ORAL TWICE DAILY Days = 30 No Refills Comments: Last Taken:08/16/17 Time:9:13A.M Metolazone (Metolazone) 2.5 MG TABLET 1 Tablet ORAL 2 times per week Qty = 30 No Refills Comments: NOT GIVEN THIS ADMISSION Copies To: Rehan GUTIERREZ,Robb Dhaliwal; Sal GUTIERREZ,Jacinta; Smith GUTIERREZ,Marcio Attending MD Review Statement Documenting Attending: Malissa Abarca MD Other Findings: Discharged in stable condition.
--- NOTE | 2017-08-12 10:51 | PN- Nephrology ---
Assessment/Plan Nephrology Assessment: Stage IV CKD - subnephrotic proteinuria - Thought to be multifactorial 2/2 diabetic nephropathy, hypertensive nephrosclerosis, and cardiorenal factors - should also mention that she has an atrophic kidney suggestive of renovascular disease. STEVE on CKD - Presumably 2/2 cardiorenal factors with primarily R sided symptoms and venous congestion. May improve with diuresis. No evidence of urinary obstruction. UA with minimal cells (even with ferguson catheter) or protein c/w aforementioned diagnosis. Anemia - May be 2/2 decreased erythropoetin production from CKD. Iron deficient. Vit B12 and Folate OK. Low retic index. Should get IV Iron. Suggestion: -Would increase lasix to q8 dosing to target at least 2.5L UOP/day -Cont 5mg PO metolazone prior to one of the lasix doses -Start venofer 200mg every other day x5 doses Please call [phone] with ?'s Subjective Subjective: SCr 2.9 [place] 188 - was recorded as both 185 and 191 yesterday 1200cc UOP in ferguson bag - 1050cc thus far today - got metolazone last night prior to dose Started on apixaban for new A fib BP OK Objective Vital Signs and I&Os Vital Signs Date Time Temp Pulse Resp B/P B/P Pulse O2 O2 Flow FiO2 Mean Ox Delivery Rate 08/12 0823 93 08/12 0822 93 Nasal 1.0L Cannula 08/12 0720 98.3 69 18 130/64 93 Nasal Cannula 08/12 0304 66 95 08/12 0008 87 97 08/11 2358 98.6 67 18 138/62 96 Nasal 1.5L Cannula 08/11 2231 69 94 08/11 2119 63 110/70 08/11 2119 63 110/70 08/11 2106 Nasal 2.0L Cannula 08/11 1827 110/70 08/11 1400 97.3 63 18 108/60 97 Nasal 2.0L Cannula Intake & Output 08/12 1600 08/12 0400 08/11 1600 08/11 0400 08/10 1600 08/10 0400 Intake Total 325 250 0 Output Total 500 700 9773 200 Balance -425 -300 -950 -200 Intake, Oral 325 250 0 Output, Urine 515 969 7731 200 Patient 188 lb 185 lb 191 lb Weight Weight Bed scale Measurement Method Physical Exam: Gen - OK appearing HEENT - JVP visible CV - RRR, no m/r/g Chest - L basilar crackles Abd - soft, NTND Ext - +edema Neuro - AOX3, grossly nonfocal Current Medications: Current Medications Sig/Larissa Start time Last Medication Dose Route Stop Time Status Admin Acetaminophen 650 MG ONCE ONE 08/12 0315 DC 08/12 PO 08/12 0316 0300 Albuterol Sulfate 3 ML Q4P PRN 08/11 1045 AC INH Albuterol Sulfate 1 PUF Q4P PRN 08/10 2200 AC INH Amlodipine Besylate 10 MG DAILY 08/11 1000 AC 08/11 PO 1033 Apixaban 2.5 MG BID 08/12 1000 AC PO Aspirin Buffered 81 MG QPM 08/10 2200 AC 08/11 PO 2119 Atorvastatin Calcium 40 MG 1700 08/11 1700 AC 08/11 PO 1827 Budesonide/ 2 PUF BID 08/10 2200 AC 08/11 Formoterol Fumarate INH 2120 Carvedilol 25 MG BID 08/10 2200 AC 08/11 PO 2119 Cholecalciferol 1,000 IU DAILY 08/11 1000 AC 08/11 PO 1033 Doxazosin Mesylate 2 MG BID 08/10 2200 AC 08/11 PO 2119 Duloxetine HCl 60 MG DAILY 08/11 1000 AC 08/11 PO 1033 Ferrous Sulfate 325 MG DAILY 08/11 1000 AC 08/11 PO 1033 Fish Oil 1,050 MG DAILY 08/11 1000 AC 08/11 PO 1033 Furosemide 120 MG BID 08/11 1000 AC 08/11 IV 2241 Heparin Sodium 5,000 UNIT Q8 08/11 0600 DC 08/12 (Porcine) SC 0625 Hydralazine HCl 100 MG TID 08/100 AC 08/11 PO 211 Insulin Aspart 0 TIDAC 08/11 0800 AC 08/11 SC 1827 Insulin Detemir 10 UNITS BID 08/10 2200 AC 08/11 SC 2246 Isosorbide 60 MG DAILY 08/11 1000 AC 08/11 Mononitrate PO 103 Levothyroxine Sodium 0.15 MG 0700 08/11 0700 AC 08/12 PO 0625 Metolazone 5 MG 2130 08/11 2130 AC 08/11 PO 211 Non-Formulary 0 SEE ADMIN CRITERIA 08/10 2129 UNV Medication ANY Nystatin 1 RICARDO TID PRN 08/11 2345 AC TOP Oxycodone/ 1 TAB ONCE ONE 08/13 0715 DC Acetaminophen PO 08/12 0816 Patient Medication 1 ED ONE ONE 08/11 1145 DC Teaching ED 08/11 1146 Phenol 2 SPRAY Q2P PRN 08/12 0830 AC EXT Results Pertinent Lab Results: Laboratory Tests 08/12 08/12 08/11 0638 0115 1810 Chemistry Sodium (137 - 145 mmol/L) 134 L Potassium (3.5 - 5.1 mmol/L) 4.2 Chloride (98 - 107 mmol/L) 99 Carbon Dioxide (22 - 30 mmol/L) 20 L Anion Gap (5 - 16) 16 BUN (7 - 17 mg/dL) 103 *H Creatinine (0.5 - 1.0 mg/dL) 2.9 H Estimated GFR (>60 ml/min) 16 L BUN/Creatinine Ratio (7 - 25 %) 35.5 H Troponin I (< 0.11 ng/ml) < 0.01 Hematology CBC w Diff NO MAN DIFF REQ WBC (4.8 - 10.8 /CUMM) 7.4 RBC (4.20 - 5.40 /CUMM) 2.66 L Hgb (12.0 - 16.0 G/DL) 7.7 L Hct (37 - 47 %) 22.6 L MCV (81.0 - 99.0 FL) 85.1 MCH (27.0 - 31.0 PG) 29.0 MCHC (33.0 - 37.0 G/DL) 34.1 RDW (11.5 - 14.5 %) 13.8 Plt Count (130 - 400 /CUMM) 194 MPV (7.4 - 10.4 FL) 9.8 Gran % (42.2 - 75.2 %) 64.2 Lymphocytes % (20.5 - 51.1 %) 18.9 L Monocytes % (1.7 - 9.3 %) 12.4 H Eosinophils % (0 - 5 %) 3.9 Basophils % (0.0 - 2.0 %) 0.6 Absolute Granulocytes (1.4 - 6.5 /CUMM) 4.8 Absolute Lymphocytes (1.2 - 3.4 /CUMM) 1.4 Absolute Monocytes (0.10 - 0.60 /CUMM) 0.9 H Absolute Eosinophils (0.0 - 0.7 /CUMM) 0.3 Absolute Basophils (0.0 - 0.2 /CUMM) 0 Retic Count (0.5 - 2.0 %) 2.53 H Urines Ur Random Creatinine (mg/dL) 67.8 U Random Total Protein (0 - 12 mg/dL) 83 H 08/11 08/11 08/11 1810 0705 0203 Chemistry Sodium (137 - 145 mmol/L) 134 L Potassium (3.5 - 5.1 mmol/L) 4.0 Chloride (98 - 107 mmol/L) 99 Carbon Dioxide (22 - 30 mmol/L) 20 L Anion Gap (5 - 16) 16 BUN (7 - 17 mg/dL) 97 H Creatinine (0.5 - 1.0 mg/dL) 3.1 H Estimated GFR (>60 ml/min) 15 L BUN/Creatinine Ratio (7 - 25 %) 31.3 H Iron (37 - 170 ug/dL) 35 L TIBC (265 - 497 ug/dL) 331 Ferritin (11.1 - 264 ng/mL) 39.1 Troponin I (< 0.11 ng/ml) < 0.01 < 0.01 Vitamin B12 (239 - 931 pg/mL) 652 Folate (2.76 - 20.0 ng/mL) 14.0 Urines Urinalysis LIGHT H Urine Color (YEL,AMB,STR) YEL Urine Clarity (CLEAR) HAZY H Urine pH (5.0 - 8.0) 6.0 Ur Specific [place] (1.001 - 1.035) 1.020 Urine Protein (NEG,<30 MG/DL) 30 H Urine Ketones (NEG) NEG Urine Nitrite (NEG) NEG Urine Bilirubin (NEG) NEG Urine Urobilinogen (0.1 - 1.0 EU/dl) 0.2 Ur Leukocyte Esterase (NEG) TRACE H Ur Microscopic SEDIMENT EXAMINED Urine RBC (0 - 5 /HPF) 5-10 H Urine WBC (0 - 2 /HPF) 3-5 H Ur Epithelial Cells (NONE,FEW) FEW Urine Bacteria (NEG/NONE) FEW H Hyaline Casts (0/LPF) 5-10 H Urine Mucus (FEW,NONE) FEW Urine Hemoglobin (NEG) TRACE-INTACT Urine Glucose (N MG/DL) NEG 08/10 08/10 1745 1618 Chemistry Sodium (137 - 145 mmol/L) 134 L Potassium (3.5 - 5.1 mmol/L) 4.2 Chloride (98 - 107 mmol/L) 97 L Carbon Dioxide (22 - 30 mmol/L) 21 L Anion Gap (5 - 16) 16 BUN (7 - 17 mg/dL) 96 H Creatinine (0.5 - 1.0 mg/dL) 3.1 H Estimated GFR (>60 ml/min) 15 L BUN/Creatinine Ratio (7 - 25 %) 31.0 H Glucose (65 - 99 mg/dL) 129 H Calcium (8.4 - 10.2 mg/dL) 8.8 Iron (37 - 170 ug/dL) 30 L TIBC (265 - 497 ug/dL) 347 Ferritin (11.1 - 264 ng/mL) 39.8 Total Bilirubin (0.2 - 1.3 mg/dL) 0.5 AST (14 - 36 U/L) 8 L ALT (9 - 52 U/L) 25 Alkaline Phosphatase (<127 U/L) 62 Troponin I (< 0.11 ng/ml) < 0.01 Cancelled [id number] Pept (<125 pg/mL) 8210 H Cancelled Total Protein (6.3 - 8.2 g/dL) 6.3 Albumin (3.5 - 5.0 g/dL) 3.7 Globulin (1.9 - 4.2 gm/dL) 2.6 Albumin/Globulin Ratio (1.1 - 2.2 %) 1.4 Vitamin B12 (239 - 931 pg/mL) 703 Free T4 (0.78 - 2.44 ng/dL) 1.57 Total T3 (0.97 - 1.69 ng/mL) 0.82 L TSH &T3 &Free T4 Intrp (0.270 - 4.20 uIU/mL) 12.400 H 03/06 1600 Hematology CBC w Diff NO MAN DIFF REQ WBC (4.8 - 10.8 /CUMM) 12.1 H RBC (4.20 - 5.40 /CUMM) 3.02 L Hgb (12.0 - 16.0 G/DL) 8.6 L Hct (37 - 47 %) 26.1 L MCV (81.0 - 99.0 FL) 86.3 MCH (27.0 - 31.0 PG) 28.5 MCHC (33.0 - 37.0 G/DL) 33.0 RDW (11.5 - 14.5 %) 13.9 Plt Count (130 - 400 /CUMM) 213 MPV (7.4 - 10.4 FL) 10.5 H Gran % (42.2 - 75.2 %) 64.2 Lymphocytes % (20.5 - 51.1 %) 19.8 L Monocytes % (1.7 - 9.3 %) 8.7 Eosinophils % (0 - 5 %) 6.3 H Basophils % (0.0 - 2.0 %) 1.0 Absolute Granulocytes (1.4 - 6.5 /CUMM) 7.0 H Absolute Lymphocytes (1.2 - 3.4 /CUMM) 2.2 Absolute Monocytes (0.10 - 0.60 /CUMM) 1.0 H Absolute Eosinophils (0.0 - 0.7 /CUMM) 0.7 Absolute Basophils (0.0 - 0.2 /CUMM) 0.1 Imaging/Other Studies: EXAM TYPE: US - US-RENAL/KIDNEY EXAMINATION: US RETROPERITONEAL COMPLETE (RENAL) CLINICAL INFORMATION: Worsening kidney function. Evaluate for obstruction.. COMPARISON: Renal ultrasound 09/15/2016 TECHNIQUE: Real-time imaging of the kidneys and bladder. Examination limited secondary to patient body habitus. FINDINGS: RIGHT KIDNEY: 7.9 x 3.2 x 2.9 cm (SAG x AP x TRV). Diffuse mild cortical thinning. No calculi or focal parenchymal lesions. No hydronephrosis. LEFT KIDNEY: 10.9 x 5.7 x 5.6 cm (SAG x AP x TRV). The kidney is normal in size, contour, and echogenicity. Renal cortical thickness is normal. No calculi or focal parenchymal lesions. No hydronephrosis. BLADDER: The bladder is collapsed around a Ferguson catheter and therefore cannot be evaluated. IMPRESSION: Similar appearance of atrophic right kidney. No renal calculi or hydronephrosis bilaterally. The bladder is collapsed around a Ferguson catheter and cannot be evaluated.
[2017-08-12 15:08] VITALS: BP 140/68
[2017-08-12 16:13] LABS: ABSOLUTE BASOPHIL COUNT 0 /CUMM (0.0-0.2); ABSOLUTE EOSINOPHIL COUNT 0.3 /CUMM (0.0-0.7); ABSOLUTE GRANULOCYTE CT 5.5 /CUMM (1.4-6.5); ABSOLUTE LYMPH COUNT 1.3 /CUMM (1.2-3.4); ABSOLUTE MONOCYTE COUNT 0.9 /CUMM (0.10-0.60); BASOPHIL % 0.6 % (0.0-2.0); EOSINOPHIL % 3.3 % (0-5); GRANULOCYTE % 68.8 % (42.2-75.2); HEMATOCRIT 24.3 % (37-47); MEAN CORPUSCULAR HGB 28.6 PG (27.0-31.0); MEAN CORPUSCULAR HGB CONC 33.3 G/DL (33.0-37.0); MEAN CORPUSCULAR VOLUME 85.8 FL (81.0-99.0); MEAN PLATELET VOLUME 9.6 FL (7.4-10.4); PLATELET COUNT 196 /CUMM (130-400); RBC DISTRIBUTION WIDTH 13.6 % (11.5-14.5); RED BLOOD CELL CT 2.84 /CUMM (4.20-5.40)
[2017-08-12 23:10] VITALS: BP 138/62
[2017-08-13 06:20] VITALS: BP 157/70
--- NOTE | 2017-08-13 07:46 | PN- Cardiology ---
Subjective Subjective: Feels better, no SOB, edema improved Objective Vital Signs and I&Os Vital Signs Date Time Temp Pulse Resp B/P B/P Pulse O2 O2 Flow FiO2 Mean Ox Delivery Rate 08/13 0620 98.1 111 20 157/70 94 08/13 0304 65 92 / 2310 98.5 113 18 138/62 92 Nasal Cannula 08/12 2230 106 140/60 08/12 2228 97.8 140/60 08/12 2106 106 98 08/12 2105 94 Nasal 1.0L Cannula 08/12 1752 65 140/60 08/12 1600 Nasal 2.0L Cannula 08/12 1508 97.8 96 20 140/68 98 Nasal 5.0L Cannula 08/12 1117 134/78 08/12 1117 134/78 08/12 1117 134/78 08/12 1117 130/64 08/12 0823 93 08/12 0822 93 Nasal 1.0L Cannula 08/12 0800 95 Nasal 2.0L Cannula Intake & Output 08/13 0800 / 0000 /08 1600 08/12 0800 08/12 0000 08/11 1600 Intake Total 300 500 325 Output Total 1100 1050 450 Balance -800 500 -725 -450 Intake, IV 100 Intake, Oral 300 400 325 Output, Urine 1100 1050 450 Patient 185 lb 188 lb Weight Physical Exam: HEENT-PERRLA Neck-JVP normal, no bruits Lungs-clear bilaterally Heart-S1S2 irregular abdomen-soft, not tender, BS+, no organomegaly Extr-improved edema, 2+ pulses Neuro-non focal Assessment/Plan Assessment/Plan 1. PAF - remained in sinus but developed controlled AF today am, SAS may have trigerred but she used CPAP. continue Eliquis 2.5 mg bid monitor blood count 2. HFpEF-clinically improved 3 ARFon CRI-renal function pending today, creat improved yesterday, but BUN increased 4. HTN-now improved 5. CAD-stable, no ekg replarization changes, no angina Plan: continue Lasix 120 mg iv tid today with metolazonex1 will likely change to oral lasix tomorrow check renal function, electrolytes Keep K+ 4.0-5.0 continue low dose aspirin keep on tely keep of ARB until renal function stable Continue telemetry? Yes
[2017-08-13 08:12] LABS: ABSOLUTE BASOPHIL COUNT 0 /CUMM (0.0-0.2); ABSOLUTE EOSINOPHIL COUNT 0.4 /CUMM (0.0-0.7); ABSOLUTE GRANULOCYTE CT 4.3 /CUMM (1.4-6.5); ABSOLUTE LYMPH COUNT 1.3 /CUMM (1.2-3.4); ABSOLUTE MONOCYTE COUNT 0.8 /CUMM (0.10-0.60); BASOPHIL % 0.7 % (0.0-2.0); EOSINOPHIL % 5.2 % (0-5); GRANULOCYTE % 63.1 % (42.2-75.2); MEAN CORPUSCULAR HGB 28.3 PG (27.0-31.0); MEAN CORPUSCULAR HGB CONC 33.1 G/DL (33.0-37.0); MEAN CORPUSCULAR VOLUME 85.3 FL (81.0-99.0); MEAN PLATELET VOLUME 9.3 FL (7.4-10.4); PLATELET COUNT 211 /CUMM (130-400); RBC DISTRIBUTION WIDTH 13.9 % (11.5-14.5); RED BLOOD CELL CT 2.82 /CUMM (4.20-5.40); WHITE BLOOD CELL COUNT 6.8 /CUMM (4.8-10.8)
--- NOTE | 2017-08-13 08:25 | PN- Housestaff ---
Jean Mc 08/13/17 0816: Subjective Follow-up For: CHF exacerbation. New onset atrial fibrillation. Tele-Events Since Last Visit: Atrial fibrillation overnight, rate 110. Subjective: On CPAP. States her breathing is much more improved. She is making urine. No more earache. No fevers or chills overnight. Review of Systems Constitutional: Reports: see HPI. Objective Last 24 Hrs of Vital Signs/I&O Vital Signs Date Time Temp Pulse Resp B/P B/P Pulse O2 O2 Flow FiO2 Mean Ox Delivery Rate 08/13 0620 98.1 111 20 157/70 94 08/13 0304 65 92 / 0000 CPAP 08/12 2310 98.5 113 18 138/62 92 Nasal Cannula 08/12 2230 106 140/60 08/12 2228 97.8 140/60 08/12 2106 106 98 08/12 2105 94 Nasal 1.0L Cannula 08/12 1752 65 140/60 08 1600 Nasal 2.0L Cannula 08/12 1508 97.8 96 20 140/68 98 Nasal 5.0L Cannula 08/12 1117 134/78 /08 1117 134/78 08 1117 134/78 08 1117 130/64 /08 0823 93 /08 0822 93 Nasal 1.0L Cannula Intake & Output 08/13 1600 08/13 0800 08/13 0000 Intake Total 300 Output Total 1100 Balance -800 Intake, Oral 300 Output, Urine 1100 Patient 185 lb Weight Physical Exam General Appearance: Alert, Oriented X3, Cooperative Cardiovascular: Regular Rate, Normal S1, Normal S2 Lungs: Clear to Auscultation, mild bibasilar rales. Abdomen: Normal Bowel Sounds, Soft, No Tenderness Extremities: No Clubbing, No Cyanosis, significant improvement in edema. Trace edema now. Current Medications: Current Medications Sig/Larissa Start time Last Medication Dose Route Stop Time Status Admin Albuterol Sulfate 3 ML Q4P PRN 08/11 1045 AC INH Albuterol Sulfate 1 PUF Q4P PRN 08/10 220 AC INH Amlodipine Besylate 10 MG DAILY 08/11 1000 AC 08/12 PO 1117 Apixaban 2.5 MG BID 08/12 1000 AC 08/12 PO 222 Aspirin Buffered 81 MG QPM 08/10 2199 AC 08/12 PO 2227 Atorvastatin Calcium 40 MG 1700 08/11 1700 AC 08/12 PO 1752 Budesonide/ 2 PUF BID 08/10 2200 AC 08/12 Formoterol Fumarate INH 2225 Carvedilol 25 MG BID 08/10 2200 AC 08/12 PO 2230 Cholecalciferol 1,000 IU DAILY 08/11 1000 AC 08/12 PO 1117 Doxazosin Mesylate 2 MG BID 08/10 2200 AC 08/12 PO 2227 Duloxetine HCl 60 MG DAILY 08/11 1000 AC 08/12 PO 1117 Ferrous Sulfate 325 MG DAILY 08/11 1000 AC 08/12 PO 1117 Fish Oil 1,050 MG DAILY 08/11 1000 AC 08/12 PO 1117 Furosemide 120 MG Q8H 08/12 1800 AC 08/13 IV 0242 Furosemide 120 MG BID 08/11 1000 DC 08/12 IV 1116 Heparin Sodium 5,000 UNIT Q8 08/11 0600 DC 08/12 (Porcine) SC 0625 Hydralazine HCl 100 MG TID 08/10 2200 AC 08/12 PO 2228 Insulin Aspart 0 TIDAC 08/11 0800 AC 08/12 SC 1753 Insulin Detemir 10 UNITS BID 08/10 2200 AC 08/12 SC 2226 Iron Sucrose 200 MG Q48H 08/12 1200 AC 08/12 Sodium Chloride 100 ML IV 08/20 1214 1413 Isosorbide 60 MG DAILY 08/11 1000 AC 08/12 Mononitrate PO 1117 Levothyroxine Sodium 0.15 MG 0700 08/11 0700 AC 08/13 PO 0621 Metolazone 5 MG 2130 08/11 2130 AC 08/12 PO 1806 Non-Formulary 0 SEE ADMIN CRITERIA 08/12 1100 CAN Medication ANY Nystatin 1 RICARDO TID PRN 08/11 2345 AC TOP Patient Medication 1 ED ONE ONE 08/12 1630 DC Teaching ED 08/12 1631 Phenol 2 SPRAY Q2P PRN 08/12 0830 AC EXT Last 24 Hrs of Lab/Jose Alejandro Results Last 24 Hrs of Labs/Mics: Laboratory Tests 08/13/17 0640: Sodium Pending, Potassium Pending, Chloride Pending, Carbon Dioxide Pending, Anion Gap Pending, BUN Pending, Creatinine Pending, BUN/Creatinine Ratio Pending , CBC w Diff Pending, WBC Pending, RBC Pending, Hgb Pending, Hct Pending, MCV Pending, MCH Pending, MCHC Pending, RDW Pending, Plt Count Pending, MPV Pending 08/12/17 1445: CBC w Diff NO MAN DIFF REQ, RBC 2.84 L, MCV 85.8, MCH 28.6, MCHC 33.3, RDW 13.6 , MPV 9.6, Gran % 68.8, Lymphocytes % 16.4 L, Monocytes % 10.9 H, Eosinophils % 3.3, Basophils % 0.6, Absolute Granulocytes 5.5, Absolute Lymphocytes 1.3, Absolute Monocytes 0.9 H, Absolute Eosinophils 0.3, Absolute Basophils 0 Assessment/Plan Assessment: 71-year-old woman with extensive cardiac history with frequent recent CHF exacerbations, recent nonrespondence 2 weekly Lasix infusion, increased Bumex dose, with subsequent 15 pound weight gain in last 1 week, warranting telemetry admission for CHF exacerbation. 1. Acute on chronic CHF exacerbation. ACS ruled out. Weight same. Negative balance in the past 24 hours. On high-dose Lasix, 120 mg 3 times a day. Metolazone added yesterday, to be continued for 1 more dose. Continue Daily weights. Monitor BUN/creatinine. Labs pending. We will aim for potassium 4-5. 2. New onset A. Fib. Faster heart rates noted overnight 96-111. We will continue to monitor. On Coreg 25 mg BID. Anticoagulation with Eliquis 2.5 mg twice a day. 3. Acute kidney injury, history of CKD. Likely a result of decreased cardiac output and resultant decreased renal perfusion. Obstruction ruled out. Continue aggressive diuresis. 4. Diabetes. Sugars well controlled on Levemir 10 mg twice a day and insulin sliding scale. 5. Hypertension. Fairly well controlled, one reading of systolic greater than 150 noted this morning. Continue amlodipine, Imdur, hydralazine, Coreg and Cardura. 6. History of CAD. Continue aspirin and statin. 7. Hypothyroidism. TSH has trended down since July 2017. Dose has been increased from 0.125 to 0.15 daily. Outpatient follow-up with endocrinology. Continue other meds. Full code. CHF diet. Heparin for DVT prophylaxis. Problem List: 1. CHF (congestive heart failure) Pain Ratin Pain Location: Ear Pain Goal: Remain pain free Pain Plan: PRN Tomorrow's Labs & Rationales: On high dose Lasix. CBC not needed. Rima GUTIERREZ,Erasmoledatana 08/13/17 1226: Attending MD Review Statement Attending Statement Attending MD Statement: examined this patient, discuss w/resident/PA/CUT OFF [employer]WYER [employer]INGLE [employer]ILL, agreed w/resident/PA/CUT OFF SAWYER SHINGLE MILL, reviewed EMR data (avail), discussed with nursing, discussed with case mgmt, amended to note Attending Assessment/Plan: Patient seen and examined. Resting comfortably not in any acute distress. Overnight reported by nursing staff. She went briefly back patient was sedated but is now sinus rhythm. She reports feeling better this morning. Denies shortness of breath at rest or with exertion. She is maintaining saturation at 95% on 1 L of oxygen. She is diuresing appropriately with a urine output of 2.9 L yesterday and a negative fluid balance of 1800 cc. On examination she is not in any respiratory distress. Heart sounds are regular. Lungs are clear to auscultation bilaterally. Peripheral edema has improved. Problems: 1. Acute on chronic heart failure with preserved ejection fraction. 2. New onset atrial fibrillation 3. Acute on chronic kidney disease.; Likely related to cardiorenal syndrome 4. Insulin-dependent diabetes mellitus 5. Hypertension 6. Coronary artery disease 7. Hypothyroidism; TSH level is improving following dose adjustment in the outpatient setting. 8. Anemia of chronic disease Recommendations: -Continue current diuretic regimen. Continue to monitor daily weights and input output. Monitor renal function closely. Follow-up with the nephrology service regarding adjustment of dose. -Patient was started on iron infusion yesterday. Nephrology service is recommending several doses of iron prior to initiating erythropoietin in the outpatient setting. Scheduled for a second dose tomorrow and the third dose on Wednesday. - discontinue Tovar catheter. -Mobilize patient as tolerated. -Anticipate discharge Wednesday following adequate diuresis and iron infusion therapy.
[2017-08-13] MEDS ORDERED: VENOFER200 MG/10 IV (10:42)
[2017-08-13] MEDS ORDERED: ELIQUIS2.5 M1 PO (10:45)
--- NOTE | 2017-08-13 10:50 | Patient Discharge Instructions ---
Discharge Instructions General Discharge Information You were seen/treated for: CHF exacerbation. Watch for these problems: Worsening shortness of breath. Worsening peripheral edema. Chest pain. Fast heart rates. Palpitations. Lightheadedness, dizziness. Special Instructions: Please follow-up with the CHF clinic as advised. Please follow-up with fixed route operator as an outpatient. Please follow-up with primary care physician as an outpatient. Please follow-up with program counselor as an outpatient. Diet Continue normal diet: No Recommended Diet: CHF diet Activity Full Activity/No Limits: Yes Acute Coronary Syndrome Inclusion Criteria At DC or during hospital stay patient has or had the following: ACS DIAGNOSIS No Discharge Core Measures Meds if any: Prescribed or Continued at Discharge Meds if any: NOT Prescribed or Continued at Discharge Congestive Heart Failure Inclusion Criteria At DC or during hospital stay patient has or had the following: CHF DIAGNOSIS No Discharge Core Measures Meds if any: Prescribed or Continued at Discharge Meds if any: NOT Prescribed or Continued at Discharge Cerebrovascular accident Inclusion Criteria At DC or during hospital stay patient has or had the following: CVA/TIA Diagnosis No Discharge Core Measures Meds if any: Prescribed or Continued at Discharge Meds if any: NOT Prescribed or Continued at Discharge Venous thromboembolism Inclusion Criteria VTE Diagnosis No VTE Type NONE VTE Confirmed by (Test) NONE Discharge Core Measures - Per Current guidelines, there needs to be overlap - treatment for the first 5 days of Warfarin therapy. - If discharged on Warfarin prior to 5 days of - overlap therapy, the patient will need to be - assessed for post discharge needs including - *Post discharge parental anticoagulation - *Warfarin and/or parental anticoagulation education - *Follow up date to check INR post discharge At least 5 days overlap therapy as Inpatient No Meds if any: Prescribed or Continued at Discharge Note: Overlap Therapy is Warfarin and Anticoagulant Meds if any: NOT Prescribed or Continued at Discharge
--- NOTE | 2017-08-13 10:52 | PN- Nephrology ---
Assessment/Plan Nephrology Assessment: Stage IV CKD - subnephrotic proteinuria - Thought to be multifactorial 2/2 diabetic nephropathy, hypertensive nephrosclerosis, and cardiorenal factors - should also mention that she has an atrophic kidney suggestive of renovascular disease. STEVE on CKD - Presumably 2/2 cardiorenal factors with primarily R sided symptoms and venous congestion. Improving with diuresis and time. No evidence of urinary obstruction. UA with minimal cells (even with ferguson catheter) or protein c/w aforementioned diagnosis. Anemia - May be 2/2 decreased erythropoetin production from CKD. Iron deficient. Vit B12 and Folate OK. Low retic index. Started on IV Iron. Suggestion: -Cont current diuretics - anticipate being able to switch back to home PO regimen tomorrow (especially if SCr goes up) -Counseled patient re: weighing herself at home and the need to titrate diuretics based on weights -Cont venofer 200mg every other day x5 doses total -Would dose 20,000U Epogen subq prior to discharge (ideally after she's gotten multiple IV iron doses) - will likely need to get set up for monthly Epogen as well as to finish up her course of IV iron Please call [phone] with ?'s Subjective Subjective: SCr down to 2.7 2950cc UOP on 120mg IV lasix increased to q8 dosing - 5mg PO metolazone as well Started on iron sucrose Feels tired but breathing OK - seen laying flat - ferguson in place Objective Vital Signs and I&Os Vital Signs Date Time Temp Pulse Resp B/P B/P Pulse O2 O2 Flow FiO2 Mean Ox Delivery Rate 08/13 1032 95 Nasal 1.0L Cannula 08/13 0906 111 157/70 08/13 0906 111 157/70 08/13 0904 111 157/70 08/13 0620 98.1 111 20 157/70 94 08/13 0304 65 92 /09 0000 CPAP 08/12 2310 98.5 113 18 138/62 92 Nasal Cannula 08/12 2230 106 140/60 08/12 2228 97.8 140/60 08/12 2106 106 98 08/12 2105 94 Nasal 1.0L Cannula 08/12 1752 65 140/60 08 1600 Nasal 2.0L Cannula 08/12 1508 97.8 96 20 140/68 98 Nasal 5.0L Cannula 08/12 1117 134/78 08/12 1117 134/78 08/12 1117 134/78 08/12 1117 130/64 Intake & Output 08/13 1600 08/13 0400 08/12 1600 08/12 0400 08/11 1600 08/11 0400 Intake Total 300 825 250 0 Output Total 1050 1100 8222 408 6315 200 Balance -1050 -800 -725 -300 -950 -200 Intake, IV 100 Intake, Oral 300 725 250 0 Output, Urine 1050 1100 2937 982 1894 200 Patient 185 lb 188 lb 185 lb Weight Weight Bed scale Measurement Method Physical Exam: Gen - OK appearing HEENT - JVP not visible CV - RRR, no m/r/g Chest - scant basilar crackles Abd - soft, NTND Ext - edema much improved Neuro - AOX3, grossly nonfocal Current Medications: Current Medications Sig/Larissa Start time Last Medication Dose Route Stop Time Status Admin Albuterol Sulfate 3 ML Q4P PRN 08/11 1045 AC INH Albuterol Sulfate 1 PUF Q4P PRN 08/10 2200 AC INH Amlodipine Besylate 10 MG DAILY 08/11 1000 AC 08/13 PO 0906 Apixaban 2.5 MG BID 08/12 1000 AC 08/13 PO 0906 Aspirin Buffered 81 MG QPM 08/10 2200 AC 08/12 PO 2227 Atorvastatin Calcium 40 MG 1700 08/11 1700 AC 08/12 PO 1752 Budesonide/ 2 PUF BID 08/10 2200 AC 08/13 Formoterol Fumarate INH 0910 Carvedilol 25 MG BID 08/10 2200 AC 08/13 PO 09 Cholecalciferol 1,000 IU DAILY 08/11 1000 AC 08/13 PO 0904 Doxazosin Mesylate 2 MG BID 08/10 2200 AC 08/13 PO 0906 Duloxetine HCl 60 MG DAILY 08/11 1000 AC 08/13 PO 0905 Ferrous Sulfate 325 MG DAILY 08/11 1000 AC 08/13 PO 0905 Fish Oil 1,050 MG DAILY 08/11 1000 AC 08/13 PO 0907 Furosemide 120 MG Q8H 08/12 1800 AC 08/13 IV 0910 Furosemide 120 MG BID 08/11 1000 DC 08/12 IV 1116 Hydralazine HCl 100 MG TID 08/10 2200 AC 08/13 PO 0905 Insulin Aspart 0 TIDAC 08/11 0800 AC 08/12 SC 1753 Insulin Detemir 10 UNITS BID 08/10 2200 AC 08/13 SC 0909 Iron Sucrose 200 MG Q48H 08/12 1200 AC 08/12 Sodium Chloride 100 ML IV 08/20 1214 1413 Isosorbide 60 MG DAILY 08/11 1000 AC 08/13 Mononitrate PO 0904 Levothyroxine Sodium 0.15 MG 0708/11 0700 AC 08/13 PO 0621 Metolazone 5 MG 2130 08/11 2130 r 08/12 PO 08/14 0000 1806 Non-Formulary 0 SEE ADMIN CRITERIA 08/12 1100 CAN Medication ANY Nystatin 1 RICARDO TID PRN 08/11 2345 AC TOP Patient Medication 1 ED ONE ONE 08/12 1630 DC Teaching ED 08/12 1631 Phenol 2 SPRAY Q2P PRN 08/12 0830 AC EXT Results Pertinent Lab Results: Laboratory Tests 08/13 08/12 0640 1445 Chemistry Sodium (137 - 145 mmol/L) 137 Potassium (3.5 - 5.1 mmol/L) 4.2 Chloride (98 - 107 mmol/L) 97 L Carbon Dioxide (22 - 30 mmol/L) 23 Anion Gap (5 - 16) 17 H BUN (7 - 17 mg/dL) 100 H Creatinine (0.5 - 1.0 mg/dL) 2.7 H Estimated GFR (>60 ml/min) 17 L BUN/Creatinine Ratio (7 - 25 %) 37.0 H Hematology CBC w Diff NO MAN DIFF REQ NO MAN DIFF REQ WBC (4.8 - 10.8 /CUMM) 6.8 8.0 RBC (4.20 - 5.40 /CUMM) 2.82 L 2.84 L Hgb (12.0 - 16.0 G/DL) 8.0 L 8.1 L Hct (37 - 47 %) 24.0 L 24.3 L MCV (81.0 - 99.0 FL) 85.3 85.8 MCH (27.0 - 31.0 PG) 28.3 28.6 MCHC (33.0 - 37.0 G/DL) 33.1 33.3 RDW (11.5 - 14.5 %) 13.9 13.6 Plt Count (130 - 400 /CUMM) 211 196 MPV (7.4 - 10.4 FL) 9.3 9.6 Gran % (42.2 - 75.2 %) 63.1 68.8 Lymphocytes % (20.5 - 51.1 %) 18.6 L 16.4 L Monocytes % (1.7 - 9.3 %) 12.4 H 10.9 H Eosinophils % (0 - 5 %) 5.2 H 3.3 Basophils % (0.0 - 2.0 %) 0.7 0.6 Absolute Granulocytes (1.4 - 6.5 /CUMM) 4.3 5.5 Absolute Lymphocytes (1.2 - 3.4 /CUMM) 1.3 1.3 Absolute Monocytes (0.10 - 0.60 /CUMM) 0.8 H 0.9 H Absolute Eosinophils (0.0 - 0.7 /CUMM) 0.4 0.3 Absolute Basophils (0.0 - 0.2 /CUMM) 0 0 03/08 03/08 03/07 0638 0115 1810 Chemistry Sodium (137 - 145 mmol/L) 134 L Potassium (3.5 - 5.1 mmol/L) 4.2 Chloride (98 - 107 mmol/L) 99 Carbon Dioxide (22 - 30 mmol/L) 20 L Anion Gap (5 - 16) 16 BUN (7 - 17 mg/dL) 103 *H Creatinine (0.5 - 1.0 mg/dL) 2.9 H Estimated GFR (>60 ml/min) 16 L BUN/Creatinine Ratio (7 - 25 %) 35.5 H Troponin I (< 0.11 ng/ml) < 0.01 Hematology CBC w Diff NO MAN DIFF REQ WBC (4.8 - 10.8 /CUMM) 7.4 RBC (4.20 - 5.40 /CUMM) 2.66 L Hgb (12.0 - 16.0 G/DL) 7.7 L Hct (37 - 47 %) 22.6 L MCV (81.0 - 99.0 FL) 85.1 MCH (27.0 - 31.0 PG) 29.0 MCHC (33.0 - 37.0 G/DL) 34.1 RDW (11.5 - 14.5 %) 13.8 Plt Count (130 - 400 /CUMM) 194 MPV (7.4 - 10.4 FL) 9.8 Gran % (42.2 - 75.2 %) 64.2 Lymphocytes % (20.5 - 51.1 %) 18.9 L Monocytes % (1.7 - 9.3 %) 12.4 H Eosinophils % (0 - 5 %) 3.9 Basophils % (0.0 - 2.0 %) 0.6 Absolute Granulocytes (1.4 - 6.5 /CUMM) 4.8 Absolute Lymphocytes (1.2 - 3.4 /CUMM) 1.4 Absolute Monocytes (0.10 - 0.60 /CUMM) 0.9 H Absolute Eosinophils (0.0 - 0.7 /CUMM) 0.3 Absolute Basophils (0.0 - 0.2 /CUMM) 0 Retic Count (0.5 - 2.0 %) 2.53 H Urines Ur Random Creatinine (mg/dL) 67.8 U Random Total Protein (0 - 12 mg/dL) 83 H 03/07 03/07 03/ 1810 0705 0203 Chemistry Sodium (137 - 145 mmol/L) 134 L Potassium (3.5 - 5.1 mmol/L) 4.0 Chloride (98 - 107 mmol/L) 99 Carbon Dioxide (22 - 30 mmol/L) 20 L Anion Gap (5 - 16) 16 BUN (7 - 17 mg/dL) 97 H Creatinine (0.5 - 1.0 mg/dL) 3.1 H Estimated GFR (>60 ml/min) 15 L BUN/Creatinine Ratio (7 - 25 %) 31.3 H Iron (37 - 170 ug/dL) 35 L TIBC (265 - 497 ug/dL) 331 Ferritin (11.1 - 264 ng/mL) 39.1 Troponin I (< 0.11 ng/ml) < 0.01 < 0.01 Vitamin B12 (239 - 931 pg/mL) 652 Folate (2.76 - 20.0 ng/mL) 14.0 Urines Urinalysis LIGHT H Urine Color (YEL,AMB,STR) YEL Urine Clarity (CLEAR) HAZY H Urine pH (5.0 - 8.0) 6.0 Ur Specific [place] (1.001 - 1.035) 1.020 Urine Protein (NEG,<30 MG/DL) 30 H Urine Ketones (NEG) NEG Urine Nitrite (NEG) NEG Urine Bilirubin (NEG) NEG Urine Urobilinogen (0.1 - 1.0 EU/dl) 0.2 Ur Leukocyte Esterase (NEG) TRACE H Ur Microscopic SEDIMENT EXAMINED Urine RBC (0 - 5 /HPF) 5-10 H Urine WBC (0 - 2 /HPF) 3-5 H Ur Epithelial Cells (NONE,FEW) FEW Urine Bacteria (NEG/NONE) FEW H Hyaline Casts (0/LPF) 5-10 H Urine Mucus (FEW,NONE) FEW Urine Hemoglobin (NEG) TRACE-INTACT Urine Glucose (N MG/DL) NEG 08/10 08/10 1745 1618 Chemistry Sodium (137 - 145 mmol/L) 134 L Potassium (3.5 - 5.1 mmol/L) 4.2 Chloride (98 - 107 mmol/L) 97 L Carbon Dioxide (22 - 30 mmol/L) 21 L Anion Gap (5 - 16) 16 BUN (7 - 17 mg/dL) 96 H Creatinine (0.5 - 1.0 mg/dL) 3.1 H Estimated GFR (>60 ml/min) 15 L BUN/Creatinine Ratio (7 - 25 %) 31.0 H Glucose (65 - 99 mg/dL) 129 H Calcium (8.4 - 10.2 mg/dL) 8.8 Iron (37 - 170 ug/dL) 30 L TIBC (265 - 497 ug/dL) 347 Ferritin (11.1 - 264 ng/mL) 39.8 Total Bilirubin (0.2 - 1.3 mg/dL) 0.5 AST (14 - 36 U/L) 8 L ALT (9 - 52 U/L) 25 Alkaline Phosphatase (<127 U/L) 62 Troponin I (< 0.11 ng/ml) < 0.01 Cancelled Cjc-G-Scwxorlcnve Pept (<125 pg/mL) 8210 H Cancelled Total Protein (6.3 - 8.2 g/dL) 6.3 Albumin (3.5 - 5.0 g/dL) 3.7 Globulin (1.9 - 4.2 gm/dL) 2.6 Albumin/Globulin Ratio (1.1 - 2.2 %) 1.4 Vitamin B12 (239 - 931 pg/mL) 703 Free T4 (0.78 - 2.44 ng/dL) 1.57 Total T3 (0.97 - 1.69 ng/mL) 0.82 L TSH &T3 &Free T4 Intrp (0.270 - 4.20 uIU/mL) 12.400 H 03/06 1600 Hematology CBC w Diff NO MAN DIFF REQ WBC (4.8 - 10.8 /CUMM) 12.1 H RBC (4.20 - 5.40 /CUMM) 3.02 L Hgb (12.0 - 16.0 G/DL) 8.6 L Hct (37 - 47 %) 26.1 L MCV (81.0 - 99.0 FL) 86.3 MCH (27.0 - 31.0 PG) 28.5 MCHC (33.0 - 37.0 G/DL) 33.0 RDW (11.5 - 14.5 %) 13.9 Plt Count (130 - 400 /CUMM) 213 MPV (7.4 - 10.4 FL) 10.5 H Gran % (42.2 - 75.2 %) 64.2 Lymphocytes % (20.5 - 51.1 %) 19.8 L Monocytes % (1.7 - 9.3 %) 8.7 Eosinophils % (0 - 5 %) 6.3 H Basophils % (0.0 - 2.0 %) 1.0 Absolute Granulocytes (1.4 - 6.5 /CUMM) 7.0 H Absolute Lymphocytes (1.2 - 3.4 /CUMM) 2.2 Absolute Monocytes (0.10 - 0.60 /CUMM) 1.0 H Absolute Eosinophils (0.0 - 0.7 /CUMM) 0.7 Absolute Basophils (0.0 - 0.2 /CUMM) 0.1 Imaging/Other Studies: EXAM TYPE: US - US-RENAL/KIDNEY EXAMINATION: US RETROPERITONEAL COMPLETE (RENAL) CLINICAL INFORMATION: Worsening kidney function. Evaluate for obstruction.. COMPARISON: Renal ultrasound 09/15/2016 TECHNIQUE: Real-time imaging of the kidneys and bladder. Examination limited secondary to patient body habitus. FINDINGS: RIGHT KIDNEY: 7.9 x 3.2 x 2.9 cm (SAG x AP x TRV). Diffuse mild cortical thinning. No calculi or focal parenchymal lesions. No hydronephrosis. LEFT KIDNEY: 10.9 x 5.7 x 5.6 cm (SAG x AP x TRV). The kidney is normal in size, contour, and echogenicity. Renal cortical thickness is normal. No calculi or focal parenchymal lesions. No hydronephrosis. BLADDER: The bladder is collapsed around a Ferguson catheter and therefore cannot be evaluated. IMPRESSION: Similar appearance of atrophic right kidney. No renal calculi or hydronephrosis bilaterally. The bladder is collapsed around a Ferguson catheter and cannot be evaluated.
[2017-08-13 14:47] VITALS: BP 110/68
[2017-08-13 22:00] VITALS: BP 146/68
[2017-08-14 07:28] VITALS: BP 144/72
--- NOTE | 2017-08-14 08:20 | PN- Housestaff ---
See Addendum Subjective Follow-up For: CHF exacerbation. New onset atrial fibrillation. Tele-Events Since Last Visit: NSR 62-65 Subjective: Ms Weber was seen and examined this morning. Resiting comfortably sitting in bed. Was able to get some rest overnight. Used CPAP. States her breathing Improved. Tolearating PO Intake well. Denies, fever, chills, nausea or vomiting. Review of Systems Constitutional: Reports: see HPI. Objective Last 24 Hrs of Vital Signs/I&O Vital Signs Date Time Temp Pulse Resp B/P B/P Pulse O2 O2 Flow FiO2 Mean Ox Delivery Rate 08/14 1045 144/72 08/14 1045 144/72 08/14 1045 144/72 08/14 1045 144/72 08/14 0850 92 Nasal 1.0L Cannula 08/14 0728 98.5 67 20 144/72 99 CPAP 08/14 0011 88 93 08/14 0000 CPAP 2.0L 08/13 2200 98.1 69 20 146/68 94 Nasal 1.0L Cannula 08/13 2124 69 146/68 08/13 2124 69 146/68 08/130 96 Nasal 1.0L Cannula 08/13 2050 68 96 08/13 1625 64 110/68 08/13 1600 95 Nasal 1.0L Cannula 08/13 1447 98.4 64 18 110/68 95 Intake & Output 08/14 1600 08/14 0800 08/14 0000 Intake Total 120 622 Output Total 300 700 800 Balance -300 -580 -178 Intake, IV 22 Intake, Oral 120 600 Number 0 Bowel Movements Output, Urine 300 700 800 Patient 81.221 kg Weight Weight Bed scale Measurement Method Physical Exam General Appearance: Alert, Oriented X3, Cooperative Cardiovascular: Normal S1, Normal S2 Lungs: Mild Crackles noted Left LL Normal Air movement. Abdomen: Normal Bowel Sounds, Soft, No Tenderness Neurological: Normal Gait, Normal Speech Extremities: Edema 2+ Vascular: Normal Pulses Current Medications: Current Medications Sig/Larissa Start time Last Medication Dose Route Stop Time Status Admin Albuterol Sulfate 3 ML Q4P PRN 08/11 1045 AC INH Albuterol Sulfate 1 PUF Q4P PRN 08/10 2200 AC INH Amlodipine Besylate 10 MG DAILY 08/11 1000 AC 08/14 PO 1045 Apixaban 2.5 MG BID 08/12 1000 AC 08/14 PO 1045 Aspirin Buffered 81 MG QPM 08/10 2200 AC 08/13 PO 2125 Atorvastatin Calcium 40 MG 1700 08/11 1700 AC 08/13 PO 1625 Budesonide/ 2 PUF BID 08/10 2200 AC 08/14 Formoterol Fumarate INH 1046 Carvedilol 25 MG BID 08/10 2200 AC 08/14 PO 1045 Cholecalciferol 1,000 IU DAILY 08/11 1000 AC 08/14 PO 1045 Doxazosin Mesylate 2 MG BID 08/10 2200 AC 08/14 PO 1045 Duloxetine HCl 60 MG DAILY 08/11 1000 AC 08/14 PO 1045 Ferrous Sulfate 325 MG DAILY 08/11 1000 AC 08/14 PO 1045 Fish Oil 1,050 MG DAILY 08/11 1000 AC 08/14 PO 1045 Furosemide 80 MG 7:30 AM, & 4:30 PM 08/14 1630 UNVr PO Furosemide 120 MG Q8H 08/12 1800 DC 08/14 IV 1044 Hydralazine HCl 100 MG TID 08/10 2200 AC 08/14 PO 1045 Insulin Aspart 0 TIDAC 08/11 0800 AC 08/14 SC 1046 Insulin Detemir 10 UNITS BID 08/10 2200 AC 08/14 SC 1046 Iron Sucrose 200 MG Q48H 08/12 1200 AC 08/14 Sodium Chloride 100 ML IV 08/20 1214 1044 Isosorbide 60 MG DAILY 08/11 1000 AC 08/14 Mononitrate PO 1045 Levothyroxine Sodium 0.15 MG 0700 08/11 0700 AC 08/14 PO 0634 Metolazone 5 MG 2130 08/11 2130 DC 08/13 PO 08/14 0000 2125 Nystatin 1 RICARDO TID PRN 08/11 2345 AC TOP Phenol 2 SPRAY Q2P PRN 08/12 0830 AC EXT Potassium Chloride 40 MEQ ONCE ONE 08/14 1300 UNVr PO 08/14 1301 Last 24 Hrs of Lab/Jose Alejandro Results Last 24 Hrs of Labs/Mics: Laboratory Tests 08/14/17 0625: Anion Gap 13, Estimated GFR 17 L, BUN/Creatinine Ratio 35.4 H, CBC w Diff MAN DIFF ORDERED, RBC 2.63 L, MCV 85.3, MCH 28.2, MCHC 33.1, RDW 13.5, MPV 9.1, Gran % 58.9, Lymphocytes % 21.9, Monocytes % 11.5 H, Eosinophils % 7.0 H, Basophils % 0.7, Absolute Granulocytes 3.8, Absolute Lymphocytes 1.4, Absolute Monocytes 0.7 H, Absolute Eosinophils 0.5, Absolute Basophils 0, Platelet Estimate VERIFIED BY SMEAR, Polychromasia 1+, Poikilocytosis 1+, Basophilic Stippling 1+, Ovalocytes 1+ Assessment/Plan Assessment: 71-year-old woman with extensive cardiac history with frequent recent CHF exacerbations, recent nonrespondence 2 weekly Lasix infusion, increased Bumex dose, with subsequent 15 pound weight gain in last 1 week, warranting telemetry admission for CHF exacerbation. #Acute on chronic CHF exacerbation. ACS ruled out. Weight: 81.22 (from 86.63) Negative balance in the past 24 hours. On high-dose Lasix, IV 120 mg 3 times a day-->transitioned to Lasix 80 mg PO BID. Metolazone given 08/12/2017. May be considered for outpatient if needed Continue Daily weights. Monitor BUN/creatinine. We will aim for potassium 4-5. K-Dur 40 mg once #Paroxysmal A. Fib, currently in NSR On Coreg 25 mg BID. Anticoagulation with Eliquis 2.5 mg twice a day. #Acute kidney injury, history of CKD. Likely a result of decreased cardiac output and resultant decreased renal perfusion. Cr 2.8. Obstruction ruled out. Continue aggressive diuresis. #Diabetes. Sugars well controlled on Levemir 10 mg twice a day and insulin sliding scale. May consider increasing levemir if BS > 200. Last FS was 189. #Hypertension. Fairly well controlled. Continue amlodipine, Imdur, hydralazine , Coreg and Cardura. #History of CAD. Continue aspirin and statin. #Hypothyroidism. TSH has trended down since July 2017. Dose has been increased from 0.125 to 0.15 daily. Outpatient follow-up with endocrinology. Continue other meds. Full code. CHF diet. Heparin for DVT prophylaxis. Problem List: 1. CHF (congestive heart failure) Pain Ratin Pain Location: no Pain endorsed Pain Goal: Remain pain free Pain Plan: Tylenol PRN Tomorrow's Labs & Rationales: BEP; Monitor K CBC: Monitor H/H in the setting of drop in hemoglobin
[2017-08-14 08:26] LABS: ABSOLUTE BASOPHIL COUNT 0 /CUMM (0.0-0.2); ABSOLUTE EOSINOPHIL COUNT 0.5 /CUMM (0.0-0.7); ABSOLUTE GRANULOCYTE CT 3.8 /CUMM (1.4-6.5); ABSOLUTE LYMPH COUNT 1.4 /CUMM (1.2-3.4); ABSOLUTE MONOCYTE COUNT 0.7 /CUMM (0.10-0.60); BASOPHIL % 0.7 % (0.0-2.0); GRANULOCYTE % 58.9 % (42.2-75.2); HEMATOCRIT 22.5 % (37-47); MEAN CORPUSCULAR HGB 28.2 PG (27.0-31.0); MEAN CORPUSCULAR HGB CONC 33.1 G/DL (33.0-37.0); MEAN CORPUSCULAR VOLUME 85.3 FL (81.0-99.0); MEAN PLATELET VOLUME 9.1 FL (7.4-10.4); PLATELET COUNT 202 /CUMM (130-400); RBC DISTRIBUTION WIDTH 13.5 % (11.5-14.5); RED BLOOD CELL CT 2.63 /CUMM (4.20-5.40); WHITE BLOOD CELL COUNT 6.5 /CUMM (4.8-10.8)
--- NOTE | 2017-08-14 08:59 | PN- Cardiology ---
Subjective Subjective: Patient feels good, no chest pain, dyspnea or PND Objective Vital Signs and I&Os Vital Signs Date Time Temp Pulse Resp B/P B/P Pulse O2 O2 Flow FiO2 Mean Ox Delivery Rate 08/14 0850 92 Nasal 1.0L Cannula 08/15 727 98.5 67 20 144/72 99 CPAP 08/14 0011 88 93 08/14 0000 CPAP 2.0L 08/130 98.1 69 20 146/68 94 Nasal 1.0L Cannula 08/13 2124 69 146/68 08/14 2123 69 146/68 08/13 2049 96 Nasal 1.0L Cannula 08/13 2049 68 96 08/13 1625 64 110/68 08/13 1600 95 Nasal 1.0L Cannula 08/13 1447 98.4 64 18 110/68 95 08/13 1032 95 Nasal 1.0L Cannula 08/13 905 111 157/70 08/13 905 111 157/70 08/13 0904 111 157/70 08/13 899 Nasal 1.0L Cannula Intake & Output 08/14 1600 08/14 0800 08/14 0000 08/13 1600 08/13 0808/13 0000 Intake Total 120 622 600 300 Output Total 757 012 2886 1050 1100 Balance -580 -178 -450 -1050 -800 Intake, IV 22 Intake, Oral 120 600 600 300 Number 0 Bowel Movements Output, Urine 052 645 3935 1050 1100 Patient 179 lb 185 lb Weight Weight Bed scale Measurement Method Physical Exam: HEENT-PERRLA Neck-JVP normal, no bruits Lungs-clear bilaterally Heart-S1S2 regular Abdomen-soft, not tender, BS+, no organomegaly Extremities-improved edema, 2+ pulses,no cyanosis Neuro-non focal Current Medications: Current Medications Sig/Larissa Start time Last Medication Dose Route Stop Time Status Admin Albuterol Sulfate 3 ML Q4P PRN 08/11 1045 AC INH Albuterol Sulfate 1 PUF Q4P PRN 08/10 2199 AC INH Amlodipine Besylate 10 MG DAILY 08/11 1000 AC 08/13 PO 905 Apixaban 2.5 MG BID 08/12 999 AC 08/13 PO 212 Aspirin Buffered 81 MG QPM 08/100 AC 08/13 PO 212 Atorvastatin Calcium 40 MG 1700 08/11 1700 AC 08/13 PO 1625 Budesonide/ 2 PUF BID 08/10 2200 AC 08/13 Formoterol Fumarate INH 2124 Carvedilol 25 MG BID 08/10 2200 AC 08/13 PO 2125 Cholecalciferol 1,000 IU DAILY 08/11 1000 AC 08/13 PO 0904 Doxazosin Mesylate 2 MG BID 08/10 2200 AC 08/13 PO 2125 Duloxetine HCl 60 MG DAILY 08/11 1000 AC 08/13 PO 09 Ferrous Sulfate 325 MG DAILY 08/11 1000 AC 08/13 PO 0905 Fish Oil 1,050 MG DAILY 08/11 1000 AC 08/13 PO 0907 Furosemide 120 MG Q8H 08/12 1800 AC 08/14 IV 0200 Hydralazine HCl 100 MG TID 08/10 2200 AC 08/13 PO 212 Insulin Aspart 0 TIDAC 08/11 0800 AC 08/13 SC 1209 Insulin Detemir 10 UNITS BID 08/10 2200 AC 08/13 SC 2125 Iron Sucrose 200 MG Q48H 08/12 1200 AC 08/12 Sodium Chloride 100 ML IV 08/20 1214 1413 Isosorbide 60 MG DAILY 08/11 1000 AC 08/13 Mononitrate PO 0904 Levothyroxine Sodium 0.15 MG 0708/11 0700 AC 08/14 PO 0634 Metolazone 5 MG 0 08/11 2130 DC 08/13 PO 08/14 0000 2125 Nystatin 1 RICARDO TID PRN 08/11 2345 AC TOP Phenol 2 SPRAY Q2P PRN 08/12 0830 AC EXT Results Last 48 Hrs of Labs/Mics: Laboratory Tests 08/14/17 0625: Anion Gap 13, Estimated GFR 17 L, BUN/Creatinine Ratio 35.4 H, CBC w Diff Pending, WBC Pending, RBC Pending, Hgb Pending, Hct Pending, MCV Pending, MCH Pending, MCHC Pending, RDW Pending, Plt Count Pending, MPV Pending, Gran % Pending, Lymphocytes % Pending, Monocytes % Pending, Eosinophils % Pending, Basophils % Pending, Absolute Granulocytes Pending, Absolute Lymphocytes Pending , Absolute Monocytes Pending, Absolute Eosinophils Pending, Absolute Basophils Pending 08/13/17 0640: Anion Gap 17 H, Estimated GFR 17 L, BUN/Creatinine Ratio 37.0 H, CBC w Diff NO MAN DIFF REQ, RBC 2.82 L, MCV 85.3, MCH 28.3, MCHC 33.1, RDW 13.9, MPV 9.3, Gran % 63.1, Lymphocytes % 18.6 L, Monocytes % 12.4 H, Eosinophils % 5.2 H, Basophils % 0.7, Absolute Granulocytes 4.3, Absolute Lymphocytes 1.3, Absolute Monocytes 0.8 H, Absolute Eosinophils 0.4, Absolute Basophils 0 08/12/17 1445: CBC w Diff NO MAN DIFF REQ, RBC 2.84 L, MCV 85.8, MCH 28.6, MCHC 33.3, RDW 13.6 , MPV 9.6, Gran % 68.8, Lymphocytes % 16.4 L, Monocytes % 10.9 H, Eosinophils % 3.3, Basophils % 0.6, Absolute Granulocytes 5.5, Absolute Lymphocytes 1.3, Absolute Monocytes 0.9 H, Absolute Eosinophils 0.3, Absolute Basophils 0 Assessment/Plan Assessment/Plan 1. PAF - remained in sinus, with short episodes of asymptomatic PAF but developed controlled AF continue Eliquis 2.5 mg bid monitor blood count 2. HFpEF-clinically improved, diuresed over 5 L negative since admission, weight down to 179 lbs 3 ARFon CRI-renal function unchanged today 4. HTN-stable 5. Anemia-iron deficiency+chronic disease (CRI) Plan: change lasix to 80 mg po bid if she starts retaining fluid, will add metolazone as outpatient monitor renal function, electrolytes Keep K+ 4.0-5.0, give K dur 40 mg po today continue low dose aspirin, Eliquis keep on tely keep off ARB iv iron as per nephrology D/C home on Wednesday she will need montly erytropoetin with nephrology Continue telemetry? Yes
[2017-08-14 14:02] VITALS: BP 132/62
[2017-08-14 22:20] VITALS: BP 140/60
[2017-08-15 07:50] LABS: ABSOLUTE BASOPHIL COUNT 0 /CUMM (0.0-0.2); ABSOLUTE EOSINOPHIL COUNT 0.4 /CUMM (0.0-0.7); ABSOLUTE GRANULOCYTE CT 3.7 /CUMM (1.4-6.5); ABSOLUTE LYMPH COUNT 1.5 /CUMM (1.2-3.4); ABSOLUTE MONOCYTE COUNT 0.8 /CUMM (0.10-0.60); BASOPHIL % 0.3 % (0.0-2.0); GRANULOCYTE % 58.1 % (42.2-75.2); HEMATOCRIT 22.7 % (37-47); MEAN CORPUSCULAR HGB 28.2 PG (27.0-31.0); MEAN CORPUSCULAR HGB CONC 32.9 G/DL (33.0-37.0); MEAN CORPUSCULAR VOLUME 85.6 FL (81.0-99.0); MEAN PLATELET VOLUME 9.4 FL (7.4-10.4); PLATELET COUNT 209 /CUMM (130-400); RBC DISTRIBUTION WIDTH 13.6 % (11.5-14.5); RED BLOOD CELL CT 2.65 /CUMM (4.20-5.40); WHITE BLOOD CELL COUNT 6.4 /CUMM (4.8-10.8)
--- NOTE | 2017-08-15 10:08 | PN- Cardiology ---
Subjective Subjective: Feels good, no dyspnea or PND Objective Vital Signs and I&Os Vital Signs Date Time Temp Pulse Resp B/P B/P Pulse O2 O2 Flow FiO2 Mean Ox Delivery Rate 08/15 0016 74 94 08/15 0000 CPAP 08/14 2246 66 140/60 08/14 2247 66 140/60 08/14 2220 97.9 66 20 140/60 96 Nasal Cannula 08/14 2147 78 98 08/14 2146 95 Nasal 1.0L Cannula 08/14 1700 65 132/62 08/14 1402 98.1 65 20 132/62 96 Nasal Cannula 08/14 1045 144/72 08/14 1045 144/72 08/14 1045 144/72 08/14 1045 14472 Intake & Output 08/15 1600 08/15 0800 08/15 0000 08/14 1600 08/14 0800 08/14 0000 Intake Total 100 100 120 622 Output Total 800 600 700 800 Balance -700 100 -600 -580 -178 Intake, IV 22 Intake, Oral 100 100 120 600 Number 0 Bowel Movements Output, Urine 800 600 700 800 Patient 180 lb 179 lb Weight Weight Bed scale Bed scale Measurement Method Physical Exam: HEENT-PERRLA Neck-JVP nl,no bruits Lungs-clear bilaterally Heart-S1S2 regular Abdomen-soft,not tender, BS+,no organomegaly Extr-improved edema, 2+ pulses, no cyanosis neuro-non focal Current Medications: Current Medications Sig/Larissa Start time Last Medication Dose Route Stop Time Status Admin Albuterol Sulfate 3 ML Q4P PRN 08/11 1045 AC INH Albuterol Sulfate 1 PUF Q4P PRN 08/10 2200 AC INH Amlodipine Besylate 10 MG DAILY 08/11 1000 AC 08/14 PO 1045 Apixaban 2.5 MG BID 08/12 1000 AC 08/14 PO 2247 Aspirin Buffered 81 MG QPM 08/100 AC 08/14 PO 2247 Atorvastatin Calcium 40 MG 1700 08/11 1700 AC 08/14 PO 1800 Budesonide/ 2 PUF BID 08/10 2200 AC 08/14 Formoterol Fumarate INH 2248 Carvedilol 25 MG BID 08/10 2200 AC 08/14 PO 2247 Cholecalciferol 1,000 IU DAILY 08/11 1000 AC 08/14 PO 1045 Doxazosin Mesylate 2 MG BID 08/10 2200 AC 08/14 PO 2247 Duloxetine HCl 60 MG DAILY 08/11 1000 AC 08/14 PO 1045 Ferrous Sulfate 325 MG DAILY 08/11 1000 AC 08/14 PO 1045 Fish Oil 1,050 MG DAILY 08/11 1000 AC 08/14 PO 1045 Furosemide 80 MG 7:30 AM, & 4:30 PM 08/14 1630 AC 08/14 PO 1700 Furosemide 120 MG Q8H 08/12 1800 DC 08/14 IV 1044 Hydralazine HCl 100 MG TID 08/10 2200 AC 08/14 PO 2247 Insulin Aspart 0 TIDAC 08/11 0800 AC 08/14 SC 1800 Insulin Detemir 10 UNITS BID 08/10 2200 AC 08/14 SC 2248 Iron Sucrose 200 MG Q48H 08/12 1200 AC 08/14 Sodium Chloride 100 ML IV 08/20 1214 1044 Isosorbide 60 MG DAILY 08/11 1000 AC 08/14 Mononitrate PO 1045 Levothyroxine Sodium 0.15 MG 0700 08/11 0700 AC 08/15 PO 0515 Nystatin 1 RICARDO TID PRN 08/11 2345 AC TOP Phenol 2 SPRAY Q2P PRN 08/12 0830 AC EXT Potassium Chloride 40 MEQ ONCE ONE 08/14 1300 DC 08/14 PO 08/14 1301 1440 Results Last 48 Hrs of Labs/Mics: Laboratory Tests 08/15/17 0612: Anion Gap 12, Estimated GFR 16 L, BUN/Creatinine Ratio 35.2 H, CBC w Diff NO MAN DIFF REQ, RBC 2.65 L, MCV 85.6, MCH 28.2, MCHC 32.9 L, RDW 13.6, MPV 9.4, Gran % 58.1, Lymphocytes % 23.4, Monocytes % 12.2 H, Eosinophils % 6.0 H, Basophils % 0.3, Absolute Granulocytes 3.7, Absolute Lymphocytes 1.5, Absolute Monocytes 0.8 H, Absolute Eosinophils 0.4, Absolute Basophils 0 08/14/17 0625: Anion Gap 13, Estimated GFR 17 L, BUN/Creatinine Ratio 35.4 H, CBC w Diff MAN DIFF ORDERED, RBC 2.63 L, MCV 85.3, MCH 28.2, MCHC 33.1, RDW 13.5, MPV 9.1, Gran % 58.9, Lymphocytes % 21.9, Monocytes % 11.5 H, Eosinophils % 7.0 H, Basophils % 0.7, Absolute Granulocytes 3.8, Absolute Lymphocytes 1.4, Absolute Monocytes 0.7 H, Absolute Eosinophils 0.5, Absolute Basophils 0, Platelet Estimate VERIFIED BY SMEAR, Polychromasia 1+, Poikilocytosis 1+, Basophilic Stippling 1+, Ovalocytes 1+ Assessment/Plan Assessment/Plan Impression: 1. HFpEF-improved clinical, creatinine slightly higher today 2. PAF-remains in NSR 3. HTN-controlled off ARB 4. Anemia-iron def+chronic disease Plan: continue lasix 80 mg po bid continue low dose Eliquis and ASA iv iron per nephrology OOB d/c oxygen ? d/c tomorrow if labs stable Continue telemetry? Yes
[2017-08-15 15:00] VITALS: BP 144/70
--- NOTE | 2017-08-15 15:00 | PN- Att Addend ---
Attending MD Review Statement Attending Statement Attending MD Statement: examined this patient, discuss w/resident/PA/CLEAN RICE BROKER, agreed w/resident/PA/CLEAN RICE BROKER, discussed with family, reviewed EMR data (avail), discussed w/ nursing Attending Assessment/Plan: Laboratory Tests 08/15/17 0612: Anion Gap 12, Estimated GFR 16 L, BUN/Creatinine Ratio 35.2 H, CBC w Diff NO MAN DIFF REQ, RBC 2.65 L, MCV 85.6, MCH 28.2, MCHC 32.9 L, RDW 13.6, MPV 9.4, Gran % 58.1, Lymphocytes % 23.4, Monocytes % 12.2 H, Eosinophils % 6.0 H, Basophils % 0.3, Absolute Granulocytes 3.7, Absolute Lymphocytes 1.5, Absolute Monocytes 0.8 H, Absolute Eosinophils 0.4, Absolute Basophils 0 Vital Signs Date Time Temp Pulse Resp B/P B/P Pulse O2 O2 Flow FiO2 Mean Ox Delivery Rate 08/15 1220 93 Room Air 08/15 1101 140/60 08/15 1101 140/60 08/15 1101 140/60 08/15 1101 140/60 08/15 0016 74 94 08/15 0000 CPAP 08/14 2247 66 140/60 08/14 2247 66 140/60 08/14 2220 97.9 66 20 140/60 96 Nasal Cannula 08/14 2147 78 98 08/14 214 95 Nasal 1.0L Cannula 08/14 1700 65 132/62 Pt seen and examined while in chair Denies any sob or chest pain. Walked a little today. Physical exam . Lungs clear to auscultation. no wheezing. cvs- no murmur appreciated. COLDFUSION- A X O times 3. Labs reviewed. Hb stable at 7.5 A/p- CHF exacerbation- stable now. cont on lasix 80 mg po bid. Last dose of metolazone was on 08/13 Anemia- hb stable. getting iv iron infusions every other day. Will get 3rd dose tomorrow. Plan dc tomorrow if stable and will arrange for other iv iron infusions to be given as outpatient at infusion center.
[2017-08-15 16:00] VITALS: BP 150/62
[2017-08-15 21:40] VITALS: BP 152/66
[2017-08-15 22:57] VITALS: BP 160/66
[2017-08-16 07:08] VITALS: BP 150/70
--- NOTE | 2017-08-16 07:36 | PN- Cardiology ---
Subjective Subjective: Feels good, no complaints Objective Vital Signs and I&Os Vital Signs Date Time Temp Pulse Resp B/P B/P Pulse O2 O2 Flow FiO2 Mean Ox Delivery Rate 08/16 0708 97.7 93 20 150/70 95 CPAP 08/16 0033 64 94 08/16 0000 Nasal 1.0L Cannula 08/15 2257 97.6 68 20 160/66 98 08/15 2224 68 97 08/15 2144 70 152/66 08/15 2143 70 152/66 08/15 2140 70 152/66 08/15 2120 98 Nasal 1.0L Cannula 08/15 1603 65 150/62 08/15 1600 Nasal 1.0L Cannula 08/15 1600 65 150/62 08/15 1500 98.6 68 20 144/70 92 Room Air 08/15 1220 93 Room Air 08/15 1101 140/60 08/15 1101 140/60 08/15 1101 140/60 08/15 1101 140/60 Intake & Output 08/16 0800 08/16 0000 08/15 1600 08/15 0800 08/15 0000 08/14 1600 Intake Total 60 420 480 100 100 Output Total 500 800 600 Balance 60 420 -20 -700 100 -600 Intake, Oral 60 420 480 100 100 Output, Urine 500 800 600 Patient 190 lb 180 lb Weight Weight Bed scale Bed scale Measurement Method Physical Exam: HEENT-PERRLA Neck-JVP nrmal, no bruits Lungs-few left base crackles Heart-S1S2 irregular Abdomen-soft, not tender, BS+, no organomegaly Extr-no edema, 2+ pulses, no cyanosis Neuro-non focal Current Medications: Current Medications Sig/Larissa Start time Last Medication Dose Route Stop Time Status Admin Albuterol Sulfate 3 ML Q4P PRN 08/11 1045 AC INH Albuterol Sulfate 1 PUF Q4P PRN 08/10 2200 AC INH Amlodipine Besylate 10 MG DAILY 08/11 1000 AC 08/15 PO 1101 Apixaban 2.5 MG BID 08/12 1000 AC 08/15 PO 2144 Aspirin Buffered 81 MG QPM 08/100 AC 08/15 PO 2144 Atorvastatin Calcium 40 MG 1700 08/11 1700 AC 08/15 PO 1603 Budesonide/ 2 PUF BID 08/10 2199 AC 08/15 Formoterol Fumarate INH 2143 Carvedilol 25 MG BID 08/10 2199 AC 08/15 PO 2144 Cholecalciferol 1,000 IU DAILY 08/11 1000 AC 08/15 PO 1101 Docusate Sodium 100 MG DAILY NEEDED PRN 08/16 0545 AC PO Doxazosin Mesylate 2 MG BID 08/10 2200 AC 08/15 PO 2144 Duloxetine HCl 60 MG DAILY 08/11 1000 AC 08/15 PO 1101 Ferrous Sulfate 325 MG DAILY 08/11 1000 AC 08/15 PO 1102 Fish Oil 1,050 MG DAILY 08/11 1000 AC 08/15 PO 1101 Furosemide 80 MG 7:30 AM, & 4:30 PM 08/14 1630 AC 08/15 PO 1603 Hydralazine HCl 100 MG TID 08/10 2200 AC 08/15 PO 2143 Insulin Aspart 0 TIDAC 08/11 0800 AC 08/15 SC 1655 Insulin Detemir 10 UNITS BID 08/10 2200 AC 08/15 SC 2144 Iron Sucrose 200 MG Q48H 08/12 1200 AC 08/14 Sodium Chloride 100 ML IV 08/20 1214 1044 Isosorbide 60 MG DAILY 08/11 1000 AC 08/15 Mononitrate PO 1101 Levothyroxine Sodium 0.15 MG 0708/11 0700 AC 08/16 PO 0657 Nystatin 1 RICARDO TID PRN 08/11 2345 DC TOP Phenol 2 SPRAY Q2P PRN 08/12 0830 AC EXT Polyethylene Glycol 17 GM DAILY PRN 08/16 0545 AC PO Senna 187 MG AT BEDTIME PRN 08/16 0545 AC PO Results Last 48 Hrs of Labs/Mics: Laboratory Tests 08/16/17 0703: Sodium Pending, Potassium Pending, Chloride Pending, Carbon Dioxide Pending, Anion Gap Pending, BUN Pending, Creatinine Pending, BUN/Creatinine Ratio Pending , CBC w Diff Pending, WBC Pending, RBC Pending, Hgb Pending, Hct Pending, MCV Pending, MCH Pending, MCHC Pending, RDW Pending, Plt Count Pending, MPV Pending 08/15/17 0612: Anion Gap 12, Estimated GFR 16 L, BUN/Creatinine Ratio 35.2 H, CBC w Diff NO MAN DIFF REQ, RBC 2.65 L, MCV 85.6, MCH 28.2, MCHC 32.9 L, RDW 13.6, MPV 9.4, Gran % 58.1, Lymphocytes % 23.4, Monocytes % 12.2 H, Eosinophils % 6.0 H, Basophils % 0.3, Absolute Granulocytes 3.7, Absolute Lymphocytes 1.5, Absolute Monocytes 0.8 H, Absolute Eosinophils 0.4, Absolute Basophils 0 Assessment/Plan Assessment/Plan Impression: 1. HFpEF-improved clinical, creatinine pending today 2. PAF-back in AF as of today am, asymptomatic 3. HTN-BP mildly elevated, off ARB 4. Anemia-iron def+chronic disease Plan: continue lasix 80 mg po bid continue low dose Eliquis and ASA iv iron per nephrology requires O2, hopefully temporarily for home BMP CBC today-if stable, OK to discharge home f/u with me in 1 week patient instructed to check daily weights at home, low salt diet Continue telemetry? Yes
[2017-08-16] MEDS ORDERED: LASIX40 M1 PO (07:41)
[2017-08-16 08:24] LABS: ABSOLUTE BASOPHIL COUNT 0.1 /CUMM (0.0-0.2); ABSOLUTE EOSINOPHIL COUNT 0.6 /CUMM (0.0-0.7); ABSOLUTE GRANULOCYTE CT 3.9 /CUMM (1.4-6.5); ABSOLUTE LYMPH COUNT 1.3 /CUMM (1.2-3.4); ABSOLUTE MONOCYTE COUNT 0.8 /CUMM (0.10-0.60); EOSINOPHIL % 8.6 % (0-5); GRANULOCYTE % 58.4 % (42.2-75.2); HEMATOCRIT 23.8 % (37-47); MEAN CORPUSCULAR HGB 28.1 PG (27.0-31.0); MEAN CORPUSCULAR VOLUME 85.3 FL (81.0-99.0); MEAN PLATELET VOLUME 9.2 FL (7.4-10.4); PLATELET COUNT 224 /CUMM (130-400); RBC DISTRIBUTION WIDTH 14.1 % (11.5-14.5); RED BLOOD CELL CT 2.79 /CUMM (4.20-5.40); WHITE BLOOD CELL COUNT 6.7 /CUMM (4.8-10.8)
[2017-08-16 09:14] VITALS: BP 170/68
--- NOTE | 2017-08-16 10:38 | PN- Housestaff ---
Jean Mc 08/16/17 1012: Subjective Follow-up For: CHF exacerbation. New onset atrial fibrillation. Subjective: Feels well overall. No shortness of breath, no cough, no chest pain or palpitations. Review of Systems Constitutional: Reports: see HPI. Objective Last 24 Hrs of Vital Signs/I&O Vital Signs Date Time Temp Pulse Resp B/P B/P Pulse O2 O2 Flow FiO2 Mean Ox Delivery Rate 08/16 913 97.7 114 20 170/68 08/16 0814 97.7 114 20 170/68 08/16 0914 97.7 114 170/68 08/16 0913 114 170/68 08/16 0823 123 97 08/16 0708 97.7 93 20 150/70 95 CPAP 08/16 0033 64 94 08/16 0000 Nasal 1.0L Cannula 08/15 2257 97.6 68 20 160/66 98 08/15 2224 68 97 08/15 2144 70 152/66 08/15 2143 70 152/66 08/15 2140 70 152/66 08/15 2120 98 Nasal 1.0L Cannula 08/15 1603 65 150/62 08/15 1600 Nasal 1.0L Cannula 08/15 1600 65 150/62 08/15 1500 98.6 68 20 144/70 92 Room Air 08/15 1220 93 Room Air 08/15 1101 140/60 08/15 1101 140/60 08/15 1101 140/60 08/15 1101 140/60 Intake & Output 08/16 1600 08/16 0800 08/16 0000 Intake Total 60 420 Output Total Balance 60 420 Intake, Oral 60 420 Patient 190 lb Weight Weight Bed scale Measurement Method Physical Exam General Appearance: Alert, Oriented X3 Cardiovascular: Regular Rate, Normal S1, Normal S2 Lungs: left basilar crackles. Otherwise improvement in air entry. Abdomen: Normal Bowel Sounds, Soft, No Tenderness Extremities: No Clubbing, No Cyanosis, trace edema. Current Medications: Current Medications Sig/Larissa Start time Last Medication Dose Route Stop Time Status Admin Albuterol Sulfate 3 ML Q4P PRN 08/11 1045 AC INH Albuterol Sulfate 1 PUF Q4P PRN 08/10 2200 AC INH Amlodipine Besylate 10 MG DAILY 08/11 1000 AC 08/16 PO 913 Apixaban 2.5 MG BID 08/12 1000 AC 08/16 PO 0913 Aspirin Buffered 81 MG QPM 08/10 2200 AC 08/15 PO 2144 Atorvastatin Calcium 40 MG 1700 08/11 1700 AC 08/15 PO 1603 Budesonide/ 2 PUF BID 08/10 2200 AC 08/16 Formoterol Fumarate INH 0912 Carvedilol 25 MG BID 08/10 2200 AC 08/16 PO 0914 Cholecalciferol 1,000 IU DAILY 08/11 1000 AC 08/16 PO 0914 Docusate Sodium 100 MG DAILY NEEDED PRN 08/16 0545 AC PO Doxazosin Mesylate 2 MG BID 08/10 2200 AC 08/16 PO 0914 Duloxetine HCl 60 MG DAILY 08/11 1000 AC 08/16 PO 0914 Ferrous Sulfate 325 MG DAILY 08/11 1000 AC 08/16 PO 0914 Fish Oil 1,050 MG DAILY 08/11 1000 AC 08/16 PO 0913 Furosemide 80 MG 7:30 AM, & 4:30 PM 08/14 1630 AC 08/16 PO 0913 Hydralazine HCl 100 MG TID 08/10 2200 AC 08/16 PO 0914 Insulin Aspart 0 TIDAC 08/11 0800 AC 08/15 SC 1655 Insulin Detemir 10 UNITS BID 08/10 2200 AC 08/16 SC 0919 Iron Sucrose 200 MG Q48H 08/12 1200 AC 08/14 Sodium Chloride 100 ML IV 08/20 1214 1044 Isosorbide 60 MG DAILY 08/11 1000 AC 08/16 Mononitrate PO 0913 Levothyroxine Sodium 0.15 MG 0700 08/11 0700 AC 08/16 PO 0657 Nystatin 1 RICARDO TID PRN 08/11 2345 DC TOP Phenol 2 SPRAY Q2P PRN 08/12 0830 AC EXT Polyethylene Glycol 17 GM DAILY PRN 08/16 0545 AC PO Senna 187 MG AT BEDTIME PRN 08/16 0545 AC PO Last 24 Hrs of Lab/Jose Alejandro Results Last 24 Hrs of Labs/Mics: Laboratory Tests 08/16/17 0703: Anion Gap 12, Estimated GFR 18 L, BUN/Creatinine Ratio 40.8 H, CBC w Diff NO MAN DIFF REQ, RBC 2.79 L, MCV 85.3, MCH 28.1, MCHC 33.0, RDW 14.1, MPV 9.2, Gran % 58.4, Lymphocytes % 20.2 L, Monocytes % 11.8 H, Eosinophils % 8.6 H, Basophils % 1.0, Absolute Granulocytes 3.9, Absolute Lymphocytes 1.3, Absolute Monocytes 0.8 H, Absolute Eosinophils 0.6, Absolute Basophils 0.1 Assessment/Plan Assessment: 71-year-old woman with extensive cardiac history with frequent recent CHF exacerbations, recent nonrespondence 2 weekly Lasix infusion, increased Bumex dose, with subsequent 15 pound weight gain in last 1 week, warranting telemetry admission for CHF exacerbation. Adequately diuresed, on by mouth Lasix now. Stable to be discharged 1. Acute on chronic CHF exacerbation. 10 pound weight gain yesterday, which seems unreal in the setting of good diuresis and negative balance. Recheck weight. Lasix 80 mg BID. BUN/creatinine stable. Close follow-up with propagator laborer within 1 week of discharge. Weekly CHF clinic visits for Lasix IV infusion. 2. New onset A. Fib. On Coreg 25 mg BID for rate control. Anticoagulation with Eliquis 2.5 mg twice a day. 3. Acute kidney injury, history of CKD. Likely a result of decreased cardiac output and resultant decreased renal perfusion. Obstruction ruled out. Lasix 40 mg BID upon discharge. 4. Diabetes. Sugars well controlled on Levemir 10 mg twice a day and insulin sliding scale. 5. Hypertension. High readings noted. Will continue Continue amlodipine, Imdur, hydralazine, Coreg and Cardura and have her follow up closely with primary care physician and propagator laborer. 6. History of CAD. Continue aspirin and statin. 7. Hypothyroidism. TSH has trended down since July 2017. Dose has been increased from 0.125 to 0.15 daily. Outpatient follow-up with endocrinology. Continue other meds. Full code. CHF diet. Heparin for DVT prophylaxis. Problem List: 1. CHF (congestive heart failure) Pain Ratin Pain Location: None Pain Goal: Remain pain free Pain Plan: PRN Tomorrow's Labs & Rationales: Not needed Rima GUTIERREZ,Malissa 08/16/17 1333: Attending MD Review Statement Attending Statement Attending MD Statement: examined this patient, discuss w/resident/PA/MANAGEMENT ASSOCIATE, agreed w/resident/PA/MANAGEMENT ASSOCIATE, discussed with family, reviewed EMR data (avail), discussed with nursing, discussed with case mgmt, amended to note Attending Assessment/Plan: Patient seen and examined. Resting comfortably unless in any acute distress. No issues over the weekend. She is hemodynamically stable. She is not requiring oxygen supplementation. On examination peripheral edema has improved significantly. Lungs are clear to auscultation bilaterally. She is medically stable to be discharged home today. The nephrology service is recommending that she continue on her home dose of Bumex. She will follow-up in the CHF clinic twice a week where her she received volume status will be monitored closely additional doses of diuretics as needed. She is to continue on ventilator and will follow with the nephrology service as an outpatient for Epogen therapy. She is medically stable to be discharged today.
--- NOTE | 2017-08-16 12:13 | PN- Nephrology ---
See Addendum Assessment/Plan Nephrology Assessment: Stage IV CKD - subnephrotic proteinuria - Thought to be multifactorial 2/2 diabetic nephropathy, hypertensive nephrosclerosis, and cardiorenal factors - should also mention that she has an atrophic kidney suggestive of renovascular disease. STEVE on CKD - Presumably 2/2 cardiorenal factors with primarily R sided symptoms and venous congestion. Improved with diuresis and time. No evidence of urinary obstruction. UA with minimal cells (even with ferguson catheter) or protein c/w aforementioned diagnosis. Anemia - May be 2/2 decreased erythropoetin production from CKD. Iron deficient. Vit B12 and Folate OK. Low retic index. Started on IV Iron. Suggestion: -OK to d/c on home regimen - discussed importance of checking weight each day and increasing diuretics PRN to maintain that weight (also being set up at CHF clinic) -Cont venofer 200mg every other day x5 doses total - will need to be set up for additional 2 doses at the infusion center -Should also be set up for monthly Epogen to target a Hg 10-11 - will dose 20, 000U subq today Will see PRN if remains in-house Please call [phone] with ?'s Subjective Subjective: SCr 2.6 Feeling better Objective Vital Signs and I&Os Vital Signs Date Time Temp Pulse Resp B/P B/P Pulse O2 O2 Flow FiO2 Mean Ox Delivery Rate 08/16 0914 97.7 114 20 170/68 08/16 0914 97.7 114 20 170/68 08/16 0914 97.7 114 170/68 08/16 0913 114 170/68 08/16 0823 123 97 08/16 0800 95 Nasal 1.0L Cannula 08/16 0708 97.7 93 20 150/70 95 CPAP 08/16 0033 64 94 08/16 0000 Nasal 1.0L Cannula 08/15 2257 97.6 68 20 160/66 98 08/15 2224 68 97 03 2144 70 152/66 08/15 2143 70 152/66 08/15 2140 70 152/66 08/15 2120 98 Nasal 1.0L Cannula 08/15 1603 65 150/62 08/15 1600 Nasal 1.0L Cannula 08/15 1600 65 150/62 08/15 1500 98.6 68 20 144/70 92 Room Air 08/15 1220 93 Room Air Intake & Output 08/16 1600 08/16 0400 08/15 1600 08/15 0400 08/14 1600 08/14 0400 Intake Total 60 420 580 100 120 622 Output Total 1300 1300 800 Balance 60 420 -720 100 -1180 -178 Intake, IV 22 Intake, Oral 60 420 580 100 120 600 Number 0 Bowel Movements Output, Urine 1300 1300 800 Patient 185 lb 190 lb 180 lb 179 lb Weight Weight Bed scale Bed scale Bed scale Bed scale Measurement Method Physical Exam: Gen - ok appearing, able to lay flat HEENT - supple CV - RRR, no m/r/g Chest - clear, no w/r/r Abd - soft, NTND Ext - warm, no edema Neuro - AOX3, grossly nonfocal Current Medications: Current Medications Sig/Larissa Start time Last Medication Dose Route Stop Time Status Admin Albuterol Sulfate 3 ML Q4P PRN 08/11 1045 AC INH Albuterol Sulfate 1 PUF Q4P PRN 08/10 2200 AC INH Amlodipine Besylate 10 MG DAILY 08/11 1000 AC 08/16 PO 0914 Apixaban 2.5 MG BID 08/12 1000 AC 08/16 PO 0913 Aspirin Buffered 81 MG QPM 08/10 2200 AC 08/15 PO 2144 Atorvastatin Calcium 40 MG 1700 08/11 1700 AC 08/15 PO 1603 Budesonide/ 2 PUF BID 08/10 2200 AC 08/16 Formoterol Fumarate INH 0912 Carvedilol 25 MG BID 08/10 2200 AC 08/16 PO 0914 Cholecalciferol 1,000 IU DAILY 08/11 1000 AC 08/16 PO 0914 Docusate Sodium 100 MG DAILY NEEDED PRN 08/16 0545 AC PO Doxazosin Mesylate 2 MG BID 08/10 2200 AC 08/16 PO 0914 Duloxetine HCl 60 MG DAILY 08/11 1000 AC 08/16 PO 0914 Ferrous Sulfate 325 MG DAILY 08/11 1000 AC 08/16 PO 0914 Fish Oil 1,050 MG DAILY 08/11 1000 AC 08/16 PO 0913 Furosemide 80 MG 7:30 AM, & 4:30 PM 08/14 1630 AC 08/16 PO 0913 Hydralazine HCl 100 MG TID 08/10 2200 AC 08/16 PO 0914 Insulin Aspart 0 TIDAC 08/11 0800 AC 08/15 SC 1655 Insulin Detemir 10 UNITS BID 08/10 2200 AC 08/16 SC 0919 Iron Sucrose 200 MG Q48H 08/12 1200 AC 08/16 Sodium Chloride 100 ML IV 08/20 1214 1042 Isosorbide 60 MG DAILY 08/11 1000 AC 08/16 Mononitrate PO 0913 Levothyroxine Sodium 0.15 MG 0700 08/11 0700 AC 08/16 PO 0657 Nystatin 1 RICARDO TID PRN 08/11 2345 DC TOP Phenol 2 SPRAY Q2P PRN 08/12 0830 AC EXT Polyethylene Glycol 17 GM DAILY PRN 08/16 0545 AC PO Senna 187 MG AT BEDTIME PRN 08/16 0545 AC PO Results Pertinent Lab Results: Laboratory Tests 08/16 08/15 0703 0612 Chemistry Sodium (137 - 145 mmol/L) 134 L 132 L Potassium (3.5 - 5.1 mmol/L) 4.1 4.2 Chloride (98 - 107 mmol/L) 96 L 95 L Carbon Dioxide (22 - 30 mmol/L) 25 25 Anion Gap (5 - 16) 12 12 BUN (7 - 17 mg/dL) 106 *H 102 *H Creatinine (0.5 - 1.0 mg/dL) 2.6 H 2.9 H Estimated GFR (>60 ml/min) 18 L 16 L BUN/Creatinine Ratio (7 - 25 %) 40.8 H 35.2 H Hematology CBC w Diff NO MAN DIFF REQ NO MAN DIFF REQ WBC (4.8 - 10.8 /CUMM) 6.7 6.4 RBC (4.20 - 5.40 /CUMM) 2.79 L 2.65 L Hgb (12.0 - 16.0 G/DL) 7.9 L 7.5 L Hct (37 - 47 %) 23.8 L 22.7 L MCV (81.0 - 99.0 FL) 85.3 85.6 MCH (27.0 - 31.0 PG) 28.1 28.2 MCHC (33.0 - 37.0 G/DL) 33.0 32.9 L RDW (11.5 - 14.5 %) 14.1 13.6 Plt Count (130 - 400 /CUMM) 224 209 MPV (7.4 - 10.4 FL) 9.2 9.4 Gran % (42.2 - 75.2 %) 58.4 58.1 Lymphocytes % (20.5 - 51.1 %) 20.2 L 23.4 Monocytes % (1.7 - 9.3 %) 11.8 H 12.2 H Eosinophils % (0 - 5 %) 8.6 H 6.0 H Basophils % (0.0 - 2.0 %) 1.0 0.3 Absolute Granulocytes (1.4 - 6.5 /CUMM) 3.9 3.7 Absolute Lymphocytes (1.2 - 3.4 /CUMM) 1.3 1.5 Absolute Monocytes (0.10 - 0.60 /CUMM) 0.8 H 0.8 H Absolute Eosinophils (0.0 - 0.7 /CUMM) 0.6 0.4 Absolute Basophils (0.0 - 0.2 /CUMM) 0.1 0 03/10 0625 Chemistry Sodium (137 - 145 mmol/L) 133 L Potassium (3.5 - 5.1 mmol/L) 3.7 Chloride (98 - 107 mmol/L) 96 L Carbon Dioxide (22 - 30 mmol/L) 25 Anion Gap (5 - 16) 13 BUN (7 - 17 mg/dL) 99 H Creatinine (0.5 - 1.0 mg/dL) 2.8 H Estimated GFR (>60 ml/min) 17 L BUN/Creatinine Ratio (7 - 25 %) 35.4 H Hematology CBC w Diff MAN DIFF ORDERED WBC (4.8 - 10.8 /CUMM) 6.5 RBC (4.20 - 5.40 /CUMM) 2.63 L Hgb (12.0 - 16.0 G/DL) 7.4 *L Hct (37 - 47 %) 22.5 L MCV (81.0 - 99.0 FL) 85.3 MCH (27.0 - 31.0 PG) 28.2 MCHC (33.0 - 37.0 G/DL) 33.1 RDW (11.5 - 14.5 %) 13.5 Plt Count (130 - 400 /CUMM) 202 MPV (7.4 - 10.4 FL) 9.1 Gran % (42.2 - 75.2 %) 58.9 Lymphocytes % (20.5 - 51.1 %) 21.9 Monocytes % (1.7 - 9.3 %) 11.5 H Eosinophils % (0 - 5 %) 7.0 H Basophils % (0.0 - 2.0 %) 0.7 Absolute Granulocytes (1.4 - 6.5 /CUMM) 3.8 Absolute Lymphocytes (1.2 - 3.4 /CUMM) 1.4 Absolute Monocytes (0.10 - 0.60 /CUMM) 0.7 H Absolute Eosinophils (0.0 - 0.7 /CUMM) 0.5 Absolute Basophils (0.0 - 0.2 /CUMM) 0 Platelet Estimate (ADEQUATE) VERIFIED BY SMEAR Polychromasia 1+ Poikilocytosis 1+ Basophilic Stippling 1+ Ovalocytes 1+ Imaging/Other Studies: None new
[2017-08-16] MEDS ORDERED: VENOFER200 MG/10 IV (13:14)
[2017-08-16] MEDS ORDERED: METOLAZONE2.5 M1 PO (14:03)
== END 2017-08-16 15:28 | disposition home health service (06) | DRG 291 ==
LOC: ERH 15:22 → 1NO 19:25 → ERHI 19:25 → ENRESERV 21:00 → ENTRNSPT 21:59 → EDTRNSPTSTS 22:12 → EDTRNSPT 22:12 → 1NO 22:18 → CMPTRNSPT 22:28 → 1NO 08-11 08:20 → ENTRNSPT 08-16 15:20 → 1NO 08-16 15:28 → CMPTRNSPT 08-16 15:38
PROVIDERS: Emergency Medicine; Hospitalist; Internal Medicine Hematology & Oncology; Student in an Organized Health Care Education/Training Program
DX: I13.0 Hypertensive heart and chronic kidney disease with heart failure and stage 1 through stage 4 chronic kidney disease, or unspecified chronic kidney disease (principal); I50.33 Acute on chronic diastolic (congestive) heart failure; E87.2 Acidosis; N18.4 Chronic kidney disease, stage 4 (severe); N17.9 Acute kidney failure, unspecified; J96.11 Chronic respiratory failure with hypoxia; E11.21 Type 2 diabetes mellitus with diabetic nephropathy; Z99.81 Dependence on supplemental oxygen; I48.0 Paroxysmal atrial fibrillation; D50.8 Other iron deficiency anemias; D63.1 Anemia in chronic kidney disease; E11.22 Type 2 diabetes mellitus with diabetic chronic kidney disease; Z79.4 Long term (current) use of insulin; J44.9 Chronic obstructive pulmonary disease, unspecified; G47.33 Obstructive sleep apnea (adult) (pediatric); E03.9 Hypothyroidism, unspecified; F41.9 Anxiety disorder, unspecified; F32.9 Major depressive disorder, single episode, unspecified; Z79.82 Long term (current) use of aspirin; I25.10 Atherosclerotic heart disease of native coronary artery without angina pectoris; Z95.5 Presence of coronary angioplasty implant and graft; M48.00 Spinal stenosis, site unspecified; J45.909 Unspecified asthma, uncomplicated; D72.829 Elevated white blood cell count, unspecified
CPT/HCPCS: 1NP; 36415; 36592; 71046; 76775; 81001; 82436; 82570; 93005; 93010; 96372; 96374; 97116-GP; 97161-GP; 99291; G8984-GP; G8985-GP; G8986-GP; J0885-EC; J1644; J1756; J1940; J3490

== ENCOUNTER 2017-09-09 15:32 | Inpatient (IN) | payer OTHER ==
[~2017-09-09] VITALS: Ht 147.3 cm; Wt 84.4 kg
[~2017-09-09 15:32] MED LIST changes: +ELIQUIS2.5 M1 PO; +LASIX40 M1 PO; +METOLAZONE2.5 M1 PO; +TRULICITY0.75 MG/01 SC; +VENOFER200 MG/10 IV
[2017-09-09 18:53] LABS: ABSOLUTE BASOPHIL COUNT 0 /CUMM (0.0-0.2); ABSOLUTE EOSINOPHIL COUNT 0.5 /CUMM (0.0-0.7); ABSOLUTE GRANULOCYTE CT 6.4 /CUMM (1.4-6.5); ABSOLUTE LYMPH COUNT 1.7 /CUMM (1.2-3.4); ABSOLUTE MONOCYTE COUNT 1.2 /CUMM (0.10-0.60); BASOPHIL % 0.5 % (0.0-2.0); EOSINOPHIL % 5.5 % (0-5); HEMATOCRIT 32.5 % (37-47); MEAN CORPUSCULAR HGB 28.5 PG (27.0-31.0); MEAN CORPUSCULAR HGB CONC 33.6 G/DL (33.0-37.0); MEAN CORPUSCULAR VOLUME 84.8 FL (81.0-99.0); MEAN PLATELET VOLUME 9.3 FL (7.4-10.4); PLATELET COUNT 250 /CUMM (130-400); RBC DISTRIBUTION WIDTH 14.6 % (11.5-14.5); RED BLOOD CELL CT 3.83 /CUMM (4.20-5.40); WHITE BLOOD CELL COUNT 9.8 /CUMM (4.8-10.8)
[2017-09-09] MEDS ORDERED: CYMBALTA30 M1 PO (20:08)
--- NOTE | 2017-09-09 20:09 | ED GENERAL ADULT ---
History of Present Illness General Chief Complaint: General Adult Stated Complaint: SIB "MY KIDNEY NUMBERS ARE OFF" Source: patient, family, old records Exam Limitations: no limitations Vital Signs & Intake/Output Vital Signs & Intake/Output Vital Signs Date Time Temp Pulse Resp B/P B/P Pulse O2 O2 Flow FiO2 Mean Ox Delivery Rate 09/09 2048 98.4 66 20 162/68 93 Room Air 09/09 1544 97.2 64 16 139/57 Allergies Coded Allergies: povidone-iodine (From BETADINE) (RASH 04/11/17) ITCH PER ANTIBIOTIC ORDER SHEET OF 12/04/16 (SJS) soap (From BETADINE) (RASH 04/11/17) PARISH Inhibitors (Mild, COUGH 04/11/17) Reconcile Medications Acetaminophen With Codeine (Acetaminophen-Cod #3 Tablet) 300 MG-30 MG TABLET 1 TAB PO Q6P PRN PAIN (Reported) Albuterol Sulfate (Proair Hfa) 90 MCG HFA.AER.AD 1 PUF INH AD PRN ASTHMA ( Reported) Alpha Lipoic Acid 300 MG CAPSULE 2 CAP PO BID NEUROPATHIC PAIN (Reported) Amlodipine Besylate (Norvasc) 10 MG TABLET 1 TAB PO DAILY HTN . Apixaban (Eliquis) 2.5 MG TABLET 2.5 MG PO BID Atrial Fibrillation Aspirin (Ecotrin*) 81 MG TABLET.DR 1 TAB PO QPM HEART/BLOOD (Reported) Azilsartan Medoxomil (Edarbi) 80 MG TABLET 1 TAB PO DAILY BP (Reported) Bumetanide 1 MG TABLET 4 TAB PO BID WATER RETENTION (Reported) Carvedilol (Coreg) 25 MG TABLET 1 TAB PO BID HTN (Reported) Cholecalciferol (Vitamin D3) (Vitamin D) 1,000 UNIT TABLET 2 TAB PO DAILY VITAMIN SUPPORT (Reported) Difluprednate (Durezol) 0.05 % DROPS 1 GTT OD TID RIGHT EYE (Reported) Doxazosin Mesylate (Cardura) 2 MG TABLET 1 TAB PO BID BP (Reported) Dulaglutide (Trulicity) 0.75 MG/0.5 ML PEN.INJCTR 0.5 MG SC QTUES DM ( Reported) Duloxetine Hydrochloride (Cymbalta) 30 MG CAPSULE.DR 1 CAP PO DAILY NERVE PAIN (Reported) Epinastine HCl 0.05 % DROPS 1 DROP OU BID ALLERGIES (Reported) Escitalopram Oxalate 10 MG TABLET 1 TAB PO DAILY MENTAL HEALTH (Reported) Ferrous Sulfate 325 MG (65 MG IRON) TABLET.DR 1 TAB PO DAILY ANEMIA Fluticasone/Salmeterol (Advair 250-50 Diskus) 1 EACH BLST.W.DEV 1 PUF INH BID ASTHMA (Reported) Hydralazine HCl 100 MG TABLET 1 TAB PO TID BP (Reported) Insulin Aspart (Novolog) 100 UNIT/ML VIAL DM (Reported) Insulin Detemir (Levemir) 100 UNIT/ML VIAL 26 UNITS SC QPM DM Iron Sucrose Complex (Venofer) 200 MG IRON/10 ML VIAL 200 MG IV EOD ANEMIA DUE TO CKD Isosorbide Mononitrate (Isosorbide Mononitrate ER) 60 MG TAB.ER.24H 1 TAB PO DAILY HEART (Reported) Levothyroxine Sodium 150 MCG TABLET 1 TAB PO DAILY Hypothyroidism . Metolazone 2.5 MG TABLET 1 TAB PO TUESFRI DIURETIC (Reported) [place]-3 Fatty Acids/Fish Oil (Fish Oil 1,000 MG Capsule) 340 MG-1,000 MG CAPSULE 1 CAP PO BID SUPPLEMENT (Reported) Rosuvastatin Calcium (Crestor) 20 MG TABLET 1 TAB PO QPM HYPERCHOLESTROLEMIA (Reported) Core Measure Meds [facility]ospital [facility] Triage Note: PT STATES SHE WAS SENT IN BY DR. WOODSON FOR KIDNEY FUNCTION "BEING OFF". PT HAD BW DONE YESTERDAY. PT STATES SHE DOESN'T FEEL WELL STATES SHE IS FEELING LETHARGIC AND TIRED "BUT I HAVE A LOT OF OTHER PROBLEMS". Triage Nurses Notes Reviewed? yes Onset: Just prior to arrival Duration: constant Timing: recent history Injury Environment: home Severity: moderate Modifying Factors: Worsens With: medication. LMP (ages 10-50): post menopausal : No Patient currently breastfeeds: No HPI: Prior to admission patient was advised evaluation for worsening renal function. She complains of generalized weakness mild headache. She received IV Lasix yesterday. She denies fever chills nausea vomiting diarrhea abdominal pain chest pain shortness breath headache dysuria rash bleeding. Past History Travel History Traveled to [place] past 21 day No Medical History Any Pertinent Medical History? 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 Psychiatric: anxiety, depression Endocrine: diabetes, HYPOTHYROID Blood Disorders: anemia Cancer(s): NONE STUDENT MINISTRY PASTOR/Reproductive: NONE History of MRSA: No History of VRE: No History of CDIFF: No Influenza Vaccine: 03/31/17 Surgical History Surgical History: Parathyroidectomy carpal tunnel surgery trigger finger surgery Psychosocial History Who do you live with Spouse Services at Home None What is your primary language Maltese Tobacco Use: Never used ETOH Use: occasional use Illicit Drug Use: denies illicit drug use Family History Family History, If Any: MOTHER (Diabetes mellitus, from diabetic complications). SISTER (Pancreatic cancer). Hx Contributory? No Review of Systems Review of Systems Constitutional: Reports: see HPI, weakness. EENTM: Reports: no symptoms. Respiratory: Reports: no symptoms. Cardiovascular: Reports: no symptoms. GI: Reports: no symptoms. Genitourinary: Reports: no symptoms. Musculoskeletal: Reports: no symptoms. Skin: Reports: no symptoms. Neurological/Psychological: Reports: see HPI, headache. Hematologic/Endocrine: Reports: no symptoms. Immunologic/Allergic: Reports: no symptoms. All Other Systems: Reviewed and Negative Physical Exam Physical Exam General Appearance: well developed/nourished, alert, awake, comfortable, obese Head: atraumatic, normal appearance Eyes: Bilateral: normal appearance, PERRL, EOMI. Ears, Nose, Throat: normal pharynx, normal ENT inspection, hearing grossly normal Neck: normal inspection, supple, full range of motion, no midline tenderness Respiratory: chest non-tender, no respiratory distress, quiet respiration, decreased breath sounds Cardiovascular: regular rate/rhythm, normal peripheral pulses, norml femoral pulses equa Peripheral Pulses: 4+ carotid (R), 4+ carotid (L) Gastrointestinal: normal bowel sounds, soft, non-tender, no organomegaly Back: normal inspection, normal range of motion, no vertebral tenderness Extremities: pedal edema Neurologic/Psych: no motor/sensory deficits, awake, alert, oriented x 3, normal gait, normal mood/affect, manipulative therapy specialist II-XII nml as tested Reflexes: 2+: bicep (R), bicep (L). Skin: intact, normal color, warm/dry Lymphatic: no anterior cervical yenni Core Measures ACS in differential dx? No CVA/TIA Diagnosis: No Sepsis Present: No Sepsis Focused Exam Completed? No Progress Differential Diagnoses I considered the following diagnoses in my evaluation of the patient: Acute on chronic renal failure divers medication reaction Plan of Care: Orders Procedure Date/time Status Renal Dialysis Diet 09/10 B Active Patient Data 09/09 2020 Active OXYGEN SETUP (GEN) 09/09 1930 Active Saline Lock 09/09 1930 Active Admit to inpatient 09/09 1930 Active Vital Signs 09/09 1930 Active Activity/Ambulation 09/09 1930 Active URINE CREATININE, SPOT 09/09 1930 Active URINE LYTES, SPOT 09/09 1930 Active URINALYSIS 09/09 1930 Active Code Status 09/09 1930 Active TROPONIN LEVEL 09/09 1641 Complete MAGNESIUM 09/09 1641 Complete COMPREHENSIVE METABOLIC PANEL 09/09 1641 Complete CBC WITHOUT DIFFERENTIAL 09/09 1641 Complete EKG 09/09 1641 Active Current Medications Sig/Larissa Start time Last Medication Dose Stop Time Status Admin Acetaminophen/ 1 TAB Q6P PRN 09/09 2100 UNVr Codeine Phosphate (Tylenol #3) Laboratory Tests 09/09/17 1835: CBC w Diff NO MAN DIFF REQ, RBC 3.83 L, MCV 84.8, MCH 28.5, MCHC 33.6, RDW 14.6 H, MPV 9.3, Gran % 65.0, Lymphocytes % 17.3 L, Monocytes % 11.7 H, Eosinophils % 5.5 H, Basophils % 0.5, Absolute Granulocytes 6.4, Absolute Lymphocytes 1.7, Absolute Monocytes 1.2 H, Absolute Eosinophils 0.5, Absolute Basophils 0 09/09/17 1825: Anion Gap 21 H, Estimated GFR 10 L, BUN/Creatinine Ratio 31.9 H, Glucose 111 H, Calcium 9.8, Magnesium 2.5 H, Total Bilirubin 0.9, AST 12 L, ALT 18, Alkaline Phosphatase 84, Troponin I < 0.01, Total Protein 7.7, Albumin 4.6, Globulin 3.1, Albumin/Globulin Ratio 1.5 Diagnostic Imaging: Viewed by Me: Radiology Read. Discussed w/RAD: Radiology Read. CXR Impression: Stable enlarged cardiac silhouette and stable degree of vascular congestion. Initial ED EKG: normal axis, normal intervals, normal p-waves, normal QRS complex, NSR, no ST T wave changes Prior EKG: unchanged Rhythm Strip: normal sinus rhythm Departure Departure Time of Disposition: 2012 Disposition: STILL A PATIENT Condition: Stable Clinical Impression Primary Impression: Acute on chronic renal failure Secondary Impressions: Hyponatremia Referrals: Jacinta Huang MD (PCP/Family) Departure Forms: Customer Survey General Discharge Information Admission Note Spoke With: Fabien Carpio MD Documentation of Exam: Documentation of any treatments & extenuating circumstances including Concerns Regarding Discharge (functional status, medication knowledge or non-compliance, living conditions, etc.) that warrant an admission rather than observation: Renal evaluation cardiac monitoring serial EKG serial lab exam medication adjustment physical therapy continuing care discharge planning Critical Care Note Critical Care Note Critical Care Time: non-applicable
[2017-09-09] MEDS ORDERED: METOLAZONE2.5 M1 PO (20:10)
[2017-09-09] MEDS ORDERED: EPINASTINE HCL5 ML OU (20:11)
[2017-09-09] MEDS ORDERED: ESCITALOPRAM OX10 MG PO (20:11)
[2017-09-09] MEDS ORDERED: ACETAMINOPHEN-1 EAC3 PO (20:11)
--- NOTE | 2017-09-09 20:42 | RADIOLOGY REPORT ---
EXAMINATION: CHEST 2 VIEWS CLINICAL INFORMATION: Worsening renal failure. COMPARISON: 08/10/2017. TECHNIQUE: PA and lateral views of the chest were obtained. FINDINGS: The cardiac silhouette is enlarged, but stable. There is a stable degree of interstitial prominence throughout both lungs. There are no consolidations. The lungs are mildly hyperinflated. The osseous structures are stable with a spinal stimulator in place. IMPRESSION: Stable enlarged cardiac silhouette and stable degree of vascular congestion.
--- NOTE | 2017-09-09 21:33 | History & Physical ---
Ky Sarmiento MD 09/09/17 2133: General Information and [facility] MD Statement: I have seen and personally examined JOSELYN DUARTE and documented this H&P. The patient is a 72 year old F who presented with a patient stated chief complaint of abnormal kidney blood tests. Source of Information: patient, old records Exam Limitations: no limitations History of Present Illness: 72 year old female with past medical history significant for coronary artery disease s/p stents, hypertension, diabetes, HFpEF, CKD stage IV, COPD recently hospitalization with CHF exacerbation from 08/10/2017-08/16/2017 with 15lb weight gain and new oxygen requirement. The patient was diuresed with 120mg IV BID during that admission and discharged on Bumex 4mg PO BID and metolazone dosed two times a week with which she has been compliant. She has also been following at the CHF clinic where she receives intravenous furosemide and has blood work drawn. She has been doing quite well since her recent discharge. She has been diuresing well and titrated off supplemental oxygen within two weeks of discharge. Her lower extremity edema while present is significantly improved from prior hospitalization. She occasionally has transient exertional hypoxia but she uses an accapella device and the hypoxia resolves. She was last the CHF clinic yesterday, had blood drawn, and was given 80mg intravenous furosemide in addition to IV iron and procrit. She was called by Dr. Mitchell that she had developed kidney failure and told to come to emergency department. She has been feeling well other than complaints of chronic back pain and lethargy. Her review of systems is negative for chest pain, pressure or palpitations. She is unaware of when she is in atrial fibrillation. She does complain of a chronic nonproductive cough. She was planning to have a spinal L4 -L5 fusion performed at the end of the month. Her recent medication changes are adding trulicity, reducing cymbalta to 30mg and starting lexapro. In the emergency department, she was given Tylenol #3 for her complaints of back pain and admitted to telemetry for further management. Allergies/Medications Allergies: Coded Allergies: povidone-iodine (From BETADINE) (RASH 04/11/17) ITCH PER ANTIBIOTIC ORDER SHEET OF 12/04/16 (SJS) soap (From BETADINE) (RASH 04/11/17) PARISH Inhibitors (Mild, COUGH 04/11/17) Home Med list Acetaminophen With Codeine (Acetaminophen-Cod #3 Tablet) 300 MG-30 MG TABLET 1 TAB PO Q6P PRN PAIN (Reported) Albuterol Sulfate (Proair Hfa) 90 MCG HFA.AER.AD 1 PUF INH AD PRN ASTHMA ( Reported) Alpha Lipoic Acid 300 MG CAPSULE 2 CAP PO BID NEUROPATHIC PAIN (Reported) Amlodipine Besylate (Norvasc) 10 MG TABLET 1 TAB PO DAILY HTN . Apixaban (Eliquis) 2.5 MG TABLET 2.5 MG PO BID Atrial Fibrillation Aspirin (Ecotrin*) 81 MG TABLET.DR 1 TAB PO QPM HEART/BLOOD (Reported) Azilsartan Medoxomil (Edarbi) 80 MG TABLET 1 TAB PO DAILY BP (Reported) Bumetanide 1 MG TABLET 4 TAB PO BID WATER RETENTION (Reported) Carvedilol (Coreg) 25 MG TABLET 1 TAB PO BID HTN (Reported) Cholecalciferol (Vitamin D3) (Vitamin D) 1,000 UNIT TABLET 2 TAB PO DAILY VITAMIN SUPPORT (Reported) Difluprednate (Durezol) 0.05 % DROPS 1 GTT OD TID RIGHT EYE (Reported) Doxazosin Mesylate (Cardura) 2 MG TABLET 1 TAB PO BID BP (Reported) Dulaglutide (Trulicity) 0.75 MG/0.5 ML PEN.INJCTR 0.5 MG SC QTUES DM ( Reported) Duloxetine Hydrochloride (Cymbalta) 30 MG CAPSULE.DR 1 CAP PO DAILY NERVE PAIN (Reported) Epinastine HCl 0.05 % DROPS 1 DROP OU BID ALLERGIES (Reported) Escitalopram Oxalate 10 MG TABLET 1 TAB PO DAILY MENTAL HEALTH (Reported) Ferrous Sulfate 325 MG (65 MG IRON) TABLET.DR 1 TAB PO DAILY ANEMIA Fluticasone/Salmeterol (Advair 250-50 Diskus) 1 EACH BLST.W.DEV 1 PUF INH BID ASTHMA (Reported) Hydralazine HCl 100 MG TABLET 1 TAB PO TID BP (Reported) Insulin Aspart (Novolog) 100 UNIT/ML VIAL DM (Reported) Insulin Detemir (Levemir) 100 UNIT/ML VIAL 26 UNITS SC QPM DM Iron Sucrose Complex (Venofer) 200 MG IRON/10 ML VIAL 200 MG IV EOD ANEMIA DUE TO CKD Isosorbide Mononitrate (Isosorbide Mononitrate ER) 60 MG TAB.ER.24H 1 TAB PO DAILY HEART (Reported) Levothyroxine Sodium 150 MCG TABLET 1 TAB PO DAILY Hypothyroidism . Metolazone 2.5 MG TABLET 1 TAB PO TUESFRI DIURETIC (Reported) [place]-3 Fatty Acids/Fish Oil (Fish Oil 1,000 MG Capsule) 340 MG-1,000 MG CAPSULE 1 CAP PO BID SUPPLEMENT (Reported) Rosuvastatin Calcium (Crestor) 20 MG TABLET 1 TAB PO QPM HYPERCHOLESTROLEMIA (Reported) Compliance With Home Meds: GOOD Past History Travel History Traveled to [place] past 21 day No Medical History Neurological: vertigo EENT: SLEEP APNEA Cardiovascular: CHF, hypertension Respiratory: asthma, pneumonia, SLEEP APNEA NOCTURNAL CPAP Gastrointestinal: NONE Hepatic: NONE Renal: CKD 3 Musculoskeletal: SPINAL STENOSIS PAIN STIMULATOR Psychiatric: anxiety, depression Endocrine: diabetes, HYPOTHYROID Blood Disorders: anemia Cancer(s): NONE SOFTWARE SUPPORT SPECIALIST/Reproductive: NONE History of MRSA: No History of VRE: No History of CDIFF: No Influenza Vaccine: 03/31/17 Surgical History Surgical History: Parathyroidectomy carpal tunnel surgery trigger finger surgery Past Family/Social History Family History Relations & Conditions if any MOTHER (Diabetes mellitus, from diabetic complications). SISTER (Pancreatic cancer). Psychosocial History Who Do You Live With? spouse Services at Home: None Primary Language: [place] ETOH Use: occasional use Illicit Drug Use: denies illicit drug use Functional Ability ADLs Independent: dressing, eating, toileting, bathing. Ambulation: cane, Patient used a cane when outside the house but ambulates independently indoors. IADLs Independent: finances, food prep, telephone, medication admin. Needs Assist: shopping, housework, transportation. Review of Systems Review of Systems Constitutional: Reports: malaise. Denies: chills, diaphoresis, fever. EENTM: Reports: no symptoms. Cardiovascular: Reports: peripheral edema. Denies: chest pain, orthopena, palpitations, syncope. Respiratory: Reports: cough, short of breath. Denies: orthopnea, sputum production. GI: Denies: abdominal pain, constipation, diarrhea, nausea, vomiting. Genitourinary: Reports: frequency. Denies: dysuria. Musculoskeletal: Reports: back pain. Skin: Reports: no symptoms. Neurological/Psychological: Reports: no symptoms. Hematologic/Endocrine: Reports: no symptoms. Immunologic/Allergic: Reports: no symptoms. All Other Systems: Reviewed and Negative Exam & Diagnostic Data Last 24 Hrs of Vital Signs/I&O Vital Signs Date Time Temp Pulse Resp B/P B/P Pulse O2 O2 Flow FiO2 Mean Ox Delivery Rate 09/09 2201 98.8 68 18 153/67 94 Room Air 09/090 Room Air 09/09 2049 98.4 66 20 162/68 93 Room Air 09/09 1544 97.2 64 16 139/57 Intake & Output 09/09 1600 09/09 0800 09/09 0000 Intake Total Output Total Balance Patient 83.461 kg Weight Weight Reported by Patient Measurement Method Physical Exam General Appearance Alert, Oriented X3, Cooperative, No Acute Distress Neck Supple, No JVD Cardiovascular Normal S1, Normal S2, irregular rhythm Lungs bibasilar crackles L>R Abdomen Normal Bowel Sounds, Soft, No Tenderness, No Masses, obese Extremities No Clubbing, No Cyanosis, Normal Pulses, 2+ bilateral lower extremity pitting edema Last 24 Hrs of Labs/Jose Alejandro: Laboratory Tests 09/09/17 1835: CBC w Diff NO MAN DIFF REQ, RBC 3.83 L, MCV 84.8, MCH 28.5, MCHC 33.6, RDW 14.6 H, MPV 9.3, Gran % 65.0, Lymphocytes % 17.3 L, Monocytes % 11.7 H, Eosinophils % 5.5 H, Basophils % 0.5, Absolute Granulocytes 6.4, Absolute Lymphocytes 1.7, Absolute Monocytes 1.2 H, Absolute Eosinophils 0.5, Absolute Basophils 0 09/09/17 1825: Anion Gap 21 H, Estimated GFR 10 L, BUN/Creatinine Ratio 31.9 H, Glucose 111 H, Serum Osmolality 317 H, Calcium 9.8, Magnesium 2.5 H, Total Bilirubin 0.9, AST 12 L, ALT 18, Alkaline Phosphatase 84, Troponin I < 0.01, Total Protein 7.7 , Albumin 4.6, Globulin 3.1, Albumin/Globulin Ratio 1.5 Diagnostic Data EKG Results EKG atrial fibrillation with PVCs CXR Results The cardiac silhouette is enlarged, but stable. There is a stable degree of interstitial prominence throughout both lungs. There are no consolidations. The lungs are mildly hyperinflated. The osseous structures are stable with a spinal stimulator in place. Other Results Echo 07/25 Normal size left ventricle. Mild concentric left ventricular hypertrophy. Normal left ventricular ejection fraction visually estimated at > 60%. "pseudonormal" filling pattern of the left ventricle for age (stage 2 diastolic dysfunction). Mild left atrial dilatation. Mild mitral regurgitation. Mild aortic regurgitation. Right ventricular systolic pressure estimated to be elevated at 49 mmHg. Trace pulmonic regurgitation. Assessment/Plan Assessment: 72 year old female with past medical history significant for coronary artery disease s/p stents, hypertension, diabetes, HFpEF, CKD stage IV, COPD recently hospitalization with CHF exacerbation from 08/10/2017-08/16/2017 was sent in for management of acute kidney injury during outpatient diuresis. Acute kidney injury: Creatinine 4.2 today, one week ago and day of discharge 08/16, creatinine 2.6- 2.7 Hold diuretics lasix, bumex, and metolazone No intravenous fluids at this time, liberal PO intake Avoid nephrotoxic agents Trend renal function CKD: Stage IV CKD Nephrology consultation in the morning Hyponatremia: Serum sodium 126, previously in 130s on discharge last month Hypervolemic hyponatremia Check serum osmoles and urinary electrolytes Likely related to aggressive diuresis and congestive heart failure Atrial fibrillation: Continue eliquis and carvedilol Goal HR <110 HFpEF: Diuretics and ACEi on hold because of STEVE Continue beta blockade Check daily weights Strict I/O's Appears volume overloaded but intravascularly depleted from aggressive diuresis CAD: Continue aspirin, beta blockers HTN: Continue norvasc and hydralazine Hold ARB Hold diuretics DM: Diabetic diet Hold oral hypoglycemics Accuchecks TIDAC/HS Levemir 8 units SC BID, on 26units daily at home Novolog insulin sliding scale Hypothyroidism: Continue synthroid 150mcg TSH elevated on previous admission COPD: TRC evaluation Currently saturating well on room air SUSIE: CPAP set up 12cm H2O Depression: Continue cymbalta and lexapro Spinal stenosis: Ofirmev and if required opioids for analgesia Avoid NSAIDs with STEVE Scheduled for spinal fusion at the end of the month Diabetic diet DVT ppx-on eliquis Full code As Ranked By This Provider Problem List: 1. Acute on chronic renal failure 2. CHF (congestive heart failure) 3. COPD (chronic obstructive pulmonary disease) 4. SUSIE on CPAP 5. Diabetes mellitus Core Measures/Misc (02/21) Acute Coronary Syndrome ACS Diagnosis: No Congestive Heart Failure Congestive Heart Failure Diagnosis Yes Last Known EF % 60 Cerebrovascular Accident CVA/TIA Diagnosis: No VTE (View Protocol) VTE Risk Factors Age>40 No Mechanical VTE Prophylaxis d/t N/A MechProphylax Ordered No VTE Pharm Prophylaxis d/t NA PharmProphylax ordered Sepsis (View protocol) Sepsis Present: No Conrado GUTIERREZ,[facility] 09/10/17 0359: Resident Review Statement Resident Statement: examined this patient, discussed with art gallery internship, agreed with art gallery internship Other Findings: 72 year old female with a past medical history significant for SUSIE on CPAP, hypothyroidism, depression, CAD A/P stent, HTN, IDDM, HFpEF, CKD stage IV, COPD, recent admission for CHF exacerbation who was instructed by nephrology Dr. Mitchell to visit the ED given worsening kidney function on outpatient labs. The patient was discharged on 08/16/2017 after she was treated for CHF exacerbation, on discharge she was in 2 L of oxygen that was tapered down to 0 after her shortness breath improved. She reported adding 15 pound weight since last discharge. She is following with wellness clinic where she was was given IV furosemide and blood workup was shown, results came back showing concerning results for which she was instructed to visit the ED. Patient is complaining of chronic back pain and she was scheduled for spinal fusion at the end of this month. Vitals and physical exam BP 139/57, HR 64, RR 16, Temp 97.2 and saturating lower 90s on room air. Physical Exam: Alert and oriented X3, no JVD, CVS showed regular heartrate with normal S1/S2 without MRGs, Resp diffuse scattered crackles. Abdomen within normal limits, extremity +2 bilateral lower extremity edema without cyanosis or clubbing. Labs/imaging: No leukocytosis, H&H 10.9 & 32.5, Na 126, K 4.5, anion gap 21, E on 134, creatinine 4.2, glucose 111, serum osmolarity 317, with normal liver function. Cxray: Stable enlarged cardiac silhouette and stable degree of vascular congestion. Assessment 72-year-old female with multiple comorbidities was sent to the hospital because of worsening kidney function and hyponatremia. Problem list * STEVE and top of CKD * Hyponatremia * Atrial fibrillation * HFpEF * CAD * HTN * COPD * Hypothyroidism * Insulin-dependent diabetes mellitus * SUSIE * Depression * Chronic back pain secondary to spinal stenosis Plan * Admit to telemetry floor * For STEVE on CKD * Hold all nephrotoxic medication including NSAID, bumex and metolazone * Repeat renal function in the morning * Send for urine electrolytes and osmolarity * Nephrology consult * For A. fib Continue carvedilol and the liquids * For DM insulin, fingerstick because level, low carb diets * For HF hold PARISH cont' BB, daily weight, strict I/Os * For CAD cont' ASA and statin * For HTN cont' amlodipine and hydralazine but hold lisinopril * For hypothyroidism check TSH for now continue Synthroid 150 * For COPD TRC/Nebs, currently stable * For SUSIE continue CPAP * For depression continue cymbalta and lexapro -Diabetic diet -DVT ppx-on eliquis -Full code Fabien Carpio 09/10/17 0459: Attending MD Review Statement Attending Statement Attending MD Statement: examined this patient, discuss w/resident/PA/STACKER ATTENDANT, agreed w/resident/PA/STACKER ATTENDANT, reviewed EMR data (avail), reviewed images, amended to note Attending Assessment/Plan: CC: Elevated creatinine PMH: CAD S/P 2 stents for your back, HTN, HLD, DM, CKD, HFpEF, anemia, asthma, SUSIE on CPAP, spinal stenosis S/P nerve stimulator, parathyroidectomy, paroxysmal A. fib Patient was admitted from August 10- for acute on chronic heart failure, new onset atrial fibrillation. Patient was discharged on Bumex daily and metolazone twice weekly. After discharge patient significantly improved symptomatically, checking her daily weights, no respiratory symptoms, markedly decreased extremity swelling. Yesterday she followed up with heart failure clinic for the first time after discharge and was given IV Lasix, iron and Procrit. Labs were drawn at that time and she received a call today that her creatinine is elevated and was suggested to go to ER. Patient has chronic cough, chronic low back pain expecting L4-L5 fusion surgery end of this month otherwise does not endorse any complaints. Vitals: Afebrile, pulse in 60s, RR 16, blood pressure 139/57, saturating well on room air. On exam: A O 3, cooperative, no acute distress, neck supple, JVD normal, no lymphadenopathy, mucosa moist, no focal neurological deficit, +1 - + 2 leg edema , no obvious skin rashes or inflammation CVS: S1-S2, RRR. RS: Bilateral dependent crackles L>R . Abdomen: Soft, NT, ND, bowel sounds present. CXR: Stable enlarged cardiac silhouette and stable degree of vascular congestion Assessment and plan 72-year-old female with extensive past medical history was suggested to come to ER for elevated creatinine. Patient was admitted from August 10- for acute on chronic heart failure, new onset atrial fibrillation. Patient was discharged on Bumex daily and metolazone twice weekly. After discharge patient significantly improved symptomatically, checking her daily weights, no respiratory symptoms, markedly decreased extremity swelling. Yesterday she followed up with heart failure clinic for the first time after discharge and was given IV Lasix, iron and Procrit. Labs were drawn at that time and she received a call today that her creatinine is elevated and was suggested to go to ER. Patient has minimum bibasilar crackles left more than right, +2 edema which is not new for her and much better, no respiratory distress otherwise exam unremarkable. Her creatinine increased from 2.7 on August 31 to 4.2. Significantly elevated BUN from 94 to 134. Her sodium dropped from 134 on August 16 to 126 on August 31 and today. Patient has chronic kidney disease which is multifactorial, diabetes, hypertensive and cardiorenal syndrome. It's possible that she has additional kidney injury secondary to diuresis, could be prerenal. We will hold off all diuretic for now and nephrology nephrology in her care for further management. I explained to her that kidney function and fluid balance is critical in her situation. We will observe her on telemetry floor given her extensive cardiac history, heart failure and now that we are holding diuretic, he shouldn't may benefit from gentle hydration but we will defer that to naval aircrewman helicopter at this point. Hyponatremia appears secondary to volume overload and heart failure as well. + Acute kidney injury on chronic kidney disease + Hyponatremia + History of CAD S/P 2 stents for your back, HTN, HLD, DM, CKD, HFpEF, anemia, asthma, SUSIE on CPAP, spinal stenosis S/P nerve stimulator, parathyroidectomy, paroxysmal A. fib - Admit to telemetry - Discontinue bumetanide, metolazone for now - Daily I's and O's - Watch for volume status - Nephrology consult - Urine osmolality, serum osmolality, urine creatinine, and electrolytes - Repeat labs in a.m. - Continue sliding scale insulin, and rest of her home medications, hold ACEI
--- NOTE | 2017-09-10 05:01 | Admission Certification ---
Admission Certification Certification Statement - As attending physician, I certify that at the time of - admission, based on clinical presentation, severity of - symptoms, need for further diagnostic testing and - therapeutic interventions, and risk of adverse outcomes - without in-hospital treatment, in my clinical assessment, - this patient requires an acute hospital stay for a minimum - of two nights or longer. I have also considered psychsocial - factors such as support system, advanced age, financial - issues, cognitive issues, and failed out-patient treatments, - past re-admission history, safety of patient, and lack of - compliance as applicable. Specific rationale supporting this admission is: Acute kidney injury on chronic kidney disease, hyponatremia
[2017-09-10 06:32] VITALS: BP 134/56
--- NOTE | 2017-09-10 07:15 | PN- Housestaff ---
[facility] Subjective Follow-up For: Hypovolemic hyponatremia Acute on chronic kidney injury Tele-Events Since Last Visit: Sinus rhythm with heart rate 6369 with PVCs Subjective: No overnight events. Patient remained afebrile. Seen and examined this morning. She is using CPAP at nighttime. Patient denied any chest, short of breath, nausea, vomiting, fever, fever, abdominal and dysuria. Review of Systems Constitutional: Reports: no symptoms. EENTM: Reports: no symptoms. Cardiovascular: Denies: chest pain, orthopena, palpitations. Respiratory: Denies: cough, short of breath. Gastrointestinal: Denies: abdominal pain, diarrhea, bowel incontinence, nausea. Genitourinary: Reports: no symptoms. Musculoskeletal: Reports: no symptoms. Neurological/Psychological: Reports: no symptoms. Objective Last 24 Hrs of Vital Signs/I&O Vital Signs Date Time Temp Pulse Resp B/P B/P Pulse O2 O2 Flow FiO2 Mean Ox Delivery Rate / 0800 CPAP / 0632 98.7 66 18 134/56 93 CPAP / 0310 64 92 / 0020 67 93 04/06 0000 CPAP 04/05 2202 98.8 68 18 153/67 94 Room Air 04/05 2200 Room Air 04/05 2049 98.4 66 20 162/68 93 Room Air 04/05 1544 97.2 64 16 139/57 Intake & Output / 1600 04/06 0800 04/06 0000 Intake Total 200 Output Total Balance 200 Intake, Oral 200 Patient 188 lb Weight Weight Bed scale Measurement Method Physical Exam General Appearance: Alert, Oriented X3, Cooperative, No Acute Distress Skin: No Rashes Skin Temp/Moisture Exam: Warm/Dry Sepsis Skin Exam (color): Normal for Ethnicity HEENT: Atraumatic, PERRLA, EOMI Neck: Supple Cardiovascular: Normal S1, Normal S2 Lungs: Clear to Auscultation Abdomen: Soft, No Tenderness Neurological: Normal Speech, Strength at 5/5 X4 Ext, Normal Tone, Sensation Intact Extremities: No Edema Assessment/Plan Assessment: 72 year old female with past medical history significant for coronary artery disease s/p stents, hypertension, diabetes, HFpEF, CKD stage IV, COPD recently hospitalization with CHF exacerbation from 08/10/2017-08/16/2017 was sent in for management of acute kidney injury during outpatient diuresis. We are following the patient on tele floor for following problems: Acute on chronic kidney injury: -Patient baseline creatinine level is 2.6, came in with Cr 4.2 -Probably due to dehydration and use of diuretics. -We are holding her Lasix, Bumex and metolazone -Avoid nephrotoxins medications -Monitor input and output -We will monitor BP -Nephrology consult Hyponatremia: -Hypervolemic hyponatremia -Serum sodium 126, previously in 130s on discharge last month -Check serum osmoles and urinary electrolytes -Likely related to aggressive diuresis and congestive heart failure History of atrial fibrillation: -Continue eliquis and carvedilol -Goal HR <110 History of diastolic CHF: -Diuretics and ACEi on hold because of STEVE -Continue beta blockade -Check daily weights -Strict I/O's -Appears volume overloaded but intravascularly depleted from aggressive diuresis History of CAD: -Continue aspirin, beta blockers History of HTN: -Continue norvasc and hydralazine -Hold ARB -Hold diuretics History of DM: -Diabetic diet -Hold oral hypoglycemics -Accuchecks TIDAC/HS -Levemir 8 units SC BID, on 26units daily at home -Novolog insulin sliding scale History of Hypothyroidism: -Continue synthroid 150mcg -TSH elevated on previous admission History of COPD/SUSIE: -TRC evaluation -Currently saturating well on room air -CPAP set up 12cm H2O History of Depression: -Continue cymbalta and lexapro H/O Spinal stenosis: -Ofirmev and if required opioids for analgesia -Avoid NSAIDs with STEVE -Scheduled for spinal fusion at the end of the month DVT ppx: -Mechanical and patient is already on on eliquis CODE STATUS Full code Problem List: 1. Acute on chronic renal failure 2. Hyponatremia Pain Ratin Pain Location: none Pain Goal: Remain pain free Pain Plan: pain pathway Tomorrow's Labs & Rationales: Harrison Foote MD 09/10/17 1054: Attending MD Review Statement Attending Statement Attending MD Statement: examined this patient, discuss w/resident/PA/WELL BLOWER, agreed w/resident/PA/WELL BLOWER, reviewed EMR data (avail) Attending Assessment/Plan: 72F PMH CAD S/P 2 years ago, HTN, HLD, DM, CKD, HFpEF, anemia, asthma, SUSIE on CPAP, spinal stenosis S/P nerve stimulator, parathyroidectomy, paroxysmal A. fib admitted for acute on chronic kidney injury. Patient takes daily Bumex and twice a week Metolazone for CHF and has been doing extremely well. She went to CHF clinic where she was given Lasix 80mg IV 1 day prior to admission. Her renal labs were checked and her creatinine was found to be significantly elevated. Patient is asymptomatic and feels well without complaints. Labs show sodium 126, creatinine 4.6, BUN 120, Phos 6.8. 1. Acute on chronic kidney injury 2. Uremia 3. Hyperphosphatemia 4. Hyponatremia Plan - Continue on telemetry - Cardiology consult - Hold diuretics - Monitor renal function - If worsening or symptomatic obtain nephrology consult - Continue remaining home medications - DVT PPx
[2017-09-10 08:09] LABS: ABSOLUTE BASOPHIL COUNT 0.1 /CUMM (0.0-0.2); ABSOLUTE EOSINOPHIL COUNT 0.6 /CUMM (0.0-0.7); ABSOLUTE GRANULOCYTE CT 5.7 /CUMM (1.4-6.5); ABSOLUTE LYMPH COUNT 1.8 /CUMM (1.2-3.4); ABSOLUTE MONOCYTE COUNT 1.1 /CUMM (0.10-0.60); BASOPHIL % 0.7 % (0.0-2.0); EOSINOPHIL % 6.6 % (0-5); GRANULOCYTE % 61.3 % (42.2-75.2); HEMATOCRIT 29.5 % (37-47); MEAN CORPUSCULAR HGB 28.7 PG (27.0-31.0); MEAN CORPUSCULAR VOLUME 84.5 FL (81.0-99.0); MEAN PLATELET VOLUME 9.5 FL (7.4-10.4); PLATELET COUNT 223 /CUMM (130-400); RBC DISTRIBUTION WIDTH 13.9 % (11.5-14.5); RED BLOOD CELL CT 3.49 /CUMM (4.20-5.40); WHITE BLOOD CELL COUNT 9.3 /CUMM (4.8-10.8)
[2017-09-10 08:30] VITALS: BP 140/62
[2017-09-10 15:00] VITALS: BP 128/60
--- NOTE | 2017-09-10 17:50 | Cons- Nephrology ---
General Information and HPI Consulting Request Date of Consult: 09/10/17 Requested By: Harrison Michelle MD Reason for Consult: CKD/STEVE, hyponatremia Source of Information: patient, old records Exam Limitations: no limitations History of Present Illness: The patient is a 72-year-old woman with known chronic kidney disease stage IV secondary to a combination of hypertensive nephrosclerosis/diabetic nephropathy/ cardiorenal syndrome. Her baseline creatinine has recently been in the low 2's with a BUN of about 100. She attends CHF clinic where she recently received a dose of IV Lasix. Her outpatient medication regimen includes [place] aminata at night and isosorbide. She now comes in because outpatient blood work showed a creatinine up to 4.2, BUN of 134 and a low serum sodium of 123-126. She denies any excessive intake of fluids nor has there been any change in her medications recently. This been no nausea vomiting or diarrhea. In fact, she has had no new symptoms recently and her breathing has been relatively good. Since admission her creatinine has hardly changed at 4.3 while her serum sodium has come up slightly to 128. She continues to be relatively asymptomatic. Past medical history is positive for CKD as noted, congestive heart failure with preserved ejection fraction, hypertension, hyperlipidemia, coronary artery disease status post PCI with stenting 2 to the left circumflex in 2013, type 2 diabetes mellitus without retinopathy neuropathy or foot ulcers, COPD, obstructive sleep apnea on CPAP, osteoarthritis, parathyroidectomy, hypothyroidism, shingles and spinal stenosis for which she is scheduled for surgery at the end of this month. Outpatient medications: See below Allergies Jasbir inhibitors, povidone-iodine, Betadine Family history is negative for kidney disease and her parents. One sister is with pancreatic CA Social history and lives with her of over 50 years, has 3 children, no history of alcohol or drug abuse and no history of cigarette smoking. 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 Allergies/Medications Allergies: Coded Allergies: povidone-iodine (From BETADINE) (RASH 04/11/17) ITCH PER ANTIBIOTIC ORDER SHEET OF 12/04/16 (SJS) soap (From BETADINE) (RASH 04/11/17) JASBIR Inhibitors (Mild, COUGH 04/11/17) Home Med List: Acetaminophen With Codeine (Acetaminophen-Cod #3 Tablet) 300 MG-30 MG TABLET 1 TAB PO Q6P PRN PAIN (Reported) Albuterol Sulfate (Proair Hfa) 90 MCG HFA.AER.AD 1 PUF INH AD PRN ASTHMA ( Reported) Alpha Lipoic Acid 300 MG CAPSULE 2 CAP PO BID NEUROPATHIC PAIN (Reported) Amlodipine Besylate (Norvasc) 10 MG TABLET 1 TAB PO DAILY HTN . Apixaban (Eliquis) 2.5 MG TABLET 2.5 MG PO BID Atrial Fibrillation Aspirin (Ecotrin*) 81 MG TABLET.DR 1 TAB PO QPM HEART/BLOOD (Reported) Azilsartan Medoxomil (Edarbi) 80 MG TABLET 1 TAB PO DAILY BP (Reported) Bumetanide 1 MG TABLET 4 TAB PO BID WATER RETENTION (Reported) Carvedilol (Coreg) 25 MG TABLET 1 TAB PO BID HTN (Reported) Cholecalciferol (Vitamin D3) (Vitamin D) 1,000 UNIT TABLET 2 TAB PO DAILY VITAMIN SUPPORT (Reported) Difluprednate (Durezol) 0.05 % DROPS 1 GTT OD TID RIGHT EYE (Reported) Doxazosin Mesylate (Cardura) 2 MG TABLET 1 TAB PO BID BP (Reported) Dulaglutide (Trulicity) 0.75 MG/0.5 ML PEN.INJCTR 0.5 MG SC QTUES DM ( Reported) Duloxetine Hydrochloride (Cymbalta) 30 MG CAPSULE.DR 1 CAP PO DAILY NERVE PAIN (Reported) Epinastine HCl 0.05 % DROPS 1 DROP OU BID ALLERGIES (Reported) Escitalopram Oxalate 10 MG TABLET 1 TAB PO DAILY MENTAL HEALTH (Reported) Ferrous Sulfate 325 MG (65 MG IRON) TABLET.DR 1 TAB PO DAILY ANEMIA Fluticasone/Salmeterol (Advair 250-50 Diskus) 1 EACH BLST.W.DEV 1 PUF INH BID ASTHMA (Reported) Hydralazine HCl 100 MG TABLET 1 TAB PO TID BP (Reported) Insulin Aspart (Novolog) 100 UNIT/ML VIAL DM (Reported) Insulin Detemir (Levemir) 100 UNIT/ML VIAL 26 UNITS SC QPM DM Iron Sucrose Complex (Venofer) 200 MG IRON/10 ML VIAL 200 MG IV EOD ANEMIA DUE TO CKD Isosorbide Mononitrate (Isosorbide Mononitrate ER) 60 MG TAB.ER.24H 1 TAB PO DAILY HEART (Reported) Levothyroxine Sodium 150 MCG TABLET 1 TAB PO DAILY Hypothyroidism . Metolazone 2.5 MG TABLET 1 TAB PO TUESFRI DIURETIC (Reported) [place]-3 Fatty Acids/Fish Oil (Fish Oil 1,000 MG Capsule) 340 MG-1,000 MG CAPSULE 1 CAP PO BID SUPPLEMENT (Reported) Rosuvastatin Calcium (Crestor) 20 MG TABLET 1 TAB PO QPM HYPERCHOLESTROLEMIA (Reported) Review of Systems Review of Systems: Gen.: Appetite good, no weight loss or weight gain Skin: No rash or jaundice HEENT: No visual or hearing disturbances, no discharge Cardiopulmonary: No shortness of breath, chest pain; she does have a long- standing chronic cough GI: No nausea, vomiting, abdominal pain, diarrhea : No dysuria, hematuria or other symptoms referable to the urinary tract Musculoskeletal: No arthralgias, arthritis, myalgias, weakness Neuro: No weakness, altered mental status, paresthesias Past History Travel History Traveled to [place] past 21 day No Medical History Blood Transfusion Hx: Yes Neurological: vertigo EENT: SLEEP APNEA Cardiovascular: CHF, hypertension Respiratory: asthma, pneumonia, SLEEP APNEA NOCTURNAL CPAP Gastrointestinal: NONE Hepatic: NONE Renal: CKD 3 Musculoskeletal: SPINAL STENOSIS 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 SISTER (Pancreatic cancer). Psychosocial History Where Do You Live? Home Who Do You Live With? spouse Services at Home: Nursing Primary Language: Pakistani Smoking Status: Never Smoked ETOH Use: occasional use Illicit Drug Use: denies illicit drug use Functional Ability ADLs Independent: dressing, eating, toileting, bathing. Ambulation: cane, Patient used a cane when outside the house but ambulates independently indoors. IADLs Independent: finances, food prep, telephone, medication admin. Needs Assist: shopping, housework, transportation. Exam & Diagnostic Data Vital Signs and I&O Vital Signs Date Time Temp Pulse Resp B/P B/P Pulse O2 O2 Flow FiO2 Mean Ox Delivery Rate 09/10 1550 76 128/60 09/10 1500 97.1 76 20 128/60 93 09/10 0834 65 140/62 09/10 0834 65 140/62 04/06 0834 65 140/62 04/06 0834 65 140/62 /06 0830 65 140/62 /06 0820 93 / 0805 93 Nasal 1.0L Cannula 09/10 0800 CPAP / 0632 98.7 66 18 134/56 93 CPAP / 0310 64 92 04/ 0020 67 93 04/ 0000 CPAP 09/09 2202 98.8 68 18 153/67 94 Room Air 09/09 2200 Room Air 09/09 2049 98.4 66 20 162/68 93 Room Air Intake & Output 09/10 1600 09/10 0400 09/09 04009/08 1600 09/08 0400 Intake Total 660 200 Output Total 700 Balance -40 200 Intake, Oral 660 200 Output, Urine 700 Patient 188 lb 188 lb 184 lb Weight Weight Bed scale Reported by Patient Measurement Method Physical Exam: General: Well-developed white female in NAD Skin: No rash or jaundice HEENT: Conjunctivae pink, sclerae anicteric, mucous membranes moist Neck: Without masses or thyromegaly, no supraclavicular or cervical adenopathy Chest: Few bibasilar rales Heart: Regular rate and rhythm without S3 or rub Abdomen: Soft and nontender without palpable masses or organomegaly Back: Trace to 1+ presacral edema Extremities: Without cyanosis, trace edema Neuro: Awake and alert, no focal findings, no asterixis or myoclonus Assessment/Plan Assessment/Recommendations Assessment: 72-year-old woman with comorbidities as noted above including CKD stage IV secondary to diabetes mellitus, hypertension and cardiorenal syndrome for which she goes to the CHF clinic, now admitted with worsening renal function manifested by a markedly elevated BUN and a doubling of her serum creatinine as well as moderate hyponatremia. Despite these findings, she has been relatively asymptomatic. It is certainly conceivable that this is related to outpatient parenteral diuretic therapy to control her CHF (normal LVEF). It is probably worth a trial of gentle rehydration with isotonic saline while holding diuretics and then reassessing. Recommendations: 1. IV normal saline at 50 mL per hour 1 L only 2. Monitor closely for development of respiratory symptoms 3. Limit by mouth fluids to 1000 mL per day 4. Monitor intake and output, weights, renal function and electrolytes daily Thank you. We will follow along with you.
--- NOTE | 2017-09-10 21:03 | Cons- Cardiology ---
General Information and HPI Consulting Request Date of Consult: 09/10/17 Requested By: Harrison Michelle MD Reason for Consult: HFpEF, PAF, ARF Source of Information: patient, family Exam Limitations: no limitations History of Present Illness: I was asked by Dr. Michelle to evaluate patient for heart failure, ARF. 71 year old female with h/o CAD, s/p 2 LCX stents in 2013, difficult to control HTN, HFpEF, DM, CRI, anemia, COPD. Patient was hospitalized in April and May for pneumonia and flu, complicated by HFpEF. She was rehospitalized in mid July 2017 with exacerabation of diastolic congestive heart failure and subsequently in August with another episode of heart failure. She was discharged home on bumetanide 4 mg bid and metolazone 2.5 mg twice a week. She developed episodes of PAF last hospitalization and was started on low dose Eliquis. I saw her in the office 2 weeks ago, she was doing well, euvolemic, weight down. Over the past 5 days she gained 5 lbs. She developed mild edema but breathing was OK. She went to heart failure clinic on Wednesday and received Lasix 80 mg iv. Blood work subsequently showed elevated BUN, creatinine doubled and sodium was 123. She was recommended by publishing director to present to ER. She reports no dyspnea, PND, chest pain or palpitations. She just felt fatigued. Allergies/Medications Allergies: Coded Allergies: povidone-iodine (From BETADINE) (RASH 04/11/17) ITCH PER ANTIBIOTIC ORDER SHEET OF 12/04/16 (SJS) soap (From BETADINE) (RASH 04/11/17) [place] Inhibitors (Mild, COUGH 04/11/17) Home Med List: Acetaminophen With Codeine (Acetaminophen-Cod #3 Tablet) 300 MG-30 MG TABLET 1 TAB PO Q6P PRN PAIN (Reported) Albuterol Sulfate (Proair Hfa) 90 MCG HFA.AER.AD 1 PUF INH AD PRN ASTHMA ( Reported) Alpha Lipoic Acid 300 MG CAPSULE 2 CAP PO BID NEUROPATHIC PAIN (Reported) Amlodipine Besylate (Norvasc) 10 MG TABLET 1 TAB PO DAILY HTN . Apixaban (Eliquis) 2.5 MG TABLET 2.5 MG PO BID Atrial Fibrillation Aspirin (Ecotrin*) 81 MG TABLET.DR 1 TAB PO QPM HEART/BLOOD (Reported) Azilsartan Medoxomil (Edarbi) 80 MG TABLET 1 TAB PO DAILY BP (Reported) Bumetanide 1 MG TABLET 4 TAB PO BID WATER RETENTION (Reported) Carvedilol (Coreg) 25 MG TABLET 1 TAB PO BID HTN (Reported) Cholecalciferol (Vitamin D3) (Vitamin D) 1,000 UNIT TABLET 2 TAB PO DAILY VITAMIN SUPPORT (Reported) Difluprednate (Durezol) 0.05 % DROPS 1 GTT OD TID RIGHT EYE (Reported) Doxazosin Mesylate (Cardura) 2 MG TABLET 1 TAB PO BID BP (Reported) Dulaglutide (Trulicity) 0.75 MG/0.5 ML PEN.INJCTR 0.5 MG SC QTUES DM ( Reported) Duloxetine Hydrochloride (Cymbalta) 30 MG CAPSULE.DR 1 CAP PO DAILY NERVE PAIN (Reported) Epinastine HCl 0.05 % DROPS 1 DROP OU BID ALLERGIES (Reported) Escitalopram Oxalate 10 MG TABLET 1 TAB PO DAILY MENTAL HEALTH (Reported) Ferrous Sulfate 325 MG (65 MG IRON) TABLET.DR 1 TAB PO DAILY ANEMIA Fluticasone/Salmeterol (Advair 250-50 Diskus) 1 EACH BLST.W.DEV 1 PUF INH BID ASTHMA (Reported) Hydralazine HCl 100 MG TABLET 1 TAB PO TID BP (Reported) Insulin Aspart (Novolog) 100 UNIT/ML VIAL DM (Reported) Insulin Detemir (Levemir) 100 UNIT/ML VIAL 26 UNITS SC QPM DM Iron Sucrose Complex (Venofer) 200 MG IRON/10 ML VIAL 200 MG IV EOD ANEMIA DUE TO CKD Isosorbide Mononitrate (Isosorbide Mononitrate ER) 60 MG TAB.ER.24H 1 TAB PO DAILY HEART (Reported) Levothyroxine Sodium 150 MCG TABLET 1 TAB PO DAILY Hypothyroidism . Metolazone 2.5 MG TABLET 1 TAB PO TUESFRI DIURETIC (Reported) [place]-3 Fatty Acids/Fish Oil (Fish Oil 1,000 MG Capsule) 340 MG-1,000 MG CAPSULE 1 CAP PO BID SUPPLEMENT (Reported) Rosuvastatin Calcium (Crestor) 20 MG TABLET 1 TAB PO QPM HYPERCHOLESTROLEMIA (Reported) Current Medications: Current Medications Sig/Larissa Start time Last Medication Dose Route Stop Time Status Admin Acetaminophen/ 0 .STK-MED ONE 04/05 2115 DC Codeine Phosphate PO Acetaminophen/ 1 TAB Q6P PRN 09/09 2100 AC 09/09 Codeine Phosphate PO 2114 Albuterol Sulfate 1 PUF Q4P PRN 09/10 0200 AC INH Amlodipine Besylate 10 MG DAILY 09/10 1000 AC 09/10 PO 0834 Apixaban 2.5 MG BID 09/10 1000 AC 09/10 PO 0835 Aspirin Buffered 81 MG QPM 09/10 2200 AC PO Atorvastatin Calcium 40 MG 1700 09/10 1700 AC 09/10 PO 1550 Budesonide/ 2 PUF BID 09/10 1000 AC 09/10 Formoterol Fumarate INH 0835 Carvedilol 25 MG BID 09/10 1000 AC 09/10 PO 0834 Doxazosin Mesylate 2 MG BID 09/10 1000 AC 09/10 PO 0834 Duloxetine HCl 30 MG DAILY 09/10 1000 AC 09/10 PO 0834 Escitalopram Oxalate 10 MG DAILY 09/10 1000 AC 09/10 PO 0834 Ferrous Sulfate 325 MG DAILY 09/10 1000 AC 09/10 PO 0834 Hydralazine HCl 100 MG TID 09/10 1000 AC 09/10 PO 1550 Insulin Aspart 0 TIDAC 09/10 0800 AC SC Insulin Detemir 8 UNITS BID 09/10 1000 AC 09/10 SC 0835 Isosorbide 60 MG DAILY 09/10 1000 AC 09/10 Mononitrate PO 0834 Levothyroxine Sodium 0.15 MG DAILY AC 09/10 0700 AC 09/10 PO 0557 Loratadine 10 MG DAILY 09/10 2000 AC PO Patient Medication 1 ED ONE ONE 09/10 1515 DC Teaching ED 09/10 1516 Sodium Chloride 1,000 ML Q20H 09/10 1500 AC 09/10 IV 09/11 1059 1550 Review of Systems Review of Systems Constitutional: Reports: malaise. Denies: no symptoms, see HPI, chills, diaphoresis, fever, weakness, unexplained weight loss. EENTM: Denies: no symptoms, see HPI, blurred vision, double vision, visual changes, eye pain, eye drainage, eye tearing, icterus, ear discharge, ear pain, ear redness, hearing changes, nasal congestion, epistaxis, nasal pain, throat pain, throat swelling, mouth pain, tooth pain. Cardiovascular: Denies: no symptoms, see HPI, chest pain, edema, orthopena, palpitations, peripheral edema, syncope. Respiratory: Denies: no symptoms, see HPI, cough, hemoptysis, orthopnea, short of breath, sputum production, stridor, wheezing. GI: Denies: no symptoms, see HPI, abdominal pain, bloating, constipation, diarrhea, distention, bowel incontinence, melena, nausea, bloody stool, changes in stool, vomiting, steatorrhea. Genitourinary: Denies: no symptoms, see HPI, discharge, dysuria, frequency, hematuria, hesitation, nocturia, pain, urgency. Musculoskeletal: Denies: no symptoms, see HPI, back pain, gout, joint pain, joint swelling, muscle pain, muscle stiffness, neck pain. Skin: Denies: no symptoms, see HPI, cysts, change in skin color, change in hair/nails, dryness, erythema, jaundice, lesions, lymphangitis, lumps, moles, rash. Neurological/Psychological: Denies: no symptoms, see HPI, anxiety, ataxia, cognitive dysfunction, confusion, depressed, dementia, emotional problems, headache, numbness, paresthesia, pre- existing deficit, petit mal seizures, tingling, tremors, tonic-clonic seizures, unable to move lower ext, unable to move upper ext, weakness, other. Hematologic/Endocrine: Denies: no symptoms, see HPI, bruising, bleeding, polyuria, polydipsia, other. Immunologic/Allergic: Denies: no symptoms, see HPI, splenectomy, HIV/AIDS, lymphadenopathy, other. 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 SISTER (Pancreatic cancer). Psychosocial History Where Do You Live? Home Who Do You Live With? spouse Services at Home: Nursing Primary Language: Serbian Smoking Status: Never Smoked ETOH Use: occasional use Illicit Drug Use: denies illicit drug use Functional Ability ADLs Independent: dressing, eating, toileting, bathing. Ambulation: cane, Patient used a cane when outside the house but ambulates independently indoors. IADLs Independent: finances, food prep, telephone, medication admin. Needs Assist: shopping, housework, transportation. Exam & Diagnostic Data Vital Signs and I&O Vital Signs Date Time Temp Pulse Resp B/P B/P Pulse O2 O2 Flow FiO2 Mean Ox Delivery Rate 09/10 1550 76 128/60 /06 1500 97.1 76 20 128/60 93 /06 0834 65 140/62 04/06 0834 65 140/62 / 0834 65 140/62 / 0834 65 140/62 /06 0830 65 140/62 / 0820 93 / 0805 93 Nasal 1.0L Cannula 09/10 0800 CPAP 09/10 0632 98.7 66 18 134/56 93 CPAP / 0310 64 92 / 0020 67 93 04/ 0000 CPAP 09/09 2202 98.8 68 18 153/67 94 Room Air 09/09 2200 Room Air Intake & Output 09/10 1600 09/10 0800 04/06 0000 04/ 1600 09/09 0800 04/05 0000 Intake Total 660 200 Output Total 700 Balance -40 200 Intake, Oral 660 200 Output, Urine 700 Patient 188 lb 188 lb 184 lb Weight Weight Bed scale Reported by Patient Measurement Method Physical Exam: No acute distress Skin-no rash HEENT-PERRLA Neck-JVP nl, no bruit Lungs-clear bilaterally Heart-S1S2, regular, no murmur Abdomen-soft, not tender, no distended, BS+, no organomegaly, no masses Extremities-no edema, 2+ pulses, no cyanosis Neuro-non focal, alert on oriented Labs/Jose Alejandro Results: Laboratory Tests 09/10 09/09 0643 1835 Chemistry Sodium (137 - 145 mmol/L) 128 L Potassium (3.5 - 5.1 mmol/L) 4.3 Chloride (98 - 107 mmol/L) 84 L Carbon Dioxide (22 - 30 mmol/L) 23 Anion Gap (5 - 16) 21 H BUN (7 - 17 mg/dL) 135 *H Creatinine (0.5 - 1.0 mg/dL) 4.3 H Estimated GFR (>60 ml/min) 10 L BUN/Creatinine Ratio (7 - 25 %) 31.4 H Phosphorus (2.5 - 4.5 mg/dL) 6.9 H Magnesium (1.6 - 2.3 mg/dL) 2.4 H Fud-[id number] Pept (<125 pg/mL) 35998 H Hematology CBC w Diff NO MAN DIFF REQ NO MAN DIFF REQ WBC (4.8 - 10.8 /CUMM) 9.3 9.8 RBC (4.20 - 5.40 /CUMM) 3.49 L 3.83 L Hgb (12.0 - 16.0 G/DL) 10.0 L 10.9 L Hct (37 - 47 %) 29.5 L 32.5 L MCV (81.0 - 99.0 FL) 84.5 84.8 MCH (27.0 - 31.0 PG) 28.7 28.5 MCHC (33.0 - 37.0 G/DL) 34.0 33.6 RDW (11.5 - 14.5 %) 13.9 14.6 H Plt Count (130 - 400 /CUMM) 223 250 MPV (7.4 - 10.4 FL) 9.5 9.3 Gran % (42.2 - 75.2 %) 61.3 65.0 Lymphocytes % (20.5 - 51.1 %) 19.4 L 17.3 L Monocytes % (1.7 - 9.3 %) 12.0 H 11.7 H Eosinophils % (0 - 5 %) 6.6 H 5.5 H Basophils % (0.0 - 2.0 %) 0.7 0.5 Absolute Granulocytes (1.4 - 6.5 /CUMM) 5.7 6.4 Absolute Lymphocytes (1.2 - 3.4 /CUMM) 1.8 1.7 Absolute Monocytes (0.10 - 0.60 /CUMM) 1.1 H 1.2 H Absolute Eosinophils (0.0 - 0.7 /CUMM) 0.6 0.5 Absolute Basophils (0.0 - 0.2 /CUMM) 0.1 0 04/05 1825 Chemistry Sodium (137 - 145 mmol/L) 126 L Potassium (3.5 - 5.1 mmol/L) 4.5 Chloride (98 - 107 mmol/L) 81 L Carbon Dioxide (22 - 30 mmol/L) 23 Anion Gap (5 - 16) 21 H BUN (7 - 17 mg/dL) 134 *H Creatinine (0.5 - 1.0 mg/dL) 4.2 H Estimated GFR (>60 ml/min) 10 L BUN/Creatinine Ratio (7 - 25 %) 31.9 H Glucose (65 - 99 mg/dL) 111 H Serum Osmolality (285 - 295 MOSM/KG) 317 H Calcium (8.4 - 10.2 mg/dL) 9.8 Magnesium (1.6 - 2.3 mg/dL) 2.5 H Total Bilirubin (0.2 - 1.3 mg/dL) 0.9 AST (14 - 36 U/L) 12 L ALT (9 - 52 U/L) 18 Alkaline Phosphatase (<127 U/L) 84 Troponin I (< 0.11 ng/ml) < 0.01 Total Protein (6.3 - 8.2 g/dL) 7.7 Albumin (3.5 - 5.0 g/dL) 4.6 Globulin (1.9 - 4.2 gm/dL) 3.1 Albumin/Globulin Ratio (1.1 - 2.2 %) 1.5 Diagnostic Data EKG Results SR, PVC CXR Results No CHF or acute infiltrate Assessment/Plan Assessment/Plan 71 year old female with h/o CAD, s/p 2 LCX stents in 2013, difficult to control HTN, PAF, HFpEF, DM, CKD 4, anemia, COPD, recurrent pneumonia, HFpEF presents with STEVE on CRI, hyponatremia. Etiology likey due to volume contraction due to combination of high potency diuretics (including metolazone, which was started last admission) and use of ARB-Edarbi. We have really very difficult zaida to manage her volume status in the hospital and as outpatient. She currently has evidence of intravascular volume depletion and I agree to gently rehydrate her with NSx1L. She remains in normal sinus rhythm. Her BP is reasonably well controlled. Plan: hold diuretics iv fluids as per renal hold edarbi continue other BP medications continue Eliquis and ASA when her renal function is improved, we will discharge her probably on bumetanide only 3 mg bid Consult Acknowledgment - Thank you for your consult request.
[2017-09-10 22:30] VITALS: BP 132/68
[2017-09-11 06:56] VITALS: BP 130/50
--- NOTE | 2017-09-11 08:44 | PN- Housestaff ---
BhupinderAura Steven Benites 09/11/17 0844: Subjective Follow-up For: per problem list in AP Subjective: No overnight event. Patient was resting under RA comfortably and without specific complaint. Denied SOB/CP/Ab pain/headache/lightheadedness. Review of Systems Constitutional: Reports: see HPI. Objective Last 24 Hrs of Vital Signs/I&O Vital Signs Date Time Temp Pulse Resp B/P B/P Pulse O2 O2 Flow FiO2 Mean Ox Delivery Rate 09/11 0809 60 130/50 / 0807 60 130/50 04/ 0806 60 130/50 / 0805 60 130/50 / 0656 97.7 60 20 130/50 92 CPAP / 0031 63 93 / 2230 98.5 65 20 132/68 93 Room Air / 2230 65 93 04/06 2221 60 132/60 04/06 2220 65 132/60 /06 1550 76 128/60 04/06 1500 97.1 76 20 128/60 93 Intake & Output 09/11 1600 09/11 0800 09/11 0000 Intake Total 200 600 Output Total 200 600 Balance 0 0 Intake, IV 360 Intake, Oral 200 240 Output, Urine 200 600 Patient 66.678 kg Weight Physical Exam General Appearance: Alert, Oriented X3, Cooperative, No Acute Distress Cardiovascular: Regular Rate Lungs: Normal Air Movement, coarse breath soung at BLE lung bases however no crackles Abdomen: Normal Bowel Sounds, Soft, No Tenderness Neurological: Normal Speech Extremities: No Cyanosis, No Edema, Normal Pulses Current Medications: Current Medications Sig/Larissa Start time Last Medication Dose Route Stop Time Status Admin Acetaminophen/ 1 TAB Q6P PRN / 2100 AC 04/ Codeine Phosphate PO 2114 Albuterol Sulfate 1 PUF Q4P PRN / 0200 AC INH Amlodipine Besylate 10 MG DAILY / 1000 AC 04 PO 0809 Apixaban 2.5 MG BID / 1000 AC 09/11 PO 0807 Aspirin Buffered 81 MG QPM / 2200 AC 04/ PO 2221 Atorvastatin Calcium 40 MG 1700 04/06 1700 AC 04/ PO 1550 Budesonide/ 2 PUF BID / 1000 AC 09/11 Formoterol Fumarate INH 0811 Carvedilol 25 MG BID 1000 AC 04 PO 0806 Doxazosin Mesylate 2 MG BID 09/10 1000 AC 09/11 PO 0807 Duloxetine HCl 30 MG DAILY 09/10 1000 AC 09/11 PO 08 Escitalopram Oxalate 10 MG DAILY 09/10 1000 AC 09/11 PO 0810 Ferrous Sulfate 325 MG DAILY 09/10 1000 AC 09/11 PO 0806 Hydralazine HCl 100 MG TID 09/10 1000 AC 09/11 PO 0805 Insulin Aspart 0 TIDAC 09/10 0800 AC SC Insulin Detemir 8 UNITS BID 09/10 1000 AC 09/11 SC 0818 Isosorbide 60 MG DAILY 09/10 1000 AC 09/11 Mononitrate PO 08 Levothyroxine Sodium 0.15 MG DAILY AC 09/10 0700 AC 09/11 PO 0609 Loratadine 10 MG DAILY 09/10 2000 AC 09/11 PO 0810 Patient Medication 1 ED ONE ONE 09/10 1515 DC Teaching ED 09/10 1516 Sodium Chloride 1,000 ML Q20H 09/10 1500 DC 09/10 IV 09/11 1059 1550 Last 24 Hrs of Lab/Jose Alejandro Results Last 24 Hrs of Labs/Mics: Laboratory Tests 09/11/17 0650: Anion Gap 16, Estimated GFR 11 L, BUN/Creatinine Ratio 33.5 H Assessment/Plan Assessment: 72 year old female with past medical history significant for coronary artery disease s/p stents, hypertension, diabetes, HFpEF, CKD stage IV, COPD recently hospitalization with CHF exacerbation from 08/10/2017-08/16/2017 was sent in for management of acute kidney injury during outpatient diuresis. We are following the patient on tele floor for following problems: Acute on chronic kidney injury: -Patient baseline creatinine level is 2.6, came in with Cr 4.2 -> 4.0 on latest lab. -Probably due to dehydration and use of diuretics. -We are holding her Lasix, Bumex and metolazone -Avoid nephrotoxins medications -Monitor input and output, 1000cc fluid restriction daily -We will monitor BP -Nephrology consult appreciated Hyponatremia: -Hypervolemic hyponatremia -Serum sodium 126 on latest lab, previously in 130s on discharge last month -Check serum osmoles and urinary electrolytes -Likely related to aggressive diuresis and congestive heart failure History of atrial fibrillation: -Continue eliquis and carvedilol -Goal HR <110 History of diastolic CHF: -Diuretics and ACEi on hold because of STEVE -Continue beta blockade -Check daily weights -Strict I/O's -Appears volume overloaded but intravascularly depleted from aggressive diuresis History of CAD: -Continue aspirin, beta blockers History of HTN: -Continue norvasc and hydralazine -Hold ARB -Hold diuretics History of DM: -Diabetic diet -Hold oral hypoglycemics -Accuchecks TIDAC/HS -Levemir 8 units SC BID, on 26 units daily at home -Novolog insulin sliding scale History of Hypothyroidism: -Continue synthroid 150mcg -TSH elevated on previous admission History of COPD/SUSIE: -TRC evaluation -Currently saturating well on room air -CPAP set up 12cm H2O History of Depression: -Continue cymbalta and lexapro H/O Spinal stenosis: -Ofirmev and if required opioids for analgesia -Avoid NSAIDs with STVEE -Scheduled for spinal fusion at the end of the month DVT ppx: -Mechanical and patient is already on on eliquis CODE STATUS Full code Problem List: 1. Hyponatremia Pain Ratin Pain Location: NA Pain Goal: Remain pain free Pain Plan: see AP Tomorrow's Labs & Rationales: HILDA Ag MD,Artis 09/11/17 1318: Attending MD Review Statement Attending Statement Attending MD Statement: examined this patient, discuss w/resident/PA/FLIGHT CREW TIME CLERK, agreed w/resident/PA/FLIGHT CREW TIME CLERK, reviewed EMR data (avail) Attending Assessment/Plan: Patient is lying comfortably in bed she denies any new complaints overnight. She is coming afebrile with stable vital signs her saturation 92% on room air. Her is at the bedside. Her chest exam is clear. No edema is noted. Abdomen soft nontender. Neuro exam is nonfocal. Labs show creatinine of 4.0 BUN of 134 sodium 126. Assessment plan * Acute and chronic renal failure- continue to hold diuretics; patient status post her 1 L of normal saline yesterday with slight improvement in creatinine. Recheck creatinine tomorrow; provision further nephrology input. * Diabetes- blood glucose well controlled plans to continue current regimen
--- NOTE | 2017-09-11 10:16 | PN- Cardiology ---
Subjective Subjective: No chest pain, dyspnea or palpitations Objective Vital Signs and I&Os Vital Signs Date Time Temp Pulse Resp B/P B/P Pulse O2 O2 Flow FiO2 Mean Ox Delivery Rate 09/11 0809 60 130/50 / 0807 60 130/50 04/ 0806 60 130/50 04/ 0805 60 130/50 / 0656 97.7 60 20 130/50 92 CPAP 09/11 0031 63 93 09/10 2230 98.5 65 20 132/68 93 Room Air 09/10 2230 65 93 / 2221 60 132/60 04/ 2220 65 132/60 09/10 1550 76 128/60 09/10 1500 97.1 76 20 128/60 93 Intake & Output 09/11 1600 09/11 0809/11 0000 09/10 1600 09/10 0800 09/10 0000 Intake Total 200 600 660 200 Output Total 200 600 700 Balance 0 0 -40 200 Intake, IV 360 Intake, Oral 200 240 660 200 Output, Urine 200 600 700 Patient 147 lb 188 lb 188 lb Weight Weight Bed scale Measurement Method Physical Exam: HEENT-PERRLA Neck-JVP nl, no bruit Lungs-clear bilaterally Heart S1S2 regular, no murmur Abdomen-soft, not tender, BS+,no organomegaly Extr-no edema, 2+ pulses Neuro-non focal Current Medications: Current Medications Sig/Larissa Start time Last Medication Dose Route Stop Time Status Admin Acetaminophen/ 1 TAB Q6P PRN 09/09 2100 AC 09/09 Codeine Phosphate PO 2114 Albuterol Sulfate 1 PUF Q4P PRN 09/10 0200 AC INH Amlodipine Besylate 10 MG DAILY 09/10 1000 AC 09/11 PO 0809 Apixaban 2.5 MG BID 09/10 1000 AC 09/11 PO 0807 Aspirin Buffered 81 MG QPM / 2200 AC 09/10 PO 2221 Atorvastatin Calcium 40 MG 1700 /06 1700 AC 09/10 PO 1550 Budesonide/ 2 PUF BID 09/10 1000 AC 09/11 Formoterol Fumarate INH 0811 Carvedilol 25 MG BID 09/10 1000 AC 09/11 PO 0806 Doxazosin Mesylate 2 MG BID 09/10 1000 AC 09/11 PO 0807 Duloxetine HCl 30 MG DAILY 09/10 1000 AC 09/11 PO 0807 Escitalopram Oxalate 10 MG DAILY 09/10 1000 AC 09/11 PO 0810 Ferrous Sulfate 325 MG DAILY 09/10 1000 AC 09/11 PO 0806 Hydralazine HCl 100 MG TID 09/10 1000 AC 09/11 PO 0805 Insulin Aspart 0 TIDAC 09/10 0800 AC SC Insulin Detemir 8 UNITS BID 09/10 1000 AC 09/11 SC 0818 Isosorbide 60 MG DAILY 09/10 1000 AC 09/11 Mononitrate PO 08 Levothyroxine Sodium 0.15 MG DAILY AC 09/10 0700 AC 09/11 PO 0609 Loratadine 10 MG DAILY 09/10 2000 AC 09/11 PO 0810 Patient Medication 1 ED ONE ONE 09/10 1515 DC Teaching ED 09/10 1516 Sodium Chloride 1,000 ML Q20H 09/10 1500 AC 09/10 IV 09/11 1059 1550 Results Last 48 Hrs of Labs/Mics: Laboratory Tests 09/11/17 0650: Anion Gap 16, Estimated GFR 11 L, BUN/Creatinine Ratio 33.5 H 09/10/17 0643: Anion Gap 21 H, Estimated GFR 10 L, BUN/Creatinine Ratio 31.4 H, Phosphorus 6.9 H, Magnesium 2.4 H, Boi-D-Esfbhnklvas Pept 89848 H, CBC w Diff NO MAN DIFF REQ, RBC 3.49 L, MCV 84.5, MCH 28.7, MCHC 34.0, RDW 13.9, MPV 9.5, Gran % 61.3, Lymphocytes % 19.4 L, Monocytes % 12.0 H, Eosinophils % 6.6 H, Basophils % 0.7, Absolute Granulocytes 5.7, Absolute Lymphocytes 1.8, Absolute Monocytes 1.1 H, Absolute Eosinophils 0.6, Absolute Basophils 0.1 09/09/17 1835: CBC w Diff NO MAN DIFF REQ, RBC 3.83 L, MCV 84.8, MCH 28.5, MCHC 33.6, RDW 14.6 H, MPV 9.3, Gran % 65.0, Lymphocytes % 17.3 L, Monocytes % 11.7 H, Eosinophils % 5.5 H, Basophils % 0.5, Absolute Granulocytes 6.4, Absolute Lymphocytes 1.7, Absolute Monocytes 1.2 H, Absolute Eosinophils 0.5, Absolute Basophils 0 04/05/18 1825: Anion Gap 21 H, Estimated GFR 10 L, BUN/Creatinine Ratio 31.9 H, Glucose 111 H, Serum Osmolality 317 H, Calcium 9.8, Magnesium 2.5 H, Total Bilirubin 0.9, AST 12 L, ALT 18, Alkaline Phosphatase 84, Troponin I < 0.01, Total Protein 7.7 , Albumin 4.6, Globulin 3.1, Albumin/Globulin Ratio 1.5 Assessment/Plan Assessment/Plan 71 year old female with h/o CAD, s/p 2 LCX stents in 2013, difficult to control HTN, PAF, HFpEF, DM, CKD 4, anemia, COPD, recurrent pneumonia, HFpEF presents with STEVE on CRI, hyponatremia. Etiology likey due to volume contraction due to combination of high potency diuretics (including metolazone, which was started last admission) and use of ARB-Edarbi. She remains in normal sinus rhythm. Her BP is reasonably well controlled. Creatinine slightly improved with fluids, Na lower Plan: keep off diuretics and ARB continue other BP medications continue Eliquis and ASA when her renal function is improved, we will discharge her probably on bumetanide only 3 mg bid BMP am Continue telemetry? Yes
[2017-09-11 14:15] VITALS: BP 142/60
--- NOTE | 2017-09-11 15:36 | PN- Nephrology ---
Assessment/Plan Nephrology Assessment: 1. STEVE- serum creatinine better 2. Hyponatremia-due to CHF/metolazone use. The usual issue with loop diuretics and sodium is hypernatremia. Decreased sodium is seen with CHF and thiazide type diuretics Suggestion: 1. Maintain fluid restriction 2. at some point will need to resume Loop diuretics Subjective Subjective: patient reclining in bed no dyspnea Objective Vital Signs and I&Os Vital Signs Date Time Temp Pulse Resp B/P B/P Pulse O2 O2 Flow FiO2 Mean Ox Delivery Rate 09/11 1415 98.0 52 20 142/60 92 Room Air 09/11 0809 60 130/50 / 0807 60 130/50 09/11 0806 60 130/50 / 0805 60 130/50 / 0656 97.7 60 20 130/50 92 CPAP 09/11 0031 63 93 09/10 2230 98.5 65 20 132/68 93 Room Air 09/10 2230 65 93 09/10 2221 60 132/60 09/10 2220 65 132/60 09/10 1550 76 128/60 Intake & Output 09/11 1600 09/11 0400 09/10 1600 09/10 0400 09/09 1600 09/09 0400 Intake Total 500 600 660 200 Output Total 325 600 700 Balance 175 0 -40 200 Intake, IV 360 Intake, Oral 500 240 660 200 Output, Urine 325 600 700 Patient 147 lb 188 lb 188 lb 184 lb Weight Weight Bed scale Reported by Patient Measurement Method Physical Exam General Appearance: well developed/nourished, no apparent distress, alert, awake Head: atraumatic, normal appearance Ears, Nose, Throat: normal pharynx Neck: normal inspection, supple Cardiovascular: regular rate/rhythm, edema Abdomen: normal bowel sounds, soft, non-tender, no bruit Back: normal inspection Extremities: swelling Neurologic/Psychiatric: awake, alert, oriented x 3 Current Medications: Current Medications Sig/Larissa Start time Last Medication Dose Route Stop Time Status Admin Acetaminophen/ 1 TAB Q6P PRN 09/09 2100 AC 09/09 Codeine Phosphate PO 211 Albuterol Sulfate 1 PUF Q4P PRN 09/10 0200 AC INH Amlodipine Besylate 10 MG DAILY 09/10 1000 AC 09/11 PO 08 Apixaban 2.5 MG BID 09/10 1000 AC 09/11 PO 0807 Aspirin Buffered 81 MG QPM 04/06 2200 AC 09/10 PO 2221 Atorvastatin Calcium 40 MG 1700 09/10 1700 AC 09/10 PO 1550 Budesonide/ 2 PUF BID 09/10 1000 AC 09/11 Formoterol Fumarate INH 0811 Carvedilol 25 MG BID 09/10 1000 AC 09/11 PO 0806 Doxazosin Mesylate 2 MG BID 09/10 1000 AC 09/11 PO 0807 Duloxetine HCl 30 MG DAILY 09/10 1000 AC 09/11 PO 0807 Escitalopram Oxalate 10 MG DAILY 09/10 1000 AC 09/11 PO 0810 Ferrous Sulfate 325 MG DAILY 09/10 1000 AC 09/11 PO 0806 Hydralazine HCl 100 MG TID 09/10 1000 AC 09/11 PO 0805 Insulin Aspart 0 TIDAC 09/10 0800 AC SC Insulin Detemir 8 UNITS BID 09/10 1000 AC 09/11 SC 0818 Isosorbide 60 MG DAILY 09/10 1000 AC 09/11 Mononitrate PO 0807 Levothyroxine Sodium 0.15 MG DAILY AC 09/10 0700 AC 09/11 PO 0609 Loratadine 10 MG DAILY 09/10 2000 AC 09/11 PO 0810 Sodium Chloride 1,000 ML Q20H 09/10 1500 DC / IV 09/11 1059 1550 Results Pertinent Lab Results: Laboratory Tests 09/11 09/10 04/05 0650 0643 1931 Chemistry Sodium (137 - 145 mmol/L) 126 L 128 L Potassium (3.5 - 5.1 mmol/L) 4.0 4.3 Chloride (98 - 107 mmol/L) 86 L 84 L Carbon Dioxide (22 - 30 mmol/L) 25 23 Anion Gap (5 - 16) 16 21 H BUN (7 - 17 mg/dL) 134 *H 135 *H Creatinine (0.5 - 1.0 mg/dL) 4.0 H 4.3 H Estimated GFR (>60 ml/min) 11 L 10 L BUN/Creatinine Ratio (7 - 25 %) 33.5 H 31.4 H Phosphorus (2.5 - 4.5 mg/dL) 6.9 H Magnesium (1.6 - 2.3 mg/dL) 2.4 H Ehr-O-Ejvtjvjdczc Pept (<125 pg/mL) 81411 H Hematology CBC w Diff NO MAN DIFF REQ WBC (4.8 - 10.8 /CUMM) 9.3 RBC (4.20 - 5.40 /CUMM) 3.49 L Hgb (12.0 - 16.0 G/DL) 10.0 L Hct (37 - 47 %) 29.5 L MCV (81.0 - 99.0 FL) 84.5 MCH (27.0 - 31.0 PG) 28.7 MCHC (33.0 - 37.0 G/DL) 34.0 RDW (11.5 - 14.5 %) 13.9 Plt Count (130 - 400 /CUMM) 223 MPV (7.4 - 10.4 FL) 9.5 Gran % (42.2 - 75.2 %) 61.3 Lymphocytes % (20.5 - 51.1 %) 19.4 L Monocytes % (1.7 - 9.3 %) 12.0 H Eosinophils % (0 - 5 %) 6.6 H Basophils % (0.0 - 2.0 %) 0.7 Absolute Granulocytes (1.4 - 6.5 /CUMM) 5.7 Absolute Lymphocytes (1.2 - 3.4 /CUMM) 1.8 Absolute Monocytes (0.10 - 0.60 /CUMM) 1.1 H Absolute Eosinophils (0.0 - 0.7 /CUMM) 0.6 Absolute Basophils (0.0 - 0.2 /CUMM) 0.1 Urines Urine Color Cancelled Urine Clarity Cancelled Urine pH Cancelled Ur Specific Dutton Cancelled Urine Protein Cancelled Urine Ketones Cancelled Urine Nitrite Cancelled Urine Bilirubin Cancelled Urine Urobilinogen Cancelled Ur Leukocyte Esterase Cancelled Ur Microscopic Cancelled Urine Hemoglobin Cancelled Urine Glucose Cancelled 09/09 09/09 09/09 193 1835 1825 Chemistry Sodium (137 - 145 mmol/L) 126 L Potassium (3.5 - 5.1 mmol/L) 4.5 Chloride (98 - 107 mmol/L) 81 L Carbon Dioxide (22 - 30 mmol/L) 23 Anion Gap (5 - 16) 21 H BUN (7 - 17 mg/dL) 134 *H Creatinine (0.5 - 1.0 mg/dL) 4.2 H Estimated GFR (>60 ml/min) 10 L BUN/Creatinine Ratio (7 - 25 %) 31.9 H Glucose (65 - 99 mg/dL) 111 H Serum Osmolality (285 - 295 MOSM/KG) 317 H Calcium (8.4 - 10.2 mg/dL) 9.8 Magnesium (1.6 - 2.3 mg/dL) 2.5 H Total Bilirubin (0.2 - 1.3 mg/dL) 0.9 AST (14 - 36 U/L) 12 L ALT (9 - 52 U/L) 18 Alkaline Phosphatase (<127 U/L) 84 Troponin I (< 0.11 ng/ml) < 0.01 Total Protein (6.3 - 8.2 g/dL) 7.7 Albumin (3.5 - 5.0 g/dL) 4.6 Globulin (1.9 - 4.2 gm/dL) 3.1 Albumin/Globulin Ratio (1.1 - 2.2 %) 1.5 Hematology CBC w Diff NO MAN DIFF REQ WBC (4.8 - 10.8 /CUMM) 9.8 RBC (4.20 - 5.40 /CUMM) 3.83 L Hgb (12.0 - 16.0 G/DL) 10.9 L Hct (37 - 47 %) 32.5 L MCV (81.0 - 99.0 FL) 84.8 MCH (27.0 - 31.0 PG) 28.5 MCHC (33.0 - 37.0 G/DL) 33.6 RDW (11.5 - 14.5 %) 14.6 H Plt Count (130 - 400 /CUMM) 250 MPV (7.4 - 10.4 FL) 9.3 Gran % (42.2 - 75.2 %) 65.0 Lymphocytes % (20.5 - 51.1 %) 17.3 L Monocytes % (1.7 - 9.3 %) 11.7 H Eosinophils % (0 - 5 %) 5.5 H Basophils % (0.0 - 2.0 %) 0.5 Absolute Granulocytes (1.4 - 6.5 /CUMM) 6.4 Absolute Lymphocytes (1.2 - 3.4 /CUMM) 1.7 Absolute Monocytes (0.10 - 0.60 /CUMM) 1.2 H Absolute Eosinophils (0.0 - 0.7 /CUMM) 0.5 Absolute Basophils (0.0 - 0.2 /CUMM) 0 Toxicology Methadone Screen Cancelled Barbiturate Screen Cancelled Ur Phencyclidine Scrn Cancelled Amphetamines Screen Cancelled U Benzodiazepines Scrn Cancelled Urine Cocaine Screen Cancelled Urine Cannabis Screen Cancelled Urines Ur Random Creatinine Cancelled Ur Random Sodium Cancelled Ur Random Potassium Cancelled Fraction Sodium Excret Cancelled
--- NOTE | 2017-09-12 06:55 | PN- Housestaff ---
[facility] 09/12/17 0654: Subjective Follow-up For: Hypovolemic hyponatremia Acute on chronic kidney injury Tele-Events Since Last Visit: Sinus ember heart rate between 5860 with PVCs Subjective: No overnight events. Patient remained afebrile. Seen and examined this morning. Patient denied any chest pain, short of breath, palpitation, cough, sputum, dizziness and dysuria. Patient is using CPAP at nighttime. Her saturation is 90% on room air. Review of Systems Constitutional: Denies: chills, fever. EENTM: Reports: no symptoms. Cardiovascular: Denies: chest pain, palpitations. Respiratory: Denies: cough, short of breath, sputum production. Gastrointestinal: Reports: no symptoms. Genitourinary: Reports: no symptoms. Musculoskeletal: Reports: no symptoms. Neurological/Psychological: Reports: no symptoms. Objective Last 24 Hrs of Vital Signs/I&O Vital Signs Date Time Temp Pulse Resp B/P B/P Pulse O2 O2 Flow FiO2 Mean Ox Delivery Rate 09/114 98.3 63 18 90 Room Air 09/11 2117 68 144/60 09/11 2117 68 144/60 09/11 1600 52 142/60 09/11 1415 98.0 52 20 142/60 92 Room Air 09/11 0809 60 130/50 /07 0807 60 130/50 /07 0806 60 130/50 Intake & Output 09/12 1600 08 0800 04/08 0000 Intake Total 200 240 Output Total 425 450 Balance -225 -210 Intake, Oral 200 240 Output, Urine 425 450 Patient 186 lb Weight Physical Exam General Appearance: Alert, Oriented X3, Cooperative Skin Temp/Moisture Exam: Warm/Dry Sepsis Skin Exam (color): Normal for Ethnicity HEENT: Atraumatic, PERRLA, EOMI Neck: Supple Cardiovascular: Normal S1, Normal S2 Lungs: Bibasilar crackles Abdomen: Soft, No Tenderness Neurological: Normal Speech, Strength at 5/5 X4 Ext, Normal Tone, Sensation Intact Extremities: No Edema Assessment/Plan Assessment: 72 year old female with past medical history significant for coronary artery disease s/p stents, hypertension, diabetes, HFpEF, CKD stage IV, COPD recently hospitalization with CHF exacerbation from 08/10/2017-08/16/2017 was sent in for management of acute kidney injury during outpatient diuresis. We are following the patient on tele floor for following problems: Acute on chronic kidney injury: -Patient baseline creatinine level is 2.6, came in with Cr 4.2 -> 4.0 on latest lab. -Probably due to dehydration and use of diuretics. -We are holding her Lasix, Bumex and metolazone -Avoid nephrotoxins medications -Monitor input and output, 1000cc fluid restriction daily -We will monitor BP -Nephrology consult appreciated Hyponatremia: -Hypervolemic hyponatremia -Serum sodium 126 on latest lab, previously in 130s on discharge last month -Check serum osmoles and urinary electrolytes -Likely related to aggressive diuresis and congestive heart failure History of atrial fibrillation: -Continue eliquis and carvedilol -Goal HR <110 History of diastolic CHF: -Diuretics and ACEi on hold because of STEVE -Continue beta blockade -Check daily weights -Strict I/O's -Appears volume overloaded but intravascularly depleted from aggressive diuresis History of CAD: -Continue aspirin, beta blockers History of HTN: -Continue norvasc and hydralazine -Hold ARB -Hold diuretics History of DM: -Diabetic diet -Hold oral hypoglycemics -Accuchecks TIDAC/HS -Levemir 8 units SC BID, on 26 units daily at home -Novolog insulin sliding scale History of Hypothyroidism: -Continue synthroid 150mcg -TSH elevated on previous admission History of COPD/SUSIE: -TRC evaluation -Currently saturating well on room air -CPAP set up 12cm H2O History of Depression: -Continue cymbalta and lexapro H/O Spinal stenosis: -Ofirmev and if required opioids for analgesia -Avoid NSAIDs with STEVE -Scheduled for spinal fusion at the end of the month DVT ppx: -Mechanical and patient is already on on eliquis CODE STATUS Full code Problem List: 1. Hyponatremia 2. Acute on chronic renal failure Pain Ratin Pain Location: none Pain Goal: Remain pain free Pain Plan: pain pathway Tomorrow's Labs & Rationales: francie Ag MD,Artis 09/12/17 1150: Attending MD Review Statement Attending Statement Attending Assessment/Plan: Attending Statement: examined this patient, discuss w/resident/PA/SPECTROSCOPIST, agreed w/resident/PA/SPECTROSCOPIST, reviewed EMR data (avail) Attending Assessment/Plan: Patient is lying comfortably in bed she denies any new complaints overnight. She is afebrile with stable vital signs her saturation 90% on room air. Her is at the bedside. Her chest exam is clear. No edema is noted. Abdomen soft nontender. Neuro exam is nonfocal. Labs show creatinine of 3.9 BUN of 135 sodium 129. Magnesium level is 2.3 Assessment plan * Acute and chronic renal failure- continue to hold diuretics; patient status post her 1 L of normal saline yesterday with slight improvement in creatinine. Recheck creatinine tomorrow; await further nephrology input. * Diabetes- blood glucose well controlled plans to continue current regimen * Out of bed and ambulate with assist
[2017-09-12 13:45] VITALS: BP 114/44
--- NOTE | 2017-09-12 15:51 | PN- Cardiology ---
Subjective Subjective: The patient is out of bed and feeling well. No chest pain. No shortness breath. No palpitations. No lightheadedness or dizziness. No nausea or vomiting. Objective Vital Signs and I&Os Vital Signs Date Time Temp Pulse Resp B/P B/P Pulse O2 O2 Flow FiO2 Mean Ox Delivery Rate 09/12 1345 98.0 63 18 114/44 93 Room Air 09/12 0811 63 144/60 09/12 0810 63 144/60 09/12 0808 63 144/60 09/12 0808 63 144/60 09/11 2234 98.3 63 18 90 Room Air 09/118 68 144/60 09/11 2117 68 144/60 09/11 1600 52 142/60 Intake & Output 09/12 1600 09/12 0000 09/11 1600 09/11 0000 Intake Total 200 240 300 200 600 Output Total 425 450 125 200 600 Balance -225 -210 175 0 0 Intake, IV 360 Intake, Oral 200 240 300 200 240 Output, Urine 425 450 125 200 600 Patient 186 lb 147 lb Weight Physical Exam: Gen: NAD HEENT: normal Lungs: clear to auscultation, normal resp. effort Heart: RRR, S1, S2, no murmurs Abdomen: Soft, nontender, no masses Extremities: No clubbing, cyanosis, or edema. Neuro: Alert and oriented x 3, cranial nerves intact Current Medications: Current Medications Sig/Larissa Start time Last Medication Dose Route Stop Time Status Admin Acetaminophen/ 1 TAB Q6P PRN 09/09 2100 AC 09/09 Codeine Phosphate PO 2114 Albuterol Sulfate 1 PUF Q4P PRN 09/10 0200 AC INH Amlodipine Besylate 10 MG DAILY 09/10 1000 AC 09/12 PO 0808 Apixaban 2.5 MG BID 09/10 1000 AC 09/12 PO 0811 Aspirin Buffered 81 MG QPM 09/10 2200 AC 09/11 PO 2115 Atorvastatin Calcium 40 MG 1700 09/10 1700 AC 09/11 PO 1646 Budesonide/ 2 PUF BID 09/10 1000 AC 09/12 Formoterol Fumarate INH 0812 Carvedilol 25 MG BID 09/10 1000 AC 09/12 PO 0810 Doxazosin Mesylate 2 MG BID 09/10 1000 AC 09/12 PO 0808 Duloxetine HCl 30 MG DAILY 09/10 999 AC 09/12 PO 0812 Escitalopram Oxalate 10 MG DAILY 09/10 999 AC 09/12 PO 0807 Ferrous Sulfate 325 MG DAILY 09/10 999 AC 09/12 PO 0811 Hydralazine HCl 100 MG TID 09/10 999 AC 09/12 PO 0811 Insulin Aspart 0 TIDAC 09/11 799 AC 09/12 SC 1209 Insulin Detemir 8 UNITS BID 09/10 999 AC 09/12 SC 0819 Isosorbide 60 MG DAILY 09/10 999 AC 09/12 Mononitrate PO 08 Levothyroxine Sodium 0.15 MG DAILY AC 09/10 699 AC 09/12 PO 0617 Loratadine 10 MG DAILY 09/11 1999 AC 09/12 PO 0811 Results Last 48 Hrs of Labs/Mics: Laboratory Tests 09/12/17 0615: Anion Gap 18 H, Estimated GFR 11 L, BUN/Creatinine Ratio 34.6 H, Magnesium 2.3 09/11/17 0650: Anion Gap 16, Estimated GFR 11 L, BUN/Creatinine Ratio 33.5 H Assessment/Plan Assessment/Plan Assessment: 1. CAD, status post coronary stents 2. Hypertension 3. Chronic HFpEF 4. Diabetes mellitus 5. Chronic kidney disease, with acute exacerbation Plan: * Keep off diuretics and ARB for now. * Continue other hypertension medications. * Once renal function has improved, will discharge on bumetanide 3 mg twice daily. * Check basic metabolic profile daily Continue telemetry? Yes
[2017-09-12 21:50] VITALS: BP 132/66
--- NOTE | 2017-09-13 06:58 | PN- Housestaff ---
[place] 09/13/17 0658: Subjective Follow-up For: Hypovolemic hyponatremia Acute on chronic kidney injury Tele-Events Since Last Visit: Patient remained in sinus rhythm with first-degree heart block and heart rate in 60s with couple of PVCs Subjective: Patient remained afebrile overnight. Seen and examined this morning. She is using CPAP at nighttime. Her oxygen saturation was 94%. Patient denied any chest pain, palpitation, short of breath, nausea, vomiting, chills, fever, abdominal pain dysuria. Review of Systems Constitutional: Denies: chills, fever, weakness. EENTM: Reports: no symptoms. Cardiovascular: Denies: chest pain, palpitations. Respiratory: Denies: cough, short of breath, sputum production. Gastrointestinal: Reports: no symptoms. Genitourinary: Reports: no symptoms. Musculoskeletal: Reports: no symptoms. Neurological/Psychological: Reports: no symptoms. Objective Last 24 Hrs of Vital Signs/I&O Vital Signs Date Time Temp Pulse Resp B/P B/P Pulse O2 O2 Flow FiO2 Mean Ox Delivery Rate 09/13 0701 98.0 60 12 150/66 94 CPAP 08 2308 Room Air 09/12 2204 64 94 /08 2201 64 132/66 04/08 2200 64 132/66 04/08 2150 98.2 63 18 132/66 92 Room Air /08 1634 63 114/44 04/08 1345 98.0 63 18 114/44 93 Room Air /08 0811 63 144/60 04/08 0810 63 144/60 04/08 0808 63 144/60 /08 0808 63 144/60 Intake & Output 09/13 0800 09/13 0000 09/12 1600 Intake Total 120 360 300 Output Total 300 425 Balance -180 -65 300 Intake, Oral 120 360 300 Output, Urine 300 425 Patient 186 lb Weight Weight Bed scale Measurement Method Physical Exam General Appearance: Alert, Oriented X3, Cooperative Skin Temp/Moisture Exam: Warm/Dry Sepsis Skin Exam (color): Normal for Ethnicity HEENT: Atraumatic, PERRLA, EOMI Neck: Supple Cardiovascular: Normal S1, Normal S2 Lungs: Clear to Auscultation Abdomen: Soft, No Tenderness Neurological: Normal Speech, Strength at 5/5 X4 Ext, Normal Tone Extremities: No Edema Assessment/Plan Assessment: 72 year old female with past medical history significant for coronary artery disease s/p stents, hypertension, diabetes, HFpEF, CKD stage IV, COPD recently hospitalization with CHF exacerbation from 08/10/2017-08/16/2017 was sent in for management of acute kidney injury during outpatient diuresis. We are following the patient on tele floor for following problems: Acute on chronic kidney injury: -Patient baseline creatinine level is 2.6, came in with Cr 4.2 -> 4.0 on latest lab. -Probably due to dehydration and use of diuretics. -We are holding her Lasix, Bumex and metolazone -Avoid nephrotoxins medications -Monitor input and output, 1000cc fluid restriction daily -We will monitor BP -Nephrology consult appreciated Hyponatremia: -Hypervolemic hyponatremia -Serum sodium 129 yesterday. -Likely related to aggressive diuresis and congestive heart failure -Patient was given iv N/S yesterday we will check Na and creatinine level today. History of atrial fibrillation: -Continue eliquis and carvedilol. History of diastolic CHF: -Diuretics and ACEi on hold because of STEVE -Continue beta alison History of CAD: -Continue aspirin, beta blockers History of HTN: -Continue norvasc and hydralazine -Hold ARB -Hold diuretics History of DM: -Diabetic diet -Accuchecks TIDAC/HS -Levemir 8 units SC BID. -Novolog insulin sliding scale History of Hypothyroidism: -Continue synthroid 150mcg -TSH elevated on previous admission History of COPD/SUSIE: -TRC evaluation -Currently saturating well on room air -CPAP set up 12cm H2O History of Depression: -Continue cymbalta and lexapro H/O Spinal stenosis: -Ofirmev and if required opioids for analgesia -Avoid NSAIDs with STEVE -Scheduled for spinal fusion at the end of the month DVT ppx: -Mechanical and patient is already on on eliquis CODE STATUS Full code Problem List: 1. Hyponatremia 2. Acute on chronic renal failure Pain Ratin Pain Location: none Pain Goal: Remain pain free Pain Plan: pain pathway Tomorrow's Labs & Rationales: francie Ag MD,[facility] 09/13/17 1128: Attending MD Review Statement Attending Statement Attending Assessment/Plan: Attending MD Statement: examined this patient, discuss w/resident/PA/SUPERANNUATION CLERK, agreed w/resident/PA/SUPERANNUATION CLERK, reviewed EMR data (avail) Attending Assessment/Plan: Patient is lying comfortably in bed she denies any new complaints overnight. She is afebrile with stable vital signs her saturation 94% on room air. Her chest exam is clear. No edema is noted. Abdomen soft nontender. Neuro exam is nonfocal. Labs show creatinine of 3.7 BUN of 135 sodium 129. Assessment plan * Acute and chronic renal failure- continue to hold diuretics; her creatinine has been gradually improving. At this point I feel the patient can be discharged home and can follow-up with nephrology as outpatient. Continue to hold diuretics upon discharge. Patient should have a blood work for chemistry in about 3 days. * Hyponatremia- improving very slowly but patient is asymptomatic * Diabetes- blood glucose well controlled plans to continue current regimen * Out of bed and ambulate with assist
[2017-09-13 07:01] VITALS: BP 150/66
[2017-09-13 08:19] VITALS: BP 150/70
--- NOTE | 2017-09-13 11:24 | PN- Nephrology ---
Assessment/Plan Nephrology Assessment: 1. STEVE: improving prerenal due to over diuresis; no dialysis indication 2. CKD: stage 4 w baseline Cr 2s due to DM, HTN, & cardiorenal syndrome 3. Hyponatremia: improved; continue fuid restriction. No indication for V2 receptor blockade Suggestion: 1. continue w/o diuretics 2. OK for d/c from renal perspective --> has outpt appt w pre labs our office 09/17 Subjective Subjective: No SOB No gross uremic sx Review of Systems Constitutional: Reports: no symptoms. EENTM: Reports: no symptoms. Cardiovascular: Reports: no symptoms. Respiratory: Reports: no symptoms. Gastrointestinal: Reports: no symptoms. Genitourinary: Reports: no symptoms. Objective Vital Signs and I&Os Vital Signs Date Time Temp Pulse Resp B/P B/P Pulse O2 O2 Flow FiO2 Mean Ox Delivery Rate 09/14 0719 60 150/70 09/14 0718 60 150/70 09/13 0817 60 150/70 09/13 0817 60 150/70 09/13 0800 94 Room Air 09/13 0701 98.0 60 12 150/66 94 CPAP 09/12 2308 Room Air 09/12 2204 64 94 08 2201 64 132/66 09/12 2200 64 132/66 09/12 2150 98.2 63 18 132/66 92 Room Air 09/12 1634 63 114/44 08 1345 98.0 63 18 114/44 93 Room Air Intake & Output 09/13 1600 09/13 0400 09/12 1600 09/12 0400 09/11 1600 09/11 0400 Intake Total 120 360 500 240 500 600 Output Total 300 425 425 450 325 600 Balance -180 -65 75 -210 175 0 Intake, IV 360 Intake, Oral 120 360 500 240 500 240 Output, Urine 300 425 425 450 325 600 Patient 186 lb 186 lb 147 lb Weight Weight Bed scale Measurement Method Physical Exam General Appearance: well developed/nourished, no apparent distress, alert Head: atraumatic, normal appearance Ears, Nose, Throat: normal ENT inspection Neck: normal inspection Respiratory: normal breath sounds, no respiratory distress, quiet respiration, lungs clear Cardiovascular: regular rate/rhythm, friction rub (none) Abdomen: soft, non-tender, no organomegaly Extremities: no edema Neurologic/Psychiatric: no motor/sensory deficits, awake, alert, oriented x 3 Skin: normal color, warm/dry, pallor Lymphatic: no anterior cervical yenni Current Medications: Current Medications Sig/Larissa Start time Last Medication Dose Route Stop Time Status Admin Acetaminophen/ 1 TAB Q6P PRN 09/09 2100 AC 09/09 Codeine Phosphate PO 2114 Albuterol Sulfate 1 PUF Q4P PRN 09/10 0200 AC INH Amlodipine Besylate 10 MG DAILY 09/10 1000 AC 09/13 PO 0819 Apixaban 2.5 MG BID 09/10 1000 AC 09/13 PO 0818 Aspirin Buffered 81 MG QPM 09/10 2200 AC 09/12 PO 2159 Atorvastatin Calcium 40 MG 1700 09/10 1700 AC 09/12 PO 1634 Bisacodyl 10 MG Q12P PRN 09/12 204 AC DC Bisacodyl 5 MG DAILY 09/12 204 AC PO Budesonide/ 2 PUF BID 09/10 1000 AC 09/13 Formoterol Fumarate INH 0819 Carvedilol 25 MG BID 09/10 1000 AC 09/13 PO 0818 Doxazosin Mesylate 2 MG BID 09/10 1000 AC 09/13 PO 0818 Duloxetine HCl 30 MG DAILY 09/10 1000 AC 09/13 PO 0818 Escitalopram Oxalate 10 MG DAILY 09/10 1000 AC 09/13 PO 0819 Ferrous Sulfate 325 MG DAILY 09/10 1000 AC 09/13 PO 0819 Hydralazine HCl 100 MG TID 09/10 1000 AC 09/13 PO 0817 Insulin Aspart 0 TIDAC 09/10 08 AC 09/12 SC 1209 Insulin Detemir 8 UNITS BID 09/10 1000 AC 09/13 SC 0821 Isosorbide 60 MG DAILY 09/10 1000 AC 09/13 Mononitrate PO 0817 Levothyroxine Sodium 0.15 MG DAILY AC 09/10 07 AC 09/13 PO 0544 Loratadine 10 MG DAILY 09/11 1999 AC 09/13 PO 0818 Polyethylene Glycol 17 GM AT BEDTIME 09/12 2199 AC PO Senna/Docusate Sodium 1 TAB BID 09/12 2200 AC 09/13 PO 0819 Results Pertinent Lab Results: Laboratory Tests 09/13 09/12 04/07 0615 0615 0650 Chemistry Sodium (137 - 145 mmol/L) 129 L 129 L 126 L Potassium (3.5 - 5.1 mmol/L) 3.8 3.9 4.0 Chloride (98 - 107 mmol/L) 88 L 87 L 86 L Carbon Dioxide (22 - 30 mmol/L) 26 24 25 Anion Gap (5 - 16) 15 18 H 16 BUN (7 - 17 mg/dL) 132 *H 135 *H 134 *H Creatinine (0.5 - 1.0 mg/dL) 3.7 H 3.9 H 4.0 H Estimated GFR (>60 ml/min) 12 L 11 L 11 L BUN/Creatinine Ratio (7 - 25 %) 35.7 H 34.6 H 33.5 H Magnesium (1.6 - 2.3 mg/dL) 2.3 Imaging/Other Studies: CXR: The cardiac silhouette is enlarged, but stable. There is a stable degree of interstitial prominence throughout both lungs. There are no consolidations. The lungs are mildly hyperinflated. The osseous structures are stable with a spinal stimulator in place. IMPRESSION: Stable enlarged cardiac silhouette and stable degree of vascular congestion.
--- NOTE | 2017-09-13 11:53 | Patient Discharge Instructions ---
Discharge Instructions General Discharge Information You were seen/treated for: Hyponatremia Acute on chronic kidney injury Watch for these problems: Chest pain, palpitation, shortness of breath, leg swelling, decreased urine output, dizziness, nausea and vomiting. If you experience any of these symptoms then come to ED or call to your PCP Special Instructions: -Follow up with pcp in one week. -Follow up with real estate director in one week. -Follow up with cardiologis in one week. We are holding your diuretics and ARBs because of kidney dysfunction. Please discuss with your real estate director and financial compliance manager to find when to start these medications. -Check BEP on 09/15/17. Diet Recommended Diet: Renal Non Dialysis Activity Activity Self Limited: Yes Acute Coronary Syndrome Inclusion Criteria At DC or during hospital stay patient has or had the following: ACS DIAGNOSIS No Discharge Core Measures Meds if any: Prescribed or Continued at Discharge Meds if any: NOT Prescribed or Continued at Discharge Congestive Heart Failure Inclusion Criteria At DC or during hospital stay patient has or had the following: CHF DIAGNOSIS No Discharge Core Measures Meds if any: Prescribed or Continued at Discharge Meds if any: NOT Prescribed or Continued at Discharge Cerebrovascular accident Inclusion Criteria At DC or during hospital stay patient has or had the following: CVA/TIA Diagnosis No Discharge Core Measures Meds if any: Prescribed or Continued at Discharge Meds if any: NOT Prescribed or Continued at Discharge Venous thromboembolism Inclusion Criteria VTE Diagnosis No VTE Type NONE VTE Confirmed by (Test) NONE Discharge Core Measures - Per Current guidelines, there needs to be overlap - treatment for the first 5 days of Warfarin therapy. - If discharged on Warfarin prior to 5 days of - overlap therapy, the patient will need to be - assessed for post discharge needs including - *Post discharge parental anticoagulation - *Warfarin and/or parental anticoagulation education - *Follow up date to check INR post discharge At least 5 days overlap therapy as Inpatient No Meds if any: Prescribed or Continued at Discharge Note: Overlap Therapy is Warfarin and Anticoagulant Meds if any: NOT Prescribed or Continued at Discharge
--- NOTE | 2017-09-13 11:56 | Discharge Summary ---
Visit Information Visit Dates Admission Date: 09/09/17 Discharge Date: 09/13/17 Hospital Course Course Attending Physician: Harrison Michelle MD Primary Care Physician: Sal GUTIERREZ,[facility] Course: 72 year old female with past medical history significant for coronary artery disease s/p stents, hypertension, diabetes, HFpEF, CKD stage IV, COPD recently hospitalization with CHF exacerbation from 08/10/2017-08/16/2017 was sent in for management of acute kidney injury during outpatient diuresis. ED course: Vitals: Temperature 97.2, pulse 64, respiratory rate 16, blood pressure 139/57, oxygen saturation 93% on room air Labs: WBC count 9.8, hemoglobin 10.9, hematocrit 32.5, platelet count 250, sodium 126, potassium 4.5, BUN 134, creatinine 4.2, anion gap 21, BUN/creatinine ratio 31.9, glucose 111, serum osmolality 317, magnesium 2.5, troponin less than 0.01 Acute on chronic kidney injury: Patient was admitted with acute on chronic kidney injury possibly due to dehydration and use of diuretics. Nephrology consult was obtained. Her diuretics and ARBs were discontinued. All nephrotoxic medications were provided. Input and output was monitored. Gentle IV hydration was done. Later on patient was encouraged to take oral fluids. Nephrology recommendations were followed. Cardiology agreed to discontinue the Lasix and ARBs in the setting of acute on chronic kidney injury. Later on patient's kidney function started to improve and she was instructed to follow nephrology as outpatient. Hyponatremia: Possibly due to dehydration due to aggressive diuresis and congestive heart failure. Nephrology consult was obtained and recommendations were followed. Patient was put on thousand mL water restriction. Initially patient was given gentle IV hydration considering her acute on chronic kidney injury. Patient's sodium level started to improve but it's slow process. Patient remained asymptomatic. She was instructed to follow nephrology as outpatient after the discharge. She was also instructed to check her BP on 09/15/2017 before she go to nephrology clinic. History of atrial fibrillation: We continued eliquis and carvedilol. History of diastolic CHF: Patient had a history of diastolic congestive heart failure. Her diuretics and ARBs were discontinued because of acute on chronic kidney injury and hyponatremia. Cardiology consult was obtained considering patient can get congestive heart failure as well stopped her diuretics. Cardiology agreed to discontinue diuretics and ARBs. Patient was instructed to follow cardiology as outpatient to reassess before starting the diuretics and ARBs. History of CAD: Continued aspirin, beta blockers History of HTN: Continued norvasc and hydralazine. History of DM: Accu-Cheks were checked. In hospital patient was given Levemir 8 units twice a day and insulin NovoLog according to sliding scale. After discharge her home dose of Levemir was continued and also insulin NovoLog with sliding scale. History of Hypothyroidism: Continued levothyroxin. History of COPD/SUSIE: Patient received TRC nebulization as needed and she continued CPAP at nighttime. History of Depression: Continued cymbalta and lexapro H/O Spinal stenosis: Pain pathway was followed to control her pain and and NSAIDs were avoided due to kidney injury DVT prophylaxis: Mechanical and patient was already on on eliquis CODE STATUS Full code Allergies: Coded Allergies: povidone-iodine (From BETADINE) (RASH 04/11/17) ITCH PER ANTIBIOTIC ORDER SHEET OF 12/04/16 (SJS) soap (From BETADINE) (RASH 04/11/17) PARISH Inhibitors (Mild, COUGH 04/11/17) Pertinent Lab Results: Chest x-ray on 09/09/17: IMPRESSION: Stable enlarged cardiac silhouette and stable degree of vascular congestion. WBC 9.3, hemoglobin 10.0, hematocrit 29.5, platelet count 223, sodium 129, potassium 3.8, BUN 132, creatinine 3.7, BUN/creatinine ratio 35.7, magnesium 2.3 Disposition Summary Disposition Principal Diagnosis: Hyponatremia Acute on chronic kidney injury Additional Diagnosis: History of A. fib History of diastolic CHF History of CAD History of hypertension History of diabetes History of COPD/SUSIE History of depression History of spinal stenosis Discharge Disposition: home health services Discharge Instructions General Discharge Information Code Status: Full Code Patient's Diet: Renal diet Patient's Activity: Self limited Follow-Up Instructions/Appts: -Follow up with pcp in one week. -Follow up with supervisor carpenters in one week. -Follow up with cardiologis in one week. We are holding your diuretics and ARBs because of kidney dysfunction. Please discuss with your supervisor carpenters and communication equipment mechanic to find when to start these medications. -Check BEP on 09/15/17. Medications at Discharge Discharge Medications: Stop taking the following medications: Bumetanide (Bumetanide) 1 MG TABLET ORAL TWICE DAILY Azilsartan Medoxomil (Edarbi) 80 MG TABLET ORAL DAILY Metolazone (Metolazone) 2.5 MG TABLET ORAL TUESFRI Continue taking these medications: Hydralazine HCl (Hydralazine HCl) 100 MG TABLET 1 Tablet ORAL THREE TIMES DAILY Comments: Last Taken: 09/13/17 Time: 8:15 AM Fluticasone/Salmeterol (Advair 250-50 Diskus) 1 EACH BLST.W.DEV 1 Puff Inhale through mouth TWICE DAILY Comments: NOT GIVEN THIS ADMISSION. SYMBOCORT GIVEN SUBSTITUTE Rosuvastatin Calcium (Crestor) 20 MG TABLET 1 Tablet ORAL Every night Comments: GIVEN LIPITOR IN HOSPITAL Last Taken: 09/12/17 Time: 4:30 PM Carvedilol (Coreg) 25 MG TABLET 1 Tablet ORAL TWICE DAILY Qty = 30 Comments: Last Taken: 09/13/17 Time: 8:15 AM Albuterol Sulfate (Proair Hfa) 90 MCG HFA.AER.AD 1 Puff Inhale through mouth As Directed as needed for ASTHMA Comments: NOT GIVEN IN HOSPITAL Aspirin (Ecotrin*) 81 MG TABLET.DR 1 Tablet ORAL Every night Comments: Last Taken: 09/13/17 Time: 8:15 AM Alpha Lipoic Acid (Alpha Lipoic Acid) 300 MG CAPSULE 2 Capsule ORAL TWICE DAILY Comments: NOT GIVEN IN HOSPITAL Cholecalciferol (Vitamin D3) (Vitamin D) 1,000 UNIT TABLET 2 Tablet ORAL DAILY Comments: DID NOT RECIEVE IN HOSPITAL Ferrous Sulfate (Ferrous Sulfate) 325 MG (65 MG IRON) TABLET.DR 1 Tablet ORAL DAILY Qty = 30 Comments: Last Taken: 09/13/17 Time: 8:15 AM Isosorbide Mononitrate (Isosorbide Mononitrate ER) 60 MG TAB.ER.24H 1 Tablet ORAL DAILY Comments: Last Taken: 09/13/17 Time: 8:15 AM Doxazosin Mesylate (Cardura) 2 MG TABLET 1 Tablet ORAL TWICE DAILY Comments: Last Taken: 09/13/17 Time: 8:15 AM Pelsor-3 Fatty Acids/Fish Oil (Fish Oil 1,000 MG Capsule) 340 MG-1,000 MG CAPSULE 1 Capsule ORAL TWICE DAILY Comments: DID NOT RECIEVE IN HOSPITAL Difluprednate (Durezol) 0.05 % DROPS 1 Drop Right Eye THREE TIMES DAILY Qty = 5 Comments: NOT GIVEN THIS ADMISSION Insulin Detemir (Levemir) 100 UNIT/ML VIAL 26 Units Inject into fatty tissue Every night Qty = 1 Comments: Last Taken: 09/13/17 Time: 8:15 AM RECIEVED 8 UNITS Amlodipine Besylate (Norvasc) 10 MG TABLET 1 Tablet ORAL DAILY Qty = 30 Instructions: . Comments: Last Taken: 09/12/17 Time: 8:15 AM Levothyroxine Sodium (Levothyroxine Sodium) 150 MCG TABLET 1 Tablet ORAL DAILY Qty = 30 Instructions: . Comments: Last Taken: 09/13/17 Time: 6 AM Dulaglutide (Trulicity) 0.75 MG/0.5 ML PEN.INJCTR 0.5 Milligram Inject into fatty tissue EVERY WEDNESDAY Comments: NOT GIVEN THIS ADMISSION Apixaban (Eliquis) 2.5 MG TABLET 2.5 Milligram ORAL TWICE DAILY Days = 30 Comments: Last Taken: 09/13/17 Time: 8:15 AM Iron Sucrose Complex (Venofer) 200 MG IRON/10 ML VIAL 200 Milligram INTRAVEN Every other day Qty = 2 Comments: DID NOT RECIEVE THIS ADMISSION Duloxetine Hydrochloride (Cymbalta) 30 MG CAPSULE.DR 1 Capsule ORAL DAILY Comments: Last Taken: 09/13/17 Time: 8:15 AM Epinastine HCl (Epinastine HCl) 0.05 % DROPS 1 DROP Both Eyes TWICE DAILY Qty = 5 Comments: NOT GIVEN IN HOSPITAL Escitalopram Oxalate (Escitalopram Oxalate) 10 MG TABLET 1 Tablet ORAL DAILY Qty = 30 Comments: Last Taken: 09/13/17 Time: 8:15 AM Acetaminophen With Codeine (Acetaminophen-Cod #3 Tablet) 300 MG-30 MG TABLET 1 Tablet ORAL EVERY SIX HOURS NEEDED as needed for PAIN Qty = 60 Comments: Last Taken: 09/09/17 Time: 8:15 The following medications have been changed: Old: Insulin Aspart (Novolog) 100 UNIT/ML VIAL Units Inject into fatty tissue 3 TIMES DAILY BEFORE MEALS New: Insulin Aspart (Novolog) 100 UNIT/ML VIAL 0 Inject into fatty tissue 3 TIMES DAILY BEFORE MEALS Qty = 2 Instructions: BEFORE MEALS Blood Insulin Sugar Units <80 0 81-100 2 101-200 4 201-250 6 251-300 8 301-350 10 351-400 12 >400 Call Doctor AT BEDTIME Blood Insulin Sugar Units <80 0 81-100 0 101-200 0 201-250 2 251-300 3 301-350 4 351-400 5 >400 Call Doctor Comments: Last Taken: 09/13/17 Time: NOON Copies To: Cristofer Lopez MD; Sal GUTIERREZ,Jacinta; Stephen GUTIERREZ,Michelet Gardner; Marcio Mtz MD Time: NOON
--- NOTE | 2017-09-13 12:01 | PN- Cardiology ---
Subjective Subjective: The patient is out of bed sitting comfortably at a table. No current chest pain. No shortness of breath. No palpitations. No lightheadedness or dizziness. No nausea or vomiting. Renal function is significantly improved today, and she has been cleared for discharge by nephrology Objective Vital Signs and I&Os Vital Signs Date Time Temp Pulse Resp B/P B/P Pulse O2 O2 Flow FiO2 Mean Ox Delivery Rate 09/13 818 60 150/70 09/13 817 60 150/70 09/13 816 60 150/70 09/14 0717 60 150/70 09/14 0700 94 Room Air 09/13 0701 98.0 60 12 150/66 94 CPAP 09/12 2308 Room Air 09/12 2204 64 94 09/12 2201 64 132/66 09/12 2200 64 132/66 09/12 2150 98.2 63 18 132/66 92 Room Air 09/12 1634 63 114/44 09/12 1345 98.0 63 18 114/44 93 Room Air Intake & Output 09/13 1600 09/13 0000 09/12 1600 09/12 0000 Intake Total 120 360 300 200 240 Output Total 300 425 425 450 Balance -180 -65 300 -225 -210 Intake, Oral 120 360 300 200 240 Output, Urine 300 425 425 450 Patient 186 lb 186 lb Weight Weight Bed scale Measurement Method Physical Exam: Gen: NAD HEENT: normal Lungs: clear to auscultation, normal resp. effort Heart: RRR, S1, S2, no murmurs Abdomen: Soft, nontender, no masses Extremities: No clubbing, cyanosis, or edema. Neuro: Alert and oriented x 3, cranial nerves intact Current Medications: Current Medications Sig/Larissa Start time Last Medication Dose Route Stop Time Status Admin Acetaminophen/ 1 TAB Q6P PRN 09/09 2100 AC 09/09 Codeine Phosphate PO 2114 Albuterol Sulfate 1 PUF Q4P PRN 09/10 0200 AC INH Amlodipine Besylate 10 MG DAILY 09/10 1000 AC 09/13 PO 0819 Apixaban 2.5 MG BID 09/10 1000 AC 09/13 PO 0818 Aspirin Buffered 81 MG QPM 09/10 2200 AC 09/12 PO 2159 Atorvastatin Calcium 40 MG 1700 09/10 1700 AC 09/12 PO 1634 Bisacodyl 10 MG Q12P PRN 09/12 2044 AC OH Bisacodyl 5 MG DAILY 09/12 204 AC PO Budesonide/ 2 PUF BID 09/10 1000 AC 09/13 Formoterol Fumarate INH 0819 Carvedilol 25 MG BID 09/10 1000 AC 09/13 PO 0818 Doxazosin Mesylate 2 MG BID 09/10 1000 AC 09/13 PO 0818 Duloxetine HCl 30 MG DAILY 09/10 999 AC 09/13 PO 0818 Escitalopram Oxalate 10 MG DAILY 09/10 1000 AC 09/13 PO 0819 Ferrous Sulfate 325 MG DAILY 09/10 1000 AC 09/13 PO 0819 Hydralazine HCl 100 MG TID 09/10 1000 AC 09/13 PO 0817 Insulin Aspart 0 TIDAC 09/11 799 AC 09/12 SC 1209 Insulin Detemir 8 UNITS BID 09/10 1000 AC 09/13 SC 0821 Isosorbide 60 MG DAILY 09/10 1000 AC 09/13 Mononitrate PO 0817 Levothyroxine Sodium 0.15 MG DAILY AC 09/10 07 AC 09/13 PO 0544 Loratadine 10 MG DAILY 09/10 2000 AC 09/13 PO 0818 Polyethylene Glycol 17 GM AT BEDTIME 09/12 2199 AC PO Senna/Docusate Sodium 1 TAB BID 09/12 220 AC 09/13 PO 0819 Results Last 48 Hrs of Labs/Mics: Laboratory Tests 09/13/17 0615: Anion Gap 15, Estimated GFR 12 L, BUN/Creatinine Ratio 35.7 H 09/12/17 0615: Anion Gap 18 H, Estimated GFR 11 L, BUN/Creatinine Ratio 34.6 H, Magnesium 2.3 Assessment/Plan Assessment/Plan Assessment: 1. CAD, status post coronary stents 2. Hypertension 3. Chronic HFpEF 4. Diabetes mellitus 5. Chronic kidney disease, with acute exacerbation Plan: * Nephrology recommends continuing to hold diuretics for now * Once cleared to restart diuretics by nerology would restart bumetanide at reduced dose of 3 mg twice daily. * Follow up with Dr. Mtz within 1 week after discharge Continue telemetry? Yes
[2017-09-13] MEDS ORDERED: NOVOLOG100 UNIT/2 SC (14:21)
== END 2017-09-13 15:15 | disposition home health service (06) | DRG 683 ==
LOC: ERH 15:32 → 1NO 19:31 → ERHI 19:31 → 1NO 19:31 → ENRESERV 21:13 → ENTRNSPT 22:33 → EDTRNSPTSTS 22:37 → 1NO 22:49 → CMPTRNSPT 22:54 → 1NO 09-10 07:44 → ENTRNSPT 09-13 15:09 → EDTRNSPTSTS 09-13 15:12 → 1NO 09-13 15:15 → CMPTRNSPT 09-13 15:29
PROVIDERS: Physician Assistant Medical; Student in an Organized Health Care Education/Training Program
PROC: 5A09357 Assistance with Respiratory Ventilation, Less than 24 Consecutive Hours, Continuous Positive Airway Pressure (ICD-10-PCS; principal; 2017-09-10)
DX: N17.9 Acute kidney failure, unspecified (principal); E87.1 Hypo-osmolality and hyponatremia; I50.32 Chronic diastolic (congestive) heart failure; I48.0 Paroxysmal atrial fibrillation; I11.0 Hypertensive heart disease with heart failure; J44.9 Chronic obstructive pulmonary disease, unspecified; E11.22 Type 2 diabetes mellitus with diabetic chronic kidney disease; N18.4 Chronic kidney disease, stage 4 (severe); F32.9 Major depressive disorder, single episode, unspecified; F41.9 Anxiety disorder, unspecified; I25.10 Atherosclerotic heart disease of native coronary artery without angina pectoris; Z95.5 Presence of coronary angioplasty implant and graft; E03.9 Hypothyroidism, unspecified; I49.3 Ventricular premature depolarization; I08.0 Rheumatic disorders of both mitral and aortic valves; G47.33 Obstructive sleep apnea (adult) (pediatric); G89.29 Other chronic pain; M48.07 Spinal stenosis, lumbosacral region; E83.39 Other disorders of phosphorus metabolism; Z88.8 Allergy status to other drugs, medicaments and biological substances; Z79.4 Long term (current) use of insulin; Z90.89 Acquired absence of other organs
CPT/HCPCS: 1NSP; 84133; 84300; 36592; 71046; 80307; 82436; 82570; 93005; 93010; J3490